=== PATIENT | female | born 1950 | race Caucasian/White ===

== ENCOUNTER 2018-10-13 17:35 | Observation (INO) | payer MEDICARE ==
[2018-10-13 18:16] LABS: Absolute Lymphocytes (CBC) 1.6 K/uL (0.7-4.9); Absolute Monocytes 0.5 K/uL (0.1-1.3); Absolute Neutrophil 5.2 K/uL (1.8-8.0); Eosinophils % 1.2 % (0-4.4); Hematocrit 38.8 % (36.0-45.0); Lymphocytes % 21.8 % (15.3-44.8); MPV 9.8 fL (7.6-11.3); Monocytes % 6.7 % (3.3-12.3); RBC Red Blood Cell Count 4.27 M/uL (3.86-4.86)
[2018-10-13 18:19] LABS: Protime INR 1.05
[2018-10-13] MEDS ORDERED: NITROGLYCERIN 0.4 MG/TAB SL ONE (18:23)
[2018-10-13] MEDS ORDERED: ASPIRIN 81 MG CHEWABLE TABLET ONE (18:23)
[2018-10-13 18:34] LABS: ALT/SGPT 33 U/L (12-78); AST/SGOT 25 U/L (15-37); Albumin 3.6 g/dL (3.4-5.0); Alkaline Phosphatase 95 U/L (45-117); BUN Blood Urea Nitrogen 21 mg/dL (7-18); Bicarbonate 24 mmol/L (21-32); Bilirubin Direct < 0.1 mg/dL (0-0.2); Bilirubin Total 0.4 mg/dL (0.2-1.0); Glucose Level 335 mg/dL (74-106); NT PRO-BNP 39 pg/mL (<125); Potassium 4.4 mmol/L (3.5-5.1); Protein, Total 7.5 g/dL (6.4-8.2); Sodium Level 137 mmol/L (136-145); Troponin (Emerg Dept Use Only) < 0.02 ng/mL (0.0-0.045)
[2018-10-13 18:36] LABS: Magnesium 1.3 mg/dL (1.8-2.4)
--- NOTE | 2018-10-13 18:39 | RAD REPORT ---
EXAM DESCRIPTION: RAD - Chest Single View - 10/13/2018 6:15 pm CLINICAL HISTORY: Chest pain COMPARISON: August 2012 TECHNIQUE: AP portable chest image was obtained 1810 hours . FINDINGS: Lung volumes are low. No peripheral mass or consolidation. Interstitial markings are not s ubstantially different from the comparison. Heart and vasculature are normal. No measurable pleural e ffusion and no pneumothorax. No acute bony abnormality seen. No acute aortic findings suspected. IMPRESSION: No acute cardiopulmonary process. No significant interval change.
[2018-10-13] MEDS ORDERED: MAGNESIUM SULFATE 1 gm IVPB 1 GM/100 ML BAG IV ONE (19:10)
--- NOTE | 2018-10-13 19:24 | ER ---
Nurse's Notes [facility] Name: Annie Zuñiga Age: 68 yrs Sex: Female : 1950 Arrival Date: 10/13/2018 Time: 17:36 Bed 20 Private MD: oHllie Chenug Diagnosis: Chest pain, unspecified-Angina;Shortness of breath;Hypomagnesemia Presentation: 10/13 17:41 Presenting complaint: Patient states: Chest tightness since , SOB starting la1 today. Transition of care: patient was not received from another setting of care. Onset of symptoms was October 13, 2018. Risk Assessment: Do you want to hurt yourself or someone else? Patient reports no desire to harm self or others. Initial Sepsis Screen: Does the patient meet any 2 criteria? No. Patient's initial sepsis screen is negative. Does the patient have a suspected source of infection? No. Patient's initial sepsis screen is negative. Care prior to arrival: None. 17:41 Method Of Arrival: Ambulatory la1 17:41 Acuity: BONI 3 la1 Historical: - Allergies: 17:41 PENICILLINS; la1 - PMHx: 17:41 Diabetes - NIDDM; Gout; Hypertension; kidney failure; ULCER; la1 - Immunization history:: Adult Immunizations up to date. - Social history:: Smoking status: Patient/guardian denies using tobacco. - Ebola Screening: : No symptoms or risks identified at this time. Screenin:51 Abuse screen: Denies threats or abuse. Nutritional screening: No deficits noted. em Tuberculosis screening: No symptoms or risk factors identified. Fall Risk None identified. Assessment: 18:05 General: Appears in no apparent distress. comfortable, Behavior is calm, cooperative, em Denies fever. Pain: Complains of pain in anterior aspect of left upper chest Pain radiates to back Pain currently is 5 out of 10 on a pain scale. Quality of pain is described as pressure, Pain began 2-3 days ago. Is continuous. Neuro: Level of Consciousness is awake, alert, obeys commands, Oriented to person, place, time, situation, Appropriate for age. Cardiovascular: Reports chest pain, fatigue, shortness of breath, Capillary refill < 3 seconds Patient's skin is warm and dry. Rhythm is sinus arrythmia. Respiratory: Reports shortness of breath on exertion Airway is patent Respiratory effort is even, unlabored, Respiratory pattern is regular, symmetrical, Breath sounds are clear bilaterally. Denies cough. GI: Abdomen is flat, Patient currently denies nausea, vomiting. Derm: Skin is intact, is healthy with good turgor, Skin is pink, warm \T\ dry. Musculoskeletal: Range of motion: intact in all extremities. 18:30 Reassessment: Patient appears in no apparent distress at this time. Patient and/or em family updated on plan of care and expected duration. Pain level reassessed. Patient is alert, oriented x 3, equal unlabored respirations, skin warm/dry/pink. reports nitro has helped chest pain rates 0/10 currently, will continue to monitor Patient states feeling better. Patient states symptoms have improved. 19:00 General: Appears in no apparent distress. comfortable, Behavior is calm, cooperative, rr5 appropriate for age. Pain: Denies pain. Neuro: Level of Consciousness is awake, alert, obeys commands, Oriented to person, place, time, situation, Appropriate for age. Cardiovascular: Reports chest pain, fatigue, shortness of breath, Capillary refill < 3 seconds Patient's skin is warm and dry. Respiratory: Airway is patent Respiratory effort is even, unlabored, Respiratory pattern is regular, symmetrical. GI: No signs and/or symptoms were reported involving the gastrointestinal system. : No signs and/or symptoms were reported regarding the genitourinary system. EENT: No signs and/or symptoms were reported regarding the EENT system. Derm: Skin is intact, Skin is pink, warm \T\ dry. Musculoskeletal: Capillary refill < 3 seconds, Range of motion: intact in all extremities. 20:00 Reassessment: Patient appears in no apparent distress at this time. Patient is alert, rr5 oriented x 3, equal unlabored respirations, skin warm/dry/pink. awaiting of room assignment, no complaints made. 21:25 Reassessment: Patient appears in no apparent distress at this time. Patient is alert, rr5 oriented x 3, equal unlabored respirations, skin warm/dry/pink. call made to medical surgical floor and accepted the case by Angelita CABELLO Patient denies pain at this time. Patient states feeling better. Patient states symptoms have improved. Vital Signs: 17:42 Pulse 74; Resp 18; Temp 97.6; Pulse Ox 99% on R/A; Weight 83.91 kg; Height 5 ft. 2 in. la1 (157.48 cm); 17:43 BP 152 / 92; Pain 5/10; la1 18:05 BP 152 / 64; Pulse 77; Resp 18; Pulse Ox 98% on R/A; Pain 5/10; em 18:15 BP 117 / 68; Pulse 85; Resp 18; Pulse Ox 97% on R/A; Pain 1/10; em 18:30 BP 124 / 76; Pulse 81; Resp 18; Pulse Ox 96% on R/A; Pain 0/10; em 19:00 BP 120 / 75; Pulse 72; Resp 16; Temp 98.3; Pulse Ox 100% ; Pain 0/10; rr5 20:00 BP 121 / 71; Pulse 79; Resp 19; Pulse Ox 99% ; rr5 21:00 BP 126 / 71; Pulse 75; Resp 17; Temp 98.3; Pulse Ox 100% ; Pain 0/10; rr5 17:42 Body Mass Index 33.84 (83.91 kg, 157.48 cm) la1 ED Course: 17:36 Patient arrived in ED. as 17:37 Hollie Cheung MD is Private Physician. as 17:42 Triage completed. la1 17:42 Arm band placed on left wrist. la1 17:46 Keron Greco NP is PHCP. pm1 17:46 Sanjeev Chicas MD is Attending Physician. pm1 17:48 Ry Dunham LVN is Primary Nurse. em 18:00 Warm blanket given. Pillow given. jp3 18:00 Placed in gown. Bed in low position. Call light in reach. Side rails up X 1. Side rails jp3 up X2. radiation monitor on. Pulse ox on. NIBP on. 18:00 EKG done, by ED staff, reviewed by Keron Greco NP. jp3 18:05 Initial lab(s) drawn, by me, sent to lab. Inserted saline lock: 20 gauge in right em antecubital area, using aseptic technique. Blood collected. 18:05 Patient maintains SpO2 saturation greater than 95% on room air. em 18:12 X-ray completed. Portable x-ray completed in exam room. Patient tolerated procedure la2 well. 18:15 XRAY Chest (1 view) In Process Unspecified. EDMS 18:38 Notified Nurse Practitioner and/or Physician Distillery Worker of a critical lab result(s), la1 1.3. 19:22 Loren Varela MD is Hospitalizing Provider. pm1 21:27 No provider procedures requiring assistance completed. Patient admitted, IV remains in rr5 place. intact, No redness/swelling at site. Administered Medications: 18:15 Drug: Aspirin 325 mg Route: PO; em 21:12 Follow up: Response: No adverse reaction rr5 18:15 Drug: Nitroglycerin 0.4 mg Route: Sublingual; em 21:12 Follow up: Response: No adverse reaction rr5 19:04 Drug: Magnesium Sulfate 1 grams Route: IVPB; Infused Over: 1 hrs; Site: right rr5 antecubital; 20:04 Follow up: Response: No adverse reaction; IV Status: Completed infusion; IV Intake: rr5 100ml Intake: 20:04 IV: 100ml; Total: 100ml. rr5 Outcome: 19:23 Decision to Hospitalize by Provider. pm1 21:27 Admitted to Med/surg accompanied by tech, via wheelchair, room 224, with chart, Report rr5 called to [place] 21:27 Condition: stable 21:27 Instructed on the need for admit. 21:44 Patient left the ED. rr5 Signatures: Dispatcher [employer] EDAZ Ry Dunham, AIR TECHNICIAN AIR TECHNICIAN Kendal Villasenor Lee, RN RN la1 Keron Greco, OPEN HEARTH HELPER OPEN HEARTH HELPER pm1 Sheila Tafoya la2 Rufus Cha 3 Jag Buck, RN RN rr5
--- NOTE | 2018-10-13 19:24 | EDPHYS ---
Physician Documentation [facility] Name: Annie Zuñiga Age: 68 yrs Sex: Female : 1950 Arrival Date: 10/13/2018 Time: 17:36 Bed 20 Private MD: Hollie Cheung ED Physician Sanjeev Chicas HPI: 10/13 19:13 This 68 yrs old Female presents to ER via Ambulatory with complaints of Chest pm1 Pain, Back Pain. 19:13 The patient or guardian reports chest pain that is located primarily in the mid-sternal pm1 area. Onset: 3 day(s) ago. The pain radiates to back. Associated signs and symptoms: Pertinent positives: shortness of breath, Pertinent negatives: abdominal pain, cough, diaphoresis, dizziness, headache, nausea, palpitations, vomiting. The chest pain is described as a pressure. Duration: The patient or guardian reports multiple episodes. Modifying factors: The symptoms are alleviated by nothing. the symptoms are aggravated by exertion, walking. Severity of pain: in the emergency department the pain is a 5 / 10. The patient has experienced a previous episode, approximately 2 years ago. The patient has not recently seen a physician, the patient's primary care provider is Hollie Robb. Patient with onset of chest pain on while she was at the [place]. Pressure sensation that worsened with exertion. Onset of shortness of breath with chest pain. Chest pain that started on lasted until Sunday. On Sunday, the patient was symptom free. Today the chest pain started at 1500 along with SOB. Patient has nitro but did not know when she should take the medications. The last time that she took nitro was two years ago at [facility] for chest pain. Historical: - Allergies: 17:41 PENICILLINS; la1 - PMHx: 17:41 Diabetes - NIDDM; Gout; Hypertension; kidney failure; ULCER; la1 - Immunization history:: Adult Immunizations up to date. - Social history:: Smoking status: Patient/guardian denies using tobacco. - Ebola Screening: : No symptoms or risks identified at this time. ROS: 19:13 Constitutional: Negative for fever, chills, and weight loss, Eyes: Negative for injury, pm1 pain, redness, and discharge, ENT: Negative for injury, pain, and discharge, Neck: Negative for injury, pain, and swelling. 19:13 Abdomen/GI: Negative for abdominal pain, nausea, vomiting, diarrhea, and constipation, Back: Negative for injury and pain, : Negative for injury, bleeding, discharge, and swelling, MS/Extremity: Negative for injury and deformity, Skin: Negative for injury, rash, and discoloration, Neuro: Negative for headache, weakness, numbness, tingling, and seizure. 19:13 Cardiovascular: Positive for chest pain, Negative for edema, orthopnea, palpitations. 19:13 Respiratory: Positive for shortness of breath, Negative for cough, sputum production, wheezing. Exam: 19:13 Constitutional: This is a well developed, well nourished patient who is awake, alert, pm1 and in no acute distress. Head/Face: Normocephalic, atraumatic. Eyes: Pupils equal round and reactive to light, extra-ocular motions intact. Lids and lashes normal. Conjunctiva and sclera are non-icteric and not injected. Cornea within normal limits. Periorbital areas with no swelling, redness, or edema. ENT: Nares patent. No nasal discharge, no septal abnormalities noted. Tympanic membranes are normal and external auditory canals are clear. Oropharynx with no redness, swelling, or masses, exudates, or evidence of obstruction, uvula midline. Mucous membranes moist. Neck: Trachea midline, no thyromegaly or masses palpated, and no cervical lymphadenopathy. Supple, full range of motion without nuchal rigidity, or vertebral point tenderness. No Meningismus. Chest/axilla: Normal chest wall appearance and motion. Nontender with no deformity. No lesions are appreciated. Cardiovascular: Regular rate and rhythm with a normal S1 and S2. No gallops, murmurs, or rubs. Normal PMI, no JVD. No pulse deficits. Respiratory: Lungs have equal breath sounds bilaterally, clear to auscultation and percussion. No rales, rhonchi or wheezes noted. No increased work of breathing, no retractions or nasal flaring. Abdomen/GI: Soft, non-tender, with normal bowel sounds. No distension or tympany. No guarding or rebound. No evidence of tenderness throughout. Back: No spinal tenderness. No costovertebral tenderness. Full range of motion. Skin: Warm, dry with normal turgor. Normal color with no rashes, no lesions, and no evidence of cellulitis. MS/ Extremity: Pulses equal, no cyanosis. Neurovascular intact. Full, normal range of motion. 19:13 Neuro: Orientation: is normal, Motor: is normal, Sensation: is normal, no obvious gross deficits. Vital Signs: 17:42 Pulse 74; Resp 18; Temp 97.6; Pulse Ox 99% on R/A; Weight 83.91 kg; Height 5 ft. 2 in. la1 (157.48 cm); 17:43 BP 152 / 92; Pain 5/10; la1 18:05 BP 152 / 64; Pulse 77; Resp 18; Pulse Ox 98% on R/A; Pain 5/10; em 18:15 BP 117 / 68; Pulse 85; Resp 18; Pulse Ox 97% on R/A; Pain 1/10; em 18:30 BP 124 / 76; Pulse 81; Resp 18; Pulse Ox 96% on R/A; Pain 0/10; em 19:00 BP 120 / 75; Pulse 72; Resp 16; Temp 98.3; Pulse Ox 100% ; Pain 0/10; rr5 20:00 BP 121 / 71; Pulse 79; Resp 19; Pulse Ox 99% ; rr5 21:00 BP 126 / 71; Pulse 75; Resp 17; Temp 98.3; Pulse Ox 100% ; Pain 0/10; rr5 17:42 Body Mass Index 33.84 (83.91 kg, 157.48 cm) la1 MDM: 17:55 Patient medically screened. pm1 19:13 Data reviewed: vital signs. pm1 19:13 Data interpreted: Pulse oximetry: on room air is 100 %. Interpretation: normal. pm1 19:13 Counseling: I had a detailed discussion with the patient and/or guardian regarding: the pm1 historical points, exam findings, and any diagnostic results supporting the discharge/admit diagnosis, lab results, radiology results, the need for further work-up and treatment in the hospital. 19:13 ED course: Patient currently chest pain free and without shortness of breath after two pm1 doses of nitro. Initial dose took patient to 1/10 pain and second dose resolved it.. 10/13 17:56 Order name: Basic Metabolic Panel; Complete Time: 18:37 pm1 10/13 17:56 Order name: CBC with Diff; Complete Time: 18:37 pm1 10/13 17:56 Order name: LFT's; Complete Time: 18:37 pm1 10/13 17:56 Order name: Magnesium; Complete Time: 18:37 pm1 10/13 17:56 Order name: NT PRO-BNP; Complete Time: 18:37 pm1 10/13 17:56 Order name: PT-INR; Complete Time: 18:33 pm1 10/13 17:56 Order name: Troponin (emerg Dept Use Only); Complete Time: 18:37 pm1 10/13 20:57 Order name: Basic Metabolic Panel EDMS 10/13 20:57 Order name: Basic Metabolic Panel EDMS 10/13 20:57 Order name: CBC with Automated Diff EDMS 10/13 20:57 Order name: CBC with Automated Diff EDMS 10/13 20:57 Order name: Lipid Profile EDMS 10/13 20:57 Order name: Lipid Profile EDMS 10/13 20:57 Order name: Troponin I EDMS 10/13 17:56 Order name: XRAY Chest (1 view); Complete Time: 18:40 pm1 10/13 17:56 Order name: EKG; Complete Time: 17:56 pm1 10/13 17:56 Order name: Cardiac monitoring; Complete Time: 18:08 pm1 10/13 17:56 Order name: EKG - Nurse/Tech; Complete Time: 18:08 pm1 10/13 20:57 Order name: CONS Physician Consult EDMS 10/13 20:57 Order name: Heart Healthy EDMS 10/13 20:57 Order name: Echo with Doppler EDMS 10/13 20:57 Order name: EKG Electrocardiogram EDMS 10/13 20:57 Order name: EKG Electrocardiogram EDMS 10/13 20:57 Order name: Troponin I EDMS 10/13 20:57 Order name: Troponin I EDWY 10/13 21:22 Order name: Urine Dipstick--Ancillary (enter results) id 10/13 21:34 Order name: Urine Dipstick-Ancillary EDWY 10/13 17:56 Order name: IV Saline Lock; Complete Time: 18:08 pm1 10/13 17:56 Order name: Labs collected and sent; Complete Time: 18:08 pm1 10/13 17:56 Order name: O2 Per Protocol; Complete Time: 18:08 pm1 10/13 17:56 Order name: O2 Sat Monitoring; Complete Time: 18:08 pm1 Administered Medications: 18:15 Drug: Aspirin 325 mg Route: PO; em 21:12 Follow up: Response: No adverse reaction rr5 18:15 Drug: Nitroglycerin 0.4 mg Route: Sublingual; em 21:12 Follow up: Response: No adverse reaction rr5 19:04 Drug: Magnesium Sulfate 1 grams Route: IVPB; Infused Over: 1 hrs; Site: right rr5 antecubital; 20:04 Follow up: Response: No adverse reaction; IV Status: Completed infusion; IV Intake: rr5 100ml Disposition: 10/14 12:05 Co-signature as Attending Physician, Sanjeev Chicas MD. Disposition: 10/13/18 19:23 Hospitalization ordered by Loren Varela for Inpatient Admission. Preliminary diagnosis are Chest pain, unspecified - Angina, Shortness of breath, Hypomagnesemia. - Bed requested for Telemetry/MedSurg (Inpatient). - Status is Inpatient Admission. rr5 - Condition is Stable. - Problem is new. - Symptoms have improved. UTI on Admission? No Signatures: Dispatcher [employer] EDMS Ry Dunham, FOOD PREP WORKER FOOD PREP WORKER Mookie Cuellar, RN RN la1 Keron Greco, TRANSPORTATION LEAD TRANSPORTATION LEAD pm1 Sanjeev Chicas MD MD Rufus Cha jp3 Jag Buck, IRINEO RN rr5 Corrections: (The following items were deleted from the chart) 10/13 19:24 19:23 Hospitalization Ordered by Loren Varela MD for Inpatient Admission. Preliminary pm1 diagnosis is Chest pain, unspecified - Angina; Shortness of breath. Bed requested for Telemetry/MedSurg (Inpatient). Status is Inpatient Admission. Condition is Stable. Problem is new. Symptoms have improved. UTI on Admission? No. pm1 21:00 19:24 10/13/2018 19:23 Hospitalization Ordered by Loren Varela MD for Inpatient jp3 Admission. Preliminary diagnosis is Chest pain, unspecified - Angina; Shortness of breath; Hypomagnesemia. Bed requested for Telemetry/MedSurg (Inpatient). Status is Inpatient Admission. Condition is Stable. Problem is new. Symptoms have improved. UTI on Admission? No. pm1 21:44 21:00 10/13/2018 19:23 Hospitalization Ordered by Loren Varela MD for Inpatient rr5 Admission. Preliminary diagnosis is Chest pain, unspecified - Angina; Shortness of breath; Hypomagnesemia. Bed requested for Telemetry/MedSurg (Inpatient). Status is Inpatient Admission. Condition is Stable. Problem is new. Symptoms have improved. UTI on Admission? No. jp3
[2018-10-13] MEDS ORDERED: ACETAMINOPHEN 500 MG TAB PO PRN (20:50)
[2018-10-13] MEDS ORDERED: ALPRAZOLAM 0.25 MG TABLET PO PRN (20:50)
[2018-10-13] MEDS ORDERED: MORPHINE 4 MG/ML SYR IV PRN (20:50)
[2018-10-13 21:33] LABS: Urine Blood NEGATIVE (NEG); Urine Glucose 1+ (NEG); Urine Protein NEGATIVE (NEG); Urine Specific Gravity 1.015 (1.005-1.030)
[2018-10-13 22:10] VITALS: BMI 32.5
[2018-10-13] MEDS: METOPROLOL TAR 50 MG TAB PO SCH (22:37)
[2018-10-14 06:10] LABS: Absolute Lymphocytes (CBC) 2.4 K/uL (0.7-4.9); Absolute Monocytes 0.7 K/uL (0.1-1.3); Absolute Neutrophil 5.8 K/uL (1.8-8.0); Eosinophils % 2.1 % (0-4.4); Hematocrit 37.9 % (36.0-45.0); Lymphocytes % 26.2 % (15.3-44.8); MPV 9.7 fL (7.6-11.3); Monocytes % 7.8 % (3.3-12.3); RBC Red Blood Cell Count 4.17 M/uL (3.86-4.86)
[2018-10-14 06:31] LABS: BUN Blood Urea Nitrogen 21 mg/dL (7-18); Bicarbonate 24 mmol/L (21-32); Glucose Level 116 mg/dL (74-106); HDL Cholesterol 29 mg/dL (40-60); LDL Cholesterol, Calculated 106 (<130); Potassium 4.7 mmol/L (3.5-5.1); Sodium Level 138 mmol/L (136-145); Troponin I < 0.02 ng/mL (0.0-0.045)
[2018-10-14] MEDS ORDERED: Magnesium Sulfate 2gm IVPB 2 G/50 ML BAG IV ONE (06:31)
[2018-10-14] MEDS ORDERED: NA CHLORIDE 0.9% 50 ML ONE (06:53)
--- NOTE | 2018-10-14 07:54 | P.HP ---
Certification for Inpatient Patient admitted to: Observation With expected LOS: <2 Midnights Patient will require the following post-hospital care: None Practitioner: I am a practitioner with admitting privileges, knowledge of patient current condition, hospital course, and medical plan of care. Services: Services provided to patient in accordance with Admission requirements found in Title 42 Section 412.3 of the Code of Federal Regulations Patient History Date of Service: 10/14/18 Reason for admission: Chest pain rule out acute coronary syndrome History of Present Illness: Patient is a 68-year-old female came to the hospital with chest pain. Patient's pain was in the sternal region and she was short of breath. She has been followed as an outpatient with Cardiology in [place]. However, she states she has not had any procedures. She came in for further workup. Her workup was unremarkable. Troponins and EKG have been negative. Will go ahead and await echocardiogram and stress test today. Allergies Penicillins Allergy (Intermediate, Verified 08/28/12 23:49) Hives/Rash Home Medications: Allopurinol 100 mg PO DAILY 10/13/18 Glimepiride 1 mg PO DAILY 10/13/18 Insulin Glargine,Hum.rec.anlog [Lantus Solostar] 25 unit SQ DAILY 10/13/18 Levothyroxine Sodium 50 mcg PO DAILY 10/13/18 Lisinopril [Prinivil*] 5 mg PO DAILY 10/13/18 Lovastatin 20 mg PO DAILY 10/13/18 Metoprolol Tartrate 25 mg PO DAILY 10/13/18 Sitagliptin Phosphate [Januvia] 50 mg PO DAILY 10/13/18 Sucralfate [Carafate*] 1 g PO DAILY 10/13/18 - Past Medical/Surgical History Has patient received pneumonia vaccine in the past: Yes Diabetic: Yes -: DM -: HTN -: gout -: kidney failure -: ulcer -: hysterectomy -: tonsillectomy - Family History Father Notes: History of heart disease Sister Medical History: Heart disease - Social History Smoking Status: Never smoker Alcohol use: No Caffeine use: No Place of Residence: Home Review of Systems 10-point ROS is otherwise unremarkable Physical Examination - Vital Signs Temperature: 97.9 F Blood Pressure: 113/64 Pulse: 69 Respirations: 16 Pulse Ox (%): 97 - Physical Exam General: Alert, In no apparent distress, Oriented x3 HEENT: Atraumatic, PERRLA, Mucous membr. moist/pink, EOMI, Sclerae nonicteric Neck: Supple, 2+ carotid pulse no bruit, No LAD, Without JVD or thyroid abnormality Respiratory: Clear to auscultation bilaterally, Normal air movement Cardiovascular: Regular rate/rhythm, Normal S1 S2, No murmurs Gastrointestinal: Normal bowel sounds, Soft and benign, Non-distended, No tenderness Musculoskeletal: No clubbing, No swelling, No tenderness Integumentary: No rashes Neurological: Normal gait, Normal speech, Normal strength at 5/5 x4 extr, Normal tone, Sensation intact, Cranial nerves 3-12 intact, Normal affect Lymphatics: No axilla or inguinal lymphadenopathy - Studies Laboratory Data (last 24 hrs) 10/13/18 18:05: PT 12.4, INR 1.05 10/13/18 18:05: WBC 7.5, Hgb 13.1, Hct 38.8, Plt Count 219 10/13/18 18:05: Sodium 137, Potassium 4.4, BUN 21 H, Creatinine 1.65 H, Glucose 335 H, Magnesium 1.3 L*, Total Bilirubin 0.4, AST 25, ALT 33, Alkaline Phosphatase 95 Assessment & Plan - Problems (Diagnosis) (1) Chest pain, rule out acute myocardial infarction Current Visit: Yes Status: Acute (2) Hypertension Current Visit: Yes Status: Acute (3) Dyslipidemia Current Visit: Yes Status: Acute (4) Family history of cardiac disorder Current Visit: Yes Status: Acute - Plan 1. Serial troponins and EKG 2. Cardiology consultation 3. Echocardiogram and stress test 4. Anti-platelet therapy, anti coagulation, beta-jayy, statin, and O2 as needed 5. IV morphine for pain 6. Nitro p.r.n. 7. GI and DVT prophylaxis Discharge Plan: Home Plan to discharge in: 24 Hours - Advance Directives Does patient have a Living Will: No Does patient have a Durable POA for Healthcare: No - Code Status/Comfort Care Code Status Assessed: Yes Code Status: Full Code Critical Care: No Time Spent Managing PTS Care (In Minutes): 50
[2018-10-14] MEDS ORDERED: GLIMEPIRIDE 2 MG TABLET PO SCH (08:00)
[2018-10-14] MEDS ORDERED: ASPIRIN EC 81 MG TAB PO SCH (09:00)
[2018-10-14] MEDS ORDERED: ALLOPURINOL 100 MG TAB PO SCH (09:00)
[2018-10-14] MEDS ORDERED: ENOXAPARIN 40 MG/0.4 ML SQ SCH (09:00)
[2018-10-14] MEDS ORDERED: INSULIN GLARGINE 100 UNITS/ML SQ SCH (09:00)
--- NOTE | 2018-10-14 09:12 | EKG ---
Test Date: 2018-10-13 Test Time: 17:52:52 Plate Former: SANDRA MEASUREMENT RESULTS: Intervals: Rate: 72 MD: 168 QRSD: 88 QT: 388 QTc: 424 [place]: P: 22 MD: 168 QRS: 41 T: 11 INTERPRETIVE STATEMENTS: Normal sinus rhythm Normal ECG Compared to ECG 08/29/2012 06:25:24 Sinus bradycardia no longer present Electronically Signed On 10-14-18 09:11:43 SHAKER REPAIRER by Darrell Hernández
[2018-10-14] MEDS ORDERED: GLUCAGON 1 MG/VIAL IM PRN (09:31)
[2018-10-14] MEDS ORDERED: D50W 25 GM/50 ML SYRINGE IV PRN (09:31)
[2018-10-14] MEDS: METOPROLOL TAR 50 MG TAB PO SCH (09:45)
[2018-10-14] MEDS ORDERED: REGADENOSON 0.4 MG/5 ML SYR IV ONE (10:36)
--- NOTE | 2018-10-14 11:21 | P.SSS ---
Patient History Date of Service: 10/14/18 Reason for admission: Chest pain rule out acute coronary syndrome History of Present Illness: Patient is a 68-year-old female came to the hospital with chest pain. Patient's pain was in the sternal region and she was short of breath. She has been followed as an outpatient with Cardiology in [place]. However, she states she has not had any procedures. She came in for further workup. Her workup was unremarkable. Troponins and EKG have been negative. Allergies Penicillins Allergy (Intermediate, Verified 08/28/12 23:49) Hives/Rash Home Medications: Allopurinol 100 mg PO DAILY 10/13/18 Glimepiride 1 mg PO DAILY 10/13/18 Insulin Glargine,Hum.rec.anlog [Lantus Solostar] 25 unit SQ DAILY 10/13/18 Levothyroxine Sodium 50 mcg PO DAILY 10/13/18 Lisinopril [Prinivil*] 5 mg PO DAILY 10/13/18 Lovastatin 20 mg PO DAILY 10/13/18 Metoprolol Tartrate 25 mg PO DAILY 10/13/18 Sitagliptin Phosphate [Januvia] 50 mg PO DAILY 10/13/18 Sucralfate [Carafate*] 1 g PO DAILY 10/13/18 - Past Medical/Surgical History Has patient received pneumonia vaccine in the past: Yes Diabetic: Yes -: DM -: HTN -: gout -: kidney failure -: ulcer -: hysterectomy -: tonsillectomy - Family History Father Notes: History of heart disease Sister -: Heart disease - Social History Smoking Status: Never smoker Alcohol use: No CD- Drugs: No Caffeine use: No Place of Residence: Home Review of Systems 10-point ROS is otherwise unremarkable Physical Examination - Vital Signs Temperature: 97.7 F Blood Pressure: 139/74 Pulse: 65 Respirations: 18 Pulse Ox (%): 96 - Physical Exam General: Alert, In no apparent distress HEENT: Atraumatic, PERRLA, Mucous membr. moist/pink, EOMI, Sclerae nonicteric Neck: Supple, 2+ carotid pulse no bruit, No LAD, Without JVD or thyroid abnormality Respiratory: Clear to auscultation bilaterally, Normal air movement Cardiovascular: Regular rate/rhythm, Normal S1 S2 Gastrointestinal: Normal bowel sounds, No tenderness Musculoskeletal: No tenderness Integumentary: No rashes Neurological: Normal gait, Normal speech, Normal strength at 5/5 x4 extr, Normal tone, Normal affect Lymphatics: No axilla or inguinal lymphadenopathy - Studies Laboratory Data (last 24 hrs) 10/13/18 18:05: PT 12.4, INR 1.05 10/13/18 18:05: WBC 7.5, Hgb 13.1, Hct 38.8, Plt Count 219 10/13/18 18:05: Sodium 137, Potassium 4.4, BUN 21 H, Creatinine 1.65 H, Glucose 335 H, Magnesium 1.3 L*, Total Bilirubin 0.4, AST 25, ALT 33, Alkaline Phosphatase 95 - Diagnosis (Problem(s)) (1) Acute kidney injury Current Visit: Yes Status: Acute (2) Chest pain, rule out acute myocardial infarction Current Visit: Yes Status: Acute (3) Dyslipidemia Current Visit: Yes Status: Acute (4) Family history of cardiac disorder Current Visit: Yes Status: Acute (5) Hypertension Current Visit: Yes Status: Acute Treatment Summary: Overall during the hospital stay patient remained stable Patient was initially admitted to the hospital for chest pain ACS rule out. Patient has been followed up by cardiology and [facility]. Patient's troponin x2 in the hospital were negative. EKG was negative as well. Patient had stress test and echocardiogram done here in the hospital which were both within normal limits. No acute coronary syndrome was identified. Patient then was discharged home under stable condition was asked to follow up with cardiology in about 1-2 weeks post discharge. Patient also had acute kidney injury while here in the hospital was kept on IV fluids which had marked improvement in her BUN and creatinine. Patient thus was asked to follow up with primary care doctors well to repeat a BMP in about 2-3 days post discharge. Patient also had elevated triglycerides while here in the hospital and was asked to continue taking her statin at home. Patient was also asked to make any changes to dietary habits that is causing her triglycerides to be high. Patient again demonstrated understanding and thus was discharged home under stable condition - Disposition Disposition: ROUTINE DISCHARGE Condition: GOOD Patient Discharge Instructions: Please followup with your primary care provider in about 1-2 weeks post discharge. The were admitted to the hospital for chest pain rule out ACS. You were Echocardiogram and stress test were both within normal limits. Your asked to follow up with a primary care provider guarding close monitoring of the other chronic condition Diet: Regular Activity: Ad maylin
[2018-10-14] MEDS: INSULIN -REGULAR HUMAN 50 UNIT/0.5 ML ML SQ SCH ×2 (13:24→16:26)
--- NOTE | 2018-10-14 13:25 | RAD REPORT ---
EXAM DESCRIPTION: NM - Rest Stress Cardiac Imaging - 10/14/2018 1:18 pm CLINICAL HISTORY: Chest pain. COMPARISON: 2007 TECHNIQUE: The patient was administered approximately 10mCi of Tc 99m Sestamibi prior to resting SPE CT imaging of the heart. The patient was then administered approximately 30 mCi of Tc 99m Sestamibi f ollowing exercise or pharmacologic stress. Multiplanar SPECT images were reviewed. FINDINGS: A small area of diminished radiotracer uptake involves the apical left ventricular myocar dium on rest and stress images. The left ventricular ejection fraction equals 70%. IMPRESSION: Small apparent fixed perfusion defect involving the apical left ventricular myocardium probably secondary to physiologic thinning. Small infarct considered less likely No evidence of stress-induced ischemia
--- NOTE | 2018-10-14 13:41 | TREADPHA ---
DX: CHEST PAIN Date of Study: 10/14/18 Ht: 5 2 Wt: 178 lb 4.8 oz Consulting Physician: DARIUS MEDICATIONS: TYLENOL, XANAX, LOVENOX, AMARYL, LANTAS, SYNTHROID, ZYLOPRIM, LOPRESSOR. HISTORY: 68 YEAR FEMALE, COMPLAINTS OF CHEST PAIN. HISTORY: DM, HYPERTENSION, GOUT, KIDNEY FAILURE, ULCER, NON-SMOKER, NON-DRINKER. PHYSICIAL EXAMINATION: RESTING B.P.: 130/82 RESTING H.R.: 65 RESTING EKG: NORMAL PROTOCOL: LEXISCAN EXERCISE TIME: 3:30 B.P. AT PEAK STRESS: 159/91 IMPRESSION: LEXISCAN INJECTED, FOLLOWED BY CARDIOLITE PER PROTOCOL, SEE NUCLEAR MEDICINE REPORT. NO SUPRAVENTRICULAR TACHYCARDIA, NO VENTRICULAR TACHYCARDIA. THREE PREVENTRICULAR ATRIAL COMPLEXS DURING PROCEDURE. NO PREMATURE VENTRICULAR COMPLEXS. PATIENT REPORTED NO CHEST PAIN , OR TIGHTNESS THROUGHOUT THE PROCEDURE, OR IN RECOVERY. NON-DIAGNOSTIC ELECTROCARDIOGRAM WITH LEXISCAN STRESS.
[2018-10-14 14:34] VITALS: O2SAT 97
--- NOTE | 2018-10-14 15:15 | CON ---
Mrs. Zuñiga is 68. She has enjoyed good health until the past couple of years when she was diagnosed with diabetes. She got chest pain and had a stress test at [facility]. It was about 3 years ago. Apparen tly, it was normal. She has been pain-free until about the last month when she notes that when she e xerts herself, she gets chest pain again, central chest, makes her run out of breath. It has already been ordered that she have a stress test and echo today. Her creatinine is slightly elevated, and a fter some hydration, it is 1.41. Her magnesium level is low also. She has elevated triglycerides, b ut her enzymes are normal. Her electrocardiogram is normal. Physical Examination: Vital signs: Five feet and 2 inches, 178 pounds. HEENT: Normal. Lungs: Clear. Carotids: No bruit. Heart: Normal. Abdomen: Soft. Extremities: Normal. Normal pulses. Medications: Outpatient medications are Carafate, glimepiride, insulin, allopurinol, metoprolol, reji astatin, levothyroxine, Januvia, and lisinopril. Impression: Mrs. Zuñiga may indeed have unstable angina. If the stress test, which is already ordere d, is abnormal, we will recommend doing a cardiac cath. She has had a discussion of what that is, it s indications, potential benefits, and if the stress test is abnormal, she would agree to proceed. DIANNA/MARIA LUISA Voice ID: [id number] Report ID: [id number]
--- NOTE | 2018-10-14 17:39 | ECHO ---
HEIGHT: 5 ft 2 in WEIGHT: 178 lb 4.8 oz DATE OF STUDY: 10/14/[address]: Loren Varela MD 2-DIMENSIONAL: YES M.MODE: YES DOPPLER: YES COLOR FLOW: YES TDS: PORTABLE: DEFINITY: BUBBLE STUDY: DIAGNOSIS: CHEST PAIN, R/O ACS CARDIAC HISTORY: CATHERIZATION: NO SURGERY: NO PROSTHETIC VALVE: NO PACEMAKER: NO MEASUREMENTS (cm) DIASTOLIC (NORMALS) SYSTOLIC (NORMALS) IVSd 1.1 (0.6-1.2) LA Diam 3.8 (1.9-4.0) LVEF 68% LVIDd 4.1 (3.5-5.7) LVIDs 2.6 (2.0-3.5) %FS 38% LVPWd 1.1 (0.6-1.2) Ao Diam 2.5 (2.0-3.7) 2 DIMENSIONAL ASSESSMENT: RIGHT ATRIUM: NORMAL LEFT ATRIUM: NORMAL RIGHT VENTRICLE: NORMAL LEFT VENTRICLE: NORMAL TRICUSPID VALVE: NORMAL MITRAL VALVE: NORMAL PULMONIC VALVE: NORMAL AORTIC VALVE: NORMAL PERICARDIAL EFFUSION: NONE AORTIC ROOT: NORMAL LEFT VENTRICULAR WALL MOTION: NORMAL DOPPLER/COLOR FLOW: TRACE TRICUSPID REGURGITATION. NORMAL RIGHT VENTRICULAR SYSTOLIC PRESSURE. COMMENTS: NORMAL TWO DIMENSIONAL ECHOCARDIOGRAM. TRACE TRICUSPID REGURGITATION. TECHNOLOGIST: BOB STEWARD
[2018-10-14 17:44] VITALS: BP 131/82; TEMP 97.1
[2018-10-15] MEDS ORDERED: LEVOTHYROXINE SOD 0.05 MG TABLET PO SCH (06:30)
== END 2018-10-14 18:51 | disposition home or self-care (01) ==
LOC: ER 17:35 → ERHOLD 21:07 → 2ND 21:26
PROVIDERS: ADMIT Hospitalist; ATTEND Hospitalist
DX: R07.9 Chest pain, unspecified (principal); E11.9 Type 2 diabetes mellitus without complications; I10 Essential (primary) hypertension; N17.9 Acute kidney failure, unspecified; M10.9 Gout, unspecified; E78.5 Hyperlipidemia, unspecified; Z82.49 Family history of ischemic heart disease and other diseases of the circulatory system; Z88.0 Allergy status to penicillin
CPT/HCPCS: 96365; 93005; 93017; 93306; 85025 ×2; 80048 ×2; 36415; 83735; 85610; 80061; 82962 ×3; 80076; 81003; 84484 ×3; 83880; 71045; 78452; 99285; J1650; J3475 ×2; J2785; A9500; G0378 ×2

== ENCOUNTER 2020-06-16 18:37 | Observation (INO) | payer MEDICARE ==
--- OUTSIDE RECORDS SUMMARY | 2020-06-16 18:40 | XMS REPORT ---
:1950 Author Organization [employer] Care Team Providers Name Role Phone Hollie Cheung Provider Role Unavailable Allergies, Adverse Reactions, Alerts Substance Reaction Event Type penicillin Info Not Available Drug Allergy Problems Problem Type Condition Code Onset Dates Condition Statu s Problem Sinus problem J34.9 Active Problem Impaired memory R41.3 Active Problem Allergic rhinitis J30.9 Active Problem Diabetes E11.9 Active Problem Edema R60.9 Active Problem Benign essential HTN I10 Active Assessment Type 2 diabetes mellitus with E11.65 Active hyperglycemia Problem Hyperlipemia E78.5 Active Problem Hypercalcemia E83.52 Active Problem HDL deficiency E78.6 Active Problem Status post fall Z91.81 Active Problem Abnormal mammogram R92.8 Active Problem Abnormality on screening test R68.89 Active Problem Coccygeal pain M53.3 Active Problem Peripheral edema R60.9 Active Problem Left arm pain M79.602 Active Problem Left leg pain M79.605 Active Problem Acute pharyngitis, unspecified J02.9 Active etiology Problem Cough R05 Active Problem Skin lesions L98.9 Active Problem Chronic kidney disease, N18.9 Acti ve unspecified CKD stage Problem Type 2 diabetes mellitus with E11.65 Active hyperglycemia Problem Swelling R60.9 Active Problem Mastalgia N64.4 Active Problem retirement current use of insulin Z79.4 Active Problem Acute pain of left shoulder M25.512 Active Problem Watery eyes H04.203 Active Assessment Gastroesophageal reflux disease, K21.9 Active esophagitis presence not specified Problem Cough R05 Active Assessment Swelling R60.9 Active Problem Shortness of breath R06.02 Active Problem Sea sickness, initial encounter T75.3XXA Active Problem Gastroesophageal reflux disease, K21.9 Active esophagitis presence not specified Problem Other osteoporosis M81.8 Active Problem Constipation, unspecified K59.00 Ac tive constipation type Problem Chronic gout without tophus, [id number].[id number] Active unspecified cause, unspecified site Problem Type 2 diabetes mellitus with E11.21 Active diabetic nephropathy Problem Hypertension, unspecified type I10 Active Problem Chest pain, unspecified type R07.9 Active Problem Hypothyroidism, unspecified type E03.9 Active Problem Essential hypertension I10 Activ e Problem Hyperlipidemia, unspecified E78.5 Active hyperlipidemia type Problem Suprapubic abdominal pain R10.2 Ac tive Problem Abnormal kidney function N28.9 Act rayna Problem Hypomagnesemia E83.42 Active Medications Medication Code Code Instructions Start End Status Dosage System Date Date Allopurinol [facility] 25067472649 100 MG Orally October Active 2 tablets Once a day 2018 Blood Glucose NDC 0 as directed October Active as di rected Monitor Test BS three 2018 (DISPENSE times daily BLOOD GLUCOSE MONITOR FORMULARY TO INSURANCE) Albuterol [facility] 89148763941 108 (90 Base) Active 2 pu ffs as Sulfate HFA MCG/ACT needed Inhalation every 6 hrs Nitroglycerin [facility] 59191744883 0.4 MG Active not de fined Sublingual Lantus SoloStar ND 34298462592 100 UNIT/ML Active 40 - 45 Subcutaneous units Once daily Lovastatin ND 11436819822 20 mg Orally Active 1 ta blet in Once a day evening Januvia ND 65184583590 100 MG Orally Active 1 tabl et Once a day Levothyroxine ND 42111097312 50 MCG Orally Active 1 tablet on Sodium Once a day an empty stomach in the morning Blood Glucose NDC 0 as directed Active as di rected Test Strip Test BS three ( FOR times daily FREESTYLE LITE BS MONITOR) [place] [facility] 90395467434 32G X 4 MM Aug 29, Active as di rected 2018 Famotidine ND 31664137156 20 MG Orally March 11, Active 1 t ablet Twice a day for 2019 reflux Glimepiride ND 15411691300 1 MG Orally Active 1 ta blet Once a day Chlorhexidine ND 81809938364 0.12 % Active SWISH AND Gluconate SPIT 15 ML IN MOUTH TWICE DAILY NEEDED Metoprolol ND 81823369854 25 mg Orally Active 1/2 tablet Tartrate Twice a day Sucralfate ND 08869690549 1 GM Orally up Active 1 tablet as to 4 times needed daily Lisinopril ND 05430028874 5 MG Orally Active 1 tab let Once a day Lancets [facility] 62359553180 - as directed October Active as dir ected Test BS three 2018 (dispense times daily lancets formulary to insurance) Results No Known Results Summary Purpose eClinicalWorks Submission
--- OUTSIDE RECORDS SUMMARY | 2020-06-16 18:40 | XMS REPORT ---
:1950 Author Organization [facility] Care Team Providers Name Role Phone Hollie Cheung Provider Role Unavailable Allergies No Known Allergies Problems Problem Type Condition Code Onset Dates Condition Statu s Problem Sinus problem J34.9 Active Problem Impaired memory R41.3 Active Problem Allergic rhinitis J30.9 Active Problem Diabetes E11.9 Active Problem Edema R60.9 Active Problem Benign essential HTN I10 Active Problem Hyperlipemia E78.5 Active Problem Hypercalcemia E83.52 [...] R60.9 Active Problem Mastalgia N64.4 Active Problem residential current use of insulin Z79.4 Active Problem Acute pain of left shoulder M25.512 Active Problem Watery eyes H04.203 Active Problem Cough R05 Active Problem Shortness of breath R06.02 Active [...] Act rayna Problem Hypomagnesemia E83.42 Active Medications No Known Medications Results No Known Results Summary Purpose eClinicalWorks Submission
--- OUTSIDE RECORDS SUMMARY | 2020-06-16 18:40 | XMS REPORT ---
:1950 [facility] Team Providers Name Role Phone [...] R60.9 Active Problem Mastalgia N64.4 Active Problem [facility] current use of insulin Z79.4 Active Problem Acute pain of left shoulder M25.512 Active Problem Watery eyes H04.203 Active Assessment Type 2 diabetes mellitus with E11.65 Active hyperglycemia Problem Cough R05 Active Problem Shortness of [...] Medications Medication Code Code Instructions Start End Date Status Dosage System Date Atul [facility] [id number] 100 UNIT/ML Active 45 units SoloStar Subcutaneous Once daily Results No Known Results Summary Purpose eClinicalWorks Submission
--- OUTSIDE RECORDS SUMMARY | 2020-06-16 18:40 | XMS REPORT | Continuity of Care Document ---
:1950 Author Organization [facility] t Address [address] [place] [address] Care Team Providers Name Role Phone Unavailable Unavailable Unavailable Problems Condition Condition Condition Status Onset Resolution Last Treating Co mments Source Name Details Category Date Date Treatment Clinician Date FCI FCI Problem Active [facility] current current [facility] - use of use of Memoria insulin insulin l [facility] Clin[facility] Type 2 Type [address] [facility] diabetes diabetes [facility] - mellitus mellitus Memori a with with l hyperglyce hyperglyce Ou tpati jatin [facility] ent Clinics Hyperlipid Hyperlipid Problem Active [facility] emia, emia, [facility] - unspecifie unspecifie Me moria d d l hyperlipid hyperlipid Ou tpati emia type emia type ent Clinics Hypothyroi Hypothyroi Problem Active [facility] dism, dism, [facility] - unspecifie unspecifie Me moria d type d type l Outpati ent Clinics Chronic Chronic Problem Active [facility] gout gout [facility] - without without Memoria tophus, tophus, l unspecifie unspecifie Ou tpati d cause, d cause, ent unspecifie unspecifie Cl inics d site d site Essential Essential Problem Active [facility] hypertensi hypertensi [place] - on on Memoria l [facility] Clinics Sea Sea Problem Active [facility] sickness, sickness, Luke s - initial initial Memoria encounter encounter l [facility] Clin[facility] Other Other Problem Active [facility] osteoporos osteoporos [place] - is is Memoria l [facility] Clinics Impaired Impaired Problem Active [facility] memory memory [facility] - Memoria l [facility] Swelling Swelling Problem Active [facility] l [facility] Type 2 Type [address] [facility] diabetes diabetes [facility] - mellitus mellitus Memori a with with l diabetic diabetic Outpat i nephropath nephropath en t y y Clinics Abnormal Abnormal Problem Active [facility] kidney kidney [facility] - function function Memori a l [facility] ent Clinics Gastroesop Gastroesop Problem Active [facility] hageal hageal [facility] - reflux reflux Memoria disease, disease, l esophagiti esophagiti Ou tpati s presence s presence en t not not Clinics specified specified Chest Chest Problem Active [facility] pain, pain, [facility] - unspecifie unspecifie Me moria d type d type l [facility] ent Clinics Abnormalit Abnormalit Problem Active [facility] y on y on [facility] - screening screening Tushar nina test test l [facility]ics Sinus Sinus Problem Active [facility] problem problem [facility] - Memoria l [facility] ent Clinics Allergic Allergic Problem Active [facility] rhinitis rhinitis [facility] - Memoria l [facility] ent Clinics Left leg Left leg Problem Active [facility] pain pain [facility] - Memoria l [facility] Clinics Diabetes Diabetes Problem Active [facility] Mem[facility] ent Clinics Hypomagnes Hypomagnes Problem Active [facility] emia emia [facility] - Memoria l [facility] ent Clinics Constipati Constipati Problem Active [facility] on, on, [facility] - unspecifie unspecifie Me moria d d l constipati constipati Ou tpati on type on type ent Clinics Abnormal Abnormal Problem Active [facility] mammogram mammogram Luke s - Memoria l [facility] ent Clinics Suprapubic Suprapubic Problem Active [facility] abdominal abdominal Luke s - pain pain Memoria l [facility] ent Clinics HDL HDL Problem Active [facility] deficiency deficiency [place] - Memoria l [facility] ent Clinics Status Status Problem Active [facility] post fall post fall Luke s - Memoria l [facility] ent Clinics Hypercalce Hypercalce Problem Active [facility] jatin jatin [facility] - Memoria l [facility] ent Clinics Chronic Chronic Problem Active [facility] kidney kidney [facility] - disease, disease, Memori a unspecifie unspecifie l d CKD d CKD [facility] stage stage ent Clinics Skin Skin Problem Active [facility] lesions lesions [facility] - Memoria l [facility] ent Clinics Coccygeal Coccygeal Problem Active [facility] pain pain [facility] - Memoria l [facility] ent Clinics Mastalgia Mastalgia Problem Active [facility] - Memoria l [facility] Left arm Left arm Problem Active [facility] pain pain [facility] - Memoria l [facility] ent Clinics Watery Watery Problem Active [facility] eyes eyes [facility] - Memoria l [facility] ent [facility] Acute pain Acute pain Problem Active [facility] of left of left [facility] - shoulder shoulder Memori a l [facility] ent Clinics Cough Cough Problem Active [facility] kes - Memoria l [facility] ent [facility] Shortness Shortness Problem Active [facility] of breath of breath ke s - Memoria l [facility] ent [facility] Acute Acute Problem Active [facility] pharyngiti pharyngiti [place] - s, s, Memoria unspecifie unspecifie l d etiology d etiology Ou [facility] ent Clinics Allergies, Adverse Reactions, Alerts Allergy Allergy Status Severity Reaction(s) Onset Inactive Treating Comm ents Source Name Type Date Date Clinician penicill Adverse Active Info Not [facility] in Reaction Available [facility] ent [facility] Medications Ordered Filled Start Stop Current Ordering Indication Dosage Frequency Signature Comments Components Source Medication Medication Date Date Medication? Clinician (SIG) Name Name Atul Pollard Yes Hollie [address] [facility] [address] SoloStar [facility] [facility] Procedures This patient has no known procedures. Encounters Start End Encounter Admission Attending Care Care Encounter Source Date/Time Date/Time Type Type Clinicians Facility Department ID 2020-04-27 2020-04-27 Outpatient [facility] [id number] [facility] [address] 15:47:00 15:47:00 [facility] Medicine Medicine [facility] 2020-04-12 2020-04-12 Outpatient [facility] [id number] [address] 11:12:00 11:12:[facility] Outpati ent Clinics 2020-04-06 2020-04-06 Outpatient [facility] [id number] [address] 08:16:00 08:16:00 [facility] Outpati ent Clinics 2020-03-11 2020-03-11 [facility] [id number] 09:40:00 09:40:00 [employer] [facility] Medicine Medicine [facility] Clinics 2020-01-16 2020-01-16 [facility] [place] [id number] 15:20:00 15:20:00 t [facility] Medicine Outpati ent Clinics 2019-11-27 2019-11-27 [facility] [id number] 10:51:00 10:51:00 t [facility] Medicine Outpati ent Clinics 2019-11-20 2019-11-20 [facility] [id number] 08:43:00 08:43:00 t [facility] Medicine Outpati ent Clinics 2019-11-18 2019-11-18 [facility] [id number] 14:00:00 14:00:00 t [facility] Medicine Outpati ent Clinics 2019-11-18 2019-11-18 [facility] [id number] 10:06:00 10:06:00 [facility] Medicine Outpati ent Clinics 2019-10-28 2019-10-28 [facility] [id number] 16:14:00 16:14:00 t [facility] Medicine Outpati ent Clinics 2019-10-26 2019-10-26 [facility] [id number] [address] 23:58:00 23:58:00 [facility] Medicine Outpati ent Clinics 2019-10-23 2019-10-23 [facility] [id number] 08:30:00 08:30:00 [facility] Medicine Outpati ent Clinics 2019-09-07 2019-09-07 [facility] [id number] 02:09:00 02:09:00 t [facility] Medicine Outpati ent Clinics 2019-09-04 2019-09-04 [facility] [id number] 08:39:00 08:39:00 [facility] Medicine Outpati ent Clinics 2019-09-03 2019-09-03 [facility] [id number] 15:00:00 15:00:00 [facility] Medicine Outpati ent Clinics 2019-08-05 2019-08-05 [facility] [id number] 08:20:00 08:20:00 [facility] Medicine Outpati ent Clinics 2019-07-23 2019-07-23 [facility] [id number] 11:48:00 11:48:00 [facility] Medicine Outpati ent Clinics 2019-07-04 2019-07-04 [facility] [id number] 11:00:00 11:00:00 [facility] Medicine Outpati ent Clinics 2019-06-16 2019-06-16 Outpatient [facility] quinnmarcelloFrances [id number] [facility] 14:52:00 14:52:[address] [facility] Outpati ent Clinics 2019-06-05 2019-06-05 [facility] [id number] 12:07:00 12:07:00 [facility] Medicine Outpati ent Clinics 2019-04-23 2019-04-23 [facility] [place] [id number] 09:47:00 09:47:00 [facility] Medicine Outpati ent Clinics 2019-04-15 2019-04-15 [facility] [id number] 13:00:00 13:00:00 [facility] Medicine Outpati ent Clinics Results This patient has no known results.
--- OUTSIDE RECORDS SUMMARY | 2020-06-16 18:41 | XMS REPORT ---
[...] R60.9 Active Problem Mastalgia N64.4 Active Problem medical terminologist current use of insulin Z79.4 Active Problem [...] Date Status Dosage System Date Atul [facility] [id number] 100 UNIT/ML Active 45 units SoloStar Subcutaneous Once daily Results No Known Results Summary Purpose eClinicalWorks Submission
[2020-06-16 19:46] LABS: Absolute Lymphocytes (CBC) 1.7 K/uL (0.7-4.9); Hematocrit 36.6 % (36.0-45.0); Lymphocytes % 20.9 % (15.3-44.8); MPV 9.8 fL (7.6-11.3); RBC Red Blood Cell Count 4.02 M/uL (3.86-4.86)
[2020-06-16 19:48] LABS: Protime INR 1.03
[2020-06-16 20:06] LABS: ALT/SGPT 40 U/L (12-78); AST/SGOT 32 U/L (15-37); Alkaline Phosphatase 85 U/L (45-117); BUN Blood Urea Nitrogen 23 mg/dL (7-18); Bicarbonate 23 mmol/L (21-32); Bilirubin Direct 0.1 mg/dL (0-0.2); Bilirubin Total 0.4 mg/dL (0.2-1.0); Glucose Level 154 mg/dL (74-106); Magnesium 1.7 mg/dL (1.8-2.4); NT PRO-BNP 209 pg/mL (<125); Potassium 4.6 mmol/L (3.5-5.1); Protein, Total 7.7 g/dL (6.4-8.2); Sodium Level 137 mmol/L (136-145); Troponin (Emerg Dept Use Only) < 0.02 ng/mL (0.0-0.045)
--- NOTE | 2020-06-16 20:18 | RAD REPORT ---
EXAM DESCRIPTION: RAD - Chest Single View - 06/16/2020 7:23 pm CLINICAL HISTORY: Chest pain;SOB Chest pain. COMPARISON: Chest Single View dated 10/13/2018; CHEST SINGLE VIEW dated 08/29/2012; CHEST PA AND LAT 2 VIEW dated 02/05/2008 FINDINGS: Portable technique limits examination quality. The lungs are grossly clear. The heart is normal in size. No displaced fractures. IMPRESSION: No acute intrathoracic process suspected.
--- NOTE | 2020-06-16 21:13 | EDPHYS ---
Physician Documentation [facility] Name: Annie Zuñiga Age: 70 yrs Sex: Female : 1950 Arrival Date: 06/16/2020 Time: 18:40 Bed 16 Private MD: ED Physician Erick Fowler HPI: 06/16 19:25 This 70 yrs old Female presents to ER via Ambulatory with complaints of Chest mh7 Pain, Breathing Difficulty. 19:25 The patient or guardian reports chest pain that is located primarily in the anterior mh7 chest wall, left. Onset: today. The pain does not radiate. Associated signs and symptoms: Pertinent positives: shortness of breath, Pertinent negatives: abdominal pain, cough, diaphoresis, dizziness, headache, lower extremity pain, lower extremity swelling, lightheadedness, nausea, near syncope, palpitations, recent travel, syncope, vomiting. The chest pain is described as sharp. Duration: The patient or guardian reports multiple episodes, that are intermittent, that wax and wane. Modifying factors: The symptoms are alleviated by nothing. the symptoms are aggravated by laying down. Severity of pain: At its worst the pain was moderate today, in the emergency department the pain has improved markedly. Historical: - Allergies: 18:45 PENICILLINS; jd3 - PMHx: 18:45 Gout; kidney failure; Hypertension; Diabetes - NIDDM; Thyroid problem; High Cholesterol;jd3 - PSHx: 18:45 Hysterectomy; Tonsillectomy; jd3 - Immunization history:: Adult Immunizations up to date. - Social history:: Smoking status: Patient denies any tobacco usage or history of. ROS: 19:25 Constitutional: Negative for fever, chills, and weight loss, Eyes: Negative for injury, mh7 pain, redness, and discharge, ENT: Negative for injury, pain, and discharge, Neck: Negative for injury, pain, and swelling, Abdomen/GI: Negative for abdominal pain, nausea, vomiting, diarrhea, and constipation, Back: Negative for injury and pain, : Negative for injury, bleeding, discharge, and swelling, MS/Extremity: Negative for injury and deformity, Skin: Negative for injury, rash, and discoloration, Neuro: Negative for headache, weakness, numbness, tingling, and seizure, Psych: Negative for depression, anxiety, suicide ideation, homicidal ideation, and hallucinations, Allergy/Immunology: Negative for hives, rash, and allergies, Endocrine: Negative for neck swelling, polydipsia, polyuria, polyphagia, and marked weight changes, Hematologic/Lymphatic: Negative for swollen nodes, abnormal bleeding, and unusual bruising. Exam: 19:25 Constitutional: This is a well developed, well nourished patient who is awake, alert, mh7 and in no acute distress. Head/Face: Normocephalic, atraumatic. Eyes: Pupils equal round and reactive to light, extra-ocular motions intact. Lids and lashes normal. Conjunctiva and sclera are non-icteric and not injected. Cornea within normal limits. Periorbital areas with no swelling, redness, or edema. Neck: Trachea midline, no thyromegaly or masses palpated, and no cervical lymphadenopathy. Supple, full range of motion without nuchal rigidity, or vertebral point tenderness. No Meningismus. Chest/axilla: Normal chest wall appearance and motion. Nontender with no deformity. No lesions are appreciated. Cardiovascular: Regular rate and rhythm with a normal S1 and S2. No gallops, murmurs, or rubs. Normal PMI, no JVD. No pulse deficits. Respiratory: Lungs have equal breath sounds bilaterally, clear to auscultation and percussion. No rales, rhonchi or wheezes noted. No increased work of breathing, no retractions or nasal flaring. Abdomen/GI: Soft, non-tender, with normal bowel sounds. No distension or tympany. No guarding or rebound. No evidence of tenderness throughout. Back: No spinal tenderness. No costovertebral tenderness. Full range of motion. Skin: Warm, dry with normal turgor. Normal color with no rashes, no lesions, and no evidence of cellulitis. MS/ Extremity: Pulses equal, no cyanosis. Neurovascular intact. Full, normal range of motion. Neuro: Awake and alert, GCS 15, oriented to person, place, time, and situation. Cranial nerves II-XII grossly intact. Motor strength 5/5 in all extremities. Sensory grossly intact. Cerebellar exam normal. Normal gait. Psych: Awake, alert, with orientation to person, place and time. Behavior, mood, and affect are within normal limits. 19:29 ECG was reviewed by the Attending Physician. [facility] Vital Signs: 18:45 BP 134 / 83; Pulse 70; Resp 17 S; Temp 97.8(TE); Pulse Ox 99% on R/A; Weight 81.65 kg jd3 (R); Height 5 ft. 2 in. (157.48 cm) (R); Pain 0/10; 19:50 BP 133 / 70; Pulse 67; Resp 16 S; Pulse Ox 99% on R/A; ca1 20:50 BP 134 / 69; Pulse 59; Resp 16 S; Pulse Ox 99% on R/A; ca1 21:45 BP 134 / 69; Pulse 55; Resp 16 S; Pulse Ox 99% on R/A; ca1 18:45 Body Mass Index 32.92 (81.65 kg, 157.48 cm) jd3 MDM: 19:10 Patient medically screened. [facility] 21:09 Differential diagnosis: acute myocardial infarction, acute pericarditis, anxiety, 7 coronary artery disease chest wall pain, congestive heart failure costochondritis, pericarditis, pneumonia, pneumothorax. HEART Score: History: Moderately Suspicious (1), ECG: Normal (0), Age: > or = 65 years (2), Risk Factors: 1 or 2 risk factors (1), [Hypertension] [DM] Troponin: < or = 1 x Normal Limit (0), Total Score = 4. 21:10 The patient was given aspirin in the Emergency Department. Data reviewed: vital signs, [facility] nurses notes, old medical records, lab test result(s), cardiac enzymes, CBC, electrolytes, urinalysis, EKG, radiologic studies, plain films. Data interpreted: Pulse oximetry: on room air is 99 %. Interpretation: normal. Counseling: I had a detailed discussion with the patient and/or guardian regarding: the historical points, exam findings, and any diagnostic results supporting the discharge/admit diagnosis, lab results, radiology results, the need for further work-up and treatment in the hospital. 06/16 19:12 Order name: Basic Metabolic Panel; Complete Time: 20:37 [facility] 06/16 19:12 Order name: CBC with Diff; Complete Time: 19:54 [facility] 06/16 19:12 Order name: LFT's; Complete Time: 20:37 [facility] 06/16 19:12 Order name: Magnesium; Complete Time: 20:37 [facility] 06/16 19:12 Order name: NT PRO-BNP; Complete Time: 20:37 7 06/16 19:12 Order name: PT-INR; Complete Time: 19:54 7 06/16 19:12 Order name: Troponin (emerg Dept Use Only); Complete Time: 20:37 7 06/16 19:12 Order name: XRAY Chest (1 view); Complete Time: 20:37 7 06/16 19:12 Order name: EKG; Complete Time: 19:13 7 06/16 19:12 Order name: Cardiac monitoring; Complete Time: 19:29 7 06/16 19:12 Order name: EKG - Nurse/Tech; Complete Time: 19:29 7 06/16 19:12 Order name: IV Saline Lock; Complete Time: 19:38 7 06/16 21:14 Order name: Urine Dipstick--Ancillary (enter results) tt3 06/16 19:12 Order name: Labs collected and sent; Complete Time: 19:39 7 06/16 19:12 Order name: O2 Per Protocol; Complete Time: 19:29 7 06/16 19:12 Order name: O2 Sat Monitoring; Complete Time: 19:29 7 06/16 19:12 Order name: Urine Dipstick-Ancillary (obtain specimen); Complete Time: 21:12 mh7 EC:29 Rate is 66 beats/min. Rhythm is regular, Normal Sinus Rhythm. QRS [place] is Normal. [place] mh7 interval is normal. QRS interval is normal. QT interval is normal. No Q waves. T waves are Normal. No ST changes noted. Clinical impression: Normal ECG. Administered Medications: 21:15 Drug: Aspirin Chewable Tablet 162 mg Route: PO; ca1 21:46 Follow up: Response: No adverse reaction ca1 Disposition: 06/16/20 21:12 Hospitalization ordered by Loren Varela for Observation. Preliminary diagnosis is Chest pain, unspecified. - Bed requested for Telemetry/MedSurg (observation). - Status is Observation. jd3 - Condition is Stable. - Problem is new. - Symptoms have improved. Signatures: Dispatcher [employer] EDMS Milly Brunner RN RN tl1 Jus Bustos RN RN jd3 Alicia Nair RN RN ca1 Erick Fowler MD MD mh7 Corrections: (The following items were deleted from the chart) 21:54 21:12 Hospitalization Ordered by Loren Varela MD for Observation. Preliminary tl1 diagnosis is Chest pain, unspecified. Bed requested for Telemetry/MedSurg (observation). Status is Observation. Condition is Stable. Problem is new. Symptoms have improved. mh7 22:36 21:54 06/16/2020 21:12 Hospitalization Ordered by Loren Varela MD for Observation. jd3 Preliminary diagnosis is Chest pain, unspecified. Bed requested for Telemetry/MedSurg (observation). Status is Observation. Condition is Stable. Problem is new. Symptoms have improved. tl1
--- NOTE | 2020-06-16 21:13 | ER ---
Nurse's Notes [facility] Name: Annie Zuñiga Age: 70 yrs Sex: Female : 1950 Arrival Date: 06/16/2020 Time: 18:40 Bed 16 Private MD: Diagnosis: Chest pain, unspecified Presentation: 06/16 18:43 Chief complaint: Patient states: "I am having some chest pain and shortness of breath. jd3 its bad today , but it has been going on for about a month.". Coronavirus screen: At this time, the client does not indicate any symptoms associated with coronavirus-19. Ebola Screen: Patient negative for fever greater than or equal to 101.5 degrees Fahrenheit, and additional compatible Ebola Virus Disease symptoms. Initial Sepsis Screen: Does the patient meet any 2 criteria? No. Patient's initial sepsis screen is negative. Does the patient have a suspected source of infection? No. Patient's initial sepsis screen is negative. Risk Assessment: Do you want to hurt yourself or someone else? Patient reports no desire to harm self or others. Onset of symptoms was June 16, 2020. 18:43 Method Of Arrival: Ambulatory jd3 18:43 Acuity: BONI 3 jd3 Historical: - Allergies: 18:45 PENICILLINS; jd3 - PMHx: 18:45 Gout; kidney failure; Hypertension; Diabetes - NIDDM; Thyroid problem; High Cholesterol;jd3 - PSHx: 18:45 Hysterectomy; Tonsillectomy; jd3 - Immunization history:: Adult Immunizations up to date. - Social history:: Smoking status: Patient denies any tobacco usage or history of. Screenin:50 Abuse screen: Denies threats or abuse. Denies injuries from another. Nutritional ca1 screening: No deficits noted. Tuberculosis screening: No symptoms or risk factors identified. Fall Risk IV access (20 points). Assessment: 18:50 General: Appears in no apparent distress. comfortable, Behavior is calm, cooperative, ca1 appropriate for age. Pain: Complains of pain in anterior aspect of left upper chest Pain radiates to anterior aspect of right upper chest and mid-sternal area Pain currently is 7 out of 10 on a pain scale. Pain began 2 hours ago. Is continuous, Also complains of shortness of breath. Neuro: Level of Consciousness is awake, alert, obeys commands, Oriented to person, place, time, situation. Cardiovascular: Heart tones S1 S2 present Capillary refill < 3 seconds Patient's skin is warm and dry. Cardiovascular: Rhythm is sinus rhythm. Respiratory: Airway is patent Respiratory effort is even, unlabored, Respiratory pattern is regular, symmetrical, Breath sounds are clear bilaterally. GI: Abdomen is round non-distended, Bowel sounds present X 4 quads. Abd is soft and non tender X 4 quads. : No signs and/or symptoms were reported regarding the genitourinary system. EENT: No signs and/or symptoms were reported regarding the EENT system. Derm: Skin is intact, is healthy with good turgor, Skin is pink, warm \\T\\ dry. Musculoskeletal: Circulation, motion, and sensation intact. Capillary refill < 3 seconds. 19:50 Reassessment: Patient appears in no apparent distress at this time. Patient and/or ca1 family updated on plan of care and expected duration. Pain level reassessed. Patient is alert, oriented x 3, equal unlabored respirations, skin warm/dry/pink. 20:50 Reassessment: Patient appears in no apparent distress at this time. Patient and/or ca1 family updated on plan of care and expected duration. Pain level reassessed. Patient is alert, oriented x 3, equal unlabored respirations, skin warm/dry/pink. 21:45 Reassessment: Patient appears in no apparent distress at this time. Patient and/or ca1 family updated on plan of care and expected duration. Pain level reassessed. Patient is alert, oriented x 3, equal unlabored respirations, skin warm/dry/pink. 21:59 Reassessment: Called for report, nurse will call back in 10 minutes. ca1 22:26 Reassessment: Patient appears in no apparent distress at this time. Patient and/or jd3 family updated on plan of care and expected duration. Pain level reassessed. Patient is alert, oriented x 3, equal unlabored respirations, skin warm/dry/pink. report given to Frida CABELLO. Vital Signs: 18:45 BP 134 / 83; Pulse 70; Resp 17 S; Temp 97.8(TE); Pulse Ox 99% on R/A; Weight 81.65 kg jd3 (R); Height 5 ft. 2 in. (157.48 cm) (R); Pain 0/10; 19:50 BP 133 / 70; Pulse 67; Resp 16 S; Pulse Ox 99% on R/A; ca1 20:50 BP 134 / 69; Pulse 59; Resp 16 S; Pulse Ox 99% on R/A; ca1 21:45 BP 134 / 69; Pulse 55; Resp 16 S; Pulse Ox 99% on R/A; ca1 18:45 Body Mass Index 32.92 (81.65 kg, 157.48 cm) jd3 ED Course: 18:40 Patient arrived in ED. ag5 18:44 Triage completed. jd3 18:46 Arm band placed on. jd3 18:54 Alicia Nair, RN is Primary Nurse. ca1 19:02 Erick Fowler MD is Attending Physician. mh7 19:15 X-ray(s) taken. jp3 19:22 Placed in gown. Bed in low position. Call light in reach. Side rails up X 1. Verbal jp3 reassurance given. hospital monitor on. Pulse ox on. NIBP on. 19:22 EKG done, by ED staff, reviewed by Erick Fowler MD. jp3 19:22 Patient maintains SpO2 saturation greater than 95% on room air. jp3 19:23 XRAY Chest (1 view) In Process Unspecified. EDMS 19:39 Initial lab(s) drawn, by me, sent to lab. Inserted saline lock: 20 gauge in left ca1 antecubital area, using aseptic technique. Blood collected. 21:12 Loren Varela MD is Hospitalizing Provider. mh7 21:57 No provider procedures requiring assistance completed. Patient admitted, IV remains in ca1 place. Administered Medications: 21:15 Drug: Aspirin Chewable Tablet 162 mg Route: PO; ca1 21:46 Follow up: Response: No adverse reaction ca1 Outcome: 21:12 Decision to Hospitalize by Provider. mh7 22:25 Admitted to Med/surg accompanied by tech, via wheelchair, room 230, with chart, Report jbijal called to Frida CABELLO 22:25 Condition: stable 22:25 Instructed on the need for admit, Demonstrated understanding of instructions. 22:36 Patient left the ED. jd3 Signatures: Dispatcher [employer] EDMS Jus Bustos RN RN jRufus Draper jp3 Alicia Nair RN RN ca1 Gil Vieyra ag5 Erick Fowler MD MD 7
[2020-06-16 21:21] LABS: Urine Blood NEGATIVE (NEG); Urine Glucose NEGATIVE (NEG); Urine Protein NEGATIVE (NEG); Urine pH 5.5 (5.0-7.0)
[2020-06-16] MEDS ORDERED: ASPIRIN 81 MG CHEWABLE TABLET ONE (21:26)
[2020-06-16] MEDS ORDERED: GLUCAGON 1 MG/VIAL IM PRN (22:47)
[2020-06-16] MEDS ORDERED: ONDANSETRON 4 MG/2 ML VIAL IV PRN (22:47)
[2020-06-16] MEDS ORDERED: MORPHINE 4 MG/ML SYR IV PRN (22:47)
[2020-06-16] MEDS ORDERED: D50W 25 GM/50 ML SYRINGE/VIAL IV PRN (22:47)
[2020-06-16] MEDS ORDERED: ACETAMINOPHEN 500 MG TAB PO PRN (22:47)
[2020-06-16 23:11] VITALS: O2SAT 97; BMI 32.3
--- NOTE | 2020-06-16 23:58 | P.HP ---
Certification for Inpatient Patient admitted to: Observation With expected LOS: <2 Midnights Patient will require the following post-hospital care: None Practitioner: I am a practitioner with admitting privileges, knowledge of patient current condition, hospital course, and medical plan of care. Services: Services provided to patient in accordance with Admission requirements found in Title 42 Section 412.3 of the Code of Federal Regulations <Michela Mullenshua - Last Filed: 06/16/20 23:49> Patient History Date of Service: 06/16/20 Reason for admission: Chest Pain History of Present Illness: This is a 62-year-old female with history of renal insufficiency, hypertension, [id number] diabetes, hypothyroidism, high cholesterol. Presented to the emergency room this evening for chest pain that was brief in nature. Has had a stress test about 6 years ago which was negative. Denies having heart catheterization in the past. Tonight she stated that the pain was around 6:30 a.m. lasted for about 5 min or so. Pressure in nature with shortness of breath and with radiation to the back. Patient currently chest pain free with a negative EKG and 1st troponin negative. Patient does have risk factors concerning for atherosclerotic disease which is what we were asked to admit patient for observation and chest pain rule out. Home medications list reviewed: Yes - Past Medical/Surgical History Has patient received pneumonia vaccine in the past: Yes Diabetic: Yes -: DM -: HTN -: gout -: kidney failure -: ulcer -: hypothyroidism -: hyperlipidemia -: hysterectomy -: tonsillectomy - Family History Father Notes: History of heart disease Sister -: Heart disease - Social History Smoking Status: Never smoker Smoking therapy provided: No Alcohol use: Yes CD- Drugs: No Caffeine use: No Place of Residence: Home <Gabino Mullen - Last Filed: 06/16/20 23:49> Date of Service: 06/16/20 <Loren Varela - Last Filed: 06/17/20 12:27> Allergies Penicillins Allergy (Intermediate, Verified 08/28/12 23:49) Hives/Rash Home Medications: Glimepiride 1 mg PO DAILY 10/13/18 Lovastatin 20 mg PO DAILY 10/13/18 Metoprolol Tartrate 25 mg PO DAILY 10/13/18 allopurinoL [Allopurinol] 100 mg PO DAILY 10/13/18 lisinopriL [Prinivil*] 5 mg PO DAILY 10/13/18 Aspirin [Aspirin EC 81 MG] 81 mg PO DAILY 06/16/20 Famotidine [Acid Controller] 20 mg PO DAILY 06/16/20 Insulin Glargine,Hum.rec.anlog [Lantus Solostar] 40 units SQ DAILY 06/16/20 Levothyroxine Sodium [Euthyrox] 50 mcg PO 0630 06/16/20 Sitagliptin Phosphate [Januvia*] 100 mg PO DAILY 06/16/20 Review of Systems General: Unremarkable Eyes: Unremarkable ENT: Unremarkable Respiratory: Shortness of Breath Cardiovascular: Chest Pain Gastrointestinal: Unremarkable Genitourinary: Unremarkable Musculoskeletal: Unremarkable Integumentary: Unremarkable Neurological: Unremarkable Lymphatics: Unremarkable <Gabino Mullen - Last Filed: 06/16/20 23:49> Physical Examination - Vital Signs Temperature: 97.3 F Blood Pressure: 179/82 Pulse: 64 Respirations: 16 Pulse Ox (%): 98 - Physical Exam General: Alert, In no apparent distress, Oriented x3 HEENT: Normocephalic, PERRLA, Mucous membr. moist/pink, EOMI Neck: 2+ carotid pulse no bruit, JVD not distended, No Thyromegaly Respiratory: Clear to auscultation bilaterally, Normal air movement Cardiovascular: No edema, Normal pulses, Regular rate/rhythm, Normal S1 S2, No gallops, No rubs, No murmurs Capillary refill: <2 Seconds Gastrointestinal: Normal bowel sounds, Soft and benign, Non-distended, No ascites, No tenderness, No masses, No rebound, No guarding Musculoskeletal: No clubbing, No swelling, No contractures, No erythema, No tenderness, No warmth Integumentary: No rashes, No breakdown, No significant lesion, No tend erness/swelling, No erythema, No warmth, No cyanosis Neurological: Normal speech, Normal strength at 5/5 x4 extr, Normal tone, Sensation intact, Cranial nerves 3-12 intact, Normal reflexes 2+, Normal affect Lymphatics: No axilla or inguinal lymphadenopathy - Studies Laboratory Data (last 24 hrs) 06/16/20 19:35: PT 12.2, INR 1.03 06/16/20 19:35: WBC 8.0, Hgb 12.8, Hct 36.6, Plt Count 213 06/16/20 19:35: Sodium 137, Potassium 4.6, BUN 23 H, Creatinine 1.74 H, Glucose 154 H, Magnesium 1.7 L, Total Bilirubin 0.4, AST 32, ALT 40, Alkaline Phosphatase 85 <Gabino Mullen - Last Filed: 06/16/20 23:49> - Studies Laboratory Data (last 24 hrs) 06/16/20 19:35: PT 12.2, INR 1.03 06/16/20 19:35: WBC 8.0, Hgb 12.8, Hct 36.6, Plt Count 213 06/16/20 19:35: Sodium 137, Potassium 4.6, BUN 23 H, Creatinine 1.74 H, Glucose 154 H, Magnesium 1.7 L, Total Bilirubin 0.4, AST 32, ALT 40, Alkaline Phosphatase 85 <Loren Varela - Last Filed: 06/17/20 12:27> Assessment and Plan - Problems (Diagnosis) (1) Chest pain Current Visit: Yes Status: Acute Plan: Patient will have serial troponins run to the next several hr. Patient will have EKGs is necessary. Cardiology will be consulted for the chest pain that patient had today since she has moderate risk factors present. Patient will remain on telemetry for heart rate monitoring. Patient was given pain medicine as needed for pain and will be started on aspirin Qualifiers: Chest pain type: unspecified Qualified Code(s): R07.9 - Chest pain, unspecified (2) Diabetes Current Visit: Yes Status: Chronic Plan: Blood sugars will be monitored throughout the hospital visit and was put on a sliding scale. Patient will be put on a ADA diet. 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 Will be given blood pressure medicine as necessary to control systolic and or diastolic pressure. Qualifiers: Hypertension type: essential hypertension Qualified Code(s): I10 - Essential (primary) hypertension Discharge Plan: Home Plan to discharge in: 24 Hours - Advance Directives Does patient have a Living Will: No Does patient have a Durable POA for Healthcare: No - Code Status/Comfort Care Code Status Assessed: Yes Code Status: Full Code Critical Care: No Time Spent Managing Pts Care (In Minutes): 60 <Gabino Mullen - Last Filed: 06/16/20 23:49> Date of Service: 06/17/20 Chart reviewed and events noted. Agree with the above findings. Patient was admitted to the hospital with chest pain. Will rule the patient out for acute coronary syndrome and get a cardiology consultation. <Loren Varela - Last Filed: 06/17/20 12:27>
[2020-06-17 04:13] LABS: Absolute Lymphocytes (CBC) 2.4 K/uL (0.7-4.9); Basophils % 1.1 % (0-1.3); Hematocrit 34.6 % (36.0-45.0); Lymphocytes % 32.7 % (15.3-44.8); MPV 9.6 fL (7.6-11.3); RBC Red Blood Cell Count 3.79 M/uL (3.86-4.86)
[2020-06-17 04:35] LABS: BUN Blood Urea Nitrogen 21 mg/dL (7-18); Bicarbonate 25 mmol/L (21-32); Glucose Level 90 mg/dL (74-106); Potassium 4.6 mmol/L (3.5-5.1); Sodium Level 140 mmol/L (136-145); Troponin I < 0.02 ng/mL (0.0-0.045)
[2020-06-17] MEDS: INSULIN -REGULAR HUMAN 50 UNIT/0.5 ML ML SQ SCH ×2 (07:30→12:18)
--- NOTE | 2020-06-17 07:33 | EKG ---
Test Date: 2020-06-16 Test Time: 19:22:46 It Project Manager: SANDRA MEASUREMENT RESULTS: Intervals: Rate: 66 [place]: 170 QRSD: 90 QT: 400 QTc: 419 Momence: P: 41 NY: 170 QRS: 42 T: 62 INTERPRETIVE STATEMENTS: Normal sinus rhythm Normal ECG Compared to ECG 10/13/2018 17:52:52 No significant changes Electronically Signed On 06-17-20 07:32:22 DESK ATTENDANT by Sami Ruiz
[2020-06-17] MEDS ORDERED: ASPIRIN EC 81 MG TAB PO SCH (09:00)
[2020-06-17 10:32] VITALS: BP 137/73; TEMP 97.4
[2020-06-17] MEDS ORDERED: MORPHINE 2 MG/ML SYR IV PRN (10:34)
--- NOTE | 2020-06-17 12:09 | CON ---
Date of Consultation: 06/17/[address] Gonsales on 06/16/2020. I saw the patient on 06/17/2020. Reason For Consultation: Chest pain. History Of Present Illness: Ms. Zuñiga is a 70-year-old white woman. Had similar symptoms in October 12 and had a normal echo and a normal stress test then. She has a history of chronic renal disease, hypertension, diabetes, dyslipidemia, and gout. Her creatinine is 1.84. She had come in and alread y ruled out for an FL. Chest x-ray is negative. EKG is negative. Labs are negative. She complaine d of sharp chest pain that has been going on for 2 months. Yesterday, it lasted longer and was assoc iated with shortness of breath, but no nausea, vomiting, diaphoresis, PND, orthopnea, pedal edema, pa lpitation, or syncope. Past Medical History: As stated above. Allergies: SHE IS ALLERGIC TO PENICILLIN. Review of Systems: Negative. Social History: Negative. Family History: Negative. Medications: At home include metoprolol and allopurinol. She is also on aspirin, Synthroid, insulin , and glimepiride. Physical Examination: Vital Signs: Stable. She was afebrile. HEENT: Negative. Neck: Supple without any bruit, lymphadenopathy, JVD, or thyromegaly. Chest: Clear to auscultation and percussion. Cardiac: Revealed a regular rhythm and rate. No murmurs, gallops, or rubs. Abdomen: Benign. Extremities: Revealed no clubbing, cyanosis, or edema. Diagnostic Data: Normal except for creatinine of 1.48. Impression And Plan: Atypical chest pain, sharp, stabbing, ongoing for 2 months with normal EKG, leon[facility] x-ray, and labs. I am comfortable with her going home and have an outpatient echocardiogram and a n MPI and I will make an arrangement for that. Her other problems including gout which is stable, ch ronic renal disease which is stable. She has hypertension that is well controlled, diabetes that is well controlled, and dyslipidemia that is well controlled. The patient can go home today. BYRON/MARIA LUISA Voice ID: [id number] Report ID: [id number]
--- NOTE | 2020-06-17 12:35 | P.DS ---
Discharge Date: 06/17/20 Disposition: ROUTINE DISCHARGE Discharge Condition: GOOD Reason for Admission: Chest Pain Consultations: Cardiology Brief History of Present Illness: Patient is a 62-year-old female who came into the hospital with chest discomfort. Patient has some pain in the sternal region. Patient came to the ER for further evaluation. In the emergency room, troponins and EKG were negative. Patient will be admitted to the hospital for further evaluation. Hospital Course: Patient has serial troponins and EKG which were negative. Patient was seen by Cardiology and decision was made to to follow up as an outpatient. At this time, plan is to discharge patient for outpatient follow-up with Cardiology. Vital Signs/Physical Exam: Temp Pulse Resp BP Pulse Ox 97.4 F 65 18 137/73 98 06/17/20 08:00 06/17/20 08:00 06/17/20 08:00 06/17/20 08:00 06/17/20 08:00 General: Alert, In no apparent distress, Oriented x3 Laboratory Data at Discharge: WBC 7.4 K/uL (4.3-10.9) 06/17/20 03:55 Hgb 12.2 g/dL (12.0-15.0) 06/17/20 03:55 Hct 34.6 % (36.0-45.0) L 06/17/20 03:55 Plt Count 184 K/uL (152-406) 06/17/20 03:55 PT 12.2 SECONDS (9.5-12.5) 06/16/20 19:35 INR 1.03 06/16/20 19:35 Sodium 140 mmol/L (136-145) 06/17/20 03:55 Potassium 4.6 mmol/L (3.5-5.1) 06/17/20 03:55 BUN 21 mg/dL (7-18) H 06/17/20 03:55 Creatinine 1.48 mg/dL (0.55-1.3) H 06/17/20 03:55 Glucose 90 mg/dL (74-106) 06/17/20 03:55 Magnesium 1.7 mg/dL (1.8-2.4) L 06/16/20 19:35 Total Bilirubin 0.4 mg/dL (0.2-1.0) 06/16/20 19:35 AST 32 U/L (15-37) 06/16/20 19:35 ALT 40 U/L (12-78) 06/16/20 19:35 Alkaline Phosphatase 85 U/L (45-117) 06/16/20 19:35 Troponin I < 0.02 ng/mL (0.0-0.045) 06/17/20 03:55 Home Medications: Glimepiride 1 mg PO DAILY 10/13/18 Lovastatin 20 mg PO DAILY 10/13/18 Metoprolol Tartrate 25 mg PO DAILY 10/13/18 allopurinoL [Allopurinol] 100 mg PO DAILY 10/13/18 lisinopriL [Prinivil*] 5 mg PO DAILY 10/13/18 Aspirin [Aspirin EC 81 MG] 81 mg PO DAILY 06/16/20 Famotidine [Acid Controller] 20 mg PO DAILY 06/16/20 Insulin Glargine,Hum.rec.anlog [Lantus Solostar] 40 units SQ DAILY 06/16/20 Levothyroxine Sodium [Euthyrox] 50 mcg PO 30 06/16/20 Sitagliptin Phosphate [Januvia*] 100 mg PO DAILY 06/16/20 Patient Discharge Instructions: OK TO DC IV AND DC HOME. FOLLOW-UP WITH PRIMARY CARE PROVIDER IN 1-2 WEEKS. FOLLOW-UP WITH CARDIOLOGY IN 1-2 WEEKS. RETURN TO THE ER IF symptoms worsen. CALL or TEXT DR. BARNES AT [phone] IF ANY QUESTIONS REGARDING HOSPITAL STAY. PLEASE CALL THE FLOOR AT [phone] IF ANY MEDICATION OR NURSING QUESTIONS. Diet: AHA Activity: Fall precautions Followup: Unknown,U [Primary Care Provider] - Time spent managing pt's care (in minutes): 35
== END 2020-06-17 13:30 | disposition home or self-care (01) ==
LOC: ER 18:37 → ERHOLD 21:39 → 2ND 22:19
PROVIDERS: ADMIT Hospitalist; ATTEND Hospitalist
DX: R07.89 Other chest pain (principal); E11.22 Type 2 diabetes mellitus with diabetic chronic kidney disease; I12.9 Hypertensive chronic kidney disease with stage 1 through stage 4 chronic kidney disease, or unspecified chronic kidney disease; Z20.828 Contact with and (suspected) exposure to other viral communicable diseases; N18.9 Chronic kidney disease, unspecified; E78.5 Hyperlipidemia, unspecified; M10.9 Gout, unspecified; Z79.4 Long term (current) use of insulin; Z79.82 Long term (current) use of aspirin; E03.9 Hypothyroidism, unspecified; E78.00 Pure hypercholesterolemia, unspecified
CPT/HCPCS: 93005 ×2; 85025 ×2; 80048 ×2; 36415 ×2; 83735; 85610; 82947 ×2; 80076; 81003; 84484 ×3; 83880; 71045; 99285; U0002; G0378 ×2

== ENCOUNTER 2020-10-24 16:24 | Emergency (ER) | payer MEDICARE ==
--- OUTSIDE RECORDS SUMMARY | 2020-10-24 16:27 | XMS REPORT | Continuity of Care Document ---
:1950 Author Organization [facility] t Address [address] [place] [address] Care Team Providers Name Role Phone Unavailable Unavailable Unavailable Problems This patient has no known problems. Allergies, Adverse Reactions, Alerts Allergy Allergy Status Severity Reaction(s) Onset Inactive Treating Comm ents Source Name Type Date Date Clinician penicill Adverse Active Info Not [facility] Medications Ordered Filled Start Stop Current Ordering Indication Dosage Frequency Signature Comments Components Source Medication Medication Date Date Medication? Clinician (SIG) Name Name Rishiortiz Pollard Yes Hollie [address] [facility] Procedures This patient has no known procedures. Encounters Start End Encounter Admission Attending Care Care Encounter Source Date/Time Date/Time Type Type Clinicians Facility Department ID 2020-10-14 2020-10-14 Outpatient [facility] [id number] [facility] 2020-07-21 2020-07-21 Outpatient [facility] [id number] [facility] 2020-06-29 2020-06-29 Outpatient [facility] [id number] [facility] 2020-06-22 2020-06-22 Outpatient [facility] [id number] [facility] 2020-04-27 2020-04-27 [facility] [id number] [facility] 15[facility]47[facility] [place] [facility] Outpat[facility] ent Clinics 2020-04-12 2020-04-[address] [facility] [id number] 11:12:00 11:12:00 [facility] l [facility] Outpati ent Clinics 2020-04-06 2020-04-[address] [facility] [id number] [facility] 08[facility]16[facility]00 08[facility]16[facility] 2020-03-11 2020-03-11 [facility] [id number] [facility] 09[facility]40:00 09:40:00 t [facility] Medicine l Medicine Outpati ent Clinics 2020-01-16 2020-01-16 [facility] [id number] [facility] 15:20:00 15:20:00 t [facility] Medicine l Medicine Outpati ent Clinics 2019-11-27 2019-11-27 [facility] [id number] [address] 10:51:00 10:51:00 t [facility] Medicine l Medicine Outpati ent Clinics 2019-11-20 2019-11-20 [facility] [id number] [address] 08:43:00 08:43:00 t [facility] Medicine l Medicine Outpati ent Clinics 2019-11-18 2019-11-18 [facility] [id number] 14:00:00 14:00:00 t [facility] Medicine l Medicine Outpati ent Clinics 2019-11-18 2019-11-18 [facility] [id number] 10:06:00 10:06:00 t [facility] Medicine l Medicine Outpati ent Clinics 2019-10-28 2019-10-28 [facility] [id number] 16:14:00 16:14:00 t [facility] Medicine Medicine Outpati ent Clinics 2019-10-26 2019-10-26 [facility] [id number] 23:58:00 23:58:00 t [facility] l Medicine Outpati ent Clinics 2019-10-23 2019-10-23 [facility] [id number] [address] 08:30:00 08:30:00 t [facility] Medicine l Medicine Outpati ent Clinics 2019-09-07 2019-09-07 [facility] [id number] [address] 02:09:00 02:09:00 t [facility] l Medicine Outpati ent Clinics 2019-09-04 2019-09-04 [facility] [id number] 08:39:00 08:39:00 t [facility] Medicine l Medicine Outpati ent Clinics 2019-09-03 2019-09-03 [facility] [id number] 15:00:00 15:00:00 t [facility] Medicine Medicine Outpati ent Clinics 2019-08-05 2019-08-05 [facility] [id number] [address] 08:20:00 08:20:00 t [facility] Medicine Medicine Outpati ent Clinics 2019-07-23 2019-07-23 [facility] [id number] 11:48:00 11:48:00 t [facility] Medicine Medicine Outpati ent Clinics 2019-07-04 2019-07-04 [facility] [id number] 11:00:00 11:00:00 [facility] Medicine Medicine Outpati ent Clinics 2019-06-16 2019-06-16 Outpatient Porfirio Monroy [id number] [facility] 14[facility]:00 14:52:00 Tamy Morelos [facility] ent Clinics 2019-06-05 2019-06-05 Outpatient Buddy Cuevas [id number] [facility] 12:07:00 12:07:00 [facility] ent Clinics 2019-04-23 2019-04-23 Outpatient Buddy Cuevas [id number] 09:47:00 09:47:00 [facility] 2019-04-15 2019-04-15 Outpatient Buddy Cuevas [id number] 13:00:00 13:00:00 [facility] ent Clinics Results This patient has no known results.
[2020-10-24] MEDS ORDERED: NA CHLORIDE 0.9% 1,000 ML ONE (19:44)
[2020-10-24] MEDS ORDERED: ONDANSETRON 4 MG/2 ML VIAL ONE (19:44)
[2020-10-24 19:53] LABS: Absolute Lymphocytes (CBC) 3.4 K/uL (0.7-4.9); Basophils % 0.3 % (0-1.3); Hematocrit 37.4 % (36.0-45.0); Lymphocytes % 12.9 % (15.3-44.8); MPV 9.3 fL (7.6-11.3); RBC Red Blood Cell Count 4.11 M/uL (3.86-4.86)
[2020-10-24 20:11] LABS: Albumin 3.8 g/dL (3.4-5.0); Bilirubin Direct 0.1 mg/dL (0-0.2); Bilirubin Total 0.4 mg/dL (0.2-1.0); Potassium 4.5 mmol/L (3.5-5.1)
[2020-10-24 20:57] LABS: Blood Morphology Comment NOT SEEN (NOT SEEN); Platelet Estimate ADEQ
--- NOTE | 2020-10-24 21:02 | RAD REPORT ---
EXAM DESCRIPTION: CT - Abdomen Pelvis Wo Contrast - 10/24/2020 8:43 pm CLINICAL HISTORY: ABD PAIN COMPARISON: No comparisonsCT-STONE PROTOCOL dated 12/19/2008 TECHNIQUE: Axial [address] imaging of the abdomen and pelvis was performed without IV contrast. No IV contrast was given because of allergy, abnormal renal function, patient refusal or physician re quest. No oral contrast administered. All CT scans are performed using dose optimization technique as appropriate and may include automated exposure control or mA/KV adjustment according to patient size. FINDINGS: No suspicious findings in the lung bases. The liver, spleen and pancreas show no focal findings on non-contrast imaging. Liver shows fatty infi ltration. No gallbladder or biliary tree abnormality. Gallstones can be occult on CT imaging. No hydronephrosis or suspicious renal mass. No obstructing or nonobstructing calculi identified. No s ignificant adrenal finding. Isodense renal masses and pyelonephritis cannot be excluded in the absenc e of IV contrast. Well filled urinary bladder shows no acute finding. Uterus is absent. Ovaries are a bsent or atrophic. No gastric dilatation or gastric wall thickening. Distended proximal small bowel loops noted. Distal small bowel loops are normal diameter. No abrupt transition. Small bowel loops are fluid-filled. Righ t-side fluid filled nondilated colon present. Appendicitis is not suspected. No free air, free fluid or inflammatory stranding. No hernia, mass or bulky lymphadenopathy. No suspicious bony findings. IMPRESSION: Proximal small bowel loops are prominent suggesting ileus or gastroenteritis. No bowel o bstruction at this time. No free air, abscess or surgically emergent finding. Fatty infiltration of the liver. Full assessment is limited is the absence of IV contrast.
--- NOTE | 2020-10-24 21:10 | EDPHYS ---
Physician Documentation [facility] Name: Annie Zuñiga Age: 70 yrs Sex: Female : 1950 Arrival Date: 10/24/2020 Time: 16:26 Bed 24 Private MD: GUS Physician Hernandez Smith HPI: 10/24 20:50 This 70 yrs old Female presents to ER via Ambulatory with complaints of kb Vomiting/Diarrhea. 20:50 The patient presents to the emergency department with nausea, vomiting, diarrhea. kb Onset: The symptoms/episode began/occurred 6 day(s) ago. Possible causes: bad food exposure. The symptoms are aggravated by nothing. The symptoms are alleviated by nothing. Associated signs and symptoms: Pertinent positives: abdominal pain, diarrhea, nausea, vomiting. Severity of symptoms: At their worst the symptoms were moderate in the emergency department the symptoms are unchanged. The patient has not experienced similar symptoms in the past. The patient has not recently seen a physician. Pt reports n/v/d and abd cramping since Sunday after eating syrian food. Denies fever. . Historical: - Allergies: 16:45 PENICILLINS; ll1 - PMHx: 16:45 Diabetes - NIDDM; High Cholesterol; kidney failure; Thyroid problem; ULCER; ll1 Hypertension; Gout; - PSHx: 16:45 Hysterectomy; Tonsillectomy; ll1 - Immunization history:: Flu vaccine is up to date. - Social history:: Smoking status: Patient denies any tobacco usage or history of. ROS: 20:50 Constitutional: Negative for fever, chills, and weight loss, Cardiovascular: Negative kb for chest pain, palpitations, and edema, Respiratory: Negative for shortness of breath, cough, wheezing, and pleuritic chest pain, MS/Extremity: Negative for injury and deformity, Skin: Negative for injury, rash, and discoloration, Neuro: Negative for headache, weakness, numbness, tingling, and seizure. 20:50 Abdomen/GI: Positive for nausea, vomiting, and diarrhea, abdominal cramps. Exam: 20:50 Constitutional: This is a well developed, well nourished patient who is awake, alert, kb and in no acute distress. Head/Face: Normocephalic, atraumatic. Chest/axilla: Normal chest wall appearance and motion. Cardiovascular: Regular rate and rhythm with a normal S1 and S2. No gallops, murmurs, or rubs. No pulse deficits. Respiratory: Lungs have equal breath sounds bilaterally, clear to auscultation. No rales, rhonchi or wheezes noted. No increased work of breathing, no retractions or nasal flaring. Abdomen/GI: Soft, non-tender, with normal bowel sounds. No distension. No guarding or rebound. No evidence of tenderness throughout. Skin: Warm, dry with normal turgor. Normal color with no rashes, no lesions, and no evidence of cellulitis. MS/ Extremity: Pulses equal, no cyanosis. Neurovascular intact. Full, normal range of motion. Neuro: Awake and alert, GCS 15, oriented to person, place, time, and situation. Cranial nerves II-XII grossly intact. Moves all extremities. Sensory grossly intact. Cerebellar exam normal. Normal gait. Vital Signs: 16:45 BP 128 / 85; Pulse 71; Resp 17; Temp 98.3; Pulse Ox 97% ; Weight 81.65 kg; Height 5 ft. ll1 2 in. (157.48 cm); Pain 0/10; 19:12 BP 124 / 87; Pulse 64; Resp 16; Pulse Ox 100% on R/A; vg1 20:32 BP 127 / 66; Pulse 68; Resp 17; Pulse Ox 100% ; ea 21:15 BP 119 / 68; Pulse 70; Resp 18; Pulse Ox 98% ; ea 16:45 Body Mass Index 32.92 (81.65 kg, 157.48 cm) ll1 MDM: 18:20 Patient medically screened. kb 20:50 Data reviewed: vital signs, nurses notes. Data interpreted: Pulse oximetry: on room air kb is 100 %. Interpretation: normal. 21:08 Counseling: I had a detailed discussion with the patient and/or guardian regarding: the kb historical points, exam findings, and any diagnostic results supporting the discharge/admit diagnosis, lab results, radiology results, the need for outpatient follow up, a family practitioner, to return to the emergency department if symptoms worsen or persist or if there are any questions or concerns that arise at home. 10/24 17:08 Order name: Glucose, Ancillary Testing; Complete Time: 17:16 EDMS 10/24 18:20 Order name: Basic Metabolic Panel kb 10/24 18:20 Order name: CBC with Diff kb 10/24 18:20 Order name: Hepatic Function kb 10/24 18:20 Order name: Lipase kb 10/24 19:56 Order name: CBC with Automated Diff; Complete Time: 21:00 EDMS 10/24 20:12 Order name: Basic Metabolic Panel; Complete Time: 20:21 EDMS 10/24 20:12 Order name: Liver (Hepatic) Function; Complete Time: 20:21 EDMS 10/24 20:12 Order name: Lipase; Complete Time: 20:21 EDMS 10/24 20:38 Order name: Manual Differential; Complete Time: 21:00 EDMS 10/24 20:39 Order name: Abdomen ; Complete Time: 21:07 EDMS 10/24 18:20 Order name: IV Saline Lock; Complete Time: 19:41 kb 10/24 18:20 Order name: Labs collected and sent; Complete Time: 19:41 kb Administered Medications: 19:40 Drug: NS 0.9% 1000 ml Route: IV; Rate: 1000 ml; Site: right antecubital; vg1 20:32 Follow up: Response: No adverse reaction; IV Status: Completed infusion; IV Intake: ea 1000ml 19:41 Drug: Zofran (Ondansetron) 4 mg Route: IVP; Site: right antecubital; vg1 20:32 Follow up: Response: No adverse reaction ea 21:20 Drug: Cipro (ciprofloxacin) 500 mg Route: PO; ea 21:21 Follow up: Response: Medication administered at discharge. ea 21:20 Drug: Flagyl 500 mg Route: PO; ea 21:20 Follow up: Response: Medication administered at discharge. ea Disposition: 10/25 06:59 Co-signature as Attending Physician, Hernandez Smith MD I agree with the assessment and katie plan of care. Disposition: 10/24/20 21:09 Discharged to Home. Impression: Gastroenteritis. - Condition is Stable. - Discharge Instructions: Viral Gastroenteritis, Adult, [id number]. - Prescriptions for Bentyl 20 mg Oral Tablet - take 2 tablet by ORAL route every 6 hours As needed; 40 tablet. Cipro 500 mg Oral Tablet - take 1 tablet by ORAL route every 12 hours for 10 days; 20 tablet. Flagyl 500 mg Oral Tablet - take 1 tablet by ORAL route every 8 hours for 10 days; 30 tablet. Zofran 4 mg Oral Tablet - take 1 tablet by ORAL route every 6 hours As needed; 20 tablet. - Medication Reconciliation Form, Thank You Letter, Antibiotic Education, Prescription Opioid Use form. - Follow up: Emergency Department; When: As needed; Reason: Worsening of condition. Follow up: Private Physician; When: 2 - 3 days; Reason: Recheck today's complaints, Continuance of care, Re-evaluation by your physician. Signatures: Dispatcher [employer] [facility] Mary Kate Medina, TAX ACCOUNTING ASSISTANT-C TAX ACCOUNTING ASSISTANT-Hernandez Ruelas MD MD cha Antunez, Elena, RN RN Leigha Mackay, RN RN vg1 Ailyn Joseph, RN RN ll1 Corrections: (The following items were deleted from the chart) 10/24 20:39 19:57 Abdomen Pelvis W Con+CT.RAD.BRZ ordered. [facility] 21:23 21:09 10/24/2020 21:09 Discharged to Home. Impression: Gastroenteritis. Condition is ea Stable. Forms are Medication Reconciliation Form, Thank You Letter, Antibiotic Education, Prescription Opioid Use. Follow up: Emergency Department; When: As needed; Reason: Worsening of condition. Follow up: Private Physician; When: 2 - 3 days; Reason: Recheck today's complaints, Continuance of care, Re-evaluation by your physician. kb
--- NOTE | 2020-10-24 21:10 | ER ---
Nurse's Notes [facility] Name: Annie Zuñiga Age: 70 yrs Sex: Female : 1950 Arrival Date: 10/24/2020 Time: 16:26 Bed 24 Private MD: Diagnosis: Gastroenteritis Presentation: 10/24 16:45 Chief complaint: Patient states: Abd cramping with nausea and diarrhea for 10 days. No ll1 fever. States she thinks she ate bad [place]ian food. Fingerstick 140 in triage. Coronavirus screen: Client denies travel out of the [place] in the last 14 days. diarrhea, fatigue, nausea, Client presents with at least one sign or symptom that may indicate coronavirus-19. Standard/surgical mask placed on the client. Ebola Screen: Patient denies travel to an Ebola-affected area in the 21 days before illness onset. Initial Sepsis Screen: Does the patient meet any 2 criteria? No. Patient's initial sepsis screen is negative. Does the patient have a suspected source of infection? Yes: Acute abdominal pain. Risk Assessment: Do you want to hurt yourself or someone else? Patient reports no desire to harm self or others. Onset of symptoms was October 14, 2020. 16:45 Method Of Arrival: Ambulatory ll1 16:45 Acuity: BONI 3 ll1 Historical: - Allergies: 16:45 PENICILLINS; ll1 - PMHx: 16:45 Diabetes - NIDDM; High Cholesterol; kidney failure; Thyroid problem; ULCER; ll1 Hypertension; Gout; - PSHx: 16:45 Hysterectomy; Tonsillectomy; ll1 - Immunization history:: Flu vaccine is up to date. - Social history:: Smoking status: Patient denies any tobacco usage or history of. Screenin:12 Abuse screen: Denies threats or abuse. Nutritional screening: No deficits noted. vg1 Tuberculosis screening: No symptoms or risk factors identified. Fall Risk No fall in past 12 months (0 pts). No secondary diagnosis (0 pts). IV access (20 points). Ambulatory Aid- None/Bed Rest/Nurse Assist (0 pts). Gait- Normal/Bed Rest/Wheelchair (0 pts) Mental Status- Oriented to own ability (0 pts). Total Duvall Fall Scale indicates No Risk (0-24 pts). Assessment: 19:10 General: Appears in no apparent distress. comfortable, Behavior is calm, cooperative. vg1 Pain: Complains of pain in abdomen Pain currently is 5 out of 10 on a pain scale. Pain began Sunday10/19/20. Neuro: Level of Consciousness is awake, alert, obeys commands, Oriented to person, place, time, situation. Cardiovascular: Patient's skin is warm and dry. Respiratory: Airway is patent Respiratory effort is even, unlabored. GI: Abdomen is flat, Bowel sounds present X 4 quads. GI: Reports diarrhea, nausea. : No signs and/or symptoms were reported regarding the genitourinary system. EENT: No signs and/or symptoms were reported regarding the EENT system. Derm: Skin is intact, Skin is pink, warm \T\ dry. Musculoskeletal: Circulation, motion, and sensation intact. 20:32 Reassessment: Patient and/or family updated on plan of care and expected duration. Pain ea level reassessed. Patient is alert, oriented x 3, equal unlabored respirations, skin warm/dry/pink. Patient states feeling better. 21:22 Reassessment: Patient and/or family updated on plan of care and expected duration. Pain ea level reassessed. Patient is alert, oriented x 3, equal unlabored respirations, skin warm/dry/pink. Discharge instruction given to patient verbalized the understanding of instruction. Pt left ED ambulatory tolerating well. Patient states feeling better. Vital Signs: 16:45 BP 128 / 85; Pulse 71; Resp 17; Temp 98.3; Pulse Ox 97% ; Weight 81.65 kg; Height 5 ft. ll1 2 in. (157.48 cm); Pain 0/10; 19:12 BP 124 / 87; Pulse 64; Resp 16; Pulse Ox 100% on R/A; vg1 20:32 BP 127 / 66; Pulse 68; Resp 17; Pulse Ox 100% ; ea 21:15 BP 119 / 68; Pulse 70; Resp 18; Pulse Ox 98% ; ea 16:45 Body Mass Index 32.92 (81.65 kg, 157.48 cm) ll1 ED Course: 16:26 Patient arrived in ED. mr 16:45 Arm band placed on. ll1 16:48 Triage completed. ll1 16:50 Mary Kate Medina FNP-C [facility]. kb 16:50 Hernandez Smith MD is Attending Physician. kb 19:10 Leigha Day, RN is Primary Nurse. vg1 19:12 Patient has correct armband on for positive identification. Bed in low position. Call vg1 light in reach. Side rails up X 1. 19:41 Initial lab(s) drawn, by me, sent to lab. Inserted saline lock: 20 gauge in right vg1 antecubital area, using aseptic technique. Blood collected. 20:42 Abdomen In Process Unspecified. EDMS 21:21 No provider procedures requiring assistance completed. IV discontinued, intact, ea bleeding controlled, No redness/swelling at site. Pressure dressing applied. Administered Medications: 19:40 Drug: NS 0.9% 1000 ml Route: IV; Rate: 1000 ml; Site: right antecubital; vg1 20:32 Follow up: Response: No adverse reaction; IV Status: Completed infusion; IV Intake: ea 1000ml 19:41 Drug: Zofran (Ondansetron) 4 mg Route: IVP; Site: right antecubital; vg1 20:32 Follow up: Response: No adverse reaction ea 21:20 Drug: Cipro (ciprofloxacin) 500 mg Route: PO; ea 21:21 Follow up: Response: Medication administered at discharge. ea 21:20 Drug: Flagyl 500 mg Route: PO; ea 21:20 Follow up: Response: Medication administered at discharge. ea Intake: 20:32 IV: 1000ml; Total: 1000ml. ea Outcome: 21:09 Discharge ordered by . kb 21:21 Discharged to home ambulatory. ea 21:21 Condition: stable 21:21 Discharge instructions given to patient, Instructed on discharge instructions, follow up and referral plans. medication usage, Demonstrated understanding of instructions, follow-up care, medications, Prescriptions given X 4. 21:23 Patient left the ED. ea Signatures: Dispatcher [employer] EDMS Mary Kate Medina, MOHINDER ESPOSITOP-Chaim Libia PettyMerissa quinn RN Leigha Cuello ea, IRINEO CABELLO 1 Ailyn Joseph RN RN ll1 Corrections: (The following items were deleted from the chart) 16:57 16:45 Chief complaint: Patient states: Abd cramping with nausea and diarrhea for 10 ll1 days. No fever. States she thinks she ate bad [place]ian food. ll1
[2020-10-24] MEDS ORDERED: CIPROFLOXACIN HCL 500 MG TAB ONE (21:31)
[2020-10-24] MEDS ORDERED: metroNIDAZOLE 500 MG TABLET ONE (21:33)
[2020-10-25 17:00] VITALS: TEMP 98.3
[2020-10-25 17:04] VITALS: BP 119/68; O2SAT 98
== END 2020-10-24 21:23 | disposition home or self-care (01) ==
LOC: ER 16:24
DX: K52.9 Noninfective gastroenteritis and colitis, unspecified (principal); I10 Essential (primary) hypertension; Z88.0 Allergy status to penicillin
CPT/HCPCS: 85025; 80048; 36415; 82947; 80076; 83690; 74176; J7030; J2405; 96361; 96374; 99284

== ENCOUNTER 2021-03-13 15:45 | Emergency (ER) | payer MEDICARE ==
--- OUTSIDE RECORDS SUMMARY | 2021-03-13 15:48 | XMS REPORT | Continuity of Care Document ---
:1950 Author Organization [facility] t Address [address] [place] [address] Care Team Providers Name Role Phone Unavailable [...] Date/Time Type Type Clinicians Facility Department ID 2021-03-01 2021-03-01 Outpatient [facility] [id number] [facility] 2020-12-13 2020-12-13 Outpatient [facility] [id number] [facility] 2020-11-21 2020-11-21 Outpatient [facility] [id number] [facility] 2020-11-08 2020-11-08 Outpatient [facility] [id number] [facility] 2020-10-14 2020-10-14 [facility] [id number] 2020-07-21 2020-07-21 [facility] [id number] [facility] 2020-06-29 2020-06-29 [facility] [id number] [facility] 2020-06-22 2020-06-22 [facility] [id number] [facility] 2020-04-27 2020-04-27 [facility] [id number] [facility] 15[facility]47[facility]00 15:47:00 [facility] 2020-04-12 2020-04-12 Outpatient [facility] [id number] [facility] 11:12:00 11:12:00 [facility] Clinics 2020-04-06 2020-04-06 Outpatient [facility] [id number] [address] 08:16:00 08:16:00 [facility] [place] 2020-03-11 2020-03-11 [facility] [id number] 09:40:00 09:40:00 [facility] l Medicine Outpati ent Clinics 2020-01-16 2020-01-16 [facility] [id number] 15:20:00 15:20:[address] [facility] Medicine l Medicine Outpati ent Clinics 2019-11-27 2019-11-27 [facility] [id number] 10:51:00 10:51:00 t [facility] Medicine Outpati ent Clinics 2019-11-20 2019-11-20 [facility] [id number] 08:43:00 08:43:00 t [facility] Medicine Outpati ent Clinics 2019-11-18 2019-11-18 [facility] [id number] 14:00:00 14:00:00 [facility] Medicine Outpati ent Clinics 2019-11-18 2019-11-18 [facility] [id number] [address] 10:06:00 10:06:00 [facility] Medicine Outpati ent Clinics 2019-10-28 2019-10-28 [facility] [id number] 16:14:00 16:14:00 [facility] Medicine Outpati ent Clinics 2019-10-26 2019-10-26 [facility] [id number] [address] 23:58:00 23:58:00 [facility] Medicine Outpati ent Clinics 2019-10-23 2019-10-23 [facility] [id number] 08[facility]30:00 08:30:00 [facility] Medicine Outpati ent Clinics 2019-09-07 2019-09-07 [facility] [id number] 02:09:00 02:09:00 [facility] Medicine Outpati ent Clinics 2019-09-04 2019-09-04 [facility] [id number] 08:39:00 08:39:00 [facility] Medicine Outpati ent Clinics 2019-09-03 2019-09-03 [facility] [id number] 15:00:00 15:00:00 [facility] Medicine Outpati ent Clinics 2019-08-05 2019-08-05 [facility] [id number] 08:20:00 08:20:00 [facility] Medicine Outpati ent Clinics 2019-07-23 2019-07-23 [facility] [id number] [address] 11:48:00 11:48:00 [facility] Medicine Outpati ent Clinics 2019-07-04 2019-07-04 [facility] [id number] [address] 11:00:00 11:00:00 [facility] Medicine Outpati ent Clinics 2019-06-16 2019-06-16 Outpatient [facility] quinn[facility]arc[facility] [id number] [facility] 14:[facility]:00 14:52:00 Tamy Morelos [facility] Outpat[facility] Clin[facility] 2019-06-05 2019-06-05 Outpatient Buddy Goodwint [id number] [facility] 12:07:00 12:07:00 [facility] Medicine Outpati ent Clinics 2019-04-23 2019-04-23 [facility] [id number] [facility] 09:47:00 09:47:00 [facility] Medicine Outpati ent Clinics 2019-04-15 2019-04-15 [facility] [id number] [facility] 13:00:00 13:00:00 [facility] Medicine Outpati ent Clinics Results This patient has no known results.
--- NOTE | 2021-03-13 17:31 | ER ---
Nurse's Notes [facility] Name: Annie Zuñiga Age: 70 yrs Sex: Female : 1950 Arrival Date: 03/13/2021 Time: 15:48 Bed Waiting Private MD: Diagnosis: Presentation: 03/13 16:05 Chief complaint: Patient states: R sided LION since 10 am. States her R hand feel numb. ll1 States she has a history of migraines and it always affects her R side. No fever. Blood sugar was good this morning. Coronavirus screen: Client denies travel out of the [place] in the last 14 days. At this time, the client does not indicate any symptoms associated with coronavirus-19. Ebola Screen: Patient denies travel to an Ebola-affected area in the 21 days before illness onset. Initial Sepsis Screen: Does the patient meet any 2 criteria? No. Patient's initial sepsis screen is negative. Does the patient have a suspected source of infection? No. Patient's initial sepsis screen is negative. Risk Assessment: Do you want to hurt yourself or someone else? Patient reports no desire to harm self or others. Onset of symptoms was March 13, 2021. 16:05 Method Of Arrival: Ambulatory ll1 16:05 Acuity: BONI 3 ll1 Historical: - Allergies: 16:07 PENICILLINS; ll1 - PMHx: 16:07 Gout; kidney failure; High Cholesterol; Diabetes - NIDDM; Hypertension; Thyroid ll1 problem; ULCER; - PSHx: 16:07 hysterectomy; ll1 - Immunization history:: Client reports receiving the 2nd dose of the Covid vaccine, Flu vaccine is up to date. - Social history:: Smoking status: Patient denies any tobacco usage or history of. Vital Signs: 16:05 BP 177 / 82; Pulse 66; Resp 17; Temp 98.7; Pulse Ox 100% on R/A; Weight 74.84 kg; ll1 Height 5 ft. 2 in. (157.48 cm); Pain 8/10; 16:05 Body Mass Index 30.18 (74.84 kg, 157.48 cm) ll1 ED Course: 15:48 Patient arrived in ED. ds1 16:05 Arm band placed on. ll1 16:07 Triage completed. ll1 Administered Medications: No medications were administered Outcome: 17:30 Patient left the ED. ll1 Signatures: Candida Estrada ds1 Ailyn Joseph RN RN ll1 Corrections: (The following items were deleted from the chart) 16:09 16:05 Chief complaint: Patient states: R sided LION since 10 am. States her R hand feel ll1 numb. States she is having trouble concentrating. ll1
[2021-03-13 17:39] VITALS: BP 177/82; TEMP 98.7; O2SAT 100
== END 2021-03-13 17:30 | disposition left against medical advice (07) ==
LOC: ER 15:45
DX: Z02.9 Encounter for administrative examinations, unspecified (principal)
CPT/HCPCS: 99281

== ENCOUNTER 2022-07-25 21:30 | Observation (INO) | payer MEDICARE, OTHER ==
--- OUTSIDE RECORDS SUMMARY | 2022-07-25 21:43 | XMS REPORT | Continuity of Care Document ---
:1950 Author Organization [facility] t Address [address] [place] [address] Dr. Link. [address] [place] [address] Care Team Providers Name Role Phone CALIXTO, JIHAN Primary Care Physician Unavailable Jihan Calixto L Attending Clinician Unavailable NICOLAS CAMPA Attending Clinician Unavailable Toño Álvarez Attending Clinician Unavailable Hollie Cheung Attending Clinician Unavailable Caitlin Wood Attending Clinician Unavailable NELY SCOTT Attending Clinician Unavailable Nely Scott NP Attending Clinician Doctor Unassigned, [place] Attending Clinician Unavailable Rosalinda Cr Attending Clinician Unavailable Nicolas Campa MD Attending Clinician Only, Adc Test Attending Clinician Unavailable Pob, Adc Lab Main Attending Clinician Unavailable Sylvia Iglesias CRNA Attending Clinician SYLVIA IGLESIAS Attending Clinician Unavailable Mirian Montalvo MD Attending Clinician MIRIAN MONTALVO Attending Clinician Unavailable RADIOLOGY Attending Clinician Unavailable Radiology Attending Clinician Unavailable NICOLAS CAMPA Admitting Clinician Unavailable Rosalinda Cr Admitting Clinician Unavailable NELY SCOTT Admitting Clinician Unavailable Physician, No Primary or Family Admitting Clinician UnavailNicolas Gan MD Admitting Clinician JIHAN CALIXTO Admitting Clinician Unavailable Payers Payer Name Policy Type Policy Number Effective Date Expiration Date Magaly wayne [employer]ant[employer] [id number] 2021spring 00:00:00 AARP MEDICARE 53 [id number] 2020 Common Sp shannan ADVANTAGE 00:00:00 - [facility] Problems Condition Condition Condition Status Onset Resolution Last Treating Co mments Source Name Details Category Date Date Treatment Clinician Date Primary Primary Disease Active Univers hypothyroi hypothyroi 6-12 it y of dism dism 00:00: [place] [address] Medical Branch Arm Arm Disease Active Univers laceration laceration 4-26 it y of 00:00: [address] Branch Obesity Obesity Disease Active Univers (BMI (BMI 4-26 ity of 30-39.9) 30-39.9) 00:00: [address] Branch Hypokalemi Hypokalemi Disease Active U nivers a a 9-21 ity of 00:00: [place] [address] Medical Branch Sleep Sleep Disease Active Univers disorder disorder 8-25 [place] of breathing [place] [facility] [place] Atypical Atypical Disease Active Unive rs chest pain chest pain 8-25 it y of 00:00: [place] [facility] Gouty Gouty Disease Active Univers arthritis arthritis 8-18 ity of 00:00: [place] [address] Medical Branch Hyperurice Hyperurice Disease Active U nivers jatin jatin 8-18 ity of 00:00: [place] [address] Medical Branch Encounter Encounter Disease Active Uni vers for for 8-18 ity of long-term long-term 00:00: [place] (current) (current) 00 Medi ramon use of use of Branch other other high-risk high-risk medication medication s s Osteoarthr Osteoarthr Disease Active U nivers itis, itis, 8-18 ity of generalize generalize [place] CKD CKD Disease Active Univers (chronic (chronic 8-18 ity of kidney kidney 00:00: [place] disease) disease) 00 Medica l stage 3, stage 3, Branch GFR 30-59 GFR 30-59 ml/min ml/min Hypernatre Hypernatre Disease Active U pattie steiner 7-21 ity of 00:00: [place] 00 Medical Branch Chronic Chronic Disease Active Univers kidney kidney 5-16 ity of disease disease 00:00: [place] (CKD) (CKD) 00 Medical stage stage Branch G3b/A3, G3b/A3, moderately moderately decreased decreased glomerular glomerular filtration filtration rate (GFR) rate (GFR) between between 30-44 30-44 mL/min/1.7 mL/min/1.7 3 square 3 square meter and meter and albuminuri albuminuri a a creatinine creatinine ratio ratio greater greater than 300 than 300 mg/g mg/g [id number] Chronic Problem Commo n gout Spirit without - [facility], [facility] Center d site [id number] Hypertensi Problem Com sun on, Spirit unspecifie - [facility] d [facility] Impaired Impaired Problem Commo n memory memory [facility] Osteoporos Other Problem Commo n is osteoporos [facility] is [facility] Sinus Sinus Problem Common problem problem [facility] [id number] Chronic Problem Commo n kidney Spirit disease, - [facility]I unspecifie [facility] [id number] Type 2 Problem Common diabetes Spirit mellitus - [facility] with [facility] nephropath Medica l y Center [id number] Skin Problem Common lesions Spirit [facility] [id number] Constipati Problem Com mon on, Spirit unspecifie - CHI d constipati [facility] on [facility] [id number] Gastroesop Problem Co mmon hageal Spirit reflux - [facility] disease, esophagiti [facility] s presence Medica l not Center specified [id number] Abnormal Problem Commo n kidney Spirit function - [facility] [id number] Chest Problem Common pain, Spirit unspecifie - [facility]I d [facility] [id number] Status Problem Common post fall [facility] [id number] HDL Problem Common deficiency Spirit - [facility] [id number] Mastalgia Problem Comm on Spirit - [facility] [id number] Coccygeal Problem Comm on pain [facility] [id number] Left leg Problem Comm on pain [facility] Abnormal Abnormal Problem Commo n mammogram mammogram Spir it - [facility] [id number] Abnormalit Problem Com mon y on Spirit screening - [facility] test [facility] [id number] Peripheral Problem Co mmon edema Spirit - [facility] [id number] Left arm Problem Comm on pain [facility] [id number] [place] [id number] eyes [facility] [id number] Shortness Problem Com mon of breath [facility] [id number] Acute pain Problem Com mon of left Spirit shoulder [facility] [id number] Acute Problem Common pharyngiti Spirit s, - [facility] unspecifie [facility] [id number] Swelling Problem Commo n Spirit [facility] Dyspepsia Dyspepsia Problem Com mon Spirit [facility] [id number] Chronic Problem Commo n kidney Spirit disease, - [facility] stage 4 ([facility] [id number] 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 - [facility] vaginitis [facility] [id number] Hypomagnes Problem Co mmon emia Spirit [facility] [id number] Suprapubic Problem Co mmon abdominal Spirit pain - [facility] [id number] Type 2 Problem Common diabetes Spirit mellitus - [facility] with [facility] kidney Center disease [id number] Seasonal Problem Comm on allergies Spirit [facility] [id number] History of Problem Co mmon colon Spirit polyps - [facility] [id number] 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 [facility] [id number] Other Problem Common chronic Spirit pain [facility] [id number] Type 2 Problem Common diabetes Spirit mellitus - [facility] with [facility] Hyperlipid Hyperlipem Problem C ommon aemia ia Spirit - [facility] [id number] Hypothyroi Problem Com mon dism, Spirit unspecifie - [facility] d type [facility] [id number] Sea Problem Common sickness, Spirit initial - [facility] encounter [facility] [id number] shelter Problem Com mon (current) Spirit use of - [facility] insulin [facility] [id number] Cough Problem Common [facility] Allergic Allergic Problem Commo n rhinitis rhinitis [facility] Diabetes Diabetes Problem Commo n mellitus DMII Spirit without without - CHI complicati complicati [facility] Essential Essential Problem Com mon hypertensi hypertensi Sp shannan on on [facility] Edema Edema Problem Common [facility] [id number] Hypercalce Problem Com mon jatin [facility] Allergies, Adverse Reactions, Alerts Allergy Allergy Status Severity Reaction(s) Onset Inactive Treating Comm ents Source Name Type Date Date Clinician [place] DA Active MO RASH 2016-08 [facility] ins 0-01 Clear 00:00: [place] 00 [facility] [place] Propensi Active Rash Univer s ins ty to 6-28 ity of adverse 00:00: [place] reaction 00 Medical s [place] PENICILL Drug Active Rash Univers INS Class 6-28 ity of 00:00: [place] 00 Medical [place] Propensi Active Rash Univer s ins ty to 6-28 ity of adverse 00:00: [place] reaction 00 Medical s [place] 0 Drug Active Unknown Common allergy [facility] Social History Social Habit Start Date Stop Date Quantity Comments Source History of Common Spirit - Tobacco Use [facility] Sex Assigned At Common Sp shannan - [facility] Exposure to 2022-03-30 2022-04-09 Not sure University SARS-CoV-2 00:00:00 12:54:00 [place] Medical (event) Branch Alcohol intake 2022-04-09 2022-04-09 Current University of 00:00:00 00:00:00 non-drinker of [facility] alcohol (finding) Branch Tobacco use and 2016-03-07 2016-03-07 Smokeless tobacco Un iversity of exposure 00:00:00 00:00:00 non-user [facility] Smoking Status Start Date Stop Date Source Never Smoker Common Spirit - [facility] Medications Ordered Filled Start Stop Current Ordering Indication Dosage Frequency Signature Comments Components Source Medication Medication Date Date Medication? Clinician (SIG) Name Name kate Yes 40mg Take 40 mg Univers n 40 mg 8-28 by mouth ity of tablet 13:05: at [place] 04 bedtime. Medical Branch prednisoLON Yes 1 drop Univ ers E acetate 1 04-09 into ity of % 13:02: affected [place] ophthalmic 31 eye Medical suspension Branch drops SITagliptin Yes 1 tablet Un andrew 100 mg 04-09 ity of tablet 13:02: [place] [address] Medical Branch sulfamethox 2021- No 1 tablet U nivers azole-trime 04-09 ity of thoprim 12:47: 00:00 [place] (BACTRIM 20 :00 Medical DS) 800-160 Branch mg per tablet aspirin Yes 1 tablet Univer s (ASPIR-81) 04-09 ity of 81 mg EC 12:46: [facility] 30 [facility] Branch carvediloL Yes 1 tablet Uni vers 6.25 mg 04-09 with food ity of tablet 12:46: [address] Branch linaGLIPtin Yes 1 tablet Un [place] (TRADJENTA) 04-09 ity of 5 mg tablet 12:46: [address] pantoprazol Yes 1 tablet Un andrew e 40 mg EC 04-09 ity of tablet 12:46: [address] neomycin-po 2021- No PRN, Unive rs lymyxin-dex 03-01 Starting ity of amethasone 14:10: 14:22 [place] (MAXITROL) 00 :00 03/01/22 at Med ical 3.5 0910, Branch mg/g-10,000 Until Sun unit/g-0.1 03/01/22 at % 0922, ophthalmic Routine, ointment Intra-op dexamethaso 2021- No PRN, Unive rs ne 03-01 Starting ity of (DECADRON 14:09: 14:22 on Sun [place] PHOSPHATE) 00 :00 03/01/22 at Med ical injection 0909, Branch Until Sun03/01/22 at 0922, Routine, Intra-op ceFAZolin 2021- No PRN, Univers (ANCEF) 03-01 Starting ity of injection 14:09: 14:22 on Sun [place] 00 :00 03/01/22 at Medical 0909, Branch Until Sun03/01/22 at 0922, JEFF, Intra-op carbachoL 2021- No PRN, Univers (MIOSTAT) 03-01 Starting ity o f 0.01 % 14:08: 14:22 on Sun [place] intraocular 00 :00 03/01/22 at Nd dical injection 907, Branch Until Sun03/01/22 at 0922, Routine, Intra-op chondroitin 2021- No PRN, Unive rs sulf-sod 03-01 Starting ity of hyaluronate 14:08: 14:22 on Sun [place] (DUOVISC 00 :00 03/01/22 at Medic al VISCO 09, Branch ELASTIC) Until Wed intraocular 03/01/22 at injection 0922, Routine, Intra-op EPINEPHrine 2021- No PRN, Unive rs 1:1,000 (1 03-01 Starting ity of mg/mL) 14:05: 14: on [place] (ADRENALIN) 00 :00 03/01/22 at Nd dical injection 904, Branch Until Sun03/01/22 at 0922, Routine, Intra-op balanced 2021- No PRN, Univers salt irrig 03-01 Starting ity of soln comb1 14:05: 14:22 [place] (BSS PLUS) 00 :00 03/01/22 at Med ical ophthalmic 904, Branch solution Until Wed 500 mL bag 03/01/22 at 0922, Routine, Intra-op sodium 2021- No PRN, Univers chloride 03-01 Starting ity of (NS) 14:05: 14:22 on Sun [place] injection 00 :00 03/01/22 at Medi ramon 0905, Branch Until Sun03/01/22 at 0922, Routine, Intra-op water for 2021- No PRN, Univers irrigation 03-01 Starting ity of irrigation 14:02: 14:22 [place] solution 00 :00 7/20/22 at Medic al 0902, Branch Until Sun03/01/22 at 0922, Routine, Intra-op Hyaluronida 2021- No PRN, Unive rs se, Human 03-01 Starting ity o f Recomb. 13:58: 14:22 on Sun (HYLENEX) 00 :00 03/01/22 at Medi ramon injection 0858, Branch Until Sun03/01/22 at 0922, Routine, Intra-op eye block 2021- No PRN, Univers syringe 11 03-01 Starting ity of mL 13:58: 14:22 on Sun 00 :00 03/01/22 at Medical 0858, Branch Until Sun03/01/22 at 921, Intra-op cyclopent 2021- No .5mL 0.5 mL, Univ ers 1%-tropic 03-01 Right Eye, ity of 1%-phenyl 13:00: 12:49 ONCE, 1 [place] 2.5%-ketor 00 :00 dose, On Medic al 0.5% Sun Branch (MYDRIATIC 03/01/22 at #5) 0800, ophthalmic Routine, solution DSU Pre-op syringe 0.5 mL lactated 2021- No 1000mL at 42 Unive rs ringers IV 03-01 07-20 mL/hr, ity of infusion 13:00: 12:52 1,000 mL, [place] 1,000 mL 00 :00 IV Medical Infusion, Branch ONCE, 1 dose, On Sun03/01/22 at 0800, Routine, DSU Pre-op cyclopent 2021- No .5mL 0.5 mL, Univ ers 1%-tropic 03-0120 Right Eye, ity of 1%-phenyl 13:00: 12:49 ONCE, 1 [place] 2.5%-ketor 00 :00 dose, On Medic al 0.5% Sun Branch (MYDRIATIC 03/01/22 at #5) 0800, ophthalmic Routine, solution DSU Pre-op syringe 0.5 mL lactated 2021- No 1000mL at 42 Unive rs ringers IV 7 07-20 mL/hr, ity of infusion 13:00: 12:52 1,000 mL, [place] 1,000 mL 00 :00 IV Medical Infusion, Branch ONCE, 1 dose, On Sun03/01/22 at 0800, Routine, DSU Pre-op ASPIRIN 81 0 Yes 81mg Take 81 mg U nivers MG ORAL TAB 7-20 by mouth ity of 09:55: daily. [address] levothyroxi Yes [id number] 50ug Take 50 Univers ne 50 mcg 7-20 mcg by ity of tablet 09:55: mouth [place] [address] every Medical morning. Branch insulin Yes 50U inject 50 Unive rs glargine,hu 7-20 Units ity of m.rec.anlog 09:55: under [place] ([place]) 29 skin Medical daily. Branch Each morning ASPIRIN 81 0 Yes 81mg Take 81 mg U nivers MG ORAL TAB 7-20 by mouth ity of 09:55: daily. [address] levothyroxi Yes [id number] 50ug Take 50 Univers ne 50 mcg 7-20 mcg by ity of tablet 09:55: mouth [place] [address] every Medical morning. Branch insulin Yes 50U inject 50 Unive rs glargine,hu 7-20 Units ity of m.rec.anlog 09:55: under [place] ([place] 29 skin Medical daily. Branch Each morning ASPIRIN 81 0 Yes 81mg Take 81 mg U nivers MG ORAL TAB 7-20 by mouth ity of 09:55: daily. [address] levothyroxi Yes [id number] 50ug Take 50 Univers ne 50 mcg 7-20 mcg by ity of tablet 09:55: mouth [place] [address] every Medical morning. Branch insulin Yes 50U inject 50 Unive rs glargine,hu 7-20 Units ity of m.rec.anlog 09:55: under [place] ([place] 29 skin Medical daily. Branch Each morning ASPIRIN 81 0 Yes 81mg Take 81 mg U nivers MG ORAL TAB 7-20 by mouth ity of 09:55: daily. [address] levothyroxi Yes [id number] 50ug Take 50 Univers ne 50 mcg 7-20 mcg by ity of tablet 09:55: mouth [place] 29 every Medical morning. Branch insulin Yes 50U inject 50 Unive rs glargine,hu 7-20 Units ity of m.rec.anlog 09:55: under [place] ([place] 29 skin Medical daily. [place] Each morning neomycin-po 2021- No PRN, Unive rs lymyxin-dex 02-15 Starting ity of amethasone 14:31: 14:34 [place] (MAXITROL[place] 00 :14 02/15/22 at [facility] ramon 3.5 0931, Branch mg/g-10,000 Until Sun unit/g-0.1 02/15/22 at % 0934, ophthalmic Routine, ointment Intra-op sodium 2021- No PRN, Univers chloride 02-15 Starting ity of (NS) 14:28: 14:34 on Sun [place] injection 00 :14 02/15/22 at Medic al 0928, Branch Until Sun02/15/22 at 0934, Routine, Intra-op dexamethaso 2021- No PRN, Unive rs ne 02-15 Starting ity of (DECADRON 14:28: 14:34 on Sun [place] PHOSPHATE) 00 :14 02/15/22 at Medi ramon injection 0928, Branch Until Sun02/15/22 at 0934, Routine, Intra-op ceFAZolin 2021- No PRN, Univers (ANCEF) 02-15 Starting ity of injection 14:28: 14:34 on Sun [place] 00 :14 02/15/22 at Medical 0928, Branch Until Sun02/15/22 at 0934, JEFF, Intra-op carbachoL 2021- No PRN, Univers (MIOSTAT) 02-15 Starting ity o f 0.01 % 14:26: 14:34 on Sun [place] intraocular 00 :14 02/15/22 at Med ical injection 0926, Branch Until Sun02/15/22 at 0934, Routine, Intra-op EPINEPHrine 2021- No PRN, Unive rs 1:1,000 (1 02-15 Starting ity of mg/mL) 14:14: 14:34 on Sun [place] (ADRENALIN) 00 :14 02/15/22 at Med ical injection 913, Branch Until Sun02/15/22 at 0934, Routine, Intra-op chondroitin 2021- No PRN, Unive rs sulf-sod 02-15 Starting ity of hyaluronate 14:14: 14:34 on Sun [place] (DUOVISC 00 :14 02/15/22 at Medica l VISCO 0914, Branch ELASTIC) Until Sun intraocular 02/15/22 at injection 0934, Routine, Intra-op balanced 2021- No PRN, Univers salt irrig 02-15 Starting ity of soln comb1 14:14: 14:34 on [place] (BSS PLUS) 00 :14 02/15/22 at [facility] ophthalmic 913, Branch solution Until Sun 500 mL bag 02/15/22 at 0934, Routine, Intra-op water for 2021- No PRN, Univers irrigation 02-15 Starting ity of irrigation 14:11: 14:34 on Sun [place] solution 00 :14 02/15/22 at Medica l 0911, Branch Until Sun02/15/22 at 0934, Routine, Intra-op Hyaluronida 2021- No PRN, Unive rs se, Human 02-15 Starting ity o f Recomb. 14:07: 14:34 on Sun (HYLENEX) 00 :14 02/15/22 at Medic al injection 906, Branch Until Sun02/15/22 at 0934, Routine, Intra-op eye block 2021- No PRN, Univers syringe 11 02-15 Starting ity of mL 14:07: 14:34 on Sun [place] 00 :14 02/15/22 at Medical 0907, Branch Until Sun02/15/22 at 0934, Intra-op cyclopent 2021- No .5mL 0.5 mL, Univ ers 1%-tropic 02-15 Left Eye, ity of 1%-phenyl 12:45: 12:48 ONCE, 1 [place] 2.5%-ketor 00 :00 dose, On Medic al 0.5% Sun02/15/22 Branch (MYDRIATIC at 0745, #5) Routine, ophthalmic DSU Pre-op solution syringe 0.5 mL lactated 2021- No 1000mL at 42 Unive rs ringers IV 02-15 07-06 mL/hr, ity of infusion 12:45: 12:59 1,000 mL, [place] 1,000 mL 00 :00 IV Medical Infusion, Branch ONCE, 1 dose, On Sun02/15/22 at 0745, Routine, DSU Pre-op cyclopent 2021- No .5mL 0.5 mL, Univ ers 1%-tropic 02-15 Left Eye, ity of 1%-phenyl 12:45: 12:48 ONCE, 1 [place] 2.5%-ketor 00 :00 dose, On Medic al 0.5% Sun02/15/22 Branch (MYDRIATIC at 0745, #5) Routine, ophthalmic DSU Pre-op solution syringe 0.5 mL lactated 2021- No 1000mL at 42 Unive rs ringers IV 02-15 07-06 mL/hr, ity of infusion 12:45: 12:59 1,000 mL, [place] 1,000 mL 00 :00 IV Medical Infusion, Branch ONCE, 1 dose, On Sun02/15/22 at 0745, Routine, DSU Pre-op ASPIRIN 81 Yes 81mg Take 81 mg U nivers MG ORAL TAB 7-06 by mouth ity of 10:11: daily. [address] levothyroxi Yes [id number] 50ug Take 50 Univers ne 7-06 mcg by ity of (SYNTHROID) 10:11: mouth [place] 50 mcg 36 every Medical tablet morning. Branch insulin Yes 50U inject 50 Unive rs glargine,hu 7-06 Units ity of m.rec.anlog 10:11: under [place] ([place] 36 skin Medical daily. Branch Each morning ASPIRIN 81 Yes 81mg Take 81 mg U nivers MG ORAL TAB 7-06 by mouth ity of 10:11: daily. [address] levothyroxi Yes [id number] 50ug Take 50 Univers ne 7-06 mcg by ity of (SYNTHROID) 10:11: mouth [place] 50 mcg 36 every Medical tablet morning. Branch insulin 0 Yes 50U inject 50 Unive rs glargine,hu 7-06 Units ity of m.rec.anlog 10:11: under [place] ([place] 36 skin Medical daily. Branch Each morning ASPIRIN 81 2021-0 Yes 81mg Take 81 mg U nivers MG ORAL TAB 7-06 by mouth ity of 10:11: daily. [place] [address] Medical Branch levothyroxi 0 Yes [id number] 50ug Take 50 Univers ne 7-06 mcg by ity of (SYNTHROID) 10:11: mouth [place] 50 mcg 36 every Medical tablet morning. Branch insulin 0 Yes 50U inject 50 Unive rs glargine,hu 7-06 Units ity of m.rec.anlog 10:11: under [place] ([place] 36 skin Medical daily. Branch Each morning omeprazole 2021-0 Yes 20mg Take 20 mg U nivers 20 mg 6-30 by mouth ity of capsule 00:00: in the [place] morning Medical and 20 mg Branch in the evening. omeprazole 2021-0 Yes 20mg Take 20 mg U nivers 20 mg 6-30 by mouth ity of capsule 00:00: in the [place] morning Medical and 20 mg Branch in the evening. omeprazole 2021-0 Yes 20mg Take 20 mg U nivers 20 mg 6-30 by mouth ity of capsule 00:00: in the [place] morning Medical and 20 mg Branch in the evening. omeprazole 2021-0 Yes 20mg Take 20 mg U nivers 20 mg 6-30 by mouth ity of capsule 00:00: in the [place] morning Medical and 20 mg Branch in the evening. Sodium Sodium 2021-0 No Sodium Polystyrene Polystyrene 6-30 Polystyren Sulfonate Sulfonate 00:00: e 15 GM/60ML 15 GM/60ML 00 Sulfonate 15 GM/60ML Kayexalate Kayexalate 2021-0 No QD Kayexalate 15 gram 15 gram 6-30 15 gram 00:00: 00 Omeprazole Omeprazole 2021-0 No 1{capsu BID Omeprazole 20 MG 20 MG 6-30 le} 20 MG 00:00: 00 Sodium Sodium 2022-0 No Sodium Polystyrene Polystyrene 6-30 Polystyren Sulfonate Sulfonate 00:00: e 15 GM/60ML 15 GM/60ML 00 Sulfonate 15 GM/60ML Kayexalate Kayexalate 2022-0 No QD Kayexalate 15 gram 15 gram 6-30 15 gram 00:00: 00 Omeprazole Omeprazole 2022-0 No 1{capsu BID Omeprazole 20 MG 20 MG 6-30 le} 20 MG 00:00: 00 Sodium Sodium 2022-0 No Sodium Polystyrene Polystyrene 6-30 Polystyren Sulfonate Sulfonate 00:00: e 15 GM/60ML 15 GM/60ML 00 Sulfonate 15 GM/60ML Kayexalate Kayexalate 2022-0 No QD Kayexalate 15 gram 15 gram 6-30 15 gram 00:00: 00 Omeprazole Omeprazole 2-0 No 1{capsu BID Omeprazole 20 MG 20 MG 6-30 le} 20 MG 00:00: 00 Sodium Sodium 2022-0 No Sodium Polystyrene Polystyrene 6-30 Polystyren Sulfonate Sulfonate 00:00: e 15 GM/60ML 15 GM/60ML 00 Sulfonate 15 GM/60ML Kayexalate Kayexalate 2022-0 No QD Kayexalate 15 gram 15 gram 6-30 15 gram 00:00: 00 Omeprazole Omeprazole 2022-0 No 1{capsu BID Omeprazole 20 MG 20 MG 6-30 le} 20 MG 00:00: 00 Kayexalate Kayexalate 2022-0 No QD Kayexalate 15 gram 15 gram 6-30 15 gram 00:00: 00 Sodium Sodium 2022-0 No Sodium Polystyrene Polystyrene 6-30 Polystyren Sulfonate Sulfonate 00:00: e 15 GM/60ML 15 GM/60ML 00 Sulfonate 15 GM/60ML Omeprazole Omeprazole 2022-0 No 1{capsu BID Omeprazole 20 MG 20 MG 6-30 le} 20 MG 00:00: 00 Kayexalate Kayexalate 2022-0 No QD Kayexalate 15 gram 15 gram 6-30 15 gram 00:00: 00 Omeprazole Omeprazole 2022-0 No 1{capsu BID Omeprazole 20 MG 20 MG 6-30 le} 20 MG 00:00: 00 Sodium Sodium 2022-0 No Sodium Polystyrene Polystyrene 6-30 Polystyren Sulfonate Sulfonate 00:00: e 15 GM/60ML 15 GM/60ML 00 Sulfonate 15 GM/60ML Kayexalate Kayexalate 2022-0 No QD Kayexalate 15 gram 15 gram 6-30 15 gram 00:00: 00 Omeprazole Omeprazole 2022-0 No 1{capsu BID Omeprazole 20 MG 20 MG 6-30 le} 20 MG 00:00: 00 Sodium Sodium 2022-0 No Sodium Polystyrene Polystyrene 6-30 Polystyren Sulfonate Sulfonate 00:00: e 15 GM/60ML 15 GM/60ML 00 Sulfonate 15 GM/60ML Sodium Sodium 2022-0 No Sodium Polystyrene Polystyrene 6-30 Polystyren Sulfonate Sulfonate 00:00: e 15 GM/60ML 15 GM/60ML 00 Sulfonate 15 GM/60ML Kayexalate Kayexalate 2022-0 No QD Kayexalate 15 gram 15 gram 6-30 15 gram 00:00: 00 Omeprazole Omeprazole 2-0 No 1{capsu BID Omeprazole 20 MG 20 MG 6-30 le} 20 MG 00:00: 00 Sodium Sodium 2022-0 No Sodium Polystyrene Polystyrene 6-30 Polystyren Sulfonate Sulfonate 00:00: e 15 GM/60ML 15 GM/60ML 00 Sulfonate 15 GM/60ML Kayexalate Kayexalate 2022-0 No QD Kayexalate 15 gram 15 gram 6-30 15 gram 00:00: 00 Omeprazole Omeprazole 2-0 No 1{capsu BID Omeprazole 20 MG 20 MG 6-30 le} 20 MG 00:00: 00 Clarithromy Clarithromy 2021-0 2- No 1{table BID Clarithrom marciano 500 MG marciano 500 MG 02-09 t} ycin 500 00:00: 00:00 MG 00 :00 metroNIDAZO metroNIDAZO 2021-0 2- No 1{table TID metroNIDAZ LE 500 MG LE 500 MG 02-09 t} OLE 500 MG 00:00: 00:00 00 :00 Clarithromy Clarithromy 2021-0 2022- No 1{table BID Clarithrom marciano 500 MG marciano 500 MG 02-09 t} ycin 500 00:00: 00:00 MG 00 :00 metroNIDAZO metroNIDAZO 2021- No 1{table TID metroNIDAZ LE 500 MG LE 500 MG 02-09 t} OLE 500 MG 00:00: 00:00 00 :00 insulin Yes 50U inject 50 Unive rs glargine,hu 6-29 Units ity of m.rec.anlog 11:13: under the [place] 06 skin Medical daily. Branch Each morning insulin Yes 50U inject 50 Unive rs glargine,hu 6-29 Units ity of m.rec.anlog 11:13: under the [place] 06 skin Medical daily. Branch Each morning insulin Yes 50U inject 50 Unive rs glargine,hu 6-29 Units ity of m.rec.anlog 11:13: under the [place] 06 skin Medical daily. Branch Each morning insulin Yes 50U inject 50 Unive rs glargine,hu 6-29 Units ity of m.rec.anlog 11:13: under the [place] 06 skin Medical daily. Branch Each morning insulin Yes 50U inject 50 Unive rs glargine,hu 6-29 Units ity of m.rec.anlog 11:13: under the [place] 06 skin Medical daily. Branch Each morning ASPIRIN 81 Yes 81mg Take 81 mg U nivers MG ORAL TAB 6-29 by mouth ity of 11:06: daily. [address] levothyroxi Yes [id number] 50ug Take 50 Univers ne 6-29 mcg by ity of (SYNTHROID) 11:06: mouth [place] 50 mcg 37 every Medical tablet morning. Branch ASPIRIN 81 0 Yes 81mg Take 81 mg U nivers MG ORAL TAB 6-29 by mouth ity of 11:06: daily. [address] levothyroxi Yes [id number] 50ug Take 50 [facility] ne 6-29 mcg by ity of (SYNTHROID) 11:06: mouth [place] 50 mcg 37 every Medical tablet morning. [place] ASPIRIN 81 0 Yes 81mg Take 81 mg U nivers MG ORAL TAB 6-29 by mouth ity of 11:06: daily. [address] levothyroxi 0 Yes [id number] 50ug Take 50 [facility] ne 6-29 mcg by ity of (SYNTHROID) 11:06: mouth [place] 50 mcg 37 every Medical tablet morning. [place] ASPIRIN 81 0 Yes 81mg Take 81 mg U nivers MG ORAL TAB 6-29 by mouth ity of 11:06: daily. [address] levothyroxi 0 Yes [id number] 50ug Take 50 [facility] ne 6-29 mcg by ity of (SYNTHROID) 11:06: mouth [place] 50 mcg 37 every Medical tablet morning. [place] ASPIRIN 81 Yes 81mg Take 81 mg U nivers MG ORAL TAB 6-29 by mouth ity of 11:06: daily. [address] levothyroxi Yes [id number] 50ug Take 50 [facility] ne 6-29 mcg by ity of (SYNTHROID) 11:06: mouth [place] 50 mcg 37 every Medical tablet morning. [place] Fish Oil Fish Oil 2021-0 No 1{capsu BID Fish Oil 500 MG 500 MG 6-29 le} 500 MG 00:00: 00 Magnesium Magnesium 2021-0 No Magnesium Oxide 500 Oxide 500 6-29 Oxide 500 MG MG 00:00: MG 00 Fish Oil Fish Oil 2021-0 No 1{capsu BID Fish Oil 500 MG 500 MG 6-29 le} 500 MG 00:00: 00 Magnesium 2021-0 Yes as [facility] Oxide 500 6-29 directed ity of mg Cap 00:00: [address] Magnesium Magnesium 2021-0 No Magnesium Oxide 500 Oxide 500 6-29 Oxide 500 MG MG 00:00: MG 00 Fish Oil Fish Oil 2021-0 No 1{capsu BID Fish Oil 500 MG 500 MG 6-29 le} 500 MG 00:00: 00 Magnesium Magnesium 2021-0 No Magnesium Oxide 500 Oxide 500 6-29 Oxide 500 MG MG 00:00: MG 00 Fish Oil Fish Oil 2021-0 No 1{capsu BID Fish Oil 500 MG 500 MG 6-29 le} 500 MG 00:00: 00 Magnesium Magnesium 2021-0 No Magnesium Oxide 500 Oxide 500 6-29 Oxide 500 MG MG 00:00: MG 00 Fish Oil Fish Oil 2021-0 No 1{capsu BID Fish Oil 500 MG 500 MG 6-29 le} 500 MG 00:00: 00 Magnesium Magnesium 2021-0 No Magnesium Oxide 500 Oxide 500 6-29 Oxide 500 MG MG 00:00: MG 00 Fish Oil Fish Oil 2021-0 No 1{capsu BID Fish Oil 500 MG 500 MG 6-29 le} 500 MG 00:00: 00 Magnesium Magnesium 2021-0 No Magnesium Oxide 500 Oxide 500 6-29 Oxide 500 MG MG 00:00: MG 00 Fish Oil Fish Oil 2021-0 No 1{capsu BID Fish Oil 500 MG 500 MG 6-29 le} 500 MG 00:00: 00 Magnesium Magnesium 2021-0 No Magnesium Oxide 500 Oxide 500 6-29 Oxide 500 MG MG 00:00: MG 00 Fish Oil Fish Oil 2021-0 No 1{capsu BID Fish Oil 500 MG 500 MG 6-29 le} 500 MG 00:00: 00 Magnesium Magnesium 2021-0 No Magnesium Oxide 500 Oxide 500 6-29 Oxide 500 MG MG 00:00: MG 00 Fish Oil Fish Oil 2021-0 No 1{capsu BID Fish Oil 500 MG 500 MG 6-29 le} 500 MG 00:00: 00 Magnesium Magnesium 2021-0 No Magnesium Oxide 500 Oxide 500 6-29 Oxide 500 MG MG 00:00: MG 00 Fish Oil Fish Oil 2021-0 No 1{capsu BID Fish Oil 500 MG 500 MG 6-29 le} 500 MG 00:00: 00 Magnesium Magnesium 2021-0 No Magnesium Oxide 500 Oxide 500 6-29 Oxide 500 MG MG 00:00: MG 00 famotidine 0 Yes 20mg Take 20 mg U nivers 20 mg 6-13 by mouth ity of tablet 00:00: daily. [address] triamcinolo Yes 1{appli Apply 1 [facility] ne 6-13 cator} Applicator ity of acetonide 00:00: to area(s) [place] 0.1 % cream 00 2 (two) Medic al times Branch daily as needed. famotidine 0 Yes 20mg Take 20 mg U nivers 20 mg 6-13 by mouth ity of tablet 00:00: daily. [address] triamcinolo 2022-0 Yes 1{appli Apply 1 [facility] ne 6-13 cator} Applicator ity of acetonide 00:00: to area(s) [place] 0.1 % cream 00 2 (two) Medic al times Branch daily as needed. famotidine 2021-0 Yes 20mg Take 20 mg U nivers 20 mg 6-13 by mouth ity of tablet 00:00: daily. [address] Yes 1{appli Apply 1 [facility] ne 6-13 cator} Applicator ity of acetonide 00:00: to area(s) [place] 0.1 % cream 00 2 (two) Medic al times Branch daily as needed. famotidine 2021-0 Yes 20mg Take 20 mg U nivers 20 mg 6-13 by mouth ity of tablet 00:00: daily. [address] Yes 1{appli Apply 1 [facility] ne 6-13 cator} Applicator ity of acetonide 00:00: to area(s) [place] 0.1 % cream 00 2 (two) Medic al times Branch daily as needed. famotidine 2021-0 Yes 20mg Take 20 mg U nivers 20 mg 6-13 by mouth ity of tablet 00:00: daily. [address] Yes 1{appli Apply 1 [facility] ne 6-13 cator} Applicator ity of acetonide 00:00: to area(s) [place] 0.1 % cream 00 2 (two) Medic al times Branch daily as needed. famotidine 2021-0 Yes 20mg Take 20 mg U nivers 20 mg 6-13 by mouth ity of tablet 00:00: daily. [address] Yes 1{appli Apply 1 [facility] ne 6-13 cator} Applicator ity of acetonide 00:00: to area(s) [place] 0.1 % cream 00 2 (two) Medic al times Branch daily as needed. famotidine 2021-0 Yes 20mg Take 20 mg U nivers 20 mg 6-13 by [facility]:00[facility] [address] [facility]li Apply 1 [facility] ne 6-13 cator} Applicator ity of acetonide 00:00: to area(s) [place] 0.1 % cream 00 2 (two) Medic al times Branch daily as needed. famotidine 2-0 Yes 20mg Take 20 mg U nivers 20 mg 6-13 by mouth ity of tablet 00:00: daily. [address] Yes 1{appli Apply 1 [facility] ne 6-13 cator} Applicator ity of acetonide 00:00: to area(s) [place] 0.1 % cream 00 2 (two) Medic al times Branch daily as needed. famotidine 2021-0 Yes 20mg Take 20 mg U nivers 20 mg 6-13 by mouth ity of tablet 00:00: daily. [address] Yes 1{appli Apply 1 [facility] ne 6-13 cator} Applicator ity of acetonide 00:00: to area(s) [place] 0.1 % cream 00 2 (two) Medic al times Branch daily as needed. famotidine 2021-0 Yes 20mg Take 20 mg U nivers 20 mg 6-13 by mouth ity of tablet 00:00: daily. [address] Yes 1{appli Apply 1 [facility] ne 6-13 cator} Applicator ity of acetonide 00:00: to area(s) [place] 0.1 % cream 00 2 (two) Medic al times Branch daily as needed. famotidine 2-0 Yes 20mg Take 20 mg U nivers 20 mg 6-13 by mouth ity of tablet 00:00: daily. [address] Yes 1{appli Apply 1 [facility] ne 6-13 cator} Applicator ity of acetonide 00:00: to area(s) [place] 0.1 % cream 00 2 (two) Medic al times Branch daily as needed. famotidine 2-0 Yes 20mg Take 20 mg U nivers 20 mg 6-13 by mouth ity of tablet 00:00: daily. [address] Yes 1{appli Apply 1 [facility] ne 6-13 cator} Applicator ity of acetonide 00:00: to area(s) [place] 0.1 % cream 00 2 (two) Medic al times Branch daily as needed. Cetirizine Cetirizine 2021-0 No 1{table Cetirizine HCl 10 MG HCl 10 MG 5-23 t} HCl 10 MG 00:00: 00 Cetirizine Cetirizine 2021-0 No 1{table Cetirizine HCl 10 MG HCl 10 MG 5-23 t} HCl 10 MG 00:00: 00 Cetirizine Cetirizine 2021-0 No 1{table Cetirizine HCl 10 MG HCl 10 MG 5-23 t} HCl 10 MG 00:00: 00 Cetirizine Cetirizine 2021-0 No 1{table Cetirizine HCl 10 MG HCl 10 MG 5-23 t} HCl 10 MG 00:00: 00 Cetirizine Cetirizine 2021-0 No 1{table Cetirizine HCl 10 MG HCl 10 MG 5-23 t} HCl 10 MG 00:00: 00 Cetirizine Cetirizine 2021-0 No 1{table Cetirizine HCl 10 MG HCl 10 MG 5-23 t} HCl 10 MG 00:00: 00 Cetirizine Cetirizine 2021-0 No 1{table Cetirizine HCl 10 MG HCl 10 MG 5-23 t} HCl 10 MG 00:00: 00 cetirizine 2021-0 Yes 10mg Take 10 mg U nivers 10 mg 5-23 by mouth ity of tablet 00:00: daily. [place] [facility] Diclofenac 2021-0 Yes 1{appli Apply 1 U nivers Sodium 1 % 5-23 cator} Applicator i ty of gel 00:00: to area(s) [place] [address] as needed. Medical Branch cetirizine 2021-0 Yes 10mg Take 10 mg U nivers 10 mg 5-23 by mouth ity of tablet 00:00: daily. [place] [facility] Diclofenac 2021-0 Yes 1{appli Apply 1 U nivers Sodium 1 % 5-23 cator} Applicator i ty of gel 00:00: to area(s) [place] [address] as needed. Medical Branch cetirizine 2021-0 Yes 10mg Take 10 mg U nivers 10 mg 5-23 by mouth ity of tablet 00:00: daily. [place] [facility] Diclofenac 0 Yes 1{appli Apply 1 U nivers Sodium 1 % 5-23 cator} Applicator i ty of gel 00:00: to [facility]() [place] [address] as needed. Medical Branch cetirizine 2021-0 Yes 10mg Take 10 mg U nivers 10 mg 5-23 by mouth ity of tablet 00:00: daily. [place] [facility] Diclofenac 2021-0 Yes 1{appli Apply 1 U nivers Sodium 1 % 5-23 cator} Applicator i ty of gel 00:00: to [facility](s) [place] [address] as needed. Medical Branch cetirizine 0 Yes 10mg Take 10 mg U nivers 10 mg 5-23 by mouth ity of tablet 00:00: daily. [place] [facility] Diclofenac 2021-0 Yes 1{appli Apply 1 U nivers Sodium 1 % 5-23 cator} Applicator i ty of gel 00:00: to [facility] [place] [address] as needed. Medical Branch cetirizine 2021-0 Yes 10mg Take 10 mg U nivers 10 mg 5-23 by mouth ity of tablet 00:00: daily. [place] [facility] Diclofenac 2021-0 Yes 1{appli Apply 1 U nivers Sodium 1 % 5-23 cator} Applicator i ty of gel 00:00: to [facility] [place] [address] as needed. Medical Branch cetirizine 0 Yes 10mg Take 10 mg U nivers 10 mg 5-23 by mouth ity of tablet 00:00: daily. [place] [facility] Diclofenac 2021-0 Yes 1{appli Apply 1 U nivers Sodium 1 % 5-23 cator} Applicator i ty of gel 00:00: to [facility] [place] [address] as needed. Medical Branch cetirizine 2021-0 Yes 10mg Take 10 mg U nivers 10 mg 5-23 by mouth ity of tablet 00:00: daily. [place] [facility] Diclofenac 2021-0 Yes 1{appli Apply 1 U nivers Sodium 1 % 5-23 cator} Applicator i ty of gel 00:00: to [facility] [place] [address] as needed. Medical Branch cetirizine 2021-0 Yes 10mg Take 10 mg U nivers 10 mg 5-23 by mouth ity of tablet 00:00: daily. Medical Branch Diclofenac 0 Yes 1{appli Apply 1 U nivers Sodium 1 % 5-23 cator} Applicator i ty of gel 00:00: to area(s) [place] [address] as needed. Medical Branch cetirizine 0 Yes 10mg Take 10 mg U nivers 10 mg 5-23 by mouth ity of tablet 00:00: daily. Medical Branch Diclofenac 0 Yes 1{appli Apply 1 U nivers Sodium 1 % 5-23 cator} Applicator i ty of gel 00:00: to area(s) [place] [address] as needed. Medical Branch cetirizine 0 Yes 10mg Take 10 mg U nivers 10 mg 5-23 by mouth ity of tablet 00:00: daily. [place] [facility] Diclofenac 0 Yes 1{appli Apply 1 U nivers Sodium 1 % 5-23 cator} Applicator i ty of gel 00:00: to [facility](s) [place] [address] as needed. Medical Branch cetirizine 0 Yes 10mg Take 10 mg U nivers 10 mg 5-23 by mouth ity of tablet 00:00: daily. [place] [facility] Diclofenac 0 Yes 1{appli Apply 1 U nivers Sodium 1 % 5-23 cator} Applicator i ty of gel 00:00: to area(s) [place] [address] as needed. Medical Branch fluticasone Yes 2{spray Use 2 Un [facility]rew propionate 4-25 } Sprays in ity of 50 00:00: each [place] mcg/actuati 00 nostril Medic al on nasal daily. Branch spray fluticasone 0 Yes 2{spray Use 2 [facility] propionate 4-25 } Sprays in ity of 50 00:00: each [place] mcg/actuati 00 nostril Medic al on nasal daily. Branch spray fluticasone 0 Yes 2{spray Use 2 [facility] propionate 4-25 } Sprays in ity of 50 00:00: each [place] mcg/actuati 00 nostril Medic al on nasal daily. Branch spray fluticasone 0 Yes 2{spray Use 2 [facility] propionate 4-25 } Sprays in ity of 50 00:00: each [place] mcg/actuati 00 nostril Medic al on nasal daily. Branch spray fluticasone 0 Yes 2{spray Use 2 [facility] propionate 4-25 } Sprays in ity of 50 00:00: each [place] mcg/actuati 00 nostril Medic al on nasal daily. Branch spray fluticasone 0 Yes 2{spray Use 2 [facility] propionate 4-25 } Sprays in ity of 50 00:00: each [place] mcg/actuati 00 nostril Medic al on nasal daily. Branch spray fluticasone 0 Yes 2{spray Use 2 [facility] propionate 4-25 } Sprays in ity of 50 00:00: each [place] mcg/actuati 00 nostril Medic al on nasal daily. Branch spray fluticasone 0 Yes 2{spray Use 2 [facility] propionate 4-25 } Sprays in ity of 50 00:00: each [place] mcg/actuati 00 nostril Medic al on nasal daily. Branch spray fluticasone 0 Yes 2{spray Use 2 [facility] propionate 4-25 } Sprays in ity of 50 00:00: each [place] mcg/actuati 00 nostril Medic al on nasal daily. Branch spray fluticasone 0 Yes 2{spray Use 2 [facility] propionate 4-25 } Sprays in ity of 50 00:00: each [place] mcg/actuati 00 nostril Medic al on nasal daily. Branch spray fluticasone 0 Yes 2{spray Use 2 [facility] propionate 4-25 } Sprays in ity of 50 00:00: each [place] mcg/actuati 00 nostril Medic al on nasal daily. Branch spray fluticasone 0 Yes 2{spray Use 2 [facility] propionate 4-25 } Sprays in ity of 50 00:00: each [place] mcg/actuati 00 nostril Medic al on nasal daily. Branch spray Acyclovir 5 Acyclovir 5 0 No 6xD Acyclovir % % 3-02 5 % 00:00: 00 Acyclovir 5 Acyclovir 5 2021-0 No 6xD Acyclovir % % 3-02 5 % 00:00: 00 Acyclovir 5 Acyclovir 5 2021-0 No 6xD Acyclovir % % 3-02 5 % 00:00: 00 Acyclovir 5 Acyclovir 5 2-0 No 6xD Acyclovir % % 3-02 5 % 00:00: 00 Acyclovir 5 Acyclovir 5 2-0 No 6xD Acyclovir % % 3-02 5 % 00:00: 00 Acyclovir 5 Acyclovir 5 2022-0 No 6xD Acyclovir % % 3-02 5 % 00:00: 00 Acyclovir 5 Acyclovir 5 2-0 No 6xD Acyclovir % % 3-02 5 % 00:00: 00 Acyclovir 5 Acyclovir 5 2-0 No 6xD Acyclovir % % 3-02 5 % 00:00: 00 Acyclovir 5 Acyclovir 5 2-0 No 6xD Acyclovir % % 3-02 5 % 00:00: 00 Acyclovir 5 Acyclovir 5 2-0 No 6xD Acyclovir % % 3-02 5 % 00:00: 00 Acyclovir 5 Acyclovir 5 2-0 No 6xD Acyclovir % % 3-02 5 % 00:00: 00 Acyclovir 5 Acyclovir 5 2-0 No 6xD Acyclovir % % 3-02 5 % 00:00: 00 Acyclovir 5 Acyclovir 5 2-0 No 6xD Acyclovir % % 3-02 5 % 00:00: 00 Acyclovir 5 Acyclovir 5 2-0 No 6xD Acyclovir % % 3-02 5 % 00:00: 00 Acyclovir 5 Acyclovir 5 2-0 No 6xD Acyclovir % % 3-02 5 % 00:00: 00 Acyclovir 5 Acyclovir 5 2-0 No 6xD Acyclovir % % 3-02 5 % 00:00: 00 Acyclovir 5 Acyclovir 5 2-0 No 6xD Acyclovir % % 3-02 5 % 00:00: 00 Acyclovir 5 Acyclovir 5 2-0 No 6xD Acyclovir % % 3-02 5 % 00:00: 00 Acyclovir 5 Acyclovir 5 2-0 No 6xD Acyclovir % % 3-02 5 % 00:00: 00 Acyclovir 5 Acyclovir 5 2021-0 No 6xD Acyclovir % % 3-02 5 % 00:00: 00 Acyclovir 5 Acyclovir 5 2021- No 6xD Acyclovir % % 3-02 5 % 00:00: 00 Cipro 500 Cipro 500 2020-08- No 1{table BID Cipro 500 MG MG 08-31 11-24 t} MG 00:00: 00:00 00 :00 valACYclovi valACYclovi 2020-08- No 1{table QD valACYclov r HCl 500 r HCl 500 0-25 11-13 t} ir HCl 500 MG MG 00:00: 00:00 MG 00 :00 valACYclovi valACYclovi 2020-08- No 1{table QD valACYclov r HCl 500 r HCl 500 0-25 11-13 t} ir HCl 500 MG MG 00:00: 00:00 MG 00 :00 valACYclovi valACYclovi 2020-08- No 1{table QD valACYclov r HCl 500 r HCl 500 0-25 11-13 t} ir HCl 500 MG MG 00:00: 00:00 MG 00 :00 valACYclovi valACYclovi 2020-08- No 1{table QD r HCl 500 r HCl 500 0-25 11-13 t} MG MG 00:00: 00:00 00 :00 Bactrim DS Bactrim DS 2020-08- No 1{table BID Bactrim DS 800-160 MG 800-160 MG 0-25 10-30 t} 800-160 MG 00:00: 00:00 00 :00 Estrace 0.1 Estrace 0.1 No Estrace MG/GM MG/GM 04-13 0.1 MG/GM 00:00: 00 Estrace 0.1 Estrace 0.1 No Estrace MG/GM MG/GM 04-13 0.1 MG/GM 00:00: 00 Estrace 0.1 Estrace 0.1 No Estrace MG/GM MG/GM 04-13 0.1 MG/GM 00:00: 00 Estrace 0.1 Estrace 0.1 No Estrace MG/GM MG/GM 04-13 0.1 MG/GM 00:00: 00 Estrace 0.1 Estrace 0.1 2020-0 No Estrace MG/GM MG/GM 04-13 0.1 MG/GM 00:00: 00 Estrace 0.1 Estrace 0.1 2020-0 No Estrace MG/GM MG/GM 04-13 0.1 MG/GM 00:00: 00 Estrace 0.1 Estrace 0.1 2020-0 No Estrace MG/GM MG/GM 04-13 0.1 MG/GM 00:00: 00 Estrace 0.1 Estrace 0.1 2020-0 No Estrace MG/GM MG/GM 04-13 0.1 MG/GM 00:00: 00 Estrace 0.1 Estrace 0.1 0 No Estrace MG/GM MG/GM 04-13 0.1 MG/GM 00:00: 00 Estrace 0.1 Estrace 0.1 2020-0 No MG/GM MG/GM 04-13 00:00: 00 Estrace 0.1 Estrace 0.1 2020-0 No Estrace MG/GM MG/GM 04-13 0.1 MG/GM 00:00: 00 Estrace 0.1 Estrace 0.1 0 No Estrace MG/GM MG/GM 04-13 0.1 MG/GM 00:00: 00 Estrace 0.1 Estrace 0.1 2020-0 No Estrace MG/GM MG/GM 04-13 0.1 MG/GM 00:00: 00 Estrace 0.1 Estrace 0.1 2020-0 No Estrace MG/GM MG/GM 04-13 0.1 MG/GM 00:00: 00 Estrace 0.1 Estrace 0.1 2020-0 No Estrace MG/GM MG/GM 04-13 0.1 MG/GM 00:00: 00 Estrace 0.1 Estrace 0.1 2020-0 No Estrace MG/GM MG/GM 04-13 0.1 MG/GM 00:00: 00 Estrace 0.1 Estrace 0.1 2020-0 No Estrace MG/GM MG/GM 04-13 0.1 MG/GM 00:00: 00 Estrace 0.1 Estrace 0.1 2020-0 No Estrace MG/GM MG/GM 04-13 0.1 MG/GM 00:00: 00 Estrace 0.1 Estrace 0.1 No Estrace MG/GM MG/GM 04-13 0.1 MG/GM 00:00: 00 Estrace 0.1 Estrace 0.1 No Estrace MG/GM MG/GM 04-13 0.1 MG/GM 00:00: 00 Estrace 0.1 Estrace 0.1 No Estrace MG/GM MG/GM 04-13 0.1 MG/GM 00:00: 00 Estrace 0.1 Estrace 0.1 No Estrace MG/GM MG/GM 04-13 0.1 MG/GM 00:00: 00 Estrace 0.1 Estrace 0.1 No Estrace MG/GM MG/GM 04-13 0.1 MG/GM 00:00: 00 Estrace 0.1 Estrace 0.1 No Estrace MG/GM MG/GM 04-13 0.1 MG/GM 00:00: 00 Estrace 0.1 Estrace 0.1 No Estrace MG/GM MG/GM 04-13 0.1 MG/GM 00:00: 00 Estrace 0.1 Estrace 0.1 No Estrace MG/GM MG/GM 04-13 0.1 MG/GM 00:00: 00 Estrace 0.1 Estrace 0.1 No Estrace MG/GM MG/GM 04-13 0.1 MG/GM 00:00: 00 Estrace 0.1 Estrace 0.1 No Estrace MG/GM MG/GM 04-13 0.1 MG/GM 00:00: 00 Estrace 0.1 Estrace 0.1 No Estrace MG/GM MG/GM 04-13 0.1 MG/GM 00:00: 00 estradioL Yes 2 gram per Un [facility]rew (ESTRACE) 04-13 vaginal ity of 0.01 % (0.1 00:00: [place] mg/gram) 00 Medical vaginal Branch cream Bactrim DS Bactrim DS 2020-0 2020- No 1{table BID Bactrim DS 800-160 MG 800-160 MG 9-01 09-11 t} 800-160 MG 00:00: 00:00 00 :00 Lancets - Lancets 2018-0 No Lancets - 3-28 00:00: 00 Blood Blood 2018-0 No Blood Glucose Glucose 3-28 Glucose Monitor Monitor 00:00: Monitor 00 Lancets - Lancets - 2019-0 No Lancets - 3-28 00:00: 00 Blood Blood 2018-0 No Blood Glucose Glucose 3-28 Glucose Monitor Monitor 00:00: Monitor 00 Lancets - Lancets 0 No Lancets - 3-28 00:00: 00 Blood Blood 2018-0 No Blood Glucose Glucose 3-28 Glucose Monitor Monitor 00:00: Monitor 00 Lancets - Lancets 0 No Lancets - 3-28 00:00: 00 Blood Blood 2018-0 No Blood Glucose Glucose 3-28 Glucose Monitor Monitor 00:00: Monitor Lancets - Lancets - 2019-0 No Lancets - 3-28 00:00: 00 Blood Blood 2018-0 No Blood Glucose Glucose 3-28 Glucose Monitor Monitor 00:00: Monitor 00 Blood Blood 2018-0 No Blood Glucose Glucose 3-28 Glucose Monitor Monitor 00:00: Monitor 00 Lancets - Lancets - 2018-0 No Lancets - 3-28 00:00: 00 Lancets - Lancets - 2019-0 No Lancets - 3-28 00:00: 00 Blood Blood 2018-0 No Blood Glucose Glucose 3-28 Glucose Monitor Monitor 00:00: Monitor Blood Blood 2018-0 No Blood Glucose Glucose 3-28 Glucose Monitor Monitor 00:00: Monitor Lancets - Lancets - 2018-0 No Lancets - 3-28 00:00: 00 Blood Blood 2018-0 No Blood Glucose Glucose 3-28 Glucose Monitor Monitor 00:00: Monitor Lancets - Lancets - 2018-0 No Lancets - 3-28 00:00: 00 Blood Blood 2018-0 No Glucose Glucose 3-28 Monitor Monitor 00:00: 00 Lancets - Lancets - 2019-0 No 3-28 00:00: 00 Blood Blood 2018-0 No Blood Glucose Glucose 3-28 Glucose Monitor Monitor 00:00: Monitor 00 Lancets - Lancets - 2019-0 No Lancets - 3-28 00:00: 00 Blood Blood 2018-0 No Blood Glucose Glucose 3-28 Glucose Monitor Monitor 00:00: Monitor 00 Lancets - Lancets - 2019-0 No Lancets - 3-28 00:00: 00 Blood Blood 2018-0 No Blood Glucose Glucose 3-28 Glucose Monitor Monitor 00:00: Monitor Lancets - Lancets - 2019-0 No Lancets - 3-28 00:00: 00 Blood Blood 2018-0 No Blood Glucose Glucose 3-28 Glucose Monitor Monitor 00:00: Monitor 00 Lancets - Lancets - 2019-0 No Lancets - 3-28 00:00: 00 Blood Blood 2018-0 No Blood Glucose Glucose 3-28 Glucose Monitor Monitor 00:00: Monitor 00 Lancets - Lancets - 2019-0 No Lancets - 3-28 00:00: 00 Blood Blood 2018-0 No Blood Glucose Glucose 3-28 Glucose Monitor Monitor 00:00: Monitor Lancets - Lancets - 2019-0 No Lancets - 3-28 00:00: 00 Lancets - Lancets - 2019-0 No Lancets - 3-28 00:00: 00 Blood Blood 2018-0 No Blood Glucose Glucose 3-28 Glucose Monitor Monitor 00:00: Monitor Lancets - Lancets - 2018-0 No Lancets - 3-28 00:00: 00 Blood Blood 2018-0 No Blood Glucose Glucose 3-28 Glucose Monitor Monitor 00:00: Monitor Lancets - Lancets - 2019-0 No Lancets - 3-28 00:00: 00 Blood Blood 2018-0 No Blood Glucose Glucose 3-28 Glucose Monitor Monitor 00:00: Monitor Lancets - Lancets - 2019-0 No Lancets - 3-28 00:00: 00 Blood Blood 2018-0 No Blood Glucose Glucose 3-28 Glucose Monitor Monitor 00:00: Monitor Blood Blood 2018-0 No Blood Glucose Glucose 3-28 Glucose Monitor Monitor 00:00: Monitor 00 Lancets - Lancets - 2019-0 No Lancets - 3-28 00:00: 00 Blood Blood 2019-0 No Blood Glucose Glucose 3-28 Glucose Monitor Monitor 00:00: Monitor 00 Lancets - Lancets - 2019-0 No Lancets - 3-28 00:00: 00 Blood Blood 2019-0 No Blood Glucose Glucose 3-28 Glucose Monitor Monitor 00:00: Monitor 00 Lancets - Lancets - 2019-0 No Lancets - 3-28 00:00: 00 Blood Blood 2019-0 No Blood Glucose Glucose 3-28 Glucose Monitor Monitor 00:00: Monitor 00 Lancets - Lancets - 2019-0 No Lancets - 3-28 00:00: 00 Blood Blood 2019-0 No Blood Glucose Glucose 3-28 Glucose Monitor Monitor 00:00: Monitor 00 Lancets - Lancets - 2019-0 No Lancets - 3-28 00:00: 00 Lancets - Lancets - 2019-0 No Lancets - 3-28 00:00: 00 Blood Blood 2019-0 No Blood Glucose Glucose 3-28 Glucose Monitor Monitor 00:00: Monitor 00 Lancets - Lancets - 2019-0 No Lancets - 3-28 00:00: 00 Blood Blood 2018-0 No Blood Glucose Glucose 3-28 Glucose Monitor Monitor 00:00: Monitor 00 Blood Blood 2018-0 No Blood Glucose Glucose 3-28 Glucose Monitor Monitor 00:00: Monitor 00 Lancets - Lancets - 2019-0 No Lancets - 3-28 00:00: 00 Blood Blood 2019-0 No Blood Glucose Glucose 3-28 Glucose Monitor Monitor 00:00: Monitor Lancets - Lancets - 20190 No Lancets - 3-28 00:00: 00 Pen Bryan Pen Bryan No Pen 32G X 4 MM 32G X 4 MM 1-17 Bryan 00:00: 32G X 4 MM 00 Pen Bryan Pen Bryan No Pen 32G X 4 MM 32G X 4 MM 1-17 Bryan 00:00: 32G X 4 MM 00 Pen Bryan Pen Bryan No Pen 32G X 4 MM 32G X 4 MM 1-17 Bryan 00:00: 32G X 4 MM 00 Pen Bryan Pen Bryan No Pen 32G X 4 MM 32G X 4 MM 1-17 Bryan 00:00: 32G X 4 MM 00 Pen Bryan Pen Bryan No Pen 32G X 4 MM 32G X 4 MM 1-17 Bryan 00:00: 32G X 4 MM 00 Pen Bryan Pen Bryan No Pen 32G X 4 MM 32G X 4 MM 1-17 Bryan 00:00: 32G X 4 MM 00 Pen Bryan Pen Bryan No Pen 32G X 4 MM 32G X 4 MM 1-17 Bryan 00:00: 32G X 4 MM 00 Pen Bryan Pen Bryan No Pen 32G X 4 MM 32G X 4 MM 1-17 Bryan 00:00: 32G X 4 MM 00 Pen Bryan Pen Bryan 0 No 32G X 4 MM 32G X 4 MM 1-17 00:00: 00 Pen Bryan Pen Bryan 0 No Pen 32G X 4 MM 32G X 4 MM 1-17 Bryan 00:00: 32G X 4 MM 00 Pen Bryan Pen Bryan 0 No Pen 32G X 4 MM 32G X 4 MM 1-17 Bryan 00:00: 32G X 4 MM 00 Pen Bryan Pen Bryan 0 No Pen 32G X 4 MM 32G X 4 MM 1-17 Bryan 00:00: 32G X 4 MM 00 Pen Bryan Pen Bryan 0 No Pen 32G X 4 MM 32G X 4 MM 1-17 Bryan 00:00: 32G X 4 MM 00 Pen Bryan Pen Bryan No Pen 32G X 4 MM 32G X 4 MM 17 Bryan 00:00: 32G X 4 MM 00 Pen Bryan Pen Bryan No Pen 32G X 4 MM 32G X 4 MM -17 Bryan 00:00: 32G X 4 MM 00 Pen Bryan Pen Bryan 0 No Pen 32G X 4 MM 32G X 4 MM -17 Bryan 00:00: 32G X 4 MM 00 Pen Bryan Pen Bryan 0 No Pen 32G X 4 MM 32G X 4 MM -17 Bryan 00:00: 32G X 4 MM 00 Pen [place] Pen [place] 0 No Pen 32G X 4 MM 32G X 4 MM -17 [place] 00:00: 32G X 4 MM 00 Pen [place] Pen [place] 0 No Pen 32G X 4 MM 32G X 4 MM -17 [place] 00:00: 32G X 4 MM 00 Pen [place] Pen [place] 0 No Pen 32G X 4 MM 32G X 4 MM -17 [place] 00:00: 32G X 4 MM 00 Pen [place] Pen [place] 2018-0 No Pen 32G X 4 MM 32G X 4 MM 1-17 [place] 00:00: 32G X 4 MM 00 Pen [place] Pen [place] 0 No Pen 32G X 4 MM 32G X 4 MM 1-17 [place] 00:00: 32G X 4 MM 00 Pen [place] Pen [place] 0 No Pen 32G X 4 MM 32G X 4 MM 1-17 [place] 00:00: 32G X 4 MM 00 Pen [place] Pen [place] 2019-0 No Pen 32G X 4 MM 32G X 4 MM 1-17 [place] 00:00: 32G X 4 MM 00 Pen [place] Pen [place] 2018-0 No Pen 32G X 4 MM 32G X 4 MM -17 [place] 00:00: 32G X 4 MM 00 Pen [place] Pen [place] 2018-0 No Pen 32G X 4 MM 32G X 4 MM -17 [place] 00:00: 32G X 4 MM 00 Pen [place] Pen [place] 2018-0 No Pen 32G X 4 MM 32G X 4 MM 17 [place] 00:00: 32G X 4 MM 00 Pen [place] Pen [place] 2018-0 No Pen 32G X 4 MM 32G X 4 MM 17 [place] 00:00: 32G X 4 MM 00 Pen [place] Pen [place] 2018-0 No Pen 32G X 4 MM 32G X 4 MM 17 [place] 00:00: 32G X 4 MM 00 metoprolol 2017-0 Yes [id number] 12.5mg Take 0.5 [facility] tartrate 25 3-06 tablets by it y of mg tablet 00:00: mouth (two) Medical times Branch daily. metoprolol 2017-0 Yes [id number] 12.5mg Take 0.5 [facility] tartrate 25 3-06 tablets by it y of mg tablet 00:00: mouth ([facility]) Medical times Branch daily. metoprolol 2018-0 Yes [id number] 12.5mg Take 0.5 [facility] tartrate 25 3-06 tablets by it y of mg tablet 00:00: mouth (two) Medical times Branch daily. metoprolol 2018-0 Yes [id number] 12.5mg Take 0.5 [facility] tartrate 25 3-06 tablets by it y of mg tablet 00:00: mouth (two) Medical times Branch daily. metoprolol 2018-0 Yes [id number] 12.5mg Take 0.5 [facility] tartrate 25 3-06 tablets by it y of mg tablet 00:00: mouth (two) Medical times Branch daily. metoprolol 2018-0 Yes [id number] 12.5mg Take 0.5 [facility] tartrate 25 3-06 tablets by it y of mg tablet 00:00: mouth (two) Medical times Branch daily. metoprolol 2018-0 Yes [id number] 12.5mg Take 0.5 [facility] tartrate 25 3-06 tablets by it y of mg tablet 00:00: mouth 2 (two) Medical times Branch daily. metoprolol 2018-0 Yes [id number] 12.5mg Take 0.5 [facility] tartrate 25 3-06 tablets by it y of mg tablet 00:00: mouth 2 [place] (two) Medical times Branch daily. metoprolol 2018-0 Yes [id number] 12.5mg Take 0.5 [facility] tartrate 25 3-06 tablets by it y of mg tablet 00:00: mouth 2 (two) Medical times Branch daily. metoprolol 2018-0 Yes [id number] 12.5mg Take 0.5 [facility] tartrate 25 3-06 tablets by it y of mg tablet 00:00: mouth (two) Medical times Branch daily. metoprolol 2018-0 Yes [id number] 12.5mg Take 0.5 [facility] tartrate 25 3-06 tablets by it y of mg tablet 00:00: mouth 2 (two) Medical times Branch daily. metoprolol 2017-0 Yes [id number] 12.5mg Take 0.5 [facility] tartrate 25 3-06 tablets by it y of mg tablet 00:00: mouth (two) Medical times Branch daily. colchicine 2018-0 Yes .6mg Take 1 [facility] rs (COLCRYS) 1-01 tablet by ity o f 0.6 mg 00:00: mouth [place] tablet 00 daily. Medical Branch colchicine 2018-0 Yes .6mg Take 1 [facility] (COLCRYS) 1-01 tablet by ity o f 0.6 mg 00:00: mouth [place] tablet 00 daily. Medical Branch colchicine 2018-0 Yes .6mg Take 1 [facility] (COLCRYS) 1-01 tablet by ity o f 0.6 mg 00:00: mouth [place] tablet 00 daily. Medical Branch colchicine 2018-0 Yes .6mg Take 1 [facility] (COLCRYS) 1-01 tablet by ity o f 0.6 mg 00:00: mouth [place] tablet 00 daily. Medical Branch colchicine 2018-0 Yes .6mg Take 1 [facility] (COLCRYS) 1-01 tablet by ity o f 0.6 mg 00:00: mouth [place] tablet 00 daily. Medical Branch colchicine 2018-0 Yes .6mg Take 1 [facility] (COLCRYS) 1-01 tablet by ity o f 0.6 mg 00:00: mouth [place] tablet 00 daily. Medical Branch colchicine 2018-0 Yes .6mg Take 1 [facility] (COLCRYS) 1-01 tablet by ity o f 0.6 mg 00:00: mouth [place] tablet 00 daily. Medical Branch colchicine 2018-0 Yes .6mg Take 1 [facility] (COLCRYS) 1-01 tablet by ity o f 0.6 mg 00:00: mouth [place] tablet 00 daily. Medical Branch colchicine 2018-0 Yes .6mg Take 1 [facility] (COLCRYS) 1-01 tablet by ity o f 0.6 mg 00:00: mouth [place] tablet 00 daily. Medical Branch colchicine 2017-0 Yes .6mg Take 1 [facility] rs (COLCRYS) 1-01 tablet by ity o f 0.6 mg 00:00: mouth [place] tablet 00 daily. Medical Branch colchicine 2017-0 Yes .6mg Take 1 [facility] rs (COLCRYS) 1-01 tablet by ity o f 0.6 mg 00:00: mouth [place] tablet 00 daily. Medical Branch colchicine 0 Yes .6mg Take 1 [facility] (COLCRYS) 1-01 tablet by ity o f 0.6 mg 00:00: mouth [place] tablet 00 daily. Medical Branch SUCRALFATE 2017-0 Yes [id number] TAKE ONE [facility] 1 gram 8-21 TABLET BY ity of tablet 00:00: MOUTH [place] 00 BEFORE Medical MEALS AND Branch AT BEDTIME SUCRALFATE 2017-0 Yes [id number] TAKE ONE [facility] 1 gram 8-21 TABLET BY ity of tablet 00:00: MOUTH [place] 00 BEFORE Medical MEALS AND Branch AT BEDTIME SUCRALFATE 2017-0 Yes [id number] TAKE ONE [facility] 1 gram 8-21 TABLET BY ity of tablet 00:00: MOUTH [place] 00 BEFORE Medical MEALS AND Branch AT BEDTIME SUCRALFATE 2017-0 Yes [id number] TAKE ONE [facility] 1 gram 8-21 TABLET BY ity of tablet 00:00: MOUTH [place] 00 BEFORE Medical MEALS AND Branch AT BEDTIME SUCRALFATE 2017-0 Yes [id number] TAKE ONE [facility] 1 gram 8-21 TABLET BY ity of tablet 00:00: MOUTH [place] 00 BEFORE Medical MEALS AND Branch AT BEDTIME SUCRALFATE 2017-0 Yes [id number] TAKE ONE [facility] 1 gram 8-21 TABLET BY ity of tablet 00:00: MOUTH [place] 00 BEFORE Medical MEALS AND Branch AT BEDTIME SUCRALFATE 20170 Yes [id number] TAKE ONE [facility] 1 gram 8-21 TABLET BY ity of tablet 00:00: MOUTH [place] 00 BEFORE Medical MEALS AND Branch AT BEDTIME SUCRALFATE 2017-0 Yes [id number] TAKE ONE [facility] 1 gram 8-21 TABLET BY ity of tablet 00:00: MOUTH [place] 00 BEFORE Medical MEALS AND Branch AT BEDTIME SUCRALFATE Yes [id number] TAKE ONE [facility] 1 gram 8-21 TABLET BY ity of tablet 00:00: MOUTH [place] 00 BEFORE Medical MEALS AND Branch AT BEDTIME SUCRALFATE Yes [id number] TAKE ONE [facility] 1 gram 8-21 TABLET BY ity of tablet 00:00: MOUTH [place] 00 BEFORE Medical MEALS AND Branch AT BEDTIME SUCRALFATE 0 Yes [id number] TAKE ONE [facility] 1 gram 8-21 TABLET BY ity of tablet 00:00: MOUTH [place] 00 BEFORE Medical MEALS AND Branch AT BEDTIME SUCRALFATE Yes [id number] TAKE ONE [facility] 1 gram 8-21 TABLET BY ity of tablet 00:00: MOUTH [place] 00 BEFORE Medical MEALS AND Branch AT BEDTIME Blood-Gluco Yes Use as Univ ers se Meter 6-19 directed, ity of (FREESTYLE 00:00: DX:E11.9 Reese as LITE METER) 00 Medical Kit Branch blood sugar Yes Use as Univ ers diagnostic 6-19 directed, ity of (FREESTYLE 00:00: BID, [place] LITE 00 Dx;E11.9 Medical STRIPS) Branch strip Blood-Gluco Yes Use as Univ ers se Meter 6-19 directed, ity of (FREESTYLE 00:00: DX:E11.9 Reese as LITE METER) 00 Medical Kit Branch blood sugar Yes Use as Univ ers diagnostic 6-19 directed, ity of (FREESTYLE 00:00: BID, [place] LITE 00 Dx;E11.9 Medical STRIPS) Branch strip Blood-Gluco Yes Use as Univ ers se Meter 6-19 directed, ity of (FREESTYLE 00:00: DX:E11.9 Reese as LITE METER) 00 Medical Kit Branch blood sugar Yes Use as Univ ers diagnostic 6-19 directed, ity of (FREESTYLE 00:00: BID, [place] LITE 00 Dx;E11.9 Medical STRIPS) Branch strip Blood-Gluco Yes Use as Univ ers se Meter 6-19 directed, ity of (FREESTYLE 00:00: DX:E11.9 Reese as LITE METER) 00 Medical Kit Branch blood sugar Yes Use as Univ ers diagnostic 6-19 directed, ity of (FREESTYLE 00:00: BID, [place] LITE 00 Dx;E11.9 Medical STRIPS) Branch strip Blood-Gluco Yes Use as Univ ers se Meter 6-19 directed, ity of (FREESTYLE 00:00: DX:E11.9 Reese as LITE METER) 00 Medical Kit Branch blood sugar Yes Use as Univ ers diagnostic 6-19 directed, ity of (FREESTYLE 00:00: BID, [place] LITE 00 Dx;E11.9 Medical STRIPS) Branch strip Blood-Gluco Yes Use as Univ ers se Meter 6-19 directed, ity of (FREESTYLE 00:00: DX:E11.9 Reese as LITE METER) 00 Medical Kit Branch blood sugar Yes Use as Univ ers diagnostic 6-19 directed, ity of (FREESTYLE 00:00: BID, [place] LITE 00 Dx;E11.9 Medical STRIPS) Branch strip Blood-Gluco Yes Use as Univ ers se Meter 6-19 directed, ity of (FREESTYLE 00:00: DX:E11.9 Reese as LITE METER) 00 Medical Kit Branch blood sugar Yes Use as Univ ers diagnostic 6-19 directed, ity of (FREESTYLE 00:00: BID, [place] LITE 00 Dx;E11.9 Medical STRIPS) Branch strip Blood-Gluco Yes Use as Univ ers se Meter 6-19 directed, ity of (FREESTYLE 00:00: DX:E11.9 Reese as LITE METER) 00 Medical Kit Branch blood sugar Yes Use as Univ ers diagnostic 6-19 directed, ity of (FREESTYLE 00:00: BID, [place] LITE 00 Dx;E11.9 Medical STRIPS) Branch strip Blood-Gluco Yes Use as Univ ers se Meter 6-19 directed, ity of (FREESTYLE 00:00: DX:E11.9 Reese as LITE METER) 00 Medical Kit Branch blood sugar Yes Use as Univ ers diagnostic 6-19 directed, ity of (FREESTYLE 00:00: BID, [place] LITE 00 Dx;E11.9 Medical STRIPS) Branch strip Blood-Gluco Yes Use as Univ ers se Meter 6-19 directed, ity of (FREESTYLE 00:00: DX:E11.9 Reese as LITE METER) 00 Medical Kit Branch blood sugar Yes Use as Univ ers diagnostic 6-19 directed, ity of (FREESTYLE 00:00: BID, [place] LITE 00 Dx;E11.9 Medical STRIPS) Branch strip Blood-Gluco Yes Use as Univ ers se Meter 6-19 directed, ity of (FREESTYLE 00:00: DX:E11.9 Reese as LITE METER) 00 Medical Kit Branch blood sugar Yes Use as Univ ers diagnostic 6-19 directed, ity of (FREESTYLE 00:00: BID, [place] LITE 00 Dx;E11.9 Medical STRIPS) Branch strip Blood-Gluco Yes Use as Univ ers se Meter 6-19 directed, ity of (FREESTYLE 00:00: DX:E11.9 Reese as LITE METER) 00 Medical Kit Branch blood sugar Yes Use as Univ ers diagnostic 6-19 directed, ity of (FREESTYLE 00:00: BID, [place] LITE 00 Dx;E11.9 Medical STRIPS) Branch strip glimepiride Yes [id number] 1mg Take 1 [facility] 1 mg tablet 6-12 tablet by ity of 00:00: mouth [place] 00 daily with Medical breakfast. Branch glimepiride Yes [id number] 1mg Take 1 [facility] 1 mg tablet 6-12 tablet by ity of 00:00: mouth [place] 00 daily with Medical breakfast. Branch glimepiride Yes [id number] 1mg Take 1 [facility] 1 mg tablet 6-12 tablet by ity of 00:00: mouth [place] 00 daily with Medical breakfast. Branch glimepiride Yes [id number] 1mg Take 1 [facility] 1 mg tablet 6-12 tablet by ity of 00:00: mouth [place] 00 daily with Medical breakfast. Branch glimepiride 2017-0 Yes [id number] 1mg Take 1 [facility] 1 mg tablet 6-12 tablet by ity of 00:00: mouth [place] 00 daily with Medical breakfast. Branch glimepiride 2016-0 Yes [id number] 1mg Take 1 [facility] 1 mg tablet 6-12 tablet by ity of 00:00: mouth [place] 00 daily with Medical breakfast. Branch glimepiride 2016-0 Yes [id number] 1mg Take 1 [facility] 1 mg tablet 6-12 tablet by ity of 00:00: mouth [place] 00 daily with Medical breakfast. Branch glimepiride 2016-0 Yes [id number] 1mg Take 1 [facility] 1 mg tablet 6-12 tablet by ity of 00:00: mouth [place] 00 daily with Medical breakfast. Branch glimepiride 2016-0 Yes [id number] 1mg Take 1 [facility] 1 mg tablet 6-12 tablet by ity of 00:00: mouth [place] 00 daily with Medical breakfast. Branch glimepiride 2016-0 Yes [id number] 1mg Take 1 [facility] 1 mg tablet 6-12 tablet by ity of 00:00: mouth [place] 00 daily with Medical breakfast. Branch glimepiride 2016-0 Yes [id number] 1mg Take 1 [facility] 1 mg tablet 6-12 tablet by ity of 00:00: mouth [place] 00 daily with Medical breakfast. Branch glimepiride 2016-0 Yes [id number] 1mg Take 1 [facility] 1 mg tablet 6-12 tablet by ity of 00:00: mouth [place] 00 daily with Medical breakfast. Branch traMADOL Yes 50mg Take 1 [facility] (ULTRAM) 50 2-19 tablet by ity of mg tablet 00:00: mouth [place] 00 every 6 Medical (six) Branch hours as needed for Pain (scale 4-6). Davin Bowling PA-C / Eliel Bejarano MD JOLANTA# [id number] DPS# [id number] x Lic.# [id number] NPI# [id number] traMADOL 2017-0 Yes 50mg Take 1 [facility] (ULTRAM) 50 2-19 tablet by ity of mg tablet 00:00: mouth [place] 00 every 6 Medical (six) Branch hours as needed for Pain (scale 4-6). Davin Bowling PA-C / Eliel Bejarano MD [place]# [id number] DPS# [id number] x Lic.# [id number] NPI# [id number] traMADOL 2017-0 Yes 50mg Take 1 [facility] (ULTRAM) 50 2-19 tablet by ity of mg tablet 00:00: mouth [place] 00 every 6 Medical (six) Branch hours as needed for Pain (scale 4-6). Davin Bowling PA-C / Eliel Bejarano MD [place]# [id number] DPS# [id number] x Lic.# [id number] NPI# [id number] traMADOL 2017-0 Yes 50mg Take 1 [facility] (ULTRAM) 50 2-19 tablet by ity of mg tablet 00:00: mouth [place] 00 every 6 Medical (six) Branch hours as needed for Pain (scale 4-6). Davin Bowling PA-C / Eliel Bejarano MD [place]# [id number] DPS# [id number] x Lic.# [id number] NPI# [id number] traMADOL 2017-0 Yes 50mg Take 1 [facility] (ULTRAM) 50 2-19 tablet by ity of mg tablet 00:00: mouth [place] 00 every 6 Medical (six) Branch hours as needed for Pain (scale 4-6). Davin Bowling PA-C / Eliel Bejarano MD [place]# [id number] DPS# [id number] x Lic.# [id number] NPI# [id number] traMADOL 2017-0 Yes 50mg Take 1 [facility] (ULTRAM) 50 2-19 tablet by ity of mg tablet 00:00: mouth [place] 00 every 6 Medical (six) Branch hours as needed for Pain (scale 4-6). Davin Bowling PA-C / Eliel Bejarano MD [place]# [id number] DPS# [id number] x Lic.# [id number] NPI# [id number] traMADOL 2017-0 Yes 50mg Take 1 [facility] (ULTRAM) 50 2-19 tablet by ity of mg tablet 00:00: mouth [place] 00 every 6 Medical (six) Branch hours as needed for Pain (scale 4-6). Davin Bowling PA-C / Eliel Bejarano MD [place]# [id number] DPS# [id number] x Lic.# [id number] NPI# [id number] traMADOL 2017-0 Yes 50mg Take 1 [facility] (ULTRAM) 50 2-19 tablet by ity of mg tablet 00:00: mouth [place] 00 every 6 Medical (six) Branch hours as needed for Pain (scale 4-6). Davin Bowling PA-C / Eliel Bejarano MD [place]# [id number] DPS# [id number] x Lic.# [id number] NPI# [id number] traMADOL 2017-0 Yes 50mg Take 1 [facility] (ULTRAM) 50 2-19 tablet by ity of mg tablet 00:00: mouth [place] 00 every 6 Medical (six) Branch hours as needed for Pain (scale 4-6). Davin Bowling PA-C / Eliel Bejarano MD [place]# [id number] DPS# [id number] x Lic.# [id number] NPI# [id number] traMADOL 2017-0 Yes 50mg Take 1 [facility] (ULTRAM) 50 2-19 tablet by ity of mg tablet 00:00: mouth [place] 00 every 6 Medical (six) Branch hours as needed for Pain (scale 4-6). Davin Bowling PA-C / Eliel Bejarano MD [place]# [id number] DPS# [id number] x Lic.# [id number] NPI# [id number] traMADOL 2017-0 Yes 50mg Take 1 [facility] (ULTRAM) 50 2-19 tablet by ity of mg tablet 00:00: mouth [place] 00 every 6 Medical (six) Branch hours as needed for Pain (scale 4-6). Davin Bowling PA-C / Eliel Bejarano MD [place]# [id number] DPS# [id number] x Lic.# [id number] NPI# [id number] traMADOL 2017-0 Yes 50mg Take 1 [facility] (ULTRAM) 50 2-19 tablet by ity of mg tablet 00:00: mouth [place] 00 every 6 Medical (six) Branch hours as needed for Pain (scale 4-6). Davin Bowling PA-C / Eliel Bejarano MD [place]# [id number] DPS# [id number] x Lic.# [id number] NPI# [id number] lisinopril 2016- Yes [id number] 5mg Take 1 U nivers (PRINIVIL,Z 0-05 tablet by ity of ESTRIL) 5 00:00: mouth [place] mg tablet 00 daily. Medical Branch allopurinol 2015-08 Yes [id number] 200mg Take 2 [facility] (ZYLOPRIM) 0-05 tablets by ity of 100 mg 00:00: mouth [place] tablet 00 daily. Medical Branch lovastatin 2015-08 Yes [id number] 40mg Take 2 [facility] n[facility] (MEVACOR) 0-05 tablets by ity of 20 mg 00:00: mouth at [place] tablet 00 bedtime. Medical Branch lisinopril 2015-08 Yes [id number] 5mg Take 1 U nivers (PRINIVIL,Z 0-05 tablet by ity of ESTRIL) 5 00:00: mouth [place] mg tablet 00 daily. Medical Branch allopurinol 2015-08 Yes [id number] 200mg Take 2 [facility] (ZYLOPRIM) 0-05 tablets by ity of 100 mg 00:00: mouth [place] tablet 00 daily. Medical Branch lovastatin 2015-08 Yes [id number] 40mg Take 2 [facility] nivers (MEVACOR) 0-05 tablets by ity of 20 mg 00:00: mouth at [place] tablet 00 bedtime. Medical Branch lisinopril 2015-08 Yes [id number] 5mg Take 1 U nivers (PRINIVIL,Z 0-05 tablet by ity of ESTRIL) 5 00:00: mouth [place] mg tablet 00 daily. Medical Branch allopurinol 2015-08 Yes [id number] 200mg Take 2 [facility] (ZYLOPRIM) 0-05 tablets by ity of 100 mg 00:00: mouth [place] tablet 00 daily. Medical Branch lovastatin 2015-08 Yes [id number] 40mg Take 2 [facility] nivers (MEVACOR) 0-05 tablets by ity of 20 mg 00:00: mouth at [place] tablet 00 bedtime. Medical Branch lisinopril 2015-08 Yes [id number] 5mg Take 1 [facility] nivers (PRINIVIL,Z 0-05 tablet by ity of ESTRIL) 5 00:00: mouth [place] mg tablet 00 daily. Medical Branch allopurinol 2015-08 Yes [id number] 200mg Take 2 [facility] (ZYLOPRIM) 0-05 tablets by ity of 100 mg 00:00: mouth [place] tablet 00 daily. Medical Branch lovastatin 2015-08 Yes [id number] 40mg Take 2 U nivers (MEVACOR) 0-05 tablets by ity of 20 mg 00:00: mouth at [place] tablet 00 bedtime. Medical Branch lisinopril 2015-08 Yes [id number] 5mg Take 1 [facility] n[facility] (PRINIVIL,Z 0-05 tablet by ity of ESTRIL) 5 00:00: mouth [place] mg tablet 00 daily. Medical Branch allopurinol 2015-08 Yes [id number] 200mg Take 2 [facility] (ZYLOPRIM) 0-05 tablets by ity of 100 mg 00:00: mouth [place] tablet 00 daily. Medical Branch lovastatin 2015-08 Yes [id number] 40mg Take 2 U nivers (MEVACOR) 0-05 tablets by ity of 20 mg 00:00: mouth at [place] tablet 00 bedtime. Medical Branch lisinopril 2015-08 Yes [id number] 5mg Take 1 [facility] nivers (PRINIVIL,Z 0-05 tablet by ity of ESTRIL) 5 00:00: mouth [place] mg tablet 00 daily. Medical Branch allopurinol 2015-08 Yes [id number] 200mg Take 2 [facility] (ZYLOPRIM) 0-05 tablets by ity of 100 mg 00:00: mouth [place] tablet 00 daily. Medical Branch lovastatin 2015-08 Yes [id number] 40mg Take 2 U nivers (MEVACOR) 0-05 tablets by ity of 20 mg 00:00: mouth at [place] tablet 00 bedtime. Medical Branch lisinopril 2015-08 Yes [id number] 5mg Take 1 U nivers (PRINIVIL,Z 0-05 tablet by ity of ESTRIL) 5 00:00: mouth [place] mg tablet 00 daily. Medical Branch allopurinol 2015-08 Yes [id number] 200mg Take 2 [facility] (ZYLOPRIM) 0-05 tablets by ity of 100 mg 00:00: mouth [place] tablet 00 daily. Medical Branch lovastatin 2015-08 Yes [id number] 40mg Take 2 [facility] nivers (MEVACOR) 0-05 tablets by ity of 20 mg 00:00: mouth at [place] tablet 00 bedtime. Medical Branch lisinopril 2015-08 Yes [id number] 5mg Take 1 U nivers (PRINIVIL,Z 0-05 tablet by ity of ESTRIL) 5 00:00: mouth [place] mg tablet 00 daily. Medical Branch allopurinol 2015-08 Yes [id number] 200mg Take 2 [facility] (ZYLOPRIM) 0-05 tablets by ity of 100 mg 00:00: mouth [place] tablet 00 daily. Medical Branch lovastatin 2015-08 Yes [id number] 40mg Take 2 [facility] nivers (MEVACOR) 0-05 tablets by ity of 20 mg 00:00: mouth at [place] tablet 00 bedtime. Medical Branch lisinopril 2015-08 Yes [id number] 5mg Take 1 U nivers (PRINIVIL,Z 0-05 tablet by ity of ESTRIL) 5 00:00: mouth [place] mg tablet 00 daily. Medical Branch allopurinol 2015-08 Yes [id number] 200mg Take 2 [facility] (ZYLOPRIM) 0-05 tablets by ity of 100 mg 00:00: mouth [place] tablet 00 daily. Medical Branch lovastatin 2015-08 Yes [id number] 40mg Take 2 U nivers (MEVACOR) 0-05 tablets by ity of 20 mg 00:00: mouth at [place] tablet 00 bedtime. Medical Branch lisinopril 2015-08 Yes [id number] 5mg Take 1 U nivers (PRINIVIL,Z 0-05 tablet by ity of ESTRIL) 5 00:00: mouth [place] mg tablet 00 daily. Medical Branch allopurinol 2015-08 Yes [id number] 200mg Take 2 [facility] (ZYLOPRIM) 0-05 tablets by ity of 100 mg 00:00: mouth [place] tablet 00 daily. Medical Branch lovastatin 2015-08 Yes [id number] 40mg Take 2 [facility] nivers (MEVACOR) 0-05 tablets by ity of 20 mg 00:00: mouth at [place] tablet 00 bedtime. Medical Branch lisinopril 2015-08 Yes [id number] 5mg Take 1 [facility] nivers (PRINIVIL,Z 0-05 tablet by ity of ESTRIL) 5 00:00: mouth [place] mg tablet 00 daily. Medical Branch allopurinol 2015-08 Yes [id number] 200mg Take 2 [facility] (ZYLOPRIM) 0-05 tablets by ity of 100 mg 00:00: mouth [place] tablet 00 daily. Medical Branch lovastatin 2015-08 Yes [id number] 40mg Take 2 U nivers (MEVACOR) 0-05 tablets by ity of 20 mg 00:00: mouth at [place] tablet 00 bedtime. Medical Branch lisinopril 2015-08 Yes [id number] 5mg Take 1 U nivers (PRINIVIL,Z 0-05 tablet by ity of ESTRIL) 5 00:00: mouth [place] mg tablet 00 daily. Medical Branch allopurinol 2016- Yes [id number] 200mg Take 2 [facility] (ZYLOPRIM) 0-05 tablets by ity of 100 mg 00:00: mouth [place] tablet 00 daily. Medical Branch lovastatin 2016- Yes [id number] 40mg Take 2 [facility] n[facility] (MEVACOR) 0-05 tablets by ity of 20 mg 00:00: mouth at [place] tablet 00 bedtime. Medical Branch nitroglycer 2016-[address] 1 [facility] vers in 7-27 tablet ity of (NITROSTAT) 00:00: under the [place] 0.4 mg 00 tongue Medical sublingual every 5 Branch tablet (five) minutes as needed for Chest pain. nitroglycer 2016-[address] 1 [facility] vers in 7-27 tablet ity of (NITROSTAT) 00:00: under the [place] 0.4 mg 00 tongue Medical sublingual every 5 Branch tablet (five) minutes as needed for Chest pain. nitroglycer 2016-[address] 1 [facility] vers in 7-27 tablet ity of (NITROSTAT) 00:00: under the [place] 0.4 mg 00 tongue Medical sublingual every 5 Branch tablet (five) minutes as needed for Chest pain. nitroglycer 2016-[address] 1 [facility] vers in 7-27 tablet ity of (NITROSTAT) 00:00: under the [place] 0.4 mg 00 tongue Medical sublingual every 5 Branch tablet (five) minutes as needed for Chest pain. nitroglycer 2016-[address] 1 [facility] vers in 7-27 tablet ity of (NITROSTAT) 00:00: under the [place] 0.4 mg 00 tongue Medical sublingual every 5 Branch tablet (five) minutes as needed for Chest pain. nitroglycer 2016-[address] 1 [facility] vers in 7-27 tablet ity of (NITROSTAT) 00:00: under the [place] 0.4 mg 00 tongue Medical sublingual every 5 Branch tablet (five) minutes as needed for Chest pain. nitroglycer 2016-[address] 1 [facility] vers in 7-27 tablet ity of (NITROSTAT) 00:00: under the [place] 0.4 mg 00 tongue Medical sublingual every 5 Branch tablet (five) minutes as needed for Chest pain. nitroglycer 2016-[address] 1 [facility] vers in 727 tablet ity of (NITROSTAT) 00:00: under the [place] 0.4 mg 00 tongue Medical sublingual every 5 Branch tablet (five) minutes as needed for Chest pain. nitroglycer 2016-[address] 1 [facility] vers in 727 tablet ity of (NITROSTAT) 00:00: under the [place] 0.4 mg 00 tongue Medical sublingual every 5 Branch tablet (five) minutes as needed for Chest pain. nitroglycer 2016-[address] 1 [facility] vers in 727 tablet ity of (NITROSTAT) 00:00: under the [place] 0.4 mg 00 tongue Medical sublingual every 5 Branch tablet (five) minutes as needed for Chest pain. nitroglycer 2016-[address] 1 [facility] vers in 727 tablet ity of (NITROSTAT) 00:00: under the [place] 0.4 mg 00 tongue Medical sublingual every 5 Branch tablet (five) minutes as needed for Chest pain. nitroglycer 2016-[address] 1 [facility] vers in 7 tablet ity of (NITROSTAT) 00:00: under the [place] 0.4 mg 00 tongue Medical sublingual every 5 Branch tablet (five) minutes as needed for Chest pain. acetaminoph 2015-0 Yes 1{tbl} Take 1 [facility] en-codeine 5-31 tablet by ity of (TYLENOL 00:00: mouth at [place] #3) 300-30 00 bedtime. Medic al mg tablet Branch acetaminoph 2015-0 Yes 1{tbl} Take 1 [facility] en-codeine 5-31 tablet by ity of (TYLENOL 00:00: mouth at [place] #3) 300-30 00 bedtime. Medic al mg tablet Branch acetaminoph 2016-0 Yes 1{tbl} Take 1 [facility] en-codeine 5-31 tablet by ity of (TYLENOL 00:00: mouth at [place] #3) 300-30 00 bedtime. Medic al mg tablet Branch acetaminoph 2015-0 Yes 1{tbl} Take 1 [facility] en-codeine 5-31 tablet by ity of (TYLENOL 00:00: mouth at [place] #3) 300-30 00 bedtime. Medic al mg tablet Branch acetaminoph Yes 1{tbl} Take 1 [facility] en-codeine 5-31 tablet by ity of (TYLENOL 00:00: mouth at [place] #3) 300-30 00 bedtime. Medic al mg tablet Branch acetaminoph Yes 1{tbl} Take 1 [facility] en-codeine 5-31 tablet by ity of (TYLENOL 00:00: mouth at [facility]) 300-30 00 bedtime. Medic al mg tablet Branch acetaminoph Yes 1{tbl} Take 1 Un [facility] en-codeine 5-31 tablet by ity of (TYLENOL 00:00: mouth at [facility]) 300-30 00 bedtime. Medic al mg tablet Branch acetaminoph Yes 1{tbl} Take 1 Un [facility] en-codeine 5-31 tablet by ity of (TYLENOL 00:00: mouth at [facility]) 300-30 00 bedtime. Medic al mg tablet Branch acetaminoph Yes 1{tbl} Take 1 Un [facility] en-codeine 5-31 tablet by ity of (TYLENOL 00:00: mouth at [facility]) 300-30 00 bedtime. Medic al mg tablet Branch acetaminoph Yes 1{tbl} Take 1 Un andrew en-codeine 5-31 tablet by ity of (TYLENOL 00:00: mouth at [facility]) 300-30 00 bedtime. Medic al mg tablet Branch acetaminoph Yes 1{tbl} Take 1 [facility] en-codeine 5-31 tablet by ity of (TYLENOL 00:00: mouth at [place] #3) 300-30 00 bedtime. Medic al mg tablet Branch acetaminoph Yes 1{tbl} Take 1 Un [facility] en-codeine 5-31 tablet by ity of (TYLENOL 00:00: mouth at [facility]) 300-30 00 bedtime. Medic al mg tablet Branch chlorhexidi Yes [id number] 15mL [facility] ne 5-16 spit out ity of (PERIDEX) 00:00: 15 mL 2 [place] 0.12 % 00 (two) Medical mouthwash times Branch daily. chlorhexidi 2016-0 Yes [id number] 15mL [facility] ne 5-16 spit out ity of (PERIDEX) 00:00: 15 mL 2 [place] 0.12 % 00 (two) Medical mouthwash times Branch daily. chlorhexidi 2016-0 Yes [id number] 15mL [facility] ne 5-16 spit out ity of (PERIDEX) 00:00: 15 mL 2 [place] 0.12 % 00 (two) Medical mouthwash times Branch daily. chlorhexidi 2016-0 Yes [id number] 15mL [facility] ne 5-16 spit out ity of (PERIDEX) 00:00: 15 mL 2 [place] 0.12 % 00 (two) Medical mouthwash times Branch daily. chlorhexidi 2016-0 Yes [id number] 15mL [facility] ne 5-16 spit out ity of (PERIDEX) 00:00: 15 mL 2 [place] 0.12 % 00 (two) Medical mouthwash times Branch daily. chlorhexidi 2016-0 Yes [id number] 15mL [facility] ne 5-16 spit out ity of (PERIDEX) 00:00: 15 mL 2 [place] 0.12 % 00 (two) Medical mouthwash times Branch daily. chlorhexidi 2016-0 Yes [id number] 15mL [facility] ne 5-16 spit out ity of (PERIDEX) 00:00: 15 mL 2 [place] 0.12 % 00 (two) Medical mouthwash times Branch daily. chlorhexidi 2016-0 Yes [id number] 15mL [facility] ne 5-16 spit out ity of (PERIDEX) 00:00: 15 mL 2 [place] 0.12 % 00 (two) Medical mouthwash times Branch daily. chlorhexidi 2016-0 Yes [id number] 15mL [facility] ne 5-16 spit out ity of (PERIDEX) 00:00: 15 mL 2 [place] 0.12 % 00 (two) Medical mouthwash times Branch daily. chlorhexidi 2016-0 Yes [id number] 15mL [facility] ne 5-16 spit out ity of (PERIDEX) 00:00: 15 mL 2 [place] 0.12 % 00 (two) Medical mouthwash times Branch daily. chlorhexidi 2016-0 Yes [id number] 15mL [facility] 5-16 spit out ity of (PERIDEX) 00:00: 15 mL 2 [place] 0.12 % 00 (two) Medical mouthwash times Branch daily. chlorhexidi 2015- Yes [id number] 15mL [facility] ne 5-16 spit out ity of (PERIDEX) 00:00: 15 mL 2 [place] 0.12 % 00 (two) Medical mouthwash times Branch daily. albuterol 2014-08 Yes 2{puff} Inhale 2 U nivers (VENTOLIN 2-07 Puffs ity of HFA) 90 00:00: every 6 [place] mcg/actuati 00 (six) Medical on inhaler hours as Branc h needed for Wheezing or Shortness of Breath. albuterol 2014-08 Yes 2{puff} Inhale 2 U nivers (VENTOLIN 2-07 Puffs ity of HFA) 90 00:00: every 6 [place] mcg/actuati 00 (six) Medical on inhaler hours as Branc h needed for Wheezing or Shortness of Breath. albuterol 2014-08 Yes 2{puff} Inhale 2 U nivers (VENTOLIN 2-07 Puffs ity of HFA) 90 00:00: every 6 [place] mcg/actuati 00 (six) Medical on inhaler hours as Branc h needed for Wheezing or Shortness of Breath. albuterol 2014-08 Yes 2{puff} Inhale 2 U nivers (VENTOLIN 2-07 Puffs ity of HFA) 90 00:00: every 6 [place] mcg/actuati 00 (six) Medical on inhaler hours as Branc h needed for Wheezing or Shortness of Breath. albuterol 2014-08 Yes 2{puff} Inhale 2 U nivers (VENTOLIN 2-07 Puffs ity of HFA) 90 00:00: every 6 [place] mcg/actuati 00 (six) Medical on inhaler hours as Branc h needed for Wheezing or Shortness of Breath. albuterol 2014-08 Yes 2{puff} Inhale 2 U nivers (VENTOLIN 2-07 Puffs ity of HFA) 90 00:00: every 6 [place] mcg/actuati 00 (six) Medical on inhaler hours as Branc h needed for Wheezing or Shortness of Breath. albuterol 2014-08 Yes 2{puff} Inhale 2 U nivers (VENTOLIN 2-07 Puffs ity of HFA) 90 00:00: every 6 [place] mcg/actuati 00 (six) Medical on inhaler hours as Branc h needed for Wheezing or Shortness of Breath. albuterol 2014-08 Yes 2{puff} Inhale 2 U nivers (VENTOLIN 2-07 Puffs ity of HFA) 90 00:00: every 6 [place] mcg/actuati 00 (six) Medical on inhaler hours as Branc h needed for Wheezing or Shortness of Breath. albuterol 2014-08 Yes 2{puff} Inhale 2 U nivers (VENTOLIN 2-07 Puffs ity of HFA) 90 00:00: every 6 [place] mcg/actuati 00 (six) Medical on inhaler hours as Branc h needed for Wheezing or Shortness of Breath. albuterol 2014-08 Yes 2{puff} Inhale 2 U nivers (VENTOLIN 2-07 Puffs ity of HFA) 90 00:00: every 6 [place] mcg/actuati 00 (six) Medical on inhaler hours as Branc h needed for Wheezing or Shortness of Breath. albuterol 2014-08 Yes 2{puff} Inhale 2 U nivers (VENTOLIN 2-07 Puffs ity of HFA) 90 00:00: every 6 [place] mcg/actuati 00 (six) Medical on inhaler hours as Branc h needed for Wheezing or Shortness of Breath. albuterol 2014-08 Yes 2{puff} Inhale 2 U nivers (VENTOLIN 2-07 Puffs ity of HFA) 90 00:00: every 6 [place] mcg/actuati 00 (six) Medical on inhaler hours as Branc h needed for Wheezing or Shortness of Breath. Lantus Lantus Yes Hollie 45 units Common SoloStar SoloStar [facility] - [facility] Aspir-81 81 Aspir-81 81 No 1{table QD Aspir-81 MG MG t} 81 MG Cetirizine Cetirizine No 1{table Cetirizine HCl 10 MG HCl 10 MG t} HCl 10 MG Carvedilol Carvedilol No 1{table BID Carvedilol 6.25 MG 6.25 MG t_with_ 6.25 MG food} prednisoLON prednisoLON No 1{drop_ BID prednisoLO E Acetate 1 E Acetate 1 into_af NE Acetate % % fected_ 1 % eye} Sucralfate Sucralfate No Sucralfate 1 GM 1 GM 1 GM Bactrim DS Bactrim DS No 1{table BID Bactrim DS 800-160 MG 800-160 MG t} 800-160 MG Lantus Lantus No QD Lantus SoloStar SoloStar SoloStar 100 UNIT/ML 100 UNIT/ML 100 UNIT/ML Chlorhexidi Chlorhexidi No Chlorhexid ne ne ine Gluconate Gluconate Gluconate 0.12 % 0.12 % 0.12 % Levothyroxi Levothyroxi No QD Levothyrox ne Sodium ne Sodium ine Sodium 50 MCG 50 MCG 50 MCG Nitroglycer Nitroglycer No Nitroglyce in 0.4 MG in 0.4 MG rin 0.4 MG Blood Blood No Blood Glucose Glucose Glucose Test Strip Test Strip Test Strip Fluticasone Fluticasone No Fluticason Propionate Propionate e 50 MCG/ACT 50 MCG/ACT Propionate 50 MCG/ACT Januvia 100 Januvia 100 No 1{table QD Januvia MG MG t} 100 MG Atorvastati Atorvastati No 1{table QD Atorvastat n Calcium n Calcium t} in Calcium 40 MG 40 MG 40 MG Glimepiride Glimepiride No 1{table QD Glimepirid 1 MG 1 MG t} e 1 MG Diclofenac Diclofenac No TID Diclofenac Sodium 1 % Sodium 1 % Sodium 1 % Tradjenta 5 Tradjenta 5 No 1{table QD Tradjenta MG MG t} 5 MG Flonase 50 Flonase 50 No 2{spray QD Flonase 50 MCG/ACT MCG/ACT _in_eac MCG/ACT h_nostr il} Famotidine Famotidine No 1{table Famotidine 20 MG 20 MG t} 20 MG EQ Allergy EQ Allergy No EQ Allergy Relief Relief Relief (Cetirizine (Cetirizine (Cetirizin ) 10 MG ) 10 MG e) 10 MG Carvedilol Carvedilol No 1{table BID Carvedilol 6.25 MG 6.25 MG t_with_ 6.25 MG food} Albuterol Albuterol No 2{puffs QID Albuterol Sulfate HFA Sulfate HFA _as_nee Sulfate 108 (90 108 (90 ded} HFA 108 Base) Base) (90 Base) MCG/ACT MCG/ACT MCG/ACT Pantoprazol Pantoprazol No 1{table QD Pantoprazo e Sodium 40 e Sodium 40 t} le Sodium MG MG 40 MG Allopurinol Allopurinol No Allopurino 100 MG 100 MG l 100 MG Aspir-81 81 Aspir-81 81 No 1{table QD Aspir-81 MG MG t} 81 MG Cetirizine Cetirizine No 1{table Cetirizine HCl 10 MG HCl 10 MG t} HCl 10 MG Lantus Lantus No QD Lantus SoloStar SoloStar SoloStar 100 UNIT/ML 100 UNIT/ML 100 UNIT/ML prednisoLON prednisoLON No 1{drop_ BID prednisoLO E Acetate 1 E Acetate 1 into_af NE Acetate % % fected_ 1 % eye} Sucralfate Sucralfate No Sucralfate 1 GM 1 GM 1 GM Bactrim DS Bactrim DS No 1{table BID Bactrim DS 800-160 MG 800-160 MG t} 800-160 MG Levothyroxi Levothyroxi No QD Levothyrox ne Sodium ne Sodium ine Sodium 50 MCG 50 MCG 50 MCG Lisinopril Lisinopril No 1{table QD Lisinopril 5 MG 5 MG t} 5 MG Nitroglycer Nitroglycer No Nitroglyce in 0.4 MG in 0.4 MG rin 0.4 MG Blood Blood No Blood Glucose Glucose Glucose Test Strip Test Strip Test Strip Fluticasone Fluticasone No Fluticason Propionate Propionate e 50 MCG/ACT 50 MCG/ACT Propionate 50 MCG/ACT Januvia 100 Januvia 100 No 1{table QD Januvia MG MG t} 100 MG Cetirizine Cetirizine No 1{table Cetirizine HCl 10 MG HCl 10 MG t} HCl 10 MG Chlorhexidi Chlorhexidi No Chlorhexid ne ne ine Gluconate Gluconate Gluconate 0.12 % 0.12 % 0.12 % Atorvastati Atorvastati No 1{table QD Atorvastat n Calcium n Calcium t} in Calcium 40 MG 40 MG 40 MG Glimepiride Glimepiride No 1{table QD Glimepirid 1 MG 1 MG t} e 1 MG Diclofenac Diclofenac No TID Diclofenac Sodium 1 % Sodium 1 % Sodium 1 % Sucralfate Sucralfate No Sucralfate 1 GM 1 GM 1 GM EQ Allergy EQ Allergy No EQ Allergy Relief Relief Relief (Cetirizine (Cetirizine (Cetirizin ) 10 MG ) 10 MG e) 10 MG Famotidine Famotidine No 1{table Famotidine 20 MG 20 MG t} 20 MG Fluticasone Fluticasone No Fluticason Propionate Propionate e 50 MCG/ACT 50 MCG/ACT Propionate 50 MCG/ACT Carvedilol Carvedilol No 1{table BID Carvedilol 6.25 MG 6.25 MG t_with_ 6.25 MG food} Aspir-81 81 Aspir-81 81 No 1{table QD Aspir-81 MG MG t} 81 MG Cetirizine Cetirizine No 1{table Cetirizine HCl 10 MG HCl 10 MG t} HCl 10 MG Allopurinol Allopurinol No Allopurino 100 MG 100 MG l 100 MG Tradjenta 5 Tradjenta 5 No 1{table QD Tradjenta MG MG t} 5 MG Flonase 50 Flonase 50 No 2{spray QD Flonase 50 MCG/ACT MCG/ACT _in_eac MCG/ACT h_nostr il} prednisoLON prednisoLON No 1{drop_ BID prednisoLO E Acetate 1 E Acetate 1 into_af NE Acetate % % fected_ 1 % eye} Lantus Lantus No QD Lantus SoloStar SoloStar SoloStar 100 UNIT/ML 100 UNIT/ML 100 UNIT/ML Albuterol Albuterol No 2{puffs QID Albuterol Sulfate HFA Sulfate HFA _as_nee Sulfate 108 (90 108 (90 ded} HFA 108 Base) Base) (90 Base) MCG/ACT MCG/ACT MCG/ACT Pantoprazol Pantoprazol No 1{table QD Pantoprazo e Sodium 40 e Sodium 40 t} le Sodium MG MG 40 MG Levothyroxi Levothyroxi No QD Levothyrox ne Sodium ne Sodium ine Sodium 50 MCG 50 MCG 50 MCG Lisinopril Lisinopril No 1{table QD Lisinopril 5 MG 5 MG t} 5 MG Nitroglycer Nitroglycer No Nitroglyce in 0.4 MG in 0.4 MG rin 0.4 MG Blood Blood No Blood Glucose Glucose Glucose Test Strip Test Strip Test Strip Bactrim DS Bactrim DS No 1{table BID Bactrim DS 800-160 MG 800-160 MG t} 800-160 MG Januvia 100 Januvia 100 No 1{table QD Januvia MG MG t} 100 MG Cetirizine Cetirizine No 1{table Cetirizine HCl 10 MG HCl 10 MG t} HCl 10 MG Chlorhexidi Chlorhexidi No Chlorhexid ne ne ine Gluconate Gluconate Gluconate 0.12 % 0.12 % 0.12 % Atorvastati Atorvastati No 1{table QD Atorvastat n Calcium n Calcium t} in Calcium 40 MG 40 MG 40 MG Glimepiride Glimepiride No 1{table QD Glimepirid 1 MG 1 MG t} e 1 MG Diclofenac Diclofenac No TID Diclofenac Sodium 1 % Sodium 1 % Sodium 1 % Sucralfate Sucralfate No Sucralfate 1 GM 1 GM 1 GM EQ Allergy EQ Allergy No EQ Allergy Relief Relief Relief (Cetirizine (Cetirizine (Cetirizin ) 10 MG ) 10 MG e) 10 MG Famotidine Famotidine No 1{table Famotidine 20 MG 20 MG t} 20 MG Fluticasone Fluticasone No Fluticason Propionate Propionate e 50 MCG/ACT 50 MCG/ACT Propionate 50 MCG/ACT Carvedilol Carvedilol No 1{table BID Carvedilol 6.25 MG 6.25 MG t_with_ 6.25 MG food} Aspir-81 81 Aspir-81 81 No 1{table QD Aspir-81 MG MG t} 81 MG Cetirizine Cetirizine No 1{table Cetirizine HCl 10 MG HCl 10 MG t} HCl 10 MG Allopurinol Allopurinol No Allopurino 100 MG 100 MG l 100 MG Tradjenta 5 Tradjenta 5 No 1{table QD Tradjenta MG MG t} 5 MG Flonase 50 Flonase 50 No 2{spray QD Flonase 50 MCG/ACT MCG/ACT _in_eac MCG/ACT h_nostr il} prednisoLON prednisoLON No 1{drop_ BID prednisoLO E Acetate 1 E Acetate 1 into_af NE Acetate % % fected_ 1 % eye} Lantus Lantus No QD Lantus SoloStar SoloStar SoloStar 100 UNIT/ML 100 UNIT/ML 100 UNIT/ML Albuterol Albuterol No 2{puffs QID Albuterol Sulfate HFA Sulfate HFA _as_nee Sulfate 108 (90 108 (90 ded} HFA 108 Base) Base) (90 Base) MCG/ACT MCG/ACT MCG/ACT Pantoprazol Pantoprazol No 1{table QD Pantoprazo e Sodium 40 e Sodium 40 t} le Sodium MG MG 40 MG Levothyroxi Levothyroxi No QD Levothyrox ne Sodium ne Sodium ine Sodium 50 MCG 50 MCG 50 MCG Lisinopril Lisinopril No 1{table QD Lisinopril 5 MG 5 MG t} 5 MG Nitroglycer Nitroglycer No Nitroglyce in 0.4 MG in 0.4 MG rin 0.4 MG Blood Blood No Blood Glucose Glucose Glucose Test Strip Test Strip Test Strip Bactrim DS Bactrim DS No 1{table BID Bactrim DS 800-160 MG 800-160 MG t} 800-160 MG Januvia 100 Januvia 100 No 1{table QD Januvia MG MG t} 100 MG Cetirizine Cetirizine No 1{table Cetirizine HCl 10 MG HCl 10 MG t} HCl 10 MG Chlorhexidi Chlorhexidi No Chlorhexid ne ne ine Gluconate Gluconate Gluconate 0.12 % 0.12 % 0.12 % Atorvastati Atorvastati No 1{table QD Atorvastat n Calcium n Calcium t} in Calcium 40 MG 40 MG 40 MG Glimepiride Glimepiride No 1{table QD Glimepirid 1 MG 1 MG t} e 1 MG Allopurinol Allopurinol No Allopurino 100 MG 100 MG l 100 MG Tradjenta 5 Tradjenta 5 No 1{table QD Tradjenta MG MG t} 5 MG EQ Allergy EQ Allergy No EQ Allergy Relief Relief Relief (Cetirizine (Cetirizine (Cetirizin ) 10 MG ) 10 MG e) 10 MG Diclofenac Diclofenac No TID Diclofenac Sodium 1 % Sodium 1 % Sodium 1 % Sucralfate Sucralfate No Sucralfate 1 GM 1 GM 1 GM Fluticasone Fluticasone No Fluticason Propionate Propionate e 50 MCG/ACT 50 MCG/ACT Propionate 50 MCG/ACT Lantus Lantus No QD Lantus SoloStar SoloStar SoloStar 100 UNIT/ML 100 UNIT/ML 100 UNIT/ML Aspir-81 81 Aspir-81 81 No 1{table QD Aspir-81 MG MG t} 81 MG Cetirizine Cetirizine No 1{table Cetirizine HCl 10 MG HCl 10 MG t} HCl 10 MG Carvedilol Carvedilol No 1{table BID Carvedilol 6.25 MG 6.25 MG t_with_ 6.25 MG food} Glimepiride Glimepiride No Glimepirid 1 MG 1 MG e 1 MG Flonase 50 Flonase 50 No 2{spray QD Flonase 50 MCG/ACT MCG/ACT _in_eac MCG/ACT h_nostr il} prednisoLON prednisoLON No 1{drop_ BID prednisoLO E Acetate 1 E Acetate 1 into_af NE Acetate % % fected_ 1 % eye} Blood Blood No Blood Glucose Glucose Glucose Test Strip Test Strip Test Strip Albuterol Albuterol No 2{puffs QID Albuterol Sulfate HFA Sulfate HFA _as_nee Sulfate 108 (90 108 (90 ded} HFA 108 Base) Base) (90 Base) MCG/ACT MCG/ACT MCG/ACT Pantoprazol Pantoprazol No 1{table QD Pantoprazo e Sodium 40 e Sodium 40 t} le Sodium MG MG 40 MG Januvia 100 Januvia 100 No 1{table QD Januvia MG MG t} 100 MG Cetirizine Cetirizine No 1{table Cetirizine HCl 10 MG HCl 10 MG t} HCl 10 MG Chlorhexidi Chlorhexidi No Chlorhexid ne ne ine Gluconate Gluconate Gluconate 0.12 % 0.12 % 0.12 % Lisinopril Lisinopril No 1{table QD Lisinopril 5 MG 5 MG t} 5 MG Bactrim DS Bactrim DS No 1{table BID Bactrim DS 800-160 MG 800-160 MG t} 800-160 MG Nitroglycer Nitroglycer No Nitroglyce in 0.4 MG in 0.4 MG rin 0.4 MG Famotidine Famotidine No 1{table Famotidine 20 MG 20 MG t} 20 MG Levothyroxi Levothyroxi No QD Levothyrox ne Sodium ne Sodium ine Sodium 50 MCG 50 MCG 50 MCG Atorvastati Atorvastati No 1{table QD Atorvastat n Calcium n Calcium t} in Calcium 40 MG 40 MG 40 MG Cetirizine Cetirizine No 1{table Cetirizine HCl 10 MG HCl 10 MG t} HCl 10 MG Levothyroxi Levothyroxi No QD Levothyrox ne Sodium ne Sodium ine Sodium 50 MCG 50 MCG 50 MCG Blood Blood No Blood Glucose Glucose Glucose Test Strip Test Strip Test Strip Albuterol Albuterol No 2{puffs QID Albuterol Sulfate HFA Sulfate HFA _as_nee Sulfate 108 (90 108 (90 ded} HFA 108 Base) Base) (90 Base) MCG/ACT MCG/ACT MCG/ACT Glimepiride Glimepiride No 1{table Glimepirid 1 MG 1 MG t} e 1 MG Metoprolol Metoprolol No BID Metoprolol Tartrate 25 Tartrate 25 Tartrate mg mg 25 mg Sucralfate Sucralfate No 1{table Sucralfate 1 GM 1 GM t_as_ne 1 GM eded} Nitroglycer Nitroglycer No Nitroglyce in 0.4 MG in 0.4 MG rin 0.4 MG Lantus Lantus No QD Lantus SoloStar SoloStar SoloStar 100 UNIT/ML 100 UNIT/ML 100 UNIT/ML Chlorhexidi Chlorhexidi No Chlorhexid ne ne ine Gluconate Gluconate Gluconate 0.12 % 0.12 % 0.12 % Lisinopril Lisinopril No 1{table QD Lisinopril 5 MG 5 MG t} 5 MG Famotidine Famotidine No 1{table Famotidine 20 MG 20 MG t} 20 MG Flonase 50 Flonase 50 No 2{spray QD Flonase 50 MCG/ACT MCG/ACT _in_eac MCG/ACT h_nostr il} Lovastatin Lovastatin No QD Lovastatin 20 mg 20 mg 20 mg Tradjenta 5 Tradjenta 5 No 1{table QD Tradjenta MG MG t} 5 MG Tradjenta 5 Tradjenta 5 No 1{table QD Tradjenta MG MG t} 5 MG Blood Blood No Blood Glucose Glucose Glucose Test Strip Test Strip Test Strip EQ Allergy EQ Allergy No EQ Allergy Relief Relief Relief (Cetirizine (Cetirizine (Cetirizin ) 10 MG ) 10 MG e) 10 MG Chlorhexidi Chlorhexidi No Chlorhexid ne ne ine Gluconate Gluconate Gluconate 0.12 % 0.12 % 0.12 % Lisinopril Lisinopril No 1{table QD Lisinopril 5 MG 5 MG t} 5 MG Levothyroxi Levothyroxi No QD Levothyrox ne Sodium ne Sodium ine Sodium 50 MCG 50 MCG 50 MCG Famotidine Famotidine No 1{table Famotidine 20 MG 20 MG t} 20 MG Nitroglycer Nitroglycer No Nitroglyce in 0.4 MG in 0.4 MG rin 0.4 MG Lovastatin Lovastatin No QD Lovastatin 20 mg 20 mg 20 mg Albuterol Albuterol No 2{puffs QID Albuterol Sulfate HFA Sulfate HFA _as_nee Sulfate 108 (90 108 (90 ded} HFA 108 Base) Base) (90 Base) MCG/ACT MCG/ACT MCG/ACT Fluticasone Fluticasone No Fluticason Propionate Propionate e 50 MCG/ACT 50 MCG/ACT Propionate 50 MCG/ACT Glimepiride Glimepiride No 1{table Glimepirid 1 MG 1 MG t} e 1 MG Lantus Lantus No QD Lantus SoloStar SoloStar SoloStar 100 UNIT/ML 100 UNIT/ML 100 UNIT/ML Metoprolol Metoprolol No BID Metoprolol Tartrate 25 Tartrate 25 Tartrate mg mg 25 mg Sucralfate Sucralfate No 1{table Sucralfate 1 GM 1 GM t_as_ne 1 GM eded} Tradjenta 5 Tradjenta 5 No 1{table QD Tradjenta MG MG t} 5 MG Levothyroxi Levothyroxi No QD Levothyrox ne Sodium ne Sodium ine Sodium 50 MCG 50 MCG 50 MCG Chlorhexidi Chlorhexidi No Chlorhexid ne ne ine Gluconate Gluconate Gluconate 0.12 % 0.12 % 0.12 % EQ Allergy EQ Allergy No EQ Allergy Relief Relief Relief (Cetirizine (Cetirizine (Cetirizin ) 10 MG ) 10 MG e) 10 MG Lisinopril Lisinopril No 1{table QD Lisinopril 5 MG 5 MG t} 5 MG Famotidine Famotidine No 1{table Famotidine 20 MG 20 MG t} 20 MG Nitroglycer Nitroglycer No Nitroglyce in 0.4 MG in 0.4 MG rin 0.4 MG Lovastatin Lovastatin No QD Lovastatin 20 mg 20 mg 20 mg Albuterol Albuterol No 2{puffs QID Albuterol Sulfate HFA Sulfate HFA _as_nee Sulfate 108 (90 108 (90 ded} HFA 108 Base) Base) (90 Base) MCG/ACT MCG/ACT MCG/ACT Sucralfate Sucralfate No 1{table Sucralfate 1 GM 1 GM t_as_ne 1 GM eded} Lantus Lantus No QD Lantus SoloStar SoloStar SoloStar 100 UNIT/ML 100 UNIT/ML 100 UNIT/ML Fluticasone Fluticasone No Fluticason Propionate Propionate e 50 MCG/ACT 50 MCG/ACT Propionate 50 MCG/ACT Glimepiride Glimepiride No 1{table Glimepirid 1 MG 1 MG t} e 1 MG Metoprolol Metoprolol No BID Metoprolol Tartrate 25 Tartrate 25 Tartrate mg mg 25 mg Blood Blood No Blood Glucose Glucose Glucose Test Strip Test Strip Test Strip Tradjenta 5 Tradjenta 5 No 1{table QD Tradjenta MG MG t} 5 MG Levothyroxi Levothyroxi No QD Levothyrox ne Sodium ne Sodium ine Sodium 50 MCG 50 MCG 50 MCG Chlorhexidi Chlorhexidi No Chlorhexid ne ne ine Gluconate Gluconate Gluconate 0.12 % 0.12 % 0.12 % EQ Allergy EQ Allergy No EQ Allergy Relief Relief Relief (Cetirizine (Cetirizine (Cetirizin ) 10 MG ) 10 MG e) 10 MG Lisinopril Lisinopril No 1{table QD Lisinopril 5 MG 5 MG t} 5 MG Famotidine Famotidine No 1{table Famotidine 20 MG 20 MG t} 20 MG Nitroglycer Nitroglycer No Nitroglyce in 0.4 MG in 0.4 MG rin 0.4 MG Lovastatin Lovastatin No QD Lovastatin 20 mg 20 mg 20 mg Albuterol Albuterol No 2{puffs QID Albuterol Sulfate HFA Sulfate HFA _as_nee Sulfate 108 (90 108 (90 ded} HFA 108 Base) Base) (90 Base) MCG/ACT MCG/ACT MCG/ACT Sucralfate Sucralfate No 1{table Sucralfate 1 GM 1 GM t_as_ne 1 GM eded} Lantus Lantus No QD Lantus SoloStar SoloStar SoloStar 100 UNIT/ML 100 UNIT/ML 100 UNIT/ML Fluticasone Fluticasone No Fluticason Propionate Propionate e 50 MCG/ACT 50 MCG/ACT Propionate 50 MCG/ACT Glimepiride Glimepiride No 1{table Glimepirid 1 MG 1 MG t} e 1 MG Metoprolol Metoprolol No BID Metoprolol Tartrate 25 Tartrate 25 Tartrate mg mg 25 mg Blood Blood No Blood Glucose Glucose Glucose Test Strip Test Strip Test Strip Tradjenta 5 Tradjenta 5 No 1{table QD MG MG t} Levothyroxi Levothyroxi No QD ne Sodium ne Sodium 50 MCG 50 MCG Chlorhexidi Chlorhexidi No ne ne Gluconate Gluconate 0.12 % 0.12 % EQ Allergy EQ Allergy No Relief Relief (Cetirizine (Cetirizine ) 10 MG ) 10 MG Lisinopril Lisinopril No 1{table QD 5 MG 5 MG t} Famotidine Famotidine No 1{table 20 MG 20 MG t} Nitroglycer Nitroglycer No in 0.4 MG in 0.4 MG Lovastatin Lovastatin No QD 20 mg 20 mg Albuterol Albuterol No 2{puffs QID Sulfate HFA Sulfate HFA _as_nee 108 (90 108 (90 ded} Base) Base) MCG/ACT MCG/ACT Sucralfate Sucralfate No 1{table 1 GM 1 GM t_as_ne eded} Lantus Lantus No QD SoloStar SoloStar 100 UNIT/ML 100 UNIT/ML Fluticasone Fluticasone No Propionate Propionate 50 MCG/ACT 50 MCG/ACT Glimepiride Glimepiride No 1{table 1 MG 1 MG t} Metoprolol Metoprolol No BID Tartrate 25 Tartrate 25 mg mg Blood Blood No Glucose Glucose Test Strip Test Strip Tradjenta 5 Tradjenta 5 No 1{table QD Tradjenta MG MG t} 5 MG Levothyroxi Levothyroxi No QD Levothyrox ne Sodium ne Sodium ine Sodium 50 MCG 50 MCG 50 MCG Lantus Lantus No QD Lantus SoloStar SoloStar SoloStar 100 UNIT/ML 100 UNIT/ML 100 UNIT/ML EQ Allergy EQ Allergy No EQ Allergy Relief Relief Relief (Cetirizine (Cetirizine (Cetirizin ) 10 MG ) 10 MG e) 10 MG Lisinopril Lisinopril No 1{table QD Lisinopril 5 MG 5 MG t} 5 MG Famotidine Famotidine No 1{table Famotidine 20 MG 20 MG t} 20 MG Nitroglycer Nitroglycer No Nitroglyce in 0.4 MG in 0.4 MG rin 0.4 MG Lovastatin Lovastatin No QD Lovastatin 20 mg 20 mg 20 mg Chlorhexidi Chlorhexidi No Chlorhexid ne ne ine Gluconate Gluconate Gluconate 0.12 % 0.12 % 0.12 % Albuterol Albuterol No 2{puffs QID Albuterol Sulfate HFA Sulfate HFA _as_nee Sulfate 108 (90 108 (90 ded} HFA 108 Base) Base) (90 Base) MCG/ACT MCG/ACT MCG/ACT Sucralfate Sucralfate No 1{table Sucralfate 1 GM 1 GM t_as_ne 1 GM eded} Fluticasone Fluticasone No Fluticason Propionate Propionate e 50 MCG/ACT 50 MCG/ACT Propionate 50 MCG/ACT Glimepiride Glimepiride No 1{table Glimepirid 1 MG 1 MG t} e 1 MG Metoprolol Metoprolol No BID Metoprolol Tartrate 25 Tartrate 25 Tartrate mg mg 25 mg Blood Blood No Blood Glucose Glucose Glucose Test Strip Test Strip Test Strip Sucralfate Sucralfate No 1{table Sucralfate 1 GM 1 GM t_as_ne 1 GM eded} Blood Blood No Blood Glucose Glucose Glucose Test Strip Test Strip Test Strip Lisinopril Lisinopril No 1{table QD Lisinopril 5 MG 5 MG t} 5 MG Flonase 50 Flonase 50 No 2{spray QD Flonase 50 MCG/ACT MCG/ACT _in_eac MCG/ACT h_nostr il} Albuterol Albuterol No 2{puffs QID Albuterol Sulfate HFA Sulfate HFA _as_nee Sulfate 108 (90 108 (90 ded} HFA 108 Base) Base) (90 Base) MCG/ACT MCG/ACT MCG/ACT Tradjenta 5 Tradjenta 5 No 1{table QD Tradjenta MG MG t} 5 MG Glimepiride Glimepiride No 1{table QD Glimepirid 1 MG 1 MG t} e 1 MG Nitroglycer Nitroglycer No Nitroglyce in 0.4 MG in 0.4 MG rin 0.4 MG Famotidine Famotidine No 1{table Famotidine 20 MG 20 MG t} 20 MG Chlorhexidi Chlorhexidi No Chlorhexid ne ne ine Gluconate Gluconate Gluconate 0.12 % 0.12 % 0.12 % Levothyroxi Levothyroxi No QD Levothyrox ne Sodium ne Sodium ine Sodium 50 MCG 50 MCG 50 MCG Metoprolol Metoprolol No BID Metoprolol Tartrate 25 Tartrate 25 Tartrate mg mg 25 mg Lantus Lantus No QD Lantus SoloStar SoloStar SoloStar 100 UNIT/ML 100 UNIT/ML 100 UNIT/ML Cetirizine Cetirizine No 1{table Cetirizine HCl 10 MG HCl 10 MG t} HCl 10 MG EQ Allergy EQ Allergy No EQ Allergy Relief Relief Relief (Cetirizine (Cetirizine (Cetirizin ) 10 MG ) 10 MG e) 10 MG Januvia 100 Januvia 100 No 1{table QD Januvia MG MG t} 100 MG Lovastatin Lovastatin No QD Lovastatin 20 mg 20 mg 20 mg Fluticasone Fluticasone No Fluticason Propionate Propionate e 50 MCG/ACT 50 MCG/ACT Propionate 50 MCG/ACT Fluticasone Fluticasone No Fluticason Propionate Propionate e 50 MCG/ACT 50 MCG/ACT Propionate 50 MCG/ACT Cetirizine Cetirizine No 1{table Cetirizine HCl 10 MG HCl 10 MG t} HCl 10 MG Chlorhexidi Chlorhexidi No Chlorhexid ne ne ine Gluconate Gluconate Gluconate 0.12 % 0.12 % 0.12 % Famotidine Famotidine No 1{table Famotidine 20 MG 20 MG t} 20 MG EQ Allergy EQ Allergy No EQ Allergy Relief Relief Relief (Cetirizine (Cetirizine (Cetirizin ) 10 MG ) 10 MG e) 10 MG Levothyroxi Levothyroxi No QD Levothyrox ne Sodium ne Sodium ine Sodium 50 MCG 50 MCG 50 MCG Lovastatin Lovastatin No QD Lovastatin 20 mg 20 mg 20 mg Lisinopril Lisinopril No 1{table QD Lisinopril 5 MG 5 MG t} 5 MG Lantus Lantus No QD Lantus SoloStar SoloStar SoloStar 100 UNIT/ML 100 UNIT/ML 100 UNIT/ML Blood Blood No Blood Glucose Glucose Glucose Test Strip Test Strip Test Strip Albuterol Albuterol No 2{puffs QID Albuterol Sulfate HFA Sulfate HFA _as_nee Sulfate 108 (90 108 (90 ded} HFA 108 Base) Base) (90 Base) MCG/ACT MCG/ACT MCG/ACT Januvia 100 Januvia 100 No 1{table QD Januvia MG MG t} 100 MG Tradjenta 5 Tradjenta 5 No 1{table QD Tradjenta MG MG t} 5 MG Flonase 50 Flonase 50 No 2{spray QD Flonase 50 MCG/ACT MCG/ACT _in_eac MCG/ACT h_nostr il} Sucralfate Sucralfate No 1{table Sucralfate 1 GM 1 GM t_as_ne 1 GM eded} Metoprolol Metoprolol No BID Metoprolol Tartrate 25 Tartrate 25 Tartrate mg mg 25 mg Nitroglycer Nitroglycer No Nitroglyce in 0.4 MG in 0.4 MG rin 0.4 MG Glimepiride Glimepiride No 1{table QD Glimepirid 1 MG 1 MG t} e 1 MG Glimepiride Glimepiride No 1{table QD Glimepirid 1 MG 1 MG t} e 1 MG Fluticasone Fluticasone No Fluticason Propionate Propionate e 50 MCG/ACT 50 MCG/ACT Propionate 50 MCG/ACT Blood Blood No Blood Glucose Glucose Glucose Test Strip Test Strip Test Strip Albuterol Albuterol No 2{puffs QID Albuterol Sulfate HFA Sulfate HFA _as_nee Sulfate 108 (90 108 (90 ded} HFA 108 Base) Base) (90 Base) MCG/ACT MCG/ACT MCG/ACT Levothyroxi Levothyroxi No QD Levothyrox ne Sodium ne Sodium ine Sodium 50 MCG 50 MCG 50 MCG Tradjenta 5 Tradjenta 5 No 1{table QD Tradjenta MG MG t} 5 MG Lisinopril Lisinopril No 1{table QD Lisinopril 5 MG 5 MG t} 5 MG Metoprolol Metoprolol No BID Metoprolol Tartrate 25 Tartrate 25 Tartrate mg mg 25 mg Lantus Lantus No QD Lantus SoloStar SoloStar SoloStar 100 UNIT/ML 100 UNIT/ML 100 UNIT/ML Flonase 50 Flonase 50 No 2{spray QD Flonase 50 MCG/ACT MCG/ACT _in_eac MCG/ACT h_nostr il} Januvia 100 Januvia 100 No 1{table QD Januvia MG MG t} 100 MG EQ Allergy EQ Allergy No EQ Allergy Relief Relief Relief (Cetirizine (Cetirizine (Cetirizin ) 10 MG ) 10 MG e) 10 MG Cetirizine Cetirizine No 1{table Cetirizine HCl 10 MG HCl 10 MG t} HCl 10 MG Famotidine Famotidine No 1{table Famotidine 20 MG 20 MG t} 20 MG Chlorhexidi Chlorhexidi No Chlorhexid ne ne ine Gluconate Gluconate Gluconate 0.12 % 0.12 % 0.12 % Lovastatin Lovastatin No QD Lovastatin 20 mg 20 mg 20 mg Sucralfate Sucralfate No 1{table Sucralfate 1 GM 1 GM t_as_ne 1 GM eded} Nitroglycer Nitroglycer No Nitroglyce in 0.4 MG in 0.4 MG rin 0.4 MG Glimepiride Glimepiride No 1{table QD Glimepirid 1 MG 1 MG t} e 1 MG Fluticasone Fluticasone No Fluticason Propionate Propionate e 50 MCG/ACT 50 MCG/ACT Propionate 50 MCG/ACT Blood Blood No Blood Glucose Glucose Glucose Test Strip Test Strip Test Strip Albuterol Albuterol No 2{puffs QID Albuterol Sulfate HFA Sulfate HFA _as_nee Sulfate 108 (90 108 (90 ded} HFA 108 Base) Base) (90 Base) MCG/ACT MCG/ACT MCG/ACT Levothyroxi Levothyroxi No QD Levothyrox ne Sodium ne Sodium ine Sodium 50 MCG 50 MCG 50 MCG Tradjenta 5 Tradjenta 5 No 1{table QD Tradjenta MG MG t} 5 MG Lisinopril Lisinopril No 1{table QD Lisinopril 5 MG 5 MG t} 5 MG Metoprolol Metoprolol No BID Metoprolol Tartrate 25 Tartrate 25 Tartrate mg mg 25 mg Lantus Lantus No QD Lantus SoloStar SoloStar SoloStar 100 UNIT/ML 100 UNIT/ML 100 UNIT/ML Flonase 50 Flonase 50 No 2{spray QD Flonase 50 MCG/ACT MCG/ACT _in_eac MCG/ACT h_nostr il} Januvia 100 Januvia 100 No 1{table QD Januvia MG MG t} 100 MG EQ Allergy EQ Allergy No EQ Allergy Relief Relief Relief (Cetirizine (Cetirizine (Cetirizin ) 10 MG ) 10 MG e) 10 MG Cetirizine Cetirizine No 1{table Cetirizine HCl 10 MG HCl 10 MG t} HCl 10 MG Famotidine Famotidine No 1{table Famotidine 20 MG 20 MG t} 20 MG Chlorhexidi Chlorhexidi No Chlorhexid ne ne ine Gluconate Gluconate Gluconate 0.12 % 0.12 % 0.12 % Lovastatin Lovastatin No QD Lovastatin 20 mg 20 mg 20 mg Sucralfate Sucralfate No 1{table Sucralfate 1 GM 1 GM t_as_ne 1 GM eded} Nitroglycer Nitroglycer No Nitroglyce in 0.4 MG in 0.4 MG rin 0.4 MG Glimepiride Glimepiride No 1{table QD Glimepirid 1 MG 1 MG t} e 1 MG Fluticasone Fluticasone No Fluticason Propionate Propionate e 50 MCG/ACT 50 MCG/ACT Propionate 50 MCG/ACT Blood Blood No Blood Glucose Glucose Glucose Test Strip Test Strip Test Strip Albuterol Albuterol No 2{puffs QID Albuterol Sulfate HFA Sulfate HFA _as_nee Sulfate 108 (90 108 (90 ded} HFA 108 Base) Base) (90 Base) MCG/ACT MCG/ACT MCG/ACT Levothyroxi Levothyroxi No QD Levothyrox ne Sodium ne Sodium ine Sodium 50 MCG 50 MCG 50 MCG Tradjenta 5 Tradjenta 5 No 1{table QD Tradjenta MG MG t} 5 MG Lisinopril Lisinopril No 1{table QD Lisinopril 5 MG 5 MG t} 5 MG Metoprolol Metoprolol No BID Metoprolol Tartrate 25 Tartrate 25 Tartrate mg mg 25 mg Lantus Lantus No QD Lantus SoloStar SoloStar SoloStar 100 UNIT/ML 100 UNIT/ML 100 UNIT/ML Flonase 50 Flonase 50 No 2{spray QD Flonase 50 MCG/ACT MCG/ACT _in_eac MCG/ACT h_nostr il} Januvia 100 Januvia 100 No 1{table QD Januvia MG MG t} 100 MG EQ Allergy EQ Allergy No EQ Allergy Relief Relief Relief (Cetirizine (Cetirizine (Cetirizin ) 10 MG ) 10 MG e) 10 MG Cetirizine Cetirizine No 1{table Cetirizine HCl 10 MG HCl 10 MG t} HCl 10 MG Famotidine Famotidine No 1{table Famotidine 20 MG 20 MG t} 20 MG Chlorhexidi Chlorhexidi No Chlorhexid ne ne ine Gluconate Gluconate Gluconate 0.12 % 0.12 % 0.12 % Lovastatin Lovastatin No QD Lovastatin 20 mg 20 mg 20 mg Sucralfate Sucralfate No 1{table Sucralfate 1 GM 1 GM t_as_ne 1 GM eded} Nitroglycer Nitroglycer No Nitroglyce in 0.4 MG in 0.4 MG rin 0.4 MG Chlorhexidi Chlorhexidi No Chlorhexid ne ne ine Gluconate Gluconate Gluconate 0.12 % 0.12 % 0.12 % Albuterol Albuterol No 2{puffs QID Albuterol Sulfate HFA Sulfate HFA _as_nee Sulfate 108 (90 108 (90 ded} HFA 108 Base) Base) (90 Base) MCG/ACT MCG/ACT MCG/ACT Pantoprazol Pantoprazol No 1{table QD Pantoprazo e Sodium 40 e Sodium 40 t} le Sodium MG MG 40 MG Nitroglycer Nitroglycer No Nitroglyce in 0.4 MG in 0.4 MG rin 0.4 MG Flonase 50 Flonase 50 No 2{spray QD Flonase 50 MCG/ACT MCG/ACT _in_eac MCG/ACT h_nostr il} Blood Blood No Blood Glucose Glucose Glucose Test Strip Test Strip Test Strip Sucralfate Sucralfate No 1{table Sucralfate 1 GM 1 GM t_as_ne 1 GM eded} Lovastatin Lovastatin No QD Lovastatin 20 mg 20 mg 20 mg Metoprolol Metoprolol No BID Metoprolol Tartrate 25 Tartrate 25 Tartrate mg mg 25 mg Januvia 100 Januvia 100 No 1{table QD Januvia MG MG t} 100 MG Levothyroxi Levothyroxi No QD Levothyrox ne Sodium ne Sodium ine Sodium 50 MCG 50 MCG 50 MCG Tradjenta 5 Tradjenta 5 No 1{table QD Tradjenta MG MG t} 5 MG Cetirizine Cetirizine No 1{table Cetirizine HCl 10 MG HCl 10 MG t} HCl 10 MG Bactrim DS Bactrim DS No 1{table BID Bactrim DS 800-160 MG 800-160 MG t} 800-160 MG Glimepiride Glimepiride No 1{table QD Glimepirid 1 MG 1 MG t} e 1 MG Fluticasone Fluticasone No Fluticason Propionate Propionate e 50 MCG/ACT 50 MCG/ACT Propionate 50 MCG/ACT Famotidine Famotidine No 1{table Famotidine 20 MG 20 MG t} 20 MG EQ Allergy EQ Allergy No EQ Allergy Relief Relief Relief (Cetirizine (Cetirizine (Cetirizin ) 10 MG ) 10 MG e) 10 MG Lantus Lantus No QD Lantus SoloStar SoloStar SoloStar 100 UNIT/ML 100 UNIT/ML 100 UNIT/ML Lisinopril Lisinopril No 1{table QD Lisinopril 5 MG 5 MG t} 5 MG Chlorhexidi Chlorhexidi No Chlorhexid ne ne ine Gluconate Gluconate Gluconate 0.12 % 0.12 % 0.12 % Albuterol Albuterol No 2{puffs QID Albuterol Sulfate HFA Sulfate HFA _as_nee Sulfate 108 (90 108 (90 ded} HFA 108 Base) Base) (90 Base) MCG/ACT MCG/ACT MCG/ACT Pantoprazol Pantoprazol No 1{table QD Pantoprazo e Sodium 40 e Sodium 40 t} le Sodium MG MG 40 MG Nitroglycer Nitroglycer No Nitroglyce in 0.4 MG in 0.4 MG rin 0.4 MG Flonase 50 Flonase 50 No 2{spray QD Flonase 50 MCG/ACT MCG/ACT _in_eac MCG/ACT h_nostr il} Blood Blood No Blood Glucose Glucose Glucose Test Strip Test Strip Test Strip Sucralfate Sucralfate No 1{table Sucralfate 1 GM 1 GM t_as_ne 1 GM eded} Lovastatin Lovastatin No QD Lovastatin 20 mg 20 mg 20 mg Metoprolol Metoprolol No BID Metoprolol Tartrate 25 Tartrate 25 Tartrate mg mg 25 mg Januvia 100 Januvia 100 No 1{table QD Januvia MG MG t} 100 MG Levothyroxi Levothyroxi No QD Levothyrox ne Sodium ne Sodium ine Sodium 50 MCG 50 MCG 50 MCG Tradjenta 5 Tradjenta 5 No 1{table QD Tradjenta MG MG t} 5 MG Cetirizine Cetirizine No 1{table Cetirizine HCl 10 MG HCl 10 MG t} HCl 10 MG Bactrim DS Bactrim DS No 1{table BID Bactrim DS 800-160 MG 800-160 MG t} 800-160 MG Glimepiride Glimepiride No 1{table QD Glimepirid 1 MG 1 MG t} e 1 MG Fluticasone Fluticasone No Fluticason Propionate Propionate e 50 MCG/ACT 50 MCG/ACT Propionate 50 MCG/ACT Famotidine Famotidine No 1{table Famotidine 20 MG 20 MG t} 20 MG EQ Allergy EQ Allergy No EQ Allergy Relief Relief Relief (Cetirizine (Cetirizine (Cetirizin ) 10 MG ) 10 MG e) 10 MG Lantus Lantus No QD Lantus SoloStar SoloStar SoloStar 100 UNIT/ML 100 UNIT/ML 100 UNIT/ML Lisinopril Lisinopril No 1{table QD Lisinopril 5 MG 5 MG t} 5 MG Chlorhexidi Chlorhexidi No Chlorhexid ne ne ine Gluconate Gluconate Gluconate 0.12 % 0.12 % 0.12 % Albuterol Albuterol No 2{puffs QID Albuterol Sulfate HFA Sulfate HFA _as_nee Sulfate 108 (90 108 (90 ded} HFA 108 Base) Base) (90 Base) MCG/ACT MCG/ACT MCG/ACT Pantoprazol Pantoprazol No 1{table QD Pantoprazo e Sodium 40 e Sodium 40 t} le Sodium MG MG 40 MG Nitroglycer Nitroglycer No Nitroglyce in 0.4 MG in 0.4 MG rin 0.4 MG Flonase 50 Flonase 50 No 2{spray QD Flonase 50 MCG/ACT MCG/ACT _in_eac MCG/ACT h_nostr il} Blood Blood No Blood Glucose Glucose Glucose Test Strip Test Strip Test Strip Sucralfate Sucralfate No 1{table Sucralfate 1 GM 1 GM t_as_ne 1 GM eded} Lovastatin Lovastatin No QD Lovastatin 20 mg 20 mg 20 mg Metoprolol Metoprolol No BID Metoprolol Tartrate 25 Tartrate 25 Tartrate mg mg 25 mg Januvia 100 Januvia 100 No 1{table QD Januvia MG MG t} 100 MG Levothyroxi Levothyroxi No QD Levothyrox ne Sodium ne Sodium ine Sodium 50 MCG 50 MCG 50 MCG Tradjenta 5 Tradjenta 5 No 1{table QD Tradjenta MG MG t} 5 MG Cetirizine Cetirizine No 1{table Cetirizine HCl 10 MG HCl 10 MG t} HCl 10 MG Bactrim DS Bactrim DS No 1{table BID Bactrim DS 800-160 MG 800-160 MG t} 800-160 MG Glimepiride Glimepiride No 1{table QD Glimepirid 1 MG 1 MG t} e 1 MG Fluticasone Fluticasone No Fluticason Propionate Propionate e 50 MCG/ACT 50 MCG/ACT Propionate 50 MCG/ACT Famotidine Famotidine No 1{table Famotidine 20 MG 20 MG t} 20 MG EQ Allergy EQ Allergy No EQ Allergy Relief Relief Relief (Cetirizine (Cetirizine (Cetirizin ) 10 MG ) 10 MG e) 10 MG Lantus Lantus No QD Lantus SoloStar SoloStar SoloStar 100 UNIT/ML 100 UNIT/ML 100 UNIT/ML Lisinopril Lisinopril No 1{table QD Lisinopril 5 MG 5 MG t} 5 MG Chlorhexidi Chlorhexidi No Chlorhexid ne ne ine Gluconate Gluconate Gluconate 0.12 % 0.12 % 0.12 % Albuterol Albuterol No 2{puffs QID Albuterol Sulfate HFA Sulfate HFA _as_nee Sulfate 108 (90 108 (90 ded} HFA 108 Base) Base) (90 Base) MCG/ACT MCG/ACT MCG/ACT Pantoprazol Pantoprazol No 1{table QD Pantoprazo e Sodium 40 e Sodium 40 t} le Sodium MG MG 40 MG Nitroglycer Nitroglycer No Nitroglyce in 0.4 MG in 0.4 MG rin 0.4 MG Flonase 50 Flonase 50 No 2{spray QD Flonase 50 MCG/ACT MCG/ACT _in_eac MCG/ACT h_nostr il} Blood Blood No Blood Glucose Glucose Glucose Test Strip Test Strip Test Strip Sucralfate Sucralfate No 1{table Sucralfate 1 GM 1 GM t_as_ne 1 GM eded} Lovastatin Lovastatin No QD Lovastatin 20 mg 20 mg 20 mg Metoprolol Metoprolol No BID Metoprolol Tartrate 25 Tartrate 25 Tartrate mg mg 25 mg Januvia 100 Januvia 100 No 1{table QD Januvia MG MG t} 100 MG Levothyroxi Levothyroxi No QD Levothyrox ne Sodium ne Sodium ine Sodium 50 MCG 50 MCG 50 MCG Tradjenta 5 Tradjenta 5 No 1{table QD Tradjenta MG MG t} 5 MG Cetirizine Cetirizine No 1{table Cetirizine HCl 10 MG HCl 10 MG t} HCl 10 MG Bactrim DS Bactrim DS No 1{table BID Bactrim DS 800-160 MG 800-160 MG t} 800-160 MG Glimepiride Glimepiride No 1{table QD Glimepirid 1 MG 1 MG t} e 1 MG Fluticasone Fluticasone No Fluticason Propionate Propionate e 50 MCG/ACT 50 MCG/ACT Propionate 50 MCG/ACT Famotidine Famotidine No 1{table Famotidine 20 MG 20 MG t} 20 MG EQ Allergy EQ Allergy No EQ Allergy Relief Relief Relief (Cetirizine (Cetirizine (Cetirizin ) 10 MG ) 10 MG e) 10 MG Lantus Lantus No QD Lantus SoloStar SoloStar SoloStar 100 UNIT/ML 100 UNIT/ML 100 UNIT/ML Lisinopril Lisinopril No 1{table QD Lisinopril 5 MG 5 MG t} 5 MG Metoprolol Metoprolol No BID Metoprolol Tartrate 25 Tartrate 25 Tartrate mg mg 25 mg Lovastatin Lovastatin No QD Lovastatin 20 mg 20 mg 20 mg Lisinopril Lisinopril No 1{table QD Lisinopril 5 MG 5 MG t} 5 MG Bactrim DS Bactrim DS No 1{table BID Bactrim DS 800-160 MG 800-160 MG t} 800-160 MG Pantoprazol Pantoprazol No 1{table QD Pantoprazo e Sodium 40 e Sodium 40 t} le Sodium MG MG 40 MG Famotidine Famotidine No 1{table Famotidine 20 MG 20 MG t} 20 MG Fluticasone Fluticasone No Fluticason Propionate Propionate e 50 MCG/ACT 50 MCG/ACT Propionate 50 MCG/ACT Diclofenac Diclofenac No TID Diclofenac Sodium 1 % Sodium 1 % Sodium 1 % Lantus Lantus No QD Lantus SoloStar SoloStar SoloStar 100 UNIT/ML 100 UNIT/ML 100 UNIT/ML Cetirizine Cetirizine No 1{table Cetirizine HCl 10 MG HCl 10 MG t} HCl 10 MG Flonase 50 Flonase 50 No 2{spray QD Flonase 50 MCG/ACT MCG/ACT _in_eac MCG/ACT h_nostr il} Blood Blood No Blood Glucose Glucose Glucose Test Strip Test Strip Test Strip Glimepiride Glimepiride No 1{table QD Glimepirid 1 MG 1 MG t} e 1 MG Albuterol Albuterol No 2{puffs QID Albuterol Sulfate HFA Sulfate HFA _as_nee Sulfate 108 (90 108 (90 ded} HFA 108 Base) Base) (90 Base) MCG/ACT MCG/ACT MCG/ACT Januvia 100 Januvia 100 No 1{table QD Januvia MG MG t} 100 MG Nitroglycer Nitroglycer No Nitroglyce in 0.4 MG in 0.4 MG rin 0.4 MG Chlorhexidi Chlorhexidi No Chlorhexid ne ne ine Gluconate Gluconate Gluconate 0.12 % 0.12 % 0.12 % Levothyroxi Levothyroxi No QD Levothyrox ne Sodium ne Sodium ine Sodium 50 MCG 50 MCG 50 MCG Sucralfate Sucralfate No 1{table Sucralfate 1 GM 1 GM t_as_ne 1 GM eded} Tradjenta 5 Tradjenta 5 No 1{table QD Tradjenta MG MG t} 5 MG EQ Allergy EQ Allergy No EQ Allergy Relief Relief Relief (Cetirizine (Cetirizine (Cetirizin ) 10 MG ) 10 MG e) 10 MG Metoprolol Metoprolol No BID Metoprolol Tartrate 25 Tartrate 25 Tartrate mg mg 25 mg Lovastatin Lovastatin No QD Lovastatin 20 mg 20 mg 20 mg Lisinopril Lisinopril No 1{table QD Lisinopril 5 MG 5 MG t} 5 MG Bactrim DS Bactrim DS No 1{table BID Bactrim DS 800-160 MG 800-160 MG t} 800-160 MG Pantoprazol Pantoprazol No 1{table QD Pantoprazo e Sodium 40 e Sodium 40 t} le Sodium MG MG 40 MG Famotidine Famotidine No 1{table Famotidine 20 MG 20 MG t} 20 MG Fluticasone Fluticasone No Fluticason Propionate Propionate e 50 MCG/ACT 50 MCG/ACT Propionate 50 MCG/ACT Diclofenac Diclofenac No TID Diclofenac Sodium 1 % Sodium 1 % Sodium 1 % Lantus Lantus No QD Lantus SoloStar SoloStar SoloStar 100 UNIT/ML 100 UNIT/ML 100 UNIT/ML Cetirizine Cetirizine No 1{table Cetirizine HCl 10 MG HCl 10 MG t} HCl 10 MG Flonase 50 Flonase 50 No 2{spray QD Flonase 50 MCG/ACT MCG/ACT _in_eac MCG/ACT h_nostr il} Blood Blood No Blood Glucose Glucose Glucose Test Strip Test Strip Test Strip Glimepiride Glimepiride No 1{table QD Glimepirid 1 MG 1 MG t} e 1 MG Albuterol Albuterol No 2{puffs QID Albuterol Sulfate HFA Sulfate HFA _as_nee Sulfate 108 (90 108 (90 ded} HFA 108 Base) Base) (90 Base) MCG/ACT MCG/ACT MCG/ACT Januvia 100 Januvia 100 No 1{table QD Januvia MG MG t} 100 MG Nitroglycer Nitroglycer No Nitroglyce in 0.4 MG in 0.4 MG rin 0.4 MG Chlorhexidi Chlorhexidi No Chlorhexid ne ne ine Gluconate Gluconate Gluconate 0.12 % 0.12 % 0.12 % Levothyroxi Levothyroxi No QD Levothyrox ne Sodium ne Sodium ine Sodium 50 MCG 50 MCG 50 MCG Sucralfate Sucralfate No 1{table Sucralfate 1 GM 1 GM t_as_ne 1 GM eded} Tradjenta 5 Tradjenta 5 No 1{table QD Tradjenta MG MG t} 5 MG EQ Allergy EQ Allergy No EQ Allergy Relief Relief Relief (Cetirizine (Cetirizine (Cetirizin ) 10 MG ) 10 MG e) 10 MG Metoprolol Metoprolol No BID Metoprolol Tartrate 25 Tartrate 25 Tartrate mg mg 25 mg Lovastatin Lovastatin No QD Lovastatin 20 mg 20 mg 20 mg Lisinopril Lisinopril No 1{table QD Lisinopril 5 MG 5 MG t} 5 MG Bactrim DS Bactrim DS No 1{table BID Bactrim DS 800-160 MG 800-160 MG t} 800-160 MG Pantoprazol Pantoprazol No 1{table QD Pantoprazo e Sodium 40 e Sodium 40 t} le Sodium MG MG 40 MG Famotidine Famotidine No 1{table Famotidine 20 MG 20 MG t} 20 MG Fluticasone Fluticasone No Fluticason Propionate Propionate e 50 MCG/ACT 50 MCG/ACT Propionate 50 MCG/ACT Diclofenac Diclofenac No TID Diclofenac Sodium 1 % Sodium 1 % Sodium 1 % Lantus Lantus No QD Lantus SoloStar SoloStar SoloStar 100 UNIT/ML 100 UNIT/ML 100 UNIT/ML Cetirizine Cetirizine No 1{table Cetirizine HCl 10 MG HCl 10 MG t} HCl 10 MG Flonase 50 Flonase 50 No 2{spray QD Flonase 50 MCG/ACT MCG/ACT _in_eac MCG/ACT h_nostr il} Blood Blood No Blood Glucose Glucose Glucose Test Strip Test Strip Test Strip Glimepiride Glimepiride No 1{table QD Glimepirid 1 MG 1 MG t} e 1 MG Albuterol Albuterol No 2{puffs QID Albuterol Sulfate HFA Sulfate HFA _as_nee Sulfate 108 (90 108 (90 ded} HFA 108 Base) Base) (90 Base) MCG/ACT MCG/ACT MCG/ACT Januvia 100 Januvia 100 No 1{table QD Januvia MG MG t} 100 MG Nitroglycer Nitroglycer No Nitroglyce in 0.4 MG in 0.4 MG rin 0.4 MG Chlorhexidi Chlorhexidi No Chlorhexid ne ne ine Gluconate Gluconate Gluconate 0.12 % 0.12 % 0.12 % Levothyroxi Levothyroxi No QD Levothyrox ne Sodium ne Sodium ine Sodium 50 MCG 50 MCG 50 MCG Sucralfate Sucralfate No 1{table Sucralfate 1 GM 1 GM t_as_ne 1 GM eded} Tradjenta 5 Tradjenta 5 No 1{table QD Tradjenta MG MG t} 5 MG EQ Allergy EQ Allergy No EQ Allergy Relief Relief Relief (Cetirizine (Cetirizine (Cetirizin ) 10 MG ) 10 MG e) 10 MG Pantoprazol Pantoprazol No 1{table QD Pantoprazo e Sodium 40 e Sodium 40 t} le Sodium MG MG 40 MG Levothyroxi Levothyroxi No QD Levothyrox ne Sodium ne Sodium ine Sodium 50 MCG 50 MCG 50 MCG Diclofenac Diclofenac No TID Diclofenac Sodium 1 % Sodium 1 % Sodium 1 % Bactrim DS Bactrim DS No 1{table BID Bactrim DS 800-160 MG 800-160 MG t} 800-160 MG Lisinopril Lisinopril No 1{table QD Lisinopril 5 MG 5 MG t} 5 MG Famotidine Famotidine No 1{table Famotidine 20 MG 20 MG t} 20 MG Fluticasone Fluticasone No Fluticason Propionate Propionate e 50 MCG/ACT 50 MCG/ACT Propionate 50 MCG/ACT Metoprolol Metoprolol No Metoprolol Tartrate 25 Tartrate 25 Tartrate MG MG 25 MG Lantus Lantus No QD Lantus SoloStar SoloStar SoloStar 100 UNIT/ML 100 UNIT/ML 100 UNIT/ML Flonase 50 Flonase 50 No 2{spray QD Flonase 50 MCG/ACT MCG/ACT _in_eac MCG/ACT h_nostr il} Blood Blood No Blood Glucose Glucose Glucose Test Strip Test Strip Test Strip Januvia 100 Januvia 100 No 1{table QD Januvia MG MG t} 100 MG Lovastatin Lovastatin No Lovastatin 20 MG 20 MG 20 MG Cetirizine Cetirizine No 1{table Cetirizine HCl 10 MG HCl 10 MG t} HCl 10 MG Nitroglycer Nitroglycer No Nitroglyce in 0.4 MG in 0.4 MG rin 0.4 MG Chlorhexidi Chlorhexidi No Chlorhexid ne ne ine Gluconate Gluconate Gluconate 0.12 % 0.12 % 0.12 % Glimepiride Glimepiride No 1{table QD Glimepirid 1 MG 1 MG t} e 1 MG Albuterol Albuterol No 2{puffs QID Albuterol Sulfate HFA Sulfate HFA _as_nee Sulfate 108 (90 108 (90 ded} HFA 108 Base) Base) (90 Base) MCG/ACT MCG/ACT MCG/ACT Tradjenta 5 Tradjenta 5 No 1{table QD Tradjenta MG MG t} 5 MG EQ Allergy EQ Allergy No EQ Allergy Relief Relief Relief (Cetirizine (Cetirizine (Cetirizin ) 10 MG ) 10 MG e) 10 MG Sucralfate Sucralfate No Sucralfate 1 GM 1 GM 1 GM Pantoprazol Pantoprazol No 1{table QD Pantoprazo e Sodium 40 e Sodium 40 t} le Sodium MG MG 40 MG Chlorhexidi Chlorhexidi No Chlorhexid ne ne ine Gluconate Gluconate Gluconate 0.12 % 0.12 % 0.12 % Levothyroxi Levothyroxi No QD Levothyrox ne Sodium ne Sodium ine Sodium 50 MCG 50 MCG 50 MCG Diclofenac Diclofenac No TID Diclofenac Sodium 1 % Sodium 1 % Sodium 1 % Lisinopril Lisinopril No 1{table QD Lisinopril 5 MG 5 MG t} 5 MG Bactrim DS Bactrim DS No 1{table BID Bactrim DS 800-160 MG 800-160 MG t} 800-160 MG Metoprolol Metoprolol No Metoprolol Tartrate 25 Tartrate 25 Tartrate MG MG 25 MG Famotidine Famotidine No 1{table Famotidine 20 MG 20 MG t} 20 MG Lantus Lantus No QD Lantus SoloStar SoloStar SoloStar 100 UNIT/ML 100 UNIT/ML 100 UNIT/ML Flonase 50 Flonase 50 No 2{spray QD Flonase 50 MCG/ACT MCG/ACT _in_eac MCG/ACT h_nostr il} Blood Blood No Blood Glucose Glucose Glucose Test Strip Test Strip Test Strip Januvia 100 Januvia 100 No 1{table QD Januvia MG MG t} 100 MG Lovastatin Lovastatin No Lovastatin 20 MG 20 MG 20 MG Cetirizine Cetirizine No 1{table Cetirizine HCl 10 MG HCl 10 MG t} HCl 10 MG Nitroglycer Nitroglycer No Nitroglyce in 0.4 MG in 0.4 MG rin 0.4 MG Fluticasone Fluticasone No Fluticason Propionate Propionate e 50 MCG/ACT 50 MCG/ACT Propionate 50 MCG/ACT Glimepiride Glimepiride No 1{table QD Glimepirid 1 MG 1 MG t} e 1 MG Albuterol Albuterol No 2{puffs QID Albuterol Sulfate HFA Sulfate HFA _as_nee Sulfate 108 (90 108 (90 ded} HFA 108 Base) Base) (90 Base) MCG/ACT MCG/ACT MCG/ACT Tradjenta 5 Tradjenta 5 No 1{table QD Tradjenta MG MG t} 5 MG EQ Allergy EQ Allergy No EQ Allergy Relief Relief Relief (Cetirizine (Cetirizine (Cetirizin ) 10 MG ) 10 MG e) 10 MG Sucralfate Sucralfate No Sucralfate 1 GM 1 GM 1 GM Famotidine Famotidine No 1{table Famotidine 20 MG 20 MG t} 20 MG Lisinopril Lisinopril No 1{table QD Lisinopril 5 MG 5 MG t} 5 MG Tradjenta 5 Tradjenta 5 No 1{table QD Tradjenta MG MG t} 5 MG Levothyroxi Levothyroxi No QD Levothyrox ne Sodium ne Sodium ine Sodium 50 MCG 50 MCG 50 MCG Lovastatin Lovastatin No Lovastatin 20 MG 20 MG 20 MG EQ Allergy EQ Allergy No EQ Allergy Relief Relief Relief (Cetirizine (Cetirizine (Cetirizin ) 10 MG ) 10 MG e) 10 MG Sucralfate Sucralfate No Sucralfate 1 GM 1 GM 1 GM Fluticasone Fluticasone No Fluticason Propionate Propionate e 50 MCG/ACT 50 MCG/ACT Propionate 50 MCG/ACT Cetirizine Cetirizine No 1{table Cetirizine HCl 10 MG HCl 10 MG t} HCl 10 MG Glimepiride Glimepiride No 1{table QD Glimepirid 1 MG 1 MG t} e 1 MG Blood Blood No Blood Glucose Glucose Glucose Test Strip Test Strip Test Strip Bactrim DS Bactrim DS No 1{table BID Bactrim DS 800-160 MG 800-160 MG t} 800-160 MG Pantoprazol Pantoprazol No 1{table QD Pantoprazo e Sodium 40 e Sodium 40 t} le Sodium MG MG 40 MG Lantus Lantus No QD Lantus SoloStar SoloStar SoloStar 100 UNIT/ML 100 UNIT/ML 100 UNIT/ML Diclofenac Diclofenac No TID Diclofenac Sodium 1 % Sodium 1 % Sodium 1 % Chlorhexidi Chlorhexidi No Chlorhexid ne ne ine Gluconate Gluconate Gluconate 0.12 % 0.12 % 0.12 % Metoprolol Metoprolol No Metoprolol Tartrate 25 Tartrate 25 Tartrate MG MG 25 MG Januvia 100 Januvia 100 No 1{table QD Januvia MG MG t} 100 MG Nitroglycer Nitroglycer No Nitroglyce in 0.4 MG in 0.4 MG rin 0.4 MG Albuterol Albuterol No 2{puffs QID Albuterol Sulfate HFA Sulfate HFA _as_nee Sulfate 108 (90 108 (90 ded} HFA 108 Base) Base) (90 Base) MCG/ACT MCG/ACT MCG/ACT Flonase 50 Flonase 50 No 2{spray QD Flonase 50 MCG/ACT MCG/ACT _in_eac MCG/ACT h_nostr il} Famotidine Famotidine No 1{table Famotidine 20 MG 20 MG t} 20 MG Lisinopril Lisinopril No 1{table QD Lisinopril 5 MG 5 MG t} 5 MG Tradjenta 5 Tradjenta 5 No 1{table QD Tradjenta MG MG t} 5 MG Levothyroxi Levothyroxi No QD Levothyrox ne Sodium ne Sodium ine Sodium 50 MCG 50 MCG 50 MCG Lovastatin Lovastatin No Lovastatin 20 MG 20 MG 20 MG EQ Allergy EQ Allergy No EQ Allergy Relief Relief Relief (Cetirizine (Cetirizine (Cetirizin ) 10 MG ) 10 MG e) 10 MG Sucralfate Sucralfate No Sucralfate 1 GM 1 GM 1 GM Fluticasone Fluticasone No Fluticason Propionate Propionate e 50 MCG/ACT 50 MCG/ACT Propionate 50 MCG/ACT Cetirizine Cetirizine No 1{table Cetirizine HCl 10 MG HCl 10 MG t} HCl 10 MG Glimepiride Glimepiride No 1{table QD Glimepirid 1 MG 1 MG t} e 1 MG Blood Blood No Blood Glucose Glucose Glucose Test Strip Test Strip Test Strip Bactrim DS Bactrim DS No 1{table BID Bactrim DS 800-160 MG 800-160 MG t} 800-160 MG Pantoprazol Pantoprazol No 1{table QD Pantoprazo e Sodium 40 e Sodium 40 t} le Sodium MG MG 40 MG Lantus Lantus No QD Lantus SoloStar SoloStar SoloStar 100 UNIT/ML 100 UNIT/ML 100 UNIT/ML Diclofenac Diclofenac No TID Diclofenac Sodium 1 % Sodium 1 % Sodium 1 % Chlorhexidi Chlorhexidi No Chlorhexid ne ne ine Gluconate Gluconate Gluconate 0.12 % 0.12 % 0.12 % Metoprolol Metoprolol No Metoprolol Tartrate 25 Tartrate 25 Tartrate MG MG 25 MG Januvia 100 Januvia 100 No 1{table QD Januvia MG MG t} 100 MG Nitroglycer Nitroglycer No Nitroglyce in 0.4 MG in 0.4 MG rin 0.4 MG Albuterol Albuterol No 2{puffs QID Albuterol Sulfate HFA Sulfate HFA _as_nee Sulfate 108 (90 108 (90 ded} HFA 108 Base) Base) (90 Base) MCG/ACT MCG/ACT MCG/ACT Flonase 50 Flonase 50 No 2{spray QD Flonase 50 MCG/ACT MCG/ACT _in_eac MCG/ACT h_nostr il} Lantus Lantus No QD Lantus SoloStar SoloStar SoloStar 100 UNIT/ML 100 UNIT/ML 100 UNIT/ML Bactrim DS Bactrim DS No 1{table BID Bactrim DS 800-160 MG 800-160 MG t} 800-160 MG Nitroglycer Nitroglycer No Nitroglyce in 0.4 MG in 0.4 MG rin 0.4 MG Sucralfate Sucralfate No Sucralfate 1 GM 1 GM 1 GM Flonase 50 Flonase 50 No 2{spray QD Flonase 50 MCG/ACT MCG/ACT _in_eac MCG/ACT h_nostr il} Januvia 100 Januvia 100 No 1{table QD Januvia MG MG t} 100 MG Levothyroxi Levothyroxi No QD Levothyrox ne Sodium ne Sodium ine Sodium 50 MCG 50 MCG 50 MCG Fluticasone Fluticasone No Fluticason Propionate Propionate e 50 MCG/ACT 50 MCG/ACT Propionate 50 MCG/ACT Albuterol Albuterol No 2{puffs QID Albuterol Sulfate HFA Sulfate HFA _as_nee Sulfate 108 (90 108 (90 ded} HFA 108 Base) Base) (90 Base) MCG/ACT MCG/ACT MCG/ACT Chlorhexidi Chlorhexidi No Chlorhexid ne ne ine Gluconate Gluconate Gluconate 0.12 % 0.12 % 0.12 % Cetirizine Cetirizine No 1{table Cetirizine HCl 10 MG HCl 10 MG t} HCl 10 MG Famotidine Famotidine No 1{table Famotidine 20 MG 20 MG t} 20 MG Lisinopril Lisinopril No 1{table QD Lisinopril 5 MG 5 MG t} 5 MG Glimepiride Glimepiride No 1{table QD Glimepirid 1 MG 1 MG t} e 1 MG Metoprolol Metoprolol No Metoprolol Tartrate 25 Tartrate 25 Tartrate MG MG 25 MG Lovastatin Lovastatin No Lovastatin 20 MG 20 MG 20 MG Cetirizine Cetirizine No 1{table Cetirizine HCl 10 MG HCl 10 MG t} HCl 10 MG Blood Blood No Blood Glucose Glucose Glucose Test Strip Test Strip Test Strip Diclofenac Diclofenac No TID Diclofenac Sodium 1 % Sodium 1 % Sodium 1 % Tradjenta 5 Tradjenta 5 No 1{table QD Tradjenta MG MG t} 5 MG Pantoprazol Pantoprazol No 1{table QD Pantoprazo e Sodium 40 e Sodium 40 t} le Sodium MG MG 40 MG EQ Allergy EQ Allergy No EQ Allergy Relief Relief Relief (Cetirizine (Cetirizine (Cetirizin ) 10 MG ) 10 MG e) 10 MG Lantus Lantus No QD Lantus SoloStar SoloStar SoloStar 100 UNIT/ML 100 UNIT/ML 100 UNIT/ML Bactrim DS Bactrim DS No 1{table BID Bactrim DS 800-160 MG 800-160 MG t} 800-160 MG Nitroglycer Nitroglycer No Nitroglyce in 0.4 MG in 0.4 MG rin 0.4 MG Sucralfate Sucralfate No Sucralfate 1 GM 1 GM 1 GM Flonase 50 Flonase 50 No 2{spray QD Flonase 50 MCG/ACT MCG/ACT _in_eac MCG/ACT h_nostr il} Januvia 100 Januvia 100 No 1{table QD Januvia MG MG t} 100 MG Levothyroxi Levothyroxi No QD Levothyrox ne Sodium ne Sodium ine Sodium 50 MCG 50 MCG 50 MCG Fluticasone Fluticasone No Fluticason Propionate Propionate e 50 MCG/ACT 50 MCG/ACT Propionate 50 MCG/ACT Albuterol Albuterol No 2{puffs QID Albuterol Sulfate HFA Sulfate HFA _as_nee Sulfate 108 (90 108 (90 ded} HFA 108 Base) Base) (90 Base) MCG/ACT MCG/ACT MCG/ACT Chlorhexidi Chlorhexidi No Chlorhexid ne ne ine Gluconate Gluconate Gluconate 0.12 % 0.12 % 0.12 % Cetirizine Cetirizine No 1{table Cetirizine HCl 10 MG HCl 10 MG t} HCl 10 MG Famotidine Famotidine No 1{table Famotidine 20 MG 20 MG t} 20 MG Lisinopril Lisinopril No 1{table QD Lisinopril 5 MG 5 MG t} 5 MG Glimepiride Glimepiride No 1{table QD Glimepirid 1 MG 1 MG t} e 1 MG Metoprolol Metoprolol No Metoprolol Tartrate 25 Tartrate 25 Tartrate MG MG 25 MG Lovastatin Lovastatin No Lovastatin 20 MG 20 MG 20 MG Cetirizine Cetirizine No 1{table Cetirizine HCl 10 MG HCl 10 MG t} HCl 10 MG Blood Blood No Blood Glucose Glucose Glucose Test Strip Test Strip Test Strip Diclofenac Diclofenac No TID Diclofenac Sodium 1 % Sodium 1 % Sodium 1 % Tradjenta 5 Tradjenta 5 No 1{table QD Tradjenta MG MG t} 5 MG Pantoprazol Pantoprazol No 1{table QD Pantoprazo e Sodium 40 e Sodium 40 t} le Sodium MG MG 40 MG EQ Allergy EQ Allergy No EQ Allergy Relief Relief Relief (Cetirizine (Cetirizine (Cetirizin ) 10 MG ) 10 MG e) 10 MG Cetirizine Cetirizine No 1{table Cetirizine HCl 10 MG HCl 10 MG t} HCl 10 MG Tradjenta 5 Tradjenta 5 No 1{table QD Tradjenta MG MG t} 5 MG Flonase 50 Flonase 50 No 2{spray QD Flonase 50 MCG/ACT MCG/ACT _in_eac MCG/ACT h_nostr il} Lisinopril Lisinopril No 1{table QD Lisinopril 5 MG 5 MG t} 5 MG EQ Allergy EQ Allergy No EQ Allergy Relief Relief Relief (Cetirizine (Cetirizine (Cetirizin ) 10 MG ) 10 MG e) 10 MG Diclofenac Diclofenac No TID Diclofenac Sodium 1 % Sodium 1 % Sodium 1 % Albuterol Albuterol No 2{puffs QID Albuterol Sulfate HFA Sulfate HFA _as_nee Sulfate 108 (90 108 (90 ded} HFA 108 Base) Base) (90 Base) MCG/ACT MCG/ACT MCG/ACT Pantoprazol Pantoprazol No 1{table QD Pantoprazo e Sodium 40 e Sodium 40 t} le Sodium MG MG 40 MG Famotidine Famotidine No 1{table Famotidine 20 MG 20 MG t} 20 MG Allopurinol Allopurinol 2021- No 1{table QD Allopurino 100 MG 100 MG 09-25 t} l 100 MG 00:00 :00 Allopurinol Allopurinol 2021- No 1{table QD Allopurino 100 MG 100 MG 09-25 t} l 100 MG 00:00 :00 Allopurinol Allopurinol 2021- No 1{table QD Allopurino 100 MG 100 MG 09-25 t} l 100 MG 00:00 :00 Allopurinol Allopurinol 2022- No 1{table QD Allopurino 100 MG 100 MG 09-25 t} l 100 MG 00:00 :00 Allopurinol Allopurinol 2022- No 1{table QD Allopurino 100 MG 100 MG 09-25 t} l 100 MG 00:00 :00 Allopurinol Allopurinol 2022- No 1{table QD Allopurino 100 MG 100 MG 09-25 t} l 100 MG 00:00 :00 Allopurinol Allopurinol 2022- No 1{table QD Allopurino 100 MG 100 MG 09-25 t} l 100 MG 00:00 :00 Allopurinol Allopurinol 2022- No 1{table QD Allopurino 100 MG 100 MG 09-25 t} l 100 MG 00:00 :00 Allopurinol Allopurinol 2022- No 1{table QD Allopurino 100 MG 100 MG 09-25 t} l 100 MG 00:00 :00 Allopurinol Allopurinol 2022- No 1{table QD Allopurino 100 MG 100 MG 09-25 t} l 100 MG 00:00 :00 Allopurinol Allopurinol 2022- No 1{table QD Allopurino 100 MG 100 MG 09-25 t} l 100 MG 00:00 :00 Allopurinol Allopurinol 2022- No 1{table QD Allopurino 100 MG 100 MG 09-25 t} l 100 MG 00:00 :00 Allopurinol Allopurinol 2022- No 1{table QD Allopurino 100 MG 100 MG 09-25 t} l 100 MG 00:00 :00 Allopurinol Allopurinol 2- No 1{table QD Allopurino 100 MG 100 MG 09-25 t} l 100 MG 00:00 :00 Immunizations Ordered Filled Immunization Date Status Comments Sourc e Immunization Name Name FLUZONE HIGH DOSE FLUZONE HIGH DOSE 2021-06-02 Completed [facility] - OVER 65 OVER 65 15:49:00 [facility] FLUZONE HIGH DOSE FLUZONE HIGH DOSE 2021-06-02 Completed [facility] - OVER 65 OVER 65 15:49:00 [facility] FLUZONE HIGH DOSE FLUZONE HIGH DOSE 2021-06-02 Completed [facility] - OVER 65 OVER 65 15:49:00 [facility] FLUZONE HIGH DOSE FLUZONE HIGH DOSE 2021-06-02 Completed [facility] - OVER 65 OVER 65 15:49:00 [facility] FLUZONE HIGH DOSE FLUZONE HIGH DOSE 2021-06-02 Completed [facility] - OVER 65 OVER 65 15:49:00 [facility] FLUZONE HIGH DOSE FLUZONE HIGH DOSE 2021-06-02 Completed [facility] - OVER 65 OVER 65 15:49:00 [facility] FLUZONE HIGH DOSE FLUZONE HIGH DOSE 2021-06-02 Completed [facility] - OVER 65 OVER 65 15:49:00 [facility] FLUZONE HIGH DOSE FLUZONE HIGH DOSE 2021-06-02 Completed [facility] - OVER 65 OVER 65 15:49:00 [facility] FLUZONE HIGH DOSE FLUZONE HIGH DOSE 2021-06-02 Completed [facility] - OVER 65 OVER 65 15:49:00 [facility] FLUZONE HIGH DOSE FLUZONE HIGH DOSE 2021-06-02 Completed [facility] - OVER 65 OVER 65 15:49:00 [facility] FLUZONE HIGH DOSE FLUZONE HIGH DOSE 2021-06-02 Completed [facility] - OVER 65 OVER 65 15:49:00 [facility] FLUZONE HIGH DOSE FLUZONE HIGH DOSE 2021-06-02 Completed [facility] - OVER 65 OVER 65 15:49:00 [facility] FLUZONE HIGH DOSE FLUZONE HIGH DOSE 2021-06-02 Completed [facility] - OVER 65 OVER 65 15:49:00 [facility] FLUZONE HIGH DOSE FLUZONE HIGH DOSE 2021-06-02 Completed [facility] - OVER 65 OVER 65 15:49:00 [facility] FLUZONE HIGH DOSE FLUZONE HIGH DOSE 2021-06-02 Completed [facility] - OVER 65 OVER 65 15:49:00 [facility] FLUZONE HIGH DOSE FLUZONE HIGH DOSE 2021-06-02 Completed [facility] - OVER 65 OVER 65 15:49:00 [facility] FLUZONE HIGH DOSE FLUZONE HIGH DOSE 2021-06-02 Completed [facility] - OVER 65 OVER 65 15:49:00 [facility] FLUZONE HIGH DOSE FLUZONE HIGH DOSE 2021-06-02 Completed [facility] - OVER 65 OVER 65 15:49:00 [facility] FLUZONE HIGH DOSE FLUZONE HIGH DOSE 2021-06-02 Completed [facility] - OVER 65 OVER 65 15:49:00 [facility] FLUZONE HIGH DOSE FLUZONE HIGH DOSE 2021-06-02 Completed [facility] - OVER 65 OVER 65 15:49:00 [facility] FLUZONE HIGH DOSE FLUZONE HIGH DOSE 2021-06-02 Completed [facility] - OVER 65 OVER 65 15:49:00 [facility] FLUZONE HIGH DOSE FLUZONE HIGH DOSE 2021-06-02 Completed [facility] - OVER 65 OVER 65 15:49:00 [facility] FLUZONE HIGH DOSE FLUZONE HIGH DOSE 2021-06-02 Completed [facility] - OVER 65 OVER 65 15:49:00 [facility] FLUZONE HIGH DOSE FLUZONE HIGH DOSE 2021-06-02 Completed [facility] - OVER 65 OVER 65 15:49:00 [facility] FLUZONE HIGH DOSE FLUZONE HIGH DOSE 2021-06-02 Completed [facility] - OVER 65 OVER 65 15:49:00 [facility] FLUZONE HIGH DOSE FLUZONE HIGH DOSE 2021-06-02 Completed [facility] - OVER 65 OVER 65 15:49:00 [facility] FLUZONE HIGH DOSE FLUZONE HIGH DOSE 2021-06-02 Completed [facility] - OVER 65 OVER 65 15:49:00 [facility] FLUZONE HIGH DOSE FLUZONE HIGH DOSE 2021-06-02 Completed [facility] - OVER 65 OVER 65 15:49:00 [facility] Moderna COVID-19 Moderna COVID-19 2021-01-18 [facility] Vacc[facility] Vaccine 15:42:00 [facility] Moderna COVID-19 Moderna COVID-19 2021-01-18 Completed [facility] Vaccine Vaccine 15:42:00 [facility] Moderna COVID-19 Moderna COVID-19 2021-01-18 Completed [facility] Vaccine Vaccine 15:42:00 [facility] Moderna COVID-19 Moderna COVID-19 2021-01-18 Completed [facility] Vaccine Vaccine 15:42:00 [facility] Moderna COVID-19 Moderna COVID-19 2021-01-18 Completed [facility] Vaccine Vaccine 15:42:00 [facility] Moderna COVID-19 Moderna COVID-19 2021-01-18 Completed [facility] Vaccine Vaccine 15:42:00 [facility] Moderna COVID-19 Moderna COVID-19 2021-01-18 Completed [facility] Vaccine Vaccine 15:42:00 [facility] Moderna COVID-19 Moderna COVID-19 2021-01-18 Completed [facility] Vaccine Vaccine 15:42:00 [facility] Moderna COVID-19 Moderna COVID-19 2021-01-18 Completed [facility] Vaccine Vaccine 15:42:00 [facility] Moderna COVID-19 Moderna COVID-19 2021-01-18 Completed [facility] Vaccine Vaccine 15:42:00 [facility] Moderna COVID-19 Moderna COVID-19 2021-01-18 Completed [facility] Vaccine Vaccine 15:42:00 [facility] Moderna COVID-19 Moderna COVID-19 2021-01-18 Completed [facility] Vaccine Vaccine 15:42:00 [facility] Moderna COVID-19 Moderna COVID-19 2021-01-18 Completed [facility] - Vaccine Vaccine 15:42:00 [facility] Moderna COVID-19 Moderna COVID-19 2021-01-18 Completed [facility] - Vaccine Vaccine 15:42:00 [facility] Moderna COVID-19 Moderna COVID-19 2021-01-18 Completed [facility] - Vaccine Vaccine 15:42:00 [facility] Moderna COVID-19 Moderna COVID-19 2021-01-18 Completed [facility] - Vaccine Vaccine 15:42:00 [facility] Moderna COVID-19 Moderna COVID-19 2021-01-18 Completed [facility] - Vaccine Vaccine 15:42:00 [facility] Moderna COVID-19 Moderna COVID-19 2021-01-18 Completed [facility] - Vaccine Vaccine 15:42:00 [facility] Moderna COVID-19 Moderna COVID-19 2021-01-18 Completed [facility] - Vaccine Vaccine 15:42:00 [facility] Moderna COVID-19 Moderna COVID-19 2021-01-18 Completed [facility] - Vaccine Vaccine 15:42:00 [facility] Moderna COVID-19 Moderna COVID-19 2021-01-18 Completed [facility] - Vaccine Vaccine 15:42:00 [facility] Moderna COVID-19 Moderna COVID-19 2021-01-18 Completed [facility] - Vaccine Vaccine 15:42:00 [facility] Moderna COVID-19 Moderna COVID-19 2020-12-30 Completed [facility] - Vaccine Vaccine 08:59:00 [facility] Moderna COVID-19 Moderna COVID-19 2020-12-30 Completed [facility] - Vaccine Vaccine 08:59:00 [facility] Moderna COVID-19 Moderna COVID-19 2020-12-30 Completed [facility] - Vaccine Vaccine 08:59:00 [facility] Moderna COVID-19 Moderna COVID-19 2020-12-30 Completed [facility] - Vaccine Vaccine 08:59:00 [facility] Moderna COVID-19 Moderna COVID-19 2020-12-30 Completed [facility] - Vaccine Vaccine 08:59:00 [facility] Moderna COVID-19 Moderna COVID-19 2020-12-30 Completed [facility] - Vaccine Vaccine 08:59:00 [facility] Moderna COVID-19 Moderna COVID-19 2020-12-30 Completed [facility] - Vaccine Vaccine 08:59:00 [facility] Moderna COVID-19 Moderna COVID-19 2020-12-30 Completed [facility] - Vaccine Vaccine 08:59:00 [facility] Moderna COVID-19 Moderna COVID-19 2020-12-30 Completed [facility] - Vaccine Vaccine 08:59:00 [facility] Moderna COVID-19 Moderna COVID-19 2020-12-30 Completed [facility] - Vaccine Vaccine 08:59:00 [facility] Moderna COVID-19 Moderna COVID-19 2020-12-30 Completed [facility] - Vaccine Vaccine 08:59:00 [facility] Moderna COVID-19 Moderna COVID-19 2020-12-30 Completed [facility] - Vaccine Vaccine 08:59:00 [facility] Moderna COVID-19 Moderna COVID-19 2020-12-30 Completed [facility] - Vaccine Vaccine 08:59:00 [facility] Moderna COVID-19 Moderna COVID-19 2020-12-30 Completed [facility] - Vaccine Vaccine 08:59:00 [facility] Moderna COVID-19 Moderna COVID-19 2020-12-30 Completed [facility] - Vaccine Vaccine 08:59:00 [facility] Moderna COVID-19 Moderna COVID-19 2020-12-30 Completed [facility] - Vaccine Vaccine 08:59:00 [facility] Moderna COVID-19 Moderna COVID-19 2020-12-30 Completed [facility] - Vaccine Vaccine 08:59:00 [facility] Moderna COVID-19 Moderna COVID-19 2020-12-30 Completed [facility] - Vaccine Vaccine 08:59:00 [facility] Moderna COVID-19 Moderna COVID-19 2020-12-30 Completed [facility] - Vaccine Vaccine 08:59:00 [facility] Moderna COVID-19 Moderna COVID-19 2020-12-30 Completed [facility] - Vaccine Vaccine 08:59:00 [facility] Moderna COVID-19 Moderna COVID-19 2020-12-30 Completed [facility] - Vaccine Vaccine 08:59:00 [facility] Moderna COVID-19 Moderna COVID-19 2020-12-30 Completed [facility] - Vaccine Vaccine 08:59:00 [facility] Moderna COVID-19 Moderna COVID-19 2020-12-30 Completed [facility] - Vaccine Vaccine 08:59:00 [facility] Moderna COVID-19 Moderna COVID-19 2020-12-30 Completed [facility] - Vaccine Vaccine 08:59:00 [facility] Moderna COVID-19 Moderna COVID-19 2020-12-30 Completed [facility] - Vaccine Vaccine 08:59:00 [facility] Moderna COVID-19 Moderna COVID-19 2020-12-30 Completed [facility] - Vaccine Vaccine 08:59:00 [facility] Moderna COVID-19 Moderna COVID-19 2020-12-30 Completed [facility] - Vaccine Vaccine 08:59:00 [facility] Moderna COVID-19 Moderna COVID-19 2020-12-30 Completed [facility] - Vaccine Vaccine 08:59:00 [facility] Moderna COVID-19 Moderna COVID-19 2020-12-30 Completed [facility] - Vaccine Vaccine 08:59:00 [facility] Moderna COVID-19 Moderna COVID-19 2020-12-28 Completed [facility] - Vaccine Vaccine 15:42:00 [facility] Moderna COVID-19 Moderna COVID-19 2020-12-28 Completed [facility] - Vaccine Vaccine 15:42:00 [facility] Moderna COVID-19 Moderna COVID-19 2020-12-28 Completed [facility] - Vaccine Vaccine 15:42:00 [facility] Moderna COVID-19 Moderna COVID-19 2020-12-28 Completed [facility] - Vaccine Vaccine 15:42:00 [facility] Moderna COVID-19 Moderna COVID-19 2020-12-28 Completed [facility] - Vaccine Vaccine 15:42:00 [facility] Moderna COVID-19 Moderna COVID-19 2020-12-28 Completed [facility] - Vaccine Vaccine 15:42:00 [facility] Influenza Virus 2016-05-17 Completed [facility] IM [facility]+ 00:00:00 [facility] Influenza Virus 2016-05-17 Completed [facility] IM 3+ 00:00:00 [facility] Influenza Virus 2016-05-17 Completed [facility] Vaccine [facility] IM 3+ 00:00:00 [facility] Influenza Virus 2016-05-17 Completed [facility] Vacc[facility] IM 3+ 00:00:00 [facility] Influenza Virus 2016-05-17 Completed [facility] Vaccine [facility] IM 3+ 00:00:00 [facility] Influenza Virus 2016-05-17 Completed [facility] Vaccine [facility] IM 3+ 00:00:00 [facility] Influenza Virus 2016-05-17 Completed [facility] Vaccine [facility] IM 3+ 00:00:00 [facility] Influenza Virus 2016-05-17 Completed [facility] Vaccine [facility] IM 3+ 00:00:00 [facility] Influenza Virus 2016-05-17 Completed [facility] Vaccine [facility] IM 3+ 00:00:00 [facility] Influenza Virus 2016-05-17 Completed [facility] Vaccine [facility] IM 3+ 00:00:00 [facility] Influenza Virus 2016-05-17 Completed [facility] Vaccine [facility] IM 3+ 00:00:00 [facility] Influenza Virus 2016-05-17 Completed [facility] Vaccine [facility] IM 3+ 00:00:00 [facility] Influenza Virus 2015-05-11 Completed [facility] Vaccine [facility] IM 3+ 00:00:00 [facility] Pneumococcal 2015-05-11 Completed [facility] Polysaccharide, 00:00:00 [place] [facility] [place] [facility] PPSV23 (PNEUMOVAX) [facility] Influenza Virus 2015-05-11 Completed [facility] Vaccine [facility] IM 3+ 00:00:00 [facility] Pneumococcal 2015-05-11 Completed [facility] Polysaccharide, 00:00:00 [place] [facility] [place] [facility] PPSV23 (PNEUMOVAX) [facility] Influenza Virus 2015-05-11 Completed [facility] Vaccine Quad IM 3+ 00:00:00 [facility] Pneumococcal 2015-05-11 Completed [facility] Polysaccharide, 00:00:00 [place] [facility] [place] [facility] PPSV23 (PNEUMOVAX) [place] Influenza Virus 2015-05-11 Completed [facility] Vaccine Quad IM 3+ 00:00:00 [facility] Pneumococcal 2015-05-11 Completed [facility] Polysaccharide, 00:00:00 [place] [facility] [place] [facility] PPSV23 (PNEUMOVAX) [facility] Influenza Virus 2015-05-11 Completed [facility] Vaccine [facility] IM 3+ 00:00:00 [facility] Pneumococcal 2015-05-11 Completed [facility] Polysaccharide, 00:00:00 [place] [facility] PPSV23 (PNEUMOVAX) [facility] Influenza Virus 2015-05-11 Completed [facility] Vaccine Quad IM 3+ 00:00:00 [facility] Pneumococcal 2015-05-11 Completed [facility] Polysaccharide, 00:00:00 [place] [facility] PPSV23 (PNEUMOVAX) [facility] Influenza Virus 2015-05-11 Completed [facility] Vaccine [facility] IM 3+ 00:00:00 [facility] Pneumococcal 2015-05-11 Completed [facility] f Polysaccharide, 00:00:00 [place] [facility] PPSV23 (PNEUMOVAX) [facility] Influenza Virus 2015-05-11 Completed [facility] Vaccine Quad IM 3+ 00:00:00 [facility] Pneumococcal 2015-05-11 Completed [facility] Polysaccharide, 00:00:00 [place] [facility] [place] [facility] PPSV23 (PNEUMOVAX) [facility] Influenza Virus 2015-05-11 Completed [facility] Vaccine Quad IM 3+ 00:00:00 [facility] Pneumococcal 2015-05-11 Completed [facility] f Polysaccharide, 00:00:00 [place] [facility] PPSV23 (PNEUMOVAX) [facility] Influenza Virus 2015-05-11 Completed [facility] Vaccine Quad IM 3+ 00:00:00 [facility] Pneumococcal 2015-05-11 Completed [facility] f Polysaccharide, 00:00:00 [place] [facility] PPSV23 (PNEUMOVAX) [facility] Influenza Virus 2015-05-11 Completed [facility] Vaccine Quad IM 3+ 00:00:00 [facility] Pneumococcal 2015-05-11 Completed [facility] f Polysaccharide, 00:00:00 [place] [facility] PPSV23 (PNEUMOVAX) [facility] Influenza Virus 2015-05-11 Completed [facility] Vaccine Quad IM 3+ 00:00:00 [facility] Pneumococcal 2015-05-11 Completed [facility] Polysaccharide, 00:00:00 [place] [facility] PPSV23 (PNEUMOVAX) Branch Zoster(Zostavax)( 2015-02-11 Completed [facility] 00:[facility]:00 [place] [facility] Zoster(Zostavax)( 2015-02-11 Completed Unive rsity of ingles) 00:00:00 [facility] Zoster(Zostavax)( 2015-02-11 Completed Unive rsity of ingles) 00:00:00 [facility] Zoster(Zostavax)( 2015-02-11 Completed Unive rsity of ingles) 00:00:00 [facility] Zoster(Zostavax)( 2015-02-11 Completed Unive rsity of ingles) 00:00:00 [facility] Zoster(Zostavax)( 2015-02-11 Completed Unive rsity of ingles) 00:00:00 [facility] Zoster(Zostavax)( 2015-02-11 Completed Unive rsity of ingles) 00:00:00 [facility] Zoster(Zostavax)( 2015-02-11 Completed Unive rsity of ingles) 00:00:00 [facility] Zoster(Zostavax)( 2015-02-11 Completed Unive rsity of ingles) 00:00:00 [facility] Zoster(Zostavax)( 2015-02-11 Completed Unive rsity of ingles) 00:00:00 [facility] Zoster(Zostavax)( 2015-02-11 Completed Unive rsity of ingles) 00:00:00 [facility] Zoster(Zostavax)( 2015-02-11 Completed Unive rsity of ingles) 00:00:00 [facility] Vital Signs Vital Name Observation Time Observation Value Comments Source Systolic blood 2022-04-09 18:00:00 140 mm[Hg] Univer sity of pressure [facility] Diastolic blood 2022-04-09 18:00:00 82 mm[Hg] Unive rsity of pressure [facility] Heart rate 2022-04-09 18:00:00 63 /min Universi ty of [facility] Respiratory rate 2022-04-09 18:00:00 18 /min Univ ersity of [facility] Oxygen saturation in 2022-04-09 18:00:00 98 /min [facility] Arterial blood by [facility] Pulse oximetry Branch Body temperature 2022-04-09 17:41:00 36.56 Seda Univ [facility] Body weight 2022-04-09 17:41:00 78.472 [facility] BMI 2022-04-09 17:41:00 31.63 kg/m2 [facility] height 2022-03-27 09:40:00 63.50 [in_i] Common [facility] weight 2022-03-27 09:40:00 175.0 [lb_av] [facility] temperature 2022-03-27 09:40:00 97.3 [degF] Common [facility] bmi 2022-03-27 09:40:00 30.51 kg/m2 [facility] oximetry 2022-03-27 09:40:00 98 % [facility] respiratory rate 2022-03-27 09:40:00 16 /min Comm on [facility] blood pressure 2022-03-27 09:40:00 132 mm[Hg] Common [facility] - systolic [facility] blood pressure 2022-03-27 09:40:00 68 mm[Hg] Common [facility] - diastolic [facility] height 2022-03-14 10:00:00 64.00 [in_i] [facility] weight 2022-03-14 10:00:00 174.4 [lb_av] [facility] temperature 2022-03-14 10:00:00 97.2 [degF] Common [facility] bmi 2022-03-14 10:00:00 29.93 kg/m2 [facility] oximetry 2022-03-14 10:00:00 96 % [facility] respiratory rate 2022-03-14 10:00:00 16 /min Comm on [facility] blood pressure 2022-03-14 10:00:00 136 mm[Hg] Common [facility] - systolic [facility] blood pressure 2022-03-14 10:00:00 79 mm[Hg] Common [facility] - diastolic [facility] Respiratory rate 2022-03-01 14:42:00 18 /min Univ ersity of [facility] Heart rate 2022-03-01 14:41:00 70 /min [facility] [place] [facility] Oxygen saturation in 2022-03-01 14:41:00 99 /min University of Arterial blood by [facility] ramon Pulse oximetry Branch Systolic blood 2022-03-01 14:40:00 152 mm[Hg] Univer sity of pressure [facility] Diastolic blood 2022-03-01 14:40:00 80 mm[Hg] Unive rsity of pressure [facility] Body temperature 2022-03-01 14:25:00 36.83 Seda Univ ersity of [facility] Body height 2022-02-22 18:55:00 157.5 cm [facility] Body weight 2022-02-22 18:55:00 78.9 kg [facility] BMI 2022-02-22 18:55:00 31.81 kg/m2 [facility] Systolic blood 2022-03-01 12:51:00 161 mm[Hg] Univer sity of pressure [facility] Diastolic blood 2022-03-01 12:51:00 93 mm[Hg] Unive rsity of pressure [facility] Heart rate 2022-03-01 12:51:00 75 /min [facility] [place] [facility] Body temperature 2022-03-01 12:51:00 36.33 Seda Univ ersity of [facility] Respiratory rate 2022-03-01 12:51:00 14 /min Univ [facility] [place] [facility] Oxygen saturation in 2022-03-01 12:51:00 98 /min University of Arterial blood by [facility] Pulse oximetry Branch Body height 2022-02-22 18:55:00 157.5 cm [facility] Body weight 2022-02-22 18:55:00 78.9 kg [facility] [place] [facility] BMI 2022-02-22 18:55:00 31.81 kg/m2 Universi ty of [facility] Systolic blood 2022-02-15 14:49:00 164 mm[Hg] Univer sity of pressure [facility] Diastolic blood 2022-02-15 14:49:00 89 mm[Hg] Unive rsity of pressure [facility] Heart rate 2022-02-15 14:49:00 70 /min Universi ty of [facility] Respiratory rate 2022-02-15 14:49:00 10 /min Univ ersity of [facility] Branch Oxygen saturation in 2022-02-15 14:49:00 99 /min University of Arterial blood by [place] [facility] ramon Pulse oximetry Branch Body temperature 2022-02-15 12:46:00 36.56 Seda Univ ersity of [facility] Body height 2022-02-03 15:18:00 157.5 cm Universi ty of [place] [facility] [place] Body weight 2022-02-03 15:18:00 78.9 kg Universi ty of [place] [facility] [place] BMI 2022-02-03 15:18:00 31.81 kg/m2 Universi ty of [facility] Systolic blood 2022-02-15 12:53:00 160 mm[Hg] Univer sity of pressure [facility] Diastolic blood 2022-02-15 12:53:00 89 mm[Hg] Unive rsity of pressure [place] [facility] [place] Heart rate 2022-02-15 12:46:00 80 /min Universi ty of [facility] Body temperature 2022-02-15 12:46:00 36.56 Seda Univ ersity of [place] [facility] [place] Respiratory rate 2022-02-15 12:46:00 15 /min Univ ersity of [facility] Oxygen saturation in 2022-02-15 12:46:00 99 /min University of Arterial blood by [place] [facility] ramon Pulse oximetry Branch Body height 2022-02-03 15:18:00 157.5 cm Universi ty of [facility] Body weight 2022-02-03 15:18:00 78.9 kg Universi ty of [place] [facility] [place] [facility] BMI 2022-02-03 15:18:00 31.81 kg/m2 Universi ty of [place] [facility] [place] height 2022-01-02 09:00:00 64.00 [in_i] Common S pirit - [facility] weight 2022-01-02 09:00:00 172.2 [lb_av] Common [facility] - [facility] temperature 2022-01-02 09:00:00 97.2 [degF] Common [facility] bmi 2022-01-02 09:00:00 29.55 kg/m2 Common [facility] oximetry 2022-01-02 09:00:00 98 % [facility] respiratory rate 2022-01-02 09:00:00 16 /min Comm on [facility] blood pressure 2022-01-02 09:00:00 117 mm[Hg] Common [facility] - systolic [facility] blood pressure 2022-01-02 09:00:00 72 mm[Hg] Common [facility] - diastolic [facility] height 2021-11-08 13:00:00 64.00 [in_i] Common [facility] weight 2021-11-08 13:00:00 170.6 [lb_av] [facility] temperature 2021-11-08 13:00:00 97.7 [degF] Common [facility] bmi 2021-11-08 13:00:00 29.28 kg/m2 [facility] oximetry 2021-11-08 13:00:00 98 % [facility] respiratory rate 2021-11-08 13:00:00 18 /min Comm on [facility] blood pressure 2021-11-08 13:00:00 139 mm[Hg] Common [facility] - systolic [facility] blood pressure 2021-11-08 13:00:00 80 mm[Hg] Common [facility] - diastolic [facility] height 2021-10-07 14:20:00 64.00 [in_i] Common [facility] weight 2021-10-07 14:20:00 170.2 [lb_av] [facility] temperature 2021-10-07 14:20:00 97.3 [degF] [facility] bmi 2021-10-07 14:20:00 29.21 kg/m2 Common [facility] oximetry 2021-10-07 14:20:00 100 % Common [facility] respiratory rate 2021-10-07 14:20:00 16 /min Comm on [facility] blood pressure 2021-10-07 14:20:00 121 mm[Hg] Common [facility] - systolic [facility] blood pressure 2021-10-07 14:20:00 86 mm[Hg] Common [facility] - diastolic [facility] height 2021-10-07 14:00:00 64.00 [in_i] Common [facility] weight 2021-10-07 14:00:00 170.2 [lb_av] [facility] temperature 2021-10-07 14:00:00 97.3 [degF] [facility] bmi 2021-10-07 14:00:00 29.21 kg/m2 [facility] oximetry 2021-10-07 14:00:00 100 % [facility] respiratory rate 2021-10-07 14:00:00 16 /min Comm on [facility] blood pressure 2021-10-07 14:00:00 121 mm[Hg] [facility] systolic [facility] blood pressure 2021-10-07 14:00:00 86 mm[Hg] Common [facility] diastolic [facility] height 2021-07-14 13:00:00 64.00 [in_i] Common [facility] weight 2021-07-14 13:00:00 170.4 [lb_av] [facility] temperature 2021-07-14 13:00:00 98.0 [degF] Common [facility] bmi 2021-07-14 13:00:00 29.25 kg/m2 [facility] oximetry 2021-07-14 13:00:00 97 % [facility] respiratory rate 2021-07-14 13:00:00 17 /min Comm on [facility] blood pressure 2021-07-14 13:00:00 139 mm[Hg] [facility] - systolic [facility] blood pressure 2021-07-14 13:00:00 79 mm[Hg] [facility] - diastolic [facility] height 2021-06-06 16:20:00 64.00 [in_i] [facility] weight 2021-06-06 16:20:00 173.0 [lb_av] Common [facility] temperature 2021-06-06 16:20:00 97.2 [degF] Common S pirit [facility] bmi 2021-06-06 16:20:00 29.69 kg/m2 Common S [facility] oximetry 2021-06-06 16:20:00 97 % Common [facility] respiratory rate 2021-06-06 16:20:00 18 /min Comm on [facility] blood pressure 2021-06-06 16:20:00 120 mm[Hg] [facility] - systolic [facility] blood pressure 2021-06-06 16:20:00 85 mm[Hg] Common [facility] - diastolic [facility] height 2021-06-02 15:40:00 64.00 [in_i] Common S [facility] weight 2021-06-02 15:40:00 170.8 [lb_av] [facility] temperature 2021-06-02 15:40:00 97.1 [degF] Common S pirit [facility] bmi 2021-06-02 15:40:00 29.31 kg/m2 [facility]-02 15:40:00 96 % [facility] 2021-06-02 15:40:00 18 /min Comm on [facility] blood pressure 2021-06-02 15:40:00 124 mm[Hg] [facility] - systolic [facility] blood pressure 2021-06-02 15:40:00 80 mm[Hg] [facility] - diastolic [facility] height 2021-04-13 11:00:00 64.00 [in_i] Common S pirit - [facility] weight 2021-04-13 11:00:00 174 [lb_av] [facility] bmi 2021-04-13 11:00:00 29.86 kg/m2 [facility] S [facility] Procedures Procedure Date / Time Performing Source Performed Clinician CT TRAUMA HEAD WO CONTRAST 2022-04-09 Nely Scott [facility] 18:18:[address] TRAUMA CERVICAL SPINE WO 2022-04-09 Nely Scott [facility] CONTRAST 18:18:44 Medical Branch CONSENT/REFUSAL FOR DIAGNOSIS 2022-04-09 Doctor Christinassigned, [facility] AND TREATMENT 17:37:03 [place] [facility] PHACOEMULSIFICATION OF 2022-03-01 Nicolas Campa [facility] CATARACT WITH INTRAOCULAR 13:48:00 Medica l Branch LENS IMPLANT POCT GLUCOSE (AUTOMATED) 2022-03-01 Nicolas Campa [facility] 12:47:00 Medical Branch POCT GLUCOSE (AUTOMATED) 2022-03-01 Nicolas Campa [facility] 12:47:00 Medical Branch PATIENT QUESTIONNAIRE 2022-03-01 Doctor Unassfady, [facility] 05:01:00 [place] [facility] DAY SURGERY - ADC 2022-03-01 Doctor Unassigned, [facility] 05:01:00 [place] [facility] CONSENT/REFUSAL FOR DIAGNOSIS 2022-02-27 Doctor Unassigned, [facility] AND TREATMENT 20:46:38 [place] [facility] CONSENT/REFUSAL FOR DIAGNOSIS 2022-02-27 Doctor Unassigned, [facility] AND TREATMENT 20:46:38 [place] [facility] ASSIGNMENT OF BENEFITS 2022-02-27 Doctor Unassigned, [facility] 20:46:13 [place] [facility] ASSIGNMENT OF BENEFITS 2022-02-27 Doctor Unassfady, [facility] 20:46:13 [place] [facility] PHACOEMULSIFICATION OF 2022-02-15 Nicolas Campa [facility] CATARACT WITH INTRAOCULAR 13:55:00 Medica l Branch LENS IMPLANT POCT GLUCOSE (AUTOMATED) 2022-02-15 Nicolas Campa [facility] 12:58:00 Medical Branch POCT GLUCOSE (AUTOMATED) 2022-02-15 Nicolas Campa [facility] 12:58:00 Medical Branch ASSIGNMENT OF BENEFITS 2022-02-11 Doctor Unassigned, [facility] 13:57:55 [place] [facility] CBC WITH DIFF 2022-02-08 Nicolas Campa [facility] 18:45:00 Medical Branch Encounters Start End Encounter Admission Attending Care Care Encounter Source Date/Time Date/Time Type Type Clinicians Facility Department ID 2022-06-21 Outpatient [place], Na STLMLC STLMLC [id number] 2 Common 10:56:01 [facility] 2022-06-12 Outpatient Calixto, Na STLMLC STLMLC [id number] 2 Common 10:53:02 [facility] 2022-03-23 Outpatient [place], Na STLMLC STLMLC [id number] 2 Common 09:00:00 [facility] 2022-01-25 Outpatient R KATHY CAMPA OPH [id number] Univers 09:23:50 [facility] 2021-12-29 Outpatient [place], Na STLMLC STLMLC [id number] 2 Common 07:59:00 [facility] 2021-12-08 Outpatient [place], Na STLMLC STLMLC [id number] 2 Common 11:16:00 [facility] 2021-11-07 Outpatient [place], Na STLMLC STLMLC [id number] 2 Common 11:56:01 [facility] 2021-10-25 Outpatient [place], Na STLMLC STLMLC [id number] 2 Common 15:44:01 [facility] 2021-10-06 Outpatient [place], Na STLMLC STLMLC [id number] 2 Common 10:20:01 [facility] 2021-09-07 Outpatient [place], Na STLMLC STLMLC [id number] 2 Common 12:58:36 [facility] 2021-09-07 Outpatient [place], Na STLMLC STLMLC [id number] 2 Common 12:50:14 10228 [facility] 2021-09-07 Outpatient [place], Na STLMLC STLMLC [id number] 2 Common 12:45:37 [id number] [facility] 2021-09-07 Outpatient [place], Na STLMLC STLMLC [id number] 2 Common 12:36:24 [id number] [facility] 2021-09-07 Outpatient [place], Na STLMLC STLMLC [id number] 2 Common 12:30:55 [id number] [facility] 2021-09-07 Outpatient [place], Na STLMLC STLMLC [id number] 2 Common 12:16:19 [id number] [facility] 2021-09-07 Outpatient Henri Kin STLMLC STLMLC [id number] 02 Common 12:11:08 49824 [facility] 2021-09-07 Outpatient Henri, Kin STLMLC STLMLC [id number] 02 Common 12:09:44 [id number] [facility] 2021-09-07 Outpatient Henri Kin STLMLC STLMLC [id number] 02 Common 12:04:25 [id number] [facility] 2021-09-07 Outpatient Henri Kin STLMLC STLMLC [id number] 02 Common 12:03:00 [id number] [facility] 2021-09-07 Outpatient STLMLC STLMLC [id number] Common 11:59:43 [id number] [facility] 2021-09-07 Outpatient Millender, STLMLC STLMLC [id number] Common 11:25:13 Hollie 39854 [facility] 2021-09-07 Outpatient Millender, STLMLC STLMLC [id number] Common 11:02:15 Hollie 49716 [facility] 2021-09-07 Outpatient Millender, STLMLC STLMLC [id number] Common 11:01:49 Hollie 01372 [facility] 2022-07-19 2022-07-19 Outpatient [facility] [id number] Dam[place] 14:04:03 14:04:03 88799 F Alcides 2022-07-12 2022-07-13 [id number] [facility] 06:31:00 10:41:00 Ahmad 02 [facility] 2022-07-04 2022-07-04 (TEL) STLMLC STLMLC [id number] Co mmon 00:00:00 00:00:00 [facility] 2022-05-30 2022-05-30 (TEL) STLMLC STLMLC [id number] Co mmon 00:00:00 00:00:00 [facility] 2022-05-26 2022-05-26 (TEL) STLMLC STLMLC [id number] Co mmon 00:00:00 00:00:00 [facility] 2022-04-10 2022-04-10 (TEL) STLMLC STLMLC [id number] Co mmon 00:00:00 00:00:00 [facility] 2022-04-09 2022-04-09 Emergency X [facility] ERT [id number] Univers 12:43:00 14:01:00 NELY [facility] 2022-04-09 2022-04-09 Emergency [facility] [id number] Univers 12:43:00 14:01:00 Nely SCHREIBER [id number] ity of [place] [id number] [facility] [id number] [facility] 084 Branch 2022-04-09 2022-04-09 Orders Doctor LAURO [id number] Univers 00:00:00 00:00:00 Only Unassigned, LILA [id number] ity of [facility] [id number] [facility] [id number] [facility] 009 Branch 2022-03-27 2022-03-27 OFFICE STLMLC STLMLC [id number] Co mmon 00:00:00 00:00:00 VISIT [facility] 4 [facility] 2022-03-20 2022-03-20 (TEL) STLMLC STLMLC [id number] Co mmon 00:00:00 00:00:00 [facility] - [facility] 2022-03-14 2022 Inpatient EM Tayo, HCAPM INTE.02 [id number] [facility] 23:14:00 14:48:00 Nkoli [id number] [facility] 2022-03-14 2022 Inpatient EM Tayo, HCAPM INTE.02 [id number] [facility] 23:14:00 14:48:00 Nkoli 07 [facility] 2022-03-15 2022-03-15 Outpatient JJ CrCL LABO [id number] [facility] 06:33:00 06:33:00 Nkoli 61 [facility] 2022-03-14 2022-03-14 OFFICE STLMLC STLMLC [id number] Co mmon 00:00:00 00:00:00 VISIT Spirit ESTAB PT - CHI LEVEL 4 [facility] 2022-03-01 2022-03-01 Outpatient R [facility] OPH [id number] Univers 07:39:00 09:47:00 NICOLAS [facility] 2022-03-01 2022-03-01 [facility] [id number] Univers 07:39:00 09:47:00 Encounter Nicolas SCHREIBER [id number] [id number] [id number] [facility] 071 Branch 2022-03-01 2022-03-01 [facility] [id number] Univers 08:25:00 08:59:00 Nicolas SCHREIBER [id number] ity of [facility] [id number] [id number] [facility] 020 Branch 2022-02-27 2022-02-27 Laboratory Only, Adc Test [facility] 1.2.840. 114 [id number] Univers 15:00:00 15:15:00 Only Nicolas Campa 350.1.13.1 0 [id number] [id number] [facility] [address] [place] 2022-02-27 2022-02-27 Outpatient Melvin [facility] [id number] Univers 15:00:00 15:00:00 NICOLAS [facility] 2022-02-15 2022-02-15 [facility] [id number] Univers 07:36:00 09:56:00 NICOLAS nghiastella [facility] 2022-02-15 2022-02-15 [facility] [id number] Univers 07:36:00 09:56:00 Encounter Nicolas SCHREIBER [id number] [id number] [id number] [facility] 071 Branch 2022-02-15 2022-02-15 Surgery [facility] [id number] Univers 08:25:00 08:59:00 Nicolas SCHREIBER [id number] [id number] [id number] [facility] 020 Branch 2022-02-14 2022-02-14 [facility] [id number] Univers 14:15:00 14:15:00 NICOLAS [facility] 2022-02-14 2022-02-14 Outpatient [facility] [id number] Univers 14:15:00 14:15:00 NICOLAS [facility] 2022-02-14 2022-02-14 Operator Piper, Vicki Lab Main [facility] 1.2.8 40.114 [id number] Univers 11:30:00 11:45:00 Visit Nicolas Campa 350.1.13.1 0 [id number] [id number] [place] [address] 2022-02-14 2022-02-14 Outpatient Mel[facility] [id number] Univers 11:30:00 11:30:00 NICOLAS [facility] 2022-02-11 2022-02-11 Operator Piper, Adc Lab Main [facility] 1.2.8 40.114 [id number] Univers 09:00:00 09:15:00 Visit Sylvia Iglesias [id number] ity of [facility] [id number] [id number] [address] 2022-02-11 2022-02-11 Outpatient R [facility] [id number] Univers 09:00:00 09:00:00 SYLVIA [facility] 2022-02-11 2022-02-11 Laboratory Only, Adc Test [facility] 1.2.840. 114 [id number] Univers 08:45:00 09:00:00 Only Mirian Montalvo [id number] ity of [facility] [id number] [id number] [facility] [address] [place] 2022-02-11 2022-02-11 Orders Doctor LAURO 1.2.840.114 [id number] Univers 00:00:00 00:00:00 Only Unassigned, LILA [id number] ity of [place] [facility] [id number] Reese as [id number] [address] 2022-02-09 2022-02-09 (TEL[facility] [id number] Co mmon 00:00:00 00:00:00 [facility] 2022-02-08 2022-02-08 Operator Piper, Adc Lab Main [facility] 1.2.8 40.114 [id number] Univers 07:45:00 08:00:00 Visit Nicolas Campa 350.1.13.1 0 ity of [facility] [id number] [id number] [address] 2022-02-08 2022-02-08 Outpatient R [facility] [id number] Univers 07:45:00 07:45:00 NICOLAS [facility] 2022-02-082022-02-08 (TEL) STLC STLC [id number] Co mmon 00:00:00 00:00:00 [facility] 2022-02-08 2022-02-08 (TEL) STLMLC STLMLC [id number] Co mmon 00:00:00 00:00:00 [facility] 2022-01-30 2022-01-30 Outpatient R [facility] [id number] Univers 15:15:00 15:15:00 NICOLAS ity [facility] 2022-01-30 2022-01-30 Orders Doctor LAURO 1.2.840.114 [id number] 40 Univers 00:00:00 00:00:00 Only Unassigned, LILA [id number] [facility] [id number] Reese as [phone] [address] 2022-01-27 2022-01-27 (TEL) [facility] [id number] Co mmon 00:00:00 00:00:00 [facility] 2022-01-23 2022-01-23 Operator Piper, Adc Lab Main [facility] 1.2.8 40.114 [id number] Univers 13:00:00 13:15:00 Visit Mirian Montalvo [id number] ity [facility] [id number] [place] [facility] [phone] Nd dical [address] 2022-01-23 2022-01-23 Outpatient R [facility] [id number] Univers 13:00:00 13:00:00 MIRIAN zurita [facility] 2022-01-17 2022-01-17 Outpatient R [facility] [id number] Univers 12:05:18 23:59:00 ity [facility] 2022-01-17 2022-01-17 Hospital Radiology [facility] 1.2.840.114 [id number] Univers 12:05:18 23:59:00 Steven SCHREIBER [id number] ity [facility] [id number] [place] [phone] [facility] [address] 2022-01-17 2022-01-17 Operator Piper, Adc Lab Main [facility] 1.2.8 40.114 [id number] Univers 12:00:00 12:15:00 Visit Mirian Montalvo MOISESMIESHA [id number] ity [facility] [id number] [facility] [phone] Me dical NAL [address] [facility] 2022-01-06 2022-01-06 (TEL) STLMLC STLMLC [id number] Co mmon 00:00:00 00:00:00 [facility] 2022-01-03 2022-01-03 Outpatient R [facility] [id number] Univers 11:52:59 23:59:00 ity of [facility] 2022-01-03 2022-01-03 Hospital Radiology [facility] 1.2.840.114 [id number] Univers 11:52:59 23:59:00 Encounter SPECIALTY [id number] ity of [id number] [phone] Nd dical VICTORY 800 [facility] 2022-01-02 2022-01-02 (TEL) STLMLC STLMLC [id number] Co mmon 00:00:00 00:00:00 [facility] 2022-01-02 2022-01-02 OFFICE STLMLC STLMLC [id number] Co mmon 00:00:00 00:00:00 VISIT [facility] LEVEL 4 [facility] 2021-12-27 2021-12-27 (TEL) STLMLC STLMLC [id number] Co mmon 00:00:00 00:00:00 [facility] 2021-12-23 2021-12-23 Hospital Radiology [facility] 1.2.840.114 [id number] Univers 14:17:19 23:59:00 Encounter SPECIALTY [id number] it[id number] [place] [phone] Nd dical VICTORY [address] [facility] 2021-12-23 2021-12-23 Outpatient R RADIOLOGY [facility] [id number] Univers 14:16:57 14:16:57 ity of [facility] 2021-12-23 2021-12-23 Hospital Radiology [facility] 1.2.840.114 [id number] Univers 14:16:57 14:16:57 Encounter SPECIALTY [id number] ity of [facility] [id number] [facility] AT [phone] Nd robert STEPHEN [address] [place] [address] 2021-12-06 2021-12-06 (TEL) STLMLC STLMLC [id number] Co mmon 00:00:00 00:00:00 [facility] 2021-11-17 2021-11-17 Hospital Radiology [facility] 1.2.840.114 [id number] Univers 13:17:58 23:59:00 Encounter [place] [id number] ity of [facility] [id number] [facility] [phone] [address] 2021-11-17 2021-11-17 [facility] Radiology [facility] 1.2.840.114 [id number] Univers 13:17:06 23:59:00 Encounter [place] [id number] ity of [place] 4.2.7.2.686 [facility] [phone] [address] 2021-11-17 2021-11-17 Outpatient R RADIOLOGY [facility] RAD [id number] Univers 13:17:06 23:59:00 ity of [facility] 2021-11-11 2021-11-11 (TEL) STLMLC STLMLC [id number] Co mmon 00:00:00 00:00:00 [facility] 2021-11-08 2021-11-08 OFFICE STLMLC STLMLC [id number] Co mmon 00:00:00 00:00:00 VISIT EST Spir it PT LEVEL 3 [facility] 2021-11-03 2021-11-03 Operator Piper, Adc Lab Main [facility] 1.2.8 40.114 [id number] Univers 14:15:00 14:30:00 Visit Mirian Montalvo [id number] ity of [place] 4.2.7.2.686 Sondra VINCENTIO [phone] [place] [address] [facility] 2021-11-03 2021-11-03 Outpatient Melvin MONTALVO, [facility] [id number] Univers 14:15:00 14:15:00 MIRIAN ity of [facility] 2021-11-03 2021-11-03 Orders Doctor LAURO 1.2.840.114 [id number] 00:00:00 00:00:00 Only Unassigned, LILA 350.1.13.10 ity of [facility] [id number] Reese as [phone] [place] [address] [address] 2021-10-24 2021-10-24 (TEL) STLMLC STLMLC [id number] Co mmon 00:00:00 00:00:00 [facility] - [facility] 2021-10-10 2021-10-10 (TEL) STLMLC STLMLC [id number] Co mmon 00:00:00 00:00:00 [facility] 2021-10-07 2021-10-07 SUB ANNUAL STLMLC STLMLC [id number] Common 00:00:00 00:00:00 MCR Spirit WELLNESS - CHI VISIT [facility] 2021-10-07 2021-10-07 OFFICE STLMLC STLMLC [id number] Co mmon 00:00:00 00:00:00 VISIT EST Spir it PT LEVEL 3 - [facility] 2021-07-14 2021-07-14 OFFICE STLMLC STLMLC [id number] Co mmon 00:00:00 00:00:00 VISIT Spirit ESTAB PT - CHI LEVEL 4 [facility] 2021-06-20 2021-06-20 (TEL) STLMLC STLMLC [id number] Co mmon 00:00:00 00:00:00 [facility] - [facility] 2021-06-10 2021-06-10 (TEL) STLMLC STLMLC [id number] Co mmon 00:00:00 00:00:00 [facility] - [facility] 2021-06-06 2021-06-06 (TEL) STLMLC STLMLC [id number] Co mmon 00:00:00 00:00:00 [facility] 2021-06-06 2021-06-06 OFFICE STLMLC STLMLC [id number] Co mmon 00:00:00 00:00:00 VISIT EST Spir it PT LEVEL 3 - [facility] 2021-06-02 2021-06-02 OFFICE STLMLC STLMLC [id number] Co mmon 00:00:00 00:00:00 VISIT EST Spir it PT LEVEL 3 [facility] 2021-04-13 2021-04-13 OFFICE STLMLC STLMLC [id number] Co mmon 00:00:00 00:00:00 VISIT [facility] PT [facility] LEVEL 4 [facility] 2021-04-05 2021-04-05 Outpatient STLMLC STLMLC [id number] Common 00:00:00 00:00:00 [facility] 2021-03-01 2021-03-01 Outpatient STLMLC STLMLC [id number] Common 00:00:00 00:00:00 [facility] 2020-12-13 2020-12-13 Outpatient STLMLC STLMLC [id number] Common 00:00:00 00:00:00 [facility] 2020-11-21 2020-11-21 Outpatient STLMLC STLMLC [id number] Common 00:00:00 00:00:00 [facility] 2020-11-08 2020-11-08 Outpatient STLMLC STLMLC [id number] Common 00:00:00 00:00:00 [facility] 2020-10-14 2020-10-14 Outpatient STLMLC STLMLC [id number] Common 00:00:00 00:00:00 [facility] 2020-07-21 2020-07-21 Outpatient STLMLC STLMLC [id number] Common 00:00:00 00:00:00 [facility] 2020-06-29 2020-06-29 Outpatient STLMLC STLMLC [id number] Common 00:00:00 00:00:00 [facility] 2020-06-22 2020-06-22 Outpatient STLMLC STLMLC [id number] Common 00:00:00 00:00:00 [facility] 2020-04-27 2020-04-27 Out[facility] [id number] Common 15:47:00 15:47:[address] [facility] 2020-04-12 2020-04-[address] [facility] [id number] [id number] Common 11:12:00 11:12:00 [facility] 2020-04-06 2020-04-[address] [facility] [id number] [id number] Common 08:16:00 08:16:00 [facility] 2020-03-11 2020-03-11 Out[facility] [id number] Common 09:40:00 09:40:[address] [facility] 2020-01-16 2020-01-16 Out[facility] [id number] Common 15:20:00 15:20:[address] [facility] 2019-11-27 2019-11-27 Outpatient [facility] [id number] Common 10:51:00 10:51:[address] [facility] 2019-11-20 2019-11-20 Out[facility] [id number] Common 08:43:00 08:43:[address] [facility] 2019-11-18 2019-11-18 Outpatient [facility] [id number] Common 14:00:00 14:00:[address] [facility] 2019-11-18 2019-11-18 Out[facility] [id number] Common 10:06:00 10:06:[address] [facility] 2019-10-28 2019-10-28 Outpatient [facility] [id number] Common 16:14:00 16:14:[address] [facility] 2019-10-26 2019-10-26 Outpatient [facility] [id number] Common 23:58:00 23:58:[address] [facility] 2019-10-23 2019-10-23 Outpatient [facility] [id number] Common 08:30:00 08:30:[address] [facility] 2019-09-07 2019-09-07 Outpatient [facility] [id number] Common 02:09:00 02:09:[address] [facility] 2019-09-04 2019-09-04 Out[facility] [id number] Common 08:39:00 08:39:[address] [facility] 2019-09-03 2019-09-03 Outpatient [facility] [id number] Common 15:00:00 15:00:[address] [facility] 2019-08-05 2019-08-05 Out[facility] [id number] Common 08:20:00 08:20:[address] [facility] 2019-07-23 2019-07-23 Outpatient [facility] [id number] Common 11:48:00 11:48:[address] [facility] 2019-07-04 2019-07-04 Out[facility] [id number] Common 11:00:00 11:00:[address] [facility] 2019-06-16 2019-06-16 Outpatient Porfirio Monroy [id number] Common 14:52:00 14:52:00 Tamy Banuelos shannan DO [facility] 2019-06-05 2019-06-05 [facility] [id number] Common 12:07:00 12:07:[address] [facility] 2019-04-23 2019-04-23 Outpatient Buddy Cuevas [id number] Common 09:47:00 09:47:00 t [facility] Spir [address] Road [facility] 2019-04-15 2019-04-15 Outpatient Buddy Cuevas [id number] Common 13:00:00 13:00:00 t [facility] Spir [address] Road [facility] Results Test Description Test Time Test Comments Results Result Comments Source COAGULATION TIME ACTIVATED 2022-07-13 17:42:00 Test Item Value Reference Range Interpretation Comme nts COAGULATION TIME ACTIVATED (test code = ACT) 292 SECistat 74-125 H BASIC METABOLIC [id number] 09:30:00 Test Item Value Reference Range Interpretation Comments SODIUM (test code = 137 mmol/L 134-147 N NA) POTASSIUM (test 4.8 mmol/L 3.4-5.0 N code = K) CHLORIDE (test code 109 mmol/L 100-108 H = CL) CARBON DIOXIDE 21 mmol/L 21-32 N (test code = CO2) ANION GAP (test 7.0 GAP calc 4.0-15.0 N code = GAP) GLUCOSE (test code 244 MG/DL 70-110 H = GLU) BLOOD UREA NITROGEN 26 MG/DL 7-18 H (test code = BUN) GLOMERULAR 40 estGFR >60 L The Glomerular FILTRATION RATE Filtration R ate is a (test code = GFR) calculated parameterbased on serum Creatinin e, patient age and sex. GFR valuesless than 60 mL/min/1.73 squ are meters are mariola cative ofChronic Kidne y Disease. Values less than 15 mL/min/1.73squa re meters indicate Kidney failure. The calculation for GFR is based on the CK D-EPI (2020) calculat ion. This formulais race indifferent and is the recommended for booker for GFRby the N ational Kidney Foundati on for Adults.The GFR will not calculate i f the sex is unknown or if thepatient's ag e is <18 years. CREATININE (test 1.4 MG/DL 0.6-1.0 H code = CREAT) CALCIUM (test code 8.9 MG/DL 8.5-10.1 N = CA) GLUCOSE BEDSIDE [id number] 08:19:00 Test Item Value Reference Range Interpretation Comments GLUCOSE BEDSIDE TESTING (test code 159 mg/dL 70-110 H = GLUBED) GLUCOSE BEDSIDE [id number] 17:09:00 Test Item Value Reference Range Interpretation Comments GLUCOSE BEDSIDE TESTING (test code 166 mg/dL 70-110 H = GLUBED) COAGULATION TIME [id number] 10:57:00 Test Item Value Reference Range Interpretation Comments COAGULATION TIME ACTIVATED (test 305 SECistat 74-125 H code = ACT) - XR CHEST 1 [id number] 07:51:00 [facility] 1950 Sex: F Name: ANNIE CLAROS [facility] : 1950 Age/S: 72 / F [id number] [address] Unit #: [id number] Loc: [place] [address] Phys: Caitlin Wood MD Acct: [id number] Dis Date: Status: [facility] PHONE #: [phone] Exam Date: 07/12/2022 0799 FAX #: Reason: PRE OP EXAMS: CPT: [id number] XR CHEST 1 V [id number] Fluoro Time: DAP (Gy m2): Air Kerma (mGy): EXAM: - XR CHEST 1 V Location code:C3 HISTORY: PRE OP COMPARISON: 03/14/2022 FINDINGS: Single AP view of the chest is provided. Heart size and vascularity are within normal limits. The lungs are clear of focal consolidation. No effusion, pneumothorax, or acute osseous abnormality. IMPRESSION: 1. No radiographic evidence of acute cardiopulmonary process. at 0751 Reported and signed by: Abiodun Gómez MD CC: Caitlin Serrano MD PAGE 1 Signed Report Name: ANNIE CLAROS : 1950 Age/S: 72 / F [id number] [address] Unit #: [id number] Loc: [place] [address] Phys:Caitlin Wood MD Acct: [id number] Dis Date: Status: REG SDC PHONE #: [phone] Exam Date: 07/12/2022 0738 FAX #: Reason: PRE OP EXAMS: CPT: [id number] XR CHEST 1 V [id number] Fluoro Time: DAP (Gy m2): Air Kerma (mGy): (Continued) Technologist: Tata Serna, RT,(R),(CT) Trnscb Date/Time: 07/12/2022(075) [email or web address] Orig Print D/T: S: 07/12/2022 (0750) PAGE 2 Signed ReportPROTHROMBIN [id number] 14:37:00 Test Item Value Reference Range Interpretation Comments PT PATIENT (test 10.4 SECONDS 9.3-12.9 N code = PTP) INTERNATIONAL NORMAL 0.91 INR Unit 0.8-1.2 N TARGE T INR BY RATIO (test code = INDICATIO N Indication INR) INR1. Prophylax is of venous thrombos is 2.0 - 3.0 (orthope dic surgery), Proph ylaxis of venous throm bosis (other than hig h-risk surgery), Treat ment of Deep Vein Thrombosis/Pulm onary Embolism, Preve ntion of systemic emb olism - Tissue heart va lves, Acute Myocardia l Infarction (to prevent systemic emboli sm), Valvular heart disease, Acute Myocardial Infa rction (to prevent sys temic embolism), Valv ular heart disease, Atrial Fibrillation, Bileaflet mecha nical valve in aortic position.2. Mec hanical prosthetic valv es (high risk), 2. 5 - 3.5 Presence of Lup us Anticoagulant o r Antiphospholipi d Antibodies, Pre vention of systemic emb olism - Acute Myocardia l Infarction (to prevent recurrent infar ct). THROMBOPLASTIN TIME [id number] 14:37:00 Test Item Value Reference Range Interpretation Comments THROMBOPLASTIN TIME PARTIAL 31.4 SECONDS 26-35 N (test code = PTT) BASIC METABOLIC [id number] 13:58:00 Test Item Value Reference Range Interpretation Comments SODIUM (test code = 134 mmol/L 134-147 N NA) POTASSIUM (test 5.0 mmol/L 3.4-5.0 N code = K) CHLORIDE (test code 103 mmol/L 100-108 N = CL) CARBON DIOXIDE 25 mmol/L 21-32 N (test code = CO2) ANION GAP (test 6.0 GAP calc 4.0-15.0 N code = GAP) GLUCOSE (test code 252 MG/DL 70-110 H = GLU) BLOOD UREA NITROGEN 34 MG/DL 7-18 H (test code = BUN) GLOMERULAR 32 estGFR >60 L The Glomerular FILTRATION RATE Filtration R ate is a (test code = GFR) calculated parameterbased on serum Creatinin e, patient age and sex. GFR valuesless than 60 mL/min/1.73 squ are meters are mariola cative ofChronic Kidne y Disease. Values less than 15 mL/min/1.73squa re meters indicate Kidney failure. The calculation for GFR is based on the CK D-EPI (2020) calculat ion. This formulais race indifferent and is the recommended for booker for GFRby the N atformerly [facility] Kidney Foundati on for Adults.The GFR will not calculate i f the sex is unknown or if thepatient's ag e is <18 years. CREATININE (test 1.7 MG/DL 0.6-1.0 H code = CREAT) CALCIUM (test code 9.7 MG/DL 8.5-10.1 N = CA) CBC W/AUTO [id number] 13:57:00 Test Item Value Reference Range Interpretation Comments WHITE BLOOD CELL (test code = 7.2 K/mm3 3.5-11.0 N WBC) RED BLOOD CELL (test code = 4.13 M/mm3 4.70-6.10 L RBC) HEMOGLOBIN (test code = HGB) 12.8 G/DL 10.4-14.9 N HEMATOCRIT (test code = HCT) 36.9 % 31.5-44.1 N MEAN CELL VOLUME (test code = 89.3 Fl 84.5-98.6 N MCV) MEAN CELL HGB (test code = MCH) 31.0 pg 27.0-34.2 N MEAN CELL HGB CONCETRATION 34.7 G/DL 31.5-34.0 H (test code = MCHC) RED CELL DISTRIBUTION WIDTH 12.5 SD 11.5-14.5 N (test code = RDW) PLATELET COUNT (test code = 245 K/mm3 150-450 N PLT) MEAN PLATELET VOLUME (test code 11.00 fL 7.0-10.5 H = MPV) NEUTROPHIL % (test code = NT%) 65.7 % 40-76 N IMMATURE GRANULOCYTE % (test 0.4 % 0.0-5.0 N code = IG%) LYMPHOCYTE % (test code = LY%) 23.9 % 20.5-51.1 N MONOCYTE % (test code = MO%) 6.8 % 1.7-9.3 N EOSINOPHIL % (test code = EO%) 2.2 % 0.0-6.0 N BASOPHIL % (test code = BA%) 1.0 % 0.0-2.0 N NUCLEATED RBC % (test code = 0.0 /100WBC% 0.0-1.0 N NRBC%) NEUTROPHIL # (test code = NT#) 4.8 K/mm3 1.8-7.6 N IMMATURE GRANULOCYTE # (test 0.03 x10 3/uL 0.00-0.03 N code = IG#) LYMPHOCYTE # (test code = LY#) 1.7 K/mm3 0.6-3.2 N MONOCYTE # (test code = MO#) 0.5 K/mm3 0.3-1.1 N EOSINOPHIL # (test code = EO#) 0.2 K/mm3 0.0-0.4 N BASOPHIL # (test code = BA#) 0.1 K/mm3 0.0-0.1 N NUCLEATED RBC # (test code = 0.0 K/mm3 0.0-0.1 N NRBC#) MANUAL DIFF REQUIRED (test code NO DIFF/SCN CRITERIA = MDIFF) GLUCOSE BEDSIDE [id number] 11:36:00 Test Item Value Reference Range Interpretation Comments GLUCOSE BEDSIDE TESTING (test code 258 mg/dL 70-110 H = GLUBED) BASIC METABOLIC [id number] 09:00:00 Test Item Value Reference Range Interpretation Comments SODIUM (test code = NA) 134 mmol/L 134-147 N POTASSIUM (test code = K) 4.6 mmol/L 3.4-5.0 N CHLORIDE (test code = CL) 104 mmol/L 100-108 N CARBON DIOXIDE (test code = CO2) 22 mmol/L 21-32 N ANION GAP (test code = GAP) 8.0 GAP calc 4.0-15.0 N GLUCOSE (test code = GLU) 258 MG/DL 70-110 H BLOOD UREA NITROGEN (test code = 20 MG/DL 7-18 H BUN) GLOMERULAR FILTRATION RATE (test 36 estGFR >60 L code = GFR) CREATININE (test code = CREAT) 1.5 MG/DL 0.6-1.0 H CALCIUM (test code = CA) 9.8 MG/DL 8.5-10.1 N [id number] 09:00:00 Test Item Value Reference Range Interpretation Comments MAGNESIUM (test code = MAG) 1.8 MG/DL 1.8-2.4 N GLUCOSE BEDSIDE [id number] 08:04:00 Test Item Value Reference Range Interpretation Comments GLUCOSE BEDSIDE TESTING (test code 240 mg/dL 70-110 H = GLUBED) GLUCOSE BEDSIDE [id number] 20:51:00 Test Item Value Reference Range Interpretation Comments GLUCOSE BEDSIDE TESTING (test code 232 mg/dL 70-110 H = GLUBED) GLUCOSE BEDSIDE [id number] 08:24:00 Test Item Value Reference Range Interpretation Comments GLUCOSE BEDSIDE TESTING (test code 207 mg/dL 70-110 H = GLUBED) GLYCOSYLATED HEMOGLOBIN [id number] 06:51:00 Test Item Value Reference Range Interpretation Comments GLYCOSYLATED HEMOGLOBIN (HA1C) 9.2 % A1C 0.0-5.7 H (test code = GLYHGB) ESTIMATED AVERAGE GLUCOSE (test 217 MG/DLest code = EAG) BASIC METABOLIC [id number] 06:42:00 Test Item Value Reference Range Interpretation Comments SODIUM (test code = NA) 133 mmol/L 134-147 L POTASSIUM (test code = K) 4.5 mmol/L 3.4-5.0 N CHLORIDE (test code = CL) 101 mmol/L 100-108 N CARBON DIOXIDE (test code = CO2) 23 mmol/L 21-32 N ANION GAP (test code = GAP) 9.0 GAP calc 4.0-15.0 N GLUCOSE (test code = GLU) 230 MG/DL 70-110 H BLOOD UREA NITROGEN (test code = 20 MG/DL 7-18 H BUN) GLOMERULAR FILTRATION RATE (test 37 estGFR >60 L code = GFR) CREATININE (test code = CREAT) 1.5 MG/DL 0.6-1.0 H CALCIUM (test code = CA) 9.3 MG/DL 8.5-10.1 N LIPID PROFILE (CORONARY RISK)2022-03-16 06:42:00 Test Item Value Reference Range Interpretation Comments TRIGLYCERIDES (test 372 MG/DL 0-150 H code = TRIG) CHOLESTEROL (test 178 MG/DL 133-200 N code = CHOL) CHOLESTEROL/HDL 7.12 RATIO See_Comment RISK ASSOCIA ELICEO WITH RATIO (test code = CHOL/HDL RATIOS: RISK CHOLHDL) MALE FEMALE1/2 AVERAGE 3.43 3.27AVERAG E 4.97 4.442X AVERAGE 9.55 7.053X AVERAGE 23.39 11.04 NOTE THAT THE REFERENCE VALUE IS RELATED TO RISK LEVELS ASRECOMMENDED B Y THE [facility] . [Automated mess age] The system which [employer] nerated this result tra nsmitted reference range : 0-. The reference range was not used to interpr et this result as normal/abnormal . HDL CHOLESTEROL 25 MG/DL 40-59 L (test code = HDL) NON-HDL CHOLESTEROL 153 mg/dL <130 H (test code = NHDL) LIPOPROTEIN LDL 102 MG/DL 0-129 N <100 OPTIMAL 100 - 129 (test code = LDL) NEAR OPTIM AL/ABOVE [id number] - 15 9 [id number] - 189 HIGH>OR= 190 VE RY HIGHNOTE THAT G UIDELINES ARE PROVIDED BY NATIONAL CHOLESTEROLEDUC ATION PROGRAM ADULT T REATMENT PANEL III LDL/HDL (test code 4.08 Ratio See_Comment H [Automat ed message] The = LDL/HDL) system which [employer] nerated this result tra nsmitted reference range : 1.48-3.22 Avg. The reference range was not used to interpr et this result as normal/abnormal . [id number] 06:42:00 Test Item Value Reference Range Interpretation Comments MAGNESIUM (test code = MAG) 1.4 MG/DL 1.8-2.4 L NT PRO-BRAIN NATRIURETIC [id number] 06:38:00 Test Item Value Reference Range Interpretation Comments NT PRO-BRAIN NATRIURETIC PEPTI (test 75 PG/ML 0-100 N code = PROBNP) CBC W/AUTO [id number] 06:23:00 Test Item Value Reference Range Interpretation Comments WHITE BLOOD CELL (test code = 6.6 K/mm3 3.5-11.0 N WBC) RED BLOOD CELL (test code = 3.63 M/mm3 4.70-6.10 L RBC) HEMOGLOBIN (test code = HGB) 11.2 G/DL 10.4-14.9 N HEMATOCRIT (test code = HCT) 32.9 % 31.5-44.1 N MEAN CELL VOLUME (test code = 90.6 Fl 84.5-98.6 N MCV) MEAN CELL HGB (test code = MCH) 30.9 pg 27.0-34.2 N MEAN CELL HGB CONCETRATION 34.0 G/DL 31.5-34.0 N (test code = MCHC) RED CELL DISTRIBUTION WIDTH 12.9 SD 11.5-14.5 N (test code = RDW) PLATELET COUNT (test code = 203 K/mm3 150-450 N PLT) MEAN PLATELET VOLUME (test code 11.80 fL 7.0-10.5 H = MPV) NEUTROPHIL % (test code = NT%) 54.3 % 40-76 N IMMATURE GRANULOCYTE % (test 0.6 % 0.0-5.0 N code = IG%) LYMPHOCYTE % (test code = LY%) 29.7 % 20.5-51.1 N MONOCYTE % (test code = MO%) 9.2 % 1.7-9.3 N EOSINOPHIL % (test code = EO%) 5.4 % 0.0-6.0 N BASOPHIL % (test code = BA%) 0.8 % 0.0-2.0 N NUCLEATED RBC % (test code = 0.0 /100WBC% 0.0-1.0 N NRBC%) NEUTROPHIL # (test code = NT#) 3.6 K/mm3 1.8-7.6 N IMMATURE GRANULOCYTE # (test 0.04 x10 3/uL 0.00-0.03 H code = IG#) LYMPHOCYTE # (test code = LY#) 2.0 K/mm3 0.6-3.2 N MONOCYTE # (test code = MO#) 0.6 K/mm3 0.3-1.1 N EOSINOPHIL # (test code = EO#) 0.4 K/mm3 0.0-0.4 N BASOPHIL # (test code = BA#) 0.1 K/mm3 0.0-0.1 N NUCLEATED RBC # (test code = 0.0 K/mm3 0.0-0.1 N NRBC#) MANUAL DIFF REQUIRED (test code NO DIFF/SCN CRITERIA = MDIFF) GLUCOSE BEDSIDE [id number] 20:50:00 Test Item Value Reference Range Interpretation Comments GLUCOSE BEDSIDE TESTING (test code 223 mg/dL 70-110 H = GLUBED) GLUCOSE BEDSIDE [id number] 16:40:00 Test Item Value Reference Range Interpretation Comments GLUCOSE BEDSIDE TESTING (test code 272 mg/dL 70-110 H = GLUBED) - MRI BRAIN W/O [id number] 11:44:00 [facility] 1950 Sex: F FAX: Rosalinda Cr MD Camps: PM St: ADM --------- Name: ANNIE CLAROS [facility] : 1950 Age/S: [id number]/F [id number] [place] Unit #: [id number] Loc: [place] [address] Phys: Rosalinda Cr MD Acct: [id number] Dis Date: Status: ADM IN PHONE #: [phone] Exam Date: 03/15/2022 1137 FAX #: Reason: acute stroke EXAMS: CPT: [id number] MRI BRAIN W/O CONTRAST [id number] EXAM: - MRI BRAIN W/O CONTRAST INDICATION: acute stroke T18 TECHNIQUE: Multiplanar multisequence MR images of the brain were obtained without intravenous contrast. FINDINGS: Intra-axial structures, and extra-axial fluid spaces: No acute or subacute infarct, or intracranial hemorrhage seen. No mass effect, midline shift or hydrocephalus noted. Foci of high T2 signal identified scattered within the periventricular white matter, suggesting sequela of chronic small vessel ischemic disease. Cervicomedullary junction appears unremarkable. Visualized flow voids: appear unremarkable. Paranasal sinuses and mastoid air cells: Appear clear. Osseous structures: appear unremarkable. Orbits: Appear unremarkable. IMPRESSION: No acute intracranial process seen. ElectronicallySigned by Rishi Lance on 03/15/2022 at 1144 Reported and signed by: Delbert Lance M.D. CC: Rosalinda Cr MD Technologist: RT Toño(R)(MR) Transcribed Date/Time/By: 03/15/2022 (1148) :[email or web address] Orig Print D/T: S: 03/15/2022 (0381) PAGE 1 Signed Report GLUCOSE BEDSIDE [id number] 10:51:00 Test Item Value Reference Range Interpretation Comments GLUCOSE BEDSIDE TESTING (test code 135 mg/dL 70-110 H = GLUBED) UA RFLX MICR CULT IF [id number] 06:07:00 Test Item Value Reference Range Interpretation Comments UA COLOR (test code = COLU) YELLOW discript YEL/STRAW UA APPEARANCE (test code = CLEAR discript CLEAR APPU) UA GLUCOSE DIPSTICK (test NEGATIVE mg/dL NEG code = DGLUU) UA BILIRUBIN DIPSTICK (test NEGATIVE mg/dL NEG code = BILU) UA KETONE DIPSTICK (test NEGATIVE mg/dL NEG code = KETU) UA SPECIFIC GRAVITY (test <=1.005 SG 1.005-1.030 code = SGU) UA BLOOD DIPSTICK (test NEGATIVE mg/DL NEG code = FINN) UA PH DIPSTICK (test code = 6.0 pH UNITS 5.0-7.0 ANDRÉS) UA PROTEIN DIPSTICK (test NEGATIVE mg/dL NEG code = PROU) UA UROBILINIOGEN DIPSTICK 0.2 mg/dL <2.0 (test code = URO) UA NITRITE DIPSTICK (test NEGATIVE SCREEN NEG code = DAWN) UA LEUKOCYTE ESTERASE NEGATIVE Leuk/mcL NEGATIVE DIPSTICK (test code = LEUU) UA CULTURE NEEDED? (test Criteria Culture CHK code = UACULT) Indication for culture: Temperature > 100.4 FSOURCE OF URINE: CLEAN CATCH COVID 19 Asymptomatic IH [id number] 23:03:00 Test Item Value Reference Range Interpretation Comments COVID 19 Asymptomatic NEGATIVE Negative Per ma nufacturer, IH AG (test code = negative results should COVNONPUIAG) be treated aspresumptive a nd, if inconsistent wi th clinical signs andsymptoms or necessary for p atient management, juanjo uld betested with a n alternative mol ecular assay. Negative resultsdo not p reclude SARS-CoV-2 infe ction and should not be usedas the sole basis for patient man agement decisions. Nega tive results should be considered in t he context of apat ient's recent exposure s, history, presen ce of clinicalsigns a nd symptoms consis tent with COVID-19. - XR CHEST 1 [id number] 22:28:00 [facility] 1950 Sex: F [facility] 1950 Age/S: 71 / F [address] [address] [place] Unit #: [id number] Loc: [place] [address] Phys: Elina Starks DO Acct: [id number] Dis Date: Status: REG ER PHONE #: [phone] Exam Date: 03/14/20222208 FAX #: Reason: Code Stroke EXAMS: CPT: [id number] XR CHEST 1 V 07025 Fluoro Time: DAP (Gy m2): Air Kerma (mGy): EXAM: Chest x-ray, 1 view Dictation location: H10 COMPARISON: None INDICATION: Code Stroke DISCUSSION: No consolidation, pneumothorax, or pleural effusion isseen. The cardiomediastinal silhouette is within normal limits. No acute bony abnormalities are identified. IMPRESSION: No evidence of acute abnormality. at 2228 Reported and signed by: Lm Watts M.D. CC: Elina Starks DO PAGE 1 Signed Report Name: ANNIE CLAROS [place] : 1950 Age/S: 71 / F [address] [address] #: [id number] Loc: [place] [address] Phys: Denis Starksen Tanya DO Acct: [id number] Dis Date: Status: REG ER PHONE #: [phone] Exam Date: 03/14/20222208 FAX #: Reason: Code Stroke EXAMS: CPT: [id number] XR CHEST 1 V 59883 Fluoro Time: DAP (Gy m2): Air Kerma (mGy): (Continued) Technologist: Socrates Boone, RT(R) Trnscb Date/Time: 03/14/2022 (2227) [email or web address] Orig Print D/T: S: 03/14/2022(2231) PAGE 2 Signed Report- CT ANGIO [id number] 22:23:00 [facility] : 1950 Sex: F Name: ANNIE CLAROS [facility] [place] : 1950 Age/S: 71 / F [address] [address] [place] Unit #: [id number] Loc: [place] [address] Phys: Elina Starks DO Acct: [id number] Dis Date: Status: REG ER PHONE #: [phone] Exam Date: 03/14/20222199 FAX #: Reason: expressive aphasia EXAMS: CPT: [id number] CT ANGIO NECK [address] EXAM: CTA head with contrast and CTA neck with contrast Dictation location: H10 INDICATION: Expressive aphasia COMPARISON: CT head performed earlier the same day TECHNIQUE: Axial 2.5 mm images of the head and neck were obtained during the arterial phase after the injection of 100 mL Isovue-370 IV contrast. Coronal and sagittal MIP reformats were performed. DISCUSSION: CTA HEAD: Anterior circulation: The upper cervical, petrous, cavernous, and supraclinoid internal carotid arteries are widely patent. M1 arteries and branches are patent. The A1, anterior communicating, and A2 arteries are patent. No vascular malformation or aneurysm is seen. Posterior circulation: The left vertebral artery appears to be the sole supply to the basilar artery. The right vertebral artery appears diminutive and terminates at the plica. The vertebral arteries and branches, the basilar artery and branches, and P1 and P2 arteries are patent. No vascular malformation or aneurysm is seen. Other findings: Dural venous sinuses and deep veins appear patent. CTA NECK: Right side: The right common carotid artery takes origin from a common brachiocephalic trunk. The common carotid artery and carotid bulb are widely patent. There is calcified plaque at the proximal ICA resulting in approximately 10% stenosis. The internal carotid artery is otherwise unremarkable. The right vertebral artery arises from the subclavian artery and is nondominant/diminutive and appears to terminate in the right PICA artery. Left side: The left common carotid artery arises from a common brachiocephalic trunk. The common carotid artery is widely patent. Mild calcified plaque at the carotid bulb results in approximately 10% stenosis. The internal carotid artery is widely patent. The left vertebral artery arises from the left subclavian artery and is dominant, widely patent, and vessel supply to the basilar artery. PAGE 1 Signed Report (CONTINUED) Name: ANNIE CLAROS : 1950 Age/S: 71 / F [address] [address] [place] Unit#: [id number] Loc: [place] [address] Phys: Elina Starks DO Acct: [id number] Dis Date: Status: REG ER PHONE #: [phone] Exam Date: 03/14/20222199 FAX #: Reason: expressive aphasia EXAMS: CPT: [id number] CT ANGIO NECK [address] (Continued) Other findings: There is no cervical adenopathy or mass. The airway is patent and midline. The thyroid gland is unremarkable. The parotid and submandibular glands are unremarkable. Cervical spine degenerative changes are noted. IMPRESSION: 1. Normal CTA head. 2. Mild calcified plaque at the proximal right ICA and at the left carotid bulb, resulting in upto 10% stenosis on each side. Otherwise, unremarkable CTA neck. One or more of the following dose reduction techniques were used: Automated exposure control, adjustment of the mA and/or kV according to patient size, and/or utilization of iterative reconstruction technique. DLP: 3040 mGy-cm CTDI: 132 mGy at 2223 Reported and signedby: Lm Watts M.D. CC: Elina Starks DO Technologist:Socrates Boone, RT(R) CTDI: DLP: Trnscb Date/Time: 03/14/2022 (222) [email or web address] Orig Print D/T: S: 03/14/2022 (6) PAGE 2 Signed Report- CT ANGIO [id number] 22:23:00 [facility] : 1950 Sex: F Name: ANNIE CLAROS [facility] : 1950 Age/S: 71 / F [address] [address] [place] Unit #: [id number] Loc: [place] [address] Phys: Elina Starks DO Acct: [id number] Dis Date: Status: REG ER PHONE #: [phone] Exam Date: 03/14/2022 2200 FAX #: Reason: expressive aphasia EXAMS: CPT: [id number] CT ANGIO HEAD [address] EXAM: CTA head with contrast and CTA neck with contrast Dictation location: H10 INDICATION:Expressive aphasia COMPARISON: CT head performed earlier the same day TECHNIQUE: Axial 2.5 mm imagesof the head and neck were obtained during the arterial phase after the injection of 100 mL Isovue-370 IV contrast. Coronal and sagittal MIP reformats were performed. DISCUSSION: CTA HEAD: Anterior circu lation: The upper cervical, petrous, cavernous, and supraclinoid internal carotid arteries are widely patent. M1 arteries and branches are patent. The A1, anterior communicating, and A2 arteries are patent. No vascular malformation or aneurysm is seen. Posterior circulation: The left vertebral arteryappears to be the sole supply to the basilar artery. The right vertebral artery appears diminutive and terminates at the plica. The vertebral arteries and branches, the basilar artery and branches, andP1 and P2 arteries are patent. No vascular malformation or aneurysm is seen. Other findings: Dural venous sinuses and deep veins appear patent. CTA NECK: Right side: The right common carotid artery takes origin from a common brachiocephalic trunk. The common carotid artery and carotid bulb are widely patent. There is calcified plaque at the proximal ICA resulting in approximately 10% stenosis. The internal carotid artery is otherwise unremarkable. The right vertebral artery arises from the subclavian artery and is nondominant/diminutive and appears to terminate in the right PICA artery. Left side: The left common carotid artery arises from a common brachiocephalic trunk. The common carotid artery is widely patent. Mild calcified plaque at the carotid bulb results in approximately 10% stenosis. The internal carotid artery is widely patent. The left vertebral artery arises from the left subclavianartery and is dominant, widely patent, and vessel supply to the basilar artery. PAGE 1 Signed Report(CONTINUED) Name: ANNIE CLAROS : 1950 Age/S: 71 / F [address] [address] [place] Unit #:[id number] Loc: [place] [address] Phys: Elina Starks DO Acct: [id number] Dis Date: Status: REG ER PHONE #: [phone] Exam Date: 03/14/20222199 FAX #: Reason: expressive aphasia EXAMS: CPT: [id number] CT ANGIO HEAD [address]646 (Continued) Other findings: There is no cervical adenopathy or mass. The airway is patent and midline. The thyroid gland is unremarkable. The parotid and submandibular gl ands are unremarkable. Cervical spine degenerative changes are noted. IMPRESSION: 1. Normal CTA head. 2. Mild calcified plaque at the proximal right ICA and at the left carotid bulb, resulting in up to10% stenosis on each side. Otherwise, unremarkable CTA neck. One or more of the following dose reduction techniques were used: Automated exposure control, adjustment of the mA and/or kV according to patient size, and/or utilization of iterative reconstruction technique. DLP: 3040 mGy-cm CTDI: 132 mGy at 2223 Reported and signed by: Lm Watts M.D. CC: Elina Starks DO Technologist:Socrates Boone, RT(R) CTDI: DLP: Trnscb Date/Time: 03/14/2022 (2222) [email or web address] Orig Print D/T: S: 03/14/2022 (2226) PAGE 2 Signed ReportBASIC METABOLIC [id number] 22:15:00 Test Item Value Reference Range Interpretation Comments SODIUM (test code = NA) 130 mmol/L 134-147 L POTASSIUM (test code = K) 4.5 mmol/L 3.4-5.0 N CHLORIDE (test code = CL) 100 mmol/L 100-108 N CARBON DIOXIDE (test code = CO2) 22 mmol/L 21-32 N ANION GAP (test code = GAP) 8.0 GAP calc 4.0-15.0 N GLUCOSE (test code = GLU) 231 MG/DL 70-110 H BLOOD UREA NITROGEN (test code = 21 MG/DL 7-18 H BUN) GLOMERULAR FILTRATION RATE (test 32 estGFR >60 L code = GFR) CREATININE (test code = CREAT) 1.7 MG/DL 0.6-1.0 H CALCIUM (test code = CA) 9.1 MG/DL 8.5-10.1 N Completed by Nursing: NOTROP-I HIGH [id number] 22:15:00 Test Item Value Reference Range Interpretation Comments TROP-I HIGH 3.4 ng/L 0-34 N CAUTION: Units of the SENSITIVITY (test current te st methodology code = TROPIHS) (ng/L) diffe rfrom the prior test meth odology (ng/mL) by a fa ctor of 1000. 99t h Percentile Uppe r Reference Limit (URL):Fem ales: 34 ng/LMales: 54 n g/L In order to distin guish acute elevations of h igh sensitivitytrop onin from other clinical conditions, the FourthUnive rsal Definition of M yocardial Infarction stressesclinica l assessment and the demonstration o f a rise and/orfall in s erial troponin result s above the URL. Results fr om different metho dologies should not be c omparedto one another as quantitative re sults and URLs may varyby method. Completed by Nursing: NOPROTHROMBIN [id number] 22:11:00 Test Item Value Reference Range Interpretation Comments PT PATIENT (test 10.0 SECONDS 9.3-12.9 N code = PTP) INTERNATIONAL NORMAL 0.88 INR Unit 0.8-1.2 N TARGE T INR BY RATIO (test code = INDICATIO N Indication INR) INR1. Prophylax is of venous thrombos is 2.0 - 3.0 (orthoped ic surgery), Proph ylaxis of venous throm bosis (other than hig h-risk surgery), Treat ment of Deep Vein Thrombosis/Pulm onary Embolism, Preve ntion of systemic emb olism - Tissue heart va lves, Acute Myocardia l Infarction (to prevent systemic emboli sm), Valvular heart disease, Acute Myocardial Infa rction (to prevent sys temic embolism), Valv ular heart disease, Atrial Fibrillation, Bileaflet mecha nical valve in aortic position.2. Mec hanical prosthetic valv es (high risk), 2. 5 - 3.5 Presence of Lup us Anticoagulant o r Antiphospholipi d Antibodies, Pre vention of systemic emb olism - Acute Myocardia l Infarction (to prevent recurrent infar ct). THROMBOPLASTIN TIME [id number] 22:11:00 Test Item Value Reference Range Interpretation Comments THROMBOPLASTIN TIME PARTIAL 31.1 SECONDS 26-35 N (test code = PTT) CBC W/O [id number] 22:02:00 Test Item Value Reference Range Interpretation Comments WHITE BLOOD CELL (test code = WBC) 9.7 K/mm3 3.5-11.0 N RED BLOOD CELL (test code = RBC) 4.07 M/mm3 4.70-6.10 L HEMOGLOBIN (test code = HGB) 12.5 G/DL 10.4-14.9 N HEMATOCRIT (test code = HCT) 36.4 % 31.5-44.1 N MEAN CELL VOLUME (test code = MCV) 89.4 Fl 84.5-98.6 N MEAN CELL HGB (test code = MCH) 30.7 pg 27.0-34.2 N MEAN CELL HGB CONCETRATION (test 34.3 G/DL 31.5-34.0 H code = MCHC) RED CELL DISTRIBUTION WIDTH (test 12.8 SD 11.5-14.5 N code = RDW) PLATELET COUNT (test code = PLT) 233 K/mm3 150-450 N MEAN PLATELET VOLUME (test code = 11.00 fL 7.0-10.5 H MPV) - CT HEAD/BRAIN W/O [id number] 22:00:00 [facility] 1950 Sex: F Name: ANNIE CLAROS [facility] : 1950 Age/S: 71 / F [address] [address] [place] Unit #: [id number] Loc: [place] [address] Phys: StarksElina Tanya DO Acct: [id number] Dis Date: Status: PRE ER PHONE #: [phone] Exam Date: 03/14/20222149 FAX #: Reason: expressive aphasia EXAMS: CPT: [id number] CT HEAD/BRAIN W/O CONT 54718 Location: CT head, 03/14/22 COMPARISON EXAMS:None of the brain TECHNIQUE: CT examination of the brain was performed without contrast on a helical scanner. Scanning conducted fromskull base to vertex in the axial plane acquiring contiguous 5mm slice thickness . The examination was performed on a updated helical CT scanner utilizing low-dose radiation technique. Automatic exposure control timing was utilized to minimize radiation dose. CLINICAL HISTORY expressive aphasia. FINDINGS: No positive mass-effect, midline shift, extra-axial fluid collections or intracranial hemorrhages seen. In particular, no subarachnoid hemorrhage is identified. No intra or extra-axial masses. Bone windows unremarkable. No significant sinus disease is noted. No acute territorial infarction is seen. There is a small wedge-shaped area of hypodensity in the left parietal region of concern for a small age-indeterminate vascular insult having a somewhat well-defined margins and more likely at least subacute in age. MRI imaging of the helpful for further assessment finding somewhat in a watershed distribution between the left [employer] and MCA territory. No other findings of concern for a vascular insult.IMPRESSION: No territorial infarction or space-occupying process. No intracranial hemorrhage Difficult to age characterize small vascular insult in the left parietal lobe posteriorly medially somewhatin a watershed distribution possibly subacute in age. I have discussed the findings of this code stroke case with Dr. Starks on 03/14/22 at 9:57 PM PAGE 1 Signed Report (CONTINUED) Name: ANNIE CLAROS : 1950 Age/S: 71 / F [address] [address] [place] Unit #: [id number] Loc: [place] [address] Phys: Elina Starks DO Acct: [id number] Dis Date: Status: PRE ER PHONE #: [phone] Exam Date: 03/14/20222149 FAX #: Reason: expressive aphasia EXAMS: CPT: [id number] CT HEAD/BRAIN W/O CONT 90806 (Continued) FOR INTERNAL CODING PURPOSES ONLY RESULT CODE : CVRMD at 2200 Reported and signed by: Adri Hicks M.D. CC: Elina Starks DO Technologist:Socrates Boone RT(R); [place] CTDI: DLP: Trnscb Date/Time: 03/14/2022 (2199) [email or web address] Orig Print D/T: S: 03/14/2022 (2202) PAGE 2 Signed ReportPOCT GLUCOSE (AUTOMATED)2022-03-01 13:03:23 Test Item Value Reference Range Interpretation Comments POCT GLU (test code = 9076901979) 321 mg/dL 70-110 H Lab Interpretation (test code = Abnormal 54183-4) [facility] GLUCOSE (AUTOMATED)2022-03-01 13:03:23 Test Item Value Reference Range Interpretation Comments POCT GLU (test code = 6523635476) 321 mg/dL 70-110 H Lab Interpretation (test code = Abnormal 64571-4) [facility] [id number] 12:47:00 Test Item Value Reference Range Interpretation Comments POCT Glu (age>30days) (test code = 321 mg/dL 70-110 A 3342) Lab Interpretation (test code = Abnormal 12821-8) [facility] [id number] 12:47:00 Test Item Value Reference Range Interpretation Comments POCT Glu (age>30days) (test code = 321 mg/dL 70-110 A 3342) Lab Interpretation (test code = Abnormal 62352-4) [facility] GLUCOSE (AUTOMATED)2022-02-15 13:02:47 Test Item Value Reference Range Interpretation Comments POCT GLU (test code = 1084472553) 152 mg/dL 70-110 H Lab Interpretation (test code = Abnormal 21420-6) [facility] GLUCOSE (AUTOMATED)2022-02-15 13:02:47 Test Item Value Reference Range Interpretation Comments POCT GLU (test code = 6046738164) 152 mg/dL 70-110 H Lab Interpretation (test code = Abnormal 15343-9) [facility] [id number] 12:58:00 Test Item Value Reference Range Interpretation Comments POCT Glu (age>30days) (test code = 152 mg/dL 70-110 A 3342) Lab Interpretation (test code = Abnormal 94499-9) [facility] [id number] 12:58:00 Test Item Value Reference Range Interpretation Comments POCT Glu (age>30days) (test code = 152 mg/dL 70-110 A 3342) Lab Interpretation (test code = Abnormal 45075-0) [facility],[id number] 00:00:00 Test Item Value Reference Range Interpretation Comments Urine Culture,Comprehensive Final report (test code = 630-4)
--- NOTE | 2022-07-25 22:14 | RAD REPORT ---
EXAM DESCRIPTION: CT - Ct Stroke Brain Wo Cont - 07/25/2022 10:06 pm CLINICAL HISTORY: blurred vision, left arm tingling Headache, drowsiness, CVA symptomology COMPARISON: No comparisons TECHNIQUE: All CT scans are performed using dose optimization technique as appropriate and may inclu de automated exposure control or mA/KV adjustment according to patient size. FINDINGS: No intracranial hemorrhage, hydrocephalus or extra-axial fluid collection.Small area of gl iosis is seen left occipital lobe.No areas of brain edema or evidence of midline shift. The paranasal sinuses and mastoids are clear. The calvarium is intact. IMPRESSION: No acute intracranial abnormality. If there is continued clinical concern for CVA, MR imaging of the brain would be recommended. The findings were discussed with JUSTINA Banks in the ER on 07/25/2022 at 9:57 p.m. by telephone.
--- NOTE | 2022-07-25 22:36 | RAD REPORT ---
EXAM DESCRIPTION: RAD - Chest Single View - 07/25/2022 10:31 pm CLINICAL HISTORY: left arm tingling Chest pain. COMPARISON: Chest Pa And Lat (2 Views) dated 07/26/2021; Chest Single View dated 06/16/2020; Chest Si ngle View dated 10/13/2018; CHEST SINGLE VIEW dated 08/29/2012 FINDINGS: Portable technique limits examination quality. The lungs are grossly clear. The heart is normal in size. No displaced fractures. IMPRESSION: No acute intrathoracic process suspected.
[2022-07-25] MEDS ORDERED: NA CHLORIDE 0.9% 50 ML IV ONE (22:41)
[2022-07-25] MEDS ORDERED: CLOPIDOGREL 75 MG TABLET ONE (22:41)
[2022-07-25] MEDS ORDERED: ASPIRIN 81 MG CHEWABLE TABLET ONE (22:41)
[2022-07-25] MEDS ORDERED: FOLIC ACID 5 MG/ML VIAL ONE (22:43)
[2022-07-25 22:59] LABS: Absolute Lymphocytes (CBC) 2.2 K/uL (0.7-4.9); Hematocrit 35.8 % (36.0-45.0); Lymphocytes % 26.6 % (15.3-44.8); MCV 91.2 fL (80-100); MPV 8.8 fL (7.6-11.3); RBC Red Blood Cell Count 3.93 M/uL (3.86-4.86)
[2022-07-25 23:04] LABS: Protime INR 1.06
[2022-07-25 23:13] LABS: Potassium 4.5 mmol/L (3.5-5.1); Troponin High Sensitivity 7.1 pg/mL (<58.9)
--- NOTE | 2022-07-25 23:58 | ER ---
Nurse's Notes [facility] Name: Annie Zuñiga Age: 72 yrs Sex: Female : 1950 Arrival Date: 07/25/2022 Time: 21:32 Bed 17 Private MD: Diagnosis: Transient cerebral ischemic attack, unspecified;Paresthesia of skin Presentation: 07/25 22:00 Chief complaint: Patient states: "Around 8:30 I started having blurred vision, a really vc1 bad headache, and my left arm went numb. I had 2 strokes about a month ago where they had to give me the medicine to bust up the clot. I also had a loop recorder installed Sunday. I took my blood pressure it was 185/101. I am just afraid I am having another stroke.". Coronavirus screen: Vaccine status: Patient reports receiving the 2nd dose of the covid vaccine. unknoown field spec At this time, the client does not indicate any symptoms associated with coronavirus-19. Ebola Screen: No symptoms or risks identified at this time. Initial Sepsis Screen: Does the patient meet any 2 criteria? No. Patient's initial sepsis screen is negative. Does the patient have a suspected source of infection? No. Patient's initial sepsis screen is negative. Risk Assessment: Do you want to hurt yourself or someone else? Patient reports no desire to harm self or others. Onset of symptoms was July 25, 2022 at 20:30. 22:00 Method Of Arrival: Ambulatory vc1 22:00 Acuity: BONI 2 vc1 Triage Assessment: 07/26 00:00 Headache History: The patient has had previous headaches and this one is similar to aa9 previous episodes. General: Appears in no apparent distress. Behavior is calm, cooperative, appropriate for age. Pain: Denies pain. Neuro: Level of Consciousness is awake, alert, obeys commands, Oriented to person, place, time, situation. 00:00 Neuro: Front Desk Associate are equal bilaterally Moves all extremities. Gait is steady, Speech is aa9 normal, Facial symmetry appears normal, Pupils are PERRLA, Intact. Respiratory: Airway is patent Respiratory effort is even, unlabored. GI: No signs and/or symptoms were reported involving the gastrointestinal system. : No signs and/or symptoms were reported regarding the genitourinary system. Derm: Skin is intact, with poor turgor. 03:12 Pain: Also complains of no other associated symptoms. aa9 03:12 Pain: Pain. aa9 03:13 Pain: Pain began. aa9 Historical: - Allergies: 07/25 22:05 PENICILLINS; vc1 - PMHx: 22:05 Diabetes - NIDDM; ULCER; Thyroid problem; kidney failure; Hypertension; High vc1 Cholesterol; Gout; - PSHx: 22:05 hysterectomy; loop recorder; vc1 - Immunization history:: Client reports receiving the 2nd dose of the Covid vaccine. - Social history:: Smoking status: Patient denies any tobacco usage or history of. - Family history:: not pertinent. - Hospitalizations: : Patient was recently seen at. Screenin:05 Abuse screen: Denies threats or abuse. Nutritional screening: No deficits noted. vc1 Tuberculosis screening: No symptoms or risk factors identified. Fall Risk 22:47 The patient has not been NPO before screening. The patient is alert, able to follow bb commands. The patient does not exhibit slurred or garbled speech The patient is not exhibiting difficulty speaking. The patient does not exhibit difficulty understanding words. The patient is able to swallow own secretions with no drooling or need for suction. Patient tolerated one teaspoon of water. No drooling, immediate coughing, gurgling, or clearing of the throat was noted. The patient tolerated 90mL of water. No drooling, immediate coughing, gurgling, or clearing of the throat was noted. The patient passed the bedside swallow screening. Oral medications may be given as ordered. Contact Physician for further diet orders. Provider notified of bedside swallow screening results: Rodrigeuz Castellon MD. 07/26 03:13 [facility] ED Fall Risk Assessment (Adult) History of falling in the last 3 months, aa9 including since admission No falls in past 3 months (0 pts). Humpty Dumpty Scale Fall Assessment Tool (age< 18yrs) Age 13 years and above (1 pt) Gender Female (1 pt) Diagnosis. Assessment: 07/25 23:50 Pain: Denies pain. Neuro: Level of Consciousness is awake, alert, obeys commands, aa9 Oriented to person, place, time, situation. 23:50 Neuro: Front Desk Associate are equal bilaterally Moves all extremities. Gait is steady, Speech is aa9 normal, Facial symmetry appears normal, Pupils are PERRLA, Intact. Cardiovascular: Patient's skin is warm and dry. Respiratory: Airway is patent Respiratory effort is even, unlabored. GI: No signs and/or symptoms were reported involving the gastrointestinal system. : No signs and/or symptoms were reported regarding the genitourinary system. EENT: No signs and/or symptoms were reported regarding the EENT system. Derm: Skin is intact, is thin. Musculoskeletal: No signs and/or symptoms reported regarding the musculoskeletal system. 07/26 00:23 General: FSBS 71, notified MD Ravinder, approved pt to have a meal. em6 Vital Signs: 07/25 22:00 BP 178 / 97; Pulse 71; Resp 18; Pulse Ox 100% ; Weight 81.65 kg; Height 5 ft. 3 in. vc1 (160.02 cm); Pain 7/10; 22:00 BP 190 / 79; Pulse 72; Resp 14 S; Pulse Ox 100% on R/A; aa9 22:15 BP 170 / 107; Pulse 67; Resp 15 S; Pulse Ox 100% on R/A; aa9 22:30 BP 180 / 82; Pulse 66; Resp 16 S; Pulse Ox 100% on R/A; aa9 22:00 Body Mass Index 31.89 (81.65 kg, 160.02 cm) vc1 ED Course: 21:32 Patient arrived in ED. bp1 21:45 Rodriguez Castellon MD is Attending Physician. rn 22:05 Triage completed. vc1 22:05 Arm band placed on right wrist. vc1 22:06 CT Stroke Brain w/o Contrast In Process Unspecified. EDMS 22:30 Initial lab(s) drawn, by mn, sent to lab. Inserted saline lock: 20 gauge in right bb antecubital area, using aseptic technique. Blood collected. 22:33 Stroke CXR 1 View In Process Unspecified. EDMS 23:28 Orquidea Blanton, RN is Primary Nurse. aa9 23:51 CT Head Angio In Process Unspecified. EDMS 23:[address] In Process Unspecified. EDMS 23:57 Loren Varela MD is Hospitalizing Provider. rn 07/26 00:22 Client placed on continuous cardiac and pulse oximetry monitoring. NIBP monitoring aa9 applied. Door closed. Lights dimmed. Warm blanket given. Diet: Patient given a regular meal tray. Patient given water. Tolerated well. 03:12 Patient has correct armband on for positive identification. Placed in gown. Bed in low aa9 position. Call light in reach. Side rails up X2. Adult w/ patient. 03:12 No provider procedures requiring assistance completed. Patient admitted, IV remains in aa9 place. 05:47 Notified ED physician of a critical lab result(s). mag of 1.3 Dr Castellon notified. bb 07:05 Primary Nurse role handed off by Orquidea Blanton, IRINEO bp 07:05 Lm Rdz, RN is Primary Nurse. bp Administered Medications: 07/25 22:48 Drug: Aspirin 81 mg Route: PO; bb 07/26 03:13 Follow up: Response: No adverse reaction aa9 07/25 22:48 Drug: PlaVIX (clopidogrel) 75 mg Route: PO; bb 07/26 03:13 Follow up: Response: No adverse reaction aa9 07/25 22:48 Drug: foLIC Acid 1 mg Route: IVPB; Site: right antecubital; bb 07/26 03:13 Follow up: Response: No adverse reaction aa9 03:14 Follow up: Response: No adverse reaction aa9 Medication: 03:12 VIS not applicable for this client. aa9 Outcome: 07/25 23:58 Decision to Hospitalize by Provider. rn 07/26 03:12 Admitted to ER Hold. Please see [facility] for further documentation. aa9 Condition: stable Instructed on the need for admit. 18:52 Patient left the ED. bp Signatures: Dispatcher [employer] EDMS Natalee Germain RN RN bb Rodriguez Castellon MD MD rn Peltier, Brian, RN RN bp Alexandra Marcos Vanessa RN RN vc1 Orqudiea Blanton, IRINEO RN aa9 Afsaneh Diaz RN RN em6 Corrections: (The following items were deleted from the chart) 14:23 00:23 General: FSBS 71, notified MD Ravinder, approved pt to have a meal. aa9 em6
--- NOTE | 2022-07-25 23:59 | EDPHYS ---
Physician Documentation [facility] Name: Annie Zuñiga Age: 72 yrs Sex: Female : 1950 Arrival Date: 07/25/2022 Time: 21:32 Bed 17 Private MD: ED Physician Rodriguez Castellon HPI: 07/25 22:25 This 72 yrs old Female presents to ER via Ambulatory with complaints of Blurred Vision, rn Numbness Of Arm, Headache. 22:26 The patient presents to the emergency department with paresthesias of the left upper rn extremity. Onset: The symptoms/episode began/occurred 1 hour(s) ago. Context: occurred at home, occurred while the patient was at rest. Associated signs and symptoms: Pertinent positives: headache, paresthesias, blurred vision, Pertinent negatives: altered mental status, chills, fever, neck stiffness, paresthesias, seizure, syncope. Severity of symptoms: At their worst the symptoms were mild in the emergency department the symptoms have improved. Current symptoms: headache. The patient has experienced similar episodes in the past. Pt reports had 2 confirmed strokes last month, just had loop recorder placed, on aspirin and plavix, got thrombolytic last month for 1 of her strokes. Presents with 1 hour of blurred vision and left arm tingling, both have now resolved, only has residual headache. NO chest pain. No trauma. No neck pain.. Historical: - Allergies: 22:05 PENICILLINS; vc1 - PMHx: 22:05 Diabetes - NIDDM; ULCER; Thyroid problem; kidney failure; Hypertension; High vc1 Cholesterol; Gout; - PSHx: 22:05 hysterectomy; loop recorder; vc1 - Immunization history:: Client reports receiving the 2nd dose of the Covid vaccine. - Social history:: Smoking status: Patient denies any tobacco usage or history of. - Family history:: not pertinent. - Hospitalizations: : Patient was recently seen at. ROS: 22:26 Constitutional: Negative for fever, chills, and weight loss, Eyes: Negative for injury, rn pain, redness, and discharge, Neck: Negative for injury, pain, and swelling, Cardiovascular: Negative for chest pain, palpitations, and edema, Respiratory: Negative for shortness of breath, cough, wheezing, and pleuritic chest pain, Abdomen/GI: Negative for abdominal pain, nausea, vomiting, diarrhea, and constipation, Back: Negative for injury and pain, MS/Extremity: Negative for injury and deformity, Skin: Negative for injury, rash, and discoloration, Neuro: + blurred vision and tingling to left arm, + headache Exam: 22:26 Constitutional: This is a well developed, well nourished patient who is awake, alert, rn and in no acute distress. Ambulatory from wheelchair to bed without assistance. Head/Face: Normocephalic, atraumatic. Eyes: Pupils equal round and reactive to light, extra-ocular motions intact. Periorbital areas with no swelling, redness, or edema. Neck: Trachea midline, no thyromegaly or masses palpated, and no cervical lymphadenopathy. Supple, full range of motion without nuchal rigidity, or vertebral point tenderness. No Meningismus. Cardiovascular: Regular rate and rhythm. No pulse deficits. Respiratory: No increased work of breathing, no retractions or nasal flaring. Abdomen/GI: Soft, non-tender Skin: Warm, dry with normal turgor. Normal color with no rashes, no lesions, and no evidence of cellulitis. MS/ Extremity: Pulses equal, no cyanosis. Neurovascular intact. Full, normal range of motion. Equal circumference. Neuro: Awake and alert, GCS 15, oriented to person, place, time, and situation. Cranial nerves II-XII grossly intact. Motor strength 5/5 in all extremities. Sensory grossly intact. Cerebellar exam normal. Normal gait. 23:05 ECG was reviewed by the Attending Physician. rn Vital Signs: 22:00 BP 178 / 97; Pulse 71; Resp 18; Pulse Ox 100% ; Weight 81.65 kg; Height 5 ft. 3 in. vc1 (160.02 cm); Pain 7/10; 22:00 BP 190 / 79; Pulse 72; Resp 14 S; Pulse Ox 100% on R/A; aa9 22:15 BP 170 / 107; Pulse 67; Resp 15 S; Pulse Ox 100% on R/A; aa9 22:30 BP 180 / 82; Pulse 66; Resp 16 S; Pulse Ox 100% on R/A; aa9 22:00 Body Mass Index 31.89 (81.65 kg, 160.02 cm) vc1 MDM: 21:45 Patient medically screened. rn 22:07 ED course: Pt not a candidate for thrombolysis given 2 confirmed CVA last month as well rn as given TPA last month. Symptoms have also resolved. . 23:56 Data reviewed: vital signs, nurses notes, lab test result(s), EKG, radiologic studies, rn CT scan, and as a result, I will admit patient. Counseling: I had a detailed discussion with the patient and/or guardian regarding: the historical points, exam findings, and any diagnostic results supporting the discharge/admit diagnosis, lab results, radiology results, the need for further work-up and treatment in the hospital. Response to treatment: the patient's symptoms have markedly improved after treatment, and as a result, I will admit patient. Admission orders: after a detailed discussion of the patient's condition and case, the admit orders are written by me. 07/25 22:03 Order name: Basic Metabolic Panel; Complete Time: 23:27 07/25 22:03 Order name: CBC with Diff; Complete Time: 23:05 07/25 22:03 Order name: High Sensitivity Troponin; Complete Time: 23:27 07/25 22:03 Order name: Protime (+inr); Complete Time: 23:05 07/25 22:03 Order name: Ptt, Activated; Complete Time: 23:05 07/26 00:24 Order name: Glucose, Ancillary Testing; Complete Time: 00:27 EDRI 07/26 00:27 Order name: SARS-COV-2 Antigen Rapid; Complete Time: 02:19 sb4 07/26 01:24 Order name: CREATININE WHOLE BLOOD; Complete Time: 02:19 EDRI 07/26 05:04 Order name: CBC with Automated Diff; Complete Time: 18:11 EDRI 07/26 05:24 Order name: Hemoglobin A1c; Complete Time: 18:11 EDRI 07/26 05:47 Order name: Basic Metabolic Panel; Complete Time: 18:11 EDRI 07/26 05:47 Order name: Lipid Profile; Complete Time: 18:11 EDRI 07/26 05:47 Order name: Magnesium; Complete Time: 18:11 EDRI 07/26 05:47 Order name: Thyroid Stimulating Hormone; Complete Time: 18:11 [facility] 07/25 22:03 Order name: CT Stroke Brain w/o Contrast; Complete Time: 22:54 07/25 22:03 Order name: Stroke CXR 1 View; Complete Time: 22:54 rn 07/25 22:03 Order name: EKG; Complete Time: 22:04 rn 07/25 22:03 Order name: Accucheck; Complete Time: 00:13 rn 07/25 22:03 Order name: Cardiac monitoring; Complete Time: 22:37 rn 07/25 22:03 Order name: EKG - Nurse/Tech; Complete Time: 23:00 rn 07/25 22:03 Order name: CT Head Angio; Complete Time: 18:11 rn 07/25 22:03 Order name: Neck Angio CT; Complete Time: 18:11 rn 07/26 06:03 Order name: T4 Free; Complete Time: 18:11 EDMS 07/26 08:07 Order name: Glucose, Ancillary Testing; Complete Time: 18:11 EDMS 07/26 08:31 Order name: Magnesium; Complete Time: 18:11 EDMS 07/26 12:32 Order name: Glucose, Ancillary Testing; Complete Time: 18:11 EDMS 07/26 16:51 Order name: Glucose, Ancillary Testing; Complete Time: 18:11 EDMS 07/25 22:03 Order name: IV Saline Lock; Complete Time: 22:37 rn 07/25 22:03 Order name: Labs collected and sent; Complete Time: 22:37 rn 13 22:03 Order name: NPO; Complete Time: 22:37 rn 07/25 22:03 Order name: O2 Per Protocol; Complete Time: 22:37 rn 07/25 22:03 Order name: O2 Sat Monitoring; Complete Time: 22:37 rn 07/25 22:03 Order name: Stroke Swallow Screen; Complete Time: 22:37 rn EC:05 Rate is 70 beats/min. Rhythm is regular. QRS Stanton is Normal. CO interval is normal. QRS rn interval is normal. QT interval is normal. No Q waves. T waves are Normal. No ST changes noted. Clinical impression: Normal ECG. Interpreted by me. Reviewed by me. Administered Medications: 22:48 Drug: Aspirin 81 mg Route: PO; 07/26 03:13 Follow up: Response: No adverse reaction aa07/25 22:48 Drug: PlaVIX (clopidogrel) 75 mg Route: PO; 07/26 03:13 Follow up: Response: No adverse reaction aa9 12/13 22:48 Drug: foLIC Acid 1 mg Route: IVPB; Site: right antecubital; bb 07/26 03:13 Follow up: Response: No adverse reaction aa9 03:14 Follow up: Response: No adverse reaction aa9 Disposition Summary: 07/25/22 23:58 Hospitalization Ordered Hospitalization Status: Observation rn Provider: Loren Varela rn Condition: Stable rn Problem: new rn Symptoms: have improved rn Bed/Room Type: Standard rn Location: [facility] ER HOLD(07/26/22 00:56) cg Room Assignment: ERHOLD-(07/26/22 00:56) cg Diagnosis - Transient cerebral ischemic attack, unspecified rn - Paresthesia of skin rn Forms: - Medication Reconciliation Form rn - SBAR form rn Signatures: Dispatcher [employer] Natalee Patterson RN RN bb Rodriguez Castellon MD MD rn Garcia, Cindy, RN RN cg Calcote, Vanessa, RN RN Sameera George, LIA [email or web address] Orquidea Blanton RN aa9 Corrections: (The following items were deleted from the chart) 00:56 07/25 23:58 Telemetry/MedSurg (observation) rn cg 07/26 00:56 07/25 23:58 rn cg
[2022-07-26 00:50] VITALS: TEMP 98
--- NOTE | 2022-07-26 00:50 | P.HP ---
Certification for Inpatient Patient admitted to: Observation With expected LOS: <2 Midnights Patient will require the following post-hospital care: None Practitioner: I am a practitioner with admitting privileges, knowledge of patient current condition, hospital course, and medical plan of care. 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 Symptoms have now resolved, she is only complaining of a headache. NIHS 0. Patient reports that 2 months ago, she had 2 CVAs that were identified on CT at [facility] and she received TPA. She reports right sided symptoms at the time but has no residual deficits and has been taking aspirin and plavix since. She also had 2 cardiac stents placed about 2 weeks ago and a loop recorder placed [address] and head/neck CT angio are negative for acute findings. She was given plavix, aspirin, and folic acid here. Patient will be admitted for observation with MRI in the morning. Allergies Penicillins Allergy (Intermediate, Verified 08/28/12 23:49) Hives/Rash Home medications list reviewed: Yes Home Medications: Glimepiride 1 mg PO DAILY 10/13/18 Lovastatin 20 mg PO DAILY 10/13/18 Metoprolol Tartrate 25 mg PO DAILY 10/13/18 allopurinoL [Allopurinol] 100 mg PO DAILY 10/13/18 lisinopriL [Prinivil*] 5 mg PO DAILY 10/13/18 Aspirin [Aspirin EC 81 MG] 81 mg PO DAILY 06/16/20 Famotidine [Acid Controller] 20 mg PO DAILY 06/16/20 Insulin Glargine,Hum.rec.anlog [Lantus Solostar] 40 units SQ DAILY 06/16/20 Levothyroxine Sodium [Euthyrox] 50 mcg PO 0630 06/16/20 Sitagliptin Phosphate [Januvia*] 100 mg PO DAILY 06/16/20 - Past Medical/Surgical History Diabetic: Yes -: Insulin Dependent Type 2 DM -: HTN -: CKD -: Gout -: hyperlipidemia -: hypothyroidism -: CVAs -: hysterectomy -: tonsillectomy -: Cardiac cath with 2 sents Psychosocial/ Personal History: Patient lives at home with her daughter. - Family History Father -: Heart disease, Stroke Sister -: Heart disease Mother -: Heart disease, Stroke - Social History Smoking Status: Never smoker Alcohol use: No CD- Drugs: No Caffeine use: No Place of Residence: Home Review of Systems General: Other (Headache) Physical Examination - Vital Signs Temperature: 98 F Blood Pressure: 180/82 Pulse: 66 Respirations: 16 Pulse Ox (%): 100 (room air) - Physical Exam General: Alert, In no apparent distress HEENT: Atraumatic, PERRLA, EOMI, Sclerae nonicteric Neck: Supple, 2+ carotid pulse no bruit Respiratory: Clear to auscultation bilaterally, Normal air movement Cardiovascular: No edema, Regular rate/rhythm Gastrointestinal: Normal bowel sounds, No tenderness Musculoskeletal: No tenderness Integumentary: No rashes Neurological: Normal speech, Normal strength at 5/5 x4 extr, Sensation intact, Normal affect - Studies Laboratory Data (last 24 hrs) 07/25/22 22:30: PT 11.7, INR 1.06, APTT 30.3 07/25/22 22:30: WBC 8.10, Hgb 12.2, Hct 35.8 L, Plt Count 234 07/25/22 22:30: Sodium 131 L, Potassium 4.5, BUN 24 H, Creatinine 1.44 H, Glucose 95 Assessment and Plan - Problems (Diagnosis) (1) TIA (transient ischemic attack) Current Visit: Yes Status: Acute (2) Dyslipidemia Current Visit: Yes Status: Chronic (3) Diabetes Current Visit: Yes Status: Chronic Qualifiers: Diabetes mellitus type: type 2 Diabetes mellitus medical terminologist insulin use: with medical terminologist use Diabetes mellitus complication status: with kidney complications Diabetes mellitus complication detail: with chronic kidney disease Chronic kidney disease stage: stage 3 (moderate) Chronic kidney disease stage 3 subtype: stage 3b (GFR 30-44) Qualified Code(s): E11.22 - Type 2 diabetes mellitus with diabetic chronic kidney disease; N18.32 - Chronic kidney disease, stage 3b; 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 transplanted heart: [place] heart Associated angina: without angina Qualified Code(s): I25.10 - Atherosclerotic heart disease of [place] coronary artery without angina pectoris - Plan Patient is admitted for observation, CVA rule out. MRI stroke protocol and echo ordered for the morning. Neurology consult in place. Continue aspirin, plavix, folic acid, and atorvastatin daily. Check lipid panel, TSH, and A1c. [facility] accu checks with mild sliding scale and diabetic diet. Physical therapy and speech therapy consult. Monitor and replete electrolytes per protocol. Reconcile and continue home medications. Lovenox for VTE prophylaxis. Full code. Discharge Plan: Home Plan to discharge in: 24 Hours - Advance Directives Does patient have a Living Will: No Does patient have a Durable POA for Healthcare: No - Code Status/Comfort Care Code Status Assessed: Yes Code Status: Full Code Physician Review: Patient Assessed, Agree with Above Assessment and Plan Critical Care: No Time Spent Managing Pts Care (In Minutes): 50
[2022-07-26 01:31] LABS: SARS-CoV-2 Antigen Rapid Res Negative (Negative)
[2022-07-26] MEDS ORDERED: D50W 25 GM/50 ML SYRINGE IV PRN (02:07)
[2022-07-26] MEDS ORDERED: GLUCAGON 1 MG/VIAL IM PRN (02:07)
[2022-07-26] MEDS ORDERED: HYDRALAZINE HCL 20 MG/ML VIAL IV PRN (02:07)
[2022-07-26] MEDS ORDERED: ACETAMINOPHEN 325 MG TABLET PO PRN (02:07)
[2022-07-26] MEDS ORDERED: ONDANSETRON 4 MG/2 ML VIAL IV PRN (02:07)
[2022-07-26 03:51] VITALS: BMI 31.8
[2022-07-26 05:02] LABS: Hematocrit 34.8 % (36.0-45.0); Lymphocytes % 16.7 % (15.3-44.8); MCV 90.8 fL (80-100); MPV 8.7 fL (7.6-11.3); RBC Red Blood Cell Count 3.83 M/uL (3.86-4.86)
[2022-07-26 05:45] LABS: Potassium 4.9 mmol/L (3.5-5.1)
[2022-07-26 05:46] LABS: Thyroid Stimulating Hormone 4.24 uIU/mL (0.358-3.740)
[2022-07-26 05:47] LABS: Magnesium 1.3 mg/dL (1.6-2.4)
[2022-07-26] MEDS ORDERED: MAGNESIUM SULFATE 1 gm IVPB 1 GM/100 ML BAG IV ONE ×2 (06:11→06:15)
[2022-07-26] MEDS: INSULIN -REGULAR HUMAN 50 UNIT/0.5 ML ML SQ SCH ×3 (07:30→16:30)
[2022-07-26] MEDS ORDERED: CLOPIDOGREL 75 MG TABLET PO SCH (09:00)
[2022-07-26] MEDS ORDERED: ASPIRIN EC 81 MG TAB PO SCH (09:00)
[2022-07-26] MEDS ORDERED: ASPIRIN 81 MG CHEWABLE TABLET ONE (09:59)
[2022-07-26] MEDS ORDERED: CLOPIDOGREL 75 MG TABLET ONE (10:00)
--- NOTE | 2022-07-26 11:17 | RAD REPORT ---
EXAM DESCRIPTION: CT Angiography Neck With Intravenous Contrast CLINICAL HISTORY: The patient is 72 years old and is Female; left arm tingling, blurred vision TECHNIQUE: Axial computed tomographic angiography images of the neck with intravenous contrast. Sa gittal and coronal reformatted images were created and reviewed. This CT exam was performed using o ne or more of the following dose reduction techniques: automated exposure control, adjustment of th e mA and/or kV according to patient size, and/or use of iterative reconstruction technique. MIP rec onstructed images were created and reviewed. COMPARISON: No relevant prior studies available. FINDINGS: VASCULATURE: Right common carotid artery: Unremarkable. No significant stenosis. No dissection or occlusi on. Right internal carotid artery: Unremarkable. Extracranial segment is patent with no significan t stenosis. No dissection or occlusion. Right external carotid artery: Unremarkable. No occlusion. Right vertebral artery: Diminutive right vertebral artery. No significant stenosis. No dissection or occlusion. Left common carotid artery: Unremarkable. No significant stenosis. No dissection or occlusio n. Left internal carotid artery: Unremarkable. Extracranial segment is patent with no significant stenosis. No dissection or occlusion. Left external carotid artery: Unremarkable. No occlusion. Left vertebral artery: Unremarkable. No significant stenosis. No dissection or occlusion. NECK: Bones/joints: No acute fracture. No dislocation. Soft tissues: Unremarkable as visualized. No mass. Submandibular/parotid glands: Enlarged fatty appearing submandibular glands. CAROTID STENOSIS REFERENCE USING NASCET CRITERIA: % ICA stenosis = (1 - narrowest ICA diameter/diameter of distal cervical ICA) x 100. Mild - <50% stenosis. Moderate - 50-69% stenosis. Severe - 70-94% stenosis. Near occlusion - 95-99% stenosis. Occluded - 100% stenosis. * A single impression for all exams can be found at the end of this report EXAM DESCRIPTION: CT Angiography Head With Intravenous Contrast CLINICAL HISTORY: The patient is 72 years old and is Female; left arm tingling, blurred vision TECHNIQUE: Axial computed tomographic angiography images of the head with intravenous contrast. Sa gittal and coronal reformatted images were created and reviewed. This CT exam was performed using o ne or more of the following dose reduction techniques: automated exposure control, adjustment of th e mA and/or kV according to patient size, and/or use of iterative reconstruction technique. MIP rec onstructed images were created and reviewed. COMPARISON: No relevant prior studies available. FINDINGS: Right internal carotid artery: No acute findings. Intracranial segment is patent with no significant stenosis. No aneurysm. Right anterior cerebral artery: Unremarkable. No occlusion or significant stenosis. No aneur ysm. Right middle cerebral artery: Unremarkable. No occlusion or significant stenosis. No aneurys m. Right posterior cerebral artery: Unremarkable. No occlusion or significant stenosis. No aneu rysm. Right vertebral artery: Diminutive right vertebral artery. Left internal carotid artery: No acute findings. Intracranial segment is patent with no signif icant stenosis. No aneurysm. Left anterior cerebral artery: Unremarkable. No occlusion or significant stenosis. No aneury sm. Left middle cerebral artery: Unremarkable. No occlusion or significant stenosis. No aneurysm . Left posterior cerebral artery: Unremarkable. No occlusion or significant stenosis. No aneur ysm. Left vertebral artery: Unremarkable as visualized. Basilar artery: Unremarkable. No occlusion or significant stenosis. No aneurysm. * A single impression for all exams can be found at the end of this report IMPRESSION: CT Angiography Neck With Intravenous Contrast: No significant stenosis. No dissection or occlusion. CT Angiography Head With Intravenous Contrast: No occlusion or significant stenosis. No aneurysm. Electronically signed by: Shaheen Faulkner MD 07/26/2022 12:21 AM [employer] Due to temporary technical issues with the PACS/Fluency reporting system, reports are being signed by the in house radiologists without review as a courtesy to insure prompt reporting. The interpreting radiologist is fully responsible for the content of the report.
[2022-07-26 16:45] VITALS: BP 163/94
--- NOTE | 2022-07-26 17:55 | P.DS ---
Admission Date: 07/26/22 Discharge Date: 07/26/22 Primary Care Provider: [facility]ara Disposition: ROUTINE DISCHARGE Discharge Condition: FAIR Reason for Admission: TIA - Problems (1) TIA (transient ischemic attack) Status: Acute (2) History of CVA (cerebrovascular accident) Status: Acute (3) CAD (coronary artery disease) Status: Chronic Qualifiers: Coronary Disease-Associated Artery/Lesion type: [place] artery [place] vs. transplanted heart: [place] heart Associated angina: without angina Qualified Code(s): I25.10 - Atherosclerotic heart disease of [place] coronary artery without angina pectoris (4) Diabetes Status: Chronic Qualifiers: Diabetes mellitus type: type 2 Diabetes mellitus fdc insulin use: with fdc use Diabetes mellitus complication status: with kidney complications Diabetes mellitus complication detail: with chronic kidney disease Chronic kidney disease stage: stage 3 (moderate) Chronic kidney disease stage 3 subtype: stage 3b (GFR 30-44) Qualified Code(s): E11.22 - Type 2 diabetes mellitus with diabetic chronic kidney disease; N18.32 - Chronic kidney disease, stage 3b; Z79.4 - correction (current) use of insulin (5) Hypertension Status: Chronic Qualifiers: Hypertension type: primary hypertension Qualified Code(s): I10 - Essential (primary) hypertension Brief History of Present Illness: Patient is a 72 year old female with past medical history of hypertension, hyperlipidemia, insulin dependent type 2 diabetes, previous CVAs, hypothyroidism, and CAD who presented to the ED with complaints of left sided arm numbness, severe headache, and blurry vision that began 1 hour [place]. Symptoms resolved in the ED. NIHS 0. Patient reports that 2 months ago, she had 2 CVAs that were identified on CT at [facility] and she received TPA. She reports right sided symptoms at the time but has no residual deficits and has been taking aspirin and plavix since. She also had 2 cardiac stents placed about 2 weeks ago and a loop recorder placed [address] and head/neck CT angio are negative for acute findings. She was given plavix, aspirin, and folic acid here. Patient was placed under observation for further management. Hospital Course: MRI could not be done because of recent cardiac stent. Noted mild left facial droop otherwise patient was asymptomatic. She was seen and evaluated by PT and she ambulated independently. She had no trouble swallowing and no speech problem. Echocardiogram was done and the results is pending. CTA head and neck showed no significant vessel occlusion. Patient has a loop recorder for monitoring to detect arrhythmias given recurrent stroke Case discussed with neurology Dr. Figueroa who recommended anticoagulation with Eliquis. Given patient is on aspirin and Plavix for her cardiac stent, patient is prescribed low-dose Eliquis 2.5 mg twice daily to reduce her risk of bleeding. 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 Patient will also follow-up with Dr. Figueroa as outpatient. Vital Signs/Physical Exam: Temp Pulse Resp BP Pulse Ox 98 F 70 16 163/94 H 97 07/26/22 01:09 07/26/22 16:00 07/26/22 16:00 07/26/22 16:00 07/26/22 16:00 General: Alert, In no apparent distress, Oriented x3 HEENT: Mucous membr. moist/pink Neck: JVD not distended Respiratory: Clear to auscultation bilaterally, Normal air movement Cardiovascular: No edema, Regular rate/rhythm, Normal S1 S2 Gastrointestinal: Soft and benign, Non-distended, No tenderness Musculoskeletal: No swelling Integumentary: No cyanosis Neurological: Other (Mild left facial droop.) Laboratory Data at Discharge: WBC 11.70 K/uL (4.3-10.9) H 07/26/22 04:40 Hgb 11.9 g/dL (12.0-15.0) L 07/26/22 04:40 Hct 34.8 % (36.0-45.0) L 07/26/22 04:40 Plt Count 230 K/uL (152-406) 07/26/22 04:40 PT 11.7 SECONDS (9.5-12.5) 07/25/22 22:30 INR 1.06 07/25/22 22:30 APTT 30.3 SECONDS (24.3-36.9) 07/25/22 22:30 Sodium 130 mmol/L (136-145) L 07/26/22 04:40 Potassium 4.9 mmol/L (3.5-5.1) 07/26/22 04:40 BUN 24 mg/dL (7-18) H 07/26/22 04:40 Creatinine 1.36 mg/dL (0.55-1.02) H 07/26/22 04:40 Glucose 121 mg/dL (74-106) H 07/26/22 04:40 Magnesium 1.3 mg/dL (1.6-2.4) L* 07/26/22 04:40 Magnesium 1.3 mg/dL (1.6-2.4) L* 07/26/22 04:40 Triglycerides 263 mg/dL (<150) H 07/26/22 04:40 Cholesterol 135 mg/dL (<200) 07/26/22 04:40 HDL Cholesterol 28 mg/dL (40-60) L 07/26/22 04:40 Cholesterol/HDL Ratio 4.82 07/26/22 04:40 Home Medications: Glimepiride 1 mg PO DAILY 10/13/18 Lovastatin 20 mg PO DAILY 10/13/18 Metoprolol Tartrate 25 mg PO DAILY 10/13/18 allopurinoL [Allopurinol] 100 mg PO DAILY 10/13/18 lisinopriL [Prinivil*] 5 mg PO DAILY 10/13/18 Aspirin [Aspirin EC 81 MG] 81 mg PO DAILY 06/16/20 Famotidine [Acid Controller] 20 mg PO DAILY 06/16/20 Insulin Glargine,Hum.rec.anlog [Lantus Solostar] 40 units SQ DAILY 06/16/20 Levothyroxine Sodium [Euthyrox] 50 mcg PO 0630 06/16/20 Sitagliptin Phosphate [Januvia*] 100 mg PO DAILY 06/16/20 Apixaban [Eliquis *] 2.5 mg PO BID #60 tab 07/26/22 Clopidogrel Bisulfate [Plavix*] 75 mg PO DAILY #30 tab 07/26/22 New Medications: Apixaban [Eliquis *] 2.5 mg PO BID #60 tab Clopidogrel Bisulfate [Plavix*] 75 mg PO DAILY #30 tab Diet: ADA Activity: Ad maylin Followup: NONE,NONE [Primary Care Provider] - 1-2 Weeks Hector Figueroa MD [ASSOCIATE-ACTIVE - CAN ADMIT] - 1-2 Weeks
[2022-07-26 18:58] VITALS: O2SAT 100
[2022-07-26] MEDS ORDERED: ATORVASTATIN 20 MG TAB PO SCH (21:00)
[2022-07-26] MEDS ORDERED: APIXABAN 2.5 MG TABLET PO SCH (21:00)
--- NOTE | 2022-07-27 08:07 | EKG ---
Test Date: 2022-07-25 Test Time: 22:55:10 Field Aide: ANGELICA MEASUREMENT RESULTS: Intervals: Rate: 70 NM: 174 QRSD: 88 QT: 396 QTc: 427 [place]: P: 64 NM: 174 QRS: 25 T: 35 INTERPRETIVE STATEMENTS: Normal sinus rhythm Normal ECG Compared to ECG 06/17/2020 08:40:49 No significant changes Electronically Signed On 07-27-22 08:02:11 EDI SPECIALIST by Sami Ruiz
--- NOTE | 2022-07-27 08:18 | ECHO ---
HEIGHT: 5 ft 3 in WEIGHT: 180 lb 0.119 oz DATE OF STUDY: 07/26/[address]: Zia Gonsales MD 2-DIMENSIONAL: YES M.MODE: YES DOPPLER: YES COLOR FLOW: YES TDS: PORTABLE: YES DEFINITY: BUBBLE STUDY: DIAGNOSIS: STROKE CARDIAC HISTORY: CATHERIZATION: YES SURGERY: NO PROSTHETIC VALVE: NO PACEMAKER: NO MEASUREMENTS (cm) DIASTOLIC (NORMALS) SYSTOLIC (NORMALS) IVSd 0.8 (0.6-1.2) LA Diam 2.4 (1.9-4.0) LVEF 57% LVIDd 2.9 (3.5-5.7) LVIDs 2.1 (2.0-3.5) %FS 29% LVPWd 1.0 (0.6-1.2) Ao Diam 2.6 (2.0-3.7) 2 DIMENSIONAL ASSESSMENT: RIGHT ATRIUM: NORMAL LEFT ATRIUM: NORMAL RIGHT VENTRICLE: NORMAL LEFT VENTRICLE: NORMAL TRICUSPID VALVE: NORMAL MITRAL VALVE: MITRAL ANNULAR CALCIFICATION PULMONIC VALVE: NORMAL AORTIC VALVE: NORMAL PERICARDIAL EFFUSION: NONE AORTIC ROOT: NORMAL LEFT VENTRICULAR WALL MOTION: NORMAL DOPPLER/COLOR FLOW: NORMAL COMMENTS: 1. LEFT VENTRICULAR SIZE AND FUNCTION 2. NO WALL MOTION ABNORMALITY 3. MITRAL ANNULAR CALCIFICATION 4. NO VEGETATION OR THROMBUS TECHNOLOGIST: NADER SINGH
== END 2022-07-26 18:34 | disposition home or self-care (01) ==
LOC: ER 21:30 → ERHOLD 07-26 00:48
PROVIDERS: ADMIT Internal Medicine; ATTEND Internal Medicine
DX: G45.9 Transient cerebral ischemic attack, unspecified (principal); I25.10 Atherosclerotic heart disease of native coronary artery without angina pectoris; I10 Essential (primary) hypertension; E78.5 Hyperlipidemia, unspecified; E11.22 Type 2 diabetes mellitus with diabetic chronic kidney disease; N18.32 Chronic kidney disease, stage 3b; R29.700 NIHSS score 0; Z79.4 Long term (current) use of insulin; Z86.73 Personal history of transient ischemic attack (TIA), and cerebral infarction without residual deficits; Z20.822 Contact with and (suspected) exposure to COVID-19; Z88.0 Allergy status to penicillin; Z95.5 Presence of coronary angioplasty implant and graft; Z82.49 Family history of ischemic heart disease and other diseases of the circulatory system
CPT/HCPCS: 93005; 93306; 85025 ×2; 80048 ×2; 36415; 83735 ×2; 85610; 80061; 82565; 82947 ×4; 85730; 84443; 83036; 84484; 84439; 70496; 70498; 70450; 71045; 92523; 97161; 87811; Q9967; J3475; G0378

== ENCOUNTER 2024-08-02 17:26 | Emergency (ER) | payer OTHER ==
--- OUTSIDE RECORDS SUMMARY | 2024-08-02 17:33 | XMS REPORT | Continuity of Care Document ---
Author Name Unknown Address [address] [facility] [address] [place] [address] [facility] thconnect Address [address] [facility] [address] [place] [address] Care Team Providers Care Importer Or Exporter Name Role Phone SHASHANK CALIXTO Primary Care Physician Unavailab Shashank Anguiano Attending Clinician Unavailable NICOLAS CAMPA Attending Clinician Unavailab Toño Ch Attending Clinician Unavailable Hollie Cheung Attending Clinician Unavailable Zia Recio Attending Clinician Unavailable Caitlin Wood Attending Clinician Unavailab LOYD Hernandez Attending Clinician Unavailable Loyd Scott NP Attending Clinician [phone] Doctor Unassigned, [place] Attending Clinician U Rosalinda Richard Attending Clinician Unavailable Nicolas Campa MD Attending Clinician [phone] Only, Adc Test Attending Clinician Unavailable Pob, [facility] Main Attending Clinician UnavailSylvia Mcfadden CRNA Attending Clinician SYLVIA ESCOBEDO Attending Clinician UnavailMirian El MD Attending Clinician MIRIAN MONTALVO Attending Clinician Unavailpriscilla schaeffer RADIOLOGY Attending Clinician Unavailable Radiology Attending Clinician Unavailable NICOLAS CAMPA Admitting Clinician Unavailab Shashank Anguiano Admitting Clinician Unavailable Rosalinda Cr Admitting Clinician Unavailable LOYD SCOTT Admitting Clinician Unavailable Physician, No Primary or Family Admitting Clinic giovanny Unavailable Nicolas Campa MD Admitting Clinician SHASHANK CALIXTO Admitting Clinician Unavailable Payers Payer Name Policy Type Policy Number Effective Date Expirati on Date Source [facility] [place] [id number] 2021 00:00:00 [facility] MEDICARE ADVANTAGE [employer] 53 [id number] 2020 00:00:00 [facility] Problems Condition Name Condition Details Condition Category Status Onset Date Resolution Date Last Treatment Date Treating Clinician Comments Source Primary hypothyroi dism Primary hypothyroi dism Disease Active 01-22 00:00: 00 [facility] Arm laceration Arm laceration Disease Active 12-06 00:00: 00 [facility] Obesity (BMI 30-39.9) Obesity (BMI 30-39.9) Disease Active 12-06 00:00: 00 [facility] Hypokalemi a Hypokalemi a Disease Active 05-03 00:00: 00 [facility] Sleep disorder breathing Sleep disorder breathing Disease Active 04-06 00:00: 00 [facility] Atypical chest pain Atypical chest pain Disease Active 04-06 00:00: 00 [facility] Gouty arthritis Gouty arthritis Disease Active 03-30 00:00: 00 [facility] Hyperurice jatin Hyperurice jatin Disease Active 03-30 00:00: 00 [facility] Encounter for long-term (current) use of other high-risk medication s Encounter for long-term (current) use of other high-risk medication s Disease Active 03-30 00:00: 00 [facility] Osteoarthr itis, generalize d Osteoarthr itis, generalize d Disease Active 03-30 00:00: 00 [facility] CKD (chronic kidney disease) stage 3, GFR 30-59 ml/min CKD (chronic kidney disease) stage 3, GFR 30-59 ml/min Disease Active 03-30 00:00: 00 [facility] Hypernatre jatin Hypernatre jatin Disease Active 03-02 00:00: 00 [facility] Chronic kidney disease (CKD) stage G3b/A3, moderately decreased glomerular filtration rate (GFR) between 30-44 mL/min/1.7 3 square meter and albuminuri a creatinine ratio greater than 300 mg/g Chronic kidney disease (CKD) stage G3b/A3, moderately decreased glomerular filtration rate (GFR) between 30-44 mL/min/1.7 3 square meter and albuminuri a creatinine ratio greater than 300 mg/g Disease Active 12-26 00:00: 00 [facility] [id number] Chronic gout without tophus, unspecifie d cause, unspecifie d site Problem [facility] [id number] Hypertensi on, unspecifie d type Problem [facility] Impaired memory Impaired memory Problem [facility] Osteoporos is Other osteoporos is Problem [facility] Sinus problem Sinus problem Problem [facility] [id number] Chronic kidney disease, unspecifie d CKD stage Problem [facility] [id number] 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 Problem [facility] [id number] Skin lesions Problem [facility] [id number] Constipati on, unspecifie d constipati on type Problem [facility] [id number] Gastroesop hageal reflux disease, esophagiti s presence not specified Problem [facility] [id number] Abnormal kidney function Problem [facility] [id number] Chest pain, unspecifie d type Problem [facility] [id number] Status post fall Problem [facility] [id number] HDL deficiency Problem [facility] [id number] Mastalgia Problem [facility] [id number] Coccygeal pain Problem [facility] [id number] Left leg pain Problem [facility] Abnormal mammogram Abnormal mammogram Problem [facility] [id number] Abnormalit y on screening test Problem [facility] [id number] Peripheral edema Problem [facility] [id number] Left arm pain Problem [facility] [id number] Watery eyes Problem [facility] [id number] Shortness of breath Problem [facility] [id number] Acute pain of left shoulder Problem [facility] [id number] Acute pharyngiti s, unspecifie d etiology Problem [facility] [id number] Swelling Problem [facility] Dyspepsia Dyspepsia Problem [facility] [id number] Chronic kidney disease, stage 4 (severe) Problem [facility] [id number] Postmenopa usal atrophic vaginitis Problem [facility] [id number] Hypomagnes emia Problem [facility] [id number] Suprapubic abdominal pain Problem [facility] [id number] Type 2 diabetes mellitus with diabetic chronic kidney disease Problem [facility] [id number] Seasonal allergies Problem [facility] [id number] History of colon polyps Problem [facility] [id number] Bello's esophagus without dysplasia Problem [facility] [id number] Other chronic pain Problem [facility] [id number] Type 2 diabetes mellitus with hyperglyce jatin Problem [facility] Hyperlipid aemia Hyperlipem ia Problem [facility] [id number] Hypothyroi dism, unspecifie d type Problem [facility] [id number] Sea sickness, initial encounter Problem [facility] [id number] 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 Problem [facility] [id number] Cough Problem [facility] Allergic rhinitis Allergic rhinitis Problem [facility] Diabetes mellitus without complicati on Diabetes DMII without complicati ons Problem [facility] Essential hypertensi on Essential hypertensi on Problem [facility] Edema Edema Problem [facility] [id number] Hypercalce jatin Problem [facility] Allergies, Adverse Reactions, Alerts Allergy Name Allergy Type Status Severity Reaction(s) Onset Date Inactive Date Treating Clinician Comments Source Penicill ins DA Active MO RASH 2016-08 00:00: 00 [facility] Penicill ins Propensi ty to adverse reaction s Active Rash 02-07 00:00: 00 [facility] PENICILL INS Drug Class Active Rash 02-07 00:00: 00 [facility] Penicill ins Propensi ty to adverse reaction s Active Rash 02-07 00:00: 00 [facility] 0 Drug allergy Active Unknown [facility] Social History Social Habit Start Date Stop Date Quantity Comments Source History of Tobacco Use [facility] Sex Assigned At [facility] Exposure to SARS-CoV-2 (event) 2022-03-30 00:00:00 2022-04-09 12:54:00 Not sure [facility] Alcohol intake 2022-04-09 00:00:00 2022-04-09 00:00:00 Current non-drinker of alcohol (finding) [facility] Tobacco use and exposure 2016-03-07 00:00:00 2016-03-07 00:00:00 Smokeless tobacco non-user [facility] Smoking Status Start Date Stop Date Source Never Smoker [facility] Medications Ordered Medication Name Filled Medication Name Start Date Stop Date Current Medication? Ordering Clinician Indication Dosage Frequency Signature (SIG) Comments Components Source atorvastati n 40 mg tablet 04-09 13:05: 04 Yes 40mg Take 40 mg by mouth at bedtime. [facility] SITagliptin 100 mg tablet 04-09 13:02: 31 Yes 1 tablet [facility] sulfamethox azole-trime thoprim (BACTRIM DS) 800-160 mg per tablet 04-09 12:47: 20 04-09 00:00 :00 No 1 tablet [facility] aspirin (ASPIR-81) 81 mg EC tablet 04-09 12:46: 30 Yes 1 tablet [facility] neomycin-po lymyxin-dex amethasone (MAXITROL) 3.5 mg/g-10,000 unit/g-0.1 % ophthalmic ointment 03-01 14:10: 00 03-01 14:22 :00 No PRN, Starting on Sun03/01/22 at 0910, Until Sun03/01/22 at 09, Routine, Intra-op [facility] dexamethaso ne (DECADRON PHOSPHATE) injection 03-01 14:09: 00 03-01 14:22 :00 No PRN, Starting on Sun03/01/22 at 0909, Until Sun03/01/22 at 0922, Routine, Intra-op [facility] ceFAZolin (ANCEF) injection 03-01 14:09: 00 03-01 14:22 :00 No PRN, Starting on Sun03/01/22 at 0909, Until Sun03/01/22 at 09, JEFF, Intra-op [facility] carbachoL (MIOSTAT) 0.01 % intraocular injection 03-01 14:08: 00 03-01 14:22 :00 No PRN, Starting on Sun03/01/22 at 0908, Until Sun03/01/22 at 09, Routine, Intra-op [facility] chondroitin sulf-sod hyaluronate (DUOVISC VISCO ELASTIC) intraocular injection 03-01 14:08: 00 03-01 14:22 :00 No PRN, Starting on Sun03/01/22 at 0908, Until Sun03/01/22 at 09, Routine, Intra-op [facility] EPINEPHrine 1:1,000 (1 mg/mL) (ADRENALIN) injection 03-01 14:05: 00 03-01 14:22 :00 No PRN, Starting on Sun03/01/22 at 0905, Until Sun03/01/22 at 09, Routine, Intra-op [facility] balanced salt irrig soln comb1 (BSS PLUS) ophthalmic solution 500 mL bag 03-01 14:05: 00 03-01 14:22 :00 No PRN, Starting on Sun03/01/22 at 0905, Until Sun03/01/22 at 09, Routine, Intra-op [facility] sodium chloride (NS) injection 03-01 14:05: 00 03-01 14:22 :00 No PRN, Starting on Sun03/01/22 at 0905, Until Sun03/01/22 at 09, Routine, Intra-op [facility] water for irrigation irrigation solution 03-01 14:02: 00 03-01 14:22 :00 No PRN, Starting on Sun03/01/22 at 0902, Until Sun03/01/22 at 09, Routine, Intra-op [facility] Hyaluronida se, Human Recomb. (HYLENEX) injection 03-01 13:58: 00 03-01 14:22 :00 No PRN, Starting on Sun03/01/22 at 0858, Until Sun03/01/22 at 0922, Routine, Intra-op [facility] eye block syringe 11 mL 03-01 13:58: 00 03-01 14:22 :00 No PRN, Starting on Sun03/01/22 at 0858, Until Sun03/01/22 at 0922, Intra-op [facility] cyclopent 1%-tropic 1%-phenyl 2.5%-ketor 0.5% (MYDRIATIC #5) ophthalmic solution syringe 0.5 mL 03-01 13:00: 00 03-01 12:49 :00 No .5mL 0.5 mL, Right Eye, ONCE, 1 dose, On Sun03/01/22 at 0800, Routine, DSU Pre-op [facility] lactated ringers IV infusion 1,000 mL 03-01 13:00: 00 03-01 12:52 :00 No 1000mL at 42 mL/hr, 1,000 mL, IV Infusion, ONCE, 1 dose, On Sun03/01/22 at 0800, Routine, DSU Pre-op [facility] ASPIRIN 81 MG ORAL TAB 03-01 09:55: 29 Yes 81mg Take 81 mg by mouth daily. [facility] insulin glarginejovananlog (LANTUS SC) 03-01 09:55: 29 Yes 50U inject 50 Units under the skin daily. Each morning [facility] neomycin-po lymyxin-dex amethasone (MAXITROL) 3.5 mg/g-10,000 unit/g-0.1 % ophthalmic ointment 02-15 14:31: 00 02-15 14:34 :14 No PRN, Starting on Sun02/15/22 at 0931, Until Sun02/15/22 at 0934, Routine, Intra-op [facility] sodium chloride (NS) injection 02-15 14:28: 00 02-15 14:34 :14 No PRN, Starting on Sun02/15/22 at 0928, Until Sun02/15/22 at 0934, Routine, Intra-op [facility] dexamethaso ne (DECADRON PHOSPHATE) injection 02-15 14:28: 00 02-15 14:34 :14 No PRN, Starting on Sun02/15/22 at 0928, Until Sun02/15/22 at 0934, Routine, Intra-op [facility] ceFAZolin (ANCEF) injection 02-15 14:28: 00 02-15 14:34 :14 No PRN, Starting on Sun02/15/22 at 0928, Until Sun02/15/22 at 0934, JEFF, Intra-op [facility] carbachoL (MIOSTAT) 0.01 % intraocular injection 02-15 14:26: 00 02-15 14:34 :14 No PRN, Starting on Sun02/15/22 at 0926, Until Sun02/15/22 at 0934, Routine, Intra-op [facility] EPINEPHrine 1:1,000 (1 mg/mL) (ADRENALIN) injection 02-15 14:14: 00 02-15 14:34 :14 No PRN, Starting on Sun02/15/22 at 0914, Until Sun02/15/22 at 09, Routine, Intra-op [facility] chondroitin sulf-sod hyaluronate (DUOVISC VISCO ELASTIC) intraocular injection 02-15 14:14: 00 02-15 14:34 :14 No PRN, Starting on Sun02/15/22 at 0914, Until Sun02/15/22 at 0934, Routine, Intra-op [facility] balanced salt irrig soln comb1 (BSS PLUS) ophthalmic solution 500 mL bag 02-15 14:14: 00 02-15 14:34 :14 No PRN, Starting on Sun02/15/22 at 0914, Until Sun02/15/22 at 0934, Routine, Intra-op [facility] water for irrigation irrigation solution 02-15 14:11: 00 02-15 14:34 :14 No PRN, Starting on Sun02/15/22 at 0911, Until Sun02/15/22 at 0934, Routine, Intra-op [facility] Hyaluronida se, Human Recomb. (HYLENEX) injection 02-15 14:07: 00 02-15 14:34 :14 No PRN, Starting on Sun02/15/22 at 0907, Until Sun02/15/22 at 0934, Routine, Intra-op [facility] eye block syringe 11 mL 02-15 14:07: 00 02-15 14:34 :14 No PRN, Starting on Sun02/15/22 at 0907, Until Sun02/15/22 at 0934, Intra-op [facility] cyclopent 1%-tropic 1%-phenyl 2.5%-ketor 0.5% (MYDRIATIC #5) ophthalmic solution syringe 0.5 mL 02-15 12:45: 00 02-15 12:48 :00 No .5mL 0.5 mL, Left Eye, ONCE, 1 dose, On Sun02/15/22 at 0745, Routine, DSU Pre-op [facility] lactated ringers IV infusion 1,000 mL 02-15 12:45: 00 02-15 12:59 :00 No 1000mL at 42 mL/hr, 1,000 mL, IV Infusion, ONCE, 1 dose, On Sun02/15/22 at 0745, Routine, DSU Pre-op [facility] ASPIRIN 81 MG ORAL TAB 02-15 10:11: 36 Yes 81mg Take 81 mg by mouth daily. [facility] insulin glargine,jovan pandeyrecGretaanlog (LANTUS SC) 02-15 10:11: 36 Yes 50U inject 50 Units under the skin daily. Each morning [facility] omeprazole 20 mg capsule 02-09 00:00: 00 Yes 20mg Take 20 mg by mouth in the morning and 20 mg in the evening. [facility] Omeprazole 20 MG Omeprazole 20 MG 02-09 00:00: 00 No 1{capsu le} BID Omeprazole 20 MG Omeprazole 20 MG Omeprazole 20 MG 02-09 00:00: 00 No 1{capsu le} BID Omeprazole 20 MG Omeprazole 20 MG Omeprazole 20 MG 02-09 00:00: 00 No 1{capsu le} BID Omeprazole 20 MG Omeprazole 20 MG Omeprazole 20 MG 02-09 00:00: 00 No 1{capsu le} BID Omeprazole 20 MG Omeprazole 20 MG Omeprazole 20 MG 02-09 00:00: 00 No 1{capsu le} BID Omeprazole 20 MG Omeprazole 20 MG Omeprazole 20 MG 02-09 00:00: 00 No 1{capsu le} BID Omeprazole 20 MG Sodium Polystyrene Sulfonate 15 GM/60ML Sodium Polystyrene Sulfonate 15 GM/60ML 02-09 00:00: 00 No QD Sodium Polystyren e Sulfonate 15 GM/60ML Omeprazole 20 MG Omeprazole 20 MG 02-09 00:00: 00 No 1{capsu le} BID Omeprazole 20 MG Omeprazole 20 MG Omeprazole 20 MG 02-09 00:00: 00 No 1{capsu le} BID Omeprazole 20 MG Kayexalate 15 gram Kayexalate 15 gram 02-09 00:00: 00 No QD Kayexalate 15 gram Omeprazole 20 MG Omeprazole 20 MG 02-09 00:00: 00 No 1{capsu le} BID Omeprazole 20 MG Clarithromy marciano 500 MG Clarithromy marciano 500 MG 02-09 00:00: 00 02-19 00:00 :00 No 1{table t} BID Clarithrom ycin 500 MG metroNIDAZO LE 500 MG metroNIDAZO LE 500 MG 02-09 00:00: 00 02-19 00:00 :00 No 1{table t} TID metroNIDAZ OLE 500 MG Clarithromy marciano 500 MG Clarithromy marciano 500 MG 02-09 00:00: 00 02-19 00:00 :00 No 1{table t} BID Clarithrom ycin 500 MG metroNIDAZO LE 500 MG metroNIDAZO LE 500 MG 02-09 00:00: 00 02-19 00:00 :00 No 1{table t} TID metroNIDAZ OLE 500 MG insulin glargine,jovan pandeyrecGretaanlog (LANTUS SC) 02-08 11:13: 06 Yes 50U inject 50 Units under the skin daily. Each morning [facility] ASPIRIN 81 MG ORAL TAB 02-08 11:06: 37 Yes 81mg Take 81 mg by mouth daily. [facility] Magnesium Oxide 500 mg Cap 2022-0 02-08 00:00: 00 Yes as directed [facility] Magnesium Oxide 500 MG Magnesium Oxide 500 MG 2-0 02-08 00:00: 00 No Magnesium Oxide 500 MG Fish Oil 500 MG Fish Oil 500 MG 2022-0 02-08 00:00: 00 No 1{capsu le} BID Fish Oil 500 MG Magnesium Oxide 500 MG Magnesium Oxide 500 MG 2022-0 02-08 00:00: 00 No Magnesium Oxide 500 MG Fish Oil 500 MG Fish Oil 500 MG 2022-0 02-08 00:00: 00 No 1{capsu le} BID Fish Oil 500 MG Magnesium Oxide 500 MG Magnesium Oxide 500 MG 2-0 02-08 00:00: 00 No Magnesium Oxide 500 MG Fish Oil 500 MG Fish Oil 500 MG 2-0 02-08 00:00: 00 No 1{capsu le} BID Fish Oil 500 MG Magnesium Oxide 500 MG Magnesium Oxide 500 MG 2-0 02-08 00:00: 00 No Magnesium Oxide 500 MG Fish Oil 500 MG Fish Oil 500 MG 2-0 02-08 00:00: 00 No 1{capsu le} BID Fish Oil 500 MG Magnesium Oxide 500 MG Magnesium Oxide 500 MG 2-0 02-08 00:00: 00 No Magnesium Oxide 500 MG Fish Oil 500 MG Fish Oil 500 MG 2-0 02-08 00:00: 00 No 1{capsu le} BID Fish Oil 500 MG Magnesium Oxide 500 MG Magnesium Oxide 500 MG 2-0 02-08 00:00: 00 No Magnesium Oxide 500 MG Fish Oil 500 MG Fish Oil 500 MG 2-0 02-08 00:00: 00 No 1{capsu le} BID Fish Oil 500 MG Magnesium Oxide 500 MG Magnesium Oxide 500 MG 2-0 02-08 00:00: 00 No Magnesium Oxide 500 MG Fish Oil 500 MG Fish Oil 500 MG 2-0 02-08 00:00: 00 No 1{capsu le} BID Fish Oil 500 MG Magnesium Oxide 500 MG Magnesium Oxide 500 MG 2-0 02-08 00:00: 00 No Magnesium Oxide 500 MG Fish Oil 500 MG Fish Oil 500 MG 2-0 29 00:00: 00 No 1{capsu le} BID Fish Oil 500 MG Magnesium Oxide 500 MG Magnesium Oxide 500 MG 2021-0 - 00:00: 00 No Magnesium Oxide 500 MG Fish Oil 500 MG Fish Oil 500 MG 2021-0 02-08 00:00: 00 No 1{capsu le} BID Fish Oil 500 MG triamcinolo ne acetonide 0.1 % cream 2021-0 6-13 00:00: 00 Yes 1{appli cator} Apply 1 Applicator to area(s) 2 (two) times daily as needed. [facility] Acyclovir 5 % Acyclovir 5 % 2021-0 3-02 00:00: 00 No 6xD Acyclovir 5 % Acyclovir 5 % Acyclovir 5 % 2-0 3-02 00:00: 00 No 6xD Acyclovir 5 % Acyclovir 5 % Acyclovir 5 % 2021-0 3-02 00:00: 00 No 6xD Acyclovir 5 % Acyclovir 5 % Acyclovir 5 % 2-0 3-02 00:00: 00 No 6xD Acyclovir 5 % Acyclovir 5 % Acyclovir 5 % 2-0 3-02 00:00: 00 No 6xD Acyclovir 5 % Acyclovir 5 % Acyclovir 5 % 2-0 3-02 00:00: 00 No 6xD Acyclovir 5 % Acyclovir 5 % Acyclovir 5 % 2-0 3-02 00:00: 00 No 6xD Acyclovir 5 % Acyclovir 5 % Acyclovir 5 % 2-0 3-02 00:00: 00 No 6xD Acyclovir 5 % Acyclovir 5 % Acyclovir 5 % 2-0 3-02 00:00: 00 No 6xD Acyclovir 5 % Acyclovir 5 % Acyclovir 5 % 2-0 3-02 00:00: 00 No 6xD Acyclovir 5 % Acyclovir 5 % Acyclovir 5 % 2-0 3-02 00:00: 00 No 6xD Acyclovir 5 % Acyclovir 5 % Acyclovir 5 % 2-0 3-02 00:00: 00 No 6xD Acyclovir 5 % Cipro 500 MG Cipro 500 MG 2020-08-19 00:00: 00 07-06 00:00 :00 No 1{table t} BID Cipro 500 MG valACYclovi r HCl 500 MG valACYclovi r HCl 500 MG 2020-08 0- 00:00: 00 06-25 00:00 :00 No 1{table t} QD valACYclov ir HCl 500 MG valACYclovi r HCl 500 MG valACYclovi r HCl 500 MG 2020-08 0- 00:00: 00 06-25 00:00 :00 No 1{table t} QD Bactrim DS 800-160 MG Bactrim DS 800-160 MG 2020-08 0 00:00: 00 06-11 00:00 :00 No 1{table t} BID Bactrim DS 800-160 MG estradioL (ESTRACE) 0.01 % (0.1 mg/gram) vaginal cream 04-13 00:00: 00 Yes 2 gram per vaginal [facility] Estrace 0.1 MG/GM Estrace 0.1 MG/GM 2020-0 04-13 00:00: 00 No Estrace 0.1 MG/GM Estrace 0.1 MG/GM Estrace 0.1 MG/GM 2020-0 04-13 00:00: 00 No Estrace 0.1 MG/GM Estrace 0.1 MG/GM Estrace 0.1 MG/GM 2020-0 04-13 00:00: 00 No Estrace 0.1 MG/GM Estrace 0.1 MG/GM Estrace 0.1 MG/GM 2020-0 04-13 00:00: 00 No Estrace 0.1 MG/GM Estrace 0.1 MG/GM Estrace 0.1 MG/GM 1-0 04-13 00:00: 00 No Estrace 0.1 MG/GM Estrace 0.1 MG/GM Estrace 0.1 MG/GM 2020-0 04-13 00:00: 00 No Estrace 0.1 MG/GM Estrace 0.1 MG/GM Estrace 0.1 MG/GM 2020-0 04-13 00:00: 00 No Estrace 0.1 MG/GM Estrace 0.1 MG/GM Estrace 0.1 MG/GM 1-0 04-13 00:00: 00 No Estrace 0.1 MG/GM Estrace 0.1 MG/GM Estrace 0.1 MG/GM 2021-0 04-13 00:00: 00 No Estrace 0.1 MG/GM Estrace 0.1 MG/GM Estrace 0.1 MG/GM 2021-0 04-13 00:00: 00 No Estrace 0.1 MG/GM Estrace 0.1 MG/GM 2021-0 04-13 00:00: 00 No Estrace 0.1 MG/GM Estrace 0.1 MG/GM Estrace 0.1 MG/GM 2021-0 04-13 00:00: 00 No Estrace 0.1 MG/GM Estrace 0.1 MG/GM Estrace 0.1 MG/GM 2021-0 04-13 00:00: 00 No Estrace 0.1 MG/GM Estrace 0.1 MG/GM Estrace 0.1 MG/GM 2021-0 04-13 00:00: 00 No Estrace 0.1 MG/GM Estrace 0.1 MG/GM Estrace 0.1 MG/GM 2021-0 04-13 00:00: 00 No Estrace 0.1 MG/GM Bactrim DS 800-160 MG Bactrim DS 800-160 MG 202-0 04-13 00:00: 00 04-23 00:00 :00 No 1{table t} BID Bactrim DS 800-160 MG Lancets - Lancets - 11-07 00:00: 00 No Lancets - Lancets - Lancets - 0 11-07 00:00: 00 No Lancets - Lancets - Lancets - 0 11-07 00:00: 00 No Lancets - Lancets - Lancets - 0 11-07 00:00: 00 No Lancets - Lancets - Lancets - 0 11-07 00:00: 00 No Lancets - Lancets - Lancets - 0 11-07 00:00: 00 No Lancets - Blood Glucose Test Strip Blood Glucose Test Strip 11-07 00:00: 00 No 1{table t} QD Blood Glucose Test Strip Lancets - Lancets - 11-07 00:00: 00 No Lancets - Blood Glucose Monitor Blood Glucose Monitor 2018-0 11-07 00:00: 00 No Blood Glucose Monitor Lancets - Lancets - 2019-0 11-07 00:00: 00 No Lancets - Lancets - Lancets - 2019-0 11-07 00:00: 00 No Lancets - Blood Glucose Monitor Blood Glucose Monitor 0 11-07 00:00: 00 No Lancets - Lancets - 2019-0 11-07 00:00: 00 No Lancets - Lancets - 2019-0 11-07 00:00: 00 No Lancets - Blood Glucose Monitor Blood Glucose Monitor 0 11-07 00:00: 00 No Blood Glucose Monitor Lancets - Lancets - 2019-0 11-07 00:00: 00 No Lancets - Lancets - Lancets - 2019-0 11-07 00:00: 00 No Lancets - Lancets - Lancets - 2019-0 11-07 00:00: 00 No Lancets - Lancets - Lancets - 2019-0 11-07 00:00: 00 No Lancets - Blood Glucose Monitor Blood Glucose Monitor 0 11-07 00:00: 00 No Blood Glucose Monitor Lancets - Lancets - 2019-0 11-07 00:00: 00 No Lancets - Lancets - Lancets - 2019-0 11-07 00:00: 00 No Lancets - Lancets - Lancets - 2019-0 11-07 00:00: 00 No Lancets - Lancets - Lancets - 2019-0 11-07 00:00: 00 No Lancets - Pen Tamms 32G X 4 MM Pen Tamms 32G X 4 MM 0 08-29 00:00: 00 No Pen Tamms 32G X 4 MM Pen Tamms 32G X 4 MM Pen Tamms 32G X 4 MM 0 08-29 00:00: 00 No Pen Tamms 32G X 4 MM Pen Tamms 32G X 4 MM Pen Tamms 32G X 4 MM 0 08-29 00:00: 00 No Pen Tamms 32G X 4 MM Pen Tamms 32G X 4 MM Pen Tamms 32G X 4 MM 0 08-29 00:00: 00 No Pen Tamms 32G X 4 MM Pen Tamms 32G X 4 MM Pen Tamms 32G X 4 MM 0 08-29 00:00: 00 No Pen Tamms 32G X 4 MM Pen Tamms 32G X 4 MM Pen Tamms 32G X 4 MM 0 08-29 00:00: 00 No Pen Tamms 32G X 4 MM Pen Tamms 32G X 4 MM Pen Tamms 32G X 4 MM 0 08-29 00:00: 00 No Pen Tamms 32G X 4 MM Pen Tamms 32G X 4 MM Pen Tamms 32G X 4 MM 0 08-29 00:00: 00 No Pen Tamms 32G X 4 MM Pen Tamms 32G X 4 MM Pen Tamms 32G X 4 MM 0 08-29 00:00: 00 No Pen Tamms 32G X 4 MM Pen Tamms 32G X 4 MM Pen Tamms 32G X 4 MM 0 08-29 00:00: 00 No Pen Tamms 32G X 4 MM Pen Tamms 32G X 4 MM 0 08-29 00:00: 00 No Pen Tamms 32G X 4 MM Pen Tamms 32G X 4 MM Pen Tamms 32G X 4 MM 0 08-29 00:00: 00 No Pen Tamms 32G X 4 MM Pen Tamms 32G X 4 MM Pen Tamms 32G X 4 MM 0 08-29 00:00: 00 No Pen Tamms 32G X 4 MM Pen Tamms 32G X 4 MM Pen Tamms 32G X 4 MM 0 08-29 00:00: 00 No Pen Tamms 32G X 4 MM Pen Tamms 32G X 4 MM Pen Tamms 32G X 4 MM 0 08-29 00:00: 00 No Pen Tamms 32G X 4 MM Pen Tamms 32G X 4 MM Pen Tamms 32G X 4 MM 0 08-29 00:00: 00 No Pen Tamms 32G X 4 MM Pen Tamms 32G X 4 MM Pen Tamms 32G X 4 MM 0 08-29 00:00: 00 No Pen Tamms 32G X 4 MM colchicine (COLCRYS) 0.6 mg tablet 08-13 00:00: 00 Yes .6mg Take 1 tablet by mouth daily. [facility]uc[facility] (FREESTYLE LITE METER) Kit 01-29 00:00: 00 Yes Use as directed, DX:E11.9 [facility] sugar diagnostic (FREESTYLE LITE STRIPS) strip 01-29 00:00: 00 Yes Use as directed, BID, Dx;E11.9 [facility] traMADOL (ULTRAM) 50 mg tablet 10-01 00:00: 00 Yes 50mg Take 1 tablet by mouth every 6 (six) hours as needed for Pain (scale 4-6). Davin Bowling PA-C / Eliel Bejarano MD JOLANTA# [id number] DPS# [id number] x Lic.# [id number] NPI# [id number] [facility] lisinopril (PRINIVIL,Z ESTRIL) 5 mg tablet 2015-08 00:00: 00 Yes [id number] 5mg Take 1 tablet by mouth daily. [facility] acetaminoph en-codeine (TYLENOL #3) 300-30 mg tablet 01-10 00:00: 00 Yes 1{tbl} Take 1 tablet by mouth at bedtime. [facility] Sucralfate 1 GM Sucralfate 1 GM No 1{table t_as_ne eded} Sucralfate 1 GM Tradjenta 5 MG Tradjenta 5 MG No 1{table t} QD Levothyroxi ne Sodium 50 MCG Levothyroxi ne Sodium 50 MCG No QD Chlorhexidi ne Gluconate 0.12 % Chlorhexidi ne Gluconate 0.12 % No EQ Allergy Relief (Cetirizine ) 10 MG EQ Allergy Relief (Cetirizine ) 10 MG No Lisinopril 5 MG Lisinopril 5 MG No 1{table t} QD Famotidine 20 MG Famotidine 20 MG No 1{table t} Nitroglycer in 0.4 MG Nitroglycer in 0.4 MG No Lovastatin 20 mg Lovastatin 20 mg No QD Albuterol Sulfate HFA 108 (90 Base) MCG/ACT Albuterol Sulfate HFA 108 (90 Base) MCG/ACT No 2{puffs _as_nee ded} QID Sucralfate 1 GM Sucralfate 1 GM No 1{table t_as_ne eded} Lantus SoloStar 100 UNIT/ML Lantus SoloStar 100 UNIT/ML No QD Fluticasone Propionate 50 MCG/ACT Fluticasone Propionate 50 MCG/ACT No Glimepiride 1 MG Glimepiride 1 MG No 1{table t} Metoprolol Tartrate 25 mg Metoprolol Tartrate 25 mg No BID Flonase 50 MCG/ACT Flonase 50 MCG/ACT No 2{spray _in_eac h_nostr il} QD Flonase 50 MCG/ACT Januvia 100 MG Januvia 100 MG No 1{table t} QD Januvia 100 MG Albuterol Sulfate HFA 108 (90 Base) MCG/ACT Albuterol Sulfate HFA 108 (90 Base) MCG/ACT No 2{puffs _as_nee ded} QID Albuterol Sulfate HFA 108 (90 Base) MCG/ACT Glimepiride 1 MG Glimepiride 1 MG No 1{table t} QD Glimepirid e 1 MG Fluticasone Propionate 50 MCG/ACT Fluticasone Propionate 50 MCG/ACT No Fluticason e Propionate 50 MCG/ACT Albuterol Sulfate HFA 108 (90 Base) MCG/ACT Albuterol Sulfate HFA 108 (90 Base) MCG/ACT No 2{puffs _as_nee ded} QID Albuterol Sulfate HFA 108 (90 Base) MCG/ACT Levothyroxi ne Sodium 50 MCG Levothyroxi ne Sodium 50 MCG No QD Levothyrox ine Sodium 50 MCG Tradjenta 5 MG Tradjenta 5 MG No 1{table t} QD Tradjenta 5 MG Lisinopril 5 MG Lisinopril 5 MG No 1{table t} QD Lisinopril 5 MG Metoprolol Tartrate 25 mg Metoprolol Tartrate 25 mg No BID Metoprolol Tartrate 25 mg Lantus SoloStar 100 UNIT/ML Lantus SoloStar 100 UNIT/ML No QD Lantus SoloStar 100 UNIT/ML Flonase 50 MCG/ACT Flonase 50 MCG/ACT No 2{spray _in_eac h_nostr il} QD Flonase 50 MCG/ACT Januvia 100 MG Januvia 100 MG No 1{table t} QD Januvia 100 MG EQ Allergy Relief (Cetirizine ) 10 MG EQ Allergy Relief (Cetirizine ) 10 MG No EQ Allergy Relief (Cetirizin e) 10 MG Famotidine 20 MG Famotidine 20 MG No 1{table t} Famotidine 20 MG Chlorhexidi ne Gluconate 0.12 % Chlorhexidi ne Gluconate 0.12 % No Chlorhexid ine Gluconate 0.12 % Lovastatin 20 mg Lovastatin 20 mg No QD Lovastatin 20 mg Sucralfate 1 GM Sucralfate 1 GM No 1{table t_as_ne eded} Sucralfate 1 GM Nitroglycer in 0.4 MG Nitroglycer in 0.4 MG No Nitroglyce rin 0.4 MG Chlorhexidi ne Gluconate 0.12 % Chlorhexidi ne Gluconate 0.12 % No Chlorhexid ine Gluconate 0.12 % Albuterol Sulfate HFA 108 (90 Base) MCG/ACT Albuterol Sulfate HFA 108 (90 Base) MCG/ACT No 2{puffs _as_nee ded} QID Albuterol Sulfate HFA 108 (90 Base) MCG/ACT Pantoprazol e Sodium 40 MG Pantoprazol e Sodium 40 MG No 1{table t} QD Pantoprazo le Sodium 40 MG Nitroglycer in 0.4 MG Nitroglycer in 0.4 MG No Nitroglyce rin 0.4 MG Flonase 50 MCG/ACT Flonase 50 MCG/ACT No 2{spray _in_eac h_nostr il} QD Flonase 50 MCG/ACT Blood Glucose Test Strip Blood Glucose Test Strip No Blood Glucose Test Strip Sucralfate 1 GM Sucralfate 1 GM No 1{table t_as_ne eded} Sucralfate 1 GM Lovastatin 20 mg Lovastatin 20 mg No QD Lovastatin 20 mg Metoprolol Tartrate 25 mg Metoprolol Tartrate 25 mg No BID Metoprolol Tartrate 25 mg Januvia 100 MG Januvia 100 MG No 1{table t} QD Januvia 100 MG Levothyroxi ne Sodium 50 MCG Levothyroxi ne Sodium 50 MCG No QD Levothyrox ine Sodium 50 MCG Tradjenta 5 MG Tradjenta 5 MG No 1{table t} QD Tradjenta 5 MG Cetirizine HCl 10 MG Cetirizine HCl 10 MG No 1{table t} Cetirizine HCl 10 MG Bactrim DS 800-160 MG Bactrim DS 800-160 MG No 1{table t} BID Bactrim DS 800-160 MG Glimepiride 1 MG Glimepiride 1 MG No 1{table t} QD Glimepirid e 1 MG Fluticasone Propionate 50 MCG/ACT Fluticasone Propionate 50 MCG/ACT No Fluticason e Propionate 50 MCG/ACT Famotidine 20 MG Famotidine 20 MG No 1{table t} Famotidine 20 MG Lantus SoloStar 100 UNIT/ML Lantus SoloStar 100 UNIT/ML No QD Lantus SoloStar 100 UNIT/ML Lisinopril 5 MG Lisinopril 5 MG No 1{table t} QD Lisinopril 5 MG Cetirizine HCl 10 MG Cetirizine HCl 10 MG No 1{table t} Cetirizine HCl 10 MG Chlorhexidi ne Gluconate 0.12 % Chlorhexidi ne Gluconate 0.12 % No Chlorhexid ine Gluconate 0.12 % Albuterol Sulfate HFA 108 (90 Base) MCG/ACT Albuterol Sulfate HFA 108 (90 Base) MCG/ACT No 2{puffs _as_nee ded} QID Albuterol Sulfate HFA 108 (90 Base) MCG/ACT Pantoprazol e Sodium 40 MG Pantoprazol e Sodium 40 MG No 1{table t} QD Pantoprazo le Sodium 40 MG Nitroglycer in 0.4 MG Nitroglycer in 0.4 MG No Nitroglyce rin 0.4 MG Flonase 50 MCG/ACT Flonase 50 MCG/ACT No 2{spray _in_eac h_nostr il} QD Flonase 50 MCG/ACT Blood Glucose Test Strip Blood Glucose Test Strip No Blood Glucose Test Strip Sucralfate 1 GM Sucralfate 1 GM No 1{table t_as_ne eded} Sucralfate 1 GM Lovastatin 20 mg Lovastatin 20 mg No QD Lovastatin 20 mg Metoprolol Tartrate 25 mg Metoprolol Tartrate 25 mg No BID Metoprolol Tartrate 25 mg Januvia 100 MG Januvia 100 MG No 1{table t} QD Januvia 100 MG Levothyroxi ne Sodium 50 MCG Levothyroxi ne Sodium 50 MCG No QD Levothyrox ine Sodium 50 MCG Tradjenta 5 MG Tradjenta 5 MG No 1{table t} QD Tradjenta 5 MG Cetirizine HCl 10 MG Cetirizine HCl 10 MG No 1{table t} Cetirizine HCl 10 MG Bactrim DS 800-160 MG Bactrim DS 800-160 MG No 1{table t} BID Bactrim DS 800-160 MG Glimepiride 1 MG Glimepiride 1 MG No 1{table t} QD Glimepirid e 1 MG Fluticasone Propionate 50 MCG/ACT Fluticasone Propionate 50 MCG/ACT No Fluticason e Propionate 50 MCG/ACT Famotidine 20 MG Famotidine 20 MG No 1{table t} Famotidine 20 MG EQ Allergy Relief (Cetirizine ) 10 MG EQ Allergy Relief (Cetirizine ) 10 MG No EQ Allergy Relief (Cetirizin e) 10 MG Lantus SoloStar 100 UNIT/ML Lantus SoloStar 100 UNIT/ML No QD Lantus SoloStar 100 UNIT/ML Lisinopril 5 MG Lisinopril 5 MG No 1{table t} QD Lisinopril 5 MG Diclofenac Sodium 1 % Diclofenac Sodium 1 % No TID Diclofenac Sodium 1 % Albuterol Sulfate HFA 108 (90 Base) MCG/ACT Albuterol Sulfate HFA 108 (90 Base) MCG/ACT No 2{puffs _as_nee ded} QID Albuterol Sulfate HFA 108 (90 Base) MCG/ACT Januvia 100 MG Januvia 100 MG No 1{table t} QD Januvia 100 MG Nitroglycer in 0.4 MG Nitroglycer in 0.4 MG No Nitroglyce rin 0.4 MG Chlorhexidi ne Gluconate 0.12 % Chlorhexidi ne Gluconate 0.12 % No Chlorhexid ine Gluconate 0.12 % Levothyroxi ne Sodium 50 MCG Levothyroxi ne Sodium 50 MCG No QD Levothyrox ine Sodium 50 MCG Sucralfate 1 GM Sucralfate 1 GM No 1{table t_as_ne eded} Sucralfate 1 GM Tradjenta 5 MG Tradjenta 5 MG No 1{table t} QD Tradjenta 5 MG EQ Allergy Relief (Cetirizine ) 10 MG EQ Allergy Relief (Cetirizine ) 10 MG No EQ Allergy Relief (Cetirizin e) 10 MG Pantoprazol e Sodium 40 MG Pantoprazol e Sodium 40 MG No 1{table t} QD Pantoprazo le Sodium 40 MG Diclofenac Sodium 1 % Diclofenac Sodium 1 % No TID Diclofenac Sodium 1 % Bactrim DS 800-160 MG Bactrim DS 800-160 MG No 1{table t} BID Bactrim DS 800-160 MG Lisinopril 5 MG Lisinopril 5 MG No 1{table t} QD Lisinopril 5 MG Famotidine 20 MG Famotidine 20 MG No 1{table t} Famotidine 20 MG Fluticasone Propionate 50 MCG/ACT Fluticasone Propionate 50 MCG/ACT No Fluticason e Propionate 50 MCG/ACT Metoprolol Tartrate 25 MG Metoprolol Tartrate 25 MG No Metoprolol Tartrate 25 MG Lantus SoloStar 100 UNIT/ML Lantus SoloStar 100 UNIT/ML No QD Lantus SoloStar 100 UNIT/ML Flonase 50 MCG/ACT Flonase 50 MCG/ACT No 2{spray _in_eac h_nostr il} QD Flonase 50 MCG/ACT Lovastatin 20 MG Lovastatin 20 MG No Lovastatin 20 MG Glimepiride 1 MG Glimepiride 1 MG No 1{table t} QD Glimepirid e 1 MG Famotidine 20 MG Famotidine 20 MG No 1{table t} Famotidine 20 MG Lisinopril 5 MG Lisinopril 5 MG No 1{table t} QD Lisinopril 5 MG Tradjenta 5 MG Tradjenta 5 MG No 1{table t} QD Tradjenta 5 MG Levothyroxi ne Sodium 50 MCG Levothyroxi ne Sodium 50 MCG No QD Levothyrox ine Sodium 50 MCG Lovastatin 20 MG Lovastatin 20 MG No Lovastatin 20 MG EQ Allergy Relief (Cetirizine ) 10 MG EQ Allergy Relief (Cetirizine ) 10 MG No EQ Allergy Relief (Cetirizin e) 10 MG Sucralfate 1 GM Sucralfate 1 GM No Sucralfate 1 GM Fluticasone Propionate 50 MCG/ACT Fluticasone Propionate 50 MCG/ACT No Fluticason e Propionate 50 MCG/ACT Glimepiride 1 MG Glimepiride 1 MG No 1{table t} QD Glimepirid e 1 MG Bactrim DS 800-160 MG Bactrim DS 800-160 MG No 1{table t} BID Bactrim DS 800-160 MG Pantoprazol e Sodium 40 MG Pantoprazol e Sodium 40 MG No 1{table t} QD Pantoprazo le Sodium 40 MG Lantus SoloStar 100 UNIT/ML Lantus SoloStar 100 UNIT/ML No QD Lantus SoloStar 100 UNIT/ML Diclofenac Sodium 1 % Diclofenac Sodium 1 % No TID Diclofenac Sodium 1 % Chlorhexidi ne Gluconate 0.12 % Chlorhexidi ne Gluconate 0.12 % No Chlorhexid ine Gluconate 0.12 % Metoprolol Tartrate 25 MG Metoprolol Tartrate 25 MG No Metoprolol Tartrate 25 MG Januvia 100 MG Januvia 100 MG No 1{table t} QD Januvia 100 MG Nitroglycer in 0.4 MG Nitroglycer in 0.4 MG No Nitroglyce rin 0.4 MG Albuterol Sulfate HFA 108 (90 Base) MCG/ACT Albuterol Sulfate HFA 108 (90 Base) MCG/ACT No 2{puffs _as_nee ded} QID Albuterol Sulfate HFA 108 (90 Base) MCG/ACT Flonase 50 MCG/ACT Flonase 50 MCG/ACT No 2{spray _in_eac h_nostr il} QD Flonase 50 MCG/ACT Albuterol Sulfate HFA 108 (90 Base) MCG/ACT Albuterol Sulfate HFA 108 (90 Base) MCG/ACT No 2{puffs _as_nee ded} QID Albuterol Sulfate HFA 108 (90 Base) MCG/ACT Cetirizine HCl 10 MG Cetirizine HCl 10 MG No 1{table t} Cetirizine HCl 10 MG Lantus SoloStar Lantus SoloStar Yes Hollie Millender 45 units [facility] Aspir-81 81 MG Aspir-81 81 MG No 1{table t} QD Aspir-81 81 MG Cetirizine HCl 10 MG Cetirizine HCl 10 MG No 1{table t} Cetirizine HCl 10 MG Carvedilol 6.25 MG Carvedilol 6.25 MG No 1{table t_with_ food} BID Carvedilol 6.25 MG prednisoLON E Acetate 1 % prednisoLON E Acetate 1 % No 1{drop_ into_af fected_ eye} BID prednisoLO NE Acetate 1 % Sucralfate 1 GM Sucralfate 1 GM No Sucralfate 1 GM Bactrim DS 800-160 MG Bactrim DS 800-160 MG No 1{table t} BID Bactrim DS 800-160 MG Lantus SoloStar 100 UNIT/ML Lantus SoloStar 100 UNIT/ML No QD Lantus SoloStar 100 UNIT/ML Chlorhexidi ne Gluconate 0.12 % Chlorhexidi ne Gluconate 0.12 % No Chlorhexid ine Gluconate 0.12 % Levothyroxi ne Sodium 50 MCG Levothyroxi ne Sodium 50 MCG No QD Levothyrox ine Sodium 50 MCG Nitroglycer in 0.4 MG Nitroglycer in 0.4 MG No Nitroglyce rin 0.4 MG Fluticasone Propionate 50 MCG/ACT Fluticasone Propionate 50 MCG/ACT No Fluticason e Propionate 50 MCG/ACT Januvia 100 MG Januvia 100 MG No 1{table t} QD Januvia 100 MG Atorvastati n Calcium 40 MG Atorvastati n Calcium 40 MG No 1{table t} QD Atorvastat in Calcium 40 MG Glimepiride 1 MG Glimepiride 1 MG No 1{table t} QD Glimepirid e 1 MG Diclofenac Sodium 1 % Diclofenac Sodium 1 % No TID Diclofenac Sodium 1 % Tradjenta 5 MG Tradjenta 5 MG No 1{table t} QD Tradjenta 5 MG Flonase 50 MCG/ACT Flonase 50 MCG/ACT No 2{spray _in_eac h_nostr il} QD Flonase 50 MCG/ACT Famotidine 20 MG Famotidine 20 MG No 1{table t} Famotidine 20 MG EQ Allergy Relief (Cetirizine ) 10 MG EQ Allergy Relief (Cetirizine ) 10 MG No EQ Allergy Relief (Cetirizin e) 10 MG Albuterol Sulfate HFA 108 (90 Base) MCG/ACT Albuterol Sulfate HFA 108 (90 Base) MCG/ACT No 2{puffs _as_nee ded} QID Albuterol Sulfate HFA 108 (90 Base) MCG/ACT Pantoprazol e Sodium 40 MG Pantoprazol e Sodium 40 MG No 1{table t} QD Pantoprazo le Sodium 40 MG Lisinopril 5 MG Lisinopril 5 MG No 1{table t} QD Lisinopril 5 MG Diclofenac Sodium 1 % Diclofenac Sodium 1 % No TID Diclofenac Sodium 1 % Sucralfate 1 GM Sucralfate 1 GM No Sucralfate 1 GM EQ Allergy Relief (Cetirizine ) 10 MG EQ Allergy Relief (Cetirizine ) 10 MG No EQ Allergy Relief (Cetirizin e) 10 MG Famotidine 20 MG Famotidine 20 MG No 1{table t} Famotidine 20 MG Fluticasone Propionate 50 MCG/ACT Fluticasone Propionate 50 MCG/ACT No Fluticason e Propionate 50 MCG/ACT Carvedilol 6.25 MG Carvedilol 6.25 MG No 1{table t_with_ food} BID Carvedilol 6.25 MG Aspir-81 81 MG Aspir-81 81 MG No 1{table t} QD Aspir-81 81 MG Allopurinol 100 MG Allopurinol 100 MG No Allopurino l 100 MG Tradjenta 5 MG Tradjenta 5 MG No 1{table t} QD Tradjenta 5 MG Flonase 50 MCG/ACT Flonase 50 MCG/ACT No 2{spray _in_eac h_nostr il} QD Flonase 50 MCG/ACT prednisoLON E Acetate 1 % prednisoLON E Acetate 1 % No 1{drop_ into_af fected_ eye} BID prednisoLO NE Acetate 1 % Lantus SoloStar 100 UNIT/ML Lantus SoloStar 100 UNIT/ML No QD Lantus SoloStar 100 UNIT/ML Albuterol Sulfate HFA 108 (90 Base) MCG/ACT Albuterol Sulfate HFA 108 (90 Base) MCG/ACT No 2{puffs _as_nee ded} QID Albuterol Sulfate HFA 108 (90 Base) MCG/ACT Pantoprazol e Sodium 40 MG Pantoprazol e Sodium 40 MG No 1{table t} QD Pantoprazo le Sodium 40 MG Levothyroxi ne Sodium 50 MCG Levothyroxi ne Sodium 50 MCG No QD Levothyrox ine Sodium 50 MCG Lisinopril 5 MG Lisinopril 5 MG No 1{table t} QD Lisinopril 5 MG Nitroglycer in 0.4 MG Nitroglycer in 0.4 MG No Nitroglyce rin 0.4 MG Bactrim DS 800-160 MG Bactrim DS 800-160 MG No 1{table t} BID Bactrim DS 800-160 MG Januvia 100 MG Januvia 100 MG No 1{table t} QD Januvia 100 MG Chlorhexidi ne Gluconate 0.12 % Chlorhexidi ne Gluconate 0.12 % No Chlorhexid ine Gluconate 0.12 % Atorvastati n Calcium 40 MG Atorvastati n Calcium 40 MG No 1{table t} QD Atorvastat in Calcium 40 MG Glimepiride 1 MG Glimepiride 1 MG No 1{table t} QD Glimepirid e 1 MG Diclofenac Sodium 1 % Diclofenac Sodium 1 % No TID Diclofenac Sodium 1 % Sucralfate 1 GM Sucralfate 1 GM No Sucralfate 1 GM EQ Allergy Relief (Cetirizine ) 10 MG EQ Allergy Relief (Cetirizine ) 10 MG No EQ Allergy Relief (Cetirizin e) 10 MG Famotidine 20 MG Famotidine 20 MG No 1{table t} Famotidine 20 MG Fluticasone Propionate 50 MCG/ACT Fluticasone Propionate 50 MCG/ACT No Fluticason e Propionate 50 MCG/ACT Carvedilol 6.25 MG Carvedilol 6.25 MG No 1{table t_with_ food} BID Carvedilol 6.25 MG Aspir-81 81 MG Aspir-81 81 MG No 1{table t} QD Aspir-81 81 MG Allopurinol 100 MG Allopurinol 100 MG No Allopurino l 100 MG Tradjenta 5 MG Tradjenta 5 MG No 1{table t} QD Tradjenta 5 MG Flonase 50 MCG/ACT Flonase 50 MCG/ACT No 2{spray _in_eac h_nostr il} QD Flonase 50 MCG/ACT prednisoLON E Acetate 1 % prednisoLON E Acetate 1 % No 1{drop_ into_af fected_ eye} BID prednisoLO NE Acetate 1 % Lantus SoloStar 100 UNIT/ML Lantus SoloStar 100 UNIT/ML No QD Lantus SoloStar 100 UNIT/ML Albuterol Sulfate HFA 108 (90 Base) MCG/ACT Albuterol Sulfate HFA 108 (90 Base) MCG/ACT No 2{puffs _as_nee ded} QID Albuterol Sulfate HFA 108 (90 Base) MCG/ACT Pantoprazol e Sodium 40 MG Pantoprazol e Sodium 40 MG No 1{table t} QD Pantoprazo le Sodium 40 MG Levothyroxi ne Sodium 50 MCG Levothyroxi ne Sodium 50 MCG No QD Levothyrox ine Sodium 50 MCG Lisinopril 5 MG Lisinopril 5 MG No 1{table t} QD Lisinopril 5 MG Nitroglycer in 0.4 MG Nitroglycer in 0.4 MG No Nitroglyce rin 0.4 MG Bactrim DS 800-160 MG Bactrim DS 800-160 MG No 1{table t} BID Bactrim DS 800-160 MG Januvia 100 MG Januvia 100 MG No 1{table t} QD Januvia 100 MG Chlorhexidi ne Gluconate 0.12 % Chlorhexidi ne Gluconate 0.12 % No Chlorhexid ine Gluconate 0.12 % Atorvastati n Calcium 40 MG Atorvastati n Calcium 40 MG No 1{table t} QD Atorvastat in Calcium 40 MG Glimepiride 1 MG Glimepiride 1 MG No 1{table t} QD Glimepirid e 1 MG Allopurinol 100 MG Allopurinol 100 MG No Allopurino l 100 MG Tradjenta 5 MG Tradjenta 5 MG No 1{table t} QD Tradjenta 5 MG EQ Allergy Relief (Cetirizine ) 10 MG EQ Allergy Relief (Cetirizine ) 10 MG No EQ Allergy Relief (Cetirizin e) 10 MG Diclofenac Sodium 1 % Diclofenac Sodium 1 % No TID Diclofenac Sodium 1 % Sucralfate 1 GM Sucralfate 1 GM No Sucralfate 1 GM Fluticasone Propionate 50 MCG/ACT Fluticasone Propionate 50 MCG/ACT No Fluticason e Propionate 50 MCG/ACT Lantus SoloStar 100 UNIT/ML Lantus SoloStar 100 UNIT/ML No QD Lantus SoloStar 100 UNIT/ML Aspir-81 81 MG Aspir-81 81 MG No 1{table t} QD Aspir-81 81 MG Carvedilol 6.25 MG Carvedilol 6.25 MG No 1{table t_with_ food} BID Carvedilol 6.25 MG Glimepiride 1 MG Glimepiride 1 MG No Glimepirid e 1 MG Flonase 50 MCG/ACT Flonase 50 MCG/ACT No 2{spray _in_eac h_nostr il} QD Flonase 50 MCG/ACT prednisoLON E Acetate 1 % prednisoLON E Acetate 1 % No 1{drop_ into_af fected_ eye} BID prednisoLO NE Acetate 1 % Albuterol Sulfate HFA 108 (90 Base) MCG/ACT Albuterol Sulfate HFA 108 (90 Base) MCG/ACT No 2{puffs _as_nee ded} QID Albuterol Sulfate HFA 108 (90 Base) MCG/ACT Pantoprazol e Sodium 40 MG Pantoprazol e Sodium 40 MG No 1{table t} QD Pantoprazo le Sodium 40 MG Januvia 100 MG Januvia 100 MG No 1{table t} QD Januvia 100 MG Chlorhexidi ne Gluconate 0.12 % Chlorhexidi ne Gluconate 0.12 % No Chlorhexid ine Gluconate 0.12 % Lisinopril 5 MG Lisinopril 5 MG No 1{table t} QD Lisinopril 5 MG Bactrim DS 800-160 MG Bactrim DS 800-160 MG No 1{table t} BID Bactrim DS 800-160 MG Nitroglycer in 0.4 MG Nitroglycer in 0.4 MG No Nitroglyce rin 0.4 MG Famotidine 20 MG Famotidine 20 MG No 1{table t} Famotidine 20 MG Levothyroxi ne Sodium 50 MCG Levothyroxi ne Sodium 50 MCG No QD Levothyrox ine Sodium 50 MCG Atorvastati n Calcium 40 MG Atorvastati n Calcium 40 MG No 1{table t} QD Atorvastat in Calcium 40 MG Lantus SoloStar 100 UNIT/ML Lantus SoloStar 100 UNIT/ML No QD Lantus SoloStar 100 UNIT/ML Aspir-81 81 MG Aspir-81 81 MG No 1{table t} QD Aspir-81 81 MG Flonase 50 MCG/ACT Flonase 50 MCG/ACT No 2{spray _in_eac h_nostr il} QD Flonase 50 MCG/ACT Carvedilol 6.25 MG Carvedilol 6.25 MG No 1{table t_with_ food} BID Carvedilol 6.25 MG Glimepiride 1 MG Glimepiride 1 MG No Glimepirid e 1 MG EQ Allergy Relief (Cetirizine ) 10 MG EQ Allergy Relief (Cetirizine ) 10 MG No EQ Allergy Relief (Cetirizin e) 10 MG prednisoLON E Acetate 1 % prednisoLON E Acetate 1 % No 1{drop_ into_af fected_ eye} BID prednisoLO NE Acetate 1 % Pantoprazol e Sodium 40 MG Pantoprazol e Sodium 40 MG No 1{table t} QD Pantoprazo le Sodium 40 MG Albuterol Sulfate HFA 108 (90 Base) MCG/ACT Albuterol Sulfate HFA 108 (90 Base) MCG/ACT No 2{puffs _as_nee ded} QID Albuterol Sulfate HFA 108 (90 Base) MCG/ACT Bactrim DS 800-160 MG Bactrim DS 800-160 MG No 1{table t} BID Bactrim DS 800-160 MG Allopurinol 100 MG Allopurinol 100 MG No Allopurino l 100 MG Famotidine 20 MG Famotidine 20 MG No Famotidine 20 MG Januvia 100 MG Januvia 100 MG No 1{table t} QD Januvia 100 MG Sucralfate 1 GM Sucralfate 1 GM No Sucralfate 1 GM Chlorhexidi ne Gluconate 0.12 % Chlorhexidi ne Gluconate 0.12 % No Chlorhexid ine Gluconate 0.12 % Lisinopril 5 MG Lisinopril 5 MG No 1{table t} QD Lisinopril 5 MG Tradjenta 5 MG Tradjenta 5 MG No 1{table t} QD Tradjenta 5 MG Fluticasone Propionate 50 MCG/ACT Fluticasone Propionate 50 MCG/ACT No Fluticason e Propionate 50 MCG/ACT Nitroglycer in 0.4 MG Nitroglycer in 0.4 MG No Nitroglyce rin 0.4 MG Diclofenac Sodium 1 % Diclofenac Sodium 1 % No TID Diclofenac Sodium 1 % Levothyroxi ne Sodium 50 MCG Levothyroxi ne Sodium 50 MCG No QD Levothyrox ine Sodium 50 MCG Atorvastati n Calcium 40 MG Atorvastati n Calcium 40 MG No 1{table t} QD Atorvastat in Calcium 40 MG Lantus SoloStar 100 UNIT/ML Lantus SoloStar 100 UNIT/ML No QD Lantus SoloStar 100 UNIT/ML Aspir-81 81 MG Aspir-81 81 MG No 1{table t} QD Aspir-81 81 MG Flonase 50 MCG/ACT Flonase 50 MCG/ACT No 2{spray _in_eac h_nostr il} QD Flonase 50 MCG/ACT Carvedilol 6.25 MG Carvedilol 6.25 MG No 1{table t_with_ food} BID Carvedilol 6.25 MG Glimepiride 1 MG Glimepiride 1 MG No Glimepirid e 1 MG EQ Allergy Relief (Cetirizine ) 10 MG EQ Allergy Relief (Cetirizine ) 10 MG No EQ Allergy Relief (Cetirizin e) 10 MG prednisoLON E Acetate 1 % prednisoLON E Acetate 1 % No 1{drop_ into_af fected_ eye} BID prednisoLO NE Acetate 1 % Pantoprazol e Sodium 40 MG Pantoprazol e Sodium 40 MG No 1{table t} QD Pantoprazo le Sodium 40 MG Albuterol Sulfate HFA 108 (90 Base) MCG/ACT Albuterol Sulfate HFA 108 (90 Base) MCG/ACT No 2{puffs _as_nee ded} QID Albuterol Sulfate HFA 108 (90 Base) MCG/ACT Bactrim DS 800-160 MG Bactrim DS 800-160 MG No 1{table t} BID Bactrim DS 800-160 MG Allopurinol 100 MG Allopurinol 100 MG No Allopurino l 100 MG Famotidine 20 MG Famotidine 20 MG No Famotidine 20 MG Januvia 100 MG Januvia 100 MG No 1{table t} QD Januvia 100 MG Sucralfate 1 GM Sucralfate 1 GM No Sucralfate 1 GM Chlorhexidi ne Gluconate 0.12 % Chlorhexidi ne Gluconate 0.12 % No Chlorhexid ine Gluconate 0.12 % Lisinopril 5 MG Lisinopril 5 MG No 1{table t} QD Lisinopril 5 MG Tradjenta 5 MG Tradjenta 5 MG No 1{table t} QD Tradjenta 5 MG Fluticasone Propionate 50 MCG/ACT Fluticasone Propionate 50 MCG/ACT No Fluticason e Propionate 50 MCG/ACT Nitroglycer in 0.4 MG Nitroglycer in 0.4 MG No Nitroglyce rin 0.4 MG Diclofenac Sodium 1 % Diclofenac Sodium 1 % No TID Diclofenac Sodium 1 % Levothyroxi ne Sodium 50 MCG Levothyroxi ne Sodium 50 MCG No QD Levothyrox ine Sodium 50 MCG Atorvastati n Calcium 40 MG Atorvastati n Calcium 40 MG No 1{table t} QD Atorvastat in Calcium 40 MG Lantus SoloStar 100 UNIT/ML Lantus SoloStar 100 UNIT/ML No QD Lantus SoloStar 100 UNIT/ML Flonase 50 MCG/ACT Flonase 50 MCG/ACT No 2{spray _in_eac h_nostr il} QD Flonase 50 MCG/ACT Carvedilol 6.25 MG Carvedilol 6.25 MG No 1{table t_with_ food} BID Carvedilol 6.25 MG Glimepiride 1 MG Glimepiride 1 MG No Glimepirid e 1 MG Cetirizine HCl 10 MG Cetirizine HCl 10 MG No 1{table t} Cetirizine HCl 10 MG prednisoLON E Acetate 1 % prednisoLON E Acetate 1 % No 1{drop_ into_af fected_ eye} BID prednisoLO NE Acetate 1 % Pantoprazol e Sodium 40 MG Pantoprazol e Sodium 40 MG No 1{table t} QD Pantoprazo le Sodium 40 MG Albuterol Sulfate HFA 108 (90 Base) MCG/ACT Albuterol Sulfate HFA 108 (90 Base) MCG/ACT No 2{puffs _as_nee ded} QID Albuterol Sulfate HFA 108 (90 Base) MCG/ACT Bactrim DS 800-160 MG Bactrim DS 800-160 MG No 1{table t} BID Bactrim DS 800-160 MG Allopurinol 100 MG Allopurinol 100 MG No Allopurino l 100 MG Famotidine 20 MG Famotidine 20 MG No Famotidine 20 MG Januvia 100 MG Januvia 100 MG No 1{table t} QD Januvia 100 MG Sucralfate 1 GM Sucralfate 1 GM No Sucralfate 1 GM Chlorhexidi ne Gluconate 0.12 % Chlorhexidi ne Gluconate 0.12 % No Chlorhexid ine Gluconate 0.12 % Lisinopril 5 MG Lisinopril 5 MG No 1{table t} QD Lisinopril 5 MG Tradjenta 5 MG Tradjenta 5 MG No 1{table t} QD Tradjenta 5 MG Fluticasone Propionate 50 MCG/ACT Fluticasone Propionate 50 MCG/ACT No Fluticason e Propionate 50 MCG/ACT Nitroglycer in 0.4 MG Nitroglycer in 0.4 MG No Nitroglyce rin 0.4 MG Diclofenac Sodium 1 % Diclofenac Sodium 1 % No TID Diclofenac Sodium 1 % Levothyroxi ne Sodium 50 MCG Levothyroxi ne Sodium 50 MCG No QD Levothyrox ine Sodium 50 MCG Atorvastati n Calcium 40 MG Atorvastati n Calcium 40 MG No 1{table t} QD Atorvastat in Calcium 40 MG Cetirizine HCl 10 MG Cetirizine HCl 10 MG No 1{table t} Cetirizine HCl 10 MG Levothyroxi ne Sodium 50 MCG Levothyroxi ne Sodium 50 MCG No QD Levothyrox ine Sodium 50 MCG Albuterol Sulfate HFA 108 (90 Base) MCG/ACT Albuterol Sulfate HFA 108 (90 Base) MCG/ACT No 2{puffs _as_nee ded} QID Albuterol Sulfate HFA 108 (90 Base) MCG/ACT Glimepiride 1 MG Glimepiride 1 MG No 1{table t} Glimepirid e 1 MG Metoprolol Tartrate 25 mg Metoprolol Tartrate 25 mg No BID Metoprolol Tartrate 25 mg Sucralfate 1 GM Sucralfate 1 GM No 1{table t_as_ne eded} Sucralfate 1 GM Nitroglycer in 0.4 MG Nitroglycer in 0.4 MG No Nitroglyce rin 0.4 MG Lantus SoloStar 100 UNIT/ML Lantus SoloStar 100 UNIT/ML No QD Lantus SoloStar 100 UNIT/ML Chlorhexidi ne Gluconate 0.12 % Chlorhexidi ne Gluconate 0.12 % No Chlorhexid ine Gluconate 0.12 % Lisinopril 5 MG Lisinopril 5 MG No 1{table t} QD Lisinopril 5 MG Famotidine 20 MG Famotidine 20 MG No 1{table t} Famotidine 20 MG Flonase 50 MCG/ACT Flonase 50 MCG/ACT No 2{spray _in_eac h_nostr il} QD Flonase 50 MCG/ACT Lovastatin 20 mg Lovastatin 20 mg No QD Lovastatin 20 mg Tradjenta 5 MG Tradjenta 5 MG No 1{table t} QD Tradjenta 5 MG Tradjenta 5 MG Tradjenta 5 MG No 1{table t} QD Tradjenta 5 MG Blood Glucose Test Strip Blood Glucose Test Strip No Blood Glucose Test Strip EQ Allergy Relief (Cetirizine ) 10 MG EQ Allergy Relief (Cetirizine ) 10 MG No EQ Allergy Relief (Cetirizin e) 10 MG Chlorhexidi ne Gluconate 0.12 % Chlorhexidi ne Gluconate 0.12 % No Chlorhexid ine Gluconate 0.12 % Lisinopril 5 MG Lisinopril 5 MG No 1{table t} QD Lisinopril 5 MG Levothyroxi ne Sodium 50 MCG Levothyroxi ne Sodium 50 MCG No QD Levothyrox ine Sodium 50 MCG Famotidine 20 MG Famotidine 20 MG No 1{table t} Famotidine 20 MG Nitroglycer in 0.4 MG Nitroglycer in 0.4 MG No Nitroglyce rin 0.4 MG Lovastatin 20 mg Lovastatin 20 mg No QD Lovastatin 20 mg Albuterol Sulfate HFA 108 (90 Base) MCG/ACT Albuterol Sulfate HFA 108 (90 Base) MCG/ACT No 2{puffs _as_nee ded} QID Albuterol Sulfate HFA 108 (90 Base) MCG/ACT Fluticasone Propionate 50 MCG/ACT Fluticasone Propionate 50 MCG/ACT No Fluticason e Propionate 50 MCG/ACT Glimepiride 1 MG Glimepiride 1 MG No 1{table t} Glimepirid e 1 MG Lantus SoloStar 100 UNIT/ML Lantus SoloStar 100 UNIT/ML No QD Lantus SoloStar 100 UNIT/ML Metoprolol Tartrate 25 mg Metoprolol Tartrate 25 mg No BID Metoprolol Tartrate 25 mg Allopurinol 100 MG Allopurinol 100 MG 05-07 00:00 :00 No 1{table t} QD Allopurino l 100 MG Allopurinol 100 MG Allopurinol 100 MG 05-07 00:00 :00 No 1{table t} QD Allopurino l 100 MG Allopurinol 100 MG Allopurinol 100 MG 05-07 00:00 :00 No 1{table t} QD Allopurino l 100 MG Allopurinol 100 MG Allopurinol 100 MG 05-07 00:00 :00 No 1{table t} QD Allopurino l 100 MG Allopurinol 100 MG Allopurinol 100 MG 05-07 00:00 :00 No 1{table t} QD Allopurino l 100 MG Immunizations Ordered Immunization Name Filled Immunization Name Date Status Comments Source FLUZONE HIGH DOSE OVER 65 FLUZONE HIGH DOSE OVER 65 2021-06-02 15:49:00 Completed [facility] FLUZONE HIGH DOSE OVER 65 FLUZONE HIGH DOSE OVER 65 2021-06-02 15:49:00 Completed [facility] FLUZONE HIGH DOSE OVER 65 FLUZONE HIGH DOSE OVER 65 2021-06-02 15:49:00 Completed [facility] FLUZONE HIGH DOSE OVER 65 FLUZONE HIGH DOSE OVER 65 2021-06-02 15:49:00 Completed [facility] FLUZONE HIGH DOSE OVER 65 FLUZONE HIGH DOSE OVER 65 2021-06-02 15:49:00 Completed [facility] FLUZONE HIGH DOSE OVER 65 FLUZONE HIGH DOSE OVER 65 2021-06-02 15:49:00 Completed [facility] FLUZONE HIGH DOSE OVER 65 FLUZONE HIGH DOSE OVER 65 2021-06-02 15:49:00 Completed [facility] FLUZONE HIGH DOSE OVER 65 FLUZONE HIGH DOSE OVER 65 2021-06-02 15:49:00 Completed [facility] FLUZONE HIGH DOSE OVER 65 FLUZONE HIGH DOSE OVER 65 2021-06-02 15:49:00 Completed [facility] FLUZONE HIGH DOSE OVER 65 FLUZONE HIGH DOSE OVER 65 2021-06-02 15:49:00 Completed [facility] FLUZONE HIGH DOSE OVER 65 FLUZONE HIGH DOSE OVER 65 2021-06-02 15:49:00 Completed [facility] FLUZONE HIGH DOSE OVER 65 FLUZONE HIGH DOSE OVER 65 2021-06-02 15:49:00 Completed [facility] FLUZONE HIGH DOSE OVER 65 FLUZONE HIGH DOSE OVER 65 2021-06-02 15:49:00 Completed [facility] Moderna COVID-19 Vaccine Moderna COVID-19 Vaccine 2021-01-18 15:42:00 Completed [facility] Moderna COVID-19 Vaccine Moderna COVID-19 Vaccine 2021-01-18 15:42:00 Completed [facility] Moderna COVID-19 Vaccine Moderna COVID-19 Vaccine 2021-01-18 15:42:00 Completed [facility] Moderna COVID-19 Vaccine Moderna COVID-19 Vaccine 2021-01-18 15:42:00 Completed [facility] Moderna COVID-19 Vaccine Moderna COVID-19 Vaccine 2021-01-18 15:42:00 Completed [facility] Moderna COVID-19 Vaccine Moderna COVID-19 Vaccine 2021-01-18 15:42:00 Completed [facility] Moderna COVID-19 Vaccine Moderna COVID-19 Vaccine 2021-01-18 15:42:00 Completed [facility] Moderna COVID-19 Vaccine Moderna COVID-19 Vaccine 2021-01-18 15:42:00 Completed [facility] Moderna COVID-19 Vaccine Moderna COVID-19 Vaccine 2021-01-18 15:42:00 Completed [facility] Moderna COVID-19 Vaccine Moderna COVID-19 Vaccine 2021-01-18 15:42:00 Completed [facility] Moderna COVID-19 Vaccine Moderna COVID-19 Vaccine 2021-01-18 15:42:00 Completed [facility] Moderna COVID-19 Vaccine Moderna COVID-19 Vaccine 2021-01-18 15:42:00 Completed [facility] Moderna COVID-19 Vaccine Moderna COVID-19 Vaccine 2020-12-30 08:59:00 Completed [facility] Moderna COVID-19 Vaccine Moderna COVID-19 Vaccine 2020-12-30 08:59:00 Completed [facility] Moderna COVID-19 Vaccine Moderna COVID-19 Vaccine 2020-12-30 08:59:00 Completed [facility] Moderna COVID-19 Vaccine Moderna COVID-19 Vaccine 2020-12-30 08:59:00 Completed [facility] Moderna COVID-19 Vaccine Moderna COVID-19 Vaccine 2020-12-30 08:59:00 Completed [facility] Moderna COVID-19 Vaccine Moderna COVID-19 Vaccine 2020-12-30 08:59:00 Completed [facility] Moderna COVID-19 Vaccine Moderna COVID-19 Vaccine 2020-12-30 08:59:00 Completed [facility] Moderna COVID-19 Vaccine Moderna COVID-19 Vaccine 2020-12-30 08:59:00 Completed [facility] Moderna COVID-19 Vaccine Moderna COVID-19 Vaccine 2020-12-30 08:59:00 Completed [facility] Moderna COVID-19 Vaccine Moderna COVID-19 Vaccine 2020-12-30 08:59:00 Completed [facility] Moderna COVID-19 Vaccine Moderna COVID-19 Vaccine 2020-12-30 08:59:00 Completed [facility] Moderna COVID-19 Vaccine Moderna COVID-19 Vaccine 2020-12-30 08:59:00 Completed [facility] Moderna COVID-19 Vaccine Moderna COVID-19 Vaccine 2020-12-30 08:59:00 Completed [facility] Moderna COVID-19 Vaccine Moderna COVID-19 Vaccine 2020-12-30 08:59:00 Completed [facility] Moderna COVID-19 Vaccine Moderna COVID-19 Vaccine 2020-12-28 15:42:00 Completed [facility] Moderna COVID-19 Vaccine Moderna COVID-19 Vaccine 2020-12-28 15:42:00 Completed [facility] Influenza Virus Vaccine Quad IM 3+ YRS 2016-05-17 00:00:00 Completed [facility] Influenza Virus Vaccine Quad IM 3+ YRS 2016-05-17 00:00:00 Completed [facility] Influenza Virus Vaccine Quad IM 3+ YRS 2016-05-17 00:00:00 Completed [facility] Influenza Virus Vaccine Quad IM 3+ YRS 2016-05-17 00:00:00 Completed [facility] Influenza Virus Vaccine Quad IM 3+ YRS 2016-05-17 00:00:00 Completed [facility] Influenza Virus Vaccine Quad IM 3+ YRS 2016-05-17 00:00:00 Completed [facility] Influenza Virus Vaccine Quad IM 3+ YRS 2016-05-17 00:00:00 Completed [facility] Influenza Virus Vaccine Quad IM 3+ YRS 2016-05-17 00:00:00 Completed [facility] Influenza Virus Vaccine Quad IM 3+ YRS 2016-05-17 00:00:00 Completed [facility] Influenza Virus Vaccine Quad IM 3+ YRS 2016-05-17 00:00:00 Completed [facility] Influenza Virus Vaccine Quad IM 3+ YRS 2016-05-17 00:00:00 Completed [facility] Influenza Virus Vaccine Quad IM 3+ YRS 2016-05-17 00:00:00 Completed [facility] Influenza Virus Vaccine Quad IM 3+ YRS 2015-05-11 00:00:00 Completed [facility] Pneumococcal Polysaccharide, PPSV23 (PNEUMOVAX) 2015-05-11 00:00:00 Completed [facility] Influenza Virus Vaccine Quad IM 3+ YRS 2015-05-11 00:00:00 Completed [facility] Pneumococcal Polysaccharide, PPSV23 (PNEUMOVAX) 2015-05-11 00:00:00 Completed [facility] Influenza Virus Vaccine Quad IM 3+ YRS 2015-05-11 00:00:00 Completed [facility] Pneumococcal Polysaccharide, PPSV23 (PNEUMOVAX) 2015-05-11 00:00:00 Completed [facility] Influenza Virus Vaccine Quad IM 3+ YRS 2015-05-11 00:00:00 Completed [facility] Pneumococcal Polysaccharide, PPSV23 (PNEUMOVAX) 2015-05-11 00:00:00 Completed [facility] Influenza Virus Vaccine Quad IM 3+ YRS 2015-05-11 00:00:00 Completed [facility] Pneumococcal Polysaccharide, PPSV23 (PNEUMOVAX) 2015-05-11 00:00:00 Completed [facility] Influenza Virus Vaccine Quad IM 3+ YRS 2015-05-11 00:00:00 Completed [facility] Pneumococcal Polysaccharide, PPSV23 (PNEUMOVAX) 2015-05-11 00:00:00 Completed [facility] Influenza Virus Vaccine Quad IM 3+ YRS 2015-05-11 00:00:00 Completed [facility] Pneumococcal Polysaccharide, PPSV23 (PNEUMOVAX) 2015-05-11 00:00:00 Completed [facility] Influenza Virus Vaccine Quad IM 3+ YRS 2015-05-11 00:00:00 Completed [facility] Pneumococcal Polysaccharide, PPSV23 (PNEUMOVAX) 2015-05-11 00:00:00 Completed [facility] Influenza Virus Vaccine Quad IM 3+ YRS 2015-05-11 00:00:00 Completed [facility] Pneumococcal Polysaccharide, PPSV23 (PNEUMOVAX) 2015-05-11 00:00:00 Completed [facility] Influenza Virus Vaccine Quad IM 3+ YRS 2015-05-11 00:00:00 Completed [facility] Pneumococcal Polysaccharide, PPSV23 (PNEUMOVAX) 2015-05-11 00:00:00 Completed [facility] Influenza Virus Vaccine Quad IM 3+ YRS 2015-05-11 00:00:00 Completed [facility] Pneumococcal Polysaccharide, PPSV23 (PNEUMOVAX) 2015-05-11 00:00:00 Completed [facility] Influenza Virus Vaccine Quad IM 3+ YRS 2015-05-11 00:00:00 Completed [facility] Pneumococcal Polysaccharide, PPSV23 (PNEUMOVAX) 2015-05-11 00:00:00 Completed [facility] Zoster(Zostavax)( ingles) 2015-02-11 00:00:00 Completed [facility] Zoster(Zostavax)( ingles) 2015-02-11 00:00:00 Completed [facility] Zoster(Zostavax)( ingles) 2015-02-11 00:00:00 Completed [facility] Zoster(Zostavax)( ingles) 2015-02-11 00:00:00 Completed [facility] Zoster(Zostavax)([facility]) 2015-02-11 00:00:00 Completed [facility] Zoster(Zostavax)([facility]) 2015-02-11 00:00:00 Completed [facility] Zoster(Zostavax)([facility]) 2015-02-11 00:00:00 Completed [facility] Zoster(Zostavax)([facility]) 2015-02-11 00:00:00 Completed [facility] Zoster(Zostavax)([facility]) 2015-02-11 00:00:00 Completed [facility] Zoster(Zostavax)([facility]) 2015-02-11 00:00:00 Completed [facility] Zoster(Zostavax)([facility]) 2015-02-11 00:00:00 Completed [facility] Zoster(Zostavax)([facility]) 2015-02-11 00:00:00 Completed [facility] Moderna COVID-19 Vaccine Moderna COVID-19 Vaccine Unknown Completed [facility] FLUZONE HIGH DOSE OVER 65 FLUZONE HIGH DOSE OVER 65 Unknown Completed [facility] Vital Signs Vital Name Observation Time Observation Value Comments S ource Systolic blood pressure 2022-04-09 18:00:00 140 mm[Hg] [facility] Diastolic blood pressure 2022-04-09 18:00:00 82 mm[Hg] [facility] Heart rate 2022-04-09 18:00:00 63 /min [facility] Respiratory rate 2022-04-09 18:00:00 18 /min [facility] Oxygen saturation in Arterial blood by Pulse oximetry 2022-04-09 18:00:00 98 /min [facility] Body temperature 2022-04-09 17:41:00 36.56 Seda [facility] Body weight 2022-04-09 17:41:00 78.472 kg [facility] BMI 2022-04-09 17:41:00 31.63 kg/m2 [facility] height 2022-03-27 09:40:00 63.50 [in_i] [facility] weight 2022-03-27 09:40:00 175.0 [lb_av] Co [facility] temperature 2022-03-27 09:40:00 97.3 [degF] Com [facility] bmi 2022-03-27 09:40:00 30.51 kg/m2 [facility] oximetry 2022-03-27 09:40:00 98 % [facility] respiratory rate 2022-03-27 09:40:00 16 /min [facility] blood pressure systolic 2022-03-27 09:40:00 132 mm[Hg] [facility] blood pressure diastolic 2022-03-27 09:40:00 68 mm[Hg] [facility] height 2022-03-14 10:00:00 64.00 [in_i] Com [facility] weight 2022-03-14 10:00:00 174.4 [lb_av] Co [facility] temperature 2022-03-14 10:00:00 97.2 [degF] Com [facility] bmi 2022-03-14 10:00:00 29.93 kg/m2 [facility] oximetry 2022-03-14 10:00:00 96 % [facility] respiratory rate 2022-03-14 10:00:00 16 /min [facility] blood pressure systolic 2022-03-14 10:00:00 136 mm[Hg] [facility] blood pressure diastolic 2022-03-14 10:00:00 79 mm[Hg] [facility] Respiratory rate 2022-03-01 14:42:00 18 /min [facility] Heart rate 2022-03-01 14:41:00 70 /min [facility] Oxygen saturation in Arterial blood by Pulse oximetry 2022-03-01 14:41:00 99 /min [facility] Systolic blood pressure 2022-03-01 14:40:00 152 mm[Hg] [facility] Diastolic blood pressure 2022-03-01 14:40:00 80 mm[Hg] [facility] Body temperature 2022-03-01 14:25:00 36.83 Seda [facility] Body height 2022-02-22 18:55:00 157.5 cm [facility] Body weight 2022-02-22 18:55:00 78.9 kg [facility] BMI 2022-02-22 18:55:00 31.81 kg/m2 [facility] Systolic blood pressure 2022-03-01 12:51:00 161 mm[Hg] [facility] Diastolic blood pressure 2022-03-01 12:51:00 93 mm[Hg] [facility] Heart rate 2022-03-01 12:51:00 75 /min [facility] Body temperature 2022-03-01 12:51:00 36.33 Seda [facility] Respiratory rate 2022-03-01 12:51:00 14 /min [facility] Oxygen saturation in Arterial blood by Pulse oximetry 2022-03-01 12:51:00 98 /min [facility] Body height 2022-02-22 18:55:00 157.5 cm [facility] Body weight 2022-02-22 18:55:00 78.9 kg [facility] BMI 2022-02-22 18:55:00 31.81 kg/m2 [facility] Systolic blood pressure 2022-02-15 14:49:00 164 mm[Hg] [facility] Diastolic blood pressure 2022-02-15 14:49:00 89 mm[Hg] [facility] Heart rate 2022-02-15 14:49:00 70 /min [facility] Respiratory rate 2022-02-15 14:49:00 10 /min [facility] Oxygen saturation in Arterial blood by Pulse oximetry 2022-02-15 14:49:00 99 /min [facility] Body temperature 2022-02-15 12:46:00 36.56 Seda [facility] Body height 2022-02-03 15:18:00 157.5 cm [facility] Body weight 2022-02-03 15:18:00 78.9 kg [facility] BMI 2022-02-03 15:18:00 31.81 kg/m2 [facility] Systolic blood pressure 2022-02-15 12:53:00 160 mm[Hg] [facility] Diastolic blood pressure 2022-02-15 12:53:00 89 mm[Hg] [facility] Heart rate 2022-02-15 12:46:00 80 /min [facility] Body temperature 2022-02-15 12:46:00 36.56 Seda [facility] Respiratory rate 2022-02-15 12:46:00 15 /min [facility] Oxygen saturation in Arterial blood by Pulse oximetry 2022-02-15 12:46:00 99 /min [facility] Body height 2022-02-03 15:18:00 157.5 cm [facility] Body weight 2022-02-03 15:18:00 78.9 kg [facility] BMI 2022-02-03 15:18:00 31.81 kg/m2 [facility] height 2022-01-02 09:00:00 64.00 [in_i] [facility] weight 2022-01-02 09:00:00 172.2 [lb_av] [facility] temperature 2022-01-02 09:00:00 97.2 [degF] [facility] bmi 2022-01-02 09:00:00 29.55 kg/m2 [facility] oximetry 2022-01-02 09:00:00 98 % [facility] respiratory rate 2022-01-02 09:00:00 16 /min [facility] blood pressure systolic 2022-01-02 09:00:00 117 mm[Hg] [facility] blood pressure diastolic 2022-01-02 09:00:00 72 mm[Hg] [facility] height 2021-11-08 13:00:00 64.00 [in_i] Com [facility] weight 2021-11-08 13:00:00 170.6 [lb_av] [facility] temperature 2021-11-08 13:00:00 97.7 [degF] Com [facility] bmi 2021-11-08 13:00:00 29.28 kg/m2 [facility] oximetry 2021-11-08 13:00:00 98 % [facility] respiratory rate 2021-11-08 13:00:00 18 /min [facility] blood pressure systolic 2021-11-08 13:00:00 139 mm[Hg] [facility] blood pressure diastolic 2021-11-08 13:00:00 80 mm[Hg] [facility] height 2021-10-07 14:20:00 64.00 [in_i] Com [facility] weight 2021-10-07 14:20:00 170.2 [lb_av] [facility] temperature 2021-10-07 14:20:00 97.3 [degF] Com [facility] bmi 2021-10-07 14:20:00 29.21 kg/m2 [facility] oximetry 2021-10-07 14:20:00 100 % [facility] respiratory rate 2021-10-07 14:20:00 16 /min [facility] blood pressure systolic 2021-10-07 14:20:00 121 mm[Hg] [facility] blood pressure diastolic 2021-10-07 14:20:00 86 mm[Hg] [facility] height 2021-10-07 14:00:00 64.00 [in_i] Com [facility] weight 2021-10-07 14:00:00 170.2 [lb_av] Co [facility] temperature 2021-10-07 14:00:00 97.3 [degF] Com [facility] bmi 2021-10-07 14:00:00 29.21 kg/m2 [facility] oximetry 2021-10-07 14:00:00 100 % [facility] respiratory rate 2021-10-07 14:00:00 16 /min [facility] blood pressure systolic 2021-10-07 14:00:00 121 mm[Hg] [facility] blood pressure diastolic 2021-10-07 14:00:00 86 mm[Hg] [facility] height 2021-07-14 13:00:00 64.00 [in_i] Com [facility] weight 2021-07-14 13:00:00 170.4 [lb_av] Co [facility] temperature 2021-07-14 13:00:00 98.0 [degF] Com [facility] bmi 2021-07-14 13:00:00 29.25 kg/m2 [facility] oximetry 2021-07-14 13:00:00 97 % [facility] respiratory rate 2021-07-14 13:00:00 17 /min [facility] blood pressure systolic 2021-07-14 13:00:00 139 mm[Hg] [facility] blood pressure diastolic 2021-07-14 13:00:00 79 mm[Hg] [facility] height 2021-06-06 16:20:00 64.00 [in_i] Com [facility] weight 2021-06-06 16:20:00 173.0 [lb_av] [facility] temperature 2021-06-06 16:20:00 97.2 [degF] Com [facility] bmi 2021-06-06 16:20:00 29.69 kg/m2 [facility] oximetry 2021-06-06 16:20:00 97 % [facility] respiratory rate 2021-06-06 16:20:00 18 /min [facility] blood pressure systolic 2021-06-06 16:20:00 120 mm[Hg] [facility] blood pressure diastolic 2021-06-06 16:20:00 85 mm[Hg] [facility] height 2021-06-02 15:40:00 64.00 [in_i] Com [facility] weight 2021-06-02 15:40:00 170.8 [lb_av] Co [facility] temperature 2021-06-02 15:40:00 97.1 [degF] Com [facility] bmi 2021-06-02 15:40:00 29.31 kg/m2 [facility] oximetry 2021-06-02 15:40:00 96 % [facility] respiratory rate 2021-06-02 15:40:00 18 /min [facility] blood pressure systolic 2021-06-02 15:40:00 124 mm[Hg] [facility] blood pressure diastolic 2021-06-02 15:40:00 80 mm[Hg] [facility] height 2021-04-13 11:00:00 64.00 [in_i] Com [facility] weight 2021-04-13 11:00:00 174 [lb_av] [facility] bmi 2021-04-13 11:00:00 29.86 kg/m2 [facility] Procedures Procedure Date / Time Performed Performing Clinician Source CT TRAUMA HEAD WO CONTRAST 2022-04-09 18:18:44 Loyd Scott [facility] CT TRAUMA CERVICAL SPINE WO CONTRAST 2022-04-09 18:18:44 Loyd Scott [facility] CONSENT/REFUSAL FOR DIAGNOSI S AND TREATMENT 2022-04-09 17:37:03 Doctor Unassigned, [place] [facility] PHACOEMULSIFICATION OF CATARACT WITH INTRAOCULAR LENS IMPLANT 2022-03-01 13:48:00 Nicolas Campa [facility] POCT GLUCOSE (AUTOMATED) 2022-03-01 12:47:00 Nicolas Campa [facility] POCT GLUCOSE (AUTOMATED) 2022-03-01 12:47:00 Nicolas Campa [facility] PATIENT QUESTIONNAIRE 2022-03-01 05:01:00 Doctor Unassigned, [place] [facility] DAY SURGERY - ADC 2022-03-01 05:01:00 Doctor Unassigned, [place] [facility] CONSENT/REFUSAL FOR DIAGNOSI S AND TREATMENT 2022-02-27 20:46:38 Doctor Unassigned, [facility] CONSENT/REFUSAL FOR DIAGNOSI S AND TREATMENT 2022-02-27 20:46:38 Doctor Unassigned, [facility] ASSIGNMENT OF BENEFITS 2022-02-27 20:46:13 Doctor Unassigned, [facility] ASSIGNMENT OF BENEFITS 2022-02-27 20:46:13 Doctor Unassigned, [facility] PHACOEMULSIFICATION OF CATARACT WITH INTRAOCULAR LENS IMPLANT 2022-02-15 13:55:00 Nicolas Campa [facility] POCT GLUCOSE (AUTOMATED) 2022-02-15 12:58:00 Nicolas Campa [facility] POCT GLUCOSE (AUTOMATED) 2022-02-15 12:58:00 Nicolas Campa [facility] ASSIGNMENT OF BENEFITS 2022-02-11 13:57:55 Doctor Unassigned, [facility] CBC WITH DIFF 2022-02-08 18:45:00 Nicolas Campa [facility] Encounters Start Date/Time End Date/Time Encounter Type Admission Type Attending [facility] Care Department Encounter ID Source 2023-11-13 15:47:00 Outpatient Shashank CALIXTO STLMLC STLMLC [id number] [facility] 2022-07-28 08:19:00 Outpatient Shashank Calixto STLMLC STLMLC [id number] [facility] 2022-06-21 10:56:01 Outpatient Shashank Calixto STLMLC STLMLC [id number] [facility] 2022-06-12 10:53:02 Outpatient CalixtoShashank cade STLMLC STLMLC [id number] [facility] 2022-03-23 09:00:00 Outpatient Shashank Calixto STLMLC STLMLC [id number] [facility] 2022-01-25 09:23:50 Outpatient NICOLAS FARIAS [facility] [id number] [facility] 2021-12-29 07:59:00 Outpatient Shashank Calixto STLMLC STLMLC [id number] [facility] 2021-12-08 11:16:00 Outpatient Shashank Calixto STLMLC STLMLC [id number] [facility] 2021-11-07 11:56:01 Outpatient Shashank Calixto STLMLC STLMLC [id number] [facility] 2021-10-25 15:44:01 Outpatient Shashank Calixto STLMLC STLMLC [id number] [facility] 2021-10-06 10:20:01 Outpatient CalixtoShashank cade STLMLC STLMLC [id number] [facility] 2021-09-07 12:58:36 Outpatient Calixto, Na STLMLC STLMLC [id number] [facility] 2021-09-07 12:50:14 Outpatient Calixto, Na STLMLC STLMLC [id number] [facility] 2021-09-07 12:45:37 Outpatient Shashank Calixto STLMLC STLMLC [id number] [facility] 2021-09-07 12:36:24 Outpatient Shashank Calixto STLMLC STLMLC [id number] [facility] 2021-09-07 12:30:55 Outpatient Shashank Calixto STLMLC STLMLC [id number] [facility] 2021-09-07 12:16:19 Outpatient Shashank Calixto STLMLC STLMLC [id number] [facility] 2021-09-07 12:11:08 Outpatient Toño Álvarez STLMLC STLMLC [id number] [facility] 2021-09-07 12:09:44 Outpatient Toño Álvarez STLMLC STLMLC [id number] [facility] 2021-09-07 12:04:25 Outpatient Toño Álvarez STLMLC STLMLC [id number] [facility] 2021-09-07 12:03:00 Outpatient Toño Álvarez STLMLC STLMLC [id number] [facility] 2021-09-07 11:59:43 Outpatient STLMLC STLMLC [id number] [facility] 2021-09-07 11:25:13 Outpatient Hollie Cheung STLMLC STLMLC [id number] [facility] 2021-09-07 11:02:15 Outpatient Hollie Cheung STLMLC STLMLC [id number] [facility] 2021-09-07 11:01:49 Outpatient Hollie Cheung STLMLC STLMLC [id number] [facility] 2023-11-13 00:00:00 2023-11-13 00:00:00 (TEL) STLMLC STLMLC [id number] [facility] 2023-03-06 14:09:00 2023-03-06 18:00:00 Emergency Zia Garrison [facility] CAROLYN [id number] [facility] 2022-07-24 00:00:00 2022-07-24 00:00:00 (TEL) STLMLC STLMLC [id number] [facility] 2022-07-19 14:04:03 2022-07-19 14:04:03 Outpatient [facility] [id number] Damion Mcgrath 2022-07-12 06:31:00 2022-07-13 10:41:00 Inpatient Caitlin Esquivel [facility] MEDI.01 [id number] [facility] 2022-07-04 00:00:00 2022-07-04 00:00:00 (TEL) STLMLC STLMLC [id number] [facility] 2022-05-30 00:00:00 2022-05-30 00:00:00 (TEL) STLMLC STLMLC [id number] [facility] 2022-05-26 00:00:00 2022-05-26 00:00:00 (TEL) STLMLC STLMLC [id number] [facility] 2022-04-10 00:00:00 2022-04-10 00:00:00 (TEL) STLMLC STLMLC [id number] [facility] 2022-04-09 12:43:00 2022-04-09 14:01:00 Emergency X LOYD SCOTT [facility] ERT [id number] [facility] 2022-04-09 12:43:00 2022-04-09 14:01:00 Emergency Loyd Scott [facility] .2.840.114 350.1.13.10 4.2.7.2.686 [id number] [facility] 2022-04-09 00:00:00 2022-04-09 00:00:00 Orders Only Doctor Unassigned, [place] [facility] 1.2.840.114 350.1.13.10 4.2.7.2.686 [id number] [facility] 2022-03-27 00:00:00 2022-03-27 00:00:00 OFFICE VISIT ESTAB PT LEVEL 4 STLMLC STLMLC [id number] [facility] 2022-03-20 00:00:00 2022-03-20 00:00:00 (TEL) STLMLC STLMLC [id number] [facility] 2022-03-14 23:14:00 2022 14:48:00 Inpatient EM Iloaclaraa, Nkoli HCAPM INTE.02 [id number] [facility] 2022-03-14 23:14:00 2022 14:48:00 Inpatient EM Iloacornelius, Nkoli HCAPM INTE.02 [id number] [facility] 2022-03-15 06:33:00 2022-03-15 06:33:00 Outpatient Ilcammy Yeisonoli HCACL LABO [id number] [facility] 2022-03-14 00:00:00 2022-03-14 00:00:00 OFFICE VISIT ESTAB PT LEVEL 4 STLMLC STLMLC [id number] [facility] 2022-03-01 07:39:00 2022-03-01 09:47:00 Outpatient R NICOLAS CAMPA [facility] OPH [id number] [facility] 2022-03-01 07:39:00 2022-03-01 09:47:00 Hospital Encounter Nicolas Campa [facility] [place] 1.2.840.114 350.1.13.10 4.2.7.2.686 [id number] [facility] 2022-03-01 08:25:00 2022-03-01 08:59:00 Surgery Nicolas Campa [facility] 1.2.840.114 350.1.13.10 4.2.7.2.686 [id number] [facility] 2022-02-27 15:00:00 2022-02-27 15:15:00 Laboratory Only Only, Adc Test Nicolas Campa [facility] 1.2840.114 350.1.13.10 4.2.7.2.686 [id number] [facility] 2022-02-27 15:00:00 2022-02-27 15:00:00 Outpatient R NICOLAS CAMPA [facility] [id number] [facility] 2022-02-15 07:36:00 2022-02-15 09:56:00 Outpatient R NICOLAS CAMPA [facility] OPH [id number] [facility] 2022-02-15 07:36:00 2022-02-15 09:56:00 Hospital Encounter LokeshNicolas [facility] [place] 1.2840.114 350.1.13.10 4.2.7.2.686 [id number] [facility] 2022-02-15 08:25:00 2022-02-15 08:59:00 Surgery Nicolas Campa [facility] [place] 1.284.114 350.1.13.10 4.2.7.2.686 [id number] [facility] 2022-02-14 14:15:00 2022-02-14 14:15:00 Outpatient R NICOLAS CAMPA [facility] [id number] [facility] 2022-02-14 14:15:00 2022-02-14 14:15:00 Outpatient R NICOLAS CAMPA [facility] [id number] [facility] 2022-02-14 11:30:00 2022-02-14 11:45:00 Junior Analyst Visit Pob, Adc Lab Main Nicolas Campa [facility] PROFESS[facility] 1.2840.114 350.1.13.10 4.2.7.2.686 [id number] [facility] 2022-02-14 11:30:00 2022-02-14 11:30:00 Outpatient NICOLAS FARIAS [facility] [id number] [facility] 2022-02-11 09:00:00 2022-02-11 09:15:00 Junior Analyst Visit Pob, Adc Lab Sylvia Lockhart [facility] PROFESSIO [facility] 1..840.114 350.1.13.10 4.2.7.2.686 [id number] [facility] 2022-02-11 09:00:00 2022-02-11 09:00:00 Outpatient SYLVIA MALDONADO [facility] [id number] [facility] 2022-02-11 08:45:00 2022-02-11 09:00:00 Laboratory Only Only, Adc Test Mirian Montalvo [facility] 1..840.114 350.1.13.10 4.2.7.2.686 [id number] [facility] 2022-02-11 00:00:00 2022-02-11 00:00:00 Orders Only Doctor Unassigned, [place] [facility] 1.840.114 350.1.13.10 4.2.7.2.686 [id number] [facility] 2022-02-09 00:00:00 2022-02-09 00:00:00 (TEL) STLMLC STLMLC [id number] [facility] 2022-02-08 07:45:00 2022-02-08 08:00:00 Junior Analyst Visit Pob, Adc Lab Nicolas Bustamante [facility] BU[facility] 1..840.114 350.1.13.10 4.2.7.2.686 [id number] [facility] 2022-02-08 07:45:00 2022-02-08 07:45:00 Outpatient NICOLAS FARIAS [facility] [id number] [facility] 2022-02-08 00:00:00 2022-02-08 00:00:00 (TEL) STLMLC STLMLC [id number] [facility] 2022-02-08 00:00:00 2022-02-08 00:00:00 (TEL) STLMLC STLMLC [id number] [facility] 2022-01-30 15:15:00 2022-01-30 15:15:00 Outpatient R NICOLAS CAMPA [facility] [id number] [facility] 2022-01-30 00:00:00 2022-01-30 00:00:00 Orders Only Doctor Unassigned, [place] [facility] 1..840.114 350.1.13.10 4.2.7.2.686 [id number] [facility] 2022-01-27 00:00:00 2022-01-27 00:00:00 (TEL) STLMLC STLMLC [id number] [facility] 2022-01-23 13:00:00 2022-01-23 13:15:00 Junior Analyst Visit Pob, Adc Lab Main Gabbi Mirian [facility] 1..840.114 350.1.13.10 4.2.7.2.686 [id number] [facility] 2022-01-23 13:00:00 2022-01-23 13:00:00 Outpatient R MIRIAN MONTALVO [facility] [id number] [facility] 2022-01-17 12:05:18 2022-01-17 23:59:00 Outpatient R RADIOLOGY [facility] [id number] [facility] 2022-01-17 12:05:18 2022-01-17 23:59:00 Hospital Encounter Radiology [facility] 1..840.114 350.1.13.10 4.2.7.2.686 [id number] [facility] 2022-01-17 12:00:00 2022-01-17 12:15:00 Junior Analyst Visit Piper, Adc Lab Main Mirian Montalvo [facility] CANDIE ELLER [facility] 1..840.114 350.1.13.10 4.2.7.2.686 [id number] [facility] 2022-01-06 00:00:00 2022-01-06 00:00:00 (TEL) STLMLC STLMLC [id number] [facility] 2022-01-03 11:52:59 2022-01-03 23:59:00 Outpatient R RADIOLOGY [facility] [id number] [facility] 2022-01-03 11:52:59 2022-01-03 23:59:00 Hospital Encounter Radiology [facility] 1..840.114 350.1.13.10 4.2.7.2.686 [id number] [facility] 2022-01-02 00:00:00 2022-01-02 00:00:00 (TEL) STLMLC STLMLC [id number] [facility] 2022-01-02 00:00:00 2022-01-02 00:00:00 OFFICE VISIT ESTAB PT LEVEL 4 STLMLC STLMLC [id number] [facility] 2021-12-27 00:00:00 2021-12-27 00:00:00 (TEL) STLMLC STLMLC [id number] [facility] 2021-12-23 14:17:19 2021-12-23 23:59:00 Hospital Encounter Radiology [facility] 1..840.114 350.1.13.10 4.2.7.2.686 [id number] [facility] 2021-12-23 14:16:57 2021-12-23 14:16:57 Outpatient R RADIOLOGY [facility] [id number] [facility] 2021-12-23 14:16:57 2021-12-23 14:16:57 Hospital Encounter Radiology [facility] [place] 1.2.840.114 350.1.13.10 4.2.7.2.686 [id number] [facility] 2021-12-06 00:00:00 2021-12-06 00:00:00 (TEL) STLMLC STLMLC [id number] [facility] 2021-11-17 13:17:58 2021-11-17 23:59:00 Hospital Encounter Radiology [facility] 1.2.840.114 350.1.13.10 4.2.7.2.686 [id number] [facility] 2021-11-17 13:17:06 2021-11-17 23:59:00 Hospital Encounter Radiology [facility] 1.2.840.114 350.1.13.10 4.2.7.2.686 [id number] [facility] 2021-11-17 13:17:06 2021-11-17 23:59:00 Outpatient R RADIOLOGY [facility] RAD [id number] [facility] 2021-11-11 00:00:00 2021-11-11 00:00:00 (TEL) STLMLC STLMLC [id number] [facility] 2021-11-08 00:00:00 2021-11-08 00:00:00 OFFICE VISIT EST PT LEVEL 3 STLMLC STLMLC [id number] [facility] 2021-11-03 14:15:00 2021-11-03 14:30:00 Junior Analyst Visit Pob, Adc Lab Main Mirian [facility] 1.2840.114 350.1.13.10 4.2.7.2.686 [id number] [facility] 2021-11-03 14:15:00 2021-11-03 14:15:00 Outpatient MIRIAN FELIZ [facility] [id number] [facility] 2021-11-03 00:00:00 2021-11-03 00:00:00 Orders Only Doctor Unassigned, [place] [facility] 1.2.840.114 350.1.13.10 4.2.7.2.686 [id number] [facility] 2021-10-24 00:00:00 2021-10-24 00:00:00 (TEL) STLMLC STLMLC [id number] [facility] 2021-10-10 00:00:00 2021-10-10 00:00:00 (TEL) STLMLC STLMLC [id number] [facility] 2021-10-07 00:00:00 2021-10-07 00:00:00 SUB ANNUAL [facility] VISIT STLMLC STLMLC [id number] [facility] 2021-10-07 00:00:00 2021-10-07 00:00:00 OFFICE VISIT EST PT LEVEL 3 STLMLC STLMLC [id number] [facility] 2021-07-25 00:00:00 2021-07-25 00:00:00 (TEL) STLMLC STLMLC [id number] [facility] 2021-07-14 00:00:00 2021-07-14 00:00:00 OFFICE VISIT ESTAB PT LEVEL 4 STLMLC STLMLC [id number] [facility] 2021-06-20 00:00:00 2021-06-20 00:00:00 (TEL) STLMLC STLMLC [id number] [facility] 2021-06-10 00:00:00 2021-06-10 00:00:00 (TEL) STLMLC STLMLC [id number] [facility] 2021-06-06 00:00:00 2021-06-06 00:00:00 (TEL) STLMLC STLMLC [id number] [facility] 2021-06-06 00:00:00 2021-06-06 00:00:00 OFFICE VISIT EST PT LEVEL 3 STLMLC STLMLC [id number] [facility] 2021-06-02 00:00:00 2021-06-02 00:00:00 OFFICE VISIT EST PT LEVEL 3 STLMLC STLMLC [id number] [facility] 2021-04-13 00:00:00 2021-04-13 00:00:00 OFFICE VISIT ESTAB PT LEVEL 4 STLMLC STLMLC [id number] [facility] 2021-04-05 00:00:00 2021-04-05 00:00:00 Outpatient STLMLC STLMLC [id number] [facility] 2021-03-01 00:00:00 2021-03-01 00:00:00 Outpatient STLMLC STLMLC [id number] [facility] 2020-12-13 00:00:00 2020-12-13 00:00:00 Outpatient STLMLC STLMLC [id number] [facility] 2020-11-21 00:00:00 2020-11-21 00:00:00 Outpatient STLMLC STLMLC [id number] [facility] 2020-11-08 00:00:00 2020-11-08 00:00:00 Outpatient STLMLC STLMLC [id number] [facility] 2020-10-14 00:00:00 2020-10-14 00:00:00 Outpatient STLMLC STLMLC [id number] [facility] 2020-07-21 00:00:00 2020-07-21 00:00:00 Outpatient STLMLC STLMLC [id number] [facility] 2020-06-29 00:00:00 2020-06-29 00:00:00 Outpatient STLMLC STLMLC [id number] [facility] 2020-06-22 00:00:00 2020-06-22 00:00:00 Outpatient STLMLC STLMLC [id number] [facility] 2020-04-27 15:47:00 2020-04-27 15:47:00 [facility] [id number] [facility] 2020-04-12 11:12:00 2020-04-12 11:12:00 Outpatient [facility] [id number] [facility] 2020-04-06 08:16:00 2020-04-06 08:16:[address] [facility], [place] [id number] [facility] 2020-03-11 09:40:00 2020-03-11 09:40:00 [facility] [id number] [facility] 2020-01-16 15:20:00 2020-01-16 15:20:00 [place] [address] [facility] [id number] [facility] 2019-11-27 10:51:00 2019-11-27 10:51:00 [place] [facility] [facility] [place] [facility] [id number] [facility] 2019-11-20 08:43:00 2019-11-20 08:43:00 [place] [facility] [facility] [address] [facility] [facility] [id number] [facility] 2019-11-18 14:00:00 2019-11-18 14:00:00 [place] [facility] [address] [facility] [facility] [id number] [facility] 2019-11-18 10:06:00 2019-11-18 10:06:00 [place] [facility] [id number] [facility] 2019-10-28 16:14:00 2019-10-28 16:14:00 [place] [address] [facility] [id number] [facility] 2019-10-26 23:58:00 2019-10-26 23:58:[address] [facility] [address] [facility] [address] [facility] [id number] [facility] 2019-10-23 08:30:00 2019-10-23 08:30:[address] [facility] [address] [facility] [address] [facility] [id number] [facility] 2019-09-07 02:09:00 2019-09-07 02:09:00 [place] [facility] [address] [facility] [id number] [facility] 2019-09-04 08:39:00 2019-09-04 08:39:[address] [facility] [address] [facility] [facility] [id number] [facility] 2019-09-03 15:00:00 2019-09-03 15:00:00 [place] [place] [address] [facility] [facility] [id number] [facility] 2019-08-05 08:20:00 2019-08-05 08:20:[address] [facility] [address] [facility] [place] [facility] [id number] [facility] 2019-07-23 11:48:00 2019-07-23 11:48:00 [place] [facility] [address] [facility] [place] [facility] [id number] [facility] 2019-07-04 11:00:00 2019-07-04 11:00:[address] [facility] [address] [facility] [facility] [id number] [facility] 2019-06-16 14:52:00 2019-06-16 14:52:00 Outpatient cheyennezzAmy Schochler DO Porfirio Morelos DO [id number] [facility] 2019-06-05 12:07:00 2019-06-05 12:07:[address] [facility] [address] [facility] [facility] [id number] [facility] 2019-04-23 09:47:00 2019-04-23 09:47:[address] [facility] [address] [facility] [facility] [id number] [facility] 2019-04-15 13:00:00 2019-04-15 13:00:00 Outpatient [facility] [id number] [facility] Results Test Description Test Time Test Comments Results Result Co mments Source PROTHROMBIN [id number] 15:52:00* Test Item Value Reference Range Interpretation Comme nts PT PATIENT (test code = PTP) 16.6 SECONDS 9.3-12.9 H INTERNATIONAL NORMAL RATIO (test code = INR) 1.48 INR Unit 0.8-1.2 H TARGET INR BY INDICATION Indication INR1. Prophylaxis of venous thrombosis 2.0 - 3.0 (orthopedic surgery), Prophylaxis of venous thrombosis (other than high-risk surgery), Treatment of Deep Vein Thrombosis/Pulmonary Embolism, Prevention of systemic embolism - Tissue heart valves, Acute Myocardial Infarction (to prevent systemic embolism), Valvular heart disease, Acute Myocardial Infarction (to prevent systemic embolism), Valvular heart disease, Atrial Fibrillation, Bileaflet mechanical valve in aortic position.2. Mechanical prosthetic valves (high risk), 2.5 - 3.5 Presence of Lupus Anticoagulant or Antiphospholipid Antibodies, Prevention of systemic embolism - Acute Myocardial Infarction (to prevent recurrent infarct). THROMBOPLASTIN TIME [id number] 15:52:00* Test Item Value Reference Range Interpretation Comme nts THROMBOPLASTIN TIME PARTIAL (test code = PTT) 36.9 SECONDS 26-35 H CBC W/AUTO [id number] 15:47:00* Test Item Value Reference Range Interpretation Comme nts WHITE BLOOD CELL (test code = WBC) 7.6 K/mm3 3.5-11.0 N RED BLOOD CELL (test code = RBC) 4.02 M/mm3 4.70-6.10 L HEMOGLOBIN (test code = HGB) 12.6 G/DL 10.4-14.9 N HEMATOCRIT (test code = HCT) 35.3 % 31.5-44.1 N MEAN CELL VOLUME (test code = MCV) 87.8 Fl 84.5-98.6 N MEAN CELL HGB (test code = MCH) 31.3 pg 27.0-34.2 N MEAN CELL HGB CONCETRATION (test code = MCHC) 35.7 G/DL 31.5-34.0 H RED CELL DISTRIBUTION WIDTH (test code = RDW) 12.5 SD 11.5-14.5 N PLATELET COUNT (test code = PLT) 254 K/mm3 150-450 N MEAN PLATELET VOLUME (test c ode = MPV) 10.30 fL 7.0-10.5 N NEUTROPHIL % (test code = NT%) 71.9 % 40-76 N IMMATURE GRANULOCYTE % (test code = IG%) 0.4 % 0.0-5.0 N LYMPHOCYTE % (test code = LY%) 18.4 % 20.5-51.1 L MONOCYTE % (test code = MO%) 7.1 % 1.7-9.3 N EOSINOPHIL % (test code = EO%) 1.2 % 0.0-6.0 N BASOPHIL % (test code = BA%) 1.0 % 0.0-2.0 N NUCLEATED RBC % (test code = NRBC%) 0.0 /100WBC% 0.0-1.0 N NEUTROPHIL # (test code = NT#) 5.5 K/mm3 1.8-7.6 N IMMATURE GRANULOCYTE # (test code = IG#) 0.03 x10 3/uL 0.00-0.03 N LYMPHOCYTE # (test code = LY#) 1.4 K/mm3 0.6-3.2 N MONOCYTE # (test code = MO#) 0.5 K/mm3 0.3-1.1 N EOSINOPHIL # (test code = EO#) 0.1 K/mm3 0.0-0.4 N BASOPHIL # (test code = BA#) 0.1 K/mm3 0.0-0.1 N NUCLEATED RBC # (test code = NRBC#) 0.0 K/mm3 0.0-0.1 N MANUAL DIFF REQUIRED (test c ode = MDIFF) NO DIFF/SCN CRITERIA COAGULATION TIME [id number] 17:42:00* Test Item Value Reference Range Interpretation Comme nts COAGULATION TIME ACTIVATED ( test code = ACT) 292 SECistat 74-125 H BASIC METABOLIC [id number] 09:30:00* Test Item Value Reference Range Interpretation Comme nts SODIUM (test code = NA) 137 mmol/L 134-147 N POTASSIUM (test code = K) 4.8 mmol/L 3.4-5.0 N CHLORIDE (test code = CL) 109 mmol/L 100-108 H CARBON DIOXIDE (test code = CO2) 21 mmol/L 21-32 N ANION GAP (test code = GAP) 7.0 GAP calc 4.0-15.0 N GLUCOSE (test code = GLU) 244 MG/DL 70-110 H BLOOD UREA NITROGEN (test code = BUN) 26 MG/DL 7-18 H GLOMERULAR FILTRATION RATE (test code = GFR) 40 estGFR >60 L The Glomerular Filtration Rate is a calculated parameterbased on serum Creatinine, patient age and sex. GFR valuesless than 60 mL/min/1.73 square meters are indicative ofChronic Kidney Disease. Values less than 15 mL/min/1.73square meters indicate Kidney failure. The calculation forGFR is based on the CKD-EPI (2020) calculation. This formulais race indifferent and is the recommended formula for GFRby the National Kidney Foundation for Adults.The GFR will not calculate if the sex is unknown or if thepatient's age is <18 years. CREATININE (test code = CREAT) 1.4 MG/DL 0.6-1.0 H CALCIUM (test code = CA) 8.9 MG/DL 8.5-10.1 N GLUCOSE BEDSIDE [id number] 08:19:00* Test Item Value Reference Range Interpretation Comme nts GLUCOSE BEDSIDE TESTING (latrice t code = GLUBED) 159 mg/dL 70-110 H GLUCOSE BEDSIDE [id number] 17:09:00* Test Item Value Reference Range Interpretation Comme nts GLUCOSE BEDSIDE TESTING (latrice t code = GLUBED) 166 mg/dL 70-110 H COAGULATION TIME [id number] 10:57:00* Test Item Value Reference Range Interpretation Comme nts COAGULATION TIME ACTIVATED ( test code = ACT) 305 SECistat 74-125 H - XR CHEST 1 [id number] 07:51:00 [facility] 1950 Sex: F Name: ALTAGRACIA CLAROS [place] : 1950 Age/S: 72 / F [address] Unit #: [id number] Loc: [place] [address] Phys: Caitlin Wood MD Acct: [id number] Dis Date: Status: [place] [facility] [place] #: [phone] Exam Date: 07/12/2022 0740 FAX #: Reason: PRE OP EXAMS: CPT: [id number] XR CHEST 1 V 48912 Fluoro Time: DAP (Gy m2): Air Kerma (mGy): EXAM: - XR CHEST 1 V Location code:C3 HISTORY: PRE OP C OMPARISON: 03/14/2022 FINDINGS: Single AP view of the chest is provided. Heart size and vascularity are within normal limits. The lungs are clear of focal consolidation. No effusion, pneumothorax, or acute osseous abnormality. IMPRESSION: 1. No radiographic evidence of acute cardiopulmonary process. at 0751 Reported and signed by: Abiodun Gómez MD CC: Caitlin Wood MD PAGE 1 Signed Report Name: ALTAGRACIA CLAROS [place] : 1950 Age/S: 72 / F [address] Unit #: [id number] Loc: [place] [address] Phys: Caitlin Leblanc MD Acct: [id number] Dis Date: Status: [place] [facility] [place] #: [phone] Exam Date: 07/12/2022 0740 FAX #: Reason: PRE OP EXAMS: CPT: [id number] XR CHEST 1 V 91841 Fluoro Time: DAP (Gy m2): Air Kerma (mGy): (Continued) Technologist: Tata Serna, RT,(R),(CT) Trnscb Date/Time: 07/12/2022 (0751) AlphonsoCB5 Orig Print D/T: S: 07/12/2022 (8748) PAGE 2 Signed Report PROTHROMBIN [id number] 14:37:00* Test Item Value Reference Range Interpretation Comme [facility] PT PATIENT (test code = PTP) 10.4 SECONDS 9.3-12.9 N INTERNATIONAL NORMAL RATIO (test code = INR) 0.91 INR Unit 0.8-1.2 N TARGET INR BY INDICATION Indication INR1. Prophylaxis of venous thrombosis 2.0 - 3.0 (orthopedic surgery), Prophylaxis of venous thrombosis (other than high-risk surgery), Treatment of Deep Vein Thrombosis/Pulmonary Embolism, Prevention of systemic embolism - Tissue heart valves, Acute Myocardial Infarction (to prevent systemic embolism), Valvular heart disease, Acute Myocardial Infarction (to prevent systemic embolism), Valvular heart disease, Atrial Fibrillation, Bileaflet mechanical valve in aortic position.2. Mechanical prosthetic valves (high risk), 2.5 - 3.5 Presence of Lupus Anticoagulant or Antiphospholipid Antibodies, Prevention of systemic embolism - Acute Myocardial Infarction (to prevent recurrent infarct). THROMBOPLASTIN TIME [id number] 14:37:00* Test Item Value Reference Range Interpretation Comme [facility] THROMBOPLASTIN TIME PARTIAL (test code = PTT) 31.4 SECONDS 26-35 N BASIC METABOLIC [id number] 13:58:00* Test Item Value Reference Range Interpretation Comme [facility] SODIUM (test code = NA) 134 mmol/L 134-147 N POTASSIUM (test code = K) 5.0 mmol/L 3.4-5.0 N CHLORIDE (test code = CL) 103 mmol/L 100-108 N CARBON DIOXIDE (test code = CO2) 25 mmol/L 21-32 N ANION GAP (test code = GAP) 6.0 GAP calc 4.0-15.0 N GLUCOSE (test code = GLU) 252 MG/DL 70-110 H BLOOD UREA NITROGEN (test code = BUN) 34 MG/DL 7-18 H GLOMERULAR FILTRATION RATE (test code = GFR) 32 estGFR >60 L The Glomerular Filtration Rate is a calculated parameterbased on serum Creatinine, patient age and sex. GFR valuesless than 60 mL/min/1.73 square meters are indicative ofChronic Kidney Disease. Values less than 15 mL/min/1.73square meters indicate Kidney failure. The calculation forGFR is based on the CKD-EPI (2020) calculation. This formulais race indifferent and is the recommended formula for GFRby the National Kidney Foundation for Adults.The GFR will not calculate if the sex is unknown or if thepatient's age is <18 years. CREATININE (test code = CREAT) 1.7 MG/DL 0.6-1.0 H CALCIUM (test code = CA) 9.7 MG/DL 8.5-10.1 N CBC W/AUTO [id number] 13:57:00* Test Item Value Reference Range Interpretation Comme nts WHITE BLOOD CELL (test code = WBC) 7.2 K/mm3 3.5-11.0 N RED BLOOD CELL (test code = RBC) 4.13 M/mm3 4.70-6.10 L HEMOGLOBIN (test code = HGB) 12.8 G/DL 10.4-14.9 N HEMATOCRIT (test code = HCT) 36.9 % 31.5-44.1 N MEAN CELL VOLUME (test code = MCV) 89.3 Fl 84.5-98.6 N MEAN CELL HGB (test code = MCH) 31.0 pg 27.0-34.2 N MEAN CELL HGB CONCETRATION (test code = MCHC) 34.7 G/DL 31.5-34.0 H RED CELL DISTRIBUTION WIDTH (test code = RDW) 12.5 SD 11.5-14.5 N PLATELET COUNT (test code = PLT) 245 K/mm3 150-450 N MEAN PLATELET VOLUME (test c ode = MPV) 11.00 fL 7.0-10.5 H NEUTROPHIL % (test code = NT%) 65.7 % 40-76 N IMMATURE GRANULOCYTE % (test code = IG%) 0.4 % 0.0-5.0 N LYMPHOCYTE % (test code = LY%) 23.9 % 20.5-51.1 N MONOCYTE % (test code = MO%) 6.8 % 1.7-9.3 N EOSINOPHIL % (test code = EO%) 2.2 % 0.0-6.0 N BASOPHIL % (test code = BA%) 1.0 % 0.0-2.0 N NUCLEATED RBC % (test code = NRBC%) 0.0 /100WBC% 0.0-1.0 N NEUTROPHIL # (test code = NT#) 4.8 K/mm3 1.8-7.6 N IMMATURE GRANULOCYTE # (test code = IG#) 0.03 x10 3/uL 0.00-0.03 N LYMPHOCYTE # (test code = LY#) 1.7 K/mm3 0.6-3.2 N MONOCYTE # (test code = MO#) 0.5 K/mm3 0.3-1.1 N EOSINOPHIL # (test code = EO#) 0.2 K/mm3 0.0-0.4 N BASOPHIL # (test code = BA#) 0.1 K/mm3 0.0-0.1 N NUCLEATED RBC # (test code = NRBC#) 0.0 K/mm3 0.0-0.1 N MANUAL DIFF REQUIRED (test c ode = MDIFF) NO DIFF/SCN CRITERIA GLUCOSE BEDSIDE [id number] 11:36:00* Test Item Value Reference Range Interpretation Comme nts GLUCOSE BEDSIDE TESTING (latrice t code = GLUBED) 258 mg/dL 70-110 H BASIC METABOLIC [id number] 09:00:00* Test Item Value Reference Range Interpretation Comme nts SODIUM (test code = NA) 134 mmol/L 134-147 N POTASSIUM (test code = K) 4.6 mmol/L 3.4-5.0 N CHLORIDE (test code = CL) 104 mmol/L 100-108 N CARBON DIOXIDE (test code = CO2) 22 mmol/L 21-32 N ANION GAP (test code = GAP) 8.0 GAP calc 4.0-15.0 N GLUCOSE (test code = GLU) 258 MG/DL 70-110 H BLOOD UREA NITROGEN (test co de = BUN) 20 MG/DL 7-18 H GLOMERULAR FILTRATION RATE ( test code = GFR) 36 estGFR >60 L CREATININE (test code = CREAT) 1.5 MG/DL 0.6-1.0 H CALCIUM (test code = CA) 9.8 MG/DL 8.5-10.1 N [id number] 09:00:00* Test Item Value Reference Range Interpretation Comme nts MAGNESIUM (test code = MAG) 1.8 MG/DL 1.8-2.4 N GLUCOSE BEDSIDE [id number] 08:04:00* Test Item Value Reference Range Interpretation Comme nts GLUCOSE BEDSIDE TESTING (latrice t code = GLUBED) 240 mg/dL 70-110 H GLUCOSE BEDSIDE [id number] 20:51:00* Test Item Value Reference Range Interpretation Comme nts GLUCOSE BEDSIDE TESTING (latrice t code = GLUBED) 232 mg/dL 70-110 H GLUCOSE BEDSIDE [id number] 08:24:00* Test Item Value Reference Range Interpretation Comme nts GLUCOSE BEDSIDE TESTING (latrice t code = GLUBED) 207 mg/dL 70-110 H GLYCOSYLATED HEMOGLOBIN [id number] 06:51:00* Test Item Value Reference Range Interpretation Comme nts GLYCOSYLATED HEMOGLOBIN (HA1 C) (test code = GLYHGB) 9.2 % A1C 0.0-5.7 H ESTIMATED AVERAGE GLUCOSE (t est code = EAG) 217 MG/DLest BASIC METABOLIC [id number] 06:42:00* Test Item Value Reference Range Interpretation Comme nts SODIUM (test code = NA) 133 mmol/L 134-147 L POTASSIUM (test code = K) 4.5 mmol/L 3.4-5.0 N CHLORIDE (test code = CL) 101 mmol/L 100-108 N CARBON DIOXIDE (test code = CO2) 23 mmol/L 21-32 N ANION GAP (test code = GAP) 9.0 GAP calc 4.0-15.0 N GLUCOSE (test code = GLU) 230 MG/DL 70-110 H BLOOD UREA NITROGEN (test co de = BUN) 20 MG/DL 7-18 H GLOMERULAR FILTRATION RATE ( test code = GFR) 37 estGFR >60 L CREATININE (test code = CREAT) 1.5 MG/DL 0.6-1.0 H CALCIUM (test code = CA) 9.3 MG/DL 8.5-10.1 N LIPID PROFILE (CORONARY RISK)2022-03-16 06:42:00* Test Item Value Reference Range Interpretation Comme nts TRIGLYCERIDES (test code = TRIG) 372 MG/DL 0-150 H CHOLESTEROL (test code = CHOL) 178 MG/DL 133-200 N CHOLESTEROL/HDL RATIO (test code = CHOLHDL) 7.12 RATIO See_Comment RISK ASSOCIATED WITH CHOL/HDL RATIOS: RISK MALE FEMALE1/2 AVERAGE 3.43 3.27AVERAGE 4.97 4.442X AVERAGE 9.55 7.053X AVERAGE 23.39 11.04 NOTE THAT THE REFERENCE VALUE IS RELATED TO RISK LEVELS ASRECOMMENDED BY THE [facility]. [Automated message] The system which generated this result transmitted reference range: 0-. The reference range was not used to interpret this result as normal/abnormal. HDL CHOLESTEROL (test code = HDL) 25 MG/DL 40-59 L NON-HDL CHOLESTEROL (test code = NHDL) 153 mg/dL <130 H LIPOPROTEIN LDL (test code = LDL) 102 MG/DL 0-129 N <100 [id number] 0 - 129 NEAR OPTIMAL/ABOVE [id number] - 159 [id number] - 189 HIGH>OR= 190 VERY HIGHNOTE THAT GUIDELINES ARE PROVIDED BY NATIONAL CHOLESTEROLEDUCATION PROGRAM ADULT TREATMENT PANEL III LDL/HDL (test code = LDL/HDL) 4.08 Ratio See_Comment H [Automated messa ge] The system which generated this result transmitted reference range: 1.48-3.22 Avg. The reference range was not used to interpret this result as normal/abnormal. [id number] 06:42:00* Test Item Value Reference Range Interpretation Comme nts MAGNESIUM (test code = MAG) 1.4 MG/DL 1.8-2.4 L NT PRO-BRAIN NATRIURETIC [id number] 06:38:00* Test Item Value Reference Range Interpretation Comme nts NT PRO-BRAIN NATRIURETIC PEP TI (test code = PROBNP) 75 PG/ML 0-100 N CBC W/AUTO [id number] 06:23:00* Test Item Value Reference Range Interpretation Comme nts WHITE BLOOD CELL (test code = WBC) 6.6 K/mm3 3.5-11.0 N RED BLOOD CELL (test code = RBC) 3.63 M/mm3 4.70-6.10 L HEMOGLOBIN (test code = HGB) 11.2 G/DL 10.4-14.9 N HEMATOCRIT (test code = HCT) 32.9 % 31.5-44.1 N MEAN CELL VOLUME (test code = MCV) 90.6 Fl 84.5-98.6 N MEAN CELL HGB (test code = MCH) 30.9 pg 27.0-34.2 N MEAN CELL HGB CONCETRATION (test code = MCHC) 34.0 G/DL 31.5-34.0 N RED CELL DISTRIBUTION WIDTH (test code = RDW) 12.9 SD 11.5-14.5 N PLATELET COUNT (test code = PLT) 203 K/mm3 150-450 N MEAN PLATELET VOLUME (test c ode = MPV) 11.80 fL 7.0-10.5 H NEUTROPHIL % (test code = NT%) 54.3 % 40-76 N IMMATURE GRANULOCYTE % (test code = IG%) 0.6 % 0.0-5.0 N LYMPHOCYTE % (test code = LY%) 29.7 % 20.5-51.1 N MONOCYTE % (test code = MO%) 9.2 % 1.7-9.3 N EOSINOPHIL % (test code = EO%) 5.4 % 0.0-6.0 N BASOPHIL % (test code = BA%) 0.8 % 0.0-2.0 N NUCLEATED RBC % (test code = NRBC%) 0.0 /100WBC% 0.0-1.0 N NEUTROPHIL # (test code = NT#) 3.6 K/mm3 1.8-7.6 N IMMATURE GRANULOCYTE # (test code = IG#) 0.04 x10 3/uL 0.00-0.03 H LYMPHOCYTE # (test code = LY#) 2.0 K/mm3 0.6-3.2 N MONOCYTE # (test code = MO#) 0.6 K/mm3 0.3-1.1 N EOSINOPHIL # (test code = EO#) 0.4 K/mm3 0.0-0.4 N BASOPHIL # (test code = BA#) 0.1 K/mm3 0.0-0.1 N NUCLEATED RBC # (test code = NRBC#) 0.0 K/mm3 0.0-0.1 N MANUAL DIFF REQUIRED (test c ode = MDIFF) NO DIFF/SCN CRITERIA GLUCOSE BEDSIDE [id number] 20:50:00* Test Item Value Reference Range Interpretation Comme nts GLUCOSE BEDSIDE TESTING (latrice t code = GLUBED) 223 mg/dL 70-110 H GLUCOSE BEDSIDE [id number] 16:40:00* Test Item Value Reference Range Interpretation Comme nts GLUCOSE BEDSIDE TESTING (latrice t code = GLUBED) 272 mg/dL 70-110 H - MRI BRAIN W/O [id number] 11:44:00 [facility] : 1950 Sex: F FAX: Rosalinda Cr MD Camps: PM St: ADM Name: ALTAGRACIA CLAROS [facility] : 1950 Age/S: 71/F [address] [facility] [place] Unit #:[id number] Loc: [place] [address] Phys: Rosalinda Cr MD Acct: [id number] Dis Date: Status: ADM IN PHONE #: [phone] Exam Date: 03/15/2022 1137 FAX #: Reason: acute stroke EXAMS: CPT: [id number] MRI BRAIN W/O CONTRAST 91698 EXAM: - MRI BRAIN W/O CONTRAST INDICATION: acute stroke T18 TECHNIQUE: Multiplanar multisequence MR images of the brain were obtained without intravenous contrast. FINDINGS: Intra-axial structures, and extra-axial fluid spaces: No acute or subacute infarct, or intracranial hemorrhage seen. No mass effect, midline shift or hydrocephalus noted. Foci of high G0nmklmm identified scattered within the periventricular white matter, suggesting sequela of chronic small vessel ischemic disease. Cervicomedullary junction appears unremarkable. Visualized flow voids: appear unremarkable. Paranasal sinuses and mastoid air cells: Appear clear. Osseous structures: appear unremarkable. Orbits: Appear unremarkable. IMPRESSION: No acute intracranial process seen. at 1144 Reported and signed by: Delbert Lance M.D. CC: Rosalinda Cr MD Technologist: RT Toño(R)(MR) Transcribed Date/Time/By: 03/15/2022 (3390) :AlphonsoAH26 Orig Print D/T: S: 03/15/2022 (5571) PAGE 1 Signed ReportGLUCOSE BEDSIDE [id number] 10:51:00* Test Item Value Reference Range Interpretation Comme nts GLUCOSE BEDSIDE TESTING (latrice t code = GLUBED) 135 mg/dL 70-110 H UA RFLX MICR CULT IF [id number] 06:07:00* Test Item Value Reference Range Interpretation Comme nts UA COLOR (test code = COLU) YELLOW discript YEL/STRAW UA APPEARANCE (test code = APPU) CLEAR discript CLEAR UA GLUCOSE DIPSTICK (test code = DGLUU) NEGATIVE mg/dL NEG UA BILIRUBIN DIPSTICK (test code = BILU) NEGATIVE mg/dL NEG UA KETONE DIPSTICK (test code = KETU) NEGATIVE mg/dL NEG UA SPECIFIC GRAVITY (test code = SGU) <=1.005 SG 1.005-1.030 UA BLOOD DIPSTICK (test code = FINN) NEGATIVE mg/DL NEG UA PH DIPSTICK (test code = ANDRÉS) 6.0 pH UNITS 5.0-7.0 UA PROTEIN DIPSTICK (test code = PROU) NEGATIVE mg/dL NEG UA UROBILINIOGEN DIPSTICK (test code = URO) 0.2 mg/dL <2.0 UA NITRITE DIPSTICK (test code = DAWN) NEGATIVE SCREEN NEG UA LEUKOCYTE ESTERASE DIPSTICK (test code = LEUU) NEGATIVE Leuk/mcL NEGATIVE UA CULTURE NEEDED? (test code = UACULT) Criteria Culture CHK Indication for culture: Temperature > 100.4 FSOURCE OF URINE: CLEAN CATCHCOVID 19 Asymptomatic IH [id number] 23:03:00* Test Item Value Reference Range Interpretation Comme nts COVID 19 Asymptomatic IH AG (test code = COVNONPUIAG) NEGATIVE Negative Per pilates coordinator , negative results should be treated aspresumptive and, if inconsistent with clinical signs andsymptoms or necessary for patient management, should betested with an alternative molecular assay. Negative resultsdo not preclude SARS-CoV-2 infection and should not be usedas the sole basis for patient management decisions. Negative results should be considered in the context of apatient's recent exposures, history, presence of clinicalsigns and symptoms consistent with COVID-19. - XR CHEST 1 [id number] 22:28:00 [facility] : 1950 Sex: F Name: ALTAGRACIA CLAROS [facility] : 1950 Age/S: 71 / F [id number] [place] Unit #: [id number] Loc: [place] [address] Phys: Elina Starks DO Acct: [id number] Dis Date: Status: REG ER PHONE #: [phone] Exam Date: 03/14/20222208 FAX #: Reason: Code Stroke EXAMS: CPT: [id number] XR CHEST 1V 35059 Fluoro Time: DAP (Gy m2): Air Kerma (mGy): EXAM: Chest x-ray, 1 view Dictation location: H10 COMPARISON: None INDICATION: Code Stroke DISCUSSION: No consolidation, pneumothorax, or pleural effusion is seen. The cardiomediastinal silhouette is within normal limits. No acute bony abnormalities are identified. IMPRESSION: No evidence of acute abnormality. at 2228 Reported and signed by: Lm Watts M.D. CC: Elina Starks DO PAGE 1 Signed Report Name: ALTAGRACIA CLAROS [facility] : 1950 Age/S: 71 / F [address] [place] Unit #: [id number] Loc: [place] [address] Phys: Elina Starks DO Acct: [id number] Dis Date: Status: REG ER PHONE #: [phone] Exam Date: 03/14/20222208 FAX #: Reason: Code Stroke EXAMS: CPT: [id number] XR CHEST 1 V 72730 Fluoro Time: DAP (Gy m2): Air Kerma (mGy): (Continued) Technologist: Socrates Boone, RT(R) Trnscb Date/Time: 03/14/2022 (2227) [email or web address] Orig PrintD/T: S: 03/14/2022 (2231) PAGE 2 Signed Report- CT [place] [id number] 22:23:00 [facility] : 1950 Sex: F Name:ALTAGRACIA CLAROS [facility] : 1950 Age/S: 71 / F [address] [address] Unit #: [id number] Loc: [place] [address] Phys: Elina tSarks DO Acct: [id number] Dis Date: Status: REG ER PHONE #: [phone] Exam Date: 03/14/20222199 FAX #: Reason: expressive aphasia EXAMS: CPT: [id number] [place] [address] EXAM: CTA head with contrast and CTA neck with contrast Dictation location: H10 INDIC ATION: Expressive aphasia COMPARISON: CT head performed earlier [...] vertebral arteries and branches, the basilar artery andbranches, and P1 and P2 arteries are patent. No vascular malformation or aneurysm is seen. Other findings: Dural venous sinuses and deep veins appear patent. CTA NECK: Right side: The right common carotid artery takes origin from a common brachiocephalic trunk. The common carotid artery and carotidbulb are widely patent. There is calcified plaque at the proximal ICA resulting in approximately 10% stenosis. The internal carotid artery is otherwise unremarkable. The right vertebral artery arises from the subclavian artery and is nondominant/diminutive and appears to terminate in the right PICA artery. Left side: The left common carotid artery arises from a common brachiocephalic trunk. Thecommon carotid artery is widely patent. Mild calcified plaque at the carotid bulb results in approximately 10% stenosis. The internal carotid artery is widely patent. The left vertebral artery arisesfrom the left subclavian artery and is dominant, widely patent, and vessel supply to the basilar artery. PAGE 1 Signed Report (CONTINUED) Name: ALTAGRACIA CLAROS : 1950 Age/S: 71 / [id number] [place] Unit #: [id number] Loc: [place] [address] Phys: Elina Starks DO Acct: [id number] Dis Date: Status: REG ER PHONE #: [phone] Exam Date: 03/14/2022 2200 FAX #: Reason: expressive aphasia EXAMS: CPT: [id number] CT [place] [address] (Continued) Other findings: There is no cervical adenopathy or mass. The airway is patent and midline. The thyroid gland is unremarkable. The parotid and submandibular glands are unremarkable. Cervical spine degenerative changes are noted. IMPRESSION: 1. Normal CTA head. 2. Mild calcified plaque at the proximal right ICA and at the leftcarotid bulb, resulting in up to 10% stenosis on each side. Otherwise, unremarkable [...] RT(R) CTDI: DLP: Trnscb Date/Time: 03/14/2022 (2222) t.SDR.[email or web address] Orig Print D/T: S: 03/14/2022 (2225) PAGE 2 Signed Report- CT [place] [id number] 22:23:00 [facility] : 1950 Sex: F Name: ALTAGRACIA CLAROS [facility] : 1950 Age/S: 71 / F [address] [facility] Unit #: [id number] Loc: [place] [address] Phys: Elina Starks DO Acct: [id number] Dis Date: Status: REG ER PHONE #: [phone] Exam Date: 03/14/20222199 FAX #: Reason: expressive aphasia EXAMS: CPT: [id number] CT [place] [address] EXAM: CTA head with contrast and CTA neck with contrast Dictation location: H10 NIEVES CATION: Expressive aphasia COMPARISON: CT head performed earlier the same day TECHNIQUE: Axial 2.5 mm images of the head and neck were obtained during the arterial phase after the injection of 100 mLIsovue-370 IV contrast. Coronal and sagittal MIP reformats [...] artery. PAGE 1 Signed Report (CONTINUED) Name: ALTAGRACIA CLAROS : 1950 Age/S: 71 / [id number] [place] Unit #: [id number] Loc: [place] [address] Phys: Elina Starks DO Acct: [id number] Dis Date: Status: REG ER PHONE #: [phone] Exam Date: 03/14/20222199 FAX #: Reason: expressive aphasia EXAMS: CPT: [id number] CT [place] [address] (Continued) Other findings: There is no cervical adenopathy or mass. The airway is patent and midline. The thyroid gland is unremarkable. Theparotid and submandibular glands are unremarkable. Cervical spine degenerative changes are noted. IMPRESSION: 1. Normal CTA head. 2. Mild calcified plaque at the proximal right ICA and at the left carotid bulb, resulting in up to 10% stenosis on each side. Otherwise, unremarkable CTA neck. One or more of the following dose reduction techniques were used: Automated exposure control, adjustment of the mA and/or kV according to patient size, and/or utilization of iterative reconstruction technique. DLP: 3040 mGy-cm CTDI: 132 mGy t 2222 Reported and signed by: Lm Watts M.D. CC: Elina Starks DO Technologist:Socrates Boone, RT(R) CTDI: DLP: Trnscb Date/Time: 03/14/2022 (2222) t.[email or web address].[email or web address] Orig Print D/T: S: 03/14/2022 (2225) PAGE 2 Signed ReportBASIC METABOLIC [id number] 22:15:00* Test Item Value Reference Range Interpretation Comme nts SODIUM (test code = NA) 130 mmol/L 134-147 L POTASSIUM (test code = K) 4.5 mmol/L 3.4-5.0 N CHLORIDE (test code = CL) 100 mmol/L 100-108 N CARBON DIOXIDE (test code = CO2) 22 mmol/L 21-32 N ANION GAP (test code = GAP) 8.0 GAP calc 4.0-15.0 N GLUCOSE (test code = GLU) 231 MG/DL 70-110 H BLOOD UREA NITROGEN (test co de = BUN) 21 MG/DL 7-18 H GLOMERULAR FILTRATION RATE ( test code = GFR) 32 estGFR >60 L CREATININE (test code = CREAT) 1.7 MG/DL 0.6-1.0 H CALCIUM (test code = CA) 9.1 MG/DL 8.5-10.1 N Completed by Nursing: NOTROP-I HIGH [id number] 22:15:00* Test Item Value Reference Range Interpretation Comme nts TROP-I HIGH SENSITIVITY (test code = TROPIHS) 3.4 ng/L 0-34 N CAUTION: Units o f the current test methodology (ng/L) differfrom the prior test methodology (ng/mL) by a factor of 1000. 99th Percentile Upper Reference Limit (URL):Females: 34 ng/LMales: 54 ng/L In order to distinguish acute elevations of high sensitivitytroponin from other clinical conditions, the FourthUniversal Definition of Myocardial Infarction stressesclinical assessment and the demonstration of a rise and/orfall in serial troponin results above the URL. Results from different methodologies should not be comparedto one another as quantitative results and URLs may varyby method. Completed by Nursing: NOPROTHROMBIN [id number] 22:11:00* Test Item Value Reference Range Interpretation Comme nts PT PATIENT (test code = PTP) 10.0 SECONDS 9.3-12.9 N INTERNATIONAL NORMAL RATIO (test code = INR) 0.88 INR Unit 0.8-1.2 N TARGET INR BY INDICATION Indication INR1. Prophylaxis of venous thrombosis 2.0 - 3.0 (orthopedic surgery), Prophylaxis of venous thrombosis (other than high-risk surgery), Treatment of Deep Vein Thrombosis/Pulmonary Embolism, Prevention of systemic embolism - Tissue heart valves, Acute Myocardial Infarction (to prevent systemic embolism), Valvular heart disease, Acute Myocardial Infarction (to prevent systemic embolism), Valvular heart disease, Atrial Fibrillation, Bileaflet mechanical valve in aortic position.2. Mechanical prosthetic valves (high risk), 2.5 - 3.5 Presence of Lupus Anticoagulant or Antiphospholipid Antibodies, Prevention of systemic embolism - Acute Myocardial Infarction (to prevent recurrent infarct). THROMBOPLASTIN TIME [id number] 22:11:00* Test Item Value Reference Range Interpretation Comme nts THROMBOPLASTIN TIME PARTIAL (test code = PTT) 31.1 SECONDS 26-35 N CBC W/O [id number] 22:02:00* Test Item Value Reference Range Interpretation Comme nts WHITE BLOOD CELL (test code = WBC) [...] pg 27.0-34.2 N MEAN CELL HGB CONCETRATION ( test code = MCHC) 34.3 G/DL 31.5-34.0 H RED CELL DISTRIBUTION WIDTH (test code = RDW) 12.8 SD 11.5-14.5 N PLATELET COUNT (test code = PLT) 233 K/mm3 150-450 N MEAN PLATELET VOLUME (test c ode = MPV) 11.00 fL 7.0-10.5 H - CT HEAD/BRAIN W/O [id number] 22:00:00 [facility] 1950 Sex: F Name: ALTAGRACIA CLAROS [facility] : 1950 Age/S: 71 / F [id number] Unit #: [id number] Loc: [place] [address] Phys: Elina Starks DO Acct: [id number] Dis Date: Status: PRE ER PHONE #: [phone] Exam Date: 03/14/2022 2150 FAX #: Reason: expressive aphasia EXAMS: CPT: [id number] CT H EAD/BRAIN W/O CONT [id number] Location: CT head, 03/14/22 COMPARISON EXAMS:None of the brain TECHNIQUE: CT examination of the brain was performed without contrast on a helical scanner. Scanning conducted from skull base to vertex in the axial plane [...] in a watershed distribution between the left RUNNING SPECIALIST and MCA territory. No other findings of concern for a vascular insult. IMPRESSION: No territorial infarction or space-occupying process. No intracranialhemorrhage Difficult to age characterize small vascular insult in the left parietal lobe posteriorly medially somewhat in a watershed distribution possibly subacute in age. I have discussed the findings of this code stroke case with Dr. Starks on 03/14/22 at 9:57 PM PAGE 1 Signed Report (CONTINUED) Name: ALTAGRACIA CLAROSland : 1950 Age/S: 71 / F [address] Unit #: [id number] Loc: [place] [address] Phys: Elina Starks DO Acct: [id number] Dis Date: Status: PRE ER P LORRAINE #: [phone] Exam Date: 03/14/20222149 FAX #: Reason: expressive aphasia EXAMS: CPT: [id number] CT HEAD/BRAIN W/O CONT 49859 (Continued) FOR INTERNAL CODING PURPOSES ONLY RESULT CODE: CVRMD Electronically Signed by Rishi Hicks on 0 03/14/2022 at 2200 Reported and signed by: Adri Hicks M.D. CC: Elina Starks DO Technologist:Socrates Boone, RT(R); Kri CTDI: DLP: Trnscb Date/Time: 03/14/2022 (2199) [email or web address] Orig Print D/T: S: 03/14/2022 (2047) PAGE 2 Signed [facility] GLUCOSE (AUTOMATED)2022-03-01 13:03:23* Test Item Value Reference Range Interpretation Comme nts POCT GLU (test code = 2586037940) 321 mg/dL 70-110 H Lab Interpretation (test cod e = 92578-5) Abnormal [facility] GLUCOSE (AUTOMATED)2022-03-01 13:03:23* Test Item Value Reference Range Interpretation Comme nts POCT GLU (test code = 9681717160) 321 mg/dL 70-110 H Lab Interpretation (test cod e = 51845-7) Abnormal [facility] [id number] 12:47:00* Test Item Value Reference Range Interpretation Comme nts POCT Glu (age>30days) (test code = 3342) 321 mg/dL 70-110 A Lab Interpretation (test cod e = 50372-6) Abnormal [facility] [id number] 12:47:00* Test Item Value Reference Range Interpretation Comme nts POCT Glu (age>30days) (test code = 3342) 321 mg/dL 70-110 A Lab Interpretation (test cod e = 46180-6) Abnormal [facility] GLUCOSE (AUTOMATED)2022-02-15 13:02:47* Test Item Value Reference Range Interpretation Comme nts POCT GLU (test code = 3367969287) 152 mg/dL 70-110 H Lab Interpretation (test cod e = 06549-0) Abnormal [facility] GLUCOSE (AUTOMATED)2022-02-15 13:02:47* Test Item Value Reference Range Interpretation Comme nts POCT GLU (test code = 5150814602) 152 mg/dL 70-110 H Lab Interpretation (test cod e = 83677-2) Abnormal [facility] [id number] 12:58:00* Test Item Value Reference Range Interpretation Comme nts POCT Glu (age>30days) (test code = 3342) 152 mg/dL 70-110 A Lab Interpretation (test cod e = 49354-3) Abnormal [facility] [id number] 12:58:00* Test Item Value Reference Range Interpretation Comme nts POCT Glu (age>30days) (test code = 3342) 152 mg/dL 70-110 A Lab Interpretation (test cod e = 38679-4) [facility][id number] 00:00:00 * Test Item Value Reference Range Interpretation Comme nts Urine Culture,Comprehensive (test code = 630-4) Final report
[2024-08-02 19:07] LABS: Absolute Basophils 0.1 K/uL (0-0.5); Absolute Eosinophils 0.1 K/uL (0-0.5); Absolute Lymphocytes (CBC) 2.1 K/uL (0.7-4.9); Absolute Monocytes 0.6 K/uL (0.1-1.3); Absolute Neutrophil 5.2 K/uL (1.8-8.0); Basophils % 0.9 % (0-1.3); Eosinophils % 1.5 % (0-4.4); Hematocrit 37.3 % (36.0-45.0); Hemoglobin 12.8 g/dL (12.0-15.0); Lymphocytes % 26.3 % (15.3-44.8); MCH 33.9 pg (27.0-35.0); MCHC 34.4 g/dL (32.0-36.0); MCV 98.4 fL (80-100); MPV 9.3 fL (7.6-11.3); Monocytes % 7.6 % (3.3-12.3); Neutrophils % 63.7 % (41.7-73.7); Platelets 228 thou/uL (152-406); RBC Red Blood Cell Count 3.79 M/uL (3.86-4.86); Red Cell Distribution Width 14.8 % (12.1-15.2)
--- NOTE | 2024-08-02 19:10 | RAD REPORT ---
EXAM: Chest Single View HISTORY: COUGH COMPARISON: 07/25/2022 FINDINGS: LUNGS/PLEURA: The lungs are clear. No pleural effusions or pneumothorax. No pulmonary edema. MEDIASTINUM: The mediastinal silhouette is within normal limits. CARDIAC: Within normal limits. UPPER ABDOMEN: No significant abnormality. BONES: No acute fracture. LINES/TUBES/OTHER: N/A IMPRESSION: No evidence of acute cardiopulmonary disease.
[2024-08-02 19:12] LABS: PT Prothrombin Time 13.1 SECONDS (9.4-12.5); Protime INR 1.18
--- NOTE | 2024-08-02 19:22 | RAD REPORT ---
EXAMINATION: CT HEAD WITHOUT CONTRAST CT CERVICAL SPINE WITHOUT CONTRAST CLINICAL INDICATION: Female, 74 years old. Headache;Pain TECHNIQUE: Axial CT images from the skull base to the vertex without intravenous contrast. Axial CT i mages through the cervical spine were obtained without intravenous contrast. Sagittal and coronal reformatted images were created from the data set. Coronal and sagittal reformatted images were creat ed from the data set. One or more of the following dose reduction techniques were used: Automated exposure control, adjustment of the mA and/or kV according to patient size, and/or iterative reconstr uction. Unless otherwise specified, incidental findings do not require dedicated imaging follow-up. [id number]. COMPARISON: Head CT 07/25/2022 FINDINGS: Head: INTRACRANIAL: No acute intracranial hemorrhage. No hydrocephalus. No mass effect or midline shift. No significant white matter disease. VASCULATURE: No visualized abnormalities in the arteries or dural venous sinuses. SCALP/SKULL: No significant soft tissue or osseous abnormalities. SINUSES: The visualized paranasal sinuses and mastoid air cells are predominantly clear. Cervical spine: ALIGNMENT: The cervical spine has normal alignment without scoliosis or spondylolisthesis. BONE: Vertebral body heights are maintained. No aggressive osseous lesions. DEGENERATIVE CHANGES: Mild cervical spondylosis including uncovertebral joint hypertrophy that contri butes to mild neural foraminal narrowing on the left at C4-5. No significant central spinal stenosis identified. SOFT TISSUE: No significant abnormalities in the soft tissue of the neck. The visualized lung apices are clear. IMPRESSION: No acute intracranial abnormality. No acute fracture or traumatic malalignment of the cervical spine.
[2024-08-02 19:28] LABS: Albumin 3.7 g/dL (3.4-5.0); Albumin/Globulin Ratio 0.9 (1.1-1.8); Anion Gap 10.1 mEq/L (5.0-15.0); Bilirubin Direct 0.2 mg/dL (0-0.2); Bilirubin Indirect, Calculated 0.6 mg/dL (0.2-0.8); Bilirubin Total 0.8 mg/dL (0.2-1.0); Globulin 3.9 g/dL (2.3-3.5); Magnesium 1.4 mg/dL (1.6-2.4); Potassium 4.1 mEq/L (3.5-5.1); Protein, Total 7.6 g/dL (6.4-8.2)
--- NOTE | 2024-08-02 19:49 | RAD REPORT ---
EXAMINATION: US CAROTID DUPLEX CLINICAL INDICATION: , 74 years old. DIZZINESS. TECHNIQUE: Real-time grayscale, color flow and spectral Doppler sonographic images were obtained of t extracranial carotid system using a linear transducer. [id number]. COMPARISON: No prior exam. FINDINGS: RIGHT: Common carotid artery: 54 cm/s Internal carotid artery: 69 cm/s External carotid artery: 78 cm/s Right ICA/CCA ratio: 1.3 Plaque None Vertebral artery Antegrade LEFT: Common carotid artery: 62 cm/s Internal carotid artery: 83 cm/s External carotid artery: 49 cm/s lEFT ICA/CCA ratio: 1.3 Plaque None Vertebral artery Antegrade IMPRESSION: No hemodynamically significant stenosis (greater than 50%) within the extracranial internal carotid [facility].
[2024-08-02] MEDS ORDERED: dexAMETHasone 10 MG/ML VIAL ONE (20:45)
[2024-08-02] MEDS ORDERED: ONDANSETRON 4 MG/2 ML VIAL ONE (20:45)
[2024-08-02] MEDS ORDERED: NA CHLORIDE 0.9% 500 ML ONE (20:46)
[2024-08-02] MEDS ORDERED: MAGNESIUM SULFATE 1 gm IVPB 1 GM/100 ML BAG IV ONE (20:46)
[2024-08-02] MEDS ORDERED: FENTANYL CITR 100 MCG/2 ML ONE (20:48)
--- NOTE | 2024-08-02 22:41 | ER ---
Nurse's Notes [facility] Name: Annie Zuñiga Age: 74 yrs Sex: Female : 1950 Arrival Date: 08/02/2024 Time: 17:26 Bed 14 Private MD: Diagnosis: Headache;Unspecified kidney failure Presentation: 08/02 17:36 Chief complaint: Patient states: last night i had a bad headache on right side, and my iw hands are going numb off and on X 1 month , the headache has resolved but her hands princess still numb. Coronavirus screen: At this time, the client does not indicate any symptoms associated with coronavirus-19. Ebola Screen: No symptoms or risks identified at this time. Initial Sepsis Screen: Does the patient meet any 2 criteria? No. Patient's initial sepsis screen is negative. Does the patient have a suspected source of infection? No. Patient's initial sepsis screen is negative. Risk Assessment: Do you want to hurt yourself or someone else? Patient reports no desire to harm self or others. Onset of symptoms was August 01, 2024. 17:36 Method Of Arrival: Ambulatory iw 17:36 Acuity: BONI 3 iw Triage Assessment: 19:15 Headache History: Denies prior headaches. General: Appears in no apparent distress. kj2 Behavior is calm, cooperative. Pain: Complains of pain in right sabianism and top of head Pain began 1 day ago. Neuro: Level of Consciousness is awake, alert, Oriented to person, place, time, situation. Cardiovascular: Patient's skin is warm and dry. Respiratory: Airway is patent Respiratory effort is unlabored. GI: No signs and/or symptoms were reported involving the gastrointestinal system. : No signs and/or symptoms were reported regarding the genitourinary system. 19:15 Pain: Also complains of no other associated symptoms. kj2 Historical: - Allergies: 17:37 PENICILLINS; iw - PMHx: 17:37 Thyroid problem; kidney failure; ULCER; Hypertension; High Cholesterol; Gout; Diabetes iw - NIDDM; CVA; - Immunization history:: Adult Immunizations up to date. - Infectious Disease History:: Denies. - Family history:: not pertinent. - Social history:: Smoking status: Patient denies any tobacco usage or history of. Screenin:47 [facility] ED Fall Risk Assessment (Adult) History of falling in the last 3 months, rs5 including since admission No falls in past 3 months (0 pts) Confusion or Disorientation No (0 pts) Intoxicated or Sedated No (0 pts) Impaired Gait No (0 pts) Mobility Assist Device Used No (0 pt) Altered Elimination No (0 pt) Score/Fall Risk Level 0 - 2 = Low Risk Oriented to surroundings, Maintained a safe environment. Abuse screen: Denies threats or abuse. Nutritional screening: No deficits noted. Tuberculosis screening: No symptoms or risk factors identified. Assessment: 17:40 General: Appears in no apparent distress. comfortable, Behavior is calm, cooperative. rs5 Pain: Complains of pain in HEAD Pain currently is 4 out of 10 on a pain scale. Quality of pain is described as aching, Is continuous. Neuro: Level of Consciousness is awake, alert, obeys commands, Oriented to person, place, time, situation. 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 Gait is steady, Speech is normal, Facial symmetry appears normal, Pt reports numbness to extremities bilat. Cardiovascular: Patient's skin is warm and dry. Respiratory: Airway is patent Respiratory effort is even, unlabored, Respiratory pattern is regular, symmetrical. GI: Abdomen is round non-distended, Abd is soft and non tender X 4 quads. : No signs and/or symptoms were reported regarding the genitourinary system. EENT: No signs and/or symptoms were reported regarding the EENT system. Derm: Skin is intact, Skin is pink, warm \T\ dry. 19:00 Reassessment: Patient appears in no apparent distress at this time. Patient and/or kj2 family updated on plan of care and expected duration. Pain level reassessed. Patient is alert, oriented x 3, equal unlabored respirations, skin warm/dry/pink. 20:00 Reassessment: Patient appears in no apparent distress at this time. Patient and/or kj2 family updated on plan of care and expected duration. Pain level reassessed. Patient is alert, oriented x 3, equal unlabored respirations, skin warm/dry/pink. 21:05 Reassessment: Patient appears in no apparent distress at this time. Patient and/or kj2 family updated on plan of care and expected duration. Pain level reassessed. Patient is alert, oriented x 3, equal unlabored respirations, skin warm/dry/pink. 22:05 Reassessment: Patient appears in no apparent distress at this time. Patient and/or kj2 family updated on plan of care and expected duration. Pain level reassessed. Patient is alert, oriented x 3, equal unlabored respirations, skin warm/dry/pink. 23:01 Reassessment: Patient appears in no apparent distress at this time. Patient and/or kj2 family updated on plan of care and expected duration. Pain level reassessed. Patient is alert, oriented x 3, equal unlabored respirations, skin warm/dry/pink. Vital Signs: 17:38 BP 151 / 90; Pulse 81; Resp 16; Temp 98; Pulse Ox 97% on R/A; Weight 72.57 kg; Height 5 iw ft. 2 in. ; Pain 0/10; 19:00 BP 136 / 104; Pulse 80; Pulse Ox 100% on R/A; kj2 20:21 BP 135 / 106; Pulse 79; Resp 20; Pulse Ox 100% on R/A; kj2 21:06 BP 152 / 114; Pulse 68; Resp 18; Pulse Ox 96% ; kj2 22:00 BP 148 / 88; Pulse 68; Resp 18; Pulse Ox 100% on R/A; kj2 23:01 BP 137 / 74; Pulse 70; Resp 18; Pulse Ox 100% on R/A; kj2 17:38 Body Mass Index 29.26 (72.57 kg, 157.48 cm) iw 17:38 Pain Scale: Adult iw Joceline Coma Score: 18:53 Eye Response: spontaneous(4). Motor Response: obeys commands(6). Verbal Response: katie oriented(5). Total: 15. NIH Stroke Scale Scores: 18:51 NIHSS Score: 0 katie ED Course: 17:28 Patient arrived in ED. jj6 17:37 Triage completed. iw 17:38 Arm band placed on. iw 17:45 Patient has correct armband on for positive identification. Placed in gown. Bed in low rs5 position. Call light in reach. Side rails up X2. 17:50 No provider procedures requiring assistance completed. rs5 18:22 Hernandez Smith MD is Attending Physician. katie 18:52 XRAY Chest (1 view) In Process Unspecified. EDMS 19:00 Provided Education on: call light, fall precautions. kj2 19:14 CT Head C Spine In Process Unspecified. EDMS 19:43 US Carotid Artery Bilateral In Process Unspecified. EDMS 19:47 Inserted saline lock: 20 gauge in right antecubital area, using aseptic technique. vk Blood collected. Flushed with 10 mL NS. 19:54 Initial lab(s) drawn, by ED staff, sent to lab. vk 20:19 Veena Cordova, RN is Primary Nurse. kj2 21:05 Assisted to bathroom. kj2 22:40 Hector Figueroa MD is Referral Physician. cp 23:05 IV discontinued, intact, bleeding controlled, No redness/swelling at site. Pressure kj2 dressing applied. Administered Medications: 20:00 Drug: Ondansetron IVP 4 mg IVP once; over 2 minutes Route: IVP; Site: right antecubital;kj2 23:06 Follow up: Response: No adverse reaction kj2 20:55 Drug: Decadron - Dexamethasone IVP 10 mg IVP once Route: IVP; Site: right antecubital; kj2 23:06 Follow up: Response: No adverse reaction kj2 21:02 Drug: Magnesium Sulfate IVPB 1 grams IVPB once over 1 hrs Route: IVPB; Infused Over: 1 kj2 hrs; Site: right antecubital; 23:06 Follow up: IV Status: Completed infusion; IV Intake: 100ml kj2 21:04 Drug: fentaNYL (PF) IVP 25 mcg IVP once Route: IVP; Site: right antecubital; kj2 23:06 Follow up: Response: No adverse reaction kj2 21:05 Drug: NS 0.9% IV 500 ml IV at bolus once Route: IV; Rate: bolus; Site: right kj2 antecubital; Medication: 19:10 VIS not applicable for this client. rs5 Intake: 23:06 IV: 100ml; Total: 100ml. kj2 Outcome: 22:40 Discharge ordered by . cp 23:04 Discharged to home ambulatory, kj2 23:04 Condition: stable 23:04 Discharge instructions given to patient, Instructed on discharge instructions, follow up and referral plans. Demonstrated understanding of instructions, follow-up care, 23:18 Patient left the ED. kj2 NIH Stroke Scale - NIH Stroke Score Date: 08/02/2024 Time: 18:51 Total Score = 0 10. Dysarthria (speech clarity - read or repeat words) - 0(Normal) 11. Extinction and Inattention (visual/tactile/auditory/spatial/personal) - 0(No abnormality) 1a. Level of Consciousness (LOC) - 0(Alert) 1b. Level of Consciousness (LOC) (Month \T\ Age) - 0(Both) 1c. LOC Commands (Open \T\ Closes Eyes/Costume Maker) - 0(Both) 2. Best Gaze (Lateral Gaze Paresis) - 0(Normal) 3. Visual Field Loss - 0(No visual loss) 4. Facial Palsy - 0(Normal) 5a. Left Arm: Motor (10-second hold) - 0(No drift) 5b. Right Arm: Motor (10-second hold) - 0(No drift) 6a. Left Leg: Motor (5-second hold - always test supine) - 0(No drift) 6b. Right Leg: Motor (5-second hold - always test supine) - 0(No drift) 7. Limb Ataxia (finger/nose \T\ heel/partida - test with eyes open) - 0(Absent) 8. Sensory Loss (pinprick arms/legs/face) - 0(Normal) 9. Best Language: Aphasia (description/naming/reading) - 0(No aphasia) Initials: [facility] Signatures: Dispatcher [employer] Hernandez Rodríguez MD MD cha Williams, Irene, RN RN Hernandez Segal PA PA cp Jeffries, Jennifer jj6 Darrel Blackmon RN RN rs5 Tila Morrow Krystal RN RN kj2
--- NOTE | 2024-08-02 22:41 | EDPHYS ---
Physician Documentation [facility] Name: Annie Zuñiga Age: 74 yrs Sex: Female : 1950 Arrival Date: 08/02/2024 Time: 17:26 Bed 14 Private MD: GUS Physician Hernandez Smith HPI: 08/02 18:51 This 74 yrs old Female presents to ER via Ambulatory with complaints of katie Headache, Upper Ext Tingling/Numbness-Bilateral. 18:51 The patient complains of pain to the top of head and right sikhism. The patient katie describes the headache as aching. Onset: The symptoms/episode began/occurred yesterday. Associated signs and symptoms: The patient has no apparent associated signs or symptoms. Severity of symptoms: At its worst the pain was moderate, in the emergency department the pain is unchanged. Headache History: The patient has had previous headaches and this one is similar to previous episodes. The symptoms are alleviated by nothing. the symptoms are aggravated by nothing. The patient has experienced similar episodes in the past, several times. Historical: - Allergies: 17:37 PENICILLINS; iw - PMHx: 17:37 Thyroid problem; kidney failure; ULCER; Hypertension; High Cholesterol; Gout; Diabetes iw - NIDDM; CVA; - Immunization history:: Adult Immunizations up to date. - Infectious Disease History:: Denies. - Family history:: not pertinent. - Social history:: Smoking status: Patient denies any tobacco usage or history of. ROS: 18:51 Constitutional: Negative for fever, chills, and weight loss, Eyes: Negative for injury, katie pain, redness, and discharge, ENT: Negative for injury, pain, and discharge, Neck: Negative for injury, pain, and swelling, Cardiovascular: Negative for chest pain, palpitations, and edema, Respiratory: Negative for shortness of breath, cough, wheezing, and pleuritic chest pain, Abdomen/GI: Negative for abdominal pain, nausea, vomiting, diarrhea, and constipation, Back: Negative for injury and pain, : Negative for injury, bleeding, discharge, and swelling, MS/Extremity: Negative for injury and deformity, Skin: Negative for injury, rash, and discoloration, Psych: Negative for depression, anxiety, suicide ideation, homicidal ideation, and hallucinations, Allergy/Immunology: Negative for hives, rash, and allergies, Endocrine: Negative for neck swelling, polydipsia, polyuria, polyphagia, and marked weight changes, Hematologic/Lymphatic: Negative for swollen nodes, abnormal bleeding, and unusual bruising, 18:51 Neuro: Positive for headache, Exam: 18:51 Constitutional: This is a well developed, well nourished patient who is awake, alert, katie and in no acute distress. Head/Face: Normocephalic, atraumatic. Eyes: Pupils equal round and reactive to light, extra-ocular motions intact. Lids and lashes normal. Conjunctiva and sclera are non-icteric and not injected. Cornea within normal limits. Periorbital areas with no swelling, redness, or edema. ENT: Nares patent. No nasal discharge, no septal abnormalities noted. Tympanic membranes are normal and external auditory canals are clear. Oropharynx with no redness, swelling, or masses, exudates, or evidence of obstruction, uvula midline. Mucous membranes moist. Neck: Trachea midline, no thyromegaly or masses palpated, and no cervical lymphadenopathy. Supple, full range of motion without nuchal rigidity, or vertebral point tenderness. No Meningismus. Chest/axilla: Normal chest wall appearance and motion. Nontender with no deformity. No lesions are appreciated. Cardiovascular: Regular rate and rhythm with a normal S1 and S2. No gallops, murmurs, or rubs. Normal PMI, no JVD. No pulse deficits. Respiratory: Lungs have equal breath sounds bilaterally, clear to auscultation and percussion. No rales, rhonchi or wheezes noted. No increased work of breathing, no retractions or nasal flaring. Abdomen/GI: Soft, non-tender, with normal bowel sounds. No distension or tympany. No guarding or rebound. No evidence of tenderness throughout. Back: No spinal tenderness. No costovertebral tenderness. Full range of motion. Skin: Warm, dry with normal turgor. Normal color with no rashes, no lesions, and no evidence of cellulitis. MS/ Extremity: Pulses equal, no cyanosis. Neurovascular intact. Full, normal range of motion., bilateral aka Neuro: Awake and alert, GCS 15, oriented to person, place, time, and situation. Cranial nerves II-XII grossly intact. Motor strength 5/5 in all extremities. Sensory grossly intact. Cerebellar exam normal. Normal gait. Psych: Awake, alert, with orientation to person, place and time. Behavior, mood, and affect are within normal limits. 18:51 Neck: External neck: is normal, no acute changes, C-spine: appears grossly normal, no acute changes, Thyroid: appears normal, no acute changes, Trachea: is midline with no obvious abnormalities, no acute changes, ROM/movement: is normal, no acute changes, Lymph nodes: no appreciated lymphadenopathy, 18:51 ECG was reviewed by the Attending Physician. Vital Signs: 17:38 BP 151 / 90; Pulse 81; Resp 16; Temp 98; Pulse Ox 97% on R/A; Weight 72.57 kg; Height 5 iw ft. 2 in. ; Pain 0/10; 19:00 BP 136 / 104; Pulse 80; Pulse Ox 100% on R/A; kj2 20:21 BP 135 / 106; Pulse 79; Resp 20; Pulse Ox 100% on R/A; kj2 21:06 BP 152 / 114; Pulse 68; Resp 18; Pulse Ox 96% ; kj2 22:00 BP 148 / 88; Pulse 68; Resp 18; Pulse Ox 100% on R/A; kj2 23:01 BP 137 / 74; Pulse 70; Resp 18; Pulse Ox 100% on R/A; kj2 17:38 Body Mass Index 29.26 (72.57 kg, 157.48 cm) iw 17:38 Pain Scale: Adult NIH Stroke Scale Scores: 18:51 NIHSS Score: 0 katie [place] Coma Score: 18:53 Eye Response: spontaneous(4). Motor Response: obeys commands(6). Verbal Response: katie oriented(5). Total: 15. MDM: 18:22 Medical Screening Exam initiated katie 18:53 Differential diagnosis: cluster headache, cerebral vascular accident, hypoglycemia, katie hyponatremia, migraine, sinusitis, temporal arteritis, tension headache, trigeminal neuralgia, vasomotor headache. Data reviewed: vital signs, nurses notes, lab test result(s), EKG, radiologic studies, CT scan, doppler, plain films. Consideration of Admission/Observation Escalation of care including admission/observation considered. I considered the following discharge prescriptions or medication management in the emergency department Medications were administered in the Emergency Department. See MAR. Independent interpretation of the following test(s) in the Emergency Department EKG: See my EKG interpretation above. Test considered but Not performed: MRI: no mri brain. Historians other than the Patient: pt well informed. Care significantly affected by the following chronic conditions: Diabetes, Hypertension, Chronic Kidney Disease, thyroid problem, gout, ulcer. Counseling: I had a detailed discussion with the patient and/or guardian regarding the historical points, exam findings, and any diagnostic results supporting the discharge/admit diagnosis, the presence of at least one elevated blood pressure reading (>120/80) during this emergency department visit, lab results, radiology results, the need for outpatient follow up, for definitive care, a family practitioner, a neurologist. 08/02 18:31 Order name: Basic Metabolic Panel; Complete Time: 20:32 [facility] 08/02 20:32 Interpretation: Normal except: NA 135; CL 108; BUN 22; CRE 1.69; GFR 32. cp 08/02 18:31 Order name: CBC with Diff; Complete Time: 19:15 [facility] 08/02 20:33 Interpretation: Normal except: RBC 3.79. cp 08/02 18:31 Order name: LFT's; Complete Time: 20:32 [facility] 12 20:33 Interpretation: Normal except: GLOB 3.9; A/G 0.9. cp 08/02 18:31 Order name: Magnesium; Complete Time: 20:32 katie 12 20:33 Interpretation: Abnormal: MG 1.4. cp 08/02 18:31 Order name: NT PRO-BNP; Complete Time: 20:32 [facility] 08/02 18:31 Order name: PT-INR; Complete Time: 19:15 [facility] 08/02 18:31 Order name: Troponin HS; Complete Time: 20:32 [facility] 08/02 18:31 Order name: XRAY Chest (1 view); Complete Time: 19:15 [facility] 08/02 18:31 Order name: CT Head C Spine; Complete Time: 19:28 [facility] 08/02 18:31 Order name: US Carotid Artery Bilateral; Complete Time: 20:32 [facility] 08/02 18:31 Order name: Cardiac monitoring; Complete Time: 19:47 [facility] 08/02 18:31 Order name: EKG - Nurse/Tech; Complete Time: 20:29 katie 08/02 18:31 Order name: IV Saline Lock; Complete Time: 19:47 [facility] 08/02 18:31 Order name: Labs collected and sent; Complete Time: 19:47 [facility] 08/02 18:31 Order name: O2 Per Protocol; Complete Time: :47 [facility] 08/02 18:31 Order name: O2 Sat Monitoring; Complete Time: :47 [facility] EC:34 Rate is 77 beats/min. Rhythm is regular. [place] interval is normal. QRS interval is normal. cp QT interval is normal. T waves are Inverted in lead aVR. Interpreted by me. Reviewed by me. Administered Medications: 20:00 Drug: Ondansetron IVP 4 mg IVP once; over 2 minutes Route: IVP; Site: right antecubital;kj2 23:06 Follow up: Response: No adverse reaction kj2 20:55 Drug: Decadron - Dexamethasone IVP 10 mg IVP once Route: IVP; Site: right antecubital; kj2 23:06 Follow up: Response: No adverse reaction kj2 21:02 Drug: Magnesium Sulfate IVPB 1 grams IVPB once over 1 hrs Route: IVPB; Infused Over: 1 kj2 hrs; Site: right antecubital; 23:06 Follow up: IV Status: Completed infusion; IV Intake: 100ml kj2 21:04 Drug: fentaNYL (PF) IVP 25 mcg IVP once Route: IVP; Site: right antecubital; kj2 23:06 Follow up: Response: No adverse reaction kj2 21:05 Drug: NS 0.9% IV 500 ml IV at bolus once Route: IV; Rate: bolus; Site: right kj antecubital; Disposition Summary: 08/02/24 22:40 Discharge Ordered Notes: Location: Home cp Problem: new cp Symptoms: have improved cp Condition: Stable cp Diagnosis - Headache cp - Unspecified kidney failure cp Followup: katie - With: Private Physician - When: 2 - 3 days - Reason: Recheck today's complaints, Continuance of care, Re-evaluation by your physician Followup: katie - With: Hector Figueroa MD - When: 2 - 3 days - Reason: Recheck today's complaints, Re-evaluation by your physician Discharge Instructions: - Discharge Summary Sheet katie - General Headache Without Cause katie - Chronic Kidney Disease, Adult, Fdra-oe-Lili katie - General Headache Without Cause, Bhva-iu-Nneb katie Forms: - Medication Reconciliation Form cp - Antibiotic Education cp - Prescription Opioid Use cp - Patient Portal Instructions cp - Leadership Thank You Letter cp Prescriptions: - acetaminophen-codeine 300-30 mg Oral tablet - take 1 tablet ORAL route 4 times per day prn pain; 15 tablet; Refills: 0, [facility] Product Selection Permitted - dexamethasone 4 mg Oral tablet - take 1 tablet ORAL route daily; 3 tablet; Refills: 0, Product Selection [facility] Permitted - ondansetron 4 mg Oral Tablet,disintegrating - take 1 tablet ORAL route every 8 hours prn nausea; 16 tablet; Refills: 0, [facility] Product Selection Permitted NIH Stroke Scale - NIH Stroke Score Date: 08/02/2024 Time: 18:51 Total Score = 0 10. Dysarthria (speech clarity - read or repeat words) - 0(Normal) 11. Extinction and Inattention (visual/tactile/auditory/spatial/personal) - 0(No abnormality) 1a. Level of Consciousness (LOC) - 0(Alert) 1b. Level of Consciousness (LOC) (Month \T\ Age) - 0(Both) 1c. LOC Commands (Open \T\ Closes Eyes/Lockmaker) - 0(Both) 2. Best Gaze (Lateral Gaze Paresis) - 0(Normal) 3. Visual Field Loss - 0(No visual loss) 4. Facial Palsy - 0(Normal) 5a. Left Arm: Motor (10-second hold) - 0(No drift) 5b. Right Arm: Motor (10-second hold) - 0(No drift) 6a. Left Leg: Motor (5-second hold - always test supine) - 0(No drift) 6b. Right Leg: Motor (5-second hold - always test supine) - 0(No drift) 7. Limb Ataxia (finger/nose \T\ heel/partida - test with eyes open) - 0(Absent) 8. Sensory Loss (pinprick arms/legs/face) - 0(Normal) 9. Best Language: Aphasia (description/naming/reading) - 0(No aphasia) Initials: [facility] Addendum: 08/07/2024 12:46 Co-signature as Attending Physician, Hernandez Smith MD I agree with the [facility] assessment and plan of care. Signatures: Dispatcher [employer] Hernandez Rodríguez MD MD cha Williams, Irene, RN RN iw Hernandez Downey PA PA cp Sotelo, Ricky, RN RN rs5 Veena Cordova RN RN kj2 Corrections: (The following items were deleted from the chart) 08/02 18:31 18:31 BASIC METABOLIC PANEL+C.LAB.BRZ ordered. EDMS EDMS 18:31 18:31 CBC+H.LAB.BRZ ordered. EDMS EDMS 18:31 18:31 HEPATIC FUNCTION+C.LAB.BRZ ordered. EDMS EDMS 18:31 18:31 MAGNESIUM+C.LAB.BRZ ordered. EDMS EDMS 18:31 18:31 PROBNP+C.LAB.BRZ ordered. EDMS EDMS 18:31 18:31 PROTIME (+INR)+COAG.LAB.BRZ ordered. EDMS EDMS 18:31 18:31 Troponin High Sensitivity+C.LAB.BRZ ordered. EDMS EDMS 18:31 18:31 Chest Single View+RAD.RAD.BRZ ordered. EDMS EDMS 18:31 18:31 Head C Spine MPR Wo Con+CT.RAD.BRZ ordered. EDMS EDMS 18:31 18:31 Carotid Artery Bilateral+US.RAD.BRZ ordered. EDMS EDMS
[2024-08-02 23:22] VITALS: TEMP 98
[2024-08-02 23:29] VITALS: O2SAT 100
[2024-08-02 23:30] VITALS: BP 137/74
--- NOTE | 2024-08-04 11:10 | EKG ---
Test Date: 2024-08-02 Test Time: 20:25:53 [facility] Case Manager: WILFREDO MEASUREMENT RESULTS: Intervals: Rate: 77 CO: 186 QRSD: 88 QT: 370 QTc: 418 [place]: P: 51 CO: 186 QRS: 16 T: 57 INTERPRETIVE STATEMENTS: Normal sinus rhythm Normal ECG Compared to ECG 07/25/2022 22:55:10 No significant changes Electronically Signed On 08-04-24 11:07:27 [employer]ONT [employer] DRIVER by Nando Molina
== END 2024-08-02 23:18 | disposition home or self-care (01) ==
LOC: ER 17:26
DX: R51.9 Headache, unspecified (principal); N19 Unspecified kidney failure; I10 Essential (primary) hypertension; E11.9 Type 2 diabetes mellitus without complications
CPT/HCPCS: 96365; 93005; 85025; 80048; 36415; 83735; 85610; 80076; 84484; 83880; 70450; 72125; 71045; 93880; 96375; 99284; 96366; J3475; J3010; J1100; J2405; J7040

== ENCOUNTER 2024-09-24 16:06 | Observation (INO) | payer OTHER ==
--- OUTSIDE RECORDS SUMMARY | 2024-09-24 16:11 | XMS REPORT | Continuity of Care Document ---
Author Name Unknown Address [address] [facility] 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 Name Role Phone JIHAN CALIXTO Primary Care Physician Unavailab Jihan Anguiano Attending Clinician Unavailable NICOLAS CAMPA Attending Clinician Unavailab Toño Ch Attending Clinician Unavailable Hollie Cheung Attending Clinician Unavailable Zia Recio Attending Clinician Unavailable Caitlin Wood Attending Clinician Unavailab NELY Hernandez Attending Clinician Unavailable Nely Scott NP Attending Clinician [phone] Doctor Unassigned, [place] Attending Clinician U Rosalinda Richard Attending Clinician Unavailable Nicolas Campa MD Attending Clinician [phone] Only, Adc Test Attending Clinician Unavailable Pob, [facility] Main Attending Clinician UnavailSylvia Mcfadden CRNA Attending Clinician SYLVIA IGLESIAS Attending Clinician UnavailMirian El MD Attending Clinician MIRIAN MONTALVO Attending Clinician Unavailpriscilla schaeffer RADIOLOGY Attending Clinician Unavailable Radiology Attending Clinician Unavailable NICOLAS CAMPA Admitting Clinician Unavailab Jihan Anguiano Admitting Clinician Unavailable Rosalinda Cr Admitting Clinician Unavailable NELY SCOTT Admitting Clinician Unavailable Physician, No Primary or Family Admitting Clinic giovanny Unavailable Nicolas Campa MD Admitting Clinician [phone] JIHAN CALIXTO Admitting Clinician Unavailable Payers Payer Name Policy Type Policy Number Effective Date Expirati on Date Source [facility] mDialog VIENNA [id number] 2021 00:00:00 [facility] MEDIC[facility] ADVANTAGE WELL[employer] 53 [id number] 2020 00:00:00 [facility] Problems Condition Name Condition Details Condition Category Status Onset Date Resolution Date Last Treatment Date Treating Clinician Comments Source Primary hypothyroi dism Primary hypothyroi dism Disease Active 01-22 00:00: 00 [facility] Arm laceration Arm laceration Disease Active 12-06 00:00: 00 [facility] Obesity (BMI 30-39.9) Obesity (BMI 30-39.9) Disease Active 12-06 00:00: 00 [facility] Hypokalemi a Hypokalemi a Disease Active 05-03 00:00: 00 [facility] Sleep disorder breathing Sleep disorder breathing Disease Active 04-06 00:00: 00 [facility] Atypical chest pain Atypical chest pain Disease Active 04-06 00:00: 00 [facility] Gouty arthritis Gouty arthritis Disease Active 03-30 00:00: 00 [facility] Hyperurice jatin Hyperurice jatin Disease Active 03-30 00:00: 00 [facility] Encounter for long-term (current) use of other high-risk medication s Encounter for long-term (current) use of other high-risk medication s Disease Active 03-30 00:00: 00 [facility] Osteoarthr itis, generalize d Osteoarthr itis, generalize d Disease Active 03-30 00:00: 00 [facility] CKD (chronic kidney disease) stage 3, GFR 30-59 ml/min CKD (chronic kidney disease) stage 3, GFR 30-59 ml/min Disease Active 03-30 00:00: 00 [facility] Hypernatre jatin Hypernatre jatin Disease Active 03-02 00:00: 00 [facility] Chronic kidney disease (CKD) stage G3b/A3, moderately decreased glomerular filtration rate (GFR) between 30-44 mL/min/1.7 3 square meter and albuminuri a creatinine ratio greater than 300 mg/g Chronic kidney disease (CKD) stage G3b/A3, moderately decreased glomerular filtration rate (GFR) between 30-44 mL/min/1.7 3 square meter and albuminuri a creatinine ratio greater than 300 mg/g Disease Active 12-26 00:00: 00 [facility] [id number] Chronic gout without tophus, unspecifie d cause, unspecifie d site Problem [facility] [id number] Hypertensi on, unspecifie d type Problem [facility] Impaired memory Impaired memory Problem [facility] Osteoporos is Other osteoporos is Problem [facility] Sinus problem Sinus problem Problem [facility] [id number] Chronic kidney disease, unspecifie d CKD stage Problem [facility] [id number] 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 [id number] Coccygeal pain Problem [facility] [id number] Left leg pain Problem [facility] Abnormal mammogram Abnormal mammogram Problem [facility] [id number] Abnormalit y on screening test Problem [facility] [id number] Peripheral edema Problem [facility] [id number] Left arm pain Problem [facility] [id number] Watery eyes Problem [facility] [id number] Shortness of breath Problem [facility] [id number] Acute pain of left shoulder Problem [facility] [id number] Acute pharyngiti s, unspecifie d etiology Problem [facility] [id number] Swelling Problem [facility] Dyspepsia Dyspepsia Problem [facility] [id number] Chronic kidney disease, stage 4 (severe) Problem [facility] [id number] Postmenopa usal atrophic vaginitis Problem [facility] [id number] Hypomagnes emia Problem [facility] [id number] Suprapubic abdominal pain Problem [facility] [id number] Type 2 diabetes mellitus with diabetic chronic kidney disease Problem [facility] [id number] Seasonal allergies Problem [facility] [id number] History of colon polyps Problem [facility] [id number] Bello's esophagus without dysplasia Problem [facility] 13948969 Other chronic pain Problem [facility] [id number] Type 2 diabetes mellitus with hyperglyce jatin Problem [facility] Hyperlipid aemia Hyperlipem ia Problem [facility] [id number] Hypothyroi dism, unspecifie d type Problem [facility] [id number] Sea sickness, initial encounter Problem [facility] [id number] director long term care (current) use of insulin Problem [facility] [id number] Cough Problem [facility] Allergic rhinitis Allergic rhinitis Problem [facility] Diabetes mellitus without complicati on Diabetes DMII without complicati ons Problem [facility] Essential hypertensi on Essential hypertensi on Problem [facility] Edema Edema Problem [facility] [id number] Hypercalce jatin Problem [facility] Allergies, Adverse Reactions, Alerts Allergy Name Allergy Type Status Severity Reaction(s) Onset Date Inactive Date Treating Clinician Comments Source Penicill ins DA Active MO RASH 2016-08 00:00: 00 [facility] Penicill ins Propensi ty to adverse reaction s Active Rash 02-07 00:00: 00 [facility] PENICILL INS Drug Class Active Rash 02-07 00:00: 00 [facility] Penicill ins Propensi ty to adverse reaction s Active Rash 02-07 00:00: 00 [facility] 0 Drug allergy Active Unknown [facility] Social History Social Habit Start Date Stop Date Quantity Comments Source History of Tobacco Use [facility] Sex Assigned At [facility] Exposure to SARS-CoV-2 (event) 2022-03-30 00:00:00 2022-04-09 12:54:00 Not sure [facility] Alcohol intake 2022-04-09 00:00:00 2022-04-09 00:00:00 Current non-drinker of alcohol (finding) [facility] Tobacco use and exposure 2016-03-07 00:00:00 2016-03-07 00:00:00 Smokeless tobacco non-user [facility] Smoking Status Start Date Stop Date Source Never Smoker [facility] Medications Ordered Medication Name Filled Medication Name Start Date Stop Date Current Medication? Ordering Clinician Indication Dosage Frequency Signature (SIG) Comments Components Source atorvastati n 40 mg tablet 04-09 13:05: 04 Yes 40mg Take 40 mg by mouth at bedtime. [facility] SITagliptin 100 mg tablet 04-09 13:02: 31 Yes 1 tablet [facility] sulfamethox azole-trime thoprim (BACTRIM DS) 800-160 mg per tablet 04-09 12:47: 20 04-09 00:00 :00 No 1 tablet [facility] aspirin (ASPIR-81) 81 mg EC tablet 04-09 12:46: 30 Yes 1 tablet [facility] neomycin-po lymyxin-dex amethasone (MAXITROL) 3.5 mg/g-10,000 unit/g-0.1 % ophthalmic ointment 03-01 14:10: 00 03-01 14:22 :00 No PRN, Starting on Sun03/01/22 at 0910, Until Sun03/01/22 at 09, Routine, Intra-op [facility] dexamethaso ne (DECADRON PHOSPHATE) injection 03-01 14:09: 00 03-01 14:22 :00 No PRN, Starting on Sun03/01/22 at 0909, Until Sun03/01/22 at 0922, Routine, Intra-op [facility] ceFAZolin (ANCEF) injection 03-01 14:09: 00 03-01 14:22 :00 No PRN, Starting on Sun03/01/22 at 0909, Until Sun03/01/22 at 09, JEFF, Intra-op [facility] carbachoL (MIOSTAT) 0.01 % intraocular injection 03-01 14:08: 00 03-01 14:22 :00 No PRN, Starting on Sun03/01/22 at 0908, Until Sun03/01/22 at 09, Routine, Intra-op [facility] chondroitin sulf-sod hyaluronate (DUOVISC VISCO ELASTIC) intraocular injection 03-01 14:08: 00 03-01 14:22 :00 No PRN, Starting on Sun03/01/22 at 0908, Until Sun03/01/22 at 09, Routine, Intra-op [facility] EPINEPHrine 1:1,000 (1 mg/mL) (ADRENALIN) injection 03-01 14:05: 00 03-01 14:22 :00 No PRN, Starting on Sun03/01/22 at 0905, Until Sun03/01/22 at 09, Routine, Intra-op [facility] balanced salt irrig soln comb1 (BSS PLUS) ophthalmic solution 500 mL bag 03-01 14:05: 00 03-01 14:22 :00 No PRN, Starting on Sun03/01/22 at 0905, Until Sun03/01/22 at 09, Routine, Intra-op [facility] sodium chloride (NS) injection 03-01 14:05: 00 03-01 14:22 :00 No PRN, Starting on Sun03/01/22 at 0905, Until Sun03/01/22 at 09, Routine, Intra-op [facility] water for irrigation irrigation solution 03-01 14:02: 00 03-01 14:22 :00 No PRN, Starting on Sun03/01/22 at 0902, Until Sun03/01/22 at 09, Routine, Intra-op [facility] Hyaluronida se, Human Recomb. (HYLENEX) injection 03-01 13:58: 00 03-01 14:22 :00 No PRN, Starting on Sun03/01/22 at 0858, Until Sun03/01/22 at 0922, Routine, Intra-op [facility] eye block syringe 11 mL 03-01 13:58: 00 03-01 14:22 :00 No PRN, Starting on Sun03/01/22 at 0858, Until Sun03/01/22 at 0922, Intra-op [facility] cyclopent 1%-tropic 1%-phenyl 2.5%-ketor 0.5% (MYDRIATIC #5) ophthalmic solution syringe 0.5 mL 03-01 13:00: 00 03-01 12:49 :00 No .5mL 0.5 mL, Right Eye, ONCE, 1 dose, On Sun03/01/22 at 0800, Routine, DSU Pre-op [facility] lactated ringers IV infusion 1,000 mL 03-01 13:00: 00 03-01 12:52 :00 No 1000mL at 42 mL/hr, 1,000 mL, IV Infusion, ONCE, 1 dose, On Sun03/01/22 at 0800, Routine, DSU Pre-op [facility] ASPIRIN 81 MG ORAL TAB 03-01 09:55: 29 Yes 81mg Take 81 mg by mouth daily. [facility] insulin glarginejovananlog (LANTUS SC) 03-01 09:55: 29 Yes 50U inject 50 Units under the skin daily. Each morning [facility] neomycin-po lymyxin-dex amethasone (MAXITROL) 3.5 mg/g-10,000 unit/g-0.1 % ophthalmic ointment 02-15 14:31: 00 02-15 14:34 :14 No PRN, Starting on Sun02/15/22 at 0931, Until Sun02/15/22 at 0934, Routine, Intra-op [facility] sodium chloride (NS) injection 02-15 14:28: 00 02-15 14:34 :14 No PRN, Starting on Sun02/15/22 at 0928, Until Sun02/15/22 at 0934, Routine, Intra-op [facility] dexamethaso ne (DECADRON PHOSPHATE) injection 02-15 14:28: 00 02-15 14:34 :14 No PRN, Starting on Sun02/15/22 at 0928, Until Sun02/15/22 at 0934, Routine, Intra-op [facility] ceFAZolin (ANCEF) injection 02-15 14:28: 00 02-15 14:34 :14 No PRN, Starting on Sun02/15/22 at 0928, Until Sun02/15/22 at 0934, JEFF, Intra-op [facility] carbachoL (MIOSTAT) 0.01 % intraocular injection 02-15 14:26: 00 02-15 14:34 :14 No PRN, Starting on Sun02/15/22 at 0926, Until Sun02/15/22 at 0934, Routine, Intra-op [facility] EPINEPHrine 1:1,000 (1 mg/mL) (ADRENALIN) injection 02-15 14:14: 00 02-15 14:34 :14 No PRN, Starting on Sun02/15/22 at 0914, Until Sun02/15/22 at 09, Routine, Intra-op [facility] chondroitin sulf-sod hyaluronate (DUOVISC VISCO ELASTIC) intraocular injection 02-15 14:14: 00 02-15 14:34 :14 No PRN, Starting on Sun02/15/22 at 0914, Until Sun02/15/22 at 0934, Routine, Intra-op [facility] balanced salt irrig soln comb1 (BSS PLUS) ophthalmic solution 500 mL bag 02-15 14:14: 00 02-15 14:34 :14 No PRN, Starting on Sun02/15/22 at 0914, Until Sun02/15/22 at 0934, Routine, Intra-op [facility] water for irrigation irrigation solution 02-15 14:11: 00 02-15 14:34 :14 No PRN, Starting on Sun02/15/22 at 0911, Until Sun02/15/22 at 0934, Routine, Intra-op [facility] Hyaluronida se, Human Recomb. (HYLENEX) injection 02-15 14:07: 00 02-15 14:34 :14 No PRN, Starting on Sun02/15/22 at 0907, Until Sun02/15/22 at 0934, Routine, Intra-op [facility] eye block syringe 11 mL 02-15 14:07: 00 02-15 14:34 :14 No PRN, Starting on Sun02/15/22 at 0907, Until Sun02/15/22 at 0934, Intra-op [facility] cyclopent 1%-tropic 1%-phenyl 2.5%-ketor 0.5% (MYDRIATIC #5) ophthalmic solution syringe 0.5 mL 02-15 12:45: 00 02-15 12:48 :00 No .5mL 0.5 mL, Left Eye, ONCE, 1 dose, On Sun02/15/22 at 0745, Routine, DSU Pre-op [facility] lactated ringers IV infusion 1,000 mL 02-15 12:45: 00 02-15 12:59 :00 No 1000mL at 42 mL/hr, 1,000 mL, IV Infusion, ONCE, 1 dose, On Sun02/15/22 at 0745, Routine, DSU Pre-op [facility] ASPIRIN 81 MG ORAL TAB 02-15 10:11: 36 Yes 81mg Take 81 mg by mouth daily. [facility] insulin glargine,jovan pandeyrecGretaanlog (LANTUS SC) 02-15 10:11: 36 Yes 50U inject 50 Units under the skin daily. Each morning [facility] omeprazole 20 mg capsule 02-09 00:00: 00 Yes 20mg Take 20 mg by mouth in the morning and 20 mg in the evening. [facility] Omeprazole 20 MG Omeprazole 20 MG 02-09 [...] t} TID metroNIDAZ OLE 500 MG Clarithromy amrciano 500 MG Clarithromy marciano 500 MG 02-09 00:00: 00 02-19 00:00 :00 No 1{table t} BID Clarithrom ycin 500 MG metroNIDAZO LE 500 MG metroNIDAZO LE 500 MG 02-09 00:00: 00 02-19 00:00 :00 No 1{table t} TID metroNIDAZ OLE 500 MG insulin glargine,jovan pandeyrecGretaanlog (LANTUS SC) 02-08 11:13: 06 Yes 50U inject 50 Units under the skin daily. Each morning [facility] ASPIRIN 81 MG ORAL TAB 02-08 11:06: 37 Yes 81mg Take 81 mg by mouth daily. [facility] Magnesium Oxide 500 mg Cap 2022-0 02-08 00:00: 00 Yes as directed [facility] Magnesium Oxide 500 MG Magnesium Oxide 500 [...] area(s) 2 (two) times daily as needed. [facility] Acyclovir 5 % Acyclovir 5 % 2021-0 [...] 00 Yes 2 gram per vaginal [facility] Estrace 0.1 MG/GM Estrace 0.1 MG/GM 2020-0 [...] 11-07 00:00: 00 No Lancets - Pen [place] 32G X 4 MM Pen [place] 32G X 4 MM 0 08-29 00:00: 00 No [place] 32G X 4 MM [place] 32G X 4 MM [place] 32G X 4 MM 0 08-29 00:00: 00 No [place] 32G X 4 MM [place] 32G X 4 MM [place] 32G X 4 MM 0 08-29 00:00: 00 No [place] 32G X 4 MM [place] 32G X 4 MM [place] 32G X 4 MM 0 08-29 00:00: 00 No [place] 32G X 4 MM [place] 32G X 4 MM [place] 32G X 4 MM 0 08-29 00:00: 00 No [place] 32G X 4 MM [place] 32G X 4 MM [place] 32G X 4 MM 0 08-29 00:00: 00 No [place] 32G X 4 MM [place] 32G X 4 MM [place] 32G X 4 MM 0 08-29 00:00: 00 No [place] 32G X 4 MM [place] 32G X 4 MM [place] 32G X 4 MM 0 08-29 00:00: 00 No [place] 32G X 4 MM [place] 32G X 4 MM [place] 32G X 4 MM 0 08-29 00:00: 00 No [place] 32G X 4 MM [place] 32G X 4 MM [place] 32G X 4 MM 0 08-29 00:00: 00 No [place] 32G X 4 MM [place] 32G X 4 MM 0 08-29 00:00: 00 No [place] 32G X 4 MM [place] 32G X 4 MM [place] 32G X 4 MM 0 08-29 00:00: 00 No [place] 32G X 4 MM [place] 32G X 4 MM [place] 32G X 4 MM 0 08-29 00:00: 00 No [place] 32G X 4 MM [place] 32G X 4 MM [place] 32G X 4 MM 0 08-29 00:00: 00 No [place] 32G X 4 MM [place] 32G X 4 MM [place] 32G X 4 MM 0 08-29 00:00: 00 No [place] 32G X 4 MM [place] 32G X 4 MM [place] 32G X 4 MM 0 08-29 00:00: 00 No [place] 32G X 4 MM [place] 32G X 4 MM [place] 32G X 4 MM 0 08-29 00:00: 00 No [place] 32G X 4 MM colchicine (COLCRYS) 0.6 mg tablet 08-13 00:00: 00 Yes .6mg Take 1 tablet by mouth daily. [facility] Blood-Gluco [facility] Meter (FREESTYLE LITE METER) Kit 01-29 00:00: 00 Yes Use as directed, DX:E11.9 [facility] blood sugar diagnostic (FREESTYLE LITE STRIPS) strip 01-29 00:00: 00 Yes Use as directed, BID, Dx;E11.9 [facility] traMADOL (ULTRAM) 50 mg tablet 10-01 00:00: 00 Yes 50mg Take 1 tablet by mouth every 6 (six) hours as needed for Pain (scale 4-6). Davin Bowling PA-C / Eliel Bejarano MD JOLANTA# [id number] DPS# [id number] Lic.# [id number] NPI# [id number] [facility] lisinopril (PRINIVIL,Z ESTRIL) 5 mg tablet 2015-08 00:00: 00 Yes [id number] 5mg Take 1 tablet by mouth daily. [facility] acetaminoph en-codeine (TYLENOL #3) 300-30 mg tablet 01-10 00:00: 00 Yes 1{tbl} Take 1 tablet by mouth at bedtime. [facility] Metoprolol Tartrate 25 mg Metoprolol Tartrate 25 [...] Millender 45 units [facility] Aspir-81 81 MG Aspir-81 81 [...] UNIT/ML No QD Lantus SoloStar 100 UNIT/ML Allopurinol 100 MG Allopurinol 100 MG 05-07 [...] HIGH DOSE OVER 65 2021-06-02 15:49:00 Completed [facility] FLUZONE HIGH DOSE OVER 65 FLUZONE HIGH DOSE OVER 65 2021-06-02 15:49:00 Completed [facility] FLUZONE HIGH DOSE OVER 65 FLUZONE HIGH DOSE OVER 65 2021-06-02 15:49:00 Completed [facility] FLUZONE HIGH DOSE OVER 65 FLUZONE HIGH DOSE OVER 65 2021-06-02 15:49:00 Completed [facility] FLUZONE HIGH DOSE OVER 65 FLUZONE HIGH DOSE OVER 65 2021-06-02 15:49:00 Completed [facility] FLUZONE HIGH DOSE OVER 65 FLUZONE HIGH DOSE OVER 65 2021-06-02 15:49:00 Completed [facility] FLUZONE HIGH DOSE OVER 65 FLUZONE HIGH DOSE OVER 65 2021-06-02 15:49:00 Completed [facility] FLUZONE HIGH DOSE OVER 65 FLUZONE HIGH DOSE OVER 65 2021-06-02 15:49:00 Completed [facility] FLUZONE HIGH DOSE OVER 65 FLUZONE HIGH DOSE OVER 65 2021-06-02 15:49:00 Completed [facility] FLUZONE HIGH DOSE OVER 65 FLUZONE HIGH DOSE OVER 65 2021-06-02 15:49:00 Completed [facility] FLUZONE HIGH DOSE OVER 65 FLUZONE HIGH DOSE OVER 65 2021-06-02 15:49:00 Completed [facility] FLUZONE HIGH DOSE OVER 65 FLUZONE HIGH DOSE OVER 65 2021-06-02 15:49:00 Completed [facility] FLUZONE HIGH DOSE OVER 65 FLUZONE HIGH DOSE OVER 65 2021-06-02 15:49:00 Completed [facility] Moderna COVID-19 Vaccine Moderna COVID-19 Vaccine 2021-01-18 15:42:00 Completed [facility] Moderna COVID-19 Vaccine Moderna COVID-19 Vaccine 2021-01-18 15:42:00 Completed [facility] Moderna COVID-19 Vaccine Moderna COVID-19 Vaccine 2021-01-18 15:42:00 Completed [facility] Moderna COVID-19 Vaccine Moderna COVID-19 Vaccine 2021-01-18 15:42:00 Completed [facility] Moderna COVID-19 Vaccine Moderna COVID-19 Vaccine 2021-01-18 15:42:00 Completed [facility] Moderna COVID-19 Vaccine Moderna COVID-19 Vaccine 2021-01-18 15:42:00 Completed [facility] Moderna COVID-19 Vaccine Moderna COVID-19 Vaccine 2021-01-18 15:42:00 Completed [facility] Moderna COVID-19 Vaccine Moderna COVID-19 Vaccine 2021-01-18 15:42:00 Completed [facility] Moderna COVID-19 Vaccine Moderna COVID-19 Vaccine 2021-01-18 15:42:00 Completed [facility] Moderna COVID-19 Vaccine Moderna COVID-19 Vaccine 2021-01-18 15:42:00 Completed [facility] Moderna COVID-19 Vaccine Moderna COVID-19 Vaccine 2021-01-18 15:42:00 Completed [facility] Moderna COVID-19 Vaccine Moderna COVID-19 Vaccine 2021-01-18 15:42:00 Completed [facility] Moderna COVID-19 Vaccine Moderna COVID-19 Vaccine 2020-12-30 08:59:00 Completed [facility] Moderna COVID-19 Vaccine Moderna COVID-19 Vaccine 2020-12-30 08:59:00 Completed [facility] Moderna COVID-19 Vaccine Moderna COVID-19 Vaccine 2020-12-30 08:59:00 Completed [facility] Moderna COVID-19 Vaccine Moderna COVID-19 Vaccine 2020-12-30 08:59:00 Completed [facility] Moderna COVID-19 Vaccine Moderna COVID-19 Vaccine 2020-12-30 08:59:00 Completed [facility] Moderna COVID-19 Vaccine Moderna COVID-19 Vaccine 2020-12-30 08:59:00 Completed [facility] Moderna COVID-19 Vaccine Moderna COVID-19 Vaccine 2020-12-30 08:59:00 Completed [facility] Moderna COVID-19 Vaccine Moderna COVID-19 Vaccine 2020-12-30 08:59:00 Completed [facility] Moderna COVID-19 Vaccine Moderna COVID-19 Vaccine 2020-12-30 08:59:00 Completed [facility] Moderna COVID-19 Vaccine Moderna COVID-19 Vaccine 2020-12-30 08:59:00 Completed [facility] Moderna COVID-19 Vaccine Moderna COVID-19 Vaccine 2020-12-30 08:59:00 Completed [facility] Moderna COVID-19 Vaccine Moderna COVID-19 Vaccine 2020-12-30 08:59:00 Completed [facility] Moderna COVID-19 Vaccine Moderna COVID-19 Vaccine 2020-12-30 08:59:00 Completed [facility] Moderna COVID-19 Vaccine Moderna COVID-19 Vaccine 2020-12-30 08:59:00 Completed [facility] Moderna COVID-19 Vaccine Moderna COVID-19 Vaccine 2020-12-28 15:42:00 Completed [facility] Moderna COVID-19 Vaccine Moderna COVID-19 Vaccine 2020-12-28 15:42:00 Completed [facility] Influenza Virus Vaccine Quad IM 3+ YRS 2016-05-17 00:00:00 Completed [facility] Influenza Virus Vaccine Quad IM 3+ YRS 2016-05-17 00:00:00 Completed [facility] Influenza Virus Vaccine Quad IM 3+ YRS 2016-05-17 00:00:00 Completed [facility] Influenza Virus Vaccine Quad IM 3+ YRS 2016-05-17 00:00:00 Completed [facility] Influenza Virus Vaccine Quad IM 3+ YRS 2016-05-17 00:00:00 Completed [facility] Influenza Virus Vaccine Quad IM 3+ YRS 2016-05-17 00:00:00 Completed [facility] Influenza Virus Vaccine Quad IM 3+ YRS 2016-05-17 00:00:00 Completed [facility] Influenza Virus Vaccine Quad IM 3+ YRS 2016-05-17 00:00:00 Completed [facility] [facility] Influenza Virus Vaccine Quad IM 3+ YRS 2016-05-17 00:00:00 Completed [facility] Influenza Virus Vaccine Quad IM 3+ YRS 2016-05-17 00:00:00 Completed [facility] Influenza Virus Vaccine Quad IM 3+ YRS 2016-05-17 00:00:00 Completed [facility] Influenza Virus Vaccine Quad IM 3+ YRS 2016-05-17 00:00:00 Completed [facility] Influenza Virus Vaccine Quad IM 3+ YRS 2015-05-11 00:00:00 Completed [facility] Pneumococcal Polysaccharide, PPSV23 (PNEUMOVAX) 2015-05-11 00:00:00 Completed [facility] Influenza Virus Vaccine Quad IM 3+ YRS 2015-05-11 00:00:00 Completed [facility] Pneumococcal Polysaccharide, PPSV23 (PNEUMOVAX) 2015-05-11 00:00:00 Completed [facility] Influenza Virus Vaccine Quad IM 3+ YRS 2015-05-11 00:00:00 Completed [facility] Pneumococcal Polysaccharide, PPSV23 (PNEUMOVAX) 2015-05-11 00:00:00 Completed [facility] Influenza Virus Vaccine Quad IM 3+ YRS 2015-05-11 00:00:00 Completed [facility] Pneumococcal Polysaccharide, PPSV23 (PNEUMOVAX) 2015-05-11 00:00:00 Completed [facility] Influenza Virus Vaccine Quad IM 3+ YRS 2015-05-11 00:00:00 Completed [facility] Pneumococcal Polysaccharide, PPSV23 (PNEUMOVAX) 2015-05-11 00:00:00 Completed [facility] Influenza Virus Vaccine Quad IM 3+ YRS 2015-05-11 00:00:00 Completed [facility] Pneumococcal Polysaccharide, PPSV23 (PNEUMOVAX) 2015-05-11 00:00:00 Completed [facility] Influenza Virus Vaccine Quad IM 3+ YRS 2015-05-11 00:00:00 Completed [facility] Pneumococcal Polysaccharide, PPSV23 (PNEUMOVAX) 2015-05-11 00:00:00 Completed [facility] Influenza Virus Vaccine Quad IM 3+ YRS 2015-05-11 00:00:00 Completed [facility] Pneumococcal Polysaccharide, PPSV23 (PNEUMOVAX) 2015-05-11 00:00:00 Completed [facility] Influenza Virus Vaccine Quad IM 3+ YRS 2015-05-11 00:00:00 Completed [facility] Pneumococcal Polysaccharide, PPSV23 (PNEUMOVAX) 2015-05-11 00:00:00 Completed [facility] Influenza Virus Vaccine Quad IM 3+ YRS 2015-05-11 00:00:00 Completed [facility] Pneumococcal Polysaccharide, PPSV23 (PNEUMOVAX) 2015-05-11 00:00:00 Completed [facility] Influenza Virus Vaccine Quad IM 3+ YRS 2015-05-11 00:00:00 Completed [facility] Pneumococcal Polysaccharide, PPSV23 (PNEUMOVAX) 2015-05-11 00:00:00 Completed [facility] Influenza Virus Vaccine Quad IM 3+ YRS 2015-05-11 00:00:00 Completed [facility] Pneumococcal Polysaccharide, PPSV23 (PNEUMOVAX) 2015-05-11 00:00:00 Completed [facility] Zoster(Zostavax)( ingles) 2015-02-11 00:00:00 Completed [facility] Zoster(Zostavax)( ingles) 2015-02-11 00:00:00 Completed [facility] Zoster(Zostavax)( ingles) 2015-02-11 00:00:00 Completed [facility] Zoster(Zostavax)( ingles) 2015-02-11 00:00:00 Completed [facility] Zoster(Zostavax)([facility]) 2015-02-11 00:00:00 Completed [facility] Zoster(Zostavax)([facility]) 2015-02-11 00:00:00 Completed [facility] Zoster(Zostavax)([facility]) 2015-02-11 00:00:00 Completed [facility] Zoster(Zostavax)([facility]) 2015-02-11 00:00:00 Completed [facility] Zoster(Zostavax)([facility]) 2015-02-11 00:00:00 Completed [facility] Zoster(Zostavax)([facility]) 2015-02-11 00:00:00 Completed [facility] Zoster(Zostavax)([facility]) 2015-02-11 00:00:00 Completed [facility] Zoster(Zostavax)([facility]) 2015-02-11 00:00:00 Completed [facility] Moderna COVID-19 Vaccine Moderna COVID-19 Vaccine Unknown Completed [facility] FLUZONE HIGH DOSE OVER 65 FLUZONE HIGH DOSE OVER 65 Unknown Completed [facility] Vital Signs Vital Name Observation Time Observation Value Comments S ource Systolic blood pressure 2022-04-09 18:00:00 140 mm[Hg] [facility] Diastolic blood pressure 2022-04-09 18:00:00 82 mm[Hg] [facility] Heart rate 2022-04-09 18:00:00 63 /min [facility] Respiratory rate 2022-04-09 18:00:00 18 /min [facility] Oxygen saturation in Arterial blood by Pulse oximetry 2022-04-09 18:00:00 98 /min [facility] Body temperature 2022-04-09 17:41:00 36.56 Seda [facility] Body weight 2022-04-09 17:41:00 78.472 kg [facility] BMI 2022-04-09 17:41:00 31.63 kg/m2 [facility] height 2022-03-27 09:40:00 63.50 [in_i] Com [facility] weight 2022-03-27 09:40:00 175.0 [lb_av] Co [facility] temperature 2022-03-27 09:40:00 97.3 [degF] Com [facility] bmi 2022-03-27 09:40:00 30.51 kg/m2 Comm on [facility] oximetry 2022-03-27 09:40:00 98 % Commo n [facility] respiratory rate 2022-03-27 09:40:00 16 /min [facility] blood pressure systolic 2022-03-27 09:40:00 132 mm[Hg] [facility] blood pressure diastolic 2022-03-27 09:40:00 68 mm[Hg] [facility] height 2022-03-14 10:00:00 64.00 [in_i] Com [facility] weight 2022-03-14 10:00:00 174.4 [lb_av] Co [facility] temperature 2022-03-14 10:00:00 97.2 [degF] Com [facility] bmi 2022-03-14 10:00:00 29.93 kg/m2 Comm on [facility] oximetry 2022-03-14 10:00:00 96 % Commo n [facility] respiratory rate 2022-03-14 10:00:00 16 /min [facility] blood pressure systolic 2022-03-14 10:00:00 136 mm[Hg] [facility] blood pressure diastolic 2022-03-14 10:00:00 79 mm[Hg] [facility] Respiratory rate 2022-03-01 14:42:00 18 /min [facility] Heart rate 2022-03-01 14:41:00 70 /min [facility] Oxygen saturation in Arterial blood by Pulse oximetry 2022-03-01 14:41:00 99 /min [facility] Systolic blood pressure 2022-03-01 14:40:00 152 mm[Hg] [facility] Diastolic blood pressure 2022-03-01 14:40:00 80 mm[Hg] [facility] Body temperature 2022-03-01 14:25:00 36.83 Seda [facility] Body height 2022-02-22 18:55:00 157.5 cm [facility] Body weight 2022-02-22 18:55:00 78.9 kg [facility] BMI 2022-02-22 18:55:00 31.81 kg/m2 [facility] Systolic blood pressure 2022-03-01 12:51:00 161 mm[Hg] [facility] Diastolic blood pressure 2022-03-01 12:51:00 93 mm[Hg] [facility] Heart rate 2022-03-01 12:51:00 75 /min [facility] Body temperature 2022-03-01 12:51:00 36.33 Seda [facility] Respiratory rate 2022-03-01 12:51:00 14 /min [facility] Oxygen saturation in Arterial blood by Pulse oximetry 2022-03-01 12:51:00 98 /min [facility] Body height 2022-02-22 18:55:00 157.5 cm [facility] Body weight 2022-02-22 18:55:00 78.9 kg [facility] BMI 2022-02-22 18:55:00 31.81 kg/m2 [facility] Systolic blood pressure 2022-02-15 14:49:00 164 mm[Hg] [facility] Diastolic blood pressure 2022-02-15 14:49:00 89 mm[Hg] [facility] Heart rate 2022-02-15 14:49:00 70 /min [facility] Respiratory rate 2022-02-15 14:49:00 10 /min [facility] Oxygen saturation in Arterial blood by Pulse oximetry 2022-02-15 14:49:00 99 /min [facility] Body temperature 2022-02-15 12:46:00 36.56 Seda [facility] Body height 2022-02-03 15:18:00 157.5 cm [facility] Body weight 2022-02-03 15:18:00 78.9 kg [facility] BMI 2022-02-03 15:18:00 31.81 kg/m2 [facility] Systolic blood pressure 2022-02-15 12:53:00 160 mm[Hg] [facility] Diastolic blood pressure 2022-02-15 12:53:00 89 mm[Hg] [facility] Heart rate 2022-02-15 12:46:00 80 /min [facility] Body temperature 2022-02-15 12:46:00 36.56 Seda [facility] Respiratory rate 2022-02-15 12:46:00 15 /min [facility] Oxygen saturation in Arterial blood by Pulse oximetry 2022-02-15 12:46:00 99 /min [facility] Body height 2022-02-03 15:18:00 157.5 cm [facility] Body weight 2022-02-03 15:18:00 78.9 kg [facility] BMI 2022-02-03 15:18:00 31.81 kg/m2 [facility] height 2022-01-02 09:00:00 64.00 [in_i] Com mon [facility] weight 2022-01-02 09:00:00 172.2 [lb_av] Co mmon [facility] temperature 2022-01-02 09:00:00 97.2 [degF] Com mon [facility] bmi 2022-01-02 09:00:00 29.55 kg/m2 Comm on [facility] oximetry 2022-01-02 09:00:00 98 % Commo n [facility] respiratory rate 2022-01-02 09:00:00 16 /min [facility] blood pressure systolic 2022-01-02 09:00:00 117 mm[Hg] [facility] blood pressure diastolic 2022-01-02 09:00:00 72 mm[facility]Hg] [facility] height 2021-11-08 13:00:00 64.00 [in_i] Com [facility] weight 2021-11-08 13:00:00 170.6 [lb_av] Co mmon [facility] temperature 2021-11-08 13:00:00 97.7 [degF] Com [facility] bmi 2021-11-08 13:00:00 29.28 kg/m2 Comm on [facility] oximetry 2021-11-08 13:00:00 98 % Commo n [facility] respiratory rate 2021-11-08 13:00:00 18 /min [facility] blood pressure systolic 2021-11-08 13:00:00 139 mm[Hg] [facility] blood pressure diastolic 2021-11-08 13:00:00 80 mm[Hg] [facility] height 2021-10-07 14:20:00 64.00 [in_i] Com [facility] weight 2021-10-07 14:20:00 170.2 [lb_av] Co mmon [facility] temperature 2021-10-07 14:20:00 97.3 [degF] Com [facility] bmi 2021-10-07 14:20:00 29.21 kg/m2 Comm on [facility] oximetry 2021-10-07 14:20:00 100 % Commo n [facility] respiratory rate 2021-10-07 14:20:00 16 /min [facility] blood pressure systolic 2021-10-07 14:20:00 121 mm[Hg] [facility] blood pressure diastolic 2021-10-07 14:20:00 86 mm[Hg] [facility] height 2021-10-07 14:00:00 64.00 [in_i] Com [facility] weight 2021-10-07 14:00:00 170.2 [lb_av] Co [facility] temperature 2021-10-07 14:00:00 97.3 [degF] Com [facility] bmi 2021-10-07 14:00:00 29.21 kg/m2 Comm on [facility] oximetry 2021-10-07 14:00:00 100 % Commo n [facility] respiratory rate 2021-10-07 14:00:00 16 /min [facility] blood pressure systolic 2021-10-07 14:00:00 121 mm[Hg] [facility] blood pressure diastolic 2021-10-07 14:00:00 86 mm[Hg] [facility] height 2021-07-14 13:00:00 64.00 [in_i] Com [facility] weight 2021-07-14 13:00:00 170.4 [lb_av] Co [facility] temperature 2021-07-14 13:00:00 98.0 [degF] Com [facility] bmi 2021-07-14 13:00:00 29.25 kg/m2 Comm on [facility] oximetry 2021-07-14 13:00:00 97 % Commo n [facility] respiratory rate 2021-07-14 13:00:00 17 /min Common [facility] blood pressure systolic 2021-07-14 13:00:00 139 mm[Hg] [facility] blood pressure diastolic 2021-07-14 13:00:00 79 mm[Hg] [facility] height 2021-06-06 16:20:00 64.00 [in_i] Com [facility] weight 2021-06-06 16:20:00 173.0 [lb_av] Co on [facility] temperature 2021-06-06 16:20:00 97.2 [degF] Com [facility] bmi 2021-06-06 16:20:00 29.69 kg/m2 Comm on [facility] oximetry 2021-06-06 16:20:00 97 % Commo n [facility] respiratory rate 2021-06-06 16:20:00 18 /min [facility] blood pressure systolic 2021-06-06 16:20:00 120 mm[Hg] [facility] blood pressure diastolic 2021-06-06 16:20:00 85 mm[Hg] [facility] height 2021-06-02 15:40:00 64.00 [in_i] Com [facility] weight 2021-06-02 15:40:00 170.8 [lb_av] Co [facility] temperature 2021-06-02 15:40:00 97.1 [degF] Com [facility] bmi 2021-06-02 15:40:00 29.31 kg/m2 Comm on [facility] oximetry 2021-06-02 15:40:00 96 % Commo n [facility] respiratory rate 2021-06-02 15:40:00 18 /min Common [facility] blood pressure systolic 2021-06-02 15:40:00 124 mm[Hg] [facility] blood pressure diastolic 2021-06-02 15:40:00 80 mm[Hg] [facility] height 2021-04-13 11:00:00 64.00 [in_i] Com [facility] weight 2021-04-13 11:00:00 174 [lb_av] Comm on [facility] bmi 2021-04-13 11:00:00 29.86 kg/m2 Comm on [facility] Procedures Procedure Date / Time Performed Performing Clinician Source CT TRAUMA HEAD WO CONTRAST 2022-04-09 18:18:44 Nely Scott [facility] CT TRAUMA CERVICAL SPINE WO CONTRAST 2022-04-09 18:18:44 Nely Scott [facility] CONSENT/REFUSAL FOR DIAGNOSI S AND TREATMENT 2022-04-09 17:37:03 Doctor Unassigned, [place] [facility] PHACOEMULSIFICATION OF CATARACT WITH INTRAOCULAR LENS IMPLANT 2022-03-01 13:48:00 Nicolas Campa [facility] POCT GLUCOSE (AUTOMATED) 2022-03-01 12:47:00 Nicolas Campa [facility] POCT GLUCOSE (AUTOMATED) 2022-03-01 12:47:00 Nicolas Campa [facility] PATIENT QUESTIONNAIRE 2022-03-01 05:01:00 Doctor Unassigned, [place] [facility] DAY SURGERY - ADC 2022-03-01 05:01:00 Doctor Unassigned, [place] [facility] CONSENT/REFUSAL FOR DIAGNOSI S AND TREATMENT 2022-02-27 20:46:38 Doctor Unassigned, [place] [facility] CONSENT/REFUSAL FOR DIAGNOSI S AND TREATMENT 2022-02-27 20:46:38 Doctor Unassigned, [place] [facility] ASSIGNMENT OF BENEFITS 2022-02-27 20:46:13 Doctor Unassigned, [place] [facility] ASSIGNMENT OF BENEFITS 2022-02-27 20:46:13 Doctor Unassigned, [place] [facility] PHACOEMULSIFICATION OF CATARACT WITH INTRAOCULAR LENS IMPLANT 2022-02-15 13:55:00 Nicolas Campa [facility] POCT GLUCOSE (AUTOMATED) 2022-02-15 12:58:00 Nicolas Campa [facility] POCT GLUCOSE (AUTOMATED) 2022-02-15 12:58:00 Nicolas Campa [facility] ASSIGNMENT OF BENEFITS 2022-02-11 13:57:55 Doctor Unassigned, [place] [facility] CBC WITH DIFF 2022-02-08 18:45:00 Nicolas Campa [facility] Encounters Start Date/Time End Date/Time Encounter Type Admission Type Attending [facility] Facility Care Department Encounter ID Source 2024-09-19 15:51:00 Outpatient Claudio Rowe [facility] [id number] [facility] 2023-11-13 15:47:00 Outpatient CALIXTO, Na STLMLC STLMLC [id number] [facility] 2022-07-28 08:19:00 Outpatient Calixto, Na STLMLC STLMLC [id number] [facility] 2022-06-21 10:56:01 Outpatient Calixto, Na STLMLC STLMLC [id number] [facility] 2022-06-12 10:53:02 Outpatient Calixto, Na STLMLC STLMLC [id number] [facility] 2022-03-23 09:00:00 Outpatient Calixto, Na STLMLC STLMLC [id number] [facility] 2022-01-25 09:23:50 Outpatient NICOLAS FRAIAS [facility] OPH [id number] [facility] 2021-12-29 07:59:00 Outpatient Calixto, Na STLMLC STLMLC [id number] [facility] 2021-12-08 11:16:00 Outpatient Calixto, Na STLMLC STLMLC [id number] [facility] 2021-11-07 11:56:01 Outpatient Calixto, Na STLMLC STLMLC [id number] [facility] 2021-10-25 15:44:01 Outpatient Calixto, Na STLMLC STLMLC [id number] [facility] 2021-10-06 10:20:01 Outpatient Calixto, Na STLMLC STLMLC [id number] [facility] 2021-09-07 12:58:36 Outpatient Calixto, Na STLMLC STLMLC [id number] [facility] 2021-09-07 12:50:14 Outpatient Sahara Na STLMLC STLMLC [id number] [facility] 2021-09-07 12:45:37 Outpatient Sahara Na STLMLC STLMLC [id number] [facility] 2021-09-07 12:36:24 Outpatient Sahara Na STLMLC STLMLC [id number] [facility] 2021-09-07 12:30:55 Outpatient Sahara Na STLMLC STLMLC [id number] [facility] 2021-09-07 12:16:19 Outpatient Jihan Calixto STLMLC STLMLC [id number] [facility] 2021-09-07 12:11:08 Outpatient Toño Álvarez STLMLC STLMLC [id number] [facility] 2021-09-07 12:09:44 Outpatient Toño Álvarez STLMLC STLMLC [id number] [facility] 2021-09-07 12:04:25 Outpatient Toño Álvarez STLMLC STLMLC [id number] [facility] 2021-09-07 12:03:00 Outpatient Toño Álvarez STLMLC STLMLC [id number] [facility] 2021-09-07 11:59:43 Outpatient STLMLC STLMLC [id number] [facility] 2021-09-07 11:25:13 Outpatient Hollie Cheung STLMLC STLMLC [id number] [facility] 2021-09-07 11:02:15 Outpatient Hollie Cheung STLMLC STLMLC [id number] [facility] 2021-09-07 11:01:49 Outpatient Hollie Cheung STLMLC STLMLC [id number] [facility] 2023-11-13 00:00:2023-11-13 00:00:00 (TEL) STLMLC STLMLC [id number] [facility] 2023-03-06 14:09:00 2023-03-06 18:00:00 Emergency Zia Garrison [facility] CAROLYN [id number] [facility] 2022-07-24 00:00:00 2022-07-24 00:00:00 (TEL) STLMLC STLMLC [id number] [facility] 2022-07-19 14:04:03 2022-07-19 14:04:03 Outpatient SFA SFA [id number] Damion Pompa Alcides 2022-07-12 06:31:00 2022-07-13 10:41:00 Inpatient Caitlin Esquivel [facility] MEDI.01 [id number] [facility] 2022-07-04 00:00:00 2022-07-04 00:00:00 (TEL) STLMLC STLMLC [id number] [facility] 2022-05-30 00:00:00 2022-05-30 00:00:00 (TEL) STLMLC STLMLC [id number] [facility] 2022-05-26 00:00:00 2022-05-26 00:00:00 (TEL) STLMLC STLMLC [id number] [facility] 2022-04-10 00:00:00 2022-04-10 00:00:00 (TEL) STLMLC STLMLC [id number] [facility] 2022-04-09 12:43:00 2022-04-09 14:01:00 Emergency X NELY SCOTT [facility] ERT [id number] [facility] 2022-04-09 12:43:00 2022-04-09 14:01:00 Emergency Nely Scott [facility] [id number] 350.1.13.10 4.2.7.2.686 [id number] [facility] 2022-04-09 00:00:00 2022-04-09 00:00:00 Orders Only Doctor Unassigned, [place] [facility] 1..840.114 350.1.13.10 4.2.7.2.686 [id number] [facility] 2022-03-27 00:00:00 2022-03-27 00:00:00 OFFICE VISIT ESTAB PT LEVEL 4 STLMLC STLMLC [id number] [facility] 2022-03-20 00:00:00 2022-03-20 00:00:00 (TEL) STLMLC STLMLC [id number] [facility] 2022-03-14 23:14:00 2022 14:48:00 Inpatient EM TayoRosalinda HCAPM INTE.02 [id number] [facility] 2022-03-14 23:14:00 2022 14:48:00 Inpatient EM LinaRosalinda shields HCAPM INTE.02 [id number] [facility] 2022-03-15 06:33:00 2022-03-15 06:33:00 Outpatient Rosalinda Cr HCACL LABO [id number] [facility] 2022-03-14 00:00:00 2022-03-14 00:00:00 OFFICE VISIT ESTAB PT LEVEL 4 STLMLC STLMLC [id number] [facility] 2022-03-01 07:39:00 2022-03-01 09:47:00 Outpatient R NICOLAS CAMPA [facility] OPH [id number] [facility] 2022-03-01 07:39:00 2022-03-01 09:47:00 Hospital Encounter Nicolas Campa [facility] 1.2.840.114 350.1.13.10 4.2.7.2.686 [id number] [facility] 2022-03-01 08:25:00 2022-03-01 08:59:00 Surgery Nicolas Campa [facility] 1.2840.114 350.1.13.10 4.2.7.2.686 [id number] [facility] 2022-02-27 15:00:00 2022-02-27 15:15:00 Laboratory Only Only, Adc Test Nicolas Campa [facility] 1.840.114 350.1.13.10 4.2.7.2.686 [id number] [facility] 2022-02-27 15:00:00 2022-02-27 15:00:00 Outpatient R NICOLAS CAMPA [facility] [id number] [facility] 2022-02-15 07:36:00 2022-02-15 09:56:00 Outpatient R NICOLAS CAMPA [facility] OPH [id number] [facility] 2022-02-15 07:36:00 2022-02-15 09:56:00 Hospital Encounter Nicolas Campa [facility] 1.2840.114 350.1.13.10 4.2.7.2.686 [id number] [facility] 2022-02-15 08:25:00 2022-02-15 08:59:00 Surgery Nicolas Campa [facility] 1.2.840.114 350.1.13.10 4.2.7.2.686 [id number] [facility] 2022-02-14 14:15:00 2022-02-14 14:15:00 Outpatient R NICOLAS CAMPA [facility] [id number] [facility] 2022-02-14 14:15:00 2022-02-14 14:15:00 Outpatient R NICOLAS CAMPA [facility] [id number] [facility] 2022-02-14 11:30:00 2022-02-14 11:45:00 Specialty Manufacturing Supervisor Visit Pob, Adc Lab Main Nicolas Campa [facility] 1.84.114 350.1.13.10 4.2.7.2.686 [id number] [facility] 2022-02-14 11:30:00 2022-02-14 11:30:00 Outpatient NICOLAS FARIAS [facility] [id number] [facility] 2022-02-11 09:00:00 2022-02-11 09:15:00 Specialty Manufacturing Supervisor Visit Pob, Adc Lab Main Sylvia Iglesias [facility] 1.84.114 350.1.13.10 4.2.7.2.686 [id number] [facility] 2022-02-11 09:00:00 2022-02-11 09:00:00 Outpatient SYLVIA MALDONADO [facility] [id number] [facility] 2022-02-11 08:45:00 2022-02-11 09:00:00 Laboratory Only Only, Adc Test Mirian Montalvo [facility] 1.114 350.1.13.10 4.2.7.2.686 [id number] [facility] 2022-02-11 00:00:00 2022-02-11 00:00:00 Orders Only Doctor Unassigned, [place] [facility] 1.114 350.1.13.10 4.2.7.2.686 [id number] [facility] 2022-02-09 00:00:00 2022-02-09 00:00:00 (TEL) STLMLC STLMLC [id number] [facility] 2022-02-08 07:45:00 2022-02-08 08:00:00 Specialty Manufacturing Supervisor Visit Pob, Adc Lab Main Nicolas Campa [facility] 1.84.114 350.1.13.10 4.2.7.2.686 [id number] [facility] 2022-02-08 07:45:00 2022-02-08 07:45:00 Outpatient R STONENICOLAS [facility] [id number] [facility] 2022-02-08 00:00:00 2022-02-08 00:00:00 (TEL) STLMLC STLMLC [id number] [facility] 2022-02-08 00:00:00 2022-02-08 00:00:00 (TEL) STLMLC STLMLC [id number] [facility] 2022-01-30 15:15:00 2022-01-30 15:15:00 Outpatient R STONENICOLAS [facility] [id number] [facility] 2022-01-30 00:00:00 2022-01-30 00:00:00 Orders Only Doctor Unassigned, [place] [facility] 1.2.840.114 350.1.13.10 4.2.7.2.686 [id number] [facility] 2022-01-27 00:00:00 2022-01-27 00:00:00 (TEL) STLC STLC [id number] [facility] 2022-01-23 13:00:00 2022-01-23 13:15:00 Specialty Manufacturing Supervisor Visit Pob, Adc Lab Main Mirian Montalvo [facility] 1..840.114 350.1.13.10 4.2.7.2.686 [id number] [facility] 2022-01-23 13:00:00 2022-01-23 13:00:00 Outpatient R MIRIAN MONTALVO [facility] [id number] [facility] 2022-01-17 12:05:18 2022-01-17 23:59:00 Outpatient R RADIOLOGY [facility] [id number] [facility] 2022-01-17 12:05:18 2022-01-17 23:59:00 Hospital Encounter Radiology [facility] 1.2.840.114 350.1.13.10 4.2.7.2.686 [id number] [facility] 2022-01-17 12:00:00 2022-01-17 12:15:00 Specialty Manufacturing Supervisor Visit Pob, Adc Lab Main Mirian Montalvo [facility] 1.2.840.114 350.1.13.10 4.2.7.2.686 [id number] [facility] 2022-01-06 00:00:00 2022-01-06 00:00:00 (TEL) STLMLC STLMLC [id number] [facility] 2022-01-03 11:52:59 2022-01-03 23:59:00 Outpatient R RADIOLOGY [facility] [id number] [facility] 2022-01-03 11:52:59 2022-01-03 23:59:00 Hospital Encounter Radiology [facility] 1.2840.114 350.1.13.10 4.2.7.2.686 [id number] [facility] 2022-01-02 00:00:00 2022-01-02 00:00:00 (TEL) STLMLC STLMLC [id number] [facility] 2022-01-02 00:00:00 2022-01-02 00:00:00 OFFICE VISIT ESTAB PT LEVEL 4 STLMLC STLMLC [id number] [facility] 2021-12-27 00:00:00 2021-12-27 00:00:00 (TEL) STLMLC STLMLC [id number] [facility] 2021-12-23 14:17:19 2021-12-23 23:59:00 Hospital Encounter Radiology [facility] 1.2.840.114 350.1.13.10 4.2.7.2.686 [id number] 800 [id number] [facility] 2021-12-23 14:16:57 2021-12-23 14:16:57 Outpatient R RADIOLOGY [facility] [id number] [facility] 2021-12-23 14:16:57 2021-12-23 14:16:57 Hospital Encounter Radiology [facility] 1.2.840.114 350.1.13.10 4.2.7.2.686 [id number] [facility] 2021-12-06 00:00:00 2021-12-06 00:00:00 (TEL) STLMLC STLMLC [id number] [facility] 2021-11-17 13:17:58 2021-11-17 23:59:00 Hospital Encounter Radiology [facility] 1.2.840.114 350.1.13.10 4.2.7.2.686 [id number] 800 [id number] [facility] 2021-11-17 13:17:06 2021-11-17 23:59:00 Hospital Encounter Radiology [facility] 1.2.840.114 350.1.13.10 4.2.7.2.686 [id number] [facility] 2021-11-17 13:17:06 2021-11-17 23:59:00 Outpatient R RADIOLOGY [facility] RAD [id number] [facility] 2021-11-11 00:00:00 2021-11-11 00:00:00 (TEL) STLMLC STLMLC [id number] [facility] 2021-11-08 00:00:00 2021-11-08 00:00:00 OFFICE VISIT EST PT LEVEL 3 STLMLC STLMLC [id number] [facility] 2021-11-03 14:15:00 2021-11-03 14:30:00 Specialty Manufacturing Supervisor Visit Pob, Adc Lab Main [facility] 1.2.840.114 350.1.13.10 4.2.7.2.686 [id number] [facility] 2021-11-03 14:15:00 2021-11-03 14:15:00 Outpatient MIRIAN FELIZ [facility] [id number] [facility] 2021-11-03 00:00:00 2021-11-03 00:00:00 Orders Only Doctor Unassigned, [place] [facility] 1.2.840.114 350.1.13.10 4.2.7.2.686 [id number] [facility] 2021-10-24 00:00:00 2021-10-24 00:00:00 (TEL) STLMLC STLMLC [id number] [facility] 2021-10-10 00:00:00 2021-10-10 00:00:00 (TEL) STLMLC STLMLC [id number] [facility] 2021-10-07 00:00:00 2021-10-07 00:00:00 SUB ANNUAL [facility] WELLNESS VISIT STLMLC STLMLC [id number] [facility] 2021-10-07 00:00:00 2021-10-07 00:00:00 OFFICE VISIT EST PT LEVEL 3 STLMLC STLMLC [id number] [facility] 2021-07-25 00:00:00 2021-07-25 00:00:00 (TEL) STLMLC STLMLC [id number] [facility] 2021-07-14 00:00:00 2021-07-14 00:00:00 OFFICE VISIT ESTAB PT LEVEL 4 STLMLC STLMLC [id number] [facility] 2021-06-20 00:00:00 2021-06-20 00:00:00 (TEL) STLMLC STLMLC [id number] [facility] 2021-06-10 00:00:00 2021-06-10 00:00:00 (TEL) STLMLC STLMLC [id number] [facility] 2021-06-06 00:00:00 2021-06-06 00:00:00 (TEL) STLMLC STLMLC [id number] [facility] 2021-06-06 00:00:00 2021-06-06 00:00:00 OFFICE VISIT EST PT LEVEL 3 STLMLC STLMLC [id number] [facility] 2021-06-02 00:00:00 2021-06-02 00:00:00 OFFICE VISIT EST PT LEVEL 3 STLMLC STLMLC [id number] [facility] 2021-04-13 00:00:00 2021-04-13 00:00:00 OFFICE VISIT ESTAB PT LEVEL 4 STLMLC STLMLC [id number] [facility] 2021-04-05 00:00:00 2021-04-05 00:00:00 Outpatient STLMLC STLMLC [id number] [facility] 2021-03-01 00:00:00 2021-03-01 00:00:00 Outpatient STLMLC STLMLC [id number] [facility] 2020-12-13 00:00:00 2020-12-13 00:00:00 Outpatient STLMLC STLMLC [id number] [facility] 2020-11-21 00:00:00 2020-11-21 00:00:00 Outpatient STLMLC STLMLC [id number] [facility] 2020-11-08 00:00:00 2020-11-08 00:00:00 Outpatient STLMLC STLMLC [id number] [facility] 2020-10-14 00:00:00 2020-10-14 00:00:00 Outpatient STLMLC STLMLC [id number] [facility] 2020-07-21 00:00:00 2020-07-21 00:00:00 Outpatient STLMLC STLMLC [id number] [facility] 2020-06-29 00:00:00 2020-06-29 00:00:00 Outpatient STLMLC STLMLC [id number] [facility] 2020-06-22 00:00:00 2020-06-22 00:00:00 [facility] [id number] 2020-04-27 15:47:00 2020-04-27 15:47:00 [facility] [place] [facility] [id number] [facility] 2020-04-12 11:12:00 2020-04-12 11:12:00 Outpatient [facility] [place][note 2] [id number] [facility] 2020-04-06 08:16:00 2020-04-06 08:16:00 Outpatient [facility] [id number] [facility] 2020-03-11 09:40:00 2020-03-11 09:40:00 [address] [facility] [address] [facility] [id number] [facility] 2020-01-16 15:20:00 2020-01-16 15:20:00 [address] [facility] [address] [facility] [id number] [facility] 2019-11-27 10:51:00 2019-11-27 10:51:00 [place] [facility] [address] [facility] [id number] [facility] 2019-11-20 08:43:00 2019-11-20 08:43:00 [place] [facility] [address] [facility] [id number] [facility] 2019-11-18 14:00:00 2019-11-18 14:00:00 [place] [address] [facility] [id number] [facility] 2019-11-18 10:06:00 2019-11-18 10:06:00 [place] [address] [facility] [id number] [facility] 2019-10-28 16:14:00 2019-10-28 16:14:00 [place] [facility] [id number] [facility] 2019-10-26 23:58:00 2019-10-26 23:58:00 [address] [facility] [id number] [facility] 2019-10-23 08:30:00 2019-10-23 08:30:00 [place] [id number] [facility] 2019-09-07 02:09:00 2019-09-07 02:09:00 [place] [id number] [facility] 2019-09-04 08:39:00 2019-09-04 08:39:00 [address] [facility] [id number] [facility] 2019-09-03 15:00:00 2019-09-03 15:00:00 [place] [id number] [facility] 2019-08-05 08:20:00 2019-08-05 08:20:00 [place] [address] [facility] [id number] [facility] 2019-07-23 11:48:00 2019-07-23 11:48:00 [place] [facility] [address] [facility] [id number] [facility] 2019-07-04 11:00:00 2019-07-04 11:00:00 [place] [address] [facility] [id number] [facility] 2019-06-16 14:52:00 2019-06-16 14:52:00 Outpatient Porfirio Morelos DO Porfirio Morelos DO [id number] [facility] 2019-06-05 12:07:00 2019-06-05 12:07:00 [facility] [facility] [address] [facility] [id number] [facility] 2019-04-23 09:47:00 2019-04-23 09:47:00 Outpatient [facility] [id number] [facility] 2019-04-15 13:00:00 2019-04-15 13:00:00 Outpatient [facility] [id number] [facility] Results Test Description Test Time Test Comments Results Result Co mments Source PROTHROMBIN [id number] 15:52:00* Test Item Value Reference Range Interpretation [...] Infarction (to prevent recurrent infarct). THROMBOPLASTIN TIME [id number] 15:52:00* Test Item Value Reference Range Interpretation Comme nts THROMBOPLASTIN TIME PARTIAL (test code = PTT) 36.9 SECONDS 26-35 H CBC W/AUTO [id number] 15:47:00* Test Item Value Reference Range Interpretation [...] = MDIFF) NO DIFF/SCN CRITERIA COAGULATION TIME [id number] 17:42:00* Test Item Value Reference Range Interpretation Comme nts COAGULATION TIME ACTIVATED ( test code = ACT) 292 SECistat 74-125 H BASIC METABOLIC [id number] 09:30:00* Test Item Value Reference Range Interpretation [...] CA) 8.9 MG/DL 8.5-10.1 N GLUCOSE BEDSIDE [id number] 08:19:00* Test Item Value Reference Range Interpretation Comme nts GLUCOSE BEDSIDE TESTING (latrice t code = GLUBED) 159 mg/dL 70-110 H GLUCOSE BEDSIDE [id number] 17:09:00* Test Item Value Reference Range Interpretation Comme nts GLUCOSE BEDSIDE TESTING (latrice t code = GLUBED) 166 mg/dL 70-110 H COAGULATION TIME [id number] 10:57:00* Test Item Value Reference Range Interpretation Comme nts COAGULATION TIME ACTIVATED ( test code = ACT) 305 SECistat 74-125 H - XR CHEST 1 [id number] 07:51:00 [facility] 1950 Sex: F Name: ANNIE CLAROS [facility] : 1950 Age/S: 72 / F [address] Unit #: [id number] Loc: [place] [address] Phys: Caitlin Wood MD Acct: [id number] Dis Date: Status: REG [facility] PHONE #:[phone] Exam Date: 07/12/2022 0740 FAX #: Reason: PRE OP EXAMS: CPT: [id number] XR CHEST 1 V 75502 Fluoro Time: DAP (Gy m2): Air Kerma (mGy): EXAM: - XR CHEST 1 V Location code:C3 HISTORY: PRE OP COMPARISON: 03/14/2022 FINDINGS: Single AP view of the chest is provided. Heart size and vascularityare within normal limits. The lungs are clear of focal consolidation. No effusion, pneumothorax, oracute osseous abnormality. IMPRESSION: 1. No radiographic evidence of acute cardiopulmonary process. at 0751 Reported and signed by: Abiodun Gómez MD CC: Caitlin Serrano MD PAGE 1 Signed Report Name: ANNIE CLAROS [facility] : 1950 Age/S: 72 / F [address] [place] [address] Unit #: [id number] Loc: [place] [address] Phys: Caitlin Wood MD Acct: [id number] Dis Date: Status: REG [facility] PHONE #: [phone] Date: 07/12/2022 0740 FAX #: Reason: PRE OP EXAMS: CPT: [id number] XR CHEST 1 V 87979 Fluoro Time: DAP (Gy m2): Air Kerma (mGy): (Continued) Technologist: Asley Lebouf, RT,(R),(CT) Trnscb Date/Time: 07/12/2022 (0751) [email or web address] Orig Print D/T: S: 07/12/2022 (7795) PAGE 2 Signed Report PROTHROMBIN [id number] 14:37:00* Test Item Value Reference Range Interpretation Comme nts PT PATIENT (test code = PTP) 10.4 [...] Infarction (to prevent recurrent infarct). THROMBOPLASTIN TIME [id number] 14:37:00* Test Item Value Reference Range Interpretation Comme nts THROMBOPLASTIN TIME PARTIAL (test code = PTT) 31.4 SECONDS 26-35 N BASIC METABOLIC [id number] 13:58:00* Test Item Value Reference Range Interpretation [...] calculation forGFR is based on the CKD-EPI (202) calculation. This formulais race indifferent and is the recommended formula for GFRby the National Kidney Foundation for Adults.The GFR will not calculate if the sex is unknown or if thepatient's age is <18 years. CREATININE (test code = CREAT) 1.7 MG/DL 0.6-1.0 H CALCIUM (test code = CA) 9.7 MG/DL 8.5-10.1 N CBC W/AUTO [id number] 13:57:00* Test Item Value Reference Range Interpretation [...] = MDIFF) NO DIFF/SCN CRITERIA GLUCOSE BEDSIDE [id number] 11:36:00* Test Item Value Reference Range Interpretation Comme nts GLUCOSE BEDSIDE TESTING (latrice t code = GLUBED) 258 mg/dL 70-110 H BASIC METABOLIC [id number] 09:00:00* Test Item Value Reference Range Interpretation [...] code = CA) 9.8 MG/DL 8.5-10.1 N [id number] 09:00:00* Test Item Value Reference Range Interpretation Comme nts MAGNESIUM (test code = MAG) 1.8 MG/DL 1.8-2.4 N GLUCOSE BEDSIDE [id number] 08:04:00* Test Item Value Reference Range Interpretation Comme nts GLUCOSE BEDSIDE TESTING (latrice t code = GLUBED) 240 mg/dL 70-110 H GLUCOSE BEDSIDE [id number] 20:51:00* Test Item Value Reference Range Interpretation Comme nts GLUCOSE BEDSIDE TESTING (latrice t code = GLUBED) 232 mg/dL 70-110 H GLUCOSE BEDSIDE [id number] 08:24:00* Test Item Value Reference Range Interpretation Comme nts GLUCOSE BEDSIDE TESTING (latrice t code = GLUBED) 207 mg/dL 70-110 H GLYCOSYLATED HEMOGLOBIN [id number] 06:51:00* Test Item Value Reference Range Interpretation Comme nts GLYCOSYLATED HEMOGLOBIN (HA1 C) (test code = GLYHGB) 9.2 % A1C 0.0-5.7 H ESTIMATED AVERAGE GLUCOSE (t est code = EAG) 217 MG/DLest BASIC METABOLIC [id number] 06:42:00* Test Item Value Reference Range Interpretation [...] = LDL) 102 MG/DL 0-129 N <100 KNUTIXH13 0 - 129 NEAR OPTIMAL/ABOVE [id number] - 159 [id number] - 189 HIGH>OR= 190 VERY HIGHNOTE THAT GUIDELINES ARE PROVIDED BY NATIONAL CHOLESTEROLEDUCATION PROGRAM ADULT TREATMENT PANEL III LDL/HDL (test code = LDL/HDL) 4.08 Ratio See_Comment H [Automated messa ge] The system which generated this result transmitted reference range: 1.48-3.22 Avg. The reference range was not used to interpret this result as normal/abnormal. [id number] 06:42:00* Test Item Value Reference Range Interpretation Comme nts MAGNESIUM (test code = MAG) 1.4 MG/DL 1.8-2.4 L NT PRO-BRAIN NATRIURETIC [id number] 06:38:00* Test Item Value Reference Range Interpretation Comme nts NT PRO-BRAIN NATRIURETIC PEP TI (test code = PROBNP) 75 PG/ML 0-100 N CBC W/AUTO [id number] 06:23:00* Test Item Value Reference Range Interpretation [...] = MDIFF) NO DIFF/SCN CRITERIA GLUCOSE BEDSIDE [id number] 20:50:00* Test Item Value Reference Range Interpretation Comme nts GLUCOSE BEDSIDE TESTING (latrice t code = GLUBED) 223 mg/dL 70-110 H GLUCOSE BEDSIDE [id number] 16:40:00* Test Item Value Reference Range Interpretation Comme nts GLUCOSE BEDSIDE TESTING (latrice t code = GLUBED) 272 mg/dL 70-110 H - MRI BRAIN W/O [id number] 11:44:00 [facility] 1950 Sex: F FAX: Rosalinda Cr MD Camps: PM St: ADM Name: ANNIE CLAROS [facility] : 1950 Age/S: 71/F [address] Unit #:[id number] Loc: [place] [address] Phys: Rosalinda Cr MD Acct: [id number] Dis Date: Status: ADM IN PHONE #: [phone] Exam Date: 03/15/2022 2953 FAX #: Reason: acute stroke EXAMS: CPT: [id number] MRI BRAIN W/O CONTRAST 58304 EXAM: - MRI BRAIN W/O CONTRAST INDICATION: acute stroke [id number]: Multiplanar multisequence MR images of the brain were obtained without intravenous contrast. FINDINGS: Intra-axial structures, and extra-axial fluid spaces: No acute or subacute infarct, or intracranial hemorrhage seen. No mass effect, midline shift or hydrocephalus noted. Foci of high T2 signal identified scattered within the periventricular white matter, suggesting sequela of chronicsmall vessel ischemic disease. Cervicomedullary junction appears unremarkable. Visualized flow voids: appear unremarkable. Paranasal sinuses and mastoid air cells: Appear clear. Osseous structures: appear unremarkable. Orbits: Appear unremarkable. IMPRESSION: No acute intracranial process seen. at 1144 Reported and signed by: Delbert Lance M.D. CC: Rosalinda Cr MD Technologist: Maxine Mcgraw, RT(R)(MR) Transcribed Date/Time/By: 03/15/2022 (6967) :[email or web address] Orig Print D/T: S: 03/15/2022 (5641) PAGE 1 Signed ReportGLUCOSE BEDSIDE [id number] 10:51:00* Test Item Value Reference Range Interpretation Comme nts GLUCOSE BEDSIDE TESTING (latrice t code = GLUBED) 135 mg/dL 70-110 H UA RFLX MICR CULT IF [id number] 06:07:00* Test Item Value Reference Range Interpretation [...] OF URINE: CLEAN CATCHCOVID 19 Asymptomatic IH [id number] 23:03:00* Test Item Value Reference Range Interpretation Comme nts COVID 19 Asymptomatic IH AG (test code = COVNONPUIAG) NEGATIVE Negative Per building architectural designer , negative results should be treated aspresumptive [...] consistent with COVID-19. - XR CHEST 1 [id number] 22:28:00 [facility] : 1950 Sex: F Name: ANNIE CLAROS [facility] : 1950 Age/S: 71 / F [address] Unit #: [id number] Loc: [place] [address] Phys: Elina Starks DO Acct: [id number] Dis Date: Status: REG ER PHONE #: [phone] Exam Date: 03/14/20222208 FAX #: Reason: Code Stroke EXAMS: CPT: [id number] XR CHEST 1V 15364 Fluoro Time: DAP (Gy m2): Air Kerma (mGy): EXAM: Chest x-ray, 1 view Dictation location: H10 COMPARISON: None INDICATION: Code Stroke DISCUSSION: No consolidation, pneumothorax, or pleural effusion is seen. The cardiomediastinal silhouette is within normal limits. No acute bony abnormalities are identified. IMPRESSION: No evidence of acute abnormality. at 2228 Reported and signed by: Lm Watts M.D. CC: Elina Sloan DO PAGE 1 Signed Report Name: ANNIE CLAROS [facility] : 1950 Age/S: 71 / F [address] Unit #: [id number] Loc: [place] [address] Phys: Elina Starks DO Acct: [id number] Dis Date: Status: REG ER PHONE #: [phone] Exam Date: 03/14/20222208 FAX #: Reason: CodeStroke EXAMS: CPT: [id number] XR CHEST 1 V 16457 Fluoro Time: DAP (Gy m2): Air Kerma (mGy): (Continued) Technologist: Socrates Boone, RT(R) Trnscb Date/Time: 03/14/2022 (2227) [email or web address] Orig Print D/T: S: 03/14/2022 (2231) PAGE 2 Signed Report- CT ANGIO [id number] 22:23:00 [facility] : 1950 Sex: F Name:ANNIE CLAROS [facility] : 1950 Age/S: 71 / F [address] Unit #: [id number] Loc: [place] [address] Phys: Elina Starks DO Acct: [id number] Dis Date: Status: REG ER PHONE #: [phone] Exam Date: 03/14/20222199 FAX #: Reason: expressive aphasia EXAMS: CPT: [id number] CT ANGIO NECK 37247 EXAM: CTA head with contrast and CTA [...] is otherwise unremarkable. The right vertebral artery arisesfrom the subclavian artery and is nondominant/diminutive and [...] 1 Signed Report (CONTINUED) Name: ANNIE CLAROS [facility] : 1950 Age/S: 71 / [id number] [facility] [address] Unit #: [id number] Loc: [place] [address] Phys: Elina Starks DO Acct: [id number] Dis Date: Status: REG ER PHONE #: [phone] Exam Date: 03/14/2022 220 FAX #: Reason: expressive aphasia EXAMS: CPT: [id number] CT ANGIO NECK 58711 (Continued) Other findings: There is nocervical adenopathy or mass. The airway is patent and midline. The thyroid gland is unremarkable. The parotid and submandibular glands are unremarkable. Cervical spine degenerative changes are noted.IMPRESSION: 1. Normal CTA head. 2. Mild calcified plaque at the proximal right ICA and at the left carotid bulb, resulting in up to 10% stenosis on each side. Otherwise, unremarkable CTA neck. One ormore of the following dose reduction techniques were [...] (2225) PAGE 2 Signed Report- CT ANGIO [id number] 22:23:00 [facility] : 1950 Sex: F Name: ANNIE CLAROS [facility] : 1950 Age/S: 71 / F [address] Unit #: [id number] Loc: [place] [address] Phys: Elina Starks DO Acct: [id number] Dis Date: Status: REG ER PHONE #: [phone] Exam Date: 03/14/20222199 FAX #: Reason: expressive aphasia EXAMS: CPT: [id number] CT ANGIO HEAD 80983 EXAM: CTA head with contrast and CTA [...] ANNIE CLAROS : 1950 Age/S: 71 / [id number] Unit #: [id number] Loc: [place] [address] Phys: Elina Starks DO Acct: [id number] Dis Date: Status: REG ER PHONE #: [phone] Exam Date: 03/14/2022 2200 FAX #: Reason: expressive aphasia EXAMS: CPT: [id number] CT ANGIO HEAD [address]009 (Continued) Other findings: There is no cervical [...] (2222) t.[email or web address] Orig Print D/T: S: 03/14/2022 (6625) PAGE 2 Signed ReportBASIC METABOLIC [id number] 22:15:00* Test Item Value Reference Range Interpretation [...] 8.5-10.1 N Completed by Nursing: NOTROP-I HIGH [id number] 22:15:00* Test Item Value Reference Range Interpretation [...] may varyby method. Completed by Nursing: NOPROTHROMBIN [id number] 22:11:00* Test Item Value Reference Range Interpretation [...] Infarction (to prevent recurrent infarct). THROMBOPLASTIN TIME [id number] 22:11:00* Test Item Value Reference Range Interpretation Comme nts THROMBOPLASTIN TIME PARTIAL (test code = PTT) 31.1 SECONDS 26-35 N CBC W/O [id number] 22:02:00* Test Item Value Reference Range Interpretation [...] fL 7.0-10.5 H - CT HEAD/BRAIN W/O [id number] 22:00:00 [facility] : 1950 Sex: F Name: ANNIE CLAROS [facility] : 1950 Age[facility]S: 71 [facility] [address] [facility] #: [id number] Loc: [place] [address] Phys: Elina Starks DO Acct: [id number] Dis Date: Status: PRE ER PHONE #: [phone] Exam Date: 03/14/20222149 FAX #: Reason: expressive aphasia EXAMS: CPT: [id number] CT HEAD/BRAIN W/O CONT 73703 Location: CT head, 03/14/22 COMPARISON EXAMS:None of [...] aphasia. FINDINGS: No positive mass-effect, midline shift, extra- axial fluid collections or intracranial hemorrhages seen. In [...] in a watershed distribution between the left LOG PREPARER and MCA territory. No other findings of concern for a vascular insult. IMPRESSION: No territorial infarction or space-occupying process. No intracranial hemorrhage Difficult to age characterize small vascular insult in the left parietal lobe posteriorly m edially somewhat in a watershed distribution possibly subacute in age. I have discussed the findings of this code stroke case with Dr. Starks on 03/14/22 at 9:57 PM PAGE 1 Signed Report (CONTINUED)Name: ANNIE CLAROS : 1950 Age/S: 71 / F [id number] Unit #: [id number]: Julio Carter [id number] Phys: Elina Starks DO Acct: [id number] Dis Date: Status: PRE ER PHONE #: [phone] Exam Date: 03/14/2022 2150 FAX #: Reason: expressive aphasia EXAMS: CPT: [id number] CT HEAD/BRAIN W/O CONT 21272 (Continued) FOR INTERNAL CODING PURPOSES ONLY RESULT CODE: CVRMD at 2200 Reported and signed by: Adri Hicks M.D. CC: Elina Starks DO Technologist:Socrates Boone, RT(R); Esperanza CTDI: DLP: Trnscb Date/Time: 03/14/2022 (2199) [email or web address] Orig Print D/T: S: 03/14/2022 (2202) PAGE 2 [facility] GLUCOSE (AUTOMATED)2022-03-01 13:03:23* Test Item Value Reference Range Interpretation Comme nts POCT GLU (test code = 7966829973) 321 mg/dL 70-110 H Lab Interpretation (test cod e = 78547-6) Abnormal [facility] GLUCOSE (AUTOMATED)2022-03-01 13:03:23* Test Item Value Reference Range Interpretation Comme nts POCT GLU (test code = 7479012022) 321 mg/dL 70-110 H Lab Interpretation (test cod e = 05302-5) Abnormal [facility] [id number] 12:47:00* Test Item Value Reference Range Interpretation Comme nts POCT Glu (age>30days) (test code = 3342) 321 mg/dL 70-110 A Lab Interpretation (test cod e = 58180-9) Abnormal [facility] Uoenitl9941-98-05 12:47:00* Test Item Value Reference Range Interpretation Comme nts POCT Glu (age>30days) (test code = 3342) 321 mg/dL 70-110 A Lab Interpretation (test cod e = 10630-8) Abnormal [facility] GLUCOSE (AUTOMATED)2022-02-15 13:02:47* Test Item Value Reference Range Interpretation Comme nts POCT GLU (test code = 6230669243) 152 mg/dL 70-110 H Lab Interpretation (test cod e = 88001-1) Abnormal [facility] GLUCOSE (AUTOMATED)2022-02-15 13:02:47* Test Item Value Reference Range Interpretation Comme nts POCT GLU (test code = 6731587627) 152 mg/dL 70-110 H Lab Interpretation (test cod e = 82199-1) Abnormal [facility] [id number] 12:58:00* Test Item Value Reference Range Interpretation Comme nts POCT Glu (age>30days) (test code = 3342) 152 mg/dL 70-110 A Lab Interpretation (test cod e = 78306-8) Abnormal [facility] Acpqcpn8818-52-55 12:58:00* Test Item Value Reference Range Interpretation Comme nts POCT Glu (age>30days) (test code = 3342) 152 mg/dL 70-110 A Lab Interpretation (test cod e = 44055-0) [facility]Dafsqdhdllkrq3911-66-13 00:00:00 * Test Item Value Reference Range Interpretation Comme nts Urine Culture,Comprehensive (test code = 630-4) Final report Notes Date/Time Note Provider Source 2023-03-06 15:09:00 [facility]) EMERGENCY PROVIDER REPORT REPORT#:[id number] REPORT STATUS: Signed DATE:03/06/23 TIME:1509 PATIENT: ANNIE CLAROS UNIT #: [id number] ROOM/BED: : 52 AGE: 73 SEX: F PCP PHYS: Jihan Calixto DO SERVICE AUTHOR: Zia Recio MD * ALL edits or amendments must be made on the electronic/computer document * HPI-General Illness Free Text HPI Notes Free Text HPI Notes Pt is a 73 yo F here for bleeding from gums. Pt reports she had an episode of bleeding from her gums that resolved followed by spitting up some dark colored blood. Denies any trauma or injury. Denies any active bleeding. Was seen by PCP and sent to the ER for further eval. General Initial Greet Date/Time 03/06/23 1506 Presentation Chief Complaint Gum Bleeding Review of Systems ROS Statements All systems rev neg except as marked. Complete sys rev neg except as marked. Past Medical History - Adult Stated Complaint ALTAWEEL SENT TO ER,SPITTING UP BLOOD, GUM Allergies Coded Allergies: Penicillins (Intermediate, RASH 05/13/17) Home Medications Active Scripts ATORVASTATIN (LIPITOR) 40 MG PO DAILY 1700 ATORVASTATIN (LIPITOR) 40 MG PO DAILY 1700 #30 TAB Prov: 03/17/22 CARVEDILOL (COREG) 6.25 MG PO BID CARVEDILOL (COREG) 6.25 MG PO BID #60 TAB Prov: 03/17/22 CLOPIDOGREL (PLAVIX) 75 MG PO DAILY CLOPIDOGREL (PLAVIX) 75 MG PO DAILY #30 TAB Prov: 07/13/22 Reported Medications SUCRALFATE (CARAFATE) 1 GM PO AC HS LEVOTHYROXINE (SYNTHROID) 50 MCG PO DAILY GLIMEPIRIDE (AMARYL) 1 MG PO DAILY ALLOPURINOL (ZYLOPRIM) 200 MG PO DAILY ASPIRIN 81 MG PO DAILY LISINOPRIL (ZESTRIL) 10 MG PO DAILY FLUTICASONE PROPIONATE (FLOVENT HFA 44 MCG/ACT) 2 PUFF INH RTBID CETIRIZINE 10 MG PO DAILY ISOSORBIDE MONONITRATE SR (IMDUR) 30 MG PO DAILY FAMOTIDINE (PEPCID) 20 MG PO BID INSULIN GLARGINE (LANTUS SOLOSTAR (15mL)) 60 UNITS SUBQ DAILY Physical Exam Vital Signs Vital Signs First Documented: Result Date Time Pulse Ox 98 03/06 1453 B/P 150/75 03/06 1453 B/P Mean 100 03/06 1453 O2 Delivery Room air 03/06 1453 Temp 36.6 03/06 1453 Pulse 76 03/06 1453 Resp 16 03/06 1453 Last Documented: Result Date Time Pulse Ox 99 03/06 1800 B/P 126/78 03/06 1800 B/P Mean 94 03/06 1800 O2 Delivery Room air 03/06 1800 Temp 36.9 03/06 1800 Pulse 71 03/06 1800 Resp 18 03/06 1800 Review of Vital Signs Reviewed Basic Physical Exam Basic PE GEN: Well appearing/NAD, HEAD: Atraumatic/NC, EYES: PERRL, conj clear, ENT: Membranes moist, NECK: Supple, RESP: No resp distress, CV: Reg rate rhythm, ABD: Soft/non-tender, EXT: No gross abnormality, SKIN: No rashes, warm/ dry, NEURO: alert oriented, NEURO: gross movement NL, PSYCH: NL thought content Interpretation Diagnostics Lab Results Interpretation Results Laboratory Tests 03/06/23 1531: [Embedded Image Not Available] Laboratory Tests: 03/06 03/06 1531 1531 Chemistry Sodium (134 - 147 mmol/L) 133 L Potassium (3.4 - 5.0 mmol/L) 4.8 Chloride (100 - 108 mmol/L) 98 L Carbon Dioxide (21 - 32 mmol/L) 26 Anion Gap (4.0 - 15.0 GAP calc) 9.0 BUN (7 - 18 MG/DL) 24 H Creatinine (0.6 - 1.0 MG/DL) 1.6 H Glomerular Filtr Rate (>60 estGFR) 34 L Glucose (70 - 110 MG/DL) 230 H Calcium (8.5 - 10.1 MG/DL) 9.6 Total Bilirubin (0.2 - 1.2 MG/DL) 0.50 AST (15 - 37 Unit/L) 25 ALT (12 - 78 Unit/L) 37 Total Alk Phosphatase (45 - 117 Unit/L) 109 Total Protein (6.4 - 8.2 G/DL) 7.8 Albumin (3.4 - 5.0 G/DL) 3.9 Globulin (GM/dL) 3.9 Albumin/Globulin Ratio (1.2 - 2.2 RATIO) 1.0 L Coagulation INR (0.8 - 1.2 INR Unit) 1.48 H PTT (Nolberto) (26 - 35 SECONDS) 36.9 H PT Patient/Control Mix (9.3 - 12.9 SECONDS) 16.6 H Hematology WBC (3.5 - 11.0 K/mm3) 7.6 RBC (4.70 - 6.10 M/mm3) 4.02 L Hgb (10.4 - 14.9 G/DL) 12.6 Hct (31.5 - 44.1 %) 35.3 MCV (84.5 - 98.6 Fl) 87.8 MCH (27.0 - 34.2 pg) 31.3 MCHC (31.5 - 34.0 G/DL) 35.7 H RDW (11.5 - 14.5 SD) 12.5 Plt Count (150 - 450 K/mm3) 254 MPV (7.0 - 10.5 fL) 10.30 Neut % (Auto) (40 - 76 %) 71.9 Lymph % (Auto) (20.5 - 51.1 %) 18.4 L Bartholomew % (Auto) (1.7 - 9.3 %) 7.1 Eos % (Auto) (0.0 - 6.0 %) 1.2 Baso % (Auto) (0.0 - 2.0 %) 1.0 Neut # (Auto) (1.8 - 7.6 K/mm3) 5.5 Lymph # (Auto) (0.6 - 3.2 K/mm3) 1.4 Bartholomew # (Auto) (0.3 - 1.1 K/mm3) 0.5 Eos # (Auto) (0.0 - 0.4 K/mm3) 0.1 Baso # (Auto) (0.0 - 0.1 K/mm3) 0.1 Abs Immat Gran (auto) (0.00 - 0.03 x10 3/uL) 0.03 Add Manual Diff (CRITERIA DIFF/SCN) NO Immature Gran % (0.0 - 5.0 %) 0.4 Nucleated RBC % (0.0 - 1.0 /100WBC%) 0.0 Re-Evaluation MDM Free Text MDM Notes Free Text MDM Notes Pt is a 73 yo F here for episode of bleeding from gums. Discussed with pt, No active bleeding at this time. No need for labs or imaging at this time. Pt is amenable to this plan. Will dc home; return precautions given. Patient Discharge Departure Vital Signs/Condition Vital Signs First Documented: Result Date Time Pulse Ox 98 03/06 1453 B/P 150/75 03/06 1453 B/P Mean 100 03/06 1453 O2 Delivery Room air 03/06 1453 Temp 36.6 03/06 1453 Pulse 76 03/06 1453 Resp 16 03/06 1453 Last Documented: Result Date Time Pulse Ox 99 03/06 1800 B/P 126/78 03/06 1800 B/P Mean 94 03/06 1800 O2 Delivery Room air 03/06 1800 Temp 36.9 03/06 1800 Pulse 71 03/06 1800 Resp 18 03/06 1800 All vital signs available at the time of this entry have been reviewed. Clinical Impression Clinical Impression Primary Impression: Bleeding gums Secondary Impressions: Coagulation problem Disposition Decision Discharge )( Discharged to Home Yes )( Time 1755 )( Date 03/06/23 Discharge/Care Plan Counseled Regarding Diagnosis, Lab results, Medication changes, Need for follow- up, When to return to ED Patient Instructions Apixaban Oral Tablet at 1042 RPT #: [id number] END OF REPORT [facility] 2022-07-13 10:12:00 [facility] ([facility]) Hospitalist Discharge Summary REPORT#:[id number] REPORT STATUS: Signed DATE:07/13/22 TIME:1012 PATIENT: ANNIE CLAROS UNIT #: [id number] ROOM/BED: [facility] : 52 AGE: 72 SEX: F ATTEND: Caitlin Wood MD ADM AUTHOR: Rosalinda Cr MD * ALL edits or amendments must be made on the electronic/computer document * General Information Date of admission: Observation Start Date: 07/12/22 Date of admission: 07/12/22 Discharge date: 07/13/22 Admission diagnosis: Angina CAD status post PCI CKD 3 Hypertension Diabetes mellitus Discharge diagnosis: Angina CAD status post PCI CKD 3 Hypertension Diabetes mellitus Hospital course: Ms. Claros is 72-year-old female presented to the hospital for planned cardiac catheterization due to persistent angina. Patient underwent cardiac catheterization with PCI. She will continue optimal medical therapy. Patient was monitored and hydrated intravenously overnight due to history of CKD. She remained stable for discharge. Pt. condition on discharge: stable Med Rec Med Rec Discharge meds: Continue taking these medications: SUCRALFATE (CARAFATE) 1 GM TAB 1 GRAM ORAL BEFORE MEALS AND AT BEDTIME. LEVOTHYROXINE (SYNTHROID) 50 MCG TAB 50 MICROGRAM ORAL DAILY. GLIMEPIRIDE (AMARYL) 1 MG TAB 1 MILLIGRAM ORAL DAILY. ALLOPURINOL (ZYLOPRIM) 100 MG TAB 200 MILLIGRAM ORAL DAILY. ASPIRIN (ASPIRIN) 81 MG TAB.CHEW 81 MILLIGRAM ORAL DAILY. ATORVASTATIN (LIPITOR) 40 MG TAB 40 MILLIGRAM ORAL DAILY AT 1700. Qty = 30 CARVEDILOL (COREG) 3.125 MG TAB 6.25 MILLIGRAM ORAL TWICE DAILY. Qty = 60 LISINOPRIL (ZESTRIL) 10 MG TAB 10 MILLIGRAM ORAL DAILY. FLUTICASONE PROPIONATE (FLOVENT HFA 44 MCG/ACT) 44 MCG INHALER 2 PUFF INHALATION RT - TWICE DAILY. CETIRIZINE (CETIRIZINE) 10 MG TAB 10 MILLIGRAM ORAL DAILY. ISOSORBIDE MONONITRATE SR (IMDUR) 30 MG TAB.SR.24H 30 MILLIGRAM ORAL DAILY. FAMOTIDINE (PEPCID) 20 MG TAB 20 MILLIGRAM ORAL TWICE DAILY. INSULIN GLARGINE (LANTUS SOLOSTAR (15mL)) 100 UNIT/ML (3 ML) PEN.INJCTR 60 UNITS SUBCUTANEOUS DAILY. Start taking the following new medications: CLOPIDOGREL (PLAVIX) 75 MG TAB 75 MILLIGRAM ORAL DAILY. Qty = 30 No Refills Objective VS/I O Last Documented: Result Date Time Pulse Ox 96 07/13 736 B/P 134/85 07/13 736 B/P Mean 101.2 07/13 736 O2 Delivery Room air 07/13 736 Temp 97.9 07/13 736 Pulse 59 07/13 736 Resp 16 07/13 736 General appearance: alert, awake Head/Eyes: atraumatic, clear cornea, EOMI, normal conjunctiva/sclera, normal eyelids/periorb., normocephalic, PERRL ENT: normal dentition, normal ear left, normal ear right, normal nose, normal pharynx, normal sinus Neck: full range of motion, non-tender, normal thyroid, supple/no meningismus, no bruit/NL carotids, no JVD, no masses or swelling Cardiovascular: normal capillary refill, normal heart sounds Respiratory: clear to auscultation, no distress Abdomen: non-tender, normal bowel sounds, soft, no distention, no guarding, no hernia, no mass/organomegaly, no rebound Extremities: moves all, normal capillary refill, normal range of motion, no edema Musculoskeletal: normal inspection, painless range of motion Neuro/RN PRIMARY CARE: alert, oriented X 3 Skin: dry, intact Psychiatry: normal affect, normal judgment/insight, normal mood, not homicidal, not suicidal Results Findings/Data: Laboratory Tests: 07/13 07/13 07/12 07/12 0900 0811 1655 1049 Chemistry Sodium (134 - 147 mmol/L) 137 Potassium (3.4 - 5.0 mmol/L) 4.8 Chloride (100 - 108 mmol/L) 109 H Carbon Dioxide (21 - 32 mmol/L) 21 Anion Gap (4.0 - 15.0 GAP calc) 7.0 BUN (7 - 18 MG/DL) 26 H Creatinine (0.6 - 1.0 MG/DL) 1.4 H Glomerular Filtr Rate (>60 estGFR) 40 L Glucose (70 - 110 MG/DL) 244 H POC Glucose (70 - 110 mg/dL) 159 H 166 H Calcium (8.5 - 10.1 MG/DL) 8.9 Coagulation Activated Coag Time (74 - 125 SECistat) 305 H Discharge Instructions PCP PCP follow-up: PCP: Jihan Calixto DO Discharge to: Home/Self Care Additional Discharge Routines: PCP Follow-Up, Videotape Recording Engineer Follow-Up Diet: Cardiac Activity: As Tolerated Follow-up Appointments PCP follow-up: PCP: Jihan Calixto DO PCP follow up timeframe: In 1-2 weeks Consulting provider 1: Provider 1: Caitlin Wood MD Specialty: CardiologyInterventional Consult follow up timeframe: In 1-2 weeks Quality: Discharge Current Medications Current medication review: I attest that the foregoing medication list in the medical record is true, accurate, and complete to the best of my knowledge. at 2058 RPT #: [id number] END OF REPORT [facility] 2022-07-13 09:24:00 [facility] Cardiology Progress Note REPORT#:[id number] REPORT STATUS: Signed DATE:07/13/22 TIME:923 PATIENT: ANNIE CLAROS UNIT #: [id number] ROOM/BED: [place] [id number] : [birth year] AGE: 72 SEX: F ATTEND: Caitlin Wood MD ADM AUTHOR: Daria Muhammad AGACNP * ALL edits or amendments must be made on the electronic/computer document * Subjective Patient reports: No: complaints. Objective General VS/I O: Vital Signs Date Temp Pulse Resp B/P B/P Mean Pulse Ox FiO2 07/12-07/13 36.1-37.2 59-85 14-20 114-181/70-98 85.6-101.2 96-100 PATIENT WEIGHT: Weight (lb): 181 Weight (oz): 6.09 Weight (kg): 82.273 Medications: Active Meds + DC'd Last 24 Hrs Allopurinol (ZYLOPRIM) 200 MG DAILY PO Aspirin (ECOTRIN) 81 MG DAILY PO Clopidogrel Bisulfate (Plavix) 75 MG DAILY PO Insulin Glargine (Lantus/Semglee) 60 UNIT DAILY SUBQ Glimepiride (AmaryL) 2 MG C BK PO Levothyroxine Sodium (SYNTHROID) 50 MCG DAILY@0700 PO Atorvastatin Calcium (LIPITOR) 40 MG BEDTIME PO Insulin Human Lispro (HUMALOG) S/SCALE LOW AC HS SUBQ Dextrose/Water (Dextrose 50% W SYRINGE) 50 ML ASDIR PRN IV (CKD) Carvedilol (COREG) 6.25 MG BID PO Sodium Chloride (0.9% Sodium Chloride) 1,000 ML .[id number] IV Status post: pci to RCA Physical Exam General appearance: alert, awake, oriented, no acute distress, pleasant, conversational, mental status normal Neck: full range of motion, non-tender, normal thyroid, supple/no meningismus, no bruit/NL carotids, no JVD, no lymphadenopathy, no masses or swelling Cardiovascular: CV assessment: regular rate and rhythm, BP pulses = bilaterally Respiratory: clear to auscultation, no distress Abdomen: soft, non-tender, normal bowel sounds, no distention Genitourinary: no flank pain, no urinary catheter Upper extremity: Right radial site: intact, no bleeding, no drainage, no ecchymosis, no hematoma Lower extremity: LE assessment: no edema Musculoskeletal: normal inspection Neuro/RN PRIMARY CARE: alert, oriented X 3 Skin: dry, intact, normal color, normal temperature Psychiatry: normal affect, normal mood Results Findings/Data: Laboratory Tests 07/13 07/12 0811 1655 Chemistry POC Glucose (70 - 110 mg/dL) 159 H 166 H Laboratory Tests 07/12 1049 Coagulation Activated Coag Time (74 - 125 SECistat) 305 H Results: labs reviewed, vital signs reviewed, rhythm personally rev'd Telemetry Interpretation: sinus rhythm Diagnosis, Assessment Plan Plan discussed with: patient, daughter, nurse Free Text DxA P Notes Free Text DxA P Notes: Assessment: -Severe single-vessel coronary disease of the mid LCx status post successful IVUS guided PCI with 2 PATRICK -Uncontrolled hypertension and elevated LVEDP suggestive of diastolic dysfunction Plan: -Routine post-cath care and observation -TR band removal in 2 hr per protocol -Antiplatelets: Aspirin Plavix for at least 12 months then aspirin daily for life -Beta blockers -High intensity statin -IV hydration overnight given her CKD -EKG stat post PCI -Monitor overnight in the telemetry bed -Cardiac rehab discussed with the patient and ordered -Aggressive risk factor modification -Follow-up in clinic with Dr. Wood in 1-2 weeks at 1511 at 7528 RPT #: [id number] END OF REPORT [facility] 2022-07-12 12:06:00 [facility] ([facility]) Hospitalist History Physical REPORT#:[id number] REPORT STATUS: Signed DATE:07/12/22 TIME:1206 PATIENT: ANNIE CLAROS UNIT #: [id number] ROOM/BED: [place] [address] : [birth year] AGE: 72 SEX: F ATTEND: Caitlin Wood MD ADM AUTHOR: Rosalinda Cr MD * ALL edits or amendments must be made on the electronic/computer document * History of Present Illness HPI Chief complaint: Angina PCP: PCP: Jihan Calixto DO HPI: Ms. Claros is 72 year old female with history of hypertension, CKD III who presented to the hospital for cardiac cath due to angina and positive stress test. She is s/p PCI and denied any complaints at this time. Informant/historian: patient, family/other at bedside History Past Medical Surgical Hx Additional medical history: CAD Hypertension CKD 3 Glaucoma Diabetes mellitus Additional surgical history: Hysterectomy Breast lumpectomy Social History Alcohol use: Denies EtOH use Drug use: Denies recreational drugs Smoking status for patients 13 years old or older: Never Smoker Medication/Allergy-Vaccine Hx Medications: Home Medications: SUCRALFATE (CARAFATE) 1 GM PO AC HS LEVOTHYROXINE (SYNTHROID) 50 MCG PO DAILY GLIMEPIRIDE (AMARYL) 1 MG PO DAILY ALLOPURINOL (ZYLOPRIM) 200 MG PO DAILY ASPIRIN 81 MG PO DAILY LISINOPRIL (ZESTRIL) 10 MG PO DAILY FLUTICASONE PROPIONATE (FLOVENT HFA 44 MCG/ACT) 2 PUFF INH RTBID CETIRIZINE 10 MG PO DAILY ISOSORBIDE MONONITRATE SR (IMDUR) 30 MG PO DAILY FAMOTIDINE (PEPCID) 20 MG PO BID INSULIN GLARGINE (LANTUS SOLOSTAR (15mL)) 60 UNITS SUBQ DAILY ATORVASTATIN (LIPITOR) 40 MG PO DAILY 1700 CARVEDILOL (COREG) 6.25 MG PO BID Allergies: Coded Allergies: Penicillins (Intermediate, RASH 05/13/17) Review of Systems All systems rev neg: except as noted Physical Exam VS/I O: Vital Signs Date Temp Pulse Resp B/P B/P Mean Pulse Ox FiO2 07/12 97.4-97.5 73-77 20 194/70-87 99-100 Last Documented: Result Date Time Pulse Ox 100 07/12 07 B/P 194/70 07/12 0726 Temp 97.5 07/12 0726 Pulse 73 07/12 0726 Resp 20 07/12 07 O2 Delivery Room air 07/12 0717 Patient Weight and BMI Weight (kg): 82.273 BMI: 32.1 General appearance: alert, awake Head/Eyes: atraumatic, clear cornea, EOMI, normal conjunctiva/sclera, normal eyelids/periorb., normocephalic, PERRL ENT: normal dentition, normal ear left, normal ear right, normal nose, normal pharynx, normal sinus Neck: full range of motion, non-tender, normal thyroid, supple/no meningismus, no bruit/NL carotids, no JVD, no masses or swelling Cardiovascular: normal capillary refill, normal heart sounds Respiratory: clear to auscultation, no distress Abdomen: non-tender, normal bowel sounds, soft, no distention, no guarding, no hernia, no mass/organomegaly, no rebound Abdomen quadrants: LLQ normal bowel sounds, LUQ normal bowel sounds, RLQ normal bowel sounds, RUQ normal bowel sounds Extremities: moves all, normal capillary refill, normal range of motion, no edema Musculoskeletal: normal inspection, painless range of motion Neuro/RN PRIMARY CARE: alert, oriented X 3 Skin: dry, intact Psychiatry: normal affect, normal judgment/insight, normal mood, not homicidal, not suicidal Results Findings/Data: Laboratory Tests: 07/12 1049 Coagulation Activated Coag Time (74 - 125 SECistat) 305 H Radiology data: Recent Impressions: RADIOLOGY - XR CHEST 1 V 07/12 0738 Report Impression - Status: SIGNED Entered: 07/12/2022 0754 IMPRESSION: 1. No radiographic evidence of acute cardiopulmonary process. Impression By: [email or web address] - Abiodun Gómez MD Diagnosis, Assessment Plan Free Text A P: Ms. Claros is 72 year old female pw angina s/p PCI. #Angina #CAD-s/p PCI. -PATRICK initiated, educated on need for compliance. -College Specialist following. -continue OMT #CKDIII- post contrast exposure -IV hydration overnight. -Repeat cr in a.m #Hypertension- resume antihypertensive #DM- resume insulin and glimperide. -BG AC HS and cover with ISS -Recent Hgba1c at 9.2 DVT prophylaxis-SCD GI prophylaxis-Pepcid Patient is full code. Discussed with patient and daughter at bedside. Plan discussed with: patient, daughter Quality: Gen Med Crit Care Current Medications Current medication review: I attest that the foregoing medication list in the medical record is true, accurate, and complete to the best of my knowledge. at 1501 RPT #: [id number] END OF REPORT [facility] 2022-07-12 12:01:00 [facility] ([facility] DT Operative Note REPORT#:[id number] REPORT STATUS: Signed DATE:07/12/22 TIME:1201 PATIENT: ANNIE CLAROS UNIT #: [id number] ROOM/BED: : 54 AGE: 72 SEX: F ATTEND: Caitlin Wood MD ADM AUTHOR: Caitlin Wood MD * ALL edits or amendments must be made on the electronic/computer document * Operative Report Operative Note Note: Cardiac catheterization procedure note Location: [facility] catheterization Lab Date of service: July 12, 2022 Attending physician: Caitlin Wood MD Pre-operative diagnosis: Angina despite medical therapy with abnormal stress test Post-operative diagnosis: Same as above in addition to: 1. Severe single-vessel coronary disease of the mid LCx status post IVUS guided PCI with 2 PATRICK 2. Uncontrolled hypertension elevated LVEDP Procedure: - Moderate sedation -Right radial artery access, 5/6 Latvian slender sheath -Selective coronary angiography -Left heart catheterization -IVUS of the LCx -Successful PCI to the LCx with 3.0 x 28 mm and 2.25 x 24 mm Synergy XD PATRICK -67338 Moderate sedation, initial 15 minutes -96534 CAG+LHC -67417 PATRICK LCx -20985(+) IVUS LCx Findings: Coronary Anatomy: -Left main: Angiographically normal -LAD: Patent with minimal luminal irregularities -Left circumflex: Large dominant vessel, OM1 is patent. At the ostium of the OM there is a focal 80-90% stenosis. OM 2 is patent. RPDA is patent. -Right coronary artery: Small nondominant. Patent Hemodynamics: Ao pressure: 148/85 mmHg LVEDP: 25 mmHg No gradient upon pullback from the LV to AO Procedure details: After patient identification informed consent and preprocedural timeout. Conscious moderate sedation was ordered and monitored by or. The right radial artery site was draped and prepped in the usual sterile fashion. Local anesthesia with 1% lidocaine was used to anesthetize the right radial artery access site. Using Seldinger technique a 5/6 Latvian slender sheath was introduced over the wire into the right radial artery without difficulty. A cocktail of verapamil and nitroglycerin was given IA as above. A 5 Latvian [place] 4.0 catheter was introduced through the RRA sheath to the ascending aorta over the wire without difficulty. IV heparin was given. The catheter was introduced into the LV across the aortic valve over a J-wire and an LVEDP was directly measured. Pullback was done. The catheter was then repositioned to engage the left main coronary artery selectively and cine images obtained. The catheter was then repositioned to selectively engage the RCA and cine images obtained. All catheters and wires were removed. After review of the coronary angiogram and clinical data, I decided to proceed with PCI of the LCx. The lesion was focal 80 -90%. Utilizing the 6 Latvian XB 3.0 guiding catheter, I selectively engaged the left. IV heparin was used for anticoagulation and ACT was measured periodically throughout theprocedure to maintain an ACT of 200-300 seconds. After adequate anticoagulation a run-through coronary wire was used to cross the lesion into the distal segment. I then introduced a [place] IVUS Latimer eye over the wire and examined the entirety of the LCx that showed a moderate to moderately calcified severe lesion in the mid LCx that extends to the proximal segment. There is significant plaque burden with about 80-90% stenosis. I decided to proceed with PCI of the LCx without atherectomy. A 3.0 x 12 mm NC balloon was used to predilate the lesion. Then a 3.0 x 28 mm Synergy XD drug-eluting stent was deployed. After deployment the stent and the stent there is distal edge dissection with compromised flow in the distal LCx so I decided to treat catheter introduced a 2.25 x 24 mm Synergy XD PATRICK and deployed at successfully in overlapping fashion distally. I then postdilated the overlapping segment. I then examined the stents again with IVUS that showed some areas of underexpansion so I postdilated the stents with a 2.5 and a 3.0 mm NC balloons. Post PCI IVUS confirmed no evidence of edge dissection with well opposed stent struts with good expansion. IC nitroglycerin was given. At the conclusion of PCI, Cine images were obtained and showed adequate stent expansion and apposition with a LAKHWINDER-3 flow and 0% residual stenosis. All catheters and wires were removed. The radial sheath was removed and a TR band was applied with excellent hemostasis to be removed later in the recovery. The patient tolerated the procedure very well without complications and was transferred to post-cath unit for observation. Please refer to the radiation tech and nurses notes for further details. Total contrast used: 60 mL Isovue Complications: No immediate complication Blood loss: 20 cc Disposition: PACU Assessment: -Severe single-vessel coronary disease of the mid LCx status post successful IVUS guided PCI with 2 PATRICK -Uncontrolled hypertension and elevated LVEDP suggestive of diastolic dysfunction Plan: -Routine post-cath care and observation -TR band removal in 2 hr per protocol -Antiplatelets: Aspirin Plavix for at least 12 months then aspirin daily for life -Beta blockers -High intensity statin -IV hydration overnight given her CKD -EKG stat post PCI -Monitor overnight in the telemetry bed -Cardiac rehab discussed with the patient and ordered -Aggressive risk factor modification -Follow-up in clinic with me in 1-2 weeks -Family was updated with the details and the results of the procedure. All questions and concerns were addressed. Caitlin Wood MD Attending College Specialist [facility] Cardiology at [address] [facility] #: [id number] END OF REPORT [facility] 2022 13:39:00 [facility] ([facility]) Hospitalist Discharge Summary REPORT#:[id number] REPORT STATUS: Signed DATE:03/17/22 TIME:1339 PATIENT: ANNIE CLAROS UNIT #: [id number] ROOM/BED: [place] [address] : 52 AGE: 72 SEX: F ATTEND: Rosalinda Cr MD ADM AUTHOR: Rosalinda Cr MD * ALL edits or amendments must be made on the electronic/computer document * General Information Date of admission: Observation Start Date: Date of admission: 03/14/22 Discharge date: 03/17/22 Admission diagnosis: Hypertensive encephalopathy Chronic microvascular infarct Patent foramen ovale Diabetes mellitus Hypertension Fever CKD Discharge diagnosis: Hypertensive encephalopathy Chronic microvascular infarct Patent foramen ovale Diabetes mellitus Hypertension Fever CKD Hospital course: Ms. Claros is 72-year-old female who presented to the hospital with complaints of sudden onset of dysarthria and expressive aphasia. CT head showed small vascular insult in the left parietal lobe and posteriorly medially, possible subacute in nature. MRI of the brain however was unremarkable. Patient was evaluated by neurologist and diagnosed with hypertensive encephalopathy. Her blood pressure was markedly elevated upon presentation which supported the diagnosis as well. Her symptoms did resolve completely. Patient had echocardiogram with bubble study which showed evidence of PFO. COURT was completed and patient was referred outpatient for PFO management. She was followed closely by hypo splasher. Patient has a history of diabetes mellitus with hemoglobin A1c of 9.2 and hypertension. She also had a CKD 3 and the creatinine remained at baseline. She remained hemodynamically stable for discharge and will follow up with her PCP, neurologist and hypo splasher outpatient. Pt. condition on discharge: stable Free Text DxA P Notes Free text DxA P notes: Ms. Claros is 71-year-old female who presented to the hospital with expressive aphasia and dysarthria. #Suspected stroke-CT headWith small vascular insult in the left parietal lobe posteriorly medially, possibly subacute in nature. -MRI of the brain with no infarct -Neurologist consulted. tPA not given due to questionable acute/subacute stroke. -CTA head and neck completed. -Speech therapy, PT/OT. -Echocardiogram with PFO. COURT planned for today -Aspirin, statin. Permissive hypertension. #Diabetes mellitus- hemoglobin A1c 9.2. -Check lipid panel. #Hypertension-blood pressure will be controlled appropriately. For now, allow permissive hypertension. #Fever-unknown etiology. No overt infection. Will monitor closely. #CKD 3-creatinine close to baseline. Avoid nephrotoxin. DVT prophylaxis-SCD GI prophylaxis-Pepcid Patient is full code. Discussed with patient and daughter at bedside. Med Rec Med Rec Discharge meds: Stop taking the following medications: METOPROLOL TARTRATE (LOPRESSOR) 25 MG TAB 12.5 MILLIGRAM ORAL TWICE DAILY. Continue taking these medications: SUCRALFATE (CARAFATE) 1 GM TAB 1 GRAM ORAL BEFORE MEALS AND AT BEDTIME. LEVOTHYROXINE (SYNTHROID) 50 MCG TAB 50 MICROGRAM ORAL DAILY. GLIMEPIRIDE (AMARYL) 1 MG TAB 1 MILLIGRAM ORAL DAILY. LISINOPRIL (ZESTRIL) 5 MG TAB 5 MILLIGRAM ORAL DAILY. ALLOPURINOL (ZYLOPRIM) 100 MG TAB 200 MILLIGRAM ORAL DAILY. LOVASTATIN (MEVACOR) 20 MG TAB 20 MILLIGRAM ORAL TWICE DAILY. ASPIRIN (ASPIRIN) 81 MG TAB.CHEW 81 MILLIGRAM ORAL DAILY. OFLOXACIN (OCUFLOX 0.3% OPHTH SOLN) 0.3 % OPHTH.SOLN Comments: INSTILL 1 DROP INTO THE LEFT EYE THE NIGHT BEFORE SURGERY AND THE MORN; # 5 - SIG Obtained From Lizeth prednisoLONE ACETATE (prednisoLONE ACETATE 1% OPHTH 5 ML) 1 % OPHTH.SUSP 1 DROPS EACH EYE TWICE DAILY. Start taking the following new medications: ATORVASTATIN (LIPITOR) 40 MG TAB 40 MILLIGRAM ORAL DAILY AT 1700. Qty = 30 No Refills CARVEDILOL (COREG) 3.125 MG TAB 6.25 MILLIGRAM ORAL TWICE DAILY. Qty = 60 No Refills Objective VS/I O Last Documented: Result Date Time Pulse Ox 94 03/17 1109 B/P 153/82 03/17 1109 B/P Mean 105.7 03/17 1109 O2 Delivery Room air 03/17 1109 Temp 97.9 03/17 1109 Pulse 72 03/17 1109 Resp 16 03/17 1109 FiO2 21 03/17 08 Head/Eyes: atraumatic, clear cornea, EOMI, normal conjunctiva/sclera, normal eyelids/periorb., normocephalic, PERRL ENT: normal dentition, normal ear left, normal ear right, normal nose, normal pharynx, normal sinus Neck: full range of motion, non-tender, normal thyroid, supple/no meningismus, no bruit/NL carotids, no JVD, no masses or swelling Cardiovascular: normal capillary refill, normal heart sounds Respiratory: clear to auscultation, no distress Abdomen: non-tender, normal bowel sounds, soft, no distention, no guarding, no hernia, no mass/organomegaly, no rebound Extremities: moves all, normal capillary refill, normal range of motion, no edema Musculoskeletal: normal inspection, painless range of motion Neuro/RN PRIMARY CARE: abnormal speech, alert, oriented X 3 Skin: dry, intact Psychiatry: normal affect, normal judgment/insight, normal mood, not homicidal, not suicidal Results Findings/Data: Laboratory Tests: 03/17 03/17 03/17 03/16 1108 0826 0787 2024 Chemistry Sodium (134 - 147 mmol/L) 134 Potassium (3.4 - 5.0 mmol/L) 4.6 Chloride (100 - 108 mmol/L) 104 Carbon Dioxide (21 - 32 mmol/L) 22 Anion Gap (4.0 - 15.0 GAP calc) 8.0 BUN (7 - 18 MG/DL) 20 H Creatinine (0.6 - 1.0 MG/DL) 1.5 H Glomerular Filtr Rate (>60 estGFR) 36 L Glucose (70 - 110 MG/DL) 258 H POC Glucose (70 - 110 mg/dL) 258 H 240 H 232 H Calcium (8.5 - 10.1 MG/DL) 9.8 Magnesium (1.8 - 2.4 MG/DL) 1.8 Discharge Instructions PCP PCP follow-up: PCP: Jihan Calixto DO Discharge to: Home/Self Care Additional Discharge Routines: PCP Follow-Up, Videotape Recording Engineer Follow-Up Diet: Cardiac Activity: Resume Normal Activity, As Tolerated Follow-up Appointments PCP follow-up: PCP: Jihan Calixto DO PCP follow up timeframe: In 1-2 weeks Consulting provider 1: Provider 1: Erick Barrios MD Specialty: Neurology Consult follow up timeframe: In 1-2 weeks at 1632 RPT #: [id number] END OF REPORT [facility] 2022 07:57:00 [facility] Cardiology Progress Note REPORT#:[id number] REPORT STATUS: Signed DATE:03/17/22 TIME:756 PATIENT: ANNIE CLAROS UNIT #: [id number] ROOM/BED: [place] [address] : 52 AGE: 72 SEX: F ATTEND: Rosalinda Cr MD ADM AUTHOR: Daria MuhammadCNP * ALL edits or amendments must be made on the electronic/computer document * Subjective Patient reports: No: complaints. Objective General VS/I O: Vital Signs: Date Time Temp Pulse Resp B/P B/P Pulse O2 O2 Flow FiO2 Mean Ox Delivery Rate 03/17 0728 36.6 76 16 152/77 102.2 97 Room air 03/17 0520 36.6 80 16 132/79 96.9 98 Room air 03/16 2353 36.8 81 17 120/71 87.1 98 Room air 03/16 1918 36.7 79 16 178/81 113.3 99 / 1904 97 Room air 21 03/16 1550 36.6 78 16 166/94 117.9 96 Room air 03/16 1212 64 134/82 99.5 97 / 1138 64 18 128/81 96.4 97 03/16 0810 97 Room air 21 PATIENT WEIGHT: Weight (lb): 180 Weight (oz): 6.04 Weight (kg): 81.818 Medications: Active Meds + DC'd Last 24 Hrs Hydralazine HCl (APRESOLINE) 10 MG Q6H PRN PRN IV Carvedilol (COREG) 3.125 MG BID PO Atorvastatin Calcium (LIPITOR) 40 MG DAILY 1700 PO Insulin Human Lispro (HUMALOG) S/SCALE LOW AC HS SUBQ Aspirin (ASPIRIN CHEWABLE) 81 MG DAILY PO Albumin Human (OPTISON) 3 ML ONCE PRN IV Dextrose/Water (Dextrose 50% W SYRINGE) 50 ML ASDIR PRN IV (CKD) Acetaminophen (TYLENOL EXTRA STRENGTH) 500 MG Q8H PRN PO Physical Exam General appearance: alert, awake, oriented, no acute distress Neck: full range of motion, non-tender, no JVD Cardiovascular: CV assessment: regular rate and rhythm Respiratory: clear to auscultation, no distress Abdomen: soft, non-tender, normal bowel sounds, no distention Genitourinary: no burden Lower extremity: LE assessment: no edema Musculoskeletal: normal inspection Neuro/RN PRIMARY CARE: alert, oriented X 3 Skin: dry, intact Psychiatry: normal affect, normal judgment/insight, normal mood Results Findings/Data: Laboratory Tests 03/16 2025 Chemistry POC Glucose (70 - 110 mg/dL) 232 H Results: no new labs, vital signs reviewed Telemetry Interpretation: sinus rhythm with PACs Diagnosis, Assessment Plan Plan discussed with: patient, daughter Free Text DxA P Notes Free Text DxA P Notes: This is a 71-year-old female with past medical history of hypertension, diabetes mellitus, hyperlipidemia, obesity presenting to ED with acute onset of speech difficulty. tPA was not given per neurology recommendation because of inconclusive CT scan finding and low NIH stroke score. MRI brain done and did not show finding of acute stroke. An echocardiogram with bubble contrast was done as part of a stroke work-up and it showed that there is a possible patent ly ovale. Cardiology is consulted for further cardiac evaluation. The patient reports normal stress test 5 years ago. She reported having some chest discomfort and shortness of breath with physical exertion like during exercise. She denies history of atrial fibrillation but does report that sometimes she wakes up at night with off-and-on palpitation. She had history of wearing Holter monitor in the past but mostly benign findings. 1. Speech difficulty per neuro note "no acute stroke, chronic ischemia, symptoms 2/2 hypertensive encephalopathy" Bubble study showed possible PFO Telemetry monitoring - look for A. fib, atrial flutter COURT confirmed PFO, no intracardiac thrombus -follow outpatient defer antiplatelet recommendation to neurology from our end we recommend event monitor like Zio patch to r/o atrial fibrillation. If there is confirmed afib then will initiate anticoagulation. 2. Exertional dyspnea - ? Anginal equivalent Echo with preserved EF, normal wall motion A1c 9.2, LDL 102, HDL 25, trigylcerides 372 BNP normal stress test outpatient 3. Hypertension need tight control of blood pressure up carvedilol to 6.25 mg BID once creatinine normalized, recommend ACEi or ARB given diabetes 4. Hypomagnesemia replace as needed repeat Mag today - 1.9 5. MEGHAN creatinine 1.7->1.5->1.5 check bmp today 6. Diabetes mellitus A1c 9.2 manage per attending No further cardiac workup Clear to discharge from cardiology standpoint Outpatient f/u with Dr. Wood in 1-2 weeks at 1121 at 1706 RPT #: [id number] END OF REPORT [facility] 2022-03-16 14:49:00 [facility] Neurology Progress Note REPORT#:[id number] REPORT STATUS: Signed DATE:03/16/22 TIME:1449 PATIENT: ANNIE CLAROS UNIT #: [id number] ROOM/BED: [place] [address] : 52 AGE: 72 SEX: F ATTEND: Rosalinda Cr MD ADM AUTHOR: Erick Barrios MD * ALL edits or amendments must be made on the electronic/computer document * Objective General VS: Last Documented: Result Date Time Pulse Ox 97 03/16 1212 B/P 134/82 03/16 1212 B/P Mean 99.5 03/16 1212 Pulse 64 03/16 1212 Resp 18 03/16 1138 FiO2 21 03/16 0810 O2 Delivery Room air 03/16 0810 Temp 36.7 03/16 0727 PATIENT WEIGHT: Weight (lb): 180 Weight (oz): 6.04 Weight (kg): 81.818 Medications Current Home Medications OFLOXACIN (OCUFLOX 0.3% OPHTH SOLN) INSTILL 1 DROP INTO THE LEFT EYE THE NIGHT BEFORE SURGERY AND THE MORN; #5 - SIG Obtained From Lizeth SUCRALFATE (CARAFATE) 1 GM PO AC HS LEVOTHYROXINE (SYNTHROID) 50 MCG PO DAILY GLIMEPIRIDE (AMARYL) 1 MG PO DAILY LISINOPRIL (ZESTRIL) 5 MG PO DAILY ALLOPURINOL (ZYLOPRIM) 200 MG PO DAILY METOPROLOL TARTRATE (LOPRESSOR) 12.5 MG PO BID LOVASTATIN (MEVACOR) 20 MG PO BID ASPIRIN 81 MG PO DAILY Active Meds + DC'd Last 24 Hrs Carvedilol (COREG) 3.125 MG BID PO Benzocaine/Butamben/Tetracaine HCl (CETACAINE SPRAY) 1 APPLIC ONCALL MM (CKD) Lidocaine HCl (XYLOCAINE 2% JELLY) 5 ML ONCALL ENDOTRACH Sodium Chloride (0.9% Sodium Chloride) 500 ML ONCALL IV Magnesium Sulfate (MAGNESIUM 4 GM/SWFI 100 ML) 100 ML ONCE ONE IV (DC) Atorvastatin Calcium (LIPITOR) 40 MG DAILY 1700 PO Fentanyl Citrate (SUBLIMAZE) 100 MCG ASDIR PRN IV Flumazenil (ROMAZICON) 0.2 MG ASDIR PRN IV Midazolam HCl (VERSED) 2 MG ASDIR PRN IV Naloxone HCl (NARCAN) 0.4 MG ASDIR PRN IV Phenol (Chloraseptic [place]) 1 SPRAY ASDIR PRN MM Insulin Human Lispro (HUMALOG) S/SCALE LOW AC HS SUBQ Aspirin (ASPIRIN CHEWABLE) 81 MG DAILY PO Albumin Human (OPTISON) 3 ML ONCE PRN IV Dextrose/Water (Dextrose 50% W SYRINGE) 50 ML ASDIR PRN IV (CKD) Acetaminophen (TYLENOL EXTRA STRENGTH) 500 MG Q8H PRN PO Mental Status Orientation: Yes: to time, to place, to person, to situation. Reflexes Plantar reflexes: Up: Right. Down: Left. Results Findings/Data: Laboratory Tests 03/16 03/16 03/16 03/16 03/15 0723 0450 0450 0450 2040 Chemistry Sodium (134 - 147 mmol/L) 133 L Potassium (3.4 - 5.0 mmol/L) 4.5 Chloride (100 - 108 mmol/L) 101 Carbon Dioxide (21 - 32 mmol/L) 23 Anion Gap (4.0 - 15.0 GAP calc) 9.0 BUN (7 - 18 MG/DL) 20 H Creatinine (0.6 - 1.0 MG/DL) 1.5 H Glomerular Filtr Rate (>60 estGFR) 37 L Glucose (70 - 110 MG/DL) 230 H POC Glucose (70 - 110 mg/dL) 207 H 223 H Hemoglobin A1c (0.0 - 5.7 % A1C) 9.2 H Estim Average Glucose (MG/DLest) 217 Calcium (8.5 - 10.1 MG/DL) 9.3 Magnesium (1.8 - 2.4 MG/DL) 1.4 L NT-Pro-B Natriuret Pep (0 - 100 PG/ML) 75 Triglycerides (0 - 150 MG/DL) 372 H Cholesterol (133 - 200 MG/DL) 178 LDL Cholesterol Measurd (0 - 129 102 MG/DL) Non-HDL Cholesterol (<130 mg/dL) 153 H HDL Cholesterol (40 - 59 MG/DL) 25 L LDL/HDL Ratio (1.48 - 3.22 Avg Ratio) 4.08 H Cholesterol/HDL Ratio (0 RATIO) 7.12 03/15 1632 Chemistry POC Glucose (70 - 110 mg/dL) 272 H Laboratory Tests 03/16 0450 Hematology WBC (3.5 - 11.0 K/mm3) 6.6 RBC (4.70 - 6.10 M/mm3) 3.63 L Hgb (10.4 - 14.9 G/DL) 11.2 Hct (31.5 - 44.1 %) 32.9 MCV (84.5 - 98.6 Fl) 90.6 MCH (27.0 - 34.2 pg) 30.9 MCHC (31.5 - 34.0 G/DL) 34.0 RDW (11.5 - 14.5 SD) 12.9 Plt Count (150 - 450 K/mm3) 203 MPV (7.0 - 10.5 fL) 11.80 H Neut % (Auto) (40 - 76 %) 54.3 Lymph % (Auto) (20.5 - 51.1 %) 29.7 Bartholomew % (Auto) (1.7 - 9.3 %) 9.2 Eos % (Auto) (0.0 - 6.0 %) 5.4 Baso % (Auto) (0.0 - 2.0 %) 0.8 Neut # (Auto) (1.8 - 7.6 K/mm3) 3.6 Lymph # (Auto) (0.6 - 3.2 K/mm3) 2.0 Bartholomew # (Auto) (0.3 - 1.1 K/mm3) 0.6 Eos # (Auto) (0.0 - 0.4 K/mm3) 0.4 Baso # (Auto) (0.0 - 0.1 K/mm3) 0.1 Abs Immat Gran (auto) (0.00 - 0.03 x10 3/uL) 0.04 H Add Manual Diff (CRITERIA DIFF/SCN) NO Immature Gran % (0.0 - 5.0 %) 0.6 Nucleated RBC % (0.0 - 1.0 /100WBC%) 0.0 Results: labs reviewed, vital signs reviewed, current med profile rev'd Diagnosis, Assessment Plan Free Text A P: 71-year-old female admitted with complaints of speech difficulties, headaches and vision changes. CT of the brain -negative for acute infarct - No territorial infarction or space-occupying process. No intracranial hemorrhage Difficult to age characterize small vascular insult in the left parietal lobe posteriorly medially somewhat in a watershed distribution possibly subacute in age. MRI of the brain -negative for acute infarct. CT head and neck - Normal CTA head. Mild calcified plaque at the proximal right ICA and at the left carotid bulb, resulting in up to 10% stenosis on each side. otherwise, unremarkable CTA neck. Diagnosis: 1. Hypertensive encephalopathy 2. Chronic ischemic infarct 3. Diabetes mellitus 4. CKD 4. Hyponatremia Plan: Telemetry Reviewed imaging results Optimize blood pressure control Discussed with patient and patient's daughter Supportive care. Neurology to follow Thank you very much for the consult at 1309 RPT #: [id number] END OF REPORT [facility] 2022-03-16 13:02:00 [id number] [facility] [id number] [place] [id number] PATIENT NAME: ANNIE CLAROS ADMIT DATE: 03/14/22 ACCOUNT NO: [id number] ROOM NO: [facility] AGE: 71 REPORT TYPE: eTRANSESOPHAGEL REPORT SEX: F ADMITTING PHYSICIAN: Rosalinda Cr MD ATTENDING PHYSICIAN: Rosalinda Cr MD *[facility]* [address] [place], [place] [address] Transesophageal Echocardiogram Patient: Annie Claros Study Date: 03/16/2022 BP: Location: [facility] URN: [id number] : 1950 Age: 71 Height: 65 in / 165 cm Gender: F Weight: 169 lb / 76.8 kg BMI/BSA: 28.2 kg/m 2 / 1.9 m 2 *Ordering Physician: * Daria Muhammad *Interpreting Physician: * Caitlin Wood MD *Hydrodynamics Professor: * Allison Cedeño Indications: CVA, PFO. Study data: Procedure: Transesophageal echocardiography was performed. An adult multiplane transesophageal probe was inserted by the attending hypo splasher without difficulty. Image quality was adequate. The transesophageal probe was removed. Transthoracic echocardiography was performed. Image quality was excellent. Complete 2D, complete spectral Doppler, and color Doppler. No complications. Findings Left ventricle: The cavity size is normal. Right ventricle: The cavity size is normal. Left atrium: There is no evidence of a thrombus in the atrial cavity or appendage. Right atrium: The atrium is normal in size. Atrial septum: There is a small patent foramen ovale. Doppler in the PATIENT NAME: ANNIE CLAROS baseline state, shows a [id number]-[id number] atrial level shunt. Aorta: The aortic root is not dilated. Aortic valve: The valve is structurally normal. The valve is trileaflet. Cusp separation is normal. Transvalvular velocity is within the normal range. There is no evidence of stenosis. There is no regurgitation. Mitral valve: There is mild regurgitation. Tricuspid valve: There is no significant regurgitation. Pulmonic valve: Not well visualized. There is no significant regurgitation. Pericardium: There is no pericardial effusion. Conclusions Summary: 1. Left ventricle: The cavity size is normal. 2. Left atrium: There is no evidence of a thrombus in the atrial cavity or appendage. 3. Atrial septum: There is a small patent foramen ovale. Doppler in the baseline state, shows a [id number]-[id number] atrial level shunt. Prepared and electronically signed by Caitlin Wood MD 03/16/2022 13:02 at 1302 PATIENT NAME: ANNIE CLAROS [facility] 2022-03-16 09:08:00 [facility] ([facility]) Hospitalist Progress Note REPORT#:[id number] REPORT STATUS: Signed DATE:03/16/22 TIME:907 PATIENT: ANNIE CLAROS UNIT #: [id number] ROOM/BED: S203-1 : 52 AGE: 71 SEX: F ATTEND: Rosalinda Cr MD ADM AUTHOR: Rosalinda Cr MD * ALL edits or amendments must be made on the electronic/computer document * Subjective Chief complaint: Speech is improving. for COURT Objective General VS/I O: Vital Signs: Date Time Temp Pulse Resp B/P B/P Pulse O2 O2 Flow FiO2 Mean Ox Delivery Rate 03/16 0727 98.1 64 15 117/72 86.8 97 Room air 03/16 0434 97.7 70 20 125/77 93.1 94 03/16 0003 98.1 79 20 127/80 95.7 95 03/15 1957 97 Room air 21 03/15 1948 98.2 75 19 122/76 91.6 97 03/15 1600 96 Room air 21 03/15 1513 98.0 80 18 131/74 93 97 03/15 0916 97.8 86 18 112/74 86 97 24 hour I O ending at 0700: 03/16 0700 03/15 1900 Intake Total 100 Output Total Balance 100 Intake, Oral 100 Patient 81.818 kg Weight Weight Stated/Reported Measurement Method PATIENT WEIGHT: Weight (lb): 180 Weight (oz): 6.04 Weight (kg): 81.818 Medications: Active Meds + DC'd Last 24 Hrs Magnesium Sulfate (MAGNESIUM 4 GM/SWFI 100 ML) 100 ML ONCE ONE IV Atorvastatin Calcium (LIPITOR) 40 MG DAILY 1700 PO Fentanyl Citrate (SUBLIMAZE) 100 MCG ASDIR PRN IV Flumazenil (ROMAZICON) 0.2 MG ASDIR PRN IV Midazolam HCl (VERSED) 2 MG ASDIR PRN IV Naloxone HCl (NARCAN) 0.4 MG ASDIR PRN IV Phenol (Chloraseptic [place]) 1 SPRAY ASDIR PRN MM Insulin Human Lispro (HUMALOG) S/SCALE LOW AC HS SUBQ Aspirin (ASPIRIN CHEWABLE) 81 MG DAILY PO Albumin Human (OPTISON) 3 ML ONCE PRN IV Dextrose/Water (Dextrose 50% W SYRINGE) 50 ML ASDIR PRN IV (CKD) Acetaminophen (TYLENOL EXTRA STRENGTH) 500 MG Q8H PRN PO Physical Exam General appearance: alert, awake Head/Eyes: atraumatic, clear cornea, EOMI, normal conjunctiva/sclera, normal eyelids/periorb., normocephalic, PERRL ENT: normal dentition, normal ear left, normal ear right, normal nose, normal pharynx, normal sinus Neck: full range of motion, non-tender, normal thyroid, supple/no meningismus, no bruit/NL carotids, no JVD, no masses or swelling Cardiovascular: normal capillary refill, normal heart sounds Respiratory: clear to auscultation, no distress Abdomen: non-tender, normal bowel sounds, soft, no distention, no guarding, no hernia, no mass/organomegaly, no rebound Extremities: moves all, normal capillary refill, normal range of motion, no edema Musculoskeletal: normal inspection, painless range of motion Neuro/RN PRIMARY CARE: abnormal speech, alert, oriented X 3 Skin: dry, intact Psychiatry: normal affect, normal judgment/insight, normal mood, not homicidal, not suicidal Results Findings/Data: Laboratory Tests 03/16 03/16 03/16 03/16 03/15 0723 0450 0450 0450 2040 Chemistry Sodium (134 - 147 mmol/L) 133 L Potassium (3.4 - 5.0 mmol/L) 4.5 Chloride (100 - 108 mmol/L) 101 Carbon Dioxide (21 - 32 mmol/L) 23 Anion Gap (4.0 - 15.0 GAP calc) 9.0 BUN (7 - 18 MG/DL) 20 H Creatinine (0.6 - 1.0 MG/DL) 1.5 H Glomerular Filtr Rate (>60 estGFR) 37 L Glucose (70 - 110 MG/DL) 230 H POC Glucose (70 - 110 mg/dL) 207 H 223 H Hemoglobin A1c (0.0 - 5.7 % A1C) 9.2 H Estim Average Glucose (MG/DLest) 217 Calcium (8.5 - 10.1 MG/DL) 9.3 Magnesium (1.8 - 2.4 MG/DL) 1.4 L NT-Pro-B Natriuret Pep (0 - 100 PG/ML) 75 Triglycerides (0 - 150 MG/DL) 372 H Cholesterol (133 - 200 MG/DL) 178 LDL Cholesterol Measurd (0 - 129 102 MG/DL) Non-HDL Cholesterol (<130 mg/dL) 153 H HDL Cholesterol (40 - 59 MG/DL) 25 L LDL/HDL Ratio (1.48 - 3.22 Avg Ratio) 4.08 H Cholesterol/HDL Ratio (0 RATIO) 7.12 03/15 03/15 1632 1043 Chemistry POC Glucose (70 - 110 mg/dL) 272 H 135 H Laboratory Tests 03/16 0450 Hematology WBC (3.5 - 11.0 K/mm3) 6.6 RBC (4.70 - 6.10 M/mm3) 3.63 L Hgb (10.4 - 14.9 G/DL) 11.2 Hct (31.5 - 44.1 %) 32.9 MCV (84.5 - 98.6 Fl) 90.6 MCH (27.0 - 34.2 pg) 30.9 MCHC (31.5 - 34.0 G/DL) 34.0 RDW (11.5 - 14.5 SD) 12.9 Plt Count (150 - 450 K/mm3) 203 MPV (7.0 - 10.5 fL) 11.80 H Neut % (Auto) (40 - 76 %) 54.3 Lymph % (Auto) (20.5 - 51.1 %) 29.7 Bartholomew % (Auto) (1.7 - 9.3 %) 9.2 Eos % (Auto) (0.0 - 6.0 %) 5.4 Baso % (Auto) (0.0 - 2.0 %) 0.8 Neut # (Auto) (1.8 - 7.6 K/mm3) 3.6 Lymph # (Auto) (0.6 - 3.2 K/mm3) 2.0 Bartholomew # (Auto) (0.3 - 1.1 K/mm3) 0.6 Eos # (Auto) (0.0 - 0.4 K/mm3) 0.4 Baso # (Auto) (0.0 - 0.1 K/mm3) 0.1 Abs Immat Gran (auto) (0.00 - 0.03 x10 3/uL) 0.04 H Add Manual Diff (CRITERIA DIFF/SCN) NO Immature Gran % (0.0 - 5.0 %) 0.6 Nucleated RBC % (0.0 - 1.0 /100WBC%) 0.0 Radiology data: Recent Impressions: MAGNETIC RESONANCE IMAGING - MRI BRAIN W/O CONTRAST 03/15 1100 Report Impression - Status: SIGNED Entered: 03/15/2022 1147 IMPRESSION: No acute intracranial process seen. Impression By: [email or web address] Greg Lance M.D. Diagnosis, Assessment Plan Orders: Procedure Date/time Status REGULAR DIET 03/16 L Active THER ACTIVIT DIR 15 MIN 03/16 1554 Active GAIT TRAINING 15 MIN 03/16 155 Active EKG 03/14 2146 Active Free Text DxA P Notes Free text DxA P notes: Ms. Claros is 71-year-old female who presented to the hospital with expressive aphasia and dysarthria. #Suspected stroke-CT headWith small vascular insult in the left parietal lobe posteriorly medially, possibly subacute in nature. -MRI of the brain with no infarct -Neurologist consulted. tPA not given due to questionable acute/subacute stroke. -CTA head and neck completed. -Speech therapy, PT/OT. -Echocardiogram with PFO. COURT planned for today -Aspirin, statin. Permissive hypertension. #Diabetes mellitus- hemoglobin A1c 9.2. -Check lipid panel. #Hypertension-blood pressure will be controlled appropriately. For now, allow permissive hypertension. #Fever-unknown etiology. No overt infection. Will monitor closely. #CKD 3-creatinine close to baseline. Avoid nephrotoxin. DVT prophylaxis-SCD GI prophylaxis-Pepcid Patient is full code. Discussed with patient and daughter at bedside. at 1601 RPT #: [id number] END OF REPORT [facility] 2022-03-16 08:43:00 [facility] ([facility] Cardiology Progress Note REPORT#:[id number] REPORT STATUS: Signed DATE:03/16/22 TIME:0843 PATIENT: ANNIE CLAROS UNIT #: [id number] ROOM/BED: [place] [address] : 52 AGE: 72 SEX: F ATTEND: Rosalinda Cr MD ADM AUTHOR: Daria Muhammad * ALL edits or amendments must be made on the electronic/computer document * Subjective Patient reports: No: complaints. Objective General VS/I O: 24 hour I O ending at 0700: 03/16 0700 03/15 1900 Intake Total 100 Output Total Balance 100 Intake, Oral 100 Patient 81.818 kg Weight Weight Stated/Reported Measurement Method Vital Signs: Date Time Temp Pulse Resp B/P B/P Pulse O2 O2 Flow FiO2 Mean Ox Delivery Rate 03/16 727 36.7 64 15 117/72 86.8 97 Room air 03/16 0434 36.5 70 20 125/77 93.1 94 03/16 0003 36.7 79 20 127/80 95.7 95 03/15 1957 97 Room air 21 03/158 36.8 75 19 122/76 91.6 97 03/15 1600 96 Room air 21 03/15 1513 36.7 80 18 131/74 93 97 03/15 0916 36.6 86 18 112/74 86 97 PATIENT WEIGHT: Weight (lb): 180 Weight (oz): 6.04 Weight (kg): 81.818 Medications: Active Meds + DC'd Last 24 Hrs Atorvastatin Calcium (LIPITOR) 40 MG DAILY 1700 PO Fentanyl Citrate (SUBLIMAZE) 100 MCG ASDIR PRN IV Flumazenil (ROMAZICON) 0.2 MG ASDIR PRN IV Midazolam HCl (VERSED) 2 MG ASDIR PRN IV Naloxone HCl (NARCAN) 0.4 MG ASDIR PRN IV Phenol (Chloraseptic [place]) 1 SPRAY ASDIR PRN MM Insulin Human Lispro (HUMALOG) S/SCALE LOW AC HS SUBQ Aspirin (ASPIRIN CHEWABLE) 81 MG DAILY PO Albumin Human (OPTISON) 3 ML ONCE PRN IV Dextrose/Water (Dextrose 50% W SYRINGE) 50 ML ASDIR PRN IV (CKD) Acetaminophen (TYLENOL EXTRA STRENGTH) 500 MG Q8H PRN PO Physical Exam General appearance: obese, alert, awake, oriented, no acute distress Neck: full range of motion, non-tender, no JVD Cardiovascular: CV assessment: regular rate and rhythm Respiratory: clear to auscultation, no distress Abdomen: soft, non-tender, normal bowel sounds, no distention Genitourinary: no burden Lower extremity: LE assessment: no edema Musculoskeletal: normal inspection Neuro/RN PRIMARY CARE: alert, oriented X 3 Skin: dry, intact Psychiatry: normal affect, normal judgment/insight, normal mood Results Findings/Data: Laboratory Tests 03/16 03/16 03/16 03/16 03/15 0723 0450 0450 0450 2040 Chemistry Sodium (134 - 147 mmol/L) 133 L Potassium (3.4 - 5.0 mmol/L) 4.5 Chloride (100 - 108 mmol/L) 101 Carbon Dioxide (21 - 32 mmol/L) 23 Anion Gap (4.0 - 15.0 GAP calc) 9.0 BUN (7 - 18 MG/DL) 20 H Creatinine (0.6 - 1.0 MG/DL) 1.5 H Glomerular Filtr Rate (>60 estGFR) 37 L Glucose (70 - 110 MG/DL) 230 H POC Glucose (70 - 110 mg/dL) 207 H 223 H Hemoglobin A1c (0.0 - 5.7 % A1C) 9.2 H Estim Average Glucose (MG/DLest) 217 Calcium (8.5 - 10.1 MG/DL) 9.3 Magnesium (1.8 - 2.4 MG/DL) 1.4 L NT-Pro-B Natriuret Pep (0 - 100 PG/ML) 75 Triglycerides (0 - 150 MG/DL) 372 H Cholesterol (133 - 200 MG/DL) 178 LDL Cholesterol Measurd (0 - 129 MG/DL) 102 Non-HDL Cholesterol (<130 mg/dL) 153 H HDL Cholesterol (40 - 59 MG/DL) 25 L LDL/HDL Ratio (1.48 - 3.22 Avg Ratio) 4.08 H Cholesterol/HDL Ratio (0 RATIO) 7.12 03/15 03/15 1632 1043 Chemistry POC Glucose (70 - 110 mg/dL) 272 H 135 H Laboratory Tests 03/16 0450 Hematology WBC (3.5 - 11.0 K/mm3) 6.6 RBC (4.70 - 6.10 M/mm3) 3.63 L Hgb (10.4 - 14.9 G/DL) 11.2 Hct (31.5 - 44.1 %) 32.9 MCV (84.5 - 98.6 Fl) 90.6 MCH (27.0 - 34.2 pg) 30.9 MCHC (31.5 - 34.0 G/DL) 34.0 RDW (11.5 - 14.5 SD) 12.9 Plt Count (150 - 450 K/mm3) 203 MPV (7.0 - 10.5 fL) 11.80 H Neut % (Auto) (40 - 76 %) 54.3 Lymph % (Auto) (20.5 - 51.1 %) 29.7 Bartholomew % (Auto) (1.7 - 9.3 %) 9.2 Eos % (Auto) (0.0 - 6.0 %) 5.4 Baso % (Auto) (0.0 - 2.0 %) 0.8 Neut # (Auto) (1.8 - 7.6 K/mm3) 3.6 Lymph # (Auto) (0.6 - 3.2 K/mm3) 2.0 Bartholomew # (Auto) (0.3 - 1.1 K/mm3) 0.6 Eos # (Auto) (0.0 - 0.4 K/mm3) 0.4 Baso # (Auto) (0.0 - 0.1 K/mm3) 0.1 Abs Immat Gran (auto) (0.00 - 0.03 x10 3/uL) 0.04 H Add Manual Diff (CRITERIA DIFF/SCN) NO Immature Gran % (0.0 - 5.0 %) 0.6 Nucleated RBC % (0.0 - 1.0 /100WBC%) 0.0 Laboratory Tests 03/16 0450 Chemistry Magnesium (1.8 - 2.4 MG/DL) 1.4 L Radiology data: Recent Impressions: MAGNETIC RESONANCE IMAGING - MRI BRAIN W/O CONTRAST 03/15 1100 Report Impression - Status: SIGNED Entered: 03/15/2022 1147 IMPRESSION: No acute intracranial process seen. Impression By: [email or web address] Greg Lance M.D. Telemetry Interpretation: sinus rhythm Diagnosis, Assessment Plan Plan discussed with: patient, daughter Free Text DxA P Notes Free Text DxA P Notes: This is a 71-year-old female with past medical history of hypertension, diabetes mellitus, hyperlipidemia, obesity presenting to ED with acute onset of speech difficulty. tPA was not given per neurology recommendation because of inconclusive CT scan finding and low NIH stroke score. MRI brain done and did not show finding of acute stroke. An echocardiogram with bubble contrast was done as part of a stroke work-up and it showed that there is a possible patent ly ovale. Cardiology is consulted for further cardiac evaluation. The patient reports normal stress test 5 years ago. She reported having some chest discomfort and shortness of breath with physical exertion like during exercise. She denies history of atrial fibrillation but does report that sometimes she wakes up at night with off-and-on palpitation. She had history of wearing Holter monitor in the past but mostly benign findings. 1. Speech difficulty Neurology work-up ongoing Bubble study showed possible PFO Telemetry monitoring - look for A. fib, atrial flutter COURT confirmed PFO, no intracardiac thrombus -follow outpatient defer antiplatelet recommendation to neurology per neuro note "no acute stroke, chronic ischemia, symptoms 2/2 hypertensive encephalopathy" from our end we recommend event monitor like Zio patch to r/o atrial fibrillation. If there is confirmed afib then will initiate anticoagulation. 2. Exertional dyspnea - ? Anginal equivalent Echo with preserved EF, normal wall motion Check hemoglobin A1c and lipid panel BNP normal stress test outpatient 3. Hypertension need tight control of blood pressure start carvedilol 3.125 mg BID once creatinine normalized, recommend ACEi or ARB given diabetes 4. Hypomagnesemia Mag 1.4 - replace with Magnesium sulfate 4G IV x1 5. MEGHAN creatinine 1.7->1.5 6. Diabetes mellitus A1c 9.2 manage per attending at 1334 at 1120 RPT #: [id number] END OF REPORT [facility] 2022-03-15 15:10:00 [facility] ([facility]) Neurology Consultation Note REPORT#:[id number] REPORT STATUS: Signed DATE:03/15/22 TIME:151 PATIENT: ANNIE CLAROS UNIT #: [id number] ROOM/BED: [place] [address] : 52 AGE: 71 SEX: F ATTEND: Rosalinda Cr MD ADM AUTHOR: Preeti Crowell HAND TOOL FILER * ALL edits or amendments must be made on the electronic/computer document * Preeti Crowell 03/15/22 1510: History of Present Illness HPI Reason for consult: Speech difficulty HPI: 71-year-old female with a past medical history significant for diabetes mellitus , hypertension and chronic kidney disease who presented to the emergency room with complaints of headache and dysarthria. Patient is accompanied by the daughter present at the bedside she states her symptoms began at 6 PM with a headache. At 6:19 she started having numbness in her right arm and later on difficulty speaking. They got to the emergency room by 10 PM. Patient states that she could not see on the right side. Daughter reports that she just had recent cataract surgery and was using eyedrops. Patient states she is feeling better now and denies any more headaches. Her speech and vision have improved. Daughter reports that her blood pressure has been elevated in the past but she does not check her blood pressure regularly at home. She also reports that 1 to 2 weeks ago her mom was not feeling well but she was unsure what was wrong. Denies any smoking or alcohol use. History - Adult longitudinal Past medical history: Reports: Diabetes mellitus, Hypertension, Dyslipidemia. Additional medical history: Hypertension CKD 3 Glaucoma Diabetes mellitus Additional surgical history: Hysterectomy Breast lumpectomy And surgery Family history: Reports: Hypertension. Alcohol use: Denies EtOH use Drug use: Denies recreational drugs Smoking status: Smoking status for patients 13 years old or older: Never Smoker Allergies: Coded Allergies: Penicillins (Intermediate, RASH 05/13/17) Review of Systems Neuro: Reports: headache, slurred speech, vision change. All systems rev neg: except as marked Objective General VS: Last Documented: Result Date Time Pulse Ox 97 / 1513 B/P 131/74 03/15 1513 B/P Mean 93 03/15 1513 Temp 98.0 03/15 1513 Pulse 80 03/15 1513 Resp 18 03/15 1513 O2 Delivery Room air 03/15 0000 PATIENT WEIGHT: Weight (lb): Weight (oz): Weight (kg): 77.100 Medications Current Home Medications SUCRALFATE (CARAFATE) 1 GM PO AC HS LEVOTHYROXINE (SYNTHROID) 50 MCG PO DAILY GLIMEPIRIDE (AMARYL) 1 MG PO DAILY traMADol (ULTRAM) 50 MG PO Q6H PRN PRN PAIN LISINOPRIL (ZESTRIL) 5 MG PO DAILY ALLOPURINOL (ZYLOPRIM) 200 MG PO DAILY METOPROLOL TARTRATE (LOPRESSOR) 12.5 MG PO BID LOVASTATIN (MEVACOR) 20 MG PO BID ASPIRIN 81 MG PO DAILY Active Meds + DC'd Last 24 Hrs Atorvastatin Calcium (LIPITOR) 40 MG DAILY 1700 PO Fentanyl Citrate (SUBLIMAZE) 100 MCG ASDIR PRN IV Flumazenil (ROMAZICON) 0.2 MG ASDIR PRN IV Midazolam HCl (VERSED) 2 MG ASDIR PRN IV Naloxone HCl (NARCAN) 0.4 MG ASDIR PRN IV Phenol (Chloraseptic [place]) 1 SPRAY ASDIR PRN MM Insulin Human Lispro (HUMALOG) S/SCALE LOW AC HS SUBQ Aspirin (ASPIRIN CHEWABLE) 81 MG DAILY PO Albumin Human (OPTISON) 3 ML ONCE PRN IV Dextrose/Water (Dextrose 50% W SYRINGE) 50 ML ASDIR PRN IV (CKD) Lorazepam (ATIVAN) 0.5 MG ONCE ONE PO (DC) Acetaminophen (TYLENOL EXTRA STRENGTH) 500 MG Q8H PRN PO Acetaminophen (TYLENOL EXTRA STRENGTH) 500 MG ONCE ONE PO (DC) Aspirin (ASPIRIN) 325 MG ONCE ONE PO (DC) Lorazepam (ATIVAN) 0.5 MG ONCE ONE PO (DC) Labetalol HCl (TRANDATE) 10 MG ONCE ONE IV (DC) Sodium Chloride (SODIUM CHLORIDE 0.9%) 100 ML .STK-MED ONE IV (DC) Iopamidol (ISOVUE-370) 0 .STK-MED ONE .ROUTE (DC) Physical Exam General appearance: alert, awake, oriented, no acute distress Head/Eyes: atraumatic, clear cornea Neck: no masses or swelling Respiratory: aerating well, no distress Extremities: moves all, no edema Musculoskeletal: painless range of motion Neuro/RN PRIMARY CARE: alert, oriented X 4, normal speech, EOMI Speech Speech: normal Mental Status Orientation: Yes: to time, to place, to person, to situation. LOC: alert Sensory Exam Sensory comments: Wider right palpebral fissure. Mild right NL flattening Motor Testing Motor testing 1: Normal: bulk, tone, fine movements, strength. Cerebellar Test Cerebellar test: Normal R finger/nose/finger, Normal L finger/nose/finger Nystagmus: absent Reflexes Plantar reflexes: Up: Right. Down: Left. Gait Gait comments: Deferred Results Findings/Data: Laboratory Tests 03/15 03/14 1043 2145 Chemistry Sodium (134 - 147 mmol/L) 130 L Potassium (3.4 - 5.0 mmol/L) 4.5 Chloride (100 - 108 mmol/L) 100 Carbon Dioxide (21 - 32 mmol/L) 22 Anion Gap (4.0 - 15.0 GAP calc) 8.0 BUN (7 - 18 MG/DL) 21 H Creatinine (0.6 - 1.0 MG/DL) 1.7 H Glomerular Filtr Rate (>60 estGFR) 32 L Glucose (70 - 110 MG/DL) 231 H POC Glucose (70 - 110 mg/dL) 135 H Calcium (8.5 - 10.1 MG/DL) 9.1 Troponin I High Sens (0 - 34 ng/L) 3.4 Laboratory Tests 03/14 2145 Coagulation INR (0.8 - 1.2 INR Unit) 0.88 PTT (Nolberto) (26 - 35 SECONDS) 31.1 PT Patient/Control Mix (9.3 - 12.9 SECONDS) 10.0 Laboratory Tests 03/145 Hematology WBC (3.5 - 11.0 K/mm3) 9.7 RBC (4.70 - 6.10 M/mm3) 4.07 L Hgb (10.4 - 14.9 G/DL) 12.5 Hct (31.5 - 44.1 %) 36.4 MCV (84.5 - 98.6 Fl) 89.4 MCH (27.0 - 34.2 pg) 30.7 MCHC (31.5 - 34.0 G/DL) 34.3 H RDW (11.5 - 14.5 SD) 12.8 Plt Count (150 - 450 K/mm3) 233 MPV (7.0 - 10.5 fL) 11.00 H Laboratory Tests 03/14 2227 Serology SARS-CoV-2 Ag (Rapid) (Negative) NEGATIVE Laboratory Tests 03/15 0530 Urines Urine Color (YEL/STRAW discript) YELLOW Urine Appearance (CLEAR discript) CLEAR Urine pH (5.0 - 7.0 pH UNITS) 6.0 Ur Specific [place] (1.005 - 1.030 SG) <=1.005 Urine Protein (NEG mg/dL) NEGATIVE Urine Glucose (UA) (NEG mg/dL) NEGATIVE Urine Ketones (NEG mg/dL) NEGATIVE Urine Blood (NEG mg/DL) NEGATIVE Urine Nitrite (NEG SCREEN) NEGATIVE Urine Bilirubin (NEG mg/dL) NEGATIVE Urine Urobilinogen (<2.0 mg/dL) 0.2 Ur Leukocyte Esterase (NEGATIVE Leuk/mcL) NEGATIVE Radiology Data: Recent Impressions: CAT SCAN - CT HEAD/BRAIN W/O CONT 03/14 2149 Report Impression - Status: SIGNED Entered: 03/14/20222202 IMPRESSION: No territorial infarction or space-occupying process. No intracranial hemorrhage Difficult to age characterize small vascular insult in the left parietal lobe posteriorly medially somewhat in a watershed distribution possibly subacute in age. I have discussed the findings of this code stroke case with Dr. Starks on 03/14/22 at 9:57 PM FOR INTERNAL CODING PURPOSES ONLY RESULT CODE: CVRMD Impression By: Brodie Hicks M.D. CAT SCAN - CT ANGIO NECK 03/14 2156 Report Impression - Status: SIGNED Entered: 03/14/20222225 IMPRESSION: 1. Normal CTA head. 2. Mild [...] technique. DLP: 3040 mGy-cm CTDI: 132 mGy Impression By: Melissa Watts M.D. CAT SCAN - CT ANGIO HEAD 03/14 2156 Report Impression - Status: SIGNED Entered: 03/14/20222225 IMPRESSION: 1. Normal CTA head. 2. Mild [...] technique. DLP: 3040 mGy-cm CTDI: 132 mGy Impression By: Melissa Watts M.D. RADIOLOGY - XR CHEST 1 V 03/14 2205 Report Impression - Status: SIGNED Entered: 03/14/20222231 IMPRESSION: No evidence of acute abnormality. Impression By: Melissa Watts M.D. MAGNETIC RESONANCE IMAGING - MRI BRAIN W/O CONTRAST 03/15 1100 Report Impression - Status: SIGNED Entered: 03/15/2022 1147 IMPRESSION: No acute intracranial process seen. Impression By: AlphonsoAHEmerita Lance M.D. Results: labs reviewed, vital signs reviewed, current med profile rev'd Diagnosis, Assessment Plan Free Text DxA P Notes: 71-year-old female admitted with complaints of speech difficulties, headaches and vision changes. CT of the brain -negative for acute infarct - No territorial infarction or space-occupying process. No intracranial hemorrhage Difficult to age characterize small vascular insult in the left parietal lobe posteriorly medially somewhat in a watershed distribution possibly subacute in age. MRI of the brain -negative for acute infarct. CT head and neck - Normal CTA head. Mild calcified plaque at the proximal right ICA and at the left carotid bulb, resulting in up to 10% stenosis on each side. otherwise, unremarkable CTA neck. Diagnosis: 1. Hypertensive encephalopathy 2. Chronic ischemic infarct 3. Diabetes mellitus 4. CKD 4. Hyponatremia Plan: Telemetry Reviewed imaging results Optimize blood pressure control Discussed with patient and patient's daughter Supportive care. Neurology to follow Thank you very much for the consult at 1447 at 1540 RPT #: [id number] END OF REPORT [facility] 2022-03-15 13:23:00 [facility] ([facility]) Cardiology Consultation REPORT#:[id number] REPORT STATUS: Signed DATE:03/15/22 TIME:1323 PATIENT: ANNIE CLAROS UNIT #: [id number] ROOM/BED: [address] : [birth year] AGE: 71 SEX: F ATTEND: Rosalinda Cr MD ADM AUTHOR: Daria Muhammad * ALL edits or amendments must be made on the electronic/computer document * History of Present Illness HPI Requesting Clinician: Dr. Cr Reason for consult: PFO in TTE Chief complaint: Speech difficulty PCP: PCP: Jihan Calixto DO HPI: This is a 71-year-old female with past medical history of hypertension, diabetes mellitus, hyperlipidemia, obesity presenting to ED with acute onset of speech difficulty. tPA was not given per neurology recommendation because of inconclusive CT scan finding and low NIH stroke score. MRI brain done and did not show finding of acute stroke. An echocardiogram with bubble contrast was done as part of a stroke work-up and it showed that there is a possible patent ly ovale. Cardiology is consulted for further cardiac evaluation. The patient reports normal stress test 5 years ago. She reported having some chest discomfort and shortness of breath with physical exertion like during exercise. She denies history of atrial fibrillation but does report that sometimes she wakes up at night with off-and-on palpitation. She had history of wearing Holter monitor in the past but mostly benign findings. History - Adult longitudinal Past medical history: Reports: Diabetes mellitus, Hypertension, Dyslipidemia. Alcohol use: Denies EtOH use Drug use: Denies recreational drugs Smoking status: Smoking status for patients 13 years old or older: Never Smoker Allergies: Coded Allergies: Penicillins (Intermediate, RASH 05/13/17) Review of Systems Additional notes: As stated in HPI Objective General VS/I O: Vital Signs: Date Time Temp Pulse Resp B/P B/P Pulse O2 O2 Flow FiO2 Mean Ox Delivery Rate 03/15 0916 36.6 86 18 112/74 86 97 / 0515 38.2 107 14 113/55 74 96 / 0400 37.2 95 14 122/60 80 99 08/03 0000 36.9 82 16 188/81 116 100 Room air 03/14 2218 161/74 103 08/02 2213 181/84 116 / 2205 99 03/14 2141 36.7 82 18 211/89 129 99 Room air 24 hour I O ending at 0700: 03/15 0700 03/14 1900 Intake Total Output Total Balance Patient 77.1 kg Weight Weight Bed scale Measurement Method PATIENT WEIGHT: Weight (lb): Weight (oz): Weight (kg): 77.100 Medications: Active Meds + DC'd Last 24 Hrs Atorvastatin Calcium (LIPITOR) 40 MG DAILY 1700 PO Insulin Human Lispro (HUMALOG) S/SCALE LOW AC HS SUBQ Aspirin (ASPIRIN CHEWABLE) 81 MG DAILY PO Albumin Human (OPTISON) 3 ML ONCE PRN IV Dextrose/Water (Dextrose 50% W SYRINGE) 50 ML ASDIR PRN IV (CKD) Lorazepam (ATIVAN) 0.5 MG ONCE ONE PO (DC) Acetaminophen (TYLENOL EXTRA STRENGTH) 500 MG Q8H PRN PO Acetaminophen (TYLENOL EXTRA STRENGTH) 500 MG ONCE ONE PO (DC) Aspirin (ASPIRIN) 325 MG ONCE ONE PO (DC) Lorazepam (ATIVAN) 0.5 MG ONCE ONE PO (DC) Labetalol HCl (TRANDATE) 10 MG ONCE ONE IV (DC) Sodium Chloride (SODIUM CHLORIDE 0.9%) 100 ML .STK-MED ONE IV (DC) Iopamidol (ISOVUE-370) 0 .STK-MED ONE .ROUTE (DC) Physical Exam General appearance: obese, alert, awake, oriented, no acute distress, pleasant, conversational, mental status normal, no respiratory distress Neck: non-tender, no JVD Cardiovascular: CV assessment: regular rate and rhythm Respiratory: clear to auscultation, no distress Abdomen: soft, non-tender, normal bowel sounds, no distention Genitourinary: no urinary catheter Lower extremity: LE assessment: no calf tenderness, no edema Musculoskeletal: normal inspection Neuro/RN PRIMARY CARE: alert, oriented X 3 Skin: dry, intact, normal color Psychiatry: normal affect, normal mood Results Findings/Data: Laboratory Tests 03/15 03/14 1043 2145 Chemistry Sodium (134 - 147 mmol/L) 130 L Potassium (3.4 - 5.0 mmol/L) 4.5 Chloride (100 - 108 mmol/L) 100 Carbon Dioxide (21 - 32 mmol/L) 22 Anion Gap (4.0 - 15.0 GAP calc) 8.0 BUN (7 - 18 MG/DL) 21 H Creatinine (0.6 - 1.0 MG/DL) 1.7 H Glomerular Filtr Rate (>60 estGFR) 32 L Glucose (70 - 110 MG/DL) 231 H POC Glucose (70 - 110 mg/dL) 135 H Calcium (8.5 - 10.1 MG/DL) 9.1 Troponin I High Sens (0 - 34 ng/L) 3.4 Laboratory Tests 03/14 2145 Coagulation INR (0.8 - 1.2 INR Unit) 0.88 PTT ([place]) (26 - 35 SECONDS) 31.1 PT Patient/Control Mix (9.3 - 12.9 SECONDS) 10.0 Laboratory Tests 03/14 2145 Hematology WBC (3.5 - 11.0 K/mm3) 9.7 RBC (4.70 - 6.10 M/mm3) 4.07 L Hgb (10.4 - 14.9 G/DL) 12.5 Hct (31.5 - 44.1 %) 36.4 MCV (84.5 - 98.6 Fl) 89.4 MCH (27.0 - 34.2 pg) 30.7 MCHC (31.5 - 34.0 G/DL) 34.3 H RDW (11.5 - 14.5 SD) 12.8 Plt Count (150 - 450 K/mm3) 233 MPV (7.0 - 10.5 fL) 11.00 H Laboratory Tests 03/14 2227 Serology SARS-CoV-2 Ag (Rapid) (Negative) NEGATIVE Laboratory Tests 03/15 0530 Urines Urine Color (YEL/STRAW discript) YELLOW Urine Appearance (CLEAR discript) CLEAR Urine pH (5.0 - 7.0 pH UNITS) 6.0 Ur Specific [place] (1.005 - 1.030 SG) <=1.005 Urine Protein (NEG mg/dL) NEGATIVE Urine Glucose (UA) (NEG mg/dL) NEGATIVE Urine Ketones (NEG mg/dL) NEGATIVE Urine Blood (NEG mg/DL) NEGATIVE Urine Nitrite (NEG SCREEN) NEGATIVE Urine Bilirubin (NEG mg/dL) NEGATIVE Urine Urobilinogen (<2.0 mg/dL) 0.2 Ur Leukocyte Esterase (NEGATIVE Leuk/mcL) NEGATIVE Radiology Data: Recent Impressions: CAT SCAN - CT HEAD/BRAIN W/O CONT 03/14 2149 Report Impression - Status: SIGNED Entered: 03/14/20222202 IMPRESSION: No territorial infarction or space-occupying process. No intracranial hemorrhage Difficult to age characterize small vascular insult in the left parietal lobe posteriorly medially somewhat in a watershed distribution possibly subacute in age. I have discussed the findings of this code stroke case with Dr. Starks on 03/14/22 at 9:57 PM FOR INTERNAL CODING PURPOSES ONLY RESULT CODE: CVRMD Impression By: [email or web address] - Adri Hicks M.D. CAT SCAN - CT ANGIO NECK 03/14 2156 Report Impression - Status: SIGNED Entered: 03/14/20222225 IMPRESSION: 1. Normal CTA head. 2. Mild [...] technique. DLP: 3040 mGy-cm CTDI: 132 mGy Impression By: Melissa Watts M.D. CAT SCAN - CT ANGIO HEAD 03/14 2156 Report Impression - Status: SIGNED Entered: 03/14/20222225 IMPRESSION: 1. Normal CTA head. 2. Mild [...] technique. DLP: 3040 mGy-cm CTDI: 132 mGy Impression By: Melissa Watts M.D. RADIOLOGY - XR CHEST 1 V 03/14 2205 Report Impression - Status: SIGNED Entered: 03/14/2022 2232 IMPRESSION: No evidence of acute abnormality. Impression By: Melissa Watts M.D. MAGNETIC RESONANCE IMAGING - MRI BRAIN W/O CONTRAST 03/15 1100 Report Impression - Status: SIGNED Entered: 03/15/2022 1147 IMPRESSION: No acute intracranial process seen. Impression By: [email or web address] Greg Lance M.D. EKG Interpretation: normal sinus rhythm, 1st degree AV block Diagnosis, Assessment Plan Plan discussed with: patient, daughter, primary care physician Free Text DxA P Notes Free Text DxA P Notes: This is a 71-year-old female with past medical history of hypertension, diabetes mellitus, hyperlipidemia, obesity presenting to ED with acute onset of speech difficulty. tPA was not given per neurology recommendation because of inconclusive CT scan finding and low NIH stroke score. MRI brain done and did not show finding of acute stroke. An echocardiogram with bubble contrast was done as part of a stroke work-up and it showed that there is a possible patent ly ovale. Cardiology is consulted for further cardiac evaluation. The patient reports normal stress test 5 years ago. She reported having some chest discomfort and shortness of breath with physical exertion like during exercise. She denies history of atrial fibrillation but does report that sometimes she wakes up at night with off-and-on palpitation. She had history of wearing Holter monitor in the past but mostly benign findings. 1. Speech difficulty Neurology work-up ongoing Bubble study showed possible PFO Telemetry monitoring -later for A. fib, atrial flutter Recommend COURT for better PFO evaluation and to assess for presence of intracardiac thrombus-discussed with patient and daughter and both agreeable to proceed with COURT tomorrow. 2. Exertional dyspnea - ? Anginal equivalent Echo with preserved EF, normal wall motion Check hemoglobin A1c and lipid panel Check BNP in a.m. stress test outpatient 3. Hypertension Permissive hypertension will slowly normalize blood pressure once okay with neurology Appreciate the referral. at 1530 at 1015 RPT #: [id number] END OF REPORT [facility] 2022-03-15 12:48:00 [id number] [facility] [address] [place] [address] PATIENT NAME: ANNIE CLAROS ADMIT DATE: 03/14/22 ACCOUNT NO: [id number] ROOM NO: [facility] AGE: 71 REPORT TYPE: eECHOCARDIOGRAM REPORT SEX: F ADMITTING PHYSICIAN: Rosalinda Cr MD ATTENDING PHYSICIAN: Rosalinda Cr MD *[facility]* [address] [place], [place] [address] Transthoracic Echocardiogram Patient: Annie Claros Study Date: 03/15/2022 BP: 133 / 55 Location: [facility] URN: [id number] : 1950 Age: 71 Height: 65 in / 165 cm Gender: F Weight: 169 lb / 76.8 kg BMI/BSA: 28.2 kg/m 2 / 1.9 m 2 *Ordering Physician: Rosalinda MarinInterpreting Physician: * Caitlin Wood MD *Hydrodynamics Professor: * Allison Cedeño Indications: STROKE. Study data: Transthoracic echocardiogram. Procedure: Transthoracic echocardiography was performed. Image quality was adequate. Complete 2D, complete spectral Doppler, and color Doppler. Location: Emergency department. Patient status: Inpatient. Patient room number: ER-5. Study status: Routine. Findings Left ventricle: The cavity size is normal. Wall thickness is normal. Systolic function is normal. The estimated ejection fraction is 60-64%. Wall motion is normal; there are no regional wall motion abnormalities. Doppler parameters are consistent with abnormal left ventricular relaxation (grade 1 diastolic dysfunction). Right ventricle: The cavity size is normal. Systolic function is normal. PATIENT NAME: ANNIE CLAROS Left atrium: The atrium is normal in size. Right atrium: The atrium is normal in size. Atrial septum: There is a possible patent foramen ovale. Agitated saline contrast study shows a qplil-gy-duqg shunt. Aortic valve: The valve is structurally normal. The valve is trileaflet. There is no evidence of stenosis. There is no regurgitation. Mitral valve: The valve is structurally normal. There is no evidence of stenosis. There is no regurgitation. Tricuspid valve: The valve is structurally normal. There is trivial regurgitation. Pulmonic valve: The valve is structurally normal. There is no regurgitation. Pericardium: There is no pericardial effusion. Systemic veins: Inferior vena cava: The vessel is normal in size. Measurements Left ventricle Value Ref ALISON, LAX 4.6 cm 3.8 - 5.2 ESD, LAX 3.1 cm 2.2 - 3.5 ESD/bsa, LAX 1.7 cm/m 2 1.3 - 2.1 FS, LAX 33 % 27 - 45 PW, ED 1.0 cm 0.6 - 0.9 IVS/PW, ED 0.97 --------- EF 61 % 54 - 74 IVRT 131 ms --------- LVOT Value Ref Diam, S 1.97 cm --------- Area 3.1 cm 2 --------- Peak nathan, S 0.86 m/sec --------- Mean nathan, S 0.62 m/sec --------- VTI, S 15.9 cm --------- Peak grad, S 3 mm Hg --------- Mean grad, S 2 mm Hg --------- SV 49 ml --------- SV/bsa 26 ml/m 2 --------- Ventricular septum Value Ref IVS, ED 1.0 cm 0.6 - 0.9 Right ventricle Value Ref Pressure, S 28 mm Hg --------- Left atrium Value Ref AP dim, ES MM 4.0 cm 2.7 - 3.8 LA/Ao root ratio, MM 1.41 --------- Aortic valve Value Ref Leaflet sep, MM 1.70 cm --------- Peak v, S 1.56 m/sec --------- PATIENT NAME: ANNIE CLAROS Mean v, S 1.14 m/sec --------- VTI, S 28.6 cm --------- Mean grad, S 5.6 mm Hg --------- Peak grad, S 9.7 mm Hg --------- LVOT/AV, VTI ratio 0.56 --------- GARCIA, VTI 1.70 cm 2 --------- LVOT/AV, Vpeak ratio 0.55 --------- GARCIA, Vmax 1.69 cm 2 --------- Mitral valve Value Ref Peak E 0.5 m/sec --------- Peak A 0.83 m/sec --------- Decel time 158 ms --------- PHT 53 ms --------- Peak E/A ratio 0.6 --------- MVA, PHT 4.2 cm 2 --------- Tricuspid valve Value Ref TR peak v 2.42 m/sec <=2.8 Peak RV-RA grad, S 23 mm Hg --------- Aortic root Value Ref Root diam, ED MM 2.81 cm --------- Pulmonary artery Value Ref Pressure, S 24.5 mm Hg --------- Systemic veins Value Ref Estimated CVP 5 mm Hg --------- Pulmonary veins Value Ref A rev duration 131 ms --------- Conclusions Summary: 1. Left ventricle: The cavity size is normal. Wall thickness is normal. Systolic function is normal. The estimated ejection fraction is 60-64%. Wall motion is normal; there are no regional wall motion abnormalities. Doppler parameters are consistent with abnormal left ventricular relaxation (grade 1 diastolic dysfunction). 2. Right ventricle: The RV pressure during systole by Doppler is 28 mm Hg. 3. Atrial septum: There is a possible patent foramen ovale. Agitated saline contrast study shows a slwjy-he-drmv shunt. Impressions: Bubble study is positive for intracardiac shunt possibly a PFO. COURT is recommended. Prepared and electronically signed by PATIENT NAME: ANNIE CLAROS Caitlin Wood MD 03/15/2022 12:47 at 1248 PATIENT NAME: ANNIE CLAROS [facility] 2022-03-15 07:45:00 [facility] ([facility] Hospitalist History Physical REPORT#:[id number] REPORT STATUS: Signed DATE:03/15/22 TIME:0745 PATIENT: ANNIE CLAROS UNIT #: [id number] ROOM/BED: [place] [id number] : [birth year] AGE: 71 SEX: F ATTEND: Rosalinda Cr MD ADM AUTHOR: Rosalinda Cr MD * ALL edits or amendments must be made on the electronic/computer document * History of Present Illness HPI Chief complaint: Dysarthria PCP: PCP: Jihan Calixto DO HPI: Ms. Claros is 71 year old female with history of hypertension, CKD III who presented to the hospital with complaints of dysarthria and expressive aphasia. Symptoms started around 6:15pm until presentation to the hospital. She denied any focal weakness including upper and lower extremity weakness. She did report some mild blurry vision. tPA was not given upon presentation given CT findings with suspected subacute infarct. Patient was seen and examined this morning, dysarthria and expressive aphasia is improving. Informant/historian: patient, family/other at bedside History Past Medical Surgical Hx Additional medical history: Hypertension CKD 3 Glaucoma Diabetes mellitus Additional surgical history: Hysterectomy Breast lumpectomy And surgery Family History Family history: Reports: Hypertension. Social History Alcohol use: Denies EtOH use Drug use: Denies recreational drugs Smoking status: Smoking status for patients 13 years old or older: Never Smoker Medication/Allergy-Vaccine Hx Medications: Home Medications: SUCRALFATE (CARAFATE) 1 GM PO AC HS LEVOTHYROXINE (SYNTHROID) 50 MCG PO DAILY GLIMEPIRIDE (AMARYL) 1 MG PO DAILY traMADol (ULTRAM) 50 MG PO Q6H PRN PRN PAIN LISINOPRIL (ZESTRIL) 5 MG PO DAILY ALLOPURINOL (ZYLOPRIM) 200 MG PO DAILY METOPROLOL TARTRATE (LOPRESSOR) 12.5 MG PO BID LOVASTATIN (MEVACOR) 20 MG PO BID ASPIRIN 81 MG PO DAILY Allergies: Coded Allergies: Penicillins (Intermediate, RASH 05/13/17) Review of Systems Neuro: Reports: slurred speech. All systems rev neg: except as noted Physical Exam VS/I O: Vital Signs Date Temp Pulse Resp B/P B/P Mean Pulse Ox FiO2 /-03/15 98.1-100.8 82-107 14-18 113-211/55-89 74-129 96-100 Last Documented: Result Date Time Pulse Ox 96 08/ 0515 B/P 113/55 08/03 0515 B/P Mean 74 /03 0515 Temp 100.8 08/ 0515 Pulse 107 08/03 0515 Resp 14 / 0515 O2 Delivery Room air 08/03 0000 24 hour I O ending at 0700: 03 0700 08/02 1900 Intake Total Output Total Balance Patient 77.1 kg Weight Weight Bed scale Measurement Method Patient Weight and BMI Weight (kg): 77.100 BMI: 28.3 General appearance: obese, alert, awake Head/Eyes: atraumatic, clear cornea, EOMI, normal conjunctiva/sclera, normal eyelids/periorb., normocephalic, PERRL ENT: normal dentition, normal ear left, normal ear right, normal nose, normal pharynx, normal sinus Neck: full range of motion, non-tender, normal thyroid, supple/no meningismus, no bruit/NL carotids, no JVD, no masses or swelling Cardiovascular: normal capillary refill, normal heart sounds Respiratory: clear to auscultation, no distress Abdomen: non-tender, normal bowel sounds, soft, no distention, no guarding, no hernia, no mass/organomegaly, no rebound Extremities: moves all, normal capillary refill, normal range of motion, no edema Musculoskeletal: normal inspection, painless range of motion Neuro/RN PRIMARY CARE: abnormal speech, alert, oriented X 3 Skin: dry, intact Psychiatry: normal affect, normal judgment/insight, normal mood, not homicidal, not suicidal Results Findings/Data: Laboratory Tests: 03/15 03/14 03/14 0530 2227 2145 Chemistry Sodium (134 - 147 mmol/L) 130 L Potassium (3.4 - 5.0 mmol/L) 4.5 Chloride (100 - 108 mmol/L) 100 Carbon Dioxide (21 - 32 mmol/L) 22 Anion Gap (4.0 - 15.0 GAP calc) 8.0 BUN (7 - 18 MG/DL) 21 H Creatinine (0.6 - 1.0 MG/DL) 1.7 H Glomerular Filtr Rate (>60 estGFR) 32 L Glucose (70 - 110 MG/DL) 231 H Calcium (8.5 - 10.1 MG/DL) 9.1 Troponin I High Sens (0 - 34 ng/L) 3.4 Coagulation INR (0.8 - 1.2 INR Unit) 0.88 PTT ([place]) (26 - 35 SECONDS) 31.1 PT Patient/Control Mix (9.3 - 12.9 SECONDS) 10.0 Hematology WBC (3.5 - 11.0 K/mm3) 9.7 RBC (4.70 - 6.10 M/mm3) 4.07 L Hgb (10.4 - 14.9 G/DL) 12.5 Hct (31.5 - 44.1 %) 36.4 MCV (84.5 - 98.6 Fl) 89.4 MCH (27.0 - 34.2 pg) 30.7 MCHC (31.5 - 34.0 G/DL) 34.3 H RDW (11.5 - 14.5 SD) 12.8 Plt Count (150 - 450 K/mm3) 233 MPV (7.0 - 10.5 fL) 11.00 H Serology SARS-CoV-2 Ag (Rapid) (Negative) NEGATIVE Urines Urine Color (YEL/STRAW discript) YELLOW Urine Appearance (CLEAR discript) CLEAR Urine pH (5.0 - 7.0 pH UNITS) 6.0 Ur Specific [place] (1.005 - 1.030 SG) <=1.005 Urine Protein (NEG mg/dL) NEGATIVE Urine Glucose (UA) (NEG mg/dL) NEGATIVE Urine Ketones (NEG mg/dL) NEGATIVE Urine Blood (NEG mg/DL) NEGATIVE Urine Nitrite (NEG SCREEN) NEGATIVE Urine Bilirubin (NEG mg/dL) NEGATIVE Urine Urobilinogen (<2.0 mg/dL) 0.2 Ur Leukocyte Esterase (NEGATIVE Leuk/mcL) NEGATIVE Laboratory Tests 03/14/225: [Embedded Image Not Available] Radiology data: Recent Impressions: CAT SCAN - CT HEAD/BRAIN W/O CONT 03/14 2149 Report Impression - Status: SIGNED Entered: 03/14/20222202 IMPRESSION: No territorial infarction or space-occupying process. No intracranial hemorrhage Difficult to age characterize small vascular insult in the left parietal lobe posteriorly medially somewhat in a watershed distribution possibly subacute in age. I have discussed the findings of this code stroke case with Dr. Starks on 03/14/22 at 9:57 PM FOR INTERNAL CODING PURPOSES ONLY RESULT CODE: CVRMD Impression By: [email or web address] - Adri Hicks M.D. CAT SCAN - CT ANGIO NECK 03/14 2156 Report Impression - Status: SIGNED Entered: 03/14/20222225 IMPRESSION: 1. Normal CTA head. 2. Mild [...] technique. DLP: 3040 mGy-cm CTDI: 132 mGy Impression By: [email or web address] Greg Watts M.D. CAT SCAN - CT ANGIO HEAD 03/14 2156 Report Impression - Status: SIGNED Entered: 03/14/20222225 IMPRESSION: 1. Normal CTA head. 2. Mild [...] technique. DLP: 3040 mGy-cm CTDI: 132 mGy Impression By: Melissa Watts M.D. RADIOLOGY - XR CHEST 1 V 03/14 2205 Report Impression - Status: SIGNED Entered: 03/14/20222231 IMPRESSION: No evidence of acute abnormality. Impression By: Melissa Watts M.D. Diagnosis, Assessment Plan Free Text A P: Ms. Claros is 71-year-old female who presented to the hospital with expressive aphasia and dysarthria. #Suspected stroke-CT headWith small vascular insult in the left parietal lobe posteriorly medially, possibly subacute in nature. -MRI of the brain ordered. -Neurologist consulted. tPA not given due to questionable acute/subacute stroke. -CTA head and neck completed. -Speech therapy, PT/OT. -Echocardiogram -Aspirin, statin. Permissive hypertension. #Diabetes mellitus-check hemoglobin A1c. -Check lipid panel. #Hypertension-blood pressure will be controlled appropriately. For now, allow permissive hypertension. #Fever-unknown etiology. No overt infection. Will monitor closely. #CKD 3-creatinine close to baseline. Avoid nephrotoxin. DVT prophylaxis-SCD GI prophylaxis-Pepcid Patient is full code. Discussed with patient and daughter at bedside. Plan discussed with: patient, daughter Resuscitation discussion: Discussed with: patient and family Code status: full code at 1355 RPT #: [id number] END OF REPORT [facility] 2022-03-14 22:11:00 [facility] ([facility]) EMERGENCY PROVIDER REPORT REPORT#:[id number] REPORT STATUS: Signed DATE:03/14/22 TIME:2210 PATIENT: ANNIE CLAROS UNIT #: [id number] ROOM/BED: [place] [address] : [birth year] AGE: 71 SEX: F PCP PHYS: No Primary or Family Physician SERVICE AUTHOR: Elina Starks DO * ALL edits or amendments must be made on the electronic/computer document * HPI-Stroke/CVA General Initial Greet Date/Time 03/14/227 Presentation )( Progression since Onset Gradually improving Free Text HPI Notes Free Text HPI Notes The patient is a 71-year-old female with a past medical history significant for diabetes mellitus, hypertension and chronic kidney disease who is presenting with headache, dysarthria and expressive aphasia. Her daughter states her symptoms began between 6 and 630 this evening. The patient has not experienced similar symptoms in the past. It was associated with an episode of blurry vision. She denies experiencing paresthesias or focal weakness in her upper or lower extremities bilaterally. No fever, runny nose, cough, chest pain, shortness of breath, abdominal pain, nausea, vomiting or diarrhea Risk-Stroke/CVA Risk Stratification )( Initial NIH Stroke Scale )( Initial NIH Stroke Scale Response Value NIHSS Applicable? Yes 0 Level of Consciousness Alert and responsive (0) 0 Ask Month Age 1 question right (1) 1 Blink Eyes/Squeeze Hands Performs both tasks (0) 0 Horizontal EOM NL side/side eye mvmt (0) 0 Visual Diaz No visual loss (0) 0 Facial Palsy Normal symmetry (0) 0 Right Arm Motor Drift (10s) No drift 10 sec (0) 0 Left Arm Motor Drift (10s) No drift 10 sec (0) 0 Right Leg Motor Drift (5s) No drift 5 sec (0) 0 Left Leg Motor Drift (5s) No drift 5 sec (0) 0 Limb Ataxia FNF/Heel-Boss No ataxia (0) 0 Sensation (Arms/Legs/Face) No sensory loss (0) 0 Language Aphasia Mild loss fluency (1) 1 Dysarthria Slur but intelligible (1) 1 Extinction/Inattention No extinct/inattent (0) 0 Total 3 Review of Systems ROS Statements All systems rev neg except as marked. PMH-Stroke/CVA Stated Complaint HEADACHE X2 HRS Allergies Coded Allergies: Penicillins (Intermediate, RASH 05/13/17) Home Medications Reported Medications SUCRALFATE (CARAFATE) 1 GM PO AC HS LEVOTHYROXINE (SYNTHROID) 50 MCG PO DAILY GLIMEPIRIDE (AMARYL) 1 MG PO DAILY traMADol (ULTRAM) 50 MG PO Q6H PRN PRN PAIN LISINOPRIL (ZESTRIL) 5 MG PO DAILY ALLOPURINOL (ZYLOPRIM) 200 MG PO DAILY METOPROLOL TARTRATE (LOPRESSOR) 12.5 MG PO BID LOVASTATIN (MEVACOR) 20 MG PO BID ASPIRIN 81 MG PO DAILY Past Medical History: Reports: Diabetes mellitus, Hypertension, Dyslipidemia. Alcohol Use Denies EtOH use Drug Use Denies recreational drugs Smoking status for patients 13 years old or older: Never Smoker Physical Exam Vital Signs Vital Signs First Documented: Result Date Time Pulse Ox 99 03/14 2141 B/P 211/89 03/14 2141 B/P Mean 129 03/14 2141 O2 Delivery Room air 03/14 2141 Temp 36.7 03/14 2141 Pulse 82 03/14 2141 Resp 18 03/14 2141 Last Documented: Result Date Time B/P 161/74 03/14 2218 B/P Mean 103 03/14 2218 Pulse Ox 99 03/14 2205 O2 Delivery Room air 03/14 2141 Temp 36.7 03/14 2141 Pulse 82 03/14 2141 Resp 03/14 Review of Vital Signs Reviewed Free Text PE Notes Free Text PE Notes Focused PE General/Const General/Const Awake, Alert, No acute distress MS Head Head Atraumatic, Normocephalic Eyes Eyes Atraumatic, No scleral icterus Ears/Nose/Throat Ears/Nose/Throat Atraumatic, Airway patent, Mucous membranes moist, Pharynx NL MS Neck Neck Atraumatic, Supple Resp/Chest Respiratory/Chest Atraumatic, Breath sounds NL, Breath sounds = bilat, No respiratory distress Cardiovascular Cardiovascular Heart rate NL, Regular rhythm, Heart sounds NL, No gallop Abdomen/GI Abdomen/GI Atraumatic, Soft, Non-tender, McBurney's non-tender MS Upper Extrem Upper Extremity/MS Atraumatic, No deformity MS Lower Extrem Lower Ext/Pelvis/MS Atraumatic, Neurologic intact Skin Skin Atraumatic, No swelling Neurologic Neurologic Oriented X3. Mild dysarthria is present. Mild expressive aphasia is present sensation is intact to touch in her upper and lower extremities bilaterally. No focal motor deficits are present in her upper and lower extremities bilaterally. Unable to assess gait. Interpretation Diagnostics Lab Results Interpretation Results Laboratory Tests 03/14/222144: [Embedded Image Not Available] Laboratory Tests: 03/14 Chemistry Sodium (134 - 147 mmol/L) 130 L Potassium (3.4 - 5.0 mmol/L) 4.5 Chloride (100 - 108 mmol/L) 100 Carbon Dioxide (21 - 32 mmol/L) 22 Anion Gap (4.0 - 15.0 GAP calc) 8.0 BUN (7 - 18 MG/DL) 21 H Creatinine (0.6 - 1.0 MG/DL) 1.7 H Glomerular Filtr Rate (>60 estGFR) 32 L Glucose (70 - 110 MG/DL) 231 H Calcium (8.5 - 10.1 MG/DL) 9.1 Troponin I High Sens (0 - 34 ng/L) 3.4 Coagulation INR (0.8 - 1.2 INR Unit) 0.88 PTT ([place]) (26 - 35 SECONDS) 31.1 PT Patient/Control Mix (9.3 - 12.9 SECONDS) 10.0 Hematology WBC (3.5 - 11.0 K/mm3) 9.7 RBC (4.70 - 6.10 M/mm3) 4.07 L Hgb (10.4 - 14.9 G/DL) 12.5 Hct (31.5 - 44.1 %) 36.4 MCV (84.5 - 98.6 Fl) 89.4 MCH (27.0 - 34.2 pg) 30.7 MCHC (31.5 - 34.0 G/DL) 34.3 H RDW (11.5 - 14.5 SD) 12.8 Plt Count (150 - 450 K/mm3) 233 MPV (7.0 - 10.5 fL) 11.00 H Serology SARS-CoV-2 Ag (Rapid) (Negative) NEGATIVE Microbiology: Date/Time Procedure - Status Source Growth 03/14 2314 MRSA Screen - ORD NASAL Recent Impressions: CAT SCAN - CT HEAD/BRAIN W/O CONT 03/14 2149 Report Impression - Status: SIGNED Entered: 03/14/20222202 IMPRESSION: No territorial infarction or space-occupying process. No intracranial hemorrhage Difficult to age characterize small vascular insult in the left parietal lobe posteriorly medially somewhat in a watershed distribution possibly subacute in age. I have discussed the findings of this code stroke case with Dr. Starks on 03/14/22 at 9:57 PM FOR INTERNAL CODING PURPOSES ONLY RESULT CODE: CVRMD Impression By: [email or web address] Greg Hicks M.D. CAT SCAN - CT ANGIO NECK 03/14 2156 Report Impression - Status: SIGNED Entered: 03/14/20222225 IMPRESSION: 1. Normal CTA head. 2. Mild [...] technique. DLP: 3040 mGy-cm CTDI: 132 mGy Impression By: Melissa Watts M.D. CAT SCAN - CT ANGIO HEAD 03/14 2156 Report Impression - Status: SIGNED Entered: 03/14/20222225 IMPRESSION: 1. Normal CTA head. 2. Mild [...] technique. DLP: 3040 mGy-cm CTDI: 132 mGy Impression By: Melissa Watts M.D. RADIOLOGY - XR CHEST 1 V 03/14 2205 Report Impression - Status: SIGNED Entered: 03/14/20222231 IMPRESSION: No evidence of acute abnormality. Impression By: Melissa Watts M.D. ECG #1 Interpretation Date 03/14/22 Time 2211 Interpreted by ED physician [email or web address] ECG Interpretation Normal rate, Normal sinus rhythm, No acute ischemic changes, No STEMI, Normal QRS Rate 89 MDM-Stroke/CVA Re-Evaluation/Progress #1 Text/Dict Note The patient's repeat NIH stroke scale is 2. Case was discussed with the neurologist. She reviewed the patient's imaging results. She recommends no tPA given her low NIH stroke scale and due to the results of her CT head without contrast. She will be admitted to the hospital. Time of Re-Eval 2229 Re-Eval Status Improved Stroke Thrombolytic Therapy Administered IV Thrombolytic? No, exclusion criteria ED Course Medication(s) Ordered Medication(s) Ordered: Cardiovascular Drugs Sig/Ivan Start time Last Medication Dose Route Stop Time Status Admin Labetalol HCl 10 MG ONCE ONE 03/14 2315 DC 03/14 IV 03/14 2316 215 Diagnostic Agents Sig/Ivan Start time Last Medication Dose Route Stop Time Status Admin Iopamidol 0 .STK-MED ONE 03/14 2149 DC 03/14 .ROUTE 2202 Electrolytic, Caloric, And [place] Sig/Ivan Start time Last Medication Dose Route Stop Time Status Admin Sodium Chloride 100 ML .STK-MED ONE 03/14 2204 DC 03/14 IV 03/14 Consultation Consultation 1 Referral/Consult Name Amelia Deshpande MD Videotape Recording Engineer Called Neurology Requested Call Time 2146 Requested Call Date 03/14/22 Call Returned Call returned Call Returned Time 2146 Call Returned Date 03/14/22 Free Text Consult Notes Recommends waiting for her CT results prior to administering TPA Consultation 2 Referral/Consult Name ; Amelia Deshpande MD Videotape Recording Engineer Called Neurology Requested Call Time 2222 Requested Call Date 03/14/22 Call Returned Call returned Call Returned Time 2223 Call Returned Date 03/14/22 Videotape Recording Engineer Will see patient Free Text Consult Notes Recommends no tpa. Patient Discharge Departure Vital Signs/Condition Vital Signs First Documented: Result Date Time Pulse Ox 99 03/14 2141 B/P 211/89 03/14 2141 B/P Mean 129 03/14 2141 O2 Delivery Room air 03/14 2141 Temp 36.7 03/14 2141 Pulse 82 03/14 2141 Resp 03/14 Last Documented: Result Date Time B/P 161/74 03/14 2218 B/P Mean 103 03/14 2218 Pulse Ox 99 03/14 2205 O2 Delivery Room air 03/14 2141 Temp 36.7 03/14 2141 Pulse 82 03/14 2141 Resp 03/14 All vital signs available at the time of this entry have been reviewed. Clinical Impression Clinical Impression Primary Impression: Stroke Disposition Decision Admit Admit Physician Name Rosalinda Cr MD Admit Physician Hospitalist Request Time 2311 Request Date 03/14/22 )( Admission Accepts Yes )( Accepted Time 2311 )( Accepted Date 03/14/22 Call Information will see patient at 0429 RPT #: [id number] END OF REPORT [facility]CAPM
[2024-09-24 16:30] LABS: Absolute Basophils 0.1 K/uL (0-0.5); Absolute Eosinophils 0.1 K/uL (0-0.5); Absolute Lymphocytes (CBC) 1.8 K/uL (0.7-4.9); Absolute Monocytes 0.5 K/uL (0.1-1.3); Absolute Neutrophil 5.3 K/uL (1.8-8.0); Basophils % 1.4 % (0-1.3); Eosinophils % 1.6 % (0-4.4); Hematocrit 40.5 % (36.0-45.0); Lymphocytes % 22.6 % (15.3-44.8); MCH 34.3 pg (27.0-35.0); MCHC 34.6 g/dL (32.0-36.0); MCV 99.1 fL (80-100); Monocytes % 6.8 % (3.3-12.3); Neutrophils % 67.6 % (41.7-73.7); Platelets 256 thou/uL (152-406); RBC Red Blood Cell Count 4.08 M/uL (3.86-4.86); Red Cell Distribution Width 13.6 % (12.1-15.2)
--- NOTE | 2024-09-24 16:40 | RAD REPORT ---
EXAM: CT brain without contrast HISTORY: STROKE ALERT COMPARISON: 12/28/2022 TECHNIQUE: Multiple contiguous axial images were obtained and a CT of the brain without contrast. Sag ittal and coronal reformats were performed. One or more of the following dose reduction techniques were used: Automated exposure control, adjust ment of the mA and/or kV according to patient size, and/or iterative reconstruction. FINDINGS: No evidence of hydrocephalus, intracranial hemorrhage, or extra-axial fluid collection. The brain is normal in morphology. No evidence of midline shift or areas of brain edema. Left verteb ral atherosclerosis. The calvarium is intact. The visualized paranasal sinuses and mastoid air cells are essentially clear . IMPRESSION: No evidence of acute intracranial abnormality. The findings were communicated with Hernandez Smith MD at 09/24/2024 4:37 PM by text message.
[2024-09-24] MEDS ORDERED: FOLIC ACID 5 MG/ML VIAL ONE (16:46)
[2024-09-24] MEDS ORDERED: ONDANSETRON 4 MG/2 ML VIAL ONE (16:46)
[2024-09-24] MEDS ORDERED: ACETAMINOPHEN 325 MG TABLET ONE (16:46)
[2024-09-24] MEDS ORDERED: NA CHLORIDE 0.9% 1,000 ML ONE ×2 (16:47→18:31)
[2024-09-24 16:48] LABS: Albumin/Globulin Ratio 0.9 (1.1-1.8); Anion Gap 8.4 mEq/L (5.0-15.0); Bilirubin Direct 0.2 mg/dL (0-0.2); Bilirubin Indirect, Calculated 0.8 mg/dL (0.2-0.8); Globulin 4.3 g/dL (2.3-3.5); Magnesium 1.7 mg/dL (1.6-2.4); Potassium 4.4 mEq/L (3.5-5.1); Protein, Total 8.3 g/dL (6.4-8.2); Troponin High Sensitivity 3.1 pg/mL (<58.9)
[2024-09-24 16:53] LABS: PT Prothrombin Time 12.2 SECONDS (9.4-12.5); Protime INR 1.16
--- NOTE | 2024-09-24 16:58 | RAD REPORT ---
EXAMINATION: CTA HEAD CLINICAL INDICATION: APHASIA TECHNIQUE: Axial CT images were obtained through the head after intravenous contrast utilizing angiog raphic protocol with 3D post-processing (maximum intensity projection images, volume rendered images and/or shaded surface rendered images). One or more of the following dose reduction technique s were used: Automated exposure control, adjustment of the mA and/or kV according to patient size, and/or iterative reconstruction. Unless otherwise specified, incidental findings do not require dedic ated imaging follow-up. COMPARISON: No prior exam. FINDINGS: ICA: The petrous, cavernous, and supraclinoid segments of the bilateral internal carotid arteries are normal. The ophthalmic artery origins are visualized and normal. The posterior communicating arteries are patent. LILLY: Anterior cerebral arteries are normal bilaterally. The anterior communicating artery is patent. MCA: Middle cerebral arteries are normal bilaterally. TENSION WORKER: Posterior cerebral arteries are normal bilaterally. Vertebrobasilar: The left vertebral artery is dominant with focal hard plaque left V4 segment. Diminu tive right vertebral artery which may terminate in PICA. Basilar artery appears patent. 3D images confirm these findings. IMPRESSION: No significant flow abnormality is identified.
[2024-09-24] MEDS ORDERED: PROMETHAZINE INJ 25 MG/ML AMP ONE (16:59)
[2024-09-24] MEDS ORDERED: FENTANYL CITR 100 MCG/2 ML ONE (17:00)
--- NOTE | 2024-09-24 17:09 | RAD REPORT ---
EXAMINATION: CTA NECK CLINICAL INDICATION: PAIN TECHNIQUE: Axial CT images were obtained from the aortic arch to the skull base after intravenous con trast utilizing angiographic protocol with 3D post-processing (maximum intensity projection images, volume rendered images and/or shaded surface rendered images). One or more of the following dose redu ction techniques were used: Automated exposure control, adjustment of the mA and/or kV according to patient size, and/or iterative reconstruction. Unless otherwise specified, incidental findings do not require dedicated imaging follow-up. COMPARISON: No prior exam. FINDINGS: AORTA: The imaged aortic arch is normal. Bovine configuration. CCA: The common carotid arteries are patent and normal in caliber. ICA/ECA: Mild focal hard plaque is seen left carotid bulb resulting in stenosis less than 50%. Mild p laque noted post bulbar right ICA resulting in stenosis of less than 50%. VERTEBRAL: The cervical vertebral arteries are patent. Left vertebral artery appears dominant. SOFT TISSUE: No significant neck soft tissue abnormalities. The visualized lung apices are clear. 3D images confirm these findings. IMPRESSION: No significant carotid stenosis identified. NASCET criteria used. Mild 0-49% stenosis Moderate 50-69% stenosis Severe 70-99% stenosis
--- NOTE | 2024-09-24 17:14 | RAD REPORT ---
EXAMINATION: ONE VIEW CHEST XR CLINICAL INDICATION: COUGH TECHNIQUE: Frontal chest projection is submitted. Examination is limited by patient positioning and t echnique. COMPARISON: 08/02/2024 FINDINGS: Lungs are mildly fibrotic but grossly clear. The heart is upper limit of normal in size. No displaced fractures identified. IMPRESSION: No acute intrathoracic abnormalities.
--- NOTE | 2024-09-24 18:14 | RAD REPORT ---
EXAMINATION: MRI BRAIN WITHOUT CONTRAST CLINICAL INDICATION: TIA TECHNIQUE: Multiplanar multisequence MR images of the brain were obtained without intravenous contras t. Unless otherwise specified, incidental findings do not require dedicated imaging follow-up. COMPARISON: Recent [facility] imaging FINDINGS: INTRACRANIAL: There is significant artifact from dental hardware limiting the study. No evidence of C VA seen within the limitations. No space-occupying lesion or midline shift. No hydrocephalus. No hemorrhage. Small focus of gliosis left occipital lobe likely remote infarct. VASCULATURE: Normal signal voids in the larger intracranial arteries and dural venous sinuses. SINUSES: Not well visualized due to artifact. BONE: The marrow signal pattern is within normal limits. IMPRESSION: There is significant anterior blooming artifact present limiting the study, within this limitation, n o gross CVA or other gross acute intracranial findings seen.
--- NOTE | 2024-09-24 18:20 | ER ---
Nurse's Notes [facility] Name: Annie Zuñiga Age: 74 yrs Sex: Female : 1950 Arrival Date: 09/24/2024 Time: 16:06 Bed 16 Private MD: Diagnosis: Altered mental status, unspecified;Aphasia;Headache;Unspecified kidney failure Presentation: 09/24 16:10 Chief complaint: Patient states: Fatigue and sleepy all day. Awoke at 3 PM with bad LION ll1 and trouble finding words. Last known well 09/23 10 PM. Coronavirus screen: Client denies travel out of the [place] in the last 14 days. At this time, the client does not indicate any symptoms associated with coronavirus-19. Ebola Screen: Patient denies travel to an Ebola-affected area in the 21 days before illness onset. Initial Sepsis Screen: Does the patient meet any 2 criteria? No. Patient's initial sepsis screen is negative. Does the patient have a suspected source of infection? No. Patient's initial sepsis screen is negative. Risk Assessment: Do you want to hurt yourself or someone else? Patient reports no desire to harm self or others. Onset of symptoms was September 24, 2024. 16:10 Method Of Arrival: Ambulatory ll1 16:10 Acuity: BONI 2 ll1 16:18 An acute neurological deficit is present. ll1 16:18 Pre-hospital glucose is not applicable to this patient. ld1 Triage Assessment: 16:10 General: Appears uncomfortable, Behavior is calm, cooperative, appropriate for age. ll1 Pain: Complains of pain in head Pain currently is 8 out of 10 on a pain scale. Quality of pain is described as aching, throbbing. Neuro: Reports headache expressive aphasia. 16:18 The onset of the patients symptoms was September 23, 2024 at 22:00. Headache History: ld1 Denies prior headaches. General: Appears in no apparent distress. uncomfortable, Behavior is cooperative, anxious, fussy. Pain: Complains of pain in face, back, chest and neck Pain does not radiate. Pain currently is 9 out of 10 on a pain scale. Quality of pain is described as aching, heavy, throbbing, Pain began 1 day ago. Is intermittent. EENT: No signs and/or symptoms were reported regarding the EENT system. Neuro: Level of Consciousness is awake, alert, obeys commands, Oriented to person, place, time, situation, Appropriate for age Reports dizziness, headache aphasia. Cardiovascular: Capillary refill < 3 seconds Patient's skin is warm and dry. Rhythm is sinus rhythm. Respiratory: Airway is patent Respiratory effort is even, unlabored. GI: Abdomen is round non-distended, Reports nausea. : No signs and/or symptoms were reported regarding the genitourinary system. Derm: No signs and/or symptoms reported regarding the dermatologic system. Musculoskeletal: No signs and/or symptoms reported regarding the musculoskeletal system. 16:18 Pain: Also complains of no other associated symptoms. ld1 Stroke Activation: Symptom onset > 6 hours Physician: ED Attending; Name: ; Notified At: ; Arrived At: Physician: Mid-Level Provider; Name: ; Notified At: ; Arrived At: Physician: [not used]; Name: ; Notified At: ; Arrived At: Physician: [not used]; Name: ; Notified At: ; Arrived At: Physician: [not used]; Name: ; Notified At: ; Arrived At: Historical: - Allergies: 16:09 PENICILLINS; ll1 - PMHx: 16:09 CVA; Hypertension; kidney failure; ULCER; High Cholesterol; Gout; Thyroid problem; ll1 Diabetes - NIDDM; - PSHx: 16:09 hysterectomy; loop recorder; ll1 - Immunization history:: Adult Immunizations up to date. - Infectious Disease History:: Denies. - Social history:: Smoking status: Patient denies any tobacco usage or history of. Screenin:19 [facility] ED Fall Risk Assessment (Adult) History of falling in the last 3 months, ld1 including since admission No falls in past 3 months (0 pts) Confusion or Disorientation Yes (5 pts) Intoxicated or Sedated No (0 pts) Impaired Gait No (0 pts) Mobility Assist Device Used No (0 pt) Altered Elimination No (0 pt) Score/Fall Risk Level 0 - 2 = Low Risk Oriented to surroundings, Hourly rounding (assess needs \\T\\ fall precautionary measures) done. Abuse screen: Denies threats or abuse. Denies injuries from another. Nutritional screening: No deficits noted. Tuberculosis screening: No symptoms or risk factors identified. Assessment: 16:16 Reassessment: Code stroke called at 1616. ld1 16:19 Alma Swallow Protocol Brief Cognitive Screen What is your name? Normal, Where are you ld1 right now? Normal, What year is it? Normal. Oral Mechanism Examination Facial Symmetry: Normal, Motion: Normal, Lip Closure: Normal, Oral Mechanism Result: Normal. 3 oz Water Swallow Challenge: Pt able to drink all water without stopping, coughing, choking or throat clearing: Yes Result: PASS Notified: Hernandez Smith MD. 16:19 TNKase (Tenecteplase) Screening: Indications: Treatment will start within 4.5 hours ld1 onset of symptoms: No. General: Appears in no apparent distress. uncomfortable, Behavior is cooperative, anxious. Pain: Complains of pain in chest Pain does not radiate. Pain currently is 9 out of 10 on a pain scale. Quality of pain is described as heavy, pressure, throbbing, Pain began suddenly, Is continuous. Neuro: Level of Consciousness is awake, alert, obeys commands, Oriented to person, place, time, situation, Appropriate for age Reports headache. Cardiovascular: Capillary refill < 3 seconds Patient's skin is warm and dry. Rhythm is sinus rhythm. Respiratory: Airway is patent Respiratory effort is even, unlabored. GI: Abdomen is round non-distended. : No signs and/or symptoms were reported regarding the genitourinary system. EENT: No signs and/or symptoms were reported regarding the EENT system. Derm: No signs and/or symptoms reported regarding the dermatologic system. Musculoskeletal: No signs and/or symptoms reported regarding the musculoskeletal system. 16:19 VAN Scoring: Arm Drift: Patients demonstrates NO arm weakness. Patient is VAN Negative. ld1 Alma Swallow Protocol Exclusion Criteria: NPO for medical/surgical reason by provider order No. 16:20 Reassessment: Pt to CT. ld1 16:45 Reassessment: Pt C/O headache and nausea. Pt vomiting at this time. Notified ERP. See ld1 MAR for orders. 16:50 Reassessment: Pt refusing to go to MRI without pain medication. C/O pain to head, neck ld1 and back. Notified ERP. See MAR for orders. 17:08 Reassessment: Patient appears in no apparent distress at this time. Resting in bed ld1 waiting on MRI at this time. States nausea is better and pain is tolerable for MRI. Pt states "I don't know whats wrong with me, I feel like I am slurring my words." Patient states feeling better. 17:18 Reassessment: Pt to MRI at this time. ld1 18:45 Reassessment: Pt disoriented from pain medication, unable to stay alert. Pt not taking ld1 PO meds at this time. Notified ERP. 19:05 General: Appears in no apparent distress. Behavior is calm, drowsy. rg5 19:05 Pain: Denies pain. Neuro: Level of Consciousness is confused, Oriented to person, time, rg5 Reports headache. Cardiovascular: Capillary refill is > 3 seconds Patient's skin is warm and dry. Respiratory: Airway is patent Respiratory effort is even, unlabored, Breath sounds are clear bilaterally. GI: Abdomen is round non-distended, Abd is soft and non tender. : No signs and/or symptoms were reported regarding the genitourinary system. EENT: No signs and/or symptoms were reported regarding the EENT system. Derm: No signs and/or symptoms reported regarding the dermatologic system. Musculoskeletal: Circulation, motion, and sensation intact. Range of motion: intact in all extremities. 20:20 Reassessment: No changes from previously documented assessment. Patient and/or family rg5 updated on plan of care and expected duration. Pain level reassessed. Vital Signs: 16:10 BP 175 / 109; Pulse 78; Resp 16; Temp 97.6; Pulse Ox 99% on R/A; Height 5 ft. 2 in. ; ll1 Pain 8/10; 16:16 Weight 70.31 kg; ld1 16:18 BP 179 / 91; Pulse 75; Resp 19; Pulse Ox 98% on R/A; ld1 16:55 BP 173 / 94; Pulse 72; Resp 18; Pulse Ox 100% on R/A; ld1 17:08 BP 152 / 99; Pulse 96; Resp 18; Pulse Ox 98% on R/A; ld1 18:45 BP 134 / 96; Pulse 95; Resp 18; Pulse Ox 100% on R/A; ld1 19:15 BP 112 / 83; Pulse 84; Resp 17; Temp 97.9(O); Pain 0/10; rg5 20:00 BP 115 / 90; Pulse 89; Resp 18; Pulse Ox 97% on R/A; Pain 0/10; rg5 16:10 Pain Scale: Adult ll1 19:15 Pain Scale: Adult rg5 20:00 Pain Scale: Adult rg5 Joceline Coma Score: 18:14 Eye Response: spontaneous(4). Motor Response: obeys commands(6). Verbal Response: katie oriented(5). Total: 15. NIH Stroke Scale Scores: 16:19 NIHSS Score: 1 ld1 18:11 NIHSS Score: 2 [facility] ED Course: 16:06 Patient arrived in ED. mr 16:11 Triage completed. ll1 16:11 Arm band placed on Patient placed in an exam room, on a stretcher. ll1 16:12 Elina Gray, IRINEO is Primary Nurse. ld1 16:13 Hernandez Smith MD is Attending Physician. [facility] 16:18 Inserted saline lock: 20 gauge in left antecubital area, using aseptic technique. Blood ld1 collected. Flushed with 10 mL NS. 16:18 No provider procedures requiring assistance completed. ld1 16:19 Patient has correct armband on for positive identification. Placed in gown. Bed in low ld1 position. Call light in reach. Side rails up X2. quality assurance monitor on. Pulse ox on. NIBP on. Door closed. Noise minimized. Warm blanket given. 16:19 EKG completed in triage. Results shown to MD. ld1 16:34 CT Stroke Brain w/o Contrast In Process Unspecified. EDMS 16:42 CT Head Angio In Process Unspecified. EDMS 16:42 CT Neck Angio In Process Unspecified. EDMS 17:01 XRAY Chest (1 view) In Process Unspecified. EDMS 17:23 Provided Education on: Stroke symptoms . ld1 17:42 MRI - Brain Wo Cont In Process Unspecified. EDMS 18:19 Prince Castillo MD is Hospitalizing Provider. [facility] 19:06 Urinalysis w/ reflexes Sent. ld1 19:15 Patient admitted, IV remains in place. intact, No redness/swelling at site. rg5 20:04 Warm blanket given. rk3 Administered Medications: 16:18 CANCELLED (Duplicate Order): ns 0.9% 1000 ml IV at 1000 ml once; to be given as a bolus [facility] over 60 minutes 16:50 Drug: Ondansetron IVP 4 mg IVP once; over 2 minutes Route: IVP; Site: left antecubital; ld1 16:58 Follow up: Response: No adverse reaction ld1 16:55 Drug: foLIC Acid IVPB 1 mg IVPB once Route: IVPB; Site: left antecubital; ld1 17:04 Follow up: Response: No adverse reaction; IV Status: Completed infusion ld1 16:55 Drug: NS 0.9% IV 500 ml 500 ml IV at 1 bolus once; to be given as a bolus over 30 ld1 minutes Volume: 500 ml; Route: IV; Rate: 1 bolus; Site: left antecubital; 17:04 Follow up: Response: No adverse reaction; IV Status: Completed infusion; IV Intake: ld1 500ml 17:03 Drug: fentaNYL (PF) IVP 25 mcg IVP once Route: IVP; Site: left antecubital; ld1 17:19 Follow up: Response: No adverse reaction ld1 17:03 Drug: Promethazine IVP 12.5 mg IVP once Route: IVP; Site: left antecubital; ld1 17:19 Follow up: Response: No adverse reaction ld1 19:06 Drug: NS 0.9% IV 500 ml 500 ml IV at 1 bolus once; to be given as a bolus over 30 ld1 minutes Volume: 500 ml; Route: IV; Rate: 1 bolus; Site: left antecubital; 19:18 Follow up: IV Status: Completed infusion; IV Intake: 500ml rg5 19:18 Drug: NS 0.9% IV 1000 ml IV at 125 ml/hr once Route: IV; Rate: 125 ml/hr; Site: left rg5 antecubital; 19:59 Drug: Rocephin IV 1 grams IV at per protocol once; Given slow IV push per pharmacy rg5 instructions Route: IV; Rate: per protocol; Site: left antecubital; 21:15 Follow up: IV Status: Completed infusion; IV Intake: 50ml rg5 20:13 Drug: Aspirin PO Chewable Tablet 324 mg PO once; 81 mg tablets x 4 Route: PO; rg5 21:16 Follow up: Response: No adverse reaction rg5 20:13 Drug: Clopidogrel PO 75 mg PO once Route: PO; rg5 21:15 Follow up: Response: No adverse reaction rg5 20:13 Drug: Mucomyst - Acetylcysteine PO 600 mg PO once Route: PO; rg5 21:15 Follow up: Response: No adverse reaction rg5 Medication: 16:19 VIS not applicable for this client. ld1 Point of Care Testing: Blood Glucose: 16:17 Blood Glucose: 110 mg/dL; ld1 Ranges: Intake: 17:04 IV: 500ml; Total: 500ml. ld1 19:18 IV: 500ml; Total: 1000ml. rg5 21:15 IV: 50ml; Total: 1050ml. rg5 Outcome: 18:20 Decision to Hospitalize by Provider. katie 22:40 Condition: stable rg5 22:40 Admitted to Med/surg accompanied by tech, via stretcher, rg5 22:40 Instructed on the need for admit, 22:40 Patient left the ED. rg5 NIH Stroke Scale - NIH Stroke Score Date: 09/24/2024 Time: 16:19 Total Score = 1 10. Dysarthria (speech clarity - read or repeat words) - 1(Mild to Moderate) 11. Extinction and Inattention (visual/tactile/auditory/spatial/personal) - 0(No abnormality) 1a. Level of Consciousness (LOC) - 0(Alert) 1b. Level of Consciousness (LOC) (Month \\T\\ Age) - 0(Both) 1c. LOC Commands (Open \\T\\ Closes Eyes/Motel Keeper) - 0(Both) 2. Best Gaze (Lateral Gaze Paresis) - 0(Normal) 3. Visual Field Loss - 0(No visual loss) 4. Facial Palsy - 0(Normal) 5a. Left Arm: Motor (10-second hold) - 0(No drift) 5b. Right Arm: Motor (10-second hold) - 0(No drift) 6a. Left Leg: Motor (5-second hold - always test supine) - 0(No drift) 6b. Right Leg: Motor (5-second hold - always test supine) - 0(No drift) 7. Limb Ataxia (finger/nose \\T\\ heel/partida - test with eyes open) - 0(Absent) 8. Sensory Loss (pinprick arms/legs/face) - 0(Normal) 9. Best Language: Aphasia (description/naming/reading) - 0(No aphasia) Initials: ld1 NIH Stroke Scale - NIH Stroke Score Date: 09/24/2024 Time: 18:11 Total Score = 2 10. Dysarthria (speech clarity - read or repeat words) - 1(Mild to Moderate) 11. Extinction and Inattention (visual/tactile/auditory/spatial/personal) - 0(No abnormality) 1a. Level of Consciousness (LOC) - 0(Alert) 1b. Level of Consciousness (LOC) (Month \\T\\ Age) - 0(Both) 1c. LOC Commands (Open \\T\\ Closes Eyes/Motel Keeper) - 0(Both) 2. Best Gaze (Lateral Gaze Paresis) - 0(Normal) 3. Visual Field Loss - 0(No visual loss) 4. Facial Palsy - 0(Normal) 5a. Left Arm: Motor (10-second hold) - 0(No drift) 5b. Right Arm: Motor (10-second hold) - 0(No drift) 6a. Left Leg: Motor (5-second hold - always test supine) - 0(No drift) 6b. Right Leg: Motor (5-second hold - always test supine) - 0(No drift) 7. Limb Ataxia (finger/nose \\T\\ heel/partida - test with eyes open) - 0(Absent) 8. Sensory Loss (pinprick arms/legs/face) - 0(Normal) 9. Best Language: Aphasia (description/naming/reading) - 1(Mild to moderate aphasia) Initials: katie Signatures: Dispatcher [employer] EDMS Hernandez Smith MD MD cha Rivera Libia, [facility] Reg mr Ailyn Joseph, RN RN ll1 Elina Gray RN RN ld1 Minh Jackson RN RN rg5 Mary Kay Agudelo rk3 Corrections: (The following items were deleted from the chart) 16:18 16:10 Chief complaint: Patient states: Fatigue and sleepy all day. Awoke at 3 ll1 PM with bad LION and trouble finding words. ll1 16:27 16:26 Reassessment: Code stroke called at 1616 ld1 ld1 17:15 17:08 BP 152 / 99; Pulse 113bpm; Resp 18bpm; Pulse Ox 98% RA; ld1 ld1
--- NOTE | 2024-09-24 18:20 | EDPHYS ---
Physician Documentation [facility] Name: Annie Zuñiga Age: 74 yrs Sex: Female : 1950 Arrival Date: 09/24/2024 Time: 16:06 Bed 16 Private MD: ED Physician Hernandez Smith HPI: 09/24 18:08 This 74 yrs old Female presents to ER via Ambulatory with complaints of katie Headache, Blurred Vision. 18:08 The patient complains of pain to the top of head, forehead, left frontal area, left katie side of the back of head, left occipital area, left base of the skull, right frontal area, right side of the back of head, right occipital area and right base of the skull. The patient describes the headache as aching. Onset: The symptoms/episode began/occurred just prior to arrival. Associated signs and symptoms: Pertinent positives: weakness, aphasia. Severity of symptoms: At its worst the pain was mild, in the emergency department the pain is unchanged. Headache History: The patient has had previous headaches and this one is similar to previous episodes. The symptoms are alleviated by nothing. the symptoms are aggravated by nothing. It is unknown whether or not the patient has had similar symptoms in the past. Historical: - Allergies: 16:09 PENICILLINS; ll1 - PMHx: 16:09 CVA; Hypertension; kidney failure; ULCER; High Cholesterol; Gout; Thyroid problem; ll1 Diabetes - NIDDM; - PSHx: 16:09 hysterectomy; loop recorder; ll1 - Immunization history:: Adult Immunizations up to date. - Infectious Disease History:: Denies. - Social history:: Smoking status: Patient denies any tobacco usage or history of. ROS: 18:11 Constitutional: Negative for fever, chills, and weight loss, Eyes: Negative for injury, katie pain, redness, and discharge, ENT: Negative for injury, pain, and discharge, Neck: Negative for injury, pain, and swelling, Cardiovascular: Negative for chest pain, palpitations, and edema, Respiratory: Negative for shortness of breath, cough, wheezing, and pleuritic chest pain, Abdomen/GI: Negative for abdominal pain, nausea, vomiting, diarrhea, and constipation, Back: Negative for injury and pain, : Negative for injury, bleeding, discharge, and swelling, MS/Extremity: Negative for injury and deformity, Skin: Negative for injury, rash, and discoloration, Psych: Negative for depression, anxiety, suicide ideation, homicidal ideation, and hallucinations, Allergy/Immunology: Negative for hives, rash, and allergies, Endocrine: Negative for neck swelling, polydipsia, polyuria, polyphagia, and marked weight changes, Hematologic/Lymphatic: Negative for swollen nodes, abnormal bleeding, and unusual bruising, 18:11 Neuro: Positive for aphasia, Exam: 18:11 Constitutional: This is a well developed, well nourished patient who is awake, alert, katie and in no acute distress. Head/Face: Normocephalic, atraumatic. Eyes: Pupils equal round and reactive to light, extra-ocular motions intact. Lids and lashes normal. Conjunctiva and sclera are non-icteric and not injected. Cornea within normal limits. Periorbital areas with no swelling, redness, or edema. ENT: Nares patent. No nasal discharge, no septal abnormalities noted. Tympanic membranes are normal and external auditory canals are clear. Oropharynx with no redness, swelling, or masses, exudates, or evidence of obstruction, uvula midline. Mucous membranes moist. Neck: Trachea midline, no thyromegaly or masses palpated, and no cervical lymphadenopathy. Supple, full range of motion without nuchal rigidity, or vertebral point tenderness. No Meningismus. Chest/axilla: Normal chest wall appearance and motion. Nontender with no deformity. No lesions are appreciated. Cardiovascular: Regular rate and rhythm with a normal S1 and S2. No gallops, murmurs, or rubs. Normal PMI, no JVD. No pulse deficits. Respiratory: Lungs have equal breath sounds bilaterally, clear to auscultation and percussion. No rales, rhonchi or wheezes noted. No increased work of breathing, no retractions or nasal flaring. Abdomen/GI: Soft, non-tender, with normal bowel sounds. No distension or tympany. No guarding or rebound. No evidence of tenderness throughout. Back: No spinal tenderness. No costovertebral tenderness. Full range of motion. Female : Normal external genitalia. Skin: Warm, dry with normal turgor. Normal color with no rashes, no lesions, and no evidence of cellulitis. MS/ Extremity: Pulses equal, no cyanosis. Neurovascular intact. Full, normal range of motion., bilateral aka Psych: Awake, alert, with orientation to person, place and time. Behavior, mood, and affect are within normal limits. 18:11 Neuro: Orientation: is normal, Mentation: slow to respond, Memory: unable to test, Cranial nerves: grossly normal, is grossly normal based on the patient's age, no acute changes, Cerebellar function: no acute changes, Motor: moves all fours, strength is normal, Sensation: is normal, no obvious gross deficits, appropriate no acute changes, Gait: not tested. seizure activity, is not displayed by the patient, 18:21 ECG was reviewed by the Attending Physician. katie Vital Signs: 16:10 BP 175 / 109; Pulse 78; Resp 16; Temp 97.6; Pulse Ox 99% on R/A; Height 5 ft. 2 in. ; ll1 Pain 8/10; 16:16 Weight 70.31 kg; ld1 16:18 BP 179 / 91; Pulse 75; Resp 19; Pulse Ox 98% on R/A; ld1 16:55 BP 173 / 94; Pulse 72; Resp 18; Pulse Ox 100% on R/A; ld1 17:08 BP 152 / 99; Pulse 96; Resp 18; Pulse Ox 98% on R/A; ld1 18:45 BP 134 / 96; Pulse 95; Resp 18; Pulse Ox 100% on R/A; ld1 19:15 BP 112 / 83; Pulse 84; Resp 17; Temp 97.9(O); Pain 0/10; rg5 20:00 BP 115 / 90; Pulse 89; Resp 18; Pulse Ox 97% on R/A; Pain 0/10; rg5 16:10 Pain Scale: Adult ll1 19:15 Pain Scale: Adult rg5 20:00 Pain Scale: Adult rg5 NIH Stroke Scale Scores: 16:19 NIHSS Score: 1 ld1 18:11 NIHSS Score: 2 katie [place] Coma Score: 18:14 Eye Response: spontaneous(4). Motor Response: obeys commands(6). Verbal Response: katie oriented(5). Total: 15. MDM: 16:13 Medical Screening Exam initiated katie 18:14 Differential diagnosis: cerebral abscess, cervical epidural bleed, cervical perispinal katie abcess, cluster headache, cerebral vascular accident, hypoglycemia, hyponatremia, meningitis, migraine, neoplasm, subarachnoid bleed, subdural hematoma, temporal arteritis, tension headache, traumatic injuries, trigeminal neuralgia, uremia, vasomotor headache. Data reviewed: vital signs, nurses notes, lab test result(s), EKG, radiologic studies, CT scan, MRI, plain films. Consideration of Admission/Observation Patient was admitted/placed on observation. Escalation of care including admission/observation considered. I considered the following discharge prescriptions or medication management in the emergency department Medications were administered in the Emergency Department. See MAR. Independent interpretation of the following test(s) in the Emergency Department EKG: See my EKG interpretation above. Test considered but Not performed: MRI: brain. Historians other than the Patient: EMS: ems well informed. Care significantly affected by the following chronic conditions: Diabetes, Hypertension, Obesity, Chronic Kidney Disease, crf, cva x 2, pud. Counseling: I had a detailed discussion with the patient and/or guardian regarding the historical points, exam findings, and any diagnostic results supporting the discharge/admit diagnosis, lab results, radiology results, the need for further work-up and treatment in the hospital. ED course: not a tpa/tnk candidate last normal 10pm last night. 09/24 16:18 Order name: Basic Metabolic Panel; Complete Time: 18:03 [facility] 09/24 16:18 Order name: CBC with Diff; Complete Time: 18:03 [facility] 09/24 16:18 Order name: LFT's; Complete Time: 18:03 [facility] 09/24 16:18 Order name: Magnesium; Complete Time: 18:03 [facility] 09/24 16:18 Order name: NT PRO-BNP; Complete Time: 18:03 [facility] 09/24 16:18 Order name: PT-INR; Complete Time: 18:03 [facility] 09/24 16:18 Order name: Troponin HS; Complete Time: 18:03 [facility] 09/24 16:18 Order name: Urinalysis w/ reflexes; Complete Time: 20:34 [facility] 09/24 16:30 Order name: Glucose, Ancillary Testing; Complete Time: 18:03 [facility] 09/24 19:23 Order name: Magnesium [facility] 09/24 19:23 Order name: Phosphorus [facility] 09/24 19:23 Order name: Urinalysis w/ reflexes [facility] 09/24 19:23 Order name: Basic Metabolic Panel [facility] 09/24 19:23 Order name: Basic Metabolic Panel [facility] 09/24 19:23 Order name: CBC with Automated Diff [facility] 09/24 19:23 Order name: CBC with Automated Diff [facility] 09/24 16:18 Order name: XRAY Chest (1 view); Complete Time: 18:03 [facility] 09/24 16:18 Order name: CT Stroke Brain w/o Contrast; Complete Time: 18:03 [facility] 09/24 16:18 Order name: CT Head Angio; Complete Time: 18:03 [facility] 09/24 16:18 Order name: CT Neck Angio; Complete Time: 18:03 [facility] 09/24 16:18 Order name: MRI - Brain Wo Cont; Complete Time: 18:20 [facility] 09/24 16:18 Order name: Cardiac monitoring; Complete Time: 16:20 [facility] 09/24 16:18 Order name: EKG - Nurse/Tech; Complete Time: 16:20 [facility] 09/24 16:18 Order name: IV Saline Lock; Complete Time: 16:20 [facility] 09/24 16:18 Order name: Labs collected and sent; Complete Time: 16:20 [facility] 09/24 16:18 Order name: O2 Per Protocol; Complete Time: 16:20 [facility] 09/24 16:18 Order name: O2 Sat Monitoring; Complete Time: 16:20 [facility] 09/24 18:06 Order name: Misc. Order: get ua; Complete Time: 19:06 [facility] EC:21 Rate is 71 beats/min. Rhythm is regular. QRS Mcclure is Normal. TN interval is normal. QRS katie interval is normal. QT interval is normal. No Q waves. T waves are Normal. No ST changes noted. Clinical impression: Normal ECG and No evidence of ischemia. Interpreted by me. Reviewed by me. Administered Medications: 16:18 CANCELLED (Duplicate Order): ns 0.9% 1000 ml IV at 1000 ml once; to be given as a bolus katie over 60 minutes 16:50 Drug: Ondansetron IVP 4 mg IVP once; over 2 minutes Route: IVP; Site: left antecubital; ld1 16:58 Follow up: Response: No adverse reaction ld1 16:55 Drug: foLIC Acid IVPB 1 mg IVPB once Route: IVPB; Site: left antecubital; ld1 17:04 Follow up: Response: No adverse reaction; IV Status: Completed infusion ld1 16:55 Drug: NS 0.9% IV 500 ml 500 ml IV at 1 bolus once; to be given as a bolus over 30 ld1 minutes Volume: 500 ml; Route: IV; Rate: 1 bolus; Site: left antecubital; 17:04 Follow up: Response: No adverse reaction; IV Status: Completed infusion; IV Intake: ld1 500ml 17:03 Drug: fentaNYL (PF) IVP 25 mcg IVP once Route: IVP; Site: left antecubital; ld1 17:19 Follow up: Response: No adverse reaction ld1 17:03 Drug: Promethazine IVP 12.5 mg IVP once Route: IVP; Site: left antecubital; ld1 17:19 Follow up: Response: No adverse reaction ld1 19:06 Drug: NS 0.9% IV 500 ml 500 ml IV at 1 bolus once; to be given as a bolus over 30 ld1 minutes Volume: 500 ml; Route: IV; Rate: 1 bolus; Site: left antecubital; 19:18 Follow up: IV Status: Completed infusion; IV Intake: 500ml rg5 19:18 Drug: NS 0.9% IV 1000 ml IV at 125 ml/hr once Route: IV; Rate: 125 ml/hr; Site: left rg5 antecubital; 19:59 Drug: Rocephin IV 1 grams IV at per protocol once; Given slow IV push per pharmacy rg5 instructions Route: IV; Rate: per protocol; Site: left antecubital; 21:15 Follow up: IV Status: Completed infusion; IV Intake: 50ml rg5 20:13 Drug: Aspirin PO Chewable Tablet 324 mg PO once; 81 mg tablets x 4 Route: PO; rg5 21:16 Follow up: Response: No adverse reaction rg5 20:13 Drug: Clopidogrel PO 75 mg PO once Route: PO; rg5 21:15 Follow up: Response: No adverse reaction rg5 20:13 Drug: Mucomyst - Acetylcysteine PO 600 mg PO once Route: PO; rg5 21:15 Follow up: Response: No adverse reaction rg5 Point of Care Testing: Blood Glucose: 16:17 Blood Glucose: 110 mg/dL; ld1 Ranges: Critical Glucose Levels:Adult <50 mg/dl or >400 mg/dl <40 mg/dl or >180 mg/dl Disposition Summary: 09/24/24 18:20 Hospitalization Ordered Notes: Hospitalization Status: Inpatient Admission katie Provider: Prince katie Castillo Location: Telemetry/MedSurg (Inpatient) katie Condition: Fair katie Problem: new katie Symptoms: have improved katie Bed/Room Type: Standard katie Room Assignment: 212(09/24/24 21:41) kmf Diagnosis - Altered mental status, unspecified katie - Aphasia katie - Headache katie - Unspecified kidney failure katie Forms: - Medication Reconciliation Form katie - SBAR form katie - Leadership Thank You Letter katie NIH Stroke Scale - NIH Stroke Score Date: 09/24/2024 Time: 16:19 Total Score = 1 10. Dysarthria (speech clarity - read or repeat words) - 1(Mild to Moderate) 11. Extinction and Inattention (visual/tactile/auditory/spatial/personal) - 0(No abnormality) 1a. Level of Consciousness (LOC) - 0(Alert) 1b. Level of Consciousness (LOC) (Month \T\ Age) - 0(Both) 1c. LOC Commands (Open \T\ Closes Eyes/Agency Operator) - 0(Both) 2. Best Gaze (Lateral Gaze Paresis) - 0(Normal) 3. Visual Field Loss - 0(No visual loss) 4. Facial Palsy - 0(Normal) 5a. Left Arm: Motor (10-second hold) - 0(No drift) 5b. Right Arm: Motor (10-second hold) - 0(No drift) 6a. Left Leg: Motor (5-second hold - always test supine) - 0(No drift) 6b. Right Leg: Motor (5-second hold - always test supine) - 0(No drift) 7. Limb Ataxia (finger/nose \T\ heel/partida - test with eyes open) - 0(Absent) 8. Sensory Loss (pinprick arms/legs/face) - 0(Normal) 9. Best Language: Aphasia (description/naming/reading) - 0(No aphasia) Initials: ld1 NIH Stroke Scale - NIH Stroke Score Date: 09/24/2024 Time: 18:11 Total Score = 2 10. Dysarthria (speech clarity - read or repeat words) - 1(Mild to Moderate) 11. Extinction and Inattention (visual/tactile/auditory/spatial/personal) - 0(No abnormality) 1a. Level of Consciousness (LOC) - 0(Alert) 1b. Level of Consciousness (LOC) (Month \T\ Age) - 0(Both) 1c. LOC Commands (Open \T\ Closes Eyes/Agency Operator) - 0(Both) 2. Best Gaze (Lateral Gaze Paresis) - 0(Normal) 3. Visual Field Loss - 0(No visual loss) 4. Facial Palsy - 0(Normal) 5a. Left Arm: Motor (10-second hold) - 0(No drift) 5b. Right Arm: Motor (10-second hold) - 0(No drift) 6a. Left Leg: Motor (5-second hold - always test supine) - 0(No drift) 6b. Right Leg: Motor (5-second hold - always test supine) - 0(No drift) 7. Limb Ataxia (finger/nose \T\ heel/partida - test with eyes open) - 0(Absent) 8. Sensory Loss (pinprick arms/legs/face) - 0(Normal) 9. Best Language: Aphasia (description/naming/reading) - 1(Mild to moderate aphasia) Initials: [facility] Signatures: Dispatcher [employer] EDHernandez Ward MD MD cha Lewis, Lynsay, RN RN ll1 Elina Gray RN RN ld1 Adrianna Cho [facility] Minh Jackson, RN RN rg5 Corrections: (The following items were deleted from the chart) 16:18 16:18 NS 0.9% IV 1000 ml IV at 1000 ml once; to be given as a bolus over 60 katie minutes ordered. [facility] 16:18 16:18 Chest Single View+RAD.RAD.BRZ ordered. EDOR EDMS 16:18 16:18 CT-STROKE BRAIN W/O CONTRAST+CT.RAD.BRZ ordered. EDMS EDMS 16:18 16:18 Head Angio+CT.RAD.BRZ ordered. EDMS EDMS 16:18 16:18 Neck Angio+CT.RAD.BRZ ordered. EDMS EDMS 16:18 16:18 Brain Wo Cont+MRI.RAD.BRZ ordered. EDMS EDMS 21:41 18:20 katie [facility]
[2024-09-24] MEDS ORDERED: CEFTRIAXONE 1000 MG/VIAL ONE (18:30)
[2024-09-24] MEDS ORDERED: ACETYLCYST 6,000 MG/30 ML VIAL ONE (18:31)
[2024-09-24] MEDS ORDERED: ASPIRIN 81 MG CHEWABLE TABLET ONE (18:31)
[2024-09-24] MEDS ORDERED: NA CHLORIDE 0.9% 500 ML ONE (18:31)
[2024-09-24] MEDS ORDERED: CLOPIDOGREL 75 MG TABLET ONE (18:31)
[2024-09-24 19:09] LABS: Specific Gravity > 1.030 (1.005-1.030); Sqamous Epithelial <5 /HPF (None Seen); Urine Bacteria None Seen /HPF (<20); Urine Bilirubin NEGATIVE (Negative); Urine Blood Negative (Negative); Urine Clarity Clear (Clear); Urine Color Colorless (Yellow); Urine Culture Reflex Order NOT NEEDED; Urine Glucose NEGATIVE (Negative); Urine Ketones 1+ (Negative); Urine Microscopic Reflex YN ORDER UMIC; Urine Nitrite NEGATIVE (Negative); Urine Protein NEGATIVE (Negative); Urine RBC <5 /HPF (None Seen); Urine Urobilinogen Normal (Normal); Urine WBC <5 /HPF (<5); Urine pH 5.5 (5.0-7.0)
[2024-09-24] MEDS ORDERED: ONDANSETRON 4 MG/2 ML VIAL IV PRN (19:19)
--- NOTE | 2024-09-24 19:27 | P.HP ---
Certification for Inpatient Patient admitted to: Observation With expected LOS: <2 Midnights Practitioner: I am a practitioner with admitting privileges, knowledge of patient current condition, hospital course, and medical plan of care. Services: Services provided to patient in accordance with Admission requirements found in Title 42 Section 412.3 of the Code of Federal Regulations Patient History Date of Service: 09/24/24 Reason for admission: aphasia History of Present Illness: Patient is a 74-year-old female with a past medical history of diabetes and obesity and CKD stage III. She is currently on Ozempic. She presented to the ER with aphasia. She was reportedly seen normal last night around 10 PM. Workup in the ER has been negative including CT head, CTA head and neck and brain MRI. ER has consulted neurology who has recommended dual antiplatelet therapy and folic acid. During my evaluation, patient had just been medicated with fentanyl. He was extremely drowsy. Cool open the eyes with difficulty. Daughter was at bedside. Questions answered. Allergies Penicillins Allergy (Intermediate, Verified 08/28/12 23:49) Hives/Rash Home Medications: Glimepiride 1 mg PO DAILY 10/13/18 Lovastatin 20 mg PO DAILY 10/13/18 Metoprolol Tartrate 25 mg PO DAILY 10/13/18 allopurinoL [Allopurinol] 100 mg PO DAILY 10/13/18 lisinopriL [Prinivil*] 5 mg PO DAILY 10/13/18 Aspirin [Aspirin EC 81 MG] 81 mg PO DAILY 06/16/20 Famotidine [Acid Controller] 20 mg PO DAILY 06/16/20 Insulin Glargine,Hum.rec.anlog [Lantus Solostar] 40 units SQ DAILY 06/16/20 Levothyroxine Sodium [Euthyrox] 50 mcg PO 0630 06/16/20 Sitagliptin Phosphate [Januvia*] 100 mg PO DAILY 06/16/20 Apixaban [Eliquis *] 2.5 mg PO BID #60 tab 07/26/22 Clopidogrel Bisulfate [Plavix*] 75 mg PO DAILY #30 tab 07/26/22 - Past Medical/Surgical History Diabetic: Yes -: Insulin Dependent Type 2 DM -: HTN -: CKD -: Gout -: hyperlipidemia -: hypothyroidism -: CVAs -: hysterectomy -: tonsillectomy -: Cardiac cath with 2 sents Psychosocial/ Personal History: Patient lives at home with her daughter. - Family History Father -: Heart disease, Stroke Notes: History of heart disease Sister -: Heart disease Mother -: Heart disease, Stroke - Social History Alcohol use: No CD- Drugs: No Caffeine use: No Physical Examination - Physical Exam General: Other (Somnolent) HEENT: Atraumatic, Normocephalic Respiratory: Clear to auscultation bilaterally, Normal air movement Cardiovascular: No edema, Normal pulses, Regular rate/rhythm, Normal S1 S2 - Studies Laboratory Data (last 24 hrs) 09/24/24 09/24/24 09/24/24 16:40 16:20 16:20 WBC 7.80 Hgb 14.0 Hct 40.5 Plt Count 256 PT 12.2 INR 1.16 Sodium 135 L Potassium 4.4 BUN 20 H Creatinine 1.70 H Glucose 106 Magnesium 1.7 Total Bilirubin 1.0 AST 24 ALT 36 Alkaline Phosphatase 110 Assessment and Plan - Problems (Diagnosis) (1) CKD stage 3 due to type 2 diabetes mellitus Current Visit: Yes Status: Acute (2) History of CVA (cerebrovascular accident) Current Visit: No Status: Acute (3) TIA (transient ischemic attack) Current Visit: No Status: Acute (4) CAD (coronary artery disease) Current Visit: No Status: Chronic Qualifiers: (5) Diabetes Current Visit: No Status: Chronic Qualifiers: (6) Dyslipidemia Current Visit: No Status: Chronic (7) Hypertension Current Visit: No Status: Chronic Qualifiers: - Plan Patient is a 74-year-old female with a past medical history of hypertension, hyperlipidemia, coronary disease and CVA. She presented to the ER for evaluation of acute aphasia. Patient was last seen normal yesterday around 10 PM. Workup in the ER included CTA head and neck, CT head and brain MRI. They were all without acute pathology. TIA History of CVA Coronary disease CKD stage III Hypertension Type 2 diabetes mellitus Hyperlipidemia Plan: Will admit under observation with telemetry Neurochecks Continue patient on dual antiplatelet therapy and folic acid. Will also had high intensity statin No need to repeat echocardiogram. Recent echo from 2 months ago was normal PT/OT/DIRECTOR OF PHYSICAL THERAPY when patient is more awake Resume rest of home medications upon reconciliation - Advance Directives Does patient have a Living Will: No Does patient have a Durable POA for Healthcare: No
[2024-09-24] MEDS ORDERED: NA CHLORIDE 0.9% 50 ML ONE (20:03)
[2024-09-24 22:01] VITALS: BMI 28.3
[2024-09-24 22:57] VITALS: O2SAT 97
[2024-09-24] MEDS: ATORVASTATIN 40 MG TAB PO SCH (23:26)
[2024-09-24] MEDS: FOLIC ACID 1 MG TABLET PO SCH (23:26)
[2024-09-25 05:32] LABS: Absolute Basophils 0.1 K/uL (0-0.5); Absolute Lymphocytes (CBC) 1.8 K/uL (0.7-4.9); Absolute Neutrophil 9.8 K/uL (1.8-8.0); Basophils % 0.6 % (0-1.3); Hematocrit 35.7 % (36.0-45.0); Hemoglobin 12.4 g/dL (12.0-15.0); Lymphocytes % 13.9 % (15.3-44.8); MCH 34.3 pg (27.0-35.0); MCHC 34.8 g/dL (32.0-36.0); MCV 98.7 fL (80-100); MPV 9.5 fL (7.6-11.3); Monocytes % 7.6 % (3.3-12.3); Neutrophils % 77.9 % (41.7-73.7); Platelets 240 thou/uL (152-406); RBC Red Blood Cell Count 3.61 M/uL (3.86-4.86); Red Cell Distribution Width 13.7 % (12.1-15.2)
[2024-09-25] MEDS: NA CHLORIDE 0.9% 1,000 ML IV SCH (06:00)
[2024-09-25 06:05] LABS: Anion Gap 12.2 mEq/L (5.0-15.0); Magnesium 1.5 mg/dL (1.6-2.4); Phosphorus 2.1 mg/dL (2.5-4.9); Potassium 4.2 mEq/L (3.5-5.1)
--- NOTE | 2024-09-25 07:19 | P.PN ---
Date of Service: 09/25/24 Subjective: ROS: 10 point ROS as noted above, otherwise negative Physical Exam: GEN: Somnolent CV: Regular rate and rhythm, no edema Pulm: Nonlabored respirations on room air, clear bilaterally ABD: soft, nontender, nondistended Neuro: expressive aphasia Problem List: Expressive Aphasia Headache Hx of prior CVA/TIA CKD3 IDDM2 Hypertension Hyperlipidemia Hypothyroidism Hx of CAD s/p PCI x2 Expressive Aphasia Headache Hx of prior CVA/TIA on admission, presents with severe headache, difficulty findings words. Last known normal: 09/23 ~10 pm given aspirin, plavix, folic acid, IVF, Rocephin in ED CT brain negative, CXR negative, CTA neck negative. MRI brain limited secondary to dental hardware. No gross CVA or other acute findings allowing for limitations. Noted small focus of gliosis left occipital lobe likely remote infarct. Dr. Figueroa, Neuro consult PT/OT/ST evals continue DAPT with aspirin/plavix continue folic acid, statin CKD3 contineue to monitor renal function ~baseline compared to past hospitalizations Sees Dr. Rowe IV fluids IDDM2 accu-cheks, SSI confirm home insulin regimen Hypertension Hyperlipidemia Hypothyroidism Hx of CAD s/p PCI x2 confirm home meds, restart as appropriate VTE: Lovenox Code: Full Dispo: Home Time Spent Managing Pts Care (In Minutes): 55
[2024-09-25 08:07] LABS: Thyroid Stimulating Hormone 0.701 uIU/mL (0.358-3.740)
[2024-09-25] MEDS: CLOPIDOGREL 75 MG TABLET PO SCH (09:50)
[2024-09-25] MEDS: ENOXAPARIN 30 MG/0.3 ML SQ SCH (09:50)
[2024-09-25] MEDS: ASPIRIN EC 81 MG TAB PO SCH (09:50)
[2024-09-25 12:02] VITALS: BP 109/67; TEMP 98.2
--- NOTE | 2024-09-26 08:18 | ECHO ---
HEIGHT: 5 ft 2 in WEIGHT: 154 lb 9.6 oz DATE OF STUDY: 09/25/[address]: Prince Viola Castillo MD 2-DIMENSIONAL: YES M.MODE: YES DOPPLER: YES COLOR FLOW: YES TDS: PORTABLE: YES DEFINITY: BUBBLE STUDY: DIAGNOSIS: TRANSIENT ISCHEMIC ATTACK CARDIAC HISTORY: CATHERIZATION: YES SURGERY: NO PROSTHETIC VALVE: NO PACEMAKER: NO MEASUREMENTS (cm) DIASTOLIC (NORMALS) SYSTOLIC (NORMALS) IVSd 1.3 (0.6-1.2) LA Diam 2.8 (1.9-4.0) LVEF 25-30% LVIDd 5.6 (3.5-5.7) LVIDs 4.7 (2.0-3.5) %FS 15% LVPWd 1.3 (0.6-1.2) Ao Diam 2.6 (2.0-3.7) 2 DIMENSIONAL ASSESSMENT: RIGHT ATRIUM: NORMAL LEFT ATRIUM: NORMAL RIGHT VENTRICLE: NORMAL LEFT VENTRICLE: DEPRESSED EJECTION FRACTION TRICUSPID VALVE: MILD TRICUSPID REGURGITATION MITRAL VALVE: MILD MITRAL REGURGITATION PULMONIC VALVE: NORMAL AORTIC VALVE: NORMAL PERICARDIAL EFFUSION: NONE AORTIC ROOT: NORMAL LEFT VENTRICULAR WALL MOTION: TIANNA SEPTAL/ ANTERIOR WALL DYSKINESIS DOPPLER/COLOR FLOW: SEE BELOW COMMENTS: 1. SEVERELY DEPRESSED LEFT VENTRICULAR EJECTION FRACTION 25-30% 2. APICAL BALLOONING WITH TIANNA SEPTAL AND ANTERIOR DYSKINESIS, AND APICAL LEFT VENTRICULAR ANEURYSM 3. MILD TRICUSPID REGURGITATION 4. MILD MITRAL REGURGITATION TECHNOLOGIST: NADER SINGH
== END 2024-09-25 13:31 | disposition home or self-care (01) ==
LOC: ER 16:06 → ERHOLD 19:19 → 2ND 22:25
PROVIDERS: ADMIT Internal Medicine; ATTEND Hospitalist
DX: R47.01 Aphasia (principal); R41.82 Altered mental status, unspecified; E66.9 Obesity, unspecified; N18.30 Chronic kidney disease, stage 3 unspecified; I25.10 Atherosclerotic heart disease of native coronary artery without angina pectoris; E78.5 Hyperlipidemia, unspecified; E11.22 Type 2 diabetes mellitus with diabetic chronic kidney disease; I12.9 Hypertensive chronic kidney disease with stage 1 through stage 4 chronic kidney disease, or unspecified chronic kidney disease; R51.9 Headache, unspecified; E03.9 Hypothyroidism, unspecified; N17.9 Acute kidney failure, unspecified; Z86.73 Personal history of transient ischemic attack (TIA), and cerebral infarction without residual deficits; Z88.0 Allergy status to penicillin
CPT/HCPCS: 96365; 93005; 93306; 85025 ×2; 81001; 80048 ×2; 36415 ×2; 83735 ×2; 84100; 85610; 80061; 82565; 82947 ×3; 80076; 84443; 83036; 84484; 84439; 83880; 70496; 70498; 70450; 71045; 70551; 97161; 97165; 97535; 96375; 99285; Q9967; J2550; J7608; J1650; J3010; J2405; J7040; J7030 ×3; J0696; G0378

== ENCOUNTER 2024-09-27 15:58 | Emergency (ER) | payer OTHER ==
--- OUTSIDE RECORDS SUMMARY | 2024-09-27 16:04 | XMS REPORT | Continuity of Care Document ---
Author Name Unknown Address [address] [facility] [address] [place] [address] [facility] thconnect Address [address] [facility] [address] [place] [address] Care Team Providers Care Geomagnetist Name Role Phone JIHAN CALIXTO Primary Care Physician Unavailab Jihan Anguiano Attending Clinician Unavailable NICOLAS CAMPA Attending Clinician Unavailab Toño Ch Attending Clinician Unavailable Hollie Cheung Attending Clinician Unavailable Zia Recio Attending Clinician Unavailable Caitlin Wood Attending Clinician Unavailab NELY Hernandez Attending Clinician Unavailable Nely Scott NP Attending Clinician [phone] Doctor Unassigned, [place] Attending Clinician U Rosalinda Richard Attending Clinician Unavailable Nicolas Campa MD Attending Clinician [phone] Only, Ad[facility] Test Attending Clinician Unavailable Pob, [facility] Main Attending Clinician UnavailSylvia Mcfadden CRNA Attending Clinician SYLVIA IGLESIAS Attending Clinician UnavailMirian El MD Attending Clinician [phone] MIRIAN MONTALVO Attending Clinician Unavailpriscilla schaeffer RADIOLOGY Attending Clinician Unavailable Radiology Attending Clinician Unavailable NICOLAS CAMPA Admitting Clinician Unavailab Jihan Anguiano Admitting Clinician Unavailable Rosalinda Cr Admitting Clinician Unavailable NELY SCOTT Admitting Clinician Unavailable Physician, No Primary or Family Admitting Clinic giovanny Unavailable Nicolas Campa MD Admitting Clinician JIHAN CALIXTO Admitting Clinician Unavailable Payers Payer Name Policy Type Policy Number Effective Date Expirati on Date Source [facility] [employer] [place] [id number] 2021 00:00:00 [facility] MEDICARE ADVANTAGE [employer] [id number] 2020 00:00:00 [facility] Problems Condition Name Condition Details Condition Category Status Onset Date Resolution Date Last Treatment Date Treating Clinician Comments Source Primary hypothyroi dism Primary hypothyroi dism Disease Active 01-22 00:00: 00 [facility] Arm laceration Arm laceration Disease Active 12-06 00:00: 00 [facility] Obesity (BMI 30-39.9) Obesity (BMI 30-39.9) Disease Active 12-06 00:00: 00 [facility] Hypokalemi a Hypokalemi a Disease Active 05-03 00:00: 00 [facility] Sleep disorder breathing Sleep disorder breathing Disease Active 04-06 00:00: 00 [facility] Atypical chest pain Atypical chest pain Disease Active 04-06 00:00: 00 [facility] Gouty arthritis Gouty arthritis Disease Active 03-30 00:00: 00 [facility] Hyperurice jatin Hyperurice jatin Disease Active 03-30 00:00: 00 [facility] Encounter for long-term (current) use of other high-risk medication s Encounter for long-term (current) use of other high-risk medication s Disease Active 03-30 00:00: 00 [facility] Osteoarthr itis, generalize d Osteoarthr itis, generalize d Disease Active 03-30 00:00: 00 [facility] CKD (chronic kidney disease) stage 3, GFR 30-59 ml/min CKD (chronic kidney disease) stage 3, GFR 30-59 ml/min Disease Active 03-30 00:00: 00 [facility] Hypernatre jatin Hypernatre jatin Disease Active 03-02 00:00: 00 [facility] Chronic kidney disease (CKD) stage G3b/A3, moderately decreased glomerular filtration rate (GFR) between 30-44 mL/min/1.7 3 square meter and albuminuri a creatinine ratio greater than 300 mg/g Chronic kidney disease (CKD) stage G3b/A3, moderately decreased glomerular filtration rate (GFR) between 30-44 mL/min/1.7 3 square meter and albuminuri a creatinine ratio greater than 300 mg/g Disease Active 12-26 00:00: 00 [facility] [id number] Chronic gout without tophus, unspecifie d cause, unspecifie d site Problem [facility] [id number] Hypertensi on, unspecifie d type Problem [facility] Impaired memory Impaired memory Problem [facility] Osteoporos is Other osteoporos is Problem [facility] Sinus problem Sinus problem Problem [facility] [id number] Chronic kidney disease, unspecifie d CKD stage Problem [facility] [id number] 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 Problem [facility] [id number] Skin lesions Problem [facility] [id number] Constipati on, unspecifie d constipati on type Problem [facility] [id number] Gastroesop hageal reflux disease, esophagiti s presence not specified Problem [facility] [id number] Abnormal kidney function Problem [facility] [id number] Chest pain, unspecifie d type Problem [facility] [id number] Status post fall Problem [facility] [id number] HDL deficiency Problem [facility] [id number] Mastalgia Problem [facility] [id number] Coccygeal pain Problem [facility] [id number] Left leg pain Problem [facility] Abnormal mammogram Abnormal mammogram Problem [facility] [id number] Abnormalit y on screening test Problem [facility] [id number] Peripheral edema Problem [facility] [id number] Left arm pain Problem [facility] [id number] Watery eyes Problem [facility] [id number] Shortness of breath Problem [facility] [id number] Acute pain of left shoulder Problem [facility] [id number] Acute pharyngiti s, unspecifie d etiology Problem [facility] [id number] Swelling Problem [facility] Dyspepsia Dyspepsia Problem Comm on [facility] [id number] Chronic kidney disease, stage 4 (severe) Problem [facility] [id number] Postmenopa usal atrophic vaginitis Problem [facility] [id number] Hypomagnes emia Problem [facility] [id number] Suprapubic abdominal pain Problem [facility] [id number] Type 2 diabetes mellitus with diabetic chronic kidney disease Problem [facility] [id number] Seasonal allergies Problem [facility] [id number] History of colon polyps Problem [facility] [id number] Bello's esophagus without dysplasia Problem [facility] [id number] Other chronic pain Problem [facility] [id number] Type 2 diabetes mellitus with hyperglyce jatin Problem [facility] Hyperlipid aemia Hyperlipem ia Problem [facility] [id number] Hypothyroi dism, unspecifie d type Problem [facility] [id number] Sea sickness, initial encounter Problem [facility] [id number] rn long term care (current) use of insulin Problem [facility] [id number] Cough Problem [facility] Allergic rhinitis Allergic rhinitis Problem [facility] Diabetes mellitus without complicati on Diabetes DMII without complicati ons Problem [facility] Essential hypertensi on Essential hypertensi on Problem [facility] Edema Edema Problem [facility] [id number] Hypercalce jatin Problem [facility] Allergies, Adverse Reactions, Alerts Allergy Name Allergy Type Status Severity Reaction(s) Onset Date Inactive Date Treating Clinician Comments Source Penicill ins DA Active MO RASH 2016-08 00:00: 00 [facility] Penicill ins Propensi ty to adverse reaction s Active Rash 02-07 00:00: 00 [facility] PENICILL INS Drug Class Active Rash 02-07 00:00: 00 [facility] Penicill ins Propensi ty to adverse reaction s Active Rash 02-07 00:00: 00 [facility] 0 Drug allergy Active Unknown [facility] Social History Social Habit Start Date Stop Date Quantity Comments Source History of Tobacco Use [facility] Sex Assigned At [facility] Exposure to SARS-CoV-2 (event) 2022-03-30 00:00:00 2022-04-09 12:54:00 Not sure [facility] Alcohol intake 2022-04-09 00:00:00 2022-04-09 00:00:00 Current non-drinker of alcohol (finding) [facility] Tobacco use and exposure 2016-03-07 00:00:00 2016-03-07 00:00:00 Smokeless tobacco non-user [facility] Smoking Status Start Date Stop Date Source Never Smoker [facility] Medications Ordered Medication Name Filled Medication Name Start Date Stop Date Current Medication? Ordering Clinician Indication Dosage Frequency Signature (SIG) Comments Components Source atorvastati n 40 mg tablet 04-09 13:05: 04 Yes 40mg Take 40 mg by mouth at bedtime. [facility] SITagliptin 100 mg tablet 04-09 13:02: 31 Yes 1 tablet [facility] sulfamethox azole-trime thoprim (BACTRIM DS) 800-160 mg per tablet 04-09 12:47: 20 04-09 00:00 :00 No 1 tablet [facility] aspirin (ASPIR-81) 81 mg EC tablet 04-09 12:46: 30 Yes 1 tablet [facility] neomycin-po lymyxin-dex amethasone (MAXITROL) 3.5 mg/g-10,000 unit/g-0.1 % ophthalmic ointment 03-01 14:10: 00 03-01 14:22 :00 No PRN, Starting on Sun03/01/22 at 0910, Until Sun03/01/22 at 09, Routine, Intra-op [facility] dexamethaso ne (DECADRON PHOSPHATE) injection 03-01 14:09: 00 03-01 14:22 :00 No PRN, Starting on Sun03/01/22 at 0909, Until Sun03/01/22 at 0922, Routine, Intra-op [facility] ceFAZolin (ANCEF) injection 03-01 14:09: 00 03-01 14:22 :00 No PRN, Starting on Sun03/01/22 at 0909, Until Sun03/01/22 at 09, JEFF, Intra-op [facility] carbachoL (MIOSTAT) 0.01 % intraocular injection 03-01 14:08: 00 03-01 14:22 :00 No PRN, Starting on Sun03/01/22 at 0908, Until Sun03/01/22 at 09, Routine, Intra-op [facility] chondroitin sulf-sod hyaluronate (DUOVISC VISCO ELASTIC) intraocular injection 03-01 14:08: 00 03-01 14:22 :00 No PRN, Starting on Sun03/01/22 at 0908, Until Sun03/01/22 at 09, Routine, Intra-op [facility] EPINEPHrine 1:1,000 (1 mg/mL) (ADRENALIN) injection 03-01 14:05: 00 03-01 14:22 :00 No PRN, Starting on Sun03/01/22 at 0905, Until Sun03/01/22 at 09, Routine, Intra-op [facility] balanced salt irrig soln comb1 (BSS PLUS) ophthalmic solution 500 mL bag 03-01 14:05: 00 03-01 14:22 :00 No PRN, Starting on Sun03/01/22 at 0905, Until Sun03/01/22 at 09, Routine, Intra-op [facility] sodium chloride (NS) injection 03-01 14:05: 00 03-01 14:22 :00 No PRN, Starting on Sun03/01/22 at 0905, Until Sun03/01/22 at 09, Routine, Intra-op [facility] water for irrigation irrigation solution 03-01 14:02: 00 03-01 14:22 :00 No PRN, Starting on Sun03/01/22 at 0902, Until Sun03/01/22 at 09, Routine, Intra-op [facility] Hyaluronida se, Human Recomb. (HYLENEX) injection 03-01 13:58: 00 03-01 14:22 :00 No PRN, Starting on Sun03/01/22 at 0858, Until Sun03/01/22 at 0922, Routine, Intra-op [facility] eye block syringe 11 mL 03-01 13:58: 00 03-01 14:22 :00 No PRN, Starting on Sun03/01/22 at 0858, Until Sun03/01/22 at 0922, Intra-op [facility] cyclopent 1%-tropic 1%-phenyl 2.5%-ketor 0.5% (MYDRIATIC #5) ophthalmic solution syringe 0.5 mL 03-01 13:00: 00 03-01 12:49 :00 No .5mL 0.5 mL, Right Eye, ONCE, 1 dose, On Sun03/01/22 at 0800, Routine, DSU Pre-op [facility] lactated ringers IV infusion 1,000 mL 03-01 13:00: 00 03-01 12:52 :00 No 1000mL at 42 mL/hr, 1,000 mL, IV Infusion, ONCE, 1 dose, On Sun03/01/22 at 0800, Routine, DSU Pre-op [facility] ASPIRIN 81 MG ORAL TAB 03-01 09:55: 29 Yes 81mg Take 81 mg by mouth daily. [facility] insulin glarginejovananlog (LANTUS SC) 03-01 09:55: 29 Yes 50U inject 50 Units under the skin daily. Each morning [facility] neomycin-po lymyxin-dex amethasone (MAXITROL) 3.5 mg/g-10,000 unit/g-0.1 % ophthalmic ointment 02-15 14:31: 00 02-15 14:34 :14 No PRN, Starting on Sun02/15/22 at 0931, Until Sun02/15/22 at 0934, Routine, Intra-op [facility] sodium chloride (NS) injection 02-15 14:28: 00 02-15 14:34 :14 No PRN, Starting on Sun02/15/22 at 0928, Until Sun02/15/22 at 0934, Routine, Intra-op [facility] dexamethaso ne (DECADRON PHOSPHATE) injection 02-15 14:28: 00 02-15 14:34 :14 No PRN, Starting on Sun02/15/22 at 0928, Until Sun02/15/22 at 0934, Routine, Intra-op [facility] ceFAZolin (ANCEF) injection 02-15 14:28: 00 02-15 14:34 :14 No PRN, Starting on Sun02/15/22 at 0928, Until Sun02/15/22 at 0934, JEFF, Intra-op [facility] carbachoL (MIOSTAT) 0.01 % intraocular injection 02-15 14:26: 00 02-15 14:34 :14 No PRN, Starting on Sun02/15/22 at 0926, Until Sun02/15/22 at 0934, Routine, Intra-op [facility] EPINEPHrine 1:1,000 (1 mg/mL) (ADRENALIN) injection 02-15 14:14: 00 02-15 14:34 :14 No PRN, Starting on Sun02/15/22 at 0914, Until Sun02/15/22 at 09, Routine, Intra-op [facility] chondroitin sulf-sod hyaluronate (DUOVISC VISCO ELASTIC) intraocular injection 02-15 14:14: 00 02-15 14:34 :14 No PRN, Starting on Sun02/15/22 at 0914, Until Sun02/15/22 at 0934, Routine, Intra-op [facility] balanced salt irrig soln comb1 (BSS PLUS) ophthalmic solution 500 mL bag 02-15 14:14: 00 02-15 14:34 :14 No PRN, Starting on Sun02/15/22 at 0914, Until Sun02/15/22 at 0934, Routine, Intra-op [facility] water for irrigation irrigation solution 02-15 14:11: 00 02-15 14:34 :14 No PRN, Starting on Sun02/15/22 at 0911, Until Sun02/15/22 at 0934, Routine, Intra-op [facility] Hyaluronida se, Human Recomb. (HYLENEX) injection 02-15 14:07: 00 02-15 14:34 :14 No PRN, Starting on Sun02/15/22 at 0907, Until Sun02/15/22 at 0934, Routine, Intra-op [facility] eye block syringe 11 mL 02-15 14:07: 00 02-15 14:34 :14 No PRN, Starting on Sun02/15/22 at 0907, Until Sun02/15/22 at 0934, Intra-op [facility] cyclopent 1%-tropic 1%-phenyl 2.5%-ketor 0.5% (MYDRIATIC #5) ophthalmic solution syringe 0.5 mL 02-15 12:45: 00 02-15 12:48 :00 No .5mL 0.5 mL, Left Eye, ONCE, 1 dose, On Sun02/15/22 at 0745, Routine, DSU Pre-op [facility] lactated ringers IV infusion 1,000 mL 02-15 12:45: 00 02-15 12:59 :00 No 1000mL at 42 mL/hr, 1,000 mL, IV Infusion, ONCE, 1 dose, On Sun02/15/22 at 0745, Routine, DSU Pre-op [facility] ASPIRIN 81 MG ORAL TAB 02-15 10:11: 36 Yes 81mg Take 81 mg by mouth daily. [facility] insulin glargine,jovan pandeyrecGretaanlog (LANTUS SC) 02-15 10:11: 36 Yes 50U inject 50 Units under the skin daily. Each morning [facility] omeprazole 20 mg capsule 02-09 00:00: 00 Yes 20mg Take 20 mg by mouth in the morning and 20 mg in the evening. [facility] Omeprazole 20 MG Omeprazole 20 [...] Units under the skin daily. Each morning [facility] ASPIRIN 81 MG ORAL TAB 02-08 11:06: 37 Yes 81mg Take 81 mg by mouth daily. [facility] Magnesium Oxide 500 mg Cap 2022-0 02-08 00:00: 00 Yes as directed [facility] Magnesium Oxide 500 MG Magnesium Oxide 500 [...] area(s) 2 (two) times daily as needed. [facility] Acyclovir 5 % Acyclovir 5 [...] 00 Yes 2 gram per vaginal [facility] Estrace 0.1 MG/GM Estrace 0.1 MG/GM 2020-0 [...] 11-07 00:00: 00 No Lancets - Pen Tad 32G X 4 MM Pen Tad 32G X 4 MM 0 08-29 00:00: 00 No Pen Tad 32G X 4 MM Pen Tad 32G X 4 MM Pen Tad 32G X 4 MM 0 08-29 00:00: 00 No Pen Tad 32G X 4 MM Pen Tad 32G X 4 MM Pen Tad 32G X 4 MM 0 08-29 00:00: 00 No Pen Tad 32G X 4 MM Pen Tad 32G X 4 MM Pen Tad 32G X 4 MM 0 08-29 00:00: 00 No Pen Tad 32G X 4 MM Pen Tad 32G X 4 MM Pen Tad 32G X 4 MM 0 08-29 00:00: 00 No Pen Tad 32G X 4 MM Pen Tad 32G X 4 MM Pen Tad 32G X 4 MM 0 08-29 00:00: 00 No Pen Tad 32G X 4 MM Pen Tad 32G X 4 MM Pen Tad 32G X 4 MM 0 08-29 00:00: 00 No Pen Tad 32G X 4 MM Pen Tad 32G X 4 MM Pen Tad 32G X 4 MM 0 08-29 00:00: 00 No Pen Tad 32G X 4 MM Pen Tad 32G X 4 MM Pen Tad 32G X 4 MM 0 08-29 00:00: 00 No Pen Tad 32G X 4 MM Pen Tad 32G X 4 MM Pen Tad 32G X 4 MM 0 08-29 00:00: 00 No Pen Tad 32G X 4 MM Pen Tad 32G X 4 MM 0 08-29 00:00: 00 No Pen Tad 32G X 4 MM Pen Tad 32G X 4 MM Pen Tad 32G X 4 MM 0 08-29 00:00: 00 No Pen Tad 32G X 4 MM Pen Tad 32G X 4 MM Pen Tad 32G X 4 MM 0 08-29 00:00: 00 No Pen Tad 32G X 4 MM Pen Tad 32G X 4 MM Pen Tad 32G X 4 MM 0 08-29 00:00: 00 No Pen Tad 32G X 4 MM Pen Tad 32G X 4 MM Pen Tad 32G X 4 MM 0 08-29 00:00: 00 No Pen Tad 32G X 4 MM Pen Tad 32G X 4 MM Pen Tad 32G X 4 MM 0 08-29 00:00: 00 No Pen Tad 32G X 4 MM Pen Tad 32G X 4 MM Pen Tad 32G X 4 MM 0 08-29 00:00: 00 No Pen Tad 32G X 4 MM colchicine (COLCRYS) 0.6 mg tablet 08-13 00:00: 00 Yes .6mg Take 1 tablet [facility] mouth [facility]. [facility] (FREESTYLE LITE METER) Kit 01-29 00:00: 00 Yes Use as directed, DX:E11.9 [facility] blood sugar diagnostic (FREESTYLE LITE STRIPS) strip 01-29 00:00: 00 Yes Use as directed, BID, Dx;E11.9 [facility] traMADOL (ULTRAM) 50 mg tablet 10-01 00:00: 00 Yes 50mg Take 1 tablet by mouth every 6 (six) hours as needed for Pain (scale 4-6). Davin Bowling PA-C / Eliel Bejarano MD JOLANTA# [id number] DPS# [id number] Lic.# [id number] NPI# [id number] [facility] lisinopril (PRINIVIL,Z ESTRIL) 5 mg tablet 2015-08 00:00: 00 Yes [id number] 5mg Take 1 tablet by mouth daily. [facility] acetaminoph en-codeine (TYLENOL #3) 300-30 mg tablet 01-10 00:00: 00 Yes 1{tbl} Take 1 tablet by mouth at bedtime. [facility] Lantus SoloStar Lantus SoloStar Yes Hollie Millender 45 units [facility] Aspir-81 81 MG Aspir-81 81 [...] No 1{table t} Cetirizine HCl 10 MG Allopurinol 100 MG Allopurinol 100 MG [...] HIGH DOSE OVER 65 2021-06-02 15:49:00 Completed [facility] FLUZONE HIGH DOSE OVER 65 FLUZONE HIGH DOSE OVER 65 2021-06-02 15:49:00 Completed [facility] FLUZONE HIGH DOSE OVER 65 FLUZONE HIGH DOSE OVER 65 2021-06-02 15:49:00 Completed [facility] FLUZONE HIGH DOSE OVER 65 FLUZONE HIGH DOSE OVER 65 2021-06-02 15:49:00 Completed [facility] FLUZONE HIGH DOSE OVER 65 FLUZONE HIGH DOSE OVER 65 2021-06-02 15:49:00 Completed [facility] FLUZONE HIGH DOSE OVER 65 FLUZONE HIGH DOSE OVER 65 2021-06-02 15:49:00 Completed [facility] FLUZONE HIGH DOSE OVER 65 FLUZONE HIGH DOSE OVER 65 2021-06-02 15:49:00 Completed [facility] FLUZONE HIGH DOSE OVER 65 FLUZONE HIGH DOSE OVER 65 2021-06-02 15:49:00 Completed [facility] FLUZONE HIGH DOSE OVER 65 FLUZONE HIGH DOSE OVER 65 2021-06-02 15:49:00 Completed [facility] FLUZONE HIGH DOSE OVER 65 FLUZONE HIGH DOSE OVER 65 2021-06-02 15:49:00 Completed [facility] FLUZONE HIGH DOSE OVER 65 FLUZONE HIGH DOSE OVER 65 2021-06-02 15:49:00 Completed [facility] FLUZONE HIGH DOSE OVER 65 FLUZONE HIGH DOSE OVER 65 2021-06-02 15:49:00 Completed [facility] FLUZONE HIGH DOSE OVER 65 FLUZONE HIGH DOSE OVER 65 2021-06-02 15:49:00 Completed [facility] Moderna COVID-19 Vaccine Moderna COVID-19 Vaccine 2021-01-18 15:42:00 Completed [facility] Moderna COVID-19 Vaccine Moderna COVID-19 Vaccine 2021-01-18 15:42:00 Completed [facility] Moderna COVID-19 Vaccine Moderna COVID-19 Vaccine 2021-01-18 15:42:00 Completed [facility] Moderna COVID-19 Vaccine Moderna COVID-19 Vaccine 2021-01-18 15:42:00 Completed [facility] Moderna COVID-19 Vaccine Moderna COVID-19 Vaccine 2021-01-18 15:42:00 Completed [facility] Moderna COVID-19 Vaccine Moderna COVID-19 Vaccine 2021-01-18 15:42:00 Completed [facility] Moderna COVID-19 Vaccine Moderna COVID-19 Vaccine 2021-01-18 15:42:00 Completed [facility] Moderna COVID-19 Vaccine Moderna COVID-19 Vaccine 2021-01-18 15:42:00 Completed [facility] Moderna COVID-19 Vaccine Moderna COVID-19 Vaccine 2021-01-18 15:42:00 Completed [facility] Moderna COVID-19 Vaccine Moderna COVID-19 Vaccine 2021-01-18 15:42:00 Completed [facility] Moderna COVID-19 Vaccine Moderna COVID-19 Vaccine 2021-01-18 15:42:00 Completed [facility] Moderna COVID-19 Vaccine Moderna COVID-19 Vaccine 2021-01-18 15:42:00 Completed [facility] Moderna COVID-19 Vaccine Moderna COVID-19 Vaccine 2020-12-30 08:59:00 Completed [facility] Moderna COVID-19 Vaccine Moderna COVID-19 Vaccine 2020-12-30 08:59:00 Completed [facility] Moderna COVID-19 Vaccine Moderna COVID-19 Vaccine 2020-12-30 08:59:00 Completed [facility] Moderna COVID-19 Vaccine Moderna COVID-19 Vaccine 2020-12-30 08:59:00 Completed [facility] Moderna COVID-19 Vaccine Moderna COVID-19 Vaccine 2020-12-30 08:59:00 Completed [facility] Moderna COVID-19 Vaccine Moderna COVID-19 Vaccine 2020-12-30 08:59:00 Completed [facility] Moderna COVID-19 Vaccine Moderna COVID-19 Vaccine 2020-12-30 08:59:00 Completed [facility] Moderna COVID-19 Vaccine Moderna COVID-19 Vaccine 2020-12-30 08:59:00 Completed [facility] Moderna COVID-19 Vaccine Moderna COVID-19 Vaccine 2020-12-30 08:59:00 Completed [facility] Moderna COVID-19 Vaccine Moderna COVID-19 Vaccine 2020-12-30 08:59:00 Completed [facility] Moderna COVID-19 Vaccine Moderna COVID-19 Vaccine 2020-12-30 08:59:00 Completed [facility] [facility] Moderna COVID-19 Vaccine Moderna COVID-19 Vaccine 2020-12-30 08:59:00 Completed [facility] Moderna COVID-19 Vaccine Moderna COVID-19 Vaccine 2020-12-30 08:59:00 Completed [facility] Moderna COVID-19 Vaccine Moderna COVID-19 Vaccine 2020-12-30 08:59:00 Completed [facility] Moderna COVID-19 Vaccine Moderna COVID-19 Vaccine 2020-12-28 15:42:00 Completed [facility] Moderna COVID-19 Vaccine Moderna COVID-19 Vaccine 2020-12-28 15:42:00 Completed [facility] Influenza Virus Vaccine Quad IM 3+ YRS 2016-05-17 00:00:00 Completed [facility] Influenza Virus Vaccine Quad IM 3+ YRS 2016-05-17 00:00:00 Completed [facility] Influenza Virus Vaccine Quad IM 3+ YRS 2016-05-17 00:00:00 Completed [facility] Influenza Virus Vaccine Quad IM 3+ YRS 2016-05-17 00:00:00 Completed [facility] Influenza Virus Vaccine Quad IM 3+ YRS 2016-05-17 00:00:00 Completed [facility] Influenza Virus Vaccine Quad IM 3+ YRS 2016-05-17 00:00:00 Completed [facility] Influenza Virus Vaccine Quad IM 3+ YRS 2016-05-17 00:00:00 Completed [facility] Influenza Virus Vaccine Quad IM 3+ YRS 2016-05-17 00:00:00 Completed [facility] Influenza Virus Vaccine Quad IM 3+ YRS 2016-05-17 00:00:00 Completed [facility] Influenza Virus Vaccine Quad IM 3+ YRS 2016-05-17 00:00:00 Completed [facility] Influenza Virus Vaccine Quad IM 3+ YRS 2016-05-17 00:00:00 Completed [facility] Influenza Virus Vaccine Quad IM 3+ YRS 2016-05-17 00:00:00 Completed [facility] Influenza Virus Vaccine Quad IM 3+ YRS 2015-05-11 00:00:00 Completed [facility] Pneumococcal Polysaccharide, PPSV23 (PNEUMOVAX) 2015-05-11 00:00:00 Completed [facility] Influenza Virus Vaccine Quad IM 3+ YRS 2015-05-11 00:00:00 Completed [facility] Pneumococcal Polysaccharide, PPSV23 (PNEUMOVAX) 2015-05-11 00:00:00 Completed [facility] Influenza Virus Vaccine Quad IM 3+ YRS 2015-05-11 00:00:00 Completed [facility] Pneumococcal Polysaccharide, PPSV23 (PNEUMOVAX) 2015-05-11 00:00:00 Completed [facility] Influenza Virus Vaccine Quad IM 3+ YRS 2015-05-11 00:00:00 Completed [facility] Pneumococcal Polysaccharide, PPSV23 (PNEUMOVAX) 2015-05-11 00:00:00 Completed [facility] Influenza Virus Vaccine Quad IM 3+ YRS 2015-05-11 00:00:00 Completed [facility] Pneumococcal Polysaccharide, PPSV23 (PNEUMOVAX) 2015-05-11 00:00:00 Completed [facility] Influenza Virus Vaccine Quad IM 3+ YRS 2015-05-11 00:00:00 Completed [facility] Pneumococcal Polysaccharide, PPSV23 (PNEUMOVAX) 2015-05-11 00:00:00 Completed [facility] Influenza Virus Vaccine Quad IM 3+ YRS 2015-05-11 00:00:00 Completed [facility] Pneumococcal Polysaccharide, PPSV23 (PNEUMOVAX) 2015-05-11 00:00:00 Completed [facility] Influenza Virus Vaccine Quad IM 3+ YRS 2015-05-11 00:00:00 Completed [facility] Pneumococcal Polysaccharide, PPSV23 (PNEUMOVAX) 2015-05-11 00:00:00 Completed [facility] Influenza Virus Vaccine Quad IM 3+ YRS 2015-05-11 00:00:00 Completed [facility] Pneumococcal Polysaccharide, PPSV23 (PNEUMOVAX) 2015-05-11 00:00:00 Completed [facility] Influenza Virus Vaccine Quad IM 3+ YRS 2015-05-11 00:00:00 Completed [facility] Pneumococcal Polysaccharide, PPSV23 (PNEUMOVAX) 2015-05-11 00:00:00 Completed [facility] Influenza Virus Vaccine Quad IM 3+ YRS 2015-05-11 00:00:00 Completed [facility] Pneumococcal Polysaccharide, PPSV23 (PNEUMOVAX) 2015-05-11 00:00:00 Completed [facility] Influenza Virus Vaccine Quad IM 3+ YRS 2015-05-11 00:00:00 Completed [facility] Pneumococcal Polysaccharide, PPSV23 (PNEUMOVAX) 2015-05-11 00:00:00 Completed [facility] Zoster(Zostavax)( ingles) 2015-02-11 00:00:00 Completed [facility] Zoster(Zostavax)( ingles) 2015-02-11 00:00:00 Completed [facility] Zoster(Zostavax)( ingles) 2015-02-11 00:00:00 Completed [facility] Zoster(Zostavax)( ingles) 2015-02-11 00:00:00 Completed [facility] Zoster(Zostavax)([facility]) 2015-02-11 00:00:00 Completed [facility] Zoster(Zostavax)([facility]) 2015-02-11 00:00:00 Completed [facility] Zoster(Zostavax)([facility]) 2015-02-11 00:00:00 Completed [facility] Zoster(Zostavax)([facility]) 2015-02-11 00:00:00 Completed [facility] Zoster(Zostavax)([facility]) 2015-02-11 00:00:00 Completed [facility] Zoster(Zostavax)([facility]) 2015-02-11 00:00:00 Completed [facility] Zoster(Zostavax)([facility]) 2015-02-11 00:00:00 Completed [facility] Zoster(Zostavax)([facility]) 2015-02-11 00:00:00 Completed [facility] Moderna COVID-19 Vaccine Moderna COVID-19 Vaccine Unknown Completed [facility] FLUZONE HIGH DOSE OVER 65 FLUZONE HIGH DOSE OVER 65 Unknown Completed [facility] Vital Signs Vital Name Observation Time Observation Value Comments S ource Systolic blood pressure 2022-04-09 18:00:00 140 mm[Hg] [facility] Diastolic blood pressure 2022-04-09 18:00:00 82 mm[Hg] [facility] Heart rate 2022-04-09 18:00:00 63 /min [facility] Respiratory rate 2022-04-09 18:00:00 18 /min [facility] Oxygen saturation in Arterial blood by Pulse oximetry 2022-04-09 18:00:00 98 /min [facility] Body temperature 2022-04-09 17:41:00 36.56 Seda [facility] Body weight 2022-04-09 17:41:00 78.472 kg [facility] BMI 2022-04-09 17:41:00 31.63 kg/m2 [facility] height 2022-03-27 09:40:00 63.50 [in_i] Com [facility] weight 2022-03-27 09:40:00 175.0 [lb_av] Co [facility] temperature 2022-03-27 09:40:00 97.3 [degF] Com [facility] bmi 2022-03-27 09:40:00 30.51 kg/m2 Comm on [facility] oximetry 2022-03-27 09:40:00 98 % Commo n [facility] respiratory rate 2022-03-27 09:40:00 16 /min [facility] blood pressure systolic 2022-03-27 09:40:00 132 mm[Hg] [facility] blood pressure diastolic 2022-03-27 09:40:00 68 mm[Hg] [facility] height 2022-03-14 10:00:00 64.00 [in_i] Com [facility] weight 2022-03-14 10:00:00 174.4 [lb_av] Co [facility] temperature 2022-03-14 10:00:00 97.2 [degF] Com [facility] bmi 2022-03-14 10:00:00 29.93 kg/m2 Comm on [facility] oximetry 2022-03-14 10:00:00 96 % Commo n [facility] respiratory rate 2022-03-14 10:00:00 16 /min [facility] blood pressure systolic 2022-03-14 10:00:00 136 mm[Hg] [facility] blood pressure diastolic 2022-03-14 10:00:00 79 mm[Hg] [facility] Respiratory rate 2022-03-01 14:42:00 18 /min [facility] Heart rate 2022-03-01 14:41:00 70 /min [facility] Oxygen saturation in Arterial blood by Pulse oximetry 2022-03-01 14:41:00 99 /min [facility] Systolic blood pressure 2022-03-01 14:40:00 152 mm[Hg] [facility] Diastolic blood pressure 2022-03-01 14:40:00 80 mm[Hg] [facility] Body temperature 2022-03-01 14:25:00 36.83 Seda [facility] Body height 2022-02-22 18:55:00 157.5 cm [facility] Body weight 2022-02-22 18:55:00 78.9 kg [facility] BMI 2022-02-22 18:55:00 31.81 kg/m2 [facility] Systolic blood pressure 2022-03-01 12:51:00 161 mm[Hg] [facility] Diastolic blood pressure 2022-03-01 12:51:00 93 mm[Hg] [facility] Heart rate 2022-03-01 12:51:00 75 /min [facility] Body temperature 2022-03-01 12:51:00 36.33 Seda [facility] Respiratory rate 2022-03-01 12:51:00 14 /min [facility] Oxygen saturation in Arterial blood by Pulse oximetry 2022-03-01 12:51:00 98 /min [facility] Body height 2022-02-22 18:55:00 157.5 cm [facility] Body weight 2022-02-22 18:55:00 78.9 kg [facility] BMI 2022-02-22 18:55:00 31.81 kg/m2 [facility] Systolic blood pressure 2022-02-15 14:49:00 164 mm[Hg] [facility] Diastolic blood pressure 2022-02-15 14:49:00 89 mm[Hg] [facility] Heart rate 2022-02-15 14:49:00 70 /min [facility] Respiratory rate 2022-02-15 14:49:00 10 /min [facility] Oxygen saturation in Arterial blood by Pulse oximetry 2022-02-15 14:49:00 99 /min [facility] Body temperature 2022-02-15 12:46:00 36.56 Seda [facility] Body height 2022-02-03 15:18:00 157.5 cm [facility] Body weight 2022-02-03 15:18:00 78.9 kg [facility] BMI 2022-02-03 15:18:00 31.81 kg/m2 [facility] Systolic blood pressure 2022-02-15 12:53:00 160 mm[Hg] [facility] Diastolic blood pressure 2022-02-15 12:53:00 89 mm[Hg] [facility] Heart rate 2022-02-15 12:46:00 80 /min [facility] Body temperature 2022-02-15 12:46:00 36.56 Seda [facility] Respiratory rate 2022-02-15 12:46:00 15 /min [facility] Oxygen saturation in Arterial blood by Pulse oximetry 2022-02-15 12:46:00 99 /min [facility] Body height 2022-02-03 15:18:00 157.5 cm [facility] Body weight 2022-02-03 15:18:00 78.9 kg [facility] BMI 2022-02-03 15:18:00 31.81 kg/m2 [facility] height 2022-01-02 09:00:00 64.00 [in_i] Com mon [facility] weight 2022-01-02 09:00:00 172.2 [lb_av] Co mmon [facility] temperature 2022-01-02 09:00:00 97.2 [degF] Com mon [facility] bmi 2022-01-02 09:00:00 29.55 kg/m2 Comm on [facility] oximetry 2022-01-02 09:00:00 98 % Commo n [facility] respiratory rate 2022-01-02 09:00:00 16 /min [facility] blood pressure systolic 2022-01-02 09:00:00 117 mm[Hg] [facility] blood pressure diastolic 2022-01-02 09:00:00 72 mm[Hg] [facility] height 2021-11-08 13:00:00 64.00 [in_i] Com [facility] weight 2021-11-08 13:00:00 170.6 [lb_av] Co mmon [facility] temperature 2021-11-08 13:00:00 97.7 [degF] Com [facility] bmi 2021-11-08 13:00:00 29.28 kg/m2 Comm on [facility] oximetry 2021-11-08 13:00:00 98 % Commo n [facility] respiratory rate 2021-11-08 13:00:00 18 /min [facility] blood pressure systolic 2021-11-08 13:00:00 139 mm[Hg] [facility] blood pressure diastolic 2021-11-08 13:00:00 80 mm[Hg] [facility] height 2021-10-07 14:20:00 64.00 [in_i] Com [facility] weight 2021-10-07 14:20:00 170.2 [lb_av] Co mmon [facility] temperature 2021-10-07 14:20:00 97.3 [degF] Com [facility] bmi 2021-10-07 14:20:00 29.21 kg/m2 Comm on [facility] oximetry 2021-10-07 14:20:00 100 % Commo n [facility] respiratory rate 2021-10-07 14:20:00 16 /min [facility] blood pressure systolic 2021-10-07 14:20:00 121 mm[Hg] [facility] blood pressure diastolic 2021-10-07 14:20:00 86 mm[Hg] [facility] height 2021-10-07 14:00:00 64.00 [in_i] Com [facility] weight 2021-10-07 14:00:00 170.2 [lb_av] Co [facility] temperature 2021-10-07 14:00:00 97.3 [degF] Com [facility] bmi 2021-10-07 14:00:00 29.21 kg/m2 Comm on [facility] oximetry 2021-10-07 14:00:00 100 % Commo n [facility] respiratory rate 2021-10-07 14:00:00 16 /min [facility] blood pressure systolic 2021-10-07 14:00:00 121 mm[Hg] [facility] blood pressure diastolic 2021-10-07 14:00:00 86 mm[Hg] [facility] height 2021-07-14 13:00:00 64.00 [in_i] Com [facility] weight 2021-07-14 13:00:00 170.4 [lb_av] Co [facility] temperature 2021-07-14 13:00:00 98.0 [degF] Com [facility] bmi 2021-07-14 13:00:00 29.25 kg/m2 Comm on [facility] oximetry 2021-07-14 13:00:00 97 % Commo n [facility] respiratory rate 2021-07-14 13:00:00 17 /min [facility] blood pressure systolic 2021-07-14 13:00:00 139 mm[Hg] [facility] blood pressure diastolic 2021-07-14 13:00:00 79 mm[Hg] [facility] height 2021-06-06 16:20:00 64.00 [in_i] Com [facility] weight 2021-06-06 16:20:00 173.0 [lb_av] Co on [facility] temperature 2021-06-06 16:20:00 97.2 [degF] Com [facility] bmi 2021-06-06 16:20:00 29.69 kg/m2 Comm on [facility] oximetry 2021-06-06 16:20:00 97 % Commo n [facility] respiratory rate 2021-06-06 16:20:00 18 /min [facility] blood pressure systolic 2021-06-06 16:20:00 120 mm[Hg] [facility] blood pressure diastolic 2021-06-06 16:20:00 85 mm[Hg] [facility] height 2021-06-02 15:40:00 64.00 [in_i] Com [facility] weight 2021-06-02 15:40:00 170.8 [lb_av] Co [facility] temperature 2021-06-02 15:40:00 97.1 [degF] Com [facility] bmi 2021-06-02 15:40:00 29.31 kg/m2 Comm on [facility] oximetry 2021-06-02 15:40:00 96 % Commo n [facility] respiratory rate 2021-06-02 15:40:00 18 /min [facility] blood pressure systolic 2021-06-02 15:40:00 124 mm[Hg] [facility] blood pressure diastolic 2021-06-02 15:40:00 80 mm[Hg] [facility] height 2021-04-13 11:00:00 64.00 [in_i] Com [facility] weight 2021-04-13 11:00:00 174 [lb_av] Comm on [facility] bmi 2021-04-13 11:00:00 29.86 kg/m2 Comm on [facility] Procedures Procedure Date / Time Performed Performing Clinician Source CT TRAUMA HEAD WO CONTRAST 2022-04-09 18:18:44 Nely Scott [facility] CT TRAUMA CERVICAL SPINE WO CONTRAST 2022-04-09 18:18:44 Nely Scott [facility] CONSENT/REFUSAL FOR DIAGNOSI S AND TREATMENT 2022-04-09 17:37:03 Doctor Unassigned, [place] [facility] PHACOEMULSIFICATION OF CATARACT WITH INTRAOCULAR LENS IMPLANT 2022-03-01 13:48:00 Nicolas Campa [facility] POCT GLUCOSE (AUTOMATED) 2022-03-01 12:47:00 Nicolas Campa [facility] POCT GLUCOSE (AUTOMATED) 2022-03-01 12:47:00 Nicolas Campa [facility] PATIENT QUESTIONNAIRE 2022-03-01 05:01:00 Doctor Unassigned, [place] [facility] DAY SURGERY - ADC 2022-03-01 05:01:00 Doctor Unassigned, [place] [facility] CONSENT/REFUSAL FOR DIAGNOSI S AND TREATMENT 2022-02-27 20:46:38 Doctor Unassigned, [place] [facility] CONSENT/REFUSAL FOR DIAGNOSI S AND TREATMENT 2022-02-27 20:46:38 Doctor Unassigned, [place] [facility] ASSIGNMENT OF BENEFITS 2022-02-27 20:46:13 Doctor Unassigned, [place] [facility] ASSIGNMENT OF BENEFITS 2022-02-27 20:46:13 Doctor Unassigned, [place] [facility] PHACOEMULSIFICATION OF CATARACT WITH INTRAOCULAR LENS IMPLANT 2022-02-15 13:55:00 Nicolas Campa [facility] POCT GLUCOSE (AUTOMATED) 2022-02-15 12:58:00 Nicolas Campa [facility] POCT GLUCOSE (AUTOMATED) 2022-02-15 12:58:00 Nicolas Campa [facility] ASSIGNMENT OF BENEFITS 2022-02-11 13:57:55 Doctor Unassigned, [place] [facility] CBC WITH DIFF 2022-02-08 18:45:00 Nicolas Campa [facility] Encounters Start Date/Time End Date/Time Encounter Type Admission Type Attending [facility] Facility Care Department Encounter ID Source 2024-09-19 15:51:00 Outpatient Claudio Rowe [facility] [id number] [facility] 2023-11-13 15:47:00 Outpatient CALIXTO, Na STLMLC STLMLC [id number] [facility] 2022-07-28 08:19:00 Outpatient Calixto, Na STLMLC STLMLC [id number] [facility] 2022-06-21 10:56:01 Outpatient [place], Na STLMLC STLMLC [id number] [facility] 2022-06-12 10:53:02 Outpatient [place], Na STLMLC STLMLC [id number] [facility] 2022-03-23 09:00:00 Outpatient [place], Na STLMLC STLMLC [id number] [facility] 2022-01-25 09:23:50 Outpatient NICOLAS FARIAS [facility] OPH [id number] [facility] 2021-12-29 07:59:00 Outpatient Cali[place], Na STLMLC STLMLC [id number] [facility] 2021-12-08 11:16:00 Outpatient [place], Na STLMLC STLMLC [id number] [facility] 2021-11-07 11:56:01 Outpatient [place], Na STLMLC STLMLC [id number] [facility] 2021-10-25 15:44:01 Outpatient [place], Na STLMLC STLMLC [id number] [facility] 2021-10-06 10:20:01 Outpatient [place], Na STLMLC STLMLC [id number] [facility] 2021-09-07 12:58:36 Outpatient Cali[place]o, Na STLMLC STLMLC [id number] [facility] 2021-09-07 12:50:14 Outpatient Sahara Na STLMLC STLMLC [id number] [facility] 2021-09-07 12:45:37 Outpatient Sahara Na STLMLC STLMLC [id number] [facility] 2021-09-07 12:36:24 Outpatient Sahara Na STLMLC STLMLC [id number] [facility] 2021-09-07 12:30:55 Outpatient Sahara Na STLMLC STLMLC [id number] [facility] 2021-09-07 12:16:19 Outpatient Jihan Calixto STLMLC STLMLC [id number] [facility] 2021-09-07 12:11:08 Outpatient Toño Álvarez STLMLC STLMLC [id number] [facility] 2021-09-07 12:09:44 Outpatient Toño Álvarez STLMLC STLMLC [id number] [facility] 2021-09-07 12:04:25 Outpatient Toño Álvarez STLMLC STLMLC [id number] [facility] 2021-09-07 12:03:00 Outpatient Toño Álvarez STLMLC STLMLC [id number] [facility] 2021-09-07 11:59:43 Outpatient STLMLC STLMLC [id number] [facility] 2021-09-07 11:25:13 Outpatient Hollie Cheung STLMLC STLMLC [id number] [facility] 2021-09-07 11:02:15 Outpatient Hollie Cheung STLMLC STLMLC [id number] [facility] 2021-09-07 11:01:49 Outpatient Hollie Cheung STLMLC STLMLC [id number] [facility] 2023-11-13 00:00:2023-11-13 00:00:00 (TEL) STLMLC STLMLC [id number] [facility] 2023-03-06 14:09:00 2023-03-06 18:00:00 Emergency Zia Garrison [facility] [id number] [facility] 2022-07-24 00:00:00 2022-07-24 00:00:00 (TEL) STLMLC STLMLC [id number] [facility] 2022-07-19 14:04:03 2022-07-19 14:04:03 Outpatient SFA SFA [id number] Damion Pompa Alcides 2022-07-12 06:31:00 2022-07-13 10:41:00 Inpatient Caitlin Esquivel [facility] [id number].01 [id number] [facility] 2022-07-04 00:00:00 2022-07-04 00:00:00 (TEL) STLMLC STLMLC [id number] [facility] 2022-05-30 00:00:00 2022-05-30 00:00:00 (TEL) STLMLC STLMLC [id number] [facility] 2022-05-26 00:00:00 2022-05-26 00:00:00 (TEL) STLMLC STLMLC [id number] [facility] [facility] 2022-04-10 00:00:00 2022-04-10 00:00:00 (TEL) STLMLC STLMLC [id number] [facility] 2022-04-09 12:43:00 2022-04-09 14:01:00 Emergency X NELY SCOTT [facility] ERT [id number] [facility] 2022-04-09 12:43:00 2022-04-09 14:01:00 Emergency Nely Scott [facility] 1.2.840.114 350.1.13.10 4.2.7.2.686 [id number] [facility] 2022-04-09 00:00:00 2022-04-09 00:00:00 Orders Only Doctor Unassigned, [place] [facility] 1..840.114 350.1.13.10 4.2.7.2.686 [id number] [facility] 2022-03-27 00:00:00 2022-03-27 00:00:00 OFFICE VISIT ESTAB PT LEVEL 4 STLMLC STLMLC [id number] [facility] 2022-03-20 00:00:00 2022-03-20 00:00:00 (TEL) STLMLC STLMLC [id number] [facility] 2022-03-14 23:14:00 2022 14:48:00 Inpatient EM TayoRosalinda HCAPM INTE.02 [id number] [facility] 2022-03-14 23:14:00 2022 14:48:00 Inpatient EM LinaRosalinda shields HCAPM INTE.02 [id number] [facility] 2022-03-15 06:33:00 2022-03-15 06:33:00 Outpatient Rosalinda Cr HCACL LABO [id number] [facility] 2022-03-14 00:00:00 2022-03-14 00:00:00 OFFICE VISIT ESTAB PT LEVEL 4 STLMLC STLMLC [id number] [facility] 2022-03-01 07:39:00 2022-03-01 09:47:00 Outpatient R NICOLAS CAMPA [facility] OPH [id number] [facility] 2022-03-01 07:39:00 2022-03-01 09:47:00 Hospital Encounter Nicolas Campa [facility] 1.2.840.114 350.1.13.10 4.2.7.2.686 [id number] [facility] 2022-03-01 08:25:00 2022-03-01 08:59:00 Surgery Nicolas Campa [facility] 1.2840.114 350.1.13.10 4.2.7.2.686 [id number] [facility] 2022-02-27 15:00:00 2022-02-27 15:15:00 Laboratory Only Only, Adc Test Nicolas Campa [facility] 1.840.114 350.1.13.10 4.2.7.2.686 [id number] [facility] 2022-02-27 15:00:00 2022-02-27 15:00:00 Outpatient R NICOLAS CAMPA [facility] [id number] [facility] 2022-02-15 07:36:00 2022-02-15 09:56:00 Outpatient R NICOLAS CAMPA [facility] OPH [id number] [facility] 2022-02-15 07:36:00 2022-02-15 09:56:00 Hospital Encounter Nicolas Campa [facility] 1.2840.114 350.1.13.10 4.2.7.2.686 [id number] [facility] 2022-02-15 08:25:00 2022-02-15 08:59:00 Surgery Nicolas Campa [facility] 1.2.840.114 350.1.13.10 4.2.7.2.686 [id number] [facility] 2022-02-14 14:15:00 2022-02-14 14:15:00 Outpatient R NICOLAS CAMPA [facility] [id number] [facility] 2022-02-14 14:15:00 2022-02-14 14:15:00 Outpatient R NICOLAS CAMPA [facility] [id number] [facility] 2022-02-14 11:30:00 2022-02-14 11:45:00 Vamp Creaser Visit Pob, Adc Lab Main Nicolas Campa [facility] 1.84.114 350.1.13.10 4.2.7.2.686 [id number] [facility] 2022-02-14 11:30:00 2022-02-14 11:30:00 Outpatient NICOLAS FARIAS [facility] [id number] [facility] 2022-02-11 09:00:00 2022-02-11 09:15:00 Vamp Creaser Visit Pob, Adc Lab Main Sylvia Iglesias [facility] 1.84.114 350.1.13.10 4.2.7.2.686 [id number] [facility] 2022-02-11 09:00:00 2022-02-11 09:00:00 Outpatient SYLVIA MALDONADO [facility] [id number] [facility] 2022-02-11 08:45:00 2022-02-11 09:00:00 Laboratory Only Only, Adc Test Mirian Montalvo [facility] 1.114 350.1.13.10 4.2.7.2.686 [id number] [facility] 2022-02-11 00:00:00 2022-02-11 00:00:00 Orders Only Doctor Unassigned, [place] [facility] 1.114 350.1.13.10 4.2.7.2.686 [id number] [facility] 2022-02-09 00:00:00 2022-02-09 00:00:00 (TEL) STLMLC STLMLC [id number] [facility] 2022-02-08 07:45:00 2022-02-08 08:00:00 Vamp Creaser Visit Pob, Adc Lab Main Nicolas Campa [facility] 1.84.114 350.1.13.10 4.2.7.2.686 [id number] [facility] 2022-02-08 07:45:00 2022-02-08 07:45:00 Outpatient R STONENICOLAS [facility] [id number] [facility] 2022-02-08 00:00:00 2022-02-08 00:00:00 (TEL) STLMLC STLMLC [id number] [facility] 2022-02-08 00:00:00 2022-02-08 00:00:00 (TEL) STLMLC STLMLC [id number] [facility] 2022-01-30 15:15:00 2022-01-30 15:15:00 Outpatient R STONENICOLAS [facility] [id number] [facility] 2022-01-30 00:00:00 2022-01-30 00:00:00 Orders Only Doctor Unassigned, [place] [facility] 1.2.840.114 350.1.13.10 4.2.7.2.686 [id number] [facility] 2022-01-27 00:00:00 2022-01-27 00:00:00 (TEL) STLC STLC [id number] [facility] 2022-01-23 13:00:00 2022-01-23 13:15:00 Vamp Creaser Visit Pob, Adc Lab Main Mirian Montalvo [facility] 1..840.114 350.1.13.10 4.2.7.2.686 [id number] [facility] 2022-01-23 13:00:00 2022-01-23 13:00:00 Outpatient R MIRIAN MONTALVO [facility] [id number] [facility] 2022-01-17 12:05:18 2022-01-17 23:59:00 Outpatient R RADIOLOGY [facility] [id number] [facility] 2022-01-17 12:05:18 2022-01-17 23:59:00 Hospital Encounter Radiology [facility] 1.2.840.114 350.1.13.10 4.2.7.2.686 [id number] [facility] 2022-01-17 12:00:00 2022-01-17 12:15:00 Vamp Creaser Visit Pob, Adc Lab Main Mirian Montalvo [facility] 1.2.840.114 350.1.13.10 4.2.7.2.686 [id number] [facility] 2022-01-06 00:00:00 2022-01-06 00:00:00 (TEL) STLMLC STLMLC [id number] [facility] 2022-01-03 11:52:59 2022-01-03 23:59:00 Outpatient R RADIOLOGY [facility] [id number] [facility] 2022-01-03 11:52:59 2022-01-03 23:59:00 Hospital Encounter Radiology [facility] 1.2840.114 350.1.13.10 4.2.7.2.686 [id number] [facility] 2022-01-02 00:00:00 2022-01-02 00:00:00 (TEL) STLMLC STLMLC [id number] [facility] 2022-01-02 00:00:00 2022-01-02 00:00:00 OFFICE VISIT ESTAB PT LEVEL 4 STLMLC STLMLC [id number] [facility] 2021-12-27 00:00:00 2021-12-27 00:00:00 (TEL) STLMLC STLMLC [id number] [facility] 2021-12-23 14:17:19 2021-12-23 23:59:00 Hospital Encounter Radiology [facility] 1.2.840.114 350.1.13.10 4.2.7.2.686 [id number] [facility] 2021-12-23 14:16:57 2021-12-23 14:16:57 Outpatient R RADIOLOGY [facility] [id number] [facility] 2021-12-23 14:16:57 2021-12-23 14:16:57 Hospital Encounter Radiology [facility] 1.2.840.114 350.1.13.10 4.2.7.2.686 [id number] [facility] 2021-12-06 00:00:00 2021-12-06 00:00:00 (TEL) STLMLC STLMLC [id number] [facility] 2021-11-17 13:17:58 2021-11-17 23:59:00 Hospital Encounter Radiology [facility] 1.2.840.114 350.1.13.10 4.2.7.2.686 [id number] [facility] 2021-11-17 13:17:06 2021-11-17 23:59:00 Hospital Encounter Radiology [facility] 1.2.840.114 350.1.13.10 4.2.7.2.686 [id number] [facility] 2021-11-17 13:17:06 2021-11-17 23:59:00 Outpatient R RADIOLOGY [facility] RAD [id number] [facility] 2021-11-11 00:00:00 2021-11-11 00:00:00 (TEL) STLMLC STLMLC [id number] [facility] 2021-11-08 00:00:00 2021-11-08 00:00:00 OFFICE VISIT EST PT LEVEL 3 STLMLC STLMLC [id number] [facility] 2021-11-03 14:15:00 2021-11-03 14:30:00 Vamp Creaser Visit Pob, Adc Lab Main [facility] 1.2.840.114 350.1.13.10 4.2.7.2.686 [id number] [facility] 2021-11-03 14:15:00 2021-11-03 14:15:00 Outpatient MIRIAN FELIZ [facility] [id number] [facility] 2021-11-03 00:00:00 2021-11-03 00:00:00 Orders Only Doctor Unassigned, [place] [facility] 1.2.840.114 350.1.13.10 4.2.7.2.686 [id number] [facility] 2021-10-24 00:00:00 2021-10-24 00:00:00 (TEL) STLMLC STLMLC [id number] [facility] 2021-10-10 00:00:00 2021-10-10 00:00:00 (TEL) STLMLC STLMLC [id number] [facility] 2021-10-07 00:00:00 2021-10-07 00:00:00 SUB ANNUAL [facility] WELLNESS VISIT STLMLC STLMLC [id number] [facility] 2021-10-07 00:00:00 2021-10-07 00:00:00 OFFICE VISIT EST PT LEVEL 3 STLMLC STLMLC [id number] [facility] 2021-07-25 00:00:00 2021-07-25 00:00:00 (TEL) STLMLC STLMLC [id number] [facility] 2021-07-14 00:00:00 2021-07-14 00:00:00 OFFICE VISIT ESTAB PT LEVEL 4 STLMLC STLMLC [id number] [facility] 2021-06-20 00:00:00 2021-06-20 00:00:00 (TEL) STLMLC STLMLC [id number] [facility] 2021-06-10 00:00:00 2021-06-10 00:00:00 (TEL) STLMLC STLMLC [id number] [facility] 2021-06-06 00:00:00 2021-06-06 00:00:00 (TEL) STLMLC STLMLC [id number] [facility] 2021-06-06 00:00:00 2021-06-06 00:00:00 OFFICE VISIT EST PT LEVEL 3 STLMLC STLMLC [id number] [facility] 2021-06-02 00:00:00 2021-06-02 00:00:00 OFFICE VISIT EST PT LEVEL 3 STLMLC STLMLC [id number] [facility] 2021-04-13 00:00:00 2021-04-13 00:00:00 OFFICE VISIT ESTAB PT LEVEL 4 STLMLC STLMLC [id number] [facility] 2021-04-05 00:00:00 2021-04-05 00:00:00 Outpatient STLMLC STLMLC [id number] [facility] 2021-03-01 00:00:00 2021-03-01 00:00:00 Outpatient STLMLC STLMLC [id number] [facility] 2020-12-13 00:00:00 2020-12-13 00:00:00 Outpatient STLMLC STLMLC [id number] [facility] 2020-11-21 00:00:00 2020-11-21 00:00:00 Outpatient STLMLC STLMLC [id number] [facility] 2020-11-08 00:00:00 2020-11-08 00:00:00 Outpatient STLMLC STLMLC [id number] [facility] 2020-10-14 00:00:00 2020-10-14 00:00:00 Outpatient STLMLC STLMLC [id number] [facility] 2020-07-21 00:00:00 2020-07-21 00:00:00 Outpatient STLMLC STLMLC [id number] [facility] 2020-06-29 00:00:00 2020-06-29 00:00:00 Outpatient STLMLC STLMLC [id number] [facility] 2020-06-22 00:00:00 2020-06-22 00:00:00 [facility] [id number] [facility] 2020-04-27 15:47:00 2020-04-27 15:47:00 [facility] [id number] [facility] 2020-04-12 11:12:00 2020-04-12 11:12:00 [facility]patient [facility] [id number] [facility] 2020-04-06 08:16:00 2020-04-06 08:16:00 Outpatient [facility] [id number] [facility] 2020-03-11 09:40:00 2020-03-11 09:40:[address] [facility] [facility] [id number] [facility] 2020-01-16 15:20:00 2020-01-16 15:20:[address] [facility] [id number] [facility] 2019-11-27 10:51:00 2019-11-27 10:51:00 [address] [facility] [id number] [facility] 2019-11-20 08:43:00 2019-11-20 08:43:[address] [facility] [id number] [facility] 2019-11-18 14:00:00 2019-11-18 14:00:00 [facility] [facility] [id number] [facility] 2019-11-18 10:06:00 2019-11-18 10:06:00 [address] [facility] [id number] [facility] 2019-10-28 16:14:00 2019-10-28 16:14:[address] [facility] [id number] [facility] 2019-10-26 23:58:00 2019-10-26 23:58:00 [address] [facility] [id number] [facility] 2019-10-23 08:30:00 2019-10-23 08:30:00 [facility] [facility] [id number] [facility] 2019-09-07 02:09:00 2019-09-07 02:09:00 [facility] [id number] [facility] 2019-09-04 08:39:00 2019-09-04 08:39:[address] [facility] [id number] [facility] 2019-09-03 15:00:00 2019-09-03 15:00:[address] [facility] [id number] [facility] 2019-08-05 08:20:00 2019-08-05 08:20:00 [address] [facility] [address] [facility] [id number] [facility] 2019-07-23 11:48:00 2019-07-23 11:48:[address] [facility] [id number] [facility] 2019-07-04 11:00:00 2019-07-04 11:00:[address] [facility] [id number] [facility] 2019-06-16 14:52:00 2019-06-16 14:52:00 Outpatient Porfirio Morelos DO Porfirio Morelos DO [id number] [facility] 2019-06-05 12:07:00 2019-06-05 12:07:00 [address] [facility] [id number] [facility] 2019-04-23 09:47:00 2019-04-23 09:47:00 Outpatient [facility] [id number] [facility] 2019-04-15 13:00:00 2019-04-15 13:00:00 Outpatient [facility] [id number] [facility] Results Test Description Test Time Test Comments Results Result Co mments Source PROTHROMBIN [id number] 15:52:00* Test Item Value Reference Range Interpretation [...] Infarction (to prevent recurrent infarct). THROMBOPLASTIN TIME [id number] 15:52:00* Test Item Value Reference Range Interpretation Comme nts THROMBOPLASTIN TIME PARTIAL (test code = PTT) 36.9 SECONDS 26-35 H CBC W/AUTO [id number] 15:47:00* Test Item Value Reference Range Interpretation [...] = MDIFF) NO DIFF/SCN CRITERIA COAGULATION TIME [id number] 17:42:00* Test Item Value Reference Range Interpretation Comme nts COAGULATION TIME ACTIVATED ( test code = ACT) 292 SECistat 74-125 H BASIC METABOLIC [id number] 09:30:00* Test Item Value Reference Range Interpretation [...] CA) 8.9 MG/DL 8.5-10.1 N GLUCOSE BEDSIDE [id number] 08:19:00* Test Item Value Reference Range Interpretation Comme nts GLUCOSE BEDSIDE TESTING (latrice t code = GLUBED) 159 mg/dL 70-110 H GLUCOSE BEDSIDE [id number] 17:09:00* Test Item Value Reference Range Interpretation Comme nts GLUCOSE BEDSIDE TESTING (latrice t code = GLUBED) 166 mg/dL 70-110 H COAGULATION TIME [id number] 10:57:00* Test Item Value Reference Range Interpretation Comme nts COAGULATION TIME ACTIVATED ( test code = ACT) 305 SECistat 74-125 H - XR CHEST 1 [id number] 07:51:00 [facility] : 1950 Sex: F Name: ANNIE CLAROS [facility] : 1950 Age/S: 72 / F [id number] Unit #: [id number] Loc: [place] [address] Phys: Caitlin Wood MD Acct: [id number] Dis Date: Status: REG [facility] PHONE #: [phone] Exam Date: 07/12/2022 0740 FAX #: Reason: PRE OP EXAMS: CPT: [id number] XR CHEST 1 V 05943 Fluoro Time: DAP (Gy m2): Air Kerma [...] Wood MD PAGE 1 Signed Report Name: ANNIE CLAROS [facility] : 1950 Age/S: 72 / F [id number] [place] [address] Unit #: [id number] Loc: [place] [address] Phys: Caitlin Leblanc MD Acct: [id number] Dis Date: Status: REG [facility] PHONE #: [phone] Exam Date: 07/12/2022 0740 FAX #: Reason: PRE OP EXAMS: CPT: [id number] XR CHEST 1 V 55707 Fluoro Time: DAP (Gy m2): Air Kerma (mGy): (Continued) Technologist: Asley Lebouf, RT,(R),(CT) Trnscb Date/Time: 07/12/2022 (0751) [email or web address] Orig Print D/T: S: 07/12/2022 (0048) PAGE 2 Signed ReportPROTHROMBIN [id number] 14:37:00* Test Item Value Reference Range Interpretation [...] Infarction (to prevent recurrent infarct). THROMBOPLASTIN TIME [id number] 14:37:00* Test Item Value Reference Range Interpretation Comme nts THROMBOPLASTIN TIME PARTIAL (test code = PTT) 31.4 SECONDS 26-35 N BASIC METABOLIC [id number] 13:58:00* Test Item Value Reference Range Interpretation [...] CA) 9.7 MG/DL 8.5-10.1 N CBC W/AUTO [id number] 13:57:00* Test Item Value Reference Range Interpretation [...] = MDIFF) NO DIFF/SCN CRITERIA GLUCOSE BEDSIDE [id number] 11:36:00* Test Item Value Reference Range Interpretation Comme nts GLUCOSE BEDSIDE TESTING (latrice t code = GLUBED) 258 mg/dL 70-110 H BASIC METABOLIC [id number] 09:00:00* Test Item Value Reference Range Interpretation [...] code = CA) 9.8 MG/DL 8.5-10.1 N [id number] 09:00:00* Test Item Value Reference Range Interpretation Comme nts MAGNESIUM (test code = MAG) 1.8 MG/DL 1.8-2.4 N GLUCOSE BEDSIDE [id number] 08:04:00* Test Item Value Reference Range Interpretation Comme nts GLUCOSE BEDSIDE TESTING (latrice t code = GLUBED) 240 mg/dL 70-110 H GLUCOSE BEDSIDE [id number] 20:51:00* Test Item Value Reference Range Interpretation Comme nts GLUCOSE BEDSIDE TESTING (latrice t code = GLUBED) 232 mg/dL 70-110 H GLUCOSE BEDSIDE [id number] 08:24:00* Test Item Value Reference Range Interpretation Comme nts GLUCOSE BEDSIDE TESTING (latrice t code = GLUBED) 207 mg/dL 70-110 H GLYCOSYLATED HEMOGLOBIN [id number] 06:51:00* Test Item Value Reference Range Interpretation Comme nts GLYCOSYLATED HEMOGLOBIN (HA1 C) (test code = GLYHGB) 9.2 % A1C 0.0-5.7 H ESTIMATED AVERAGE GLUCOSE (t est code = EAG) 217 MG/DLest BASIC METABOLIC [id number] 06:42:00* Test Item Value Reference Range Interpretation [...] = LDL) 102 MG/DL 0-129 N <100 MPCQYXV85 0 - 129 NEAR OPTIMAL/ABOVE [id number] - 159 [id number] - 189 HIGH>OR= 190 VERY HIGHNOTE THAT GUIDELINES ARE PROVIDED BY NATIONAL CHOLESTEROLEDUCATION PROGRAM ADULT TREATMENT PANEL III LDL/HDL (test code = LDL/HDL) 4.08 Ratio See_Comment H [Automated messa ge] The system which generated this result transmitted reference range: 1.48-3.22 Avg. The reference range was not used to interpret this result as normal/abnormal. [id number] 06:42:00* Test Item Value Reference Range Interpretation Comme nts MAGNESIUM (test code = MAG) 1.4 MG/DL 1.8-2.4 L NT PRO-BRAIN NATRIURETIC [id number] 06:38:00* Test Item Value Reference Range Interpretation Comme nts NT PRO-BRAIN NATRIURETIC PEP TI (test code = PROBNP) 75 PG/ML 0-100 N CBC W/AUTO [id number] 06:23:00* Test Item Value Reference Range Interpretation [...] = MDIFF) NO DIFF/SCN CRITERIA GLUCOSE BEDSIDE [id number] 20:50:00* Test Item Value Reference Range Interpretation Comme nts GLUCOSE BEDSIDE TESTING (latrice t code = GLUBED) 223 mg/dL 70-110 H GLUCOSE BEDSIDE [id number] 16:40:00* Test Item Value Reference Range Interpretation Comme nts GLUCOSE BEDSIDE TESTING (latrice t code = GLUBED) 272 mg/dL 70-110 H - MRI BRAIN W/O [id number] 11:44:00 [facility] : 1950 Sex: F FAX: Rosalinda Cr MD Camps: PM St: ADM Name: ANNIE CLAROS [facility] : 1950 Age/S: 71/F [id number] Unit #:[id number] Loc: [place] [address] Phys: Rosalinda Cr MD Acct: [id number] Dis Date: Status: ADM IN PHONE #: [phone] Exam Date: 03/15/2022 1139 FAX #: Reason: acute stroke EXAMS: CPT: [id number] MRI BRAIN W/O CONTRAST [id number] EXAM: - MRI BRAIN W/O CONTRAST INDICATION: [...] Technologist: Maxine Mcgraw, RT(R)(MR) Transcribed Date/Time/By: 03/15/2022 (3613) :[email or web address] Orig Print D/T: S: 03/15/2022 (2817) PAGE 1 Signed Report GLUCOSE BEDSIDE [id number] 10:51:00* Test Item Value Reference Range Interpretation Comme nts GLUCOSE BEDSIDE TESTING (latrice t code = GLUBED) 135 mg/dL 70-110 H UA RFLX MICR CULT IF [id number] 06:07:00* Test Item Value Reference Range Interpretation [...] OF URINE: CLEAN CATCHCOVID 19 Asymptomatic IH [id number] 23:03:00* Test Item Value Reference Range Interpretation Comme nts COVID 19 Asymptomatic IH AG (test code = COVNONPUIAG) NEGATIVE Negative Per customer account manager , negative results should be treated aspresumptive [...] consistent with COVID-19. - XR CHEST 1 [id number] 22:28:00 [facility] : 1950 Sex: F Name: ANNIE CLAROS [facility] : 1950 Age/S: 71 / F [id number] Unit #: [id number] Loc: [place] [address] Phys: Elina Starks DO Acct: [id number] Dis Date: Status: REG ER PHONE #: [phone] Exam Date: 03/14/20222208 FAX #: Reason: Code Stroke EXAMS: CPT: [id number] XR CHEST 1 V 02670 Fluoro Time: DAP (Gy m2): Air Kerma (mGy): EXAM: Chest x-ray, 1 view Dictation location: [id number]: None INDICATION: Code Stroke DISCUSSION: No consolidation, pneumothorax, or pleural effusion is seen. The cardiomediastinal silhouette is within normal limits. No acute bony abnormalitiesare identified. IMPRESSION: No evidence of acute abnormality. at 2228 Reported and signed by: Lm Watts M.D. CC: Elina Starks DO PAGE 1 Signed Report Name: ANNIE CLAROS [facility] : 1950 Age/S: 71 / F [address] Unit #: [id number] Loc: [place] [address] Phys: Elina Starks DO Acct: [id number] Dis Date: Status: REG ER PHONE #: [phone] Exam Date: 03/14/20222208 FAX #: Reason: Code Stroke EXAMS: CPT: [id number] XR CHEST 1 V 93467 Fluoro Time: DAP (Gy m2): Air Kerma (mGy): (Continued)Technologist: Socrates Boone, RT(R) Trnscb Date/Time: 03/14/2022 (2227) tTOM.BC0 Orig Print D/T: S: 03/14/2022 (2231) PAGE 2 Signed Report- CT ANGIO [id number] 22:23:00 [facility] : 1950 Sex: F Name: ANNIE CLAROS [facility] : 1950 Age/S: 71 / F [id number] [address] Unit #: [id number] Loc: [place] [address] Phys: Elina Starks DO Acct: [id number] Dis Date: Status: REG ER PHONE #: [phone] Exam Date: 03/14/20222199 FAX #: Reason: expressive aphasia EXAMS: CPT: [id number] CT ANGIO NECK [address]97[address] EXAM: CTA head with contrast and CTA [...] 1 Signed Report (CONTINUED) Name: ANNIE CLAROS [facility] Emma : 1950 Age/S: 71 / F [address] [facility] Unit #: [id number] Loc: [place] [address] Phys: Elina Starks DO Acct: [id number] Dis Date: Status: REG ER PHONE #: [phone] Exam Date: 03/14/2022 2200 FAX #: Reason: expressive aphasia EXAMS: CPT: [id number] CT ANGIO NECK 48839 (Continued) Other findings: There is no cervical [...] Date/Time: 03/14/2022 (2222) t.BENJAMÍNR.BC0 Orig Print D/T: S:03/14/2022 (2225) PAGE 2 Signed Report- CT ANGIO [id number] 22:23:00 [facility] : 1950 Sex: F Name:ANNIE CLAROS [facility] : 1950 Age/S: 71 / F [address] [address] Unit #: [id number] Loc: [place] [address] Phys: Elina Starks DO Acct: [id number] Dis Date: Status: REG ER PHONE #: [phone] Exam Date: 03/14/20222199 FAX #: Reason: expressive aphasia EXAMS: CPT: [id number] CT ANGIO HEAD [address] EXAM: CTA head with contrast and CTA [...] 1 Signed Report (CONTINUED) Name: ANNIE CLAROS [facility] : 1950 Age/S: 71 / F [address] [address] Unit #: [id number] Loc: [place] [address] Phys: Elina Starks DO Acct: [id number] Dis Date: Status: REG ER PHONE #: [phone] Exam Date: 03/14/20222199 FAX #: Reason: e xpressive aphasia EXAMS: CPT: [id number] CT ANGIO HEAD [address] (Continued) Other findings: There is no cervical [...] (2222) t.BENJAMÍNR.BC0 Orig Print D/T: S: 03/14/2022 (1845) PAGE 2 Signed ReportBASIC METABOLIC [id number] 22:15:00* Test Item Value Reference Range Interpretation [...] 8.5-10.1 N Completed by Nursing: NOTROP-I HIGH [id number] 22:15:00* Test Item Value Reference Range Interpretation [...] may varyby method. Completed by Nursing: NOPROTHROMBIN [id number] 22:11:00* Test Item Value Reference Range Interpretation [...] Infarction (to prevent recurrent infarct). THROMBOPLASTIN TIME [id number] 22:11:00* Test Item Value Reference Range Interpretation Comme nts THROMBOPLASTIN TIME PARTIAL (test code = PTT) 31.1 SECONDS 26-35 N CBC W/O [id number] 22:02:00* Test Item Value Reference Range Interpretation [...] fL 7.0-10.5 H - CT HEAD/BRAIN W/O [id number] 22:00:00 [facility] : 1950 Sex: F Name: ANNIE CLAROS [facility] : 1950 Age/S: 71 / F [address] [facility] [place] Unit #: [id number] Loc: [place] [address] Phys: Elina Starks DO Acct: [id number] Dis Date: Status: PRE ER PHONE #: [phone] Exam Date: 03/14/20222149 FAX #: Reason: expressive aphasia EXAMS: CPT: [id number] CT HEAD/BRAIN W/O CONT 00809 Location: CT head, 03/14/22 COMPARISON EXAMS:None of [...] subarachnoid hemorrhage is identified. No intra or extra-axialmasses. Bone windows unremarkable. No significant sinus disease [...] in a watershed distribution between the left BACK TENDER PAPER MACHINE and MCA territory. No other findings of [...] CLAROS : 1950 Age/S: 71 / F [address] [address] Unit #: [id number] Loc: [place] [address] Phys: Elina Starks DO Acct: [id number] Dis Date: Status: PRE ER PHONE #: [phone] Exam Date: 03/14/2022 2150 FAX #: Reason: expressive aphasia EXAMS: CPT: [id number] CT HEAD/BRAIN W/O CONT 63303 (Continued) FOR INTERNAL CODING PURPOSES ONLY RESULT CODE: CVRMD at 2200 Reported and signed by: Adri Hicks M.D. CC: Elina Starks DO Technologist:Socrates Boone, RT(R); Esperanza CTDI: DLP: Trnscb Date/Time: 03/14/2022 (2199) t.SDR.DAS6 Orig Print D/T: S: 03/14/2022 (2202) PAGE 2 [facility] GLUCOSE (AUTOMATED)2022-03-01 13:03:23* Test Item Value Reference Range Interpretation Comme nts POCT GLU (test code = 6057866881) 321 mg/dL 70-110 H Lab Interpretation (test cod e = 27840-7) Abnormal [facility] GLUCOSE (AUTOMATED)2022-03-01 13:03:23* Test Item Value Reference Range Interpretation Comme nts POCT GLU (test code = 3268212891) 321 mg/dL 70-110 H Lab Interpretation (test cod e = 62298-9) Abnormal [facility] [id number] 12:47:00* Test Item Value Reference Range Interpretation Comme nts POCT Glu (age>30days) (test code = 3342) 321 mg/dL 70-110 A Lab Interpretation (test cod e = 00726-0) Abnormal [facility] Pkjwdpy1841-07-77 12:47:00* Test Item Value Reference Range Interpretation Comme nts POCT Glu (age>30days) (test code = 3342) 321 mg/dL 70-110 A Lab Interpretation (test cod e = 71859-4) Abnormal [facility] GLUCOSE (AUTOMATED)2022-02-15 13:02:47* Test Item Value Reference Range Interpretation Comme nts POCT GLU (test code = 9730600084) 152 mg/dL 70-110 H Lab Interpretation (test cod e = 93726-5) Abnormal [facility] GLUCOSE (AUTOMATED)2022-02-15 13:02:47* Test Item Value Reference Range Interpretation Comme nts POCT GLU (test code = 5505761099) 152 mg/dL 70-110 H Lab Interpretation (test cod e = 69344-7) Abnormal [facility] [id number] 12:58:00* Test Item Value Reference Range Interpretation Comme nts POCT Glu (age>30days) (test code = 3342) 152 mg/dL 70-110 A Lab Interpretation (test cod e = 55518-6) Abnormal [facility] [id number] 12:58:00* Test Item Value Reference Range Interpretation Comme nts POCT Glu (age>30days) (test code = 3342) 152 mg/dL 70-110 A Lab Interpretation (test cod e = 70417-1) Abnormal [facility],Krmvzubralgok1816-64-87 00:00:00 * Test Item Value Reference Range Interpretation Comme nts Urine Culture,Comprehensive (test code = 630-4) Final report Notes Date/Time Note Provider Source 2023-03-06 15:09:00 [facility]) EMERGENCY PROVIDER REPORT REPORT#:[id number] REPORT STATUS: Signed DATE:03/06/23 TIME:1509 PATIENT: ANNIE CLAROS UNIT #: [id number] ROOM/BED: : 52 AGE: 73 SEX: F [...] 75 MG PO DAILY #30 TAB Prov: 12/01/22 Reported Medications SUCRALFATE (CARAFATE) 1 GM PO [...] - 1.2 INR Unit) 1.48 H PTT ([place]) (26 - 35 SECONDS) 36.9 H PT [...] (Auto) (20.5 - 51.1 %) 18.4 L [place] % (Auto) (1.7 - 9.3 %) 7.1 Eos % (Auto) (0.0 - 6.0 %) 1.2 Baso % (Auto) (0.0 - 2.0 %) 1.0 Neut # (Auto) (1.8 - 7.6 K/mm3) 5.5 Lymph # (Auto) (0.6 - 3.2 K/mm3) 1.4 [place] # (Auto) (0.3 - 1.1 K/mm3) 0.5 [...] Apixaban Oral Tablet at 1042 RPT #: [id number] END OF REPORT [facility] 2022-07-13 10:12:00 [facility] ([facility]) Hospitalist Discharge Summary REPORT#:[id number] REPORT STATUS: Signed DATE:07/13/22 TIME:1012 PATIENT: ANNIE CLAROS UNIT #: [id number] ROOM/BED: [facility] : [birth year] AGE: 72 SEX: F [...] Musculoskeletal: normal inspection, painless range of motion Neuro/COPING MACHINE OPERATOR: alert, oriented X 3 Skin: dry, intact [...] Home/Self Care Additional Discharge Routines: PCP Follow-Up, Trader Follow-Up Diet: Cardiac Activity: As Tolerated Follow-up [...] of my knowledge. at 2058 RPT #: [id number] END OF REPORT [facility] 2022-07-13 09:24:00 [facility] Cardiology Progress Note REPORT#:[id number] REPORT STATUS: Signed DATE:07/13/22 TIME:923 PATIENT: ANNIE CLAROS UNIT #: [id number] ROOM/BED: [place] [address] : [birth year] AGE: 72 SEX: F ATTEND: [...] Sodium Chloride (0.9% Sodium Chloride) 1,000 ML .[id number] IV Status post: pci to RCA Physical [...] LE assessment: no edema Musculoskeletal: normal inspection Neuro/COPING MACHINE OPERATOR: alert, oriented X 3 Skin: dry, intact, [...] Wood in 1-2 weeks at 1511 at 1488 RPT #: [id number] END OF REPORT [facility] 2022-07-12 12:06:00 [facility] ([facility]) Hospitalist History Physical REPORT#:[id number] REPORT STATUS: Signed DATE:07/12/22 TIME:1206 PATIENT: ANNIE CLAROS UNIT #: [id number] ROOM/BED: [place] [address] : [birth year] AGE: 72 SEX: F ATTEND: [...] Musculoskeletal: normal inspection, painless range of motion Neuro/COPING MACHINE OPERATOR: alert, oriented X 3 Skin: dry, intact [...] -PATRICK initiated, educated on need for compliance. -Livestock Agent following. -continue OMT #CKDIII- post contrast exposure [...] of my knowledge. at 1501 RPT #: [id number] END OF REPORT [facility] 2022-07-12 12:01:00 [facility] ([facility] DT Operative Note REPORT#:[id number] REPORT STATUS: Signed DATE:07/12/22 TIME:1201 PATIENT: ANNIE CLAROS UNIT #: [id number] ROOM/BED: : 52 AGE: 72 SEX: F ATTEND: Caitlin Wood MD ADM AUTHOR: Caitlin Wood MD * ALL edits or amendments must be made on the electronic/computer document * Operative Report Operative Note Note: Cardiac catheterization procedure note Location: [facility] catheterization Lab Date of service: July 12, 2022 Attending physician: Caitlin Wood MD Pre-operative diagnosis: Angina despite medical therapy with abnormal stress test Post-operative diagnosis: Same as above in addition to: 1. Severe single-vessel coronary disease of the mid LCx status post IVUS guided PCI with 2 PATRICK 2. Uncontrolled hypertension elevated LVEDP Procedure: - Moderate sedation -Right radial artery access, 5/6 [place]i slender sheath -Selective coronary angiography -Left heart catheterization -IVUS of the LCx -Successful PCI to the LCx with 3.0 x 28 mm and 2.25 x 24 mm Synergy XD PATRICK -27872 Moderate sedation, initial 15 minutes -52803 CAG+LHC -19892 PATRICK LCx -06369(+) IVUS LCx Findings: Coronary Anatomy: -Left main: [...] moderate sedation was ordered and monitored by me. The right radial artery site was draped and prepped in the usual sterile fashion. Local anesthesia with 1% lidocaine was used to anesthetize the right radial artery access site. Using Seldinger technique a 5/6 [place]i slender sheath was introduced over the wire into the right radial artery without difficulty. A cocktail of verapamil and nitroglycerin was given IA as above. A 5 Bahraini Jim Thorpe 4.0 catheter was introduced through the RRA [...] was focal 80 -90%. Utilizing the 6 Bahraini XB 3.0 guiding catheter, I selectively engaged the left. IV heparin was used for anticoagulation and ACT was measured periodically throughout theprocedure to maintain an ACT of 200-300 seconds. After adequate anticoagulation a run-through coronary wire was used to cross the lesion into the distal segment. I then introduced a Atco IVUS Ritchie eye over the wire and examined the [...] concerns were addressed. Caitlin Wood MD Attending Livestock Agent [facility] Cardiology at 1208 [facility] #: [id number] END OF REPORT [facility] 2022 13:39:00 [facility] ([facility]) Hospitalist Discharge Summary REPORT#:[id number] REPORT STATUS: Signed DATE:03/17/22 TIME:1339 PATIENT: ANNIE CLAROS UNIT #: [id number] ROOM/BED: [place] [address] : [birth year] AGE: 72 SEX: F ATTEND: [...] PFO management. She was followed closely by fly setter. Patient has a history of diabetes mellitus with hemoglobin A1c of 9.2 and hypertension. She also had a CKD 3 and the creatinine remained at baseline. She remained hemodynamically stable for discharge and will follow up with her PCP, neurologist and fly setter outpatient. Pt. condition on discharge: stable Free [...] Room air 03/17 1109 Temp 97.9 03/17 110 Pulse 72 03/17 1109 Resp 16 03/17 110 FiO2 21 03/17 08 Head/Eyes: atraumatic, clear [...] Musculoskeletal: normal inspection, painless range of motion Neuro/COPING MACHINE OPERATOR: abnormal speech, alert, oriented X 3 Skin: dry, intact Psychiatry: normal affect, normal judgment/insight, normal mood, not homicidal, not suicidal Results Findings/Data: Laboratory Tests: 03/17 03/17 03/17 03/16 1108 0814 7004 2024 Chemistry Sodium (134 - 147 mmol/L) [...] Home/Self Care Additional Discharge Routines: PCP Follow-Up, Trader Follow-Up Diet: Cardiac Activity: Resume Normal Activity, As Tolerated Follow-up Appointments PCP follow-up: PCP: Jihan Calixto DO PCP follow up timeframe: In 1-2 weeks Consulting provider 1: Provider 1: Erick Barrios MD Specialty: Neurology Consult follow up timeframe: In 1-2 weeks at 1632 RPT #: [id number] END OF REPORT [facility] 2022 07:57:00 [facility] Cardiology Progress Note REPORT#:[id number] REPORT STATUS: Signed DATE:03/17/22 TIME:756 PATIENT: ANNIE CLAROS UNIT #: [id number] ROOM/BED: [place] [address] : [birth year] AGE: 72 SEX: F ATTEND: Rosalinda Cr MD ADM AUTHOR: Daria Muhammad AGACNP * ALL edits or amendments must be made on the electronic/computer document * Subjective Patient reports: No: complaints. Objective General VS/I O: Vital Signs: Date Time Temp Pulse Resp B/P B/P Pulse O2 O2 Flow FiO2 Mean Ox Delivery Rate 03/17 728 36.6 76 16 152/77 102.2 97 Room air 03/17 0520 36.6 80 16 132/79 96.9 98 Room air 03/16 2353 36.8 81 17 120/71 87.1 98 Room air 03/16 1918 36.7 79 16 178/81 113.3 99 03/16 1904 97 Room air 21 03/16 1550 [...] LE assessment: no edema Musculoskeletal: normal inspection Neuro/COPING MACHINE OPERATOR: alert, oriented X 3 Skin: dry, intact [...] weeks at 1121 at 1706 RPT #: [id number] END OF REPORT [facility] 2022-03-16 14:49:00 [facility] Neurology Progress Note REPORT#:[id number] REPORT STATUS: Signed DATE:03/16/22 TIME:1449 PATIENT: ANNIE CLAROS UNIT #: [id number] ROOM/BED: [place] [address] : [birth year] AGE: 72 SEX: F ATTEND: [...] THE MORN; #5 - [facility] SUCRALFATE (CARAFATE) 1 GM PO AC HS [...] 0.4 MG ASDIR PRN IV Phenol (Chloraseptic [place]) 1 SPRAY ASDIR PRN MM Insulin Human [...] % (Auto) (20.5 - 51.1 %) 29.7 [place] % (Auto) (1.7 - 9.3 %) 9.2 Eos % (Auto) (0.0 - 6.0 %) 5.4 Baso % (Auto) (0.0 - 2.0 %) 0.8 Neut # (Auto) (1.8 - 7.6 K/mm3) 3.6 Lymph # (Auto) (0.6 - 3.2 K/mm3) 2.0 [place] # (Auto) (0.3 - 1.1 K/mm3) 0.6 [...] for the consult at 1309 RPT #: [id number] END OF REPORT [facility] 2022-03-16 13:02:00 [id number] [facility] [id number] [place] [address] PATIENT NAME: ANNIE CLAROS ADMIT DATE: 03/14/22 ACCOUNT NO: [id number] ROOM NO: [facility] AGE: 71 REPORT TYPE: eTRANSESOPHAGEL REPORT SEX: F ADMITTING PHYSICIAN: Rosalinda Cr MD ATTENDING PHYSICIAN: Rosalinda Cr MD *[facility] [address] [place], [place] [address] Transesophageal Echocardiogram Patient: Annie Claros Study Date: 03/16/2022 BP: Location: [facility] URN: [id number] : 1950 Age: 71 Height: 65 in / 165 cm Gender: F Weight: 169 lb / 76.8 kg BMI/BSA: 28.2 kg/m 2 / 1.9 m 2 *Ordering Physician: * Daria Muhammad *Interpreting Physician: * Caitlin Wood MD *Cytology Laboratory Manager: * Allison Cedeño Indications: CVA, PFO. Study data: Procedure: Transesophageal echocardiography was performed. An adult multiplane transesophageal probe was inserted by the attending fly setter without difficulty. Image quality was adequate. The [...] NAME: ANNIE CLAROS baseline state, shows a qgjr-vg-qlekc atrial level shunt. Aorta: The aortic root [...] Doppler in the baseline state, shows a qniq-jy-xwhzm atrial level shunt. Prepared and electronically signed by Caitlin Wood MD 03/16/2022 13:02 at 1302 PATIENT NAME: ANNIE CLAROS [facility] 2022-03-16 09:08:00 [facility] ([facility]) Hospitalist Progress Note REPORT#:[id number] REPORT STATUS: Signed DATE:03/16/22 TIME:907 PATIENT: ANNIE CLAROS UNIT #: [id number] ROOM/BED: S203-1 : [birth year] AGE: 71 SEX: [...] 1948 98.2 75 19 122/76 91.6 97 / 1600 96 Room air 21 03/15 1513 [...] 0.4 MG ASDIR PRN IV Phenol (Chloraseptic [place]) 1 SPRAY ASDIR PRN MM Insulin Human [...] Musculoskeletal: normal inspection, painless range of motion Neuro/COPING MACHINE OPERATOR: abnormal speech, alert, oriented X 3 Skin: [...] % (Auto) (20.5 - 51.1 %) 29.7 [place] % (Auto) (1.7 - 9.3 %) 9.2 Eos % (Auto) (0.0 - 6.0 %) 5.4 Baso % (Auto) (0.0 - 2.0 %) 0.8 Neut # (Auto) (1.8 - 7.6 K/mm3) 3.6 Lymph # (Auto) (0.6 - 3.2 K/mm3) 2.0 [place] # (Auto) (0.3 - 1.1 K/mm3) 0.6 [...] Active THER ACTIVIT DIR 15 MIN 03/16 155 Active GAIT TRAINING 15 MIN 03/16 155 [...] daughter at bedside. at 1601 RPT #: [id number] END OF REPORT [facility] 2022-03-16 08:43:00 [facility] ([facility] Cardiology Progress Note REPORT#:[id number] REPORT STATUS: Signed DATE:03/16/22 TIME:0843 PATIENT: ANNIE CLAROS UNIT #: [id number] ROOM/BED: [place] [address] : [birth year] AGE: 72 SEX: F ATTEND: [...] 1957 97 Room air 21 03/15 1948 36.8 75 19 122/76 91.6 97 03/15 [...] 0.4 MG ASDIR PRN IV Phenol (Chloraseptic [place]) 1 SPRAY ASDIR PRN MM Insulin Human [...] LE assessment: no edema Musculoskeletal: normal inspection Neuro/COPING MACHINE OPERATOR: alert, oriented X 3 Skin: dry, intact [...] % (Auto) (20.5 - 51.1 %) 29.7 [place] % (Auto) (1.7 - 9.3 %) 9.2 Eos % (Auto) (0.0 - 6.0 %) 5.4 Baso % (Auto) (0.0 - 2.0 %) 0.8 Neut # (Auto) (1.8 - 7.6 K/mm3) 3.6 Lymph # (Auto) (0.6 - 3.2 K/mm3) 2.0 [place] # (Auto) (0.3 - 1.1 K/mm3) 0.6 [...] process seen. Impression By: AlphonsoAHEmerita Lance M.D. Telemetry Interpretation: sinus rhythm Diagnosis, [...] attending at 1334 at 1120 RPT #: [id number] END OF REPORT [facility] 2022-03-15 15:10:00 [facility] ([facility]) Neurology Consultation Note REPORT#:[id number] REPORT STATUS: Signed DATE:03/15/22 TIME:1509 PATIENT: ANNIE CLAROS UNIT #: [id number] ROOM/BED: [place] [address] : [birth year] AGE: 71 SEX: F ATTEND: Rosalinda Cr MD ADM AUTHOR: Preeti Crowell HYDRAULIC SPINNER * ALL edits or amendments must be [...] Documented: Result Date Time Pulse Ox 97 03/15 1513 B/P 131/74 03/15 1513 B/P Mean [...] 0.4 MG ASDIR PRN IV Phenol (Chloraseptic [place]) 1 SPRAY ASDIR PRN MM Insulin Human [...] no edema Musculoskeletal: painless range of motion Neuro/COPING MACHINE OPERATOR: alert, oriented X 4, normal speech, EOMI [...] (0.8 - 1.2 INR Unit) 0.88 PTT ([place]) (26 - 35 SECONDS) 31.1 PT Patient/Control [...] - 7.0 pH UNITS) 6.0 Ur Specific [place] (1.005 - 1.030 SG) <=1.005 Urine Protein [...] consult at 1447 at 1540 RPT #: [id number] END OF REPORT [facility] 2022-03-15 13:23:00 [facility] ([facility]) Cardiology Consultation REPORT#:[id number] REPORT STATUS: Signed DATE:03/15/22 TIME:1323 PATIENT: ANNIE CLAROS UNIT #: [id number] ROOM/BED: [place] [address] : [birth year] AGE: 71 SEX: F ATTEND: Roaslinda Cr MD ADM AUTHOR: Daria Muhammad * [...] 2218 161/74 103 08/02 2213 181/84 116 /02 2205 99 / 2141 36.7 82 18 211/89 129 99 Room air 24 hour I O ending at 0700: 03/15 0700 / 1900 Intake Total Output Total Balance Patient [...] calf tenderness, no edema Musculoskeletal: normal inspection Neuro/COPING MACHINE OPERATOR: alert, oriented X 3 Skin: dry, intact, [...] (0.8 - 1.2 INR Unit) 0.88 PTT ([place]) (26 - 35 SECONDS) 31.1 PT Patient/Control [...] - 7.0 pH UNITS) 6.0 Ur Specific [place] (1.005 - 1.030 SG) <=1.005 Urine Protein [...] M.D. CAT SCAN - CT ANGIO NECK 08/02 2156 Report Impression - Status: SIGNED Entered: [...] referral. at 1530 at 1015 RPT #: [id number] END OF REPORT [facility] 2022-03-15 12:48:00 [id number] [facility] [address] [place] [address] PATIENT NAME: ANNIE CLAROS ADMIT DATE: 03/14/22 ACCOUNT NO: [id number] ROOM NO: [facility] AGE: 71 REPORT TYPE: eECHOCARDIOGRAM REPORT SEX: F ADMITTING PHYSICIAN: Rosalinda Cr MD ATTENDING PHYSICIAN: Rosalinda Cr MD *[facility]* [address] [place], [place] [address] Transthoracic Echocardiogram Patient: Annie Claros Study Date: 03/15/2022 BP: 133 / 55 Location: [facility] URN: [id number] : 1950 Age: 71 Height: 65 in / 165 cm Gender: F Weight: 169 lb / 76.8 kg BMI/BSA: 28.2 kg/m 2 / 1.9 m 2 *Ordering Physician: Rosalinda Marin I *Interpreting Physician: * Caitlin Wood MD *Cytology Laboratory Manager: * Allison Cedeño Indications: STROKE. Study data: [...] ovale. Agitated saline contrast study shows a ozokx-yd-ipav shunt. Aortic valve: The valve is structurally [...] ovale. Agitated saline contrast study shows a wquwu-tr-dial shunt. Impressions: Bubble study is positive for intracardiac shunt possibly a PFO. COURT is recommended. Prepared and electronically signed by PATIENT NAME: ANNIE CLAROS Caitlin Wood MD 03/15/2022 12:47 at 1248 PATIENT NAME: ANNIE CLAROS [facility] 2022-03-15 07:45:00 [facility] Hospitalist History Physical REPORT#:[id number] REPORT STATUS: Signed DATE:03/15/22 TIME:0745 PATIENT: ANNIE CLAROS UNIT #: [id number] ROOM/BED: [place] [address] : [birth year] AGE: 71 SEX: F ATTEND: [...] B/P 113/55 08/03 0515 B/P Mean 74 08/03 0515 Temp 100.8 08/03 0515 Pulse 107 08/03 0515 Resp 14 / 0515 O2 Delivery Room air 08/03 0000 24 hour I O ending at 0700: 08/03 0700 08/02 1900 Intake Total Output Total [...] Musculoskeletal: normal inspection, painless range of motion 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 CAT SCAN - CT ANGIO [...] status: full code at 1355 RPT #: [id number] END OF REPORT [facility] 2022-03-14 22:11:00 [facility] ([facility]) EMERGENCY PROVIDER REPORT REPORT#:[id number] REPORT STATUS: Signed DATE:03/14/22 TIME:2210 PATIENT: ANNIE CLAROS UNIT #: [id number] ROOM/BED: [place] [address] : 52 AGE: 71 SEX: F PCP PHYS: No Primary or Family Physician SERVICE AUTHOR: Elina Starks DO * ALL edits or amendments must be made on the electronic/computer document * HPI-Stroke/CVA General Initial Greet Date/Time 03/14/22 2137 Presentation )( Progression since Onset Gradually improving [...] (0.8 - 1.2 INR Unit) 0.88 PTT ([place]) (26 - 35 SECONDS) 31.1 PT Patient/Control [...] Consultation 1 Referral/Consult Name Amelia Deshpande MD Trader Called Neurology Requested Call Time 2146 Requested Call Date 03/14/22 Call Returned Call returned Call Returned Time 2146 Call Returned Date 03/14/22 Free Text Consult Notes Recommends waiting for her CT results prior to administering TPA Consultation 2 Referral/Consult Name ; Amelia Deshpande MD Trader Called Neurology Requested Call Time 2222 Requested Call Date 03/14/22 Call Returned Call returned Call Returned Time 2223 Call Returned Date 03/14/22 Trader Will see patient Free Text Consult Notes [...] 82 03/14 2141 Resp 18 03/14 2141 All vital signs available at the time of this entry have been reviewed. Clinical Impression Clinical Impression Primary Impression: Stroke Disposition Decision Admit Admit Physician Name Rosalinda Cr MD Admit Physician Hospitalist Request Time 2311 Request Date 03/14/22 )( Admission Accepts Yes )( Accepted Time 2311 )( Accepted Date 03/14/22 Call Information will see patient at 0429 RPT #: [id number] END OF REPORT HCAPM
[2024-09-27] MEDS ORDERED: METOCLOPRAMIDE 10 MG/2mL INJ ONE (16:35)
[2024-09-27 17:00] LABS: Absolute Basophils 0.1 K/uL (0-0.5); Absolute Eosinophils 0.1 K/uL (0-0.5); Absolute Lymphocytes (CBC) 2.1 K/uL (0.7-4.9); Absolute Neutrophil 7.1 K/uL (1.8-8.0); Basophils % 0.8 % (0-1.3); Eosinophils % 1.2 % (0-4.4); Hematocrit 31.1 % (36.0-45.0); Hemoglobin 11.1 g/dL (12.0-15.0); Lymphocytes % 20.3 % (15.3-44.8); MCH 34.9 pg (27.0-35.0); MCHC 35.5 g/dL (32.0-36.0); MCV 98.2 fL (80-100); MPV 9.4 fL (7.6-11.3); Monocytes % 9.2 % (3.3-12.3); Neutrophils % 68.5 % (41.7-73.7); Platelets 180 thou/uL (152-406); RBC Red Blood Cell Count 3.17 M/uL (3.86-4.86); Red Cell Distribution Width 13.2 % (12.1-15.2)
[2024-09-27 17:21] LABS: Troponin High Sensitivity 2942.6 pg/mL (<58.9)
--- NOTE | 2024-09-27 17:32 | ER ---
Nurse's Notes [facility] Name: Annie Zuñiga Age: 74 yrs Sex: Female : 1950 Arrival Date: 09/27/2024 Time: 15:58 Bed 7 Private MD: Diagnosis: NSTEMI Presentation: 09/27 16:16 Chief complaint: Patient states: chest tightness, blurry vision, and tingling to david aa5 hands that is intermittent. Pt reports she was admitted to hospital with same complaints and released Sep.25. Coronavirus screen: At this time, the client does not indicate any symptoms associated with coronavirus-19. Ebola Screen: Patient denies travel to an Ebola-affected area in the 21 days before illness onset. Initial Sepsis Screen: Does the patient meet any 2 criteria? No. Patient's initial sepsis screen is negative. Does the patient have a suspected source of infection? No. Patient's initial sepsis screen is negative. Risk Assessment: Do you want to hurt yourself or someone else? Patient reports no desire to harm self or others. Onset of symptoms was September 2024. 16:16 Acuity: BONI 3 aa5 16:16 Method Of Arrival: Ambulatory aa5 Triage Assessment: 16:15 General: Appears in no apparent distress. Behavior is cooperative, appropriate for age, bp anxious. Pain: Denies pain. EENT: Reports blurred vision. Neuro: No deficits noted. Cardiovascular: No deficits noted. Respiratory: No deficits noted. GI: No signs and/or symptoms were reported involving the gastrointestinal system. : No signs and/or symptoms were reported regarding the genitourinary system. Derm: No deficits noted. Musculoskeletal: No deficits noted. Historical: - Allergies: 16:15 PENICILLINS; aa5 - PMHx: 16:15 CVA; Diabetes - NIDDM; Gout; High Cholesterol; Hypertension; kidney failure; Thyroid aa5 problem; ULCER; - PSHx: 16:15 hysterectomy; loop recorder; aa5 - Immunization history:: Adult Immunizations unknown. - Infectious Disease History:: Denies. - Social history:: Smoking status: Patient denies any tobacco usage or history of. Screenin:47 [facility] ED Fall Risk Assessment (Adult) History of falling in the last 3 months, bp including since admission No falls in past 3 months (0 pts) Confusion or Disorientation No (0 pts) Intoxicated or Sedated No (0 pts) Impaired Gait No (0 pts) Mobility Assist Device Used No (0 pt) Altered Elimination No (0 pt) Score/Fall Risk Level 0 - 2 = Low Risk Oriented to surroundings. Abuse screen: Denies threats or abuse. Denies injuries from another. Nutritional screening: No deficits noted. Tuberculosis screening: No symptoms or risk factors identified. Assessment: 16:15 General: Appears in no apparent distress. Behavior is cooperative, appropriate for age, bp anxious. 18:19 Reassessment: REPORT TO [facility] CABELLO FOR [place] [id number]. TRANSPORT PENDING. bp 18:51 Reassessment: EMS AT B/S FOR TRANSPORT. bp Vital Signs: 16:16 BP 110 / 69; Pulse 87; Resp 16 S; Temp 97.8(TE); Pulse Ox 100% on R/A; Weight 72.57 kg aa5 (R); Height 5 ft. 2 in. (R); 17:15 BP 107 / 72; Pulse 83; Resp 16; Pulse Ox 93% ; bp 18:10 BP 109 / 75; Pulse 83; Resp 19; Pulse Ox 91% ; bp 18:52 BP 111 / 75; Pulse 79; Resp 16; Pulse Ox 97% ; bp 16:16 Body Mass Index 29.26 (72.57 kg, 157.48 cm) aa5 ED Course: 15:59 Patient arrived in ED. [id number] 16:07 Davin Carrillo MD is Attending Physician. ec2 16:15 Arm band placed on. aa5 16:17 Triage completed. aa5 16:30 Lm Rdz, IRINEO is Primary Nurse. bp 16:47 Patient has correct armband on for positive identification. bp 16:47 Initial lab(s) drawn, by nm, sent to lab. EKG done, by ED staff, reviewed by Davin Carrillo MD. Inserted saline lock: 22 gauge in right wrist, using aseptic technique. Blood collected. Flushed with 10 mL NS. 17:32 XRAY Chest (1 view) In Process Unspecified. EDMS 17:35 [facility] talked to Angelita. sp 18:[address] Rojas Wick [facility] 06[facility] Admin approval Angelita Acosta report sp number [phone] faxed demographics to transfer center. 18:31 called [facility] unable to due only having 2 trucks and both cash application representative. called [facility] talked to Nikki. 18:52 No provider procedures requiring assistance completed. Patient transferred, IV remains bp in place. Administered Medications: 16:46 Drug: metoCLOPramide IVP 10 mg IVP once; over 1 to 2 minutes Route: IVP; Site: right bp wrist; 17:33 Follow up: Response: No adverse reaction bp 17:54 Drug: Aspirin PO Chewable Tablet 324 mg PO once; 81 mg tablets x 4 Route: PO; bp 18:53 Follow up: Response: No adverse reaction bp 17:54 Drug: Clopidogrel PO 300 mg PO once Route: PO; bp 18:52 Follow up: Response: No adverse reaction bp 17:55 Drug: Heparin ([place] Drip) 12 units/kg/[place] - ([place] [address] units, D5W IV 500 ml) IV at ko1 calculated rate Per protocol; Max initial rate 1000 units/hr {Co-Signature: (Lm Rdz RN).} Route: IV; Rate: calculated rate; Site: right wrist; 18:53 Follow up: IV Status: Infusion continued upon transfer bp 17:55 Drug: Heparin (ME-Bolus No thrombolytic) - HEParin IVP 60 units/kg IVP once; Max 5000 ko1 units {Co-Signature: (Lm Rdz RN).} Route: IVP; Site: right wrist; 18:53 Follow up: Response: No adverse reaction bp Medication: 16:15 VIS not applicable for this client. bp Outcome: 17:32 ER care complete, transfer ordered by . ec2 18:52 Transferred by ground EMS to [facility], bp 18:52 Condition: stable 18:52 Instructed on the need for transfer, 18:53 Patient left the ED. bp Signatures: Dispatcher [employer] EDShawnee Hutton Audri, RN RN aa5 Lm Rdz RN RN bp Daria [id number] Marion Sarah RN RN ko1 Davin Carrillo MD MD ec2 Lm Rdz RN bp
--- NOTE | 2024-09-27 17:32 | EDPHYS ---
Physician Documentation [facility] Name: Annie Zuñiga Age: 74 yrs Sex: Female : 1950 Arrival Date: 09/27/2024 Time: 15:58 Bed 7 Private MD: ED Physician Davin Carrillo HPI: 09/27 16:38 This 74 yrs old Female presents to ER via Ambulatory with complaints of ec2 Blurred Vision. 16:38 Patient arrives today for evaluation of blurred vision as well as bilateral hand ec2 tingling. Patient reports she was recently here and admitted for the same complaints. External records indicate that she had imaging including CT scans of the head, CT angio of the head and neck as well as MRI which were ultimately nonactionable and patient subsequently discharged. Patient expressed concern that her occasional blurred vision and paresthesias are secondary to previously taking Ozempic. Denies any chest pain or difficulty breathing, denies abdominal pain. Reports that she occasionally has upper abdominal pain that worsens at night.. Historical: - Allergies: 16:15 PENICILLINS; aa5 - PMHx: 16:15 CVA; Diabetes - NIDDM; Gout; High Cholesterol; Hypertension; kidney failure; Thyroid aa5 problem; ULCER; - PSHx: 16:15 hysterectomy; loop recorder; aa5 - Immunization history:: Adult Immunizations unknown. - Infectious Disease History:: Denies. - Social history:: Smoking status: Patient denies any tobacco usage or history of. ROS: 16:39 Constitutional: as per hpi ec2 Exam: 16:39 Constitutional: GEN: NAD Head: atraumatic Eyes: EOMI Ears: External ears are ec2 normal. CV: regular rate LUNGS: no respiratory distress ABD: non-distended SKIN: no evidence of rashes MSK: no evidence of trauma. Neuro: Cranial nerves II through XII intact, strength intact upper extremities, no pronator drift, appropriate sensation throughout. Vital Signs: 16:16 BP 110 / 69; Pulse 87; Resp 16 S; Temp 97.8(TE); Pulse Ox 100% on R/A; Weight 72.57 kg aa5 (R); Height 5 ft. 2 in. (R); 17:15 BP 107 / 72; Pulse 83; Resp 16; Pulse Ox 93% ; bp 18:10 BP 109 / 75; Pulse 83; Resp 19; Pulse Ox 91% ; bp 18:52 BP 111 / 75; Pulse 79; Resp 16; Pulse Ox 97% ; bp 16:16 Body Mass Index 29.26 (72.57 kg, 157.48 cm) aa5 MDM: 16:10 Medical Screening Exam initiated ec2 16:39 Data reviewed: vital signs, nurses notes. ED course: Patient arrives today for blurred ec2 vision and paresthesias. Examination yields intact neuroexam. Will obtain lab work, EKG. Differential includes neuropathy, electrolyte disturbances, renal dysfunction.. 16:41 ED course: EKG independently reviewed and interpreted by me, shows normal sinus rhythm, ec2 rate of 85, no acute ST segment elevations, intervals are nonactionable, T-wave inversions noted. 17:21 ED course: compared to previous ekg, t-wave inversions new. ec2 17:31 ED course: Patient with marked troponin elevation. Patient with new EKG changes ec2 compared to several days ago with T wave inversions. Will transfer patient to cardiac catheterization capable facility as we have no cardiac cath available. On the weekend. 17:36 ED course: Patient with specific request to transfer to [facility]. ec2 17:47 ED course: I discussed the case w/ cardiology at [facility] who agrees to accept ec2 the pt for transfer, pt updated regarding plan of care and is agreeable. 09/27 16:29 Order name: Basic Metabolic Panel; Complete Time: 17:22 ec2 09/27 16:29 Order name: CBC with Diff; Complete Time: 17:22 ec2 09/27 16:29 Order name: Troponin HS; Complete Time: 17:22 ec2 09/27 17:48 Order name: Protime (+inr) bp 09/27 17:48 Order name: Ptt, Activated bp 09/27 16:29 Order name: XRAY Chest (1 view); Complete Time: 17:50 ec2 09/27 16:29 Order name: EKG; Complete Time: 16:30 ec2 09/27 16:29 Order name: Cardiac monitoring; Complete Time: 16:34 ec2 09/27 16:29 Order name: EKG - Nurse/Tech; Complete Time: 16:38 ec2 09/27 16:29 Order name: IV Saline Lock; Complete Time: 16:46 ec2 09/27 16:29 Order name: Labs collected and sent; Complete Time: 16:46 ec2 09/27 16:29 Order name: O2 Per Protocol; Complete Time: 16:34 ec2 09/27 16:29 Order name: O2 Sat Monitoring; Complete Time: 16:34 ec2 Administered Medications: 16:46 Drug: metoCLOPramide IVP 10 mg IVP once; over 1 to 2 minutes Route: IVP; Site: right bp wrist; 17:33 Follow up: Response: No adverse reaction bp 17:54 Drug: Aspirin PO Chewable Tablet 324 mg PO once; 81 mg tablets x 4 Route: PO; bp 18:53 Follow up: Response: No adverse reaction bp 17:54 Drug: Clopidogrel PO 300 mg PO once Route: PO; bp 18:52 Follow up: Response: No adverse reaction bp 17:55 Drug: Heparin ([place] Drip) 12 units/kg/[place] - ([place] [address] units, D5W IV 500 ml) IV at ko1 calculated rate Per protocol; Max initial rate 1000 units/hr {Co-Signature: (Lm Rdz RN).} Route: IV; Rate: calculated rate; Site: right wrist; 18:53 Follow up: IV Status: Infusion continued upon transfer bp 17:55 Drug: Heparin (MN-Bolus No thrombolytic) - HEParin IVP 60 units/kg IVP once; Max 5000 ko1 units {Co-Signature: (Lm Rdz RN).} Route: IVP; Site: right wrist; 18:53 Follow up: Response: No adverse reaction bp Disposition Summary: 09/27/24 17:32 Transfer Ordered Notes: Transfer Location: [facility] ec2 Reason: Higher level of care ec2 Condition: Stable ec2 Problem: new ec2 Symptoms: are unchanged ec2 Accepting Physician: transferring doc(09/27/24 18:53) bp Diagnosis - NSTEMI ec2 Forms: - Medication Reconciliation Form ec2 - SBAR form ec2 Critical care time excluding procedures: 17:31 Critical care time: Bedside Care: 30 minutes, Consultation: 5 minutes. Total time: 35 ec2 minutes Signatures: Dispatcher [employer] EDGloria Colunga RN RN aa5 Lm Rdz RN RN bp Marion Sarah RN RN ko1 Davin Carrillo MD MD ec2 Lm Rdz RN bp Corrections: (The following items were deleted from the chart) 17:21 16:41 ED course: EKG independently reviewed and interpreted by me, shows normal sinus ec2 rhythm, rate of 85, no acute ST segment elevations, intervals are nonactionable.. ec2 18:53 17:32 transferring doc ec2 bp
[2024-09-27] MEDS ORDERED: HEPARIN/D5W 25,000 UNIT/500 ML BAG IV ONE (17:43)
[2024-09-27] MEDS ORDERED: ASPIRIN 81 MG CHEWABLE TABLET ONE (17:43)
[2024-09-27] MEDS ORDERED: HEPARIN 5000 UNIT/ML 1 ML VIAL ONE (17:43)
--- NOTE | 2024-09-27 17:46 | RAD REPORT ---
EXAMINATION: ONE VIEW CHEST XR CLINICAL INDICATION: CHEST PAIN TECHNIQUE: Frontal chest projection is submitted. Examination is limited by patient positioning and t echnique. COMPARISON: 09/24/2014, 08/02/2024 FINDINGS: The lungs are well inflated and clear. The heart is upper limit of normal in size. No displaced fract ures identified. IMPRESSION: No acute intrathoracic abnormalities.
[2024-09-27] MEDS ORDERED: CLOPIDOGREL 75 MG TABLET ONE (17:48)
[2024-09-27 18:17] LABS: PT Prothrombin Time 12.8 SECONDS (9.4-12.5); PTT, Activated Partial Thromb 28.9 SECONDS (24.3-36.9); Protime INR 1.22
[2024-09-27 18:58] VITALS: TEMP 97.8
[2024-09-27 19:01] VITALS: BP 111/75; O2SAT 97
== END 2024-09-27 18:53 | disposition short-term general hospital (02) ==
LOC: ER 15:58
DX: I21.4 Non-ST elevation (NSTEMI) myocardial infarction (principal); I10 Essential (primary) hypertension; E78.00 Pure hypercholesterolemia, unspecified; Z86.73 Personal history of transient ischemic attack (TIA), and cerebral infarction without residual deficits
CPT/HCPCS: 96365; 93005; 85025; 80048; 36415; 85610; 85730; 84484; 71045; 96375; 99285; J1644; J2765

== ENCOUNTER 2024-12-06 10:17 | Emergency (ER) | payer OTHER ==
--- OUTSIDE RECORDS SUMMARY | 2024-12-06 10:28 | XMS REPORT | Continuity of Care Document ---
Author Name Unknown Address [address] [facility] [place] [address] [facility] Address [address] [facility] [address] [place] [address] Care Team Providers Care Digital Printer Name Role Phone JOSE E ROWE Primary Care Physician UnavailJihan Green Attending Clinician Unavailable NICOLAS RITTER Attending Clinician UnavailToño Hunt Attending Clinician Unavailable Hollie Cheung Attending Clinician Unavailable NATALIE SUAREZ Attending Clinician Unavailable NATALIE SUAREZ Attending Clinician Unavailable Natalie Suarez MD Attending Clinician [phone] Heaven CABELLO, Alma Delia Zheng Attending Clinician Unavail able HEVER RICCI Attending Clinician Unavailab HEVER Sims Attending Clinician Unavailab kyara Oh MD, Rosalva Mejai Attending Clinician + [phone] Nichole FLORES, Jay Attending Clinician [phone] Keith Baker MD, Hever Attending Clinician [phone] Tracy FLORES, Jeremiah Attending Clinician [phone] Zia Recio Attending Clinician Unavailable Caitlin Wood Attending Clinician Unavailab ENLY Hernandez Attending Clinician Unavailable Nely Scott NP Attending Clinician [phone] Doctor Unassigned, [place] Attending Clinician U navailable Rosalinda Cr Attending Clinician Unavailable Nicolas Ritter MD Attending Clinician [phone] Only, Adc Test Attending Clinician Unavailable Pob, [facility] Main Attending Clinician Unavailabl e Estefany Iglesias CRNAnyl T Attending Clinician + [phone] SYLVIA IGLESIAS T Attending Clinician UnavailMirian El MD Attending Clinician [phone] MIRIAN SEO Attending Clinician Unavailpriscilla e RADIOLOGY Attending Clinician Unavailable Radiology Attending Clinician Unavailable NICOLAS RITTER Admitting Clinician Unavailab ROSALVA Estrella Admitting Clinician Doc Oh MD, Rosalva Mejia Admitting Clinician + [phone] Jihan Calixto Admitting Clinician Unavailable Rosalinda Cr Admitting Clinician Unavailable NELY SCOTT Admitting Clinician Unavailable Physician, No Primary or Family Admitting Clinic giovanny Unavailable Nicolas Ritter MD Admitting Clinician [phone] JIHAN CALIXTO Admitting Clinician Unavailable Payers Payer Name Policy Type Policy Number Effective Date Expirati on Date Source [facility] [id number] 2021 00:00:00 AARP MEDICARE ADVANTAGE [facility] 53 [id number] 2020 00:00:00 [facility] Problems Condition Name Condition Details Condition Category Status Onset Date Resolution Date Last Treatment Date Treating Clinician Comments Source NSTEMI (non-ST elevated myocardial infarction ) NSTEMI (non-ST elevated myocardial infarction ) Disease Active 2-15 00:00: 00 [facility] Primary hypothyroi dism Primary hypothyroi dism Disease Active 612 00:00: 00 [facility] Arm laceration Arm laceration Disease Active 12-06 00:00: 00 [facility] Obesity (BMI 30-39.9) Obesity (BMI 30-39.9) Disease Active 12-06 00:00: 00 [facility] Hypokalemi a Hypokalemi a Disease Active 05-03 00:00: 00 [facility] Type 2 diabetes mellitus with diabetic chronic kidney disease Type 2 diabetes mellitus with diabetic chronic kidney disease Disease Active 05-03 00:00: 00 [facility] Sleep disorder breathing Sleep disorder breathing Disease Active 04-06 00:00: 00 [facility] Atypical chest pain Atypical chest pain Disease Active 04-06 00:00: 00 [facility] Gouty arthritis Gouty arthritis Disease Active 03-30 00:00: 00 [facility] Hyperurice jatin Hyperurice jatin Disease Active 03-30 00:00: 00 [facility] Encounter for long-term (current) use of other high-risk medication s Encounter for long-term (current) use of other high-risk medication s Disease Active 03-30 00:00: 00 [facility] Osteoarthr itis, generalize d Osteoarthr itis, generalize d Disease Active 03-30 00:00: 00 [facility] CKD (chronic kidney disease) stage 3, GFR 30-59 ml/min CKD (chronic kidney disease) stage 3, GFR 30-59 ml/min Disease Active 03-30 00:00: 00 [facility] Gouty arthritis Gouty arthritis Disease Active 03-30 00:00: 00 [facility] Encounter for long-term (current) use of other high-risk medication s Encounter for long-term (current) use of other high-risk medication s Disease Active 03-30 00:00: 00 [facility] Hypernatre jatin Hypernatre jatin Disease Active 03-02 00:00: 00 [facility] Chronic kidney disease (CKD) stage G3b/A3, moderately decreased glomerular filtration rate (GFR) between 30-44 mL/min/1.7 3 square meter and albuminuri a creatinine ratio greater than 300 mg/g Chronic kidney disease (CKD) stage G3b/A3, moderately decreased glomerular filtration rate (GFR) between 30-44 mL/min/1.7 3 square meter and albuminuri a creatinine ratio greater than 300 mg/g Disease Active 12-26 00:00: 00 [facility] [id number] Chronic gout without tophus, unspecifie d cause, unspecifie d site Problem [facility] [place] [id number] Hypertensi on, unspecifie d type Problem [facility] Impaired memory Impaired memory Problem [facility] Osteoporos is Other osteoporos is Problem [facility] Sinus problem Sinus problem Problem [facility] [id number] Chronic kidney disease, unspecifie d CKD stage Problem [facility] [place] [id number] 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 [facility] [place] [id number] Skin lesions Problem [facility] [place] [id number] Constipati on, unspecifie d constipati on type Problem [facility] [place] [id number] Gastroesop hageal reflux disease, esophagiti s presence not specified Problem [facility] [place] [id number] Abnormal kidney function Problem [facility] [place] [id number] Chest pain, unspecifie d type Problem [facility] [place] [id number] Status post fall [facility] [place] [id number] HDL deficiency Problem [facility] [place] [id number] Mastalgia Problem [facility] [id number] Coccygeal pain Problem [facility] [place] [id number] Left leg pain [facility] [place] Abnormal mammogram Abnormal mammogram Problem [facility] [id number] Abnormalit y on screening test Problem [facility] [place] [id number] Peripheral edema [facility] [place] [id number] Left arm pain [facility] [place] [id number] Watery eyes [facility] [place] [id number] Shortness of breath [facility] [place] [id number] Acute pain of left shoulder [facility] [place] [id number] Acute pharyngiti s, unspecifie d etiology [facility] [place] [id number] Swelling Problem [facility] Dyspepsia Dyspepsia Problem [facility] [id number] Chronic kidney disease, stage 4 (severe) [facility] [place] [id number] Postmenopa usal atrophic vaginitis [facility] [place] [id number] Hypomagnes emia [facility] [place] [id number] Suprapubic abdominal pain [facility] [place] 31359681 Type 2 diabetes mellitus with diabetic chronic kidney disease Problem [facility] [place] [id number] Seasonal allergies Problem [facility] [place] [id number] History of colon polyps [facility] [place] [id number] Bello's esophagus without dysplasia [facility] [place] 11793715 Other chronic pain Problem [facility] [place] [id number] Type 2 diabetes mellitus with hyperglyce jatin [facility] [place] Hyperlipid aemia Hyperlipem ia Problem [facility] [place] [id number] Hypothyroi dism, unspecifie d type Problem [facility] [place] [id number] Sea sickness, initial encounter Problem [facility] [place] [id number] 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 Problem [facility] [id number] Cough Problem [facility] [place] Allergic rhinitis Allergic rhinitis [facility] [place] Diabetes mellitus without complicati on Diabetes DMII without complicati ons [facility] Essential hypertensi on Essential hypertensi on [facility] Edema Edema [facility] [place] 13553131 Hypercalce jatin [facility] Hyperkalem ia Hyperkalem ia Disease Resolve d 12-26 00:00: 00 2016-01-29 00:00:00 2016-01-29 11:00:06 [facility] Allergies, Adverse Reactions, Alerts Allergy Name Allergy Type Status Severity Reaction(s) Onset Date Inactive Date Treating Clinician Comments Source Penicill ins DA Active MO RASH 2016-08 00:00: 00 [facility] Penicill ins Propensi ty to adverse reaction s Active Rash 02-07 00:00: 00 [facility] PENICILL INS Drug Class Active Rash 02-07 00:00: 00 [facility] Penicill ins Propensi ty to adverse reaction s Active Rash 02-07 00:00: 00 [facility] Penicill ins Propensi ty to adverse reaction s Active Rash 02-07 00:00: 00 [facility] 0 Drug allergy Active Unknown [facility] [place] Social History Social Habit Start Date Stop Date Quantity Comments Source History of Tobacco Use [facility] Sex Assigned [facility] intake 2024-09-29 00:00:00 2024-09-29 00:00:00 Current non-drinker of alcohol (finding) [facility] Exposure to SARS-CoV-2 (event) 2022-03-30 00:00:00 2022-04-09 12:54:00 Not sure [facility] Alcohol intake 2022-04-09 00:00:00 2022-04-09 00:00:00 Current non-drinker of alcohol (finding) [facility] History of Social function 2022-03-01 00:00:00 2022-03-01 00:00:00 [facility] Tobacco use and exposure 2016-03-07 00:00:00 2016-03-07 00:00:00 Smokeless tobacco non-user [facility] Smoking Status Start Date Stop Date Source Never smoked tobacco [facility] Medications Ordered Medication Name Filled Medication Name Start Date Stop Date Current Medication? Ordering Clinician Indication Dosage Frequency Signature (SIG) Comments Components Source metoprolol succinate XL 25 mg 24 hr tablet 10-02 00:00: 00 10-01 00:00 :00 Yes [id number] 12.5mg Take 0.5 tablets by mouth in the morning. [facility] levothyroxi ne 50 mcg tablet 10-01 16:05: 40 Yes [id number] 50ug Take 1 tablet by mouth every morning. [facility] glipiZIDE 2.5 mg Tab 10-01 16:05: 40 Yes 2.5mg Take 2.5 mg by mouth in the morning. [facility] ergocalcife rol, vitamin D2, (VITAMIN D ORAL) 10-01 16:05: 40 10-01 00:00 :00 Yes 1000mg Take 1,000 mg by mouth in the morning. [facility] metoprolol succinate XL (TOPROL XL) tablet 12.5 mg 10-01 15:00: 00 10-02 00:05 :51 No 12.5mg 12.5 mg, Oral, DAILY, First dose on Sun10/01/24 at 0900, Until Discontinu ed, Routine [facility] apixaban (ELIQUIS) tablet 5 mg 10-01 15:00: 00 10-01 22:05 :40 No 5mg 5 mg, Oral, BID, First dose on Sun10/01/24 at 0900, Until Discontinu ed, Routine, Indication s: DVT/PE [facility] iodixanoL (VISIPAQUE 320-50 mL) injection 10-01 14:08: 13 10-01 14:20 :52 No ONCE INTRA PROCEDURE, Starting on Sun10/01/24 at 0808, Until Sun10/01/24 at 0820, Routine, CV Intraproce dure [facility] nitroglycer in (TRIDIL) 2 mg in 10 mL D5W for Cardiac Cath 10-01 13:40: 00 10-01 14:20 :52 No ONCE INTRA PROCEDURE, Starting on Sun10/01/24 at 0740, Until Sun10/01/24 at 08, Routine, CV Intraproce dure [facility] heparin 1,000 unit/mL injection 10-01 13:40: 00 10-01 14:20 :52 No ONCE INTRA PROCEDURE, Starting on Sun10/01/24 at 0740, Until Sun10/01/24 at 08, Routine, CV Intraproce dure [facility] lidocaine 1% (XYLOCAINE) 10 mg/mL (1 %) injection 10-01 13:38: 00 10-01 14:20 :52 No ONCE INTRA PROCEDURE, Starting on Sun10/01/24 at 0738, Until Sun10/01/24 at 0820, Routine, CV Intraproce dure [facility] fentanyl PF (SUBLIMAZE (PF)) injection 10-01 13:37: 30 10-01 14:20 :52 No ONCE INTRA PROCEDURE, Starting on Sun10/01/24 at 0737, Until Sun10/01/24 at 0820, Routine, CV Intraproce dure [facility] midazolam (VERSED) injection 10-01 13:37: 00 10-01 14:20 :52 No ONCE INTRA PROCEDURE, Starting on Sun10/01/24 at 0737, Until Sun10/01/24 at 0820, Routine, CV Intraproce dure [facility] ASPIRIN 81 MG ORAL TAB 10-01 12:26: 03 10-01 00:00 :00 No 81mg Take 1 tablet by mouth in the morning. [facility] carvediloL 6.25 mg tablet 10-01 12:26: 03 10-01 00:00 :00 No 1 tablet with food [facility] clopidogreL (PLAVIX) 75 mg tablet 10-01 12:26: 03 10-01 00:00 :00 No 75mg Take 1 tablet by mouth in the morning. [facility] ibuprofen (MOTRIN IB) tablet 200 mg 10-01 06:49: 28 10-01 22:05 :40 No 200mg 200 mg, Oral, Q8HPRN, 2 doses, Starting on Sun10/01/24 at 0049, Until Sun10/01/24 at 1605, Routine, Pain (scale 1-3) [facility] allopurinoL 100 mg tablet 10-01 00:00: 00 Yes [id number] 100mg Take 1 tablet by mouth in the morning. [facility] apixaban (ELIQUIS) 5 mg tablet 10-01 00:00: 00 10-01 00:00 :00 Yes [id number] 5mg Take 1 tablet by mouth in the morning and 1 tablet in the evening. Indication s: DVT prevention , LV Thrombus [facility] atorvastati n 80 mg tablet 10-01 00:00: 00 10-01 00:00 :00 Yes [id number] 80mg Take 1 tablet by mouth at bedtime. [facility] polyethylen e glycol 3350 powder 17 g 09-30 18:00: 00 10-01 22:05 :40 No 17g 17 g, Oral, DAILY, First dose on Sun09/30/24 at 1200, Until Discontinu ed, Routine [facility] magnesium sulfate in water 2 gram/50 mL (4 %) infusion 2 g 09-30 14:30: 00 09-30 15:32 :00 No 2g 2 g, IV Piggyback, Administer over 60 Minutes, ONCE, 1 dose, On Sun09/30/24 at 0830, Routine [facility] apixaban (ELIQUIS) 5 mg tablet 09-30 00:00: 00 10-01 00:00 :00 No [id number] 5mg Take 1 tablet by mouth in the morning and 1 tablet in the evening. Indication s: DVT prevention , LV Thrombus [facility] iopamidol (ISOVUE 370-500 mL) injection 80 mL 09-29 21:30: 00 09-29 20:35 :00 No [id number] 80mL 80 mL, Intravenou s, ONCE, 1 dose, On Sun09/29/24 at 1530, Routine [facility] LORazepam (ATIVAN) tablet 0.5 mg 09-29 16:34: 31 10-01 22:05 :40 No .5mg 0.5 mg, Oral, PRN, 2 doses, Starting on Sun09/29/24 at 1034, Until Sun10/01/24 at 1605, Routine, Anxiety [facility] NaCl 0.9% (NS) bolus infusion 250 mL 09-29 16:30: 00 09-29 18:10 :00 No 250mL at 100 mL/hr, 250 mL, IV Piggyback, ONCE, 1 dose, On Sun09/29/24 at 1030, STAT [facility] metoprolol tartrate (LOPRESSOR) tablet 50 mg 09-29 16:30: 00 09-29 17:03 :00 No 50mg 50 mg, Oral, ONCE, 1 dose, On Sun09/29/24 at 1030, Routine [facility] heparin 25,000 Units/250 mL (Premixed Bag) in 0.45 % NS 09-29 15:30: 00 10-01 14:55 :48 No 0U/h 0-2,150 Units/hr (0-21.5 mL/hr), IV Infusion, CONTINUOUS , Starting on Sun09/29/24 at 0930, Initiate infusion at 1,000 Units/hr (calculate d at 12 units/kg/h r, rounded to the closest 50 units) DO NOT Exceed the MAXIMUM 1,000 units/hr for initiation of heparin infusion. CAUTION - If LMWH given in ER, AVOID bolus and start next dose/drip 12 hrs after ER dosage. Must program rate using programmab le infusion pump. Check with the ordering provider first prior to any administra tion should the patient be on existing/a dditional anticoagul ant therapy. Range, Dosing and Testing: FOR [facility], AND [facility] ONLY - aPTT < 35: Bolus 5000 units, increase rate 300 units/hr - aPTT 35-44: Bolus 3000 units, increase rate 200 units/hr - aPTT 45-54: Increase rate 100 units/hr - aPTT 55-85: NO CHANGE - aPTT 86-95: Decrease rate 100 units/hr - aPTT 96-120: Hold 30 minutes, decrease rate 150 units/hr - aPTT > 120: Hold 60 minutes, decrease rate 200 units/hr Check aPTT 6 hours after initiation , then Q6H after every change, aPTT Q12H once therapeuti c levels are reached. FOR [facility] ONLY - aPTT < 40: Bolus 5000 units, increase rate 300 units/hr - aPTT 40-49: Bolus 3000 units, increase rate 200 units/hr - aPTT 50-59: Increase rate 100 units/hr - aPTT 60-85: NO CHANGE - aPTT 86-95: Decrease rate 100 units/hr - aPTT 96-120: Hold 30 minutes, decrease rate 150 units/hr - aPTT > 120: Hold 60 minutes, decrease rate 200 units/hr Check aPTT 6 hours after initiation , then Q6H after every change, aPTT Q12H once therapeuti c levels are reached. DO NOT ADJUST INITIAL BOLUS OR INITIAL INFUSION RATE. [facility] aspirin chewable tablet 81 mg 09-29 15:00: 00 10-01 22:05 :40 No 81mg 81 mg, Oral, DAILY, First dose on Sun09/29/24 at 0900, Until Discontinu ed, Routine [facility] sennosides (SENOKOT) tablet 8.6 mg 09-29 15:00: 00 10-01 22:05 :40 No 8.6mg 8.6 mg, Oral, DAILY, First dose on Sun09/29/24 at 0900, Until Discontinu ed, Routine [facility] insulin glargine (LANTUS U-100) injection 20 Units 09-29 15:00: 00 10-01 22:05 :40 No 20U 20 Units, Subcutaneo us, DAILY, First dose (after last modificati on) on Sun09/29/24 at 0900, Until Discontinu ed [facility] magnesium sulfate in water 2 gram/50 mL (4 %) infusion 2 g 09-29 14:30: 00 09-29 15:18 :00 No 2g 2 g, IV Piggyback, Administer over 60 Minutes, ONCE, 1 dose, On Sun09/29/24 at 0830, Routine [facility] NaCl 0.9% (NS) bolus infusion 250 mL 09-29 13:31: 00 09-29 14:21 :05 No 250mL at 999 mL/hr, 250 mL, IV Piggyback, ONCE, 1 dose, On Sun09/29/24 at 0745, STAT [facility] atorvastati n (LIPITOR) tablet 80 mg 09-29 03:00: 00 10-02 00:05 :51 No 80mg 80 mg, Oral, QHS, First dose on Sun09/28/24 at 2100, Until Discontinu ed, Routine [facility] perflutren protein-A microsphr (OPTISON) injection 3 mL 09-28 22:45: 00 09-28 22:45 :00 No [id number] 3mL 3 mL, IV Push, ONCE, 1 dose, On Sun09/28/24 at 1645, Routine [facility] Saline Bubble Study 09-28 22:31: 20 10-01 22:05 :40 No [id number] 6mL 6 mL, Injection, SEE-INSTRU CTIONS, Starting on Sun09/28/24 at 1631, Until Sun10/01/24 at 1605, Routine [facility] NaCl 0.9% (NS) IV infusion 500 mL 09-28 17:30: 00 09-29 12:22 :56 No 500mL at 100 mL/hr, IV Infusion, CONTINUOUS , Starting on Sun09/28/24 at 1130, Until Sun09/29/24 at 0622, Routine [facility] iopamidol (ISOVUE 370-500 mL) injection 70 mL 09-28 15:20: 00 09-28 15:20 :00 No [id number] 70mL 70 mL, Intravenou s, ONCE, 1 dose, On Sun09/28/24 at 0930, Routine [facility] NaCl 0.9% (NS) injection 5 mL 09-28 15:08: 22 10-01 22:05 :40 No 5mL 5 mL, Slow IV Push, PRN - SEE INSTRUCTIO NS, Starting on Sun09/28/24 at 0908, Until Sun10/01/24 at 1605, 10 mL [facility] allopurinoL (ZYLOPRIM) tablet 100 mg 09-28 15:00: 00 10-01 22:05 :40 No 100mg 100 mg, Oral, DAILY, First dose on Sun09/28/24 at 0900, Until Discontinu ed, Routine [facility] isosorbide mononitrate (IMDUR) 24 hr tablet 30 mg 09-28 15:00: 00 09-30 14:21 :46 No 30mg 30 mg, Oral, DAILY, First dose on Sun09/28/24 at 0900, Until Discontinu ed [facility] insulin glargine (LANTUS U-100) injection 24 Units 09-28 15:00: 00 09-29 12:32 :22 No 24U 24 Units, Subcutaneo us, DAILY, First dose on 09/28/24 at 0900, Until Discontinu ed [facility] lisinopriL (PRINIVIL,Z ESTRIL) tablet 10 mg 09-28 15:00: 00 09-29 14:03 :40 No 10mg 10 mg, Oral, DAILY, First dose on 09/28/24 at 0900, Until Discontinu ed, Routine [facility] clopidogreL (PLAVIX) 75 mg tablet 75 mg 09-28 15:00: 00 09-29 22:06 :02 No 75mg 75 mg, Oral, DAILY, First dose on 09/28/24 at 0900, Until Discontinu ed, Routine [facility] aspirin EC tablet 81 mg 09-28 15:00: 00 09-29 14:27 :09 No 81mg 81 mg, Oral, DAILY, First dose on 09/28/24 at 0900, Until Discontinu ed [facility] Sliding Scale Insulin - Lispro (HumaLOG) 09-28 14:00: 00 10-01 22:05 :40 No Subcutaneo us, TID MEALS+HS, First dose on 09/28/24 at 0800, Until Discontinu ed, Routine [facility] carvediloL (COREG) tablet 6.25 mg 09-28 14:00: 00 09-29 14:03 :40 No 6.25mg 6.25 mg, Oral, BID MEALS, First dose on 09/28/24 at 0800, Until Discontinu ed, Routine [facility] levothyroxi ne (SYNTHROID) tablet 50 mcg 09-28 12:00: 00 10-01 22:05 :40 No 50ug 50 mcg, Oral, QAM-0600, First dose on 09/28/24 at 0600, Until Discontinu ed, Routine [facility] magnesium sulfate in water 4 gram/50 mL (8 %) IV Piggyback 4 g 09-28 07:45: 00 09-28 09:19 :00 No 4g 4 g, IV Piggyback, at 25 mL/hr Administer over 120 Minutes, ONCE, 1 dose, On 09/28/24 at 0145, [facility] 25,[facility] Units/250 mL (Premixed Bag) in 0.45 % NS 09-28 03:30: 00 09-28 15:02 :50 No 0U/h 0-2,150 Units/hr (0-21.5 mL/hr), IV Infusion, CONTINUOUS , Starting on 09/27/24 at 2130, Initiate infusion at 1,000 Units/hr (calculate d at 12 units/kg/h r, rounded to the closest 50 units) DO NOT Exceed the MAXIMUM 1,000 units/hr for initiation of heparin infusion. CAUTION - If LMWH given in ER, AVOID bolus and start next dose/drip 12 hrs after ER dosage. Must program rate using programmab le infusion pump. Check with the ordering provider first prior to any administra tion should the patient be on existing/a dditional anticoagul ant therapy. Range, Dosing and Testing: FOR [facility], AND [facility] ONLY - aPTT < 35: Bolus 5000 units, increase rate 300 units/hr - aPTT 35-44: Bolus 3000 units, increase rate 200 units/hr - aPTT 45-54: Increase rate 100 units/hr - aPTT 55-85: NO CHANGE - aPTT 86-95: Decrease rate 100 units/hr - aPTT 96-120: Hold 30 minutes, decrease rate 150 units/hr - aPTT > 120: Hold 60 minutes, decrease rate 200 units/hr Check aPTT 6 hours after initiation , then Q6H after every change, aPTT Q12H once therapeuti c levels are reached. FOR [facility] ONLY - aPTT < 40: Bolus 5000 units, increase rate 300 units/hr - aPTT 40-49: Bolus 3000 units, increase rate 200 units/hr - aPTT 50-59: Increase rate 100 units/hr - aPTT 60-85: NO CHANGE - aPTT 86-95: Decrease rate 100 units/hr - aPTT 96-120: Hold 30 minutes, decrease rate 150 units/hr - aPTT > 120: Hold 60 minutes, decrease rate 200 units/hr Check aPTT 6 hours after initiation , then Q6H after every change, aPTT Q12H once therapeuti c levels are reached. DO NOT ADJUST INITIAL BOLUS OR INITIAL INFUSION RATE. [facility] heparin (1,000 unit/mL, 10 mL vial) for Rebolusing 09-28 03:21: 48 10-01 22:05 :40 No 3000U FOR REBOLUSING , Starting on 09/27/24 at 2121, Until 10/01/24 at 1605, Routine, Dosing based on aPTT testing parameters (refer to continuous heparin drip order). [facility] nitroglycer in (NITROSTAT) sublingual tablet 0.4 mg 09-28 03:19: 48 10-01 22:05 :40 No .4mg 0.4 mg, Sublingual , Q5MIN PRN, Starting on 09/27/24 at 2119, Until 10/01/24 at 1605, Routine, Chest pain [facility] glucagon HCL injection 1 mg 09-28 03:12: 00 10-01 22:05 :40 No 1mg 1 mg, Intramuscu lar, PRN, Starting on 09/27/24 at 2112, Until 10/01/24 at 1605, JEFF, Low blood sugar, Blood Glucose < or = 70 mg/dL and patient is NPO, unable to swallow or has mental changes. [facility] dextrose 50 % in water (D50W) injection 25 mL 09-28 03:12: 00 10-01 22:05 :40 No 25mL 25 mL, Slow IV Push, PRN, Starting on 09/27/24 at 2112, Until Sun10/01/24 at 1605, JEFF, Blood Glucose < or = 70 mg/dL and patient is NPO, unable to swallow or has mental status changes. [facility] acetaminoph en (TYLENOL) tablet 650 mg 16 03:06: 43 10-01 22:05 :40 No 650mg 650 mg, Oral, Q6HPRN, Starting on 09/27/24 at 2106, Until Sun10/01/24 at 1605, Routine, Pain (scale 1-3) [facility] atorvastati n 40 mg tablet 09-27 21:20: 32 09-27 00:00 :00 No 40mg Take 1 tablet by mouth at bedtime. [facility] aspirin (ASPIR-81) 81 mg EC tablet 09-27:: 09-27 00:00 :00 No 1 tablet [facility] linaGLIPtin (TRADJENTA) 5 mg tablet 09-27 21:20: 09-27 00:00 :00 No 1 tablet [facility] pantoprazol e 40 mg EC tablet 09-27:: 09-27 00:00 :00 No 1 tablet [facility] prednisoLON E acetate 1 % ophthalmic suspension drops 09-27:: 09-27 00:00 :00 No 1 drop into affected eye [facility] SITagliptin 100 mg tablet 09-27:20: 09-27 00:00 :00 No 1 tablet [facility] atorvastati n 40 mg tablet 04-09 13:05: 04 Yes 40mg Take 40 mg by mouth at bedtime. [facility] SITagliptin 100 mg tablet 04-09 13:02: 31 Yes 1 tablet [facility] sulfamethox azole-trime thoprim (BACTRIM DS) 800-160 mg per tablet 04-09 12:47: 20 04-09 00:00 :00 No 1 tablet [facility] aspirin (ASPIR-81) 81 mg EC tablet 04-09 12:46: 30 Yes 1 tablet [facility] neomycin-po lymyxin-dex amethasone (MAXITROL) 3.5 mg/g-10,000 unit/g-0.1 % ophthalmic ointment 03-01 14:10: 00 03-01 14:22 :00 No PRN, Starting on Sun03/01/22 at 0910, Until Sun03/01/22 at 09, Routine, Intra-op [facility] dexamethaso ne (DECADRON PHOSPHATE) injection 03-01 14:09: 00 03-01 14:22 :00 No PRN, Starting on Sun03/01/22 at 0909, Until Sun03/01/22 at 09, Routine, Intra-op [facility] ceFAZolin (ANCEF) injection 03-01 14:09: 00 03-01 14:22 :00 No PRN, Starting on Sun03/01/22 at 0909, Until Sun03/01/22 at 09, JEFF, Intra-op [facility] carbachoL (MIOSTAT) 0.01 % intraocular injection 03-01 14:08: 00 03-01 14:22 :00 No PRN, Starting on Sun03/01/22 at 0908, Until Sun03/01/22 at 09, Routine, Intra-op [facility] chondroitin sulf-sod hyaluronate (DUOVISC VISCO ELASTIC) intraocular injection 03-01 14:08: 00 03-01 14:22 :00 No PRN, Starting on Sun03/01/22 at 0908, Until Sun03/01/22 at 09, Routine, Intra-op [facility] EPINEPHrine 1:1,000 (1 mg/mL) (ADRENALIN) injection 03-01 14:05: 00 03-01 14:22 :00 No PRN, Starting on Sun03/01/22 at 0905, Until Sun03/01/22 at 09, Routine, Intra-op [facility] balanced salt irrig soln comb1 (BSS PLUS) ophthalmic solution 500 mL bag 03-01 14:05: 00 03-01 14:22 :00 No PRN, Starting on Sun03/01/22 at 0905, Until Sun03/01/22 at 09, Routine, Intra-op [facility] sodium chloride (NS) injection 03-01 14:05: 00 03-01 14:22 :00 No PRN, Starting on Sun03/01/22 at 0905, Until Sun03/01/22 at 09, Routine, Intra-op [facility] water for irrigation irrigation solution 03-01 14:02: 00 03-01 14:22 :00 No PRN, Starting on Sun03/01/22 at 0902, Until Sun03/01/22 at 09, Routine, Intra-op [facility] Hyaluronida se, Human Recomb. (HYLENEX) injection 03-01 13:58: 00 03-01 14:22 :00 No PRN, Starting on Sun03/01/22 at 0858, Until Sun03/01/22 at 09, Routine, Intra-op [facility] eye block syringe 11 mL 03-01 13:58: 00 03-01 14:22 :00 No PRN, Starting on Sun03/01/22 at 0858, Until Sun03/01/22 at 09, Intra-op [facility] cyclopent 1%-tropic 1%-phenyl 2.5%-ketor 0.5% (MYDRIATIC #5) ophthalmic solution syringe 0.5 mL 03-01 13:00: 00 03-01 12:49 :00 No .5mL 0.5 mL, Right Eye, ONCE, 1 dose, On Sun03/01/22 at 0800, Routine, DSU Pre-op [facility] lactated ringers IV infusion 1,000 mL 03-01 13:00: 00 03-01 12:52 :00 No 1000mL at 42 mL/hr, 1,000 mL, IV Infusion, ONCE, 1 dose, On Sun03/01/22 at 0800, Routine, DSU Pre-op [facility] ASPIRIN 81 MG ORAL TAB 03-01 09:55: 29 Yes 81mg Take 81 mg by mouth daily. [facility] insulin glargine,jovan [email or web address] (LANTUS SC) 03-01 09:55: 29 Yes 50U inject 50 Units under the skin daily. Each morning [facility] neomycin-po lymyxin-dex amethasone (MAXITROL) 3.5 mg/g-10,000 unit/g-0.1 % ophthalmic ointment 02-15 14:31: 00 02-15 14:34 :14 No PRN, Starting on Sun02/15/22 at 0931, Until Sun02/15/22 at 0934, Routine, Intra-op [facility] sodium chloride (NS) injection 02-15 14:28: 00 02-15 14:34 :14 No PRN, Starting on Sun02/15/22 at 0928, Until Sun02/15/22 at 0934, Routine, Intra-op [facility] dexamethaso ne (DECADRON PHOSPHATE) injection 02-15 14:28: 00 02-15 14:34 :14 No PRN, Starting on Sun02/15/22 at 0928, Until Sun02/15/22 at 0934, Routine, Intra-op [facility] ceFAZolin (ANCEF) injection 02-15 14:28: 00 02-15 14:34 :14 No PRN, Starting on Sun02/15/22 at 0928, Until Sun02/15/22 at 0934, JEFF, Intra-op [facility] carbachoL (MIOSTAT) 0.01 % intraocular injection 02-15 14:26: 00 02-15 14:34 :14 No PRN, Starting on Sun02/15/22 at 0926, Until Sun02/15/22 at 0934, Routine, Intra-op Univers y [facility] EPINEPHrine 1:1,000 (1 mg/mL) (ADRENALIN) injection 02-15 14:14: 00 02-15 14:34 :14 No PRN, Starting on Sun02/15/22 at 0914, Until Sun02/15/22 at 0934, Routine, Intra-op [facility] chondroitin sulf-sod hyaluronate (DUOVISC VISCO ELASTIC) intraocular injection 02-15 14:14: 00 02-15 14:34 :14 No PRN, Starting on Sun02/15/22 at 0914, Until Sun02/15/22 at 09, Routine, Intra-op [facility] balanced salt irrig soln comb1 (BSS PLUS) ophthalmic solution 500 mL bag 02-15 14:14: 00 02-15 14:34 :14 No PRN, Starting on Sun02/15/22 at 0914, Until Sun02/15/22 at 0934, Routine, Intra-op [facility] water for irrigation irrigation solution 02-15 14:11: 00 02-15 14:34 :14 No PRN, Starting on Sun02/15/22 at 0911, Until Sun02/15/22 at 0934, Routine, Intra-op [facility] Hyaluronida se, Human Recomb. (HYLENEX) injection 02-15 14:07: 00 02-15 14:34 :14 No PRN, Starting on Sun02/15/22 at 0907, Until Sun02/15/22 at 0934, Routine, Intra-op [facility] eye block syringe 11 mL 02-15 14:07: 00 02-15 14:34 :14 No PRN, Starting on Sun02/15/22 at 0907, Until Sun02/15/22 at 0934, Intra-op [facility] cyclopent 1%-tropic 1%-phenyl 2.5%-ketor 0.5% (MYDRIATIC #5) ophthalmic solution syringe 0.5 mL 02-15 12:45: 00 02-15 12:48 :00 No .5mL 0.5 mL, Left Eye, ONCE, 1 dose, On Sun02/15/22 at 0745, Routine, DSU Pre-op [facility] lactated ringers IV infusion 1,000 mL 02-15 12:45: 00 02-15 12:59 :00 No 1000mL at 42 mL/hr, 1,000 mL, IV Infusion, ONCE, 1 dose, On Sun02/15/22 at 0745, Routine, DSU Pre-op [facility] ASPIRIN 81 MG ORAL TAB 02-15 10:11: 36 Yes 81mg Take 81 mg by mouth daily. [facility] insulin glargine,jovan [email or web address] (LANTUS SC) 02-15 10:11: 36 Yes 50U inject 50 Units under the skin daily. Each morning [facility] Omeprazole 20 MG Omeprazole 20 MG [...] No 1{capsu le} BID Omeprazole 20 MG omeprazole 20 mg capsule 02-09 00:00: 00 09-27 00:00 :00 No 20mg Take 20 mg by mouth in the morning and 20 mg in the evening. [facility] Clarithromy marciano 500 MG Clarithromy marciano 500 [...] Units under the skin daily. Each morning [facility] ASPIRIN 81 MG ORAL TAB 02-08 11:06: 37 Yes 81mg Take 81 mg by mouth daily. [facility] Magnesium Oxide 500 MG Magnesium Oxide 500 MG 02-08 00:00: 00 No Magnesium Oxide 500 MG Fish Oil 500 MG Fish Oil 500 MG 02-08 00:00: 00 No 1{capsu le} BID Fish Oil 500 MG Magnesium Oxide 500 MG Magnesium Oxide 500 MG 2022-0 6-29 00:00: 00 No Magnesium Oxide 500 MG Fish Oil 500 MG Fish Oil 500 MG 2022-0 6-29 00:00: 00 No 1{capsu le} BID Fish Oil 500 MG Magnesium Oxide 500 MG Magnesium Oxide 500 MG 2022-0 6-29 00:00: 00 No Magnesium Oxide 500 MG Fish Oil 500 MG Fish Oil 500 MG 2022-0 6-29 00:00: 00 No 1{capsu le} BID Fish Oil 500 MG Magnesium Oxide 500 MG Magnesium Oxide 500 MG 2022-0 6-29 00:00: 00 No Magnesium Oxide 500 MG Fish Oil 500 MG Fish Oil 500 MG 2022-0 6-29 00:00: 00 No 1{capsu le} BID Fish Oil 500 MG Magnesium Oxide 500 MG Magnesium Oxide 500 MG 2022-0 6-29 00:00: 00 No Magnesium Oxide 500 MG Fish Oil 500 MG Fish Oil 500 MG 2022-0 6-29 00:00: 00 No 1{capsu le} BID Fish Oil 500 MG Magnesium Oxide 500 MG Magnesium Oxide 500 MG 2022-0 6-29 00:00: 00 No Magnesium Oxide 500 MG Fish Oil 500 MG Fish Oil 500 MG 2022-0 6-29 00:00: 00 No 1{capsu le} BID Fish Oil 500 MG Magnesium Oxide 500 MG Magnesium Oxide 500 MG 2022-0 6-29 00:00: 00 No Magnesium Oxide 500 MG Fish Oil 500 MG Fish Oil 500 MG 2022-0 6-29 00:00: 00 No 1{capsu le} BID Fish Oil 500 MG Magnesium Oxide 500 MG Magnesium Oxide 500 MG 2022-0 6-29 00:00: 00 No Magnesium Oxide 500 MG Fish Oil 500 MG Fish Oil 500 MG 2022-0 6-29 00:00: 00 No 1{capsu le} BID Fish Oil 500 MG Magnesium Oxide 500 MG Magnesium Oxide 500 MG 2022-0 6-29 00:00: 00 No Magnesium Oxide 500 MG Fish Oil 500 MG Fish Oil 500 MG 2022-0 6-29 00:00: 00 No 1{capsu le} BID Fish Oil 500 MG Magnesium Oxide 500 mg Cap 2022-0 6-29 00:00: 00 15 00:00 :00 No as directed [facility] Cypressotidine 20 mg tablet 01-23 00:00: 00 Yes 20mg Take 1 tablet by mouth in the morning. [facility] triamcinolo ne acetonide 0.1 % cream 01-23 00:00: 00 09-27 00:00 :00 No 1{appli cator} Apply 1 Applicator to area(s) 2 (two) times daily as needed. [facility] Diclofenac Sodium 1 % gel 01-02 00:00: 00 Yes 1{appli cator} Apply 1 Applicator to area(s) as needed. [facility] cetirizine 10 mg tablet 01-02 00:00: 00 09-27 00:00 :00 No 10mg Take 10 mg by mouth daily. [facility] fluticasone propionate 50 mcg/actuati on nasal spray 12-05 00:00: 00 09-27 00:00 :00 No 2{spray } Use 2 Sprays in each nostril daily. [facility] Acyclovir 5 % Acyclovir 5 % 0 3-02 00:00: 00 No 6xD Acyclovir 5 % Acyclovir 5 % Acyclovir 5 % 0 3-02 00:00: 00 No 6xD Acyclovir 5 [...] % Cipro 500 MG Cipro 500 MG 2020-08 1-19 00:00: 00 07-06 00:00 :00 No 1{table t} BID Cipro 500 MG valACYclovi r HCl 500 MG valACYclovi r HCl 500 MG 2020-08 0-25 00:00: 00 06-25 00:00 :00 No 1{table t} QD valACYclov ir HCl 500 MG valACYclovi r HCl 500 MG valACYclovi r HCl 500 MG 2020-08 0- 00:00: 00 06-25 00:00 :00 No 1{table t} QD Bactrim DS 800-160 MG Bactrim DS 800-160 MG 2020-08 0-25 00:00: 00 06-11 00:00 :00 No 1{table t} BID Bactrim DS 800-160 MG Estrace 0.1 MG/GM Estrace 0.1 MG/GM 2020-0 04-13 00:00: 00 No Estrace 0.1 MG/GM Estrace 0.1 MG/GM Estrace 0.1 MG/GM 2020-0 04-13 00:00: 00 No Estrace 0.1 MG/GM Estrace 0.1 MG/GM Estrace 0.1 MG/GM 2020-0 - 00:00: 00 No Estrace 0.1 MG/GM Estrace 0.1 MG/GM Estrace 0.1 MG/GM 2020-0 04-13 00:00: 00 No Estrace 0.1 MG/GM Estrace 0.1 MG/GM Estrace 0.1 MG/GM 2020-0 - 00:00: 00 No Estrace 0.1 MG/GM Estrace [...] No Estrace 0.1 MG/GM Estrace 0.1 MG/GM 1-0 [...] 04-13 00:00: 00 No Estrace 0.1 MG/GM estradioL (ESTRACE) 0.01 % (0.1 mg/gram) vaginal cream 04-13 00:00: 00 09-27 00:00 :00 No 2 gram per vaginal [facility] Bactrim DS 800-160 MG Bactrim DS 800-160 MG 04-13 00:00: 00 04-23 00:00 :00 No 1{table t} BID Bactrim DS 800-160 MG Lancets - Lancets - 2018-0 - 00:00: 00 No Lancets - Lancets - Lancets - 0 11-07 00:00: 00 No Lancets - Lancets - Lancets - 2018-0 11-07 00:00: 00 No Lancets - Lancets - Lancets - 0 11-07 00:00: 00 No Lancets - Lancets - Lancets - 0 11-07 00:00: 00 No Lancets - Lancets - Lancets - 0 11-07 00:00: 00 No Lancets - Blood Glucose Test Strip Blood Glucose Test Strip 0 11-07 00:00: 00 No 1{table t} QD Blood Glucose Test Strip Lancets - Lancets - 0 11-07 00:00: 00 No Lancets - Blood Glucose Monitor Blood Glucose Monitor 11-07 00:00: 00 No Blood Glucose Monitor Lancets - Lancets - 0 11-07 00:00: 00 No Lancets - Lancets - Lancets - 0 11-07 00:00: 00 No Lancets - Blood Glucose Monitor Blood Glucose Monitor 11-07 00:00: 00 No Lancets - Lancets - 0 11-07 00:00: 00 No Lancets - Lancets - 0 11-07 00:00: 00 No Lancets - Blood Glucose Monitor Blood Glucose Monitor 11-07 00:00: 00 No Blood Glucose Monitor Lancets - Lancets - 0 11-07 00:00: 00 No Lancets - Lancets - Lancets - 0 11-07 00:00: 00 No Lancets - Lancets - Lancets - 0 11-07 00:00: 00 No Lancets - Lancets - Lancets - 0 11-07 00:00: 00 No Lancets - Blood Glucose Monitor Blood Glucose Monitor 0 11-07 00:00: 00 No Blood Glucose Monitor Lancets - Lancets - 0 11-07 00:00: 00 No Lancets - Lancets - Lancets - 0 11-07 00:00: 00 No Lancets - Lancets - Lancets - 0 11-07 00:00: 00 No Lancets - Lancets - Lancets - 0 11-07 00:00: 00 No Lancets - [place] 32G X 4 MM [place] 32G X 4 MM 0 08-29 00:00: 00 No [place] 32G X 4 MM [place] 32G X 4 MM [place] 32G X 4 MM 2018-0 08-29 00:00: 00 No [place] 32G X 4 MM [place] 32G X 4 MM [place] 32G X 4 MM 2018-0 08-29 00:00: 00 No [place] 32G X 4 MM [place] 32G X 4 MM [place] 32G X 4 MM 2018-0 08-29 00:00: 00 No [place] 32G X 4 MM [place] 32G X 4 MM [place] 32G X 4 MM 2018-0 08-29 00:00: 00 No [place] 32G X 4 MM [place] 32G X 4 MM [place] 32G X 4 MM 2018-0 08-29 00:00: 00 No [place] 32G X 4 MM [place] 32G X 4 MM [place] 32G X 4 MM 2018-0 08-29 00:00: 00 No [place] 32G X 4 MM [place] 32G X 4 MM [place] 32G X 4 MM 2018-0 08-29 00:00: 00 No [place] 32G X 4 MM [place] 32G X 4 MM [place] 32G X 4 MM 2018-0 08-29 00:00: 00 No [place] 32G X 4 MM [place] 32G X 4 MM [place] 32G X 4 MM 2018-0 08-29 00:00: 00 No [place] 32G X 4 MM [place] 32G X 4 MM 2018-0 08-29 00:00: 00 No [place] 32G X 4 MM [place] 32G X 4 MM [place] 32G X 4 MM 2018-0 08-29 00:00: 00 No [place] 32G X 4 MM [place] 32G X 4 MM [place] 32G X 4 MM 2018-0 08-29 00:00: 00 No [place] 32G X 4 MM [place] 32G X 4 MM [place] 32G X 4 MM 2018-0 08-29 00:00: 00 No [place] 32G X 4 MM [place] 32G X 4 MM [place] 32G X 4 MM 2018-0 08-29 00:00: 00 No [place] 32G X 4 MM [place] 32G X 4 MM [place] 32G X 4 MM 2018-0 08-29 00:00: 00 No [place] 32G X 4 MM [place] 32G X 4 MM [place] 32G X 4 MM 08-29 00:00: 00 No [place] 32G X 4 MM metoprolol tartrate 25 mg tablet 10-16 00:00: 00 09-27 00:00 :00 No [id number] 12.5mg Take 0.5 tablets by mouth 2 (two) times daily. [facility] colchicine (COLCRYS) 0.6 mg tablet 08-13 00:00: 00 09-27 00:00 :00 No .6mg Take 1 tablet by mouth daily. [facility] SUCRALFATE 1 gram tablet 04-02 00:00: 00 09-27 00:00 :00 No [id number] TAKE ONE TABLET BY MOUTH BEFORE MEALS AND AT BEDTIME [facility] Blood-Gluco se Meter (FREESTYLE LITE METER) Kit 01-29 00:00: 00 Yes Use as directed, DX:E11.9 [facility] blood sugar diagnostic (FREESTYLE LITE STRIPS) strip 01-29 00:00: 00 Yes Use as directed, BID, Dx;E11.9 [facility] Blood-Gluco se Meter (FREESTYLE LITE METER) Kit 01-29 00:00: 00 Yes Use as directed, DX:E11.9 [facility] blood sugar diagnostic (FREESTYLE LITE STRIPS) strip 01-29 00:00: 00 Yes Use as directed, BID, Dx;E11.9 [facility] glimepiride 1 mg tablet 01-22 00:00: 00 09-27 00:00 :00 No [id number] 1mg Take 1 tablet by mouth daily with breakfast. [facility] traMADOL (ULTRAM) 50 mg tablet 10-01 00:00: 00 09-27 00:00 :00 No 50mg Take 1 tablet by mouth every 6 (six) hours as needed for Pain (scale 4-6). Davin Bowling PA-C / Eliel Bejarano MD [place]# [id number] [facility]# [id number] x Lic.# [id number] [facility]# [id number] [facility] lisinopril (PRINIVIL,Z ESTRIL) 5 mg tablet 2015-08 00:00: 10-01 00:00 :00 No [id number] 5mg Take 1 tablet by mouth daily. [facility] allopurinol (ZYLOPRIM) 100 mg tablet 2015-08 00:00: 10-01 00:00 :00 No [id number] 200mg Take 2 tablets by mouth daily. [facility] lovastatin (MEVACOR) 20 mg tablet 2015-08 00:00: 00 09-27 00:00 :00 No [id number] 40mg Take 2 tablets by mouth at bedtime. [facility] nitroglycer in (NITROSTAT) 0.4 mg sublingual tablet 03-08 00:00: [address] 1 tablet under the tongue every 5 (five) minutes as needed for Chest pain. [facility] acetaminoph en-codeine (TYLENOL #3) 300-30 mg tablet 01-10 00:00: 00 09-27 00:00 :00 No 1{tbl} Take 1 tablet by mouth at bedtime. [facility] chlorhexidi ne (PERIDEX) 0.12 % mouthwash 12-26 00:00: 00 09-27 00:00 :00 No [id number] 15mL Swish and spit out 15 mL 2 (two) times daily. [facility] albuterol (VENTOLIN HFA) 90 mcg/actuati on inhaler 2014-08 00:00: 00 09-27 00:00 :00 No 2{puff} Inhale 2 Puffs every 6 (six) hours as needed for Wheezing or Shortness of Breath. [facility] Albuterol Sulfate HFA 108 (90 Base) MCG/ACT Albuterol Sulfate HFA 108 (90 Base) MCG/ACT No 2{puffs _as_nee ded} QID Lantus SoloStar 100 UNIT/ML Lantus SoloStar 100 UNIT/ML No QD Flonase 50 MCG/ACT Flonase 50 MCG/ACT No 2{spray _in_eac h_nostr il} QD Flonase 50 MCG/ACT Januvia 100 MG Januvia 100 MG No 1{table t} QD Januvia 100 MG Glimepiride 1 MG Glimepiride 1 MG No 1{table t} QD Glimepirid e 1 MG Fluticasone Propionate 50 MCG/ACT Fluticasone Propionate 50 MCG/ACT No Fluticason e Propionate 50 MCG/ACT Albuterol Sulfate HFA 108 (90 Base) MCG/ACT Albuterol Sulfate HFA 108 (90 Base) MCG/ACT No 2{puffs _as_nee ded} QID Albuterol Sulfate HFA 108 (90 Base) MCG/ACT Lisinopril 5 MG Lisinopril 5 MG No [...] No 1{table t} QD Januvia 100 MG Famotidine 20 MG Famotidine 20 MG No 1{table t} Famotidine 20 MG Lovastatin 20 mg Lovastatin 20 mg No QD Lovastatin 20 mg Sucralfate 1 GM Sucralfate 1 GM No 1{table t_as_ne eded} Sucralfate 1 GM Chlorhexidi ne Gluconate 0.12 [...] Test Strip No Blood Glucose Test Strip Lovastatin 20 mg Lovastatin 20 mg No QD Lovastatin 20 mg Januvia 100 MG Januvia 100 MG No 1{table t} QD Januvia 100 MG Cetirizine HCl 10 MG Cetirizine HCl 10 MG No 1{table t} Cetirizine HCl 10 MG Bactrim DS 800-160 MG Bactrim DS 800-160 MG No 1{table t} BID Bactrim DS 800-160 MG Famotidine 20 MG Famotidine 20 MG [...] Test Strip No Blood Glucose Test Strip Januvia 100 MG Januvia 100 MG No 1{table t} QD Januvia 100 MG Cetirizine HCl 10 MG Cetirizine HCl 10 MG No 1{table t} Cetirizine HCl 10 MG Bactrim DS 800-160 MG Bactrim DS 800-160 MG No 1{table t} BID Bactrim DS 800-160 MG Famotidine 20 MG Famotidine 20 MG No 1{table t} Famotidine 20 MG Lantus SoloStar 100 UNIT/ML Lantus SoloStar 100 UNIT/ML No QD Lantus SoloStar 100 UNIT/ML Lisinopril 5 MG Lisinopril 5 MG No 1{table t} QD Lisinopril 5 MG Januvia 100 MG Januvia 100 MG No 1{table t} QD Januvia 100 MG Bactrim DS 800-160 MG Bactrim DS [...] UNIT/ML No QD Lantus SoloStar 100 UNIT/ML Januvia 100 MG Januvia 100 MG No 1{table t} QD Januvia 100 MG Flonase 50 MCG/ACT Flonase 50 MCG/ACT [...] Hollie Millender 45 units [facility] Aspir-81 81 MG Aspir-81 81 MG No 1{table t} QD Aspir-81 81 MG Cetirizine HCl 10 MG Cetirizine HCl 10 MG No 1{table t} Cetirizine HCl 10 MG Sucralfate 1 GM Sucralfate 1 GM No Sucralfate 1 GM Bactrim DS 800-160 MG Bactrim DS 800-160 MG No 1{table t} BID Bactrim DS 800-160 MG Lantus SoloStar 100 UNIT/ML Lantus SoloStar 100 UNIT/ML No QD Lantus SoloStar 100 UNIT/ML Chlorhexidi ne Gluconate 0.12 % Chlorhexidi ne Gluconate 0.12 % No Chlorhexid ine Gluconate 0.12 % Fluticasone Propionate 50 MCG/ACT Fluticasone Propionate 50 MCG/ACT No Fluticason e Propionate 50 MCG/ACT Januvia 100 MG Januvia 100 MG No 1{table t} QD Januvia 100 MG Atorvastati n Calcium 40 MG Atorvastati n Calcium 40 MG No 1{table t} QD Atorvastat in Calcium 40 MG Glimepiride 1 MG Glimepiride 1 MG No 1{table t} QD Glimepirid e 1 MG Flonase 50 MCG/ACT Flonase 50 MCG/ACT No 2{spray _in_eac h_nostr il} QD Flonase 50 MCG/ACT Famotidine 20 MG Famotidine 20 MG No 1{table t} Famotidine 20 MG Albuterol Sulfate HFA 108 (90 Base) MCG/ACT Albuterol Sulfate HFA 108 (90 Base) MCG/ACT No 2{puffs _as_nee ded} QID Albuterol Sulfate HFA 108 (90 Base) MCG/ACT Lisinopril 5 MG Lisinopril 5 MG No [...] No 1{table t} QD Aspir-81 81 MG Tradjenta 5 MG Tradjenta 5 MG [...] No 1{table t} QD Aspir-81 81 MG Tradjenta 5 MG Tradjenta 5 MG [...] 1{table t} QD Glimepirid e 1 MG Tradjenta 5 MG Tradjenta 5 MG [...] MG No 1{table t} Famotidine 20 MG Atorvastati n Calcium 40 MG Atorvastati n Calcium 40 MG No 1{table t} QD Atorvastat in Calcium 40 MG Lantus SoloStar 100 UNIT/ML Lantus SoloStar 100 UNIT/ML No QD Lantus SoloStar 100 UNIT/ML Aspir-81 81 MG Aspir-81 81 MG No 1{table t} QD Aspir-81 81 MG Flonase 50 MCG/ACT Flonase 50 MCG/ACT No 2{spray _in_eac h_nostr il} QD Flonase 50 MCG/ACT Glimepiride 1 MG Glimepiride 1 [...] % No TID Diclofenac Sodium 1 % Atorvastati n Calcium 40 MG Atorvastati n Calcium 40 MG No 1{table t} QD Atorvastat in Calcium 40 MG Lantus SoloStar 100 UNIT/ML Lantus SoloStar 100 UNIT/ML No QD Lantus SoloStar 100 UNIT/ML Aspir-81 81 MG Aspir-81 81 MG No 1{table t} QD Aspir-81 81 MG Flonase 50 MCG/ACT Flonase 50 MCG/ACT No 2{spray _in_eac h_nostr il} QD Flonase 50 MCG/ACT Glimepiride 1 MG Glimepiride 1 [...] 1{table t} BID Bactrim DS 800-160 MG Famotidine 20 MG Famotidine 20 MG [...] % No TID Diclofenac Sodium 1 % Atorvastati n Calcium 40 MG Atorvastati n Calcium 40 MG No 1{table t} QD Atorvastat in Calcium 40 MG Lantus SoloStar 100 UNIT/ML Lantus SoloStar 100 UNIT/ML No QD Lantus SoloStar 100 UNIT/ML Flonase 50 MCG/ACT Flonase 50 MCG/ACT No 2{spray _in_eac h_nostr il} QD Flonase 50 MCG/ACT Glimepiride 1 MG Glimepiride 1 [...] 1{table t} BID Bactrim DS 800-160 MG Famotidine 20 MG Famotidine 20 MG No Famotidine 20 MG Januvia 100 MG Januvia 100 MG No 1{table t} QD Januvia 100 MG Sucralfate 1 GM Sucralfate 1 GM No Sucralfate 1 GM Chlorhexidi ne Gluconate 0.12 % Chlorhexidi ne Gluconate 0.12 % No Chlorhexid ine Gluconate 0.12 % Lisinopril 5 MG Lisinopril 5 MG No 1{table t} QD Lisinopril 5 MG Fluticasone Propionate 50 MCG/ACT Fluticasone Propionate 50 MCG/ACT No Fluticason e Propionate 50 MCG/ACT Diclofenac Sodium 1 % Diclofenac Sodium 1 % No TID Diclofenac Sodium 1 % Atorvastati n Calcium 40 MG Atorvastati n Calcium 40 MG No 1{table t} QD Atorvastat in Calcium 40 MG Cetirizine HCl 10 MG Cetirizine HCl 10 MG No 1{table t} Cetirizine HCl 10 MG Albuterol Sulfate HFA 108 (90 [...] No 1{table t_as_ne eded} Sucralfate 1 GM Lantus SoloStar 100 UNIT/ML Lantus SoloStar 100 [...] 20 mg No QD Lovastatin 20 mg Blood Glucose Test Strip Blood Glucose Test [...] MG No 1{table t} Famotidine 20 MG Lovastatin 20 mg Lovastatin 20 mg [...] No 1{table t_as_ne eded} Sucralfate 1 GM Chlorhexidi ne Gluconate 0.12 % Chlorhexidi ne Gluconate 0.12 % No EQ Allergy Relief (Cetirizine ) 10 MG EQ Allergy Relief (Cetirizine ) 10 MG No Lisinopril 5 MG Lisinopril 5 MG No 1{table t} QD Famotidine 20 MG Famotidine 20 MG No 1{table t} Allopurinol 100 MG Allopurinol 100 MG 05-07 [...] HIGH DOSE OVER 65 2021-06-02 15:49:00 Completed [facility] [place] FLUZONE HIGH DOSE OVER 65 FLUZONE HIGH DOSE OVER 65 2021-06-02 15:49:00 Completed [facility] [facility] [place] FLUZONE HIGH DOSE OVER 65 FLUZONE HIGH DOSE OVER 65 2021-06-02 15:49:00 [facility]pleted [facility] [place] FLUZONE HIGH DOSE OVER 65 FLUZONE HIGH DOSE OVER 65 2021-06-02 15:49:00 Completed [facility] [place] FLUZONE HIGH DOSE OVER 65 FLUZONE HIGH DOSE OVER 65 2021-06-02 15:49:00 Completed [facility] [place] FLUZONE HIGH DOSE OVER 65 FLUZONE HIGH DOSE OVER 65 2021-06-02 15:49:00 Completed [facility] [place] FLUZONE HIGH DOSE OVER 65 FLUZONE HIGH DOSE OVER 65 2021-06-02 15:49:00 Completed [facility] [place] FLUZONE HIGH DOSE OVER 65 FLUZONE HIGH DOSE OVER 65 2021-06-02 15:49:00 Completed [facility] [place] FLUZONE HIGH DOSE OVER 65 FLUZONE HIGH DOSE OVER 65 2021-06-02 15:49:00 Completed [facility] [place] FLUZONE HIGH DOSE OVER 65 FLUZONE HIGH DOSE OVER 65 2021-06-02 15:49:00 Completed [facility] [place] FLUZONE HIGH DOSE OVER 65 FLUZONE HIGH DOSE OVER 65 2021-06-02 15:49:00 Completed [facility] [place] FLUZONE HIGH DOSE OVER 65 FLUZONE HIGH DOSE OVER 65 2021-06-02 15:49:00 Completed [facility] [place] FLUZONE HIGH DOSE OVER 65 FLUZONE HIGH DOSE OVER 65 2021-06-02 15:49:00 Completed [facility] [place] Moderna COVID-19 Vaccine Moderna COVID-19 Vaccine 2021-01-18 15:42:00 Completed [facility] [place] Moderna COVID-19 Vaccine Moderna COVID-19 Vaccine 2021-01-18 15:42:00 Completed [facility] [place] Moderna COVID-19 Vaccine Moderna COVID-19 Vaccine 2021-01-18 15:42:00 Completed [facility] [place] Moderna COVID-19 Vaccine Moderna COVID-19 Vaccine 2021-01-18 15:42:00 Completed [facility] [place] Moderna COVID-19 Vaccine Moderna COVID-19 Vaccine 2021-01-18 15:42:00 Completed [facility] Moderna COVID-19 Vaccine Moderna COVID-19 Vaccine 2021-01-18 15:42:00 Completed [facility] [place] Moderna COVID-19 Vaccine Moderna COVID-19 Vaccine 2021-01-18 15:42:00 Completed [facility] [place] Moderna COVID-19 Vaccine Moderna COVID-19 Vaccine 2021-01-18 15:42:00 Completed [facility] [place] Moderna COVID-19 Vaccine Moderna COVID-19 Vaccine 2021-01-18 15:42:00 Completed [facility] [place] Moderna COVID-19 Vaccine Moderna COVID-19 Vaccine 2021-01-18 15:42:00 Completed [facility] [place] Moderna COVID-19 Vaccine Moderna COVID-19 Vaccine 2021-01-18 15:42:00 Completed [facility] [place] Moderna COVID-19 Vaccine Moderna COVID-19 Vaccine 2021-01-18 15:42:00 Completed [facility] [place] Moderna COVID-19 Vaccine Moderna COVID-19 Vaccine 2020-12-30 08:59:00 Completed [facility] [place] Moderna COVID-19 Vaccine Moderna COVID-19 Vaccine 2020-12-30 08:59:00 Completed [facility] [place] Moderna COVID-19 Vaccine Moderna COVID-19 Vaccine 2020-12-30 08:59:00 Completed [facility] [place] Moderna COVID-19 Vaccine Moderna COVID-19 Vaccine 2020-12-30 08:59:00 Completed [facility] [place] Moderna COVID-19 Vaccine Moderna COVID-19 Vaccine 2020-12-30 08:59:00 Completed [facility] [place] Moderna COVID-19 Vaccine Moderna COVID-19 Vaccine 2020-12-30 08:59:00 Completed [facility] [place] Moderna COVID-19 Vaccine Moderna COVID-19 Vaccine 2020-12-30 08:59:00 Completed [facility] [place] Moderna COVID-19 Vaccine Moderna COVID-19 Vaccine 2020-12-30 08:59:00 Completed [facility] [place] Moderna COVID-19 Vaccine Moderna COVID-19 Vaccine 2020-12-30 08:59:00 Completed [facility] [place] Moderna COVID-19 Vaccine Moderna COVID-19 Vaccine 2020-12-30 08:59:00 Completed [facility] [place] Moderna COVID-19 Vaccine Moderna COVID-19 Vaccine 2020-12-30 08:59:00 Completed [facility] [place] Moderna COVID-19 Vaccine Moderna COVID-19 Vaccine 2020-12-30 08:59:00 Completed [facility] [place] Moderna COVID-19 Vaccine Moderna COVID-19 Vaccine 2020-12-30 08:59:00 Completed [facility] [place] Moderna COVID-19 Vaccine Moderna COVID-19 Vaccine 2020-12-30 08:59:00 Completed [facility] [place] Moderna COVID-19 Vaccine Moderna COVID-19 Vaccine 2020-12-28 15:42:00 Completed [facility] [place] Moderna COVID-19 Vaccine Moderna COVID-19 Vaccine 2020-12-28 15:42:00 Completed [facility] [place] Influenza Virus Vaccine Quad IM 3+ YRS 2016-05-17 00:00:00 Completed [facility] Influenza Virus Vaccine Quad IM 3+ YRS 2016-05-17 00:00:00 Completed [facility] Influenza Virus Vaccine Quad IM 3+ YRS 2016-05-17 00:00:00 Completed [facility] Influenza Virus Vaccine Quad IM 3+ YRS 2016-05-17 00:00:00 Completed [facility] Influenza Virus Vaccine Quad IM 3+ YRS 2016-05-17 00:00:00 Completed [facility] Influenza Virus Vaccine Quad IM 3+ YRS 2016-05-17 00:00:00 Completed [facility] Influenza Virus Vaccine Quad IM 3+ YRS 2016-05-17 00:00:00 Completed [facility] Influenza Virus Vaccine Quad IM 3+ YRS 2016-05-17 00:00:00 Completed [facility] Influenza Virus Vaccine Quad IM 3+ YRS 2016-05-17 00:00:00 Completed [facility] Influenza Virus Vaccine Quad IM 3+ YRS 2016-05-17 00:00:00 Completed [facility] Influenza Virus Vaccine Quad IM 3+ YRS 2016-05-17 00:00:00 Completed [facility] Influenza Virus Vaccine Quad IM 3+ YRS 2016-05-17 00:00:00 Completed [facility] Influenza Virus Vaccine Quad IM 3+ YRS 2016-05-17 00:00:00 Completed [facility] Influenza Virus Vaccine Quad IM 3+ YRS 2015-05-11 00:00:00 Completed Pneumococcal Polysaccharide, PPSV23 (PNEUMOVAX) 2015-05-11 00:00:00 Completed Influenza Virus Vaccine Quad IM 3+ YRS 2015-05-11 00:00:00 Completed [facility] Pneumococcal Polysaccharide, PPSV23 (PNEUMOVAX) 2015-05-11 00:00:00 Completed [facility] Influenza Virus Vaccine Quad IM 3+ YRS 2015-05-11 00:00:00 Completed [facility] Pneumococcal Polysaccharide, PPSV23 (PNEUMOVAX) 2015-05-11 00:00:00 Completed [facility] Influenza Virus Vaccine Quad IM 3+ YRS 2015-05-11 00:00:00 Completed [facility] Pneumococcal Polysaccharide, PPSV23 (PNEUMOVAX) 2015-05-11 00:00:00 Completed [facility] Influenza Virus Vaccine Quad IM 3+ YRS 2015-05-11 00:00:00 Completed [facility] Pneumococcal Polysaccharide, PPSV23 (PNEUMOVAX) 2015-05-11 00:00:00 Completed [facility] Influenza Virus Vaccine Quad IM 3+ YRS 2015-05-11 00:00:00 Completed [facility] Pneumococcal Polysaccharide, PPSV23 (PNEUMOVAX) 2015-05-11 00:00:00 Completed [facility] Influenza Virus Vaccine Quad IM 3+ YRS 2015-05-11 00:00:00 Completed [facility] Pneumococcal Polysaccharide, PPSV23 (PNEUMOVAX) 2015-05-11 00:00:00 Completed [facility] Influenza Virus Vaccine Quad IM 3+ YRS 2015-05-11 00:00:00 Completed [facility] Pneumococcal Polysaccharide, PPSV23 (PNEUMOVAX) 2015-05-11 00:00:00 Completed [facility] Influenza Virus Vaccine Quad IM 3+ YRS 2015-05-11 00:00:00 Completed [facility] Pneumococcal Polysaccharide, PPSV23 (PNEUMOVAX) 2015-05-11 00:00:00 Completed [facility] Influenza Virus Vaccine Quad IM 3+ YRS 2015-05-11 00:00:00 Completed [facility] Pneumococcal Polysaccharide, PPSV23 (PNEUMOVAX) 2015-05-11 00:00:00 Completed [facility] Influenza Virus Vaccine Quad IM 3+ YRS 2015-05-11 00:00:00 Completed [facility] Pneumococcal Polysaccharide, PPSV23 (PNEUMOVAX) 2015-05-11 00:00:00 Completed [facility] Influenza Virus Vaccine Quad IM 3+ YRS 2015-05-11 00:00:00 Completed [facility] Pneumococcal Polysaccharide, PPSV23 (PNEUMOVAX) 2015-05-11 00:00:00 Completed [facility] Influenza Virus Vaccine Quad IM 3+ YRS 2015-05-11 00:00:00 Completed [facility] Pneumococcal Polysaccharide, PPSV23 (PNEUMOVAX) 2015-05-11 00:00:00 Completed [facility] Zoster(Zostavax)( ingles) 2015-02-11 00:00:00 Completed [facility] Zoster(Zostavax)( ingles) 2015-02-11 00:00:00 Completed [facility] Zoster(Zostavax)( ingles) 2015-02-11 00:00:00 Completed [facility] Zoster(Zostavax)( ingles) 2015-02-11 00:00:00 Completed [facility] Zoster(Zostavax)([facility]) 2015-02-11 00:00:00 Completed [facility] Zoster(Zostavax)([facility]) 2015-02-11 00:00:00 Completed [facility] Zoster(Zostavax)([facility]) 2015-02-11 00:00:00 Completed [facility] Zoster(Zostavax)([facility]) 2015-02-11 00:00:00 Completed [facility] Zoster(Zostavax)([facility]) 2015-02-11 00:00:00 Completed [facility] Zoster(Zostavax)([facility]) 2015-02-11 00:00:00 Completed [facility] Zoster(Zostavax)([facility]) 2015-02-11 00:00:00 Completed [facility] Zoster(Zostavax)([facility]) 2015-02-11 00:00:00 Completed [facility] Zoster(Zostavax)([facility]) 2015-02-11 00:00:00 Completed [facility] Moderna COVID-19 Vaccine Moderna COVID-19 Vaccine Unknown Completed [facility] [place] FLUZONE HIGH DOSE OVER 65 FLUZONE HIGH DOSE OVER 65 Unknown Completed [facility] [place] Vital Signs Vital Name Observation Time Observation Value Comments S ource Systolic blood pressure 2024-10-15 20:27:00 136 mm[Hg] [facility] Diastolic blood pressure 2024-10-15 20:27:00 77 mm[Hg] [facility] Heart rate 2024-10-15 20:15:00 84 /min [facility] Respiratory rate 2024-10-15 20:15:00 16 /min [facility] Body height 2024-10-15 20:15:00 157.5 cm [facility] Body weight 2024-10-15 20:15:00 74.571 kg [facility] BMI 2024-10-15 20:15:00 30.07 kg/m2 [facility] Oxygen saturation in Arterial blood by Pulse oximetry 2024-10-15 20:15:00 98 /min [facility] Systolic blood pressure 2024-10-01 18:06:00 120 mm[Hg] [facility] Diastolic blood pressure 2024-10-01 18:06:00 77 mm[Hg] [facility] Heart rate 2024-10-01 18:06:00 83 /min [facility] Body temperature 2024-10-01 18:06:00 36.67 Seda [facility] Respiratory rate 2024-10-01 18:06:00 16 /min [facility] Oxygen saturation in Arterial blood by Pulse oximetry 2024-10-01 18:06:00 96 /min [facility] Body height 2024-10-01 13:19:00 157.5 cm [facility] Body weight 2024-10-01 13:19:00 74.844 kg [facility] BMI 2024-10-01 13:19:00 30.18 kg/m2 [facility] Systolic blood pressure 2024-10-01 14:25:00 113 mm[Hg] [facility] Diastolic blood pressure 2024-10-01 14:25:00 72 mm[Hg] [facility] Heart rate 2024-10-01 14:25:00 97 [facility] Oxygen saturation in Arterial blood by Pulse oximetry 2024-10-01 14:25:00 95 /min [facility] Respiratory rate 2024-10-01 13:36:00 18 /min [facility] Body height 2024-10-01 13:19:00 157.5 cm [facility] Body weight 2024-10-01 13:19:00 74.844 kg [facility] BMI 2024-10-01 13:19:00 30.18 kg/m2 [facility] Body temperature 2024-10-01 10:44:00 37.06 Seda [facility] Systolic blood pressure 2022-04-09 18:00:00 140 mm[Hg] [facility] Diastolic blood pressure 2022-04-09 18:00:00 82 mm[Hg] [facility] Heart rate 2022-04-09 18:00:00 63 /min [facility] Respiratory rate 2022-04-09 18:00:00 18 /min [facility] Oxygen saturation in Arterial blood by Pulse oximetry 2022-04-09 18:00:00 98 /min [facility] Body temperature 2022-04-09 17:41:00 36.56 Seda [facility] Body weight 2022-04-09 17:41:00 78.472 kg [facility] BMI 2022-04-09 17:41:00 31.63 kg/m2 [facility] height 2022-03-27 09:40:00 63.50 [in_i] Com [facility] weight 2022-03-27 09:40:00 175.0 [lb_av] Co [facility] temperature 2022-03-27 09:40:00 97.3 [degF] Com [facility] bmi 2022-03-27 09:40:00 30.51 kg/m2 [facility] oximetry 2022-03-27 09:40:00 98 % [facility] respiratory rate 2022-03-27 09:40:00 16 /min [facility] [place] blood pressure systolic 2022-03-27 09:40:00 132 mm[Hg] [facility] blood pressure diastolic 2022-03-27 09:40:00 68 mm[Hg] [facility] height 2022-03-14 10:00:00 64.00 [in_i] Com [facility] weight 2022-03-14 10:00:00 174.4 [lb_av] Co [facility] temperature 2022-03-14 10:00:00 97.2 [degF] Com [facility] bmi 2022-03-14 10:00:00 29.93 kg/m2 [facility] oximetry 2022-03-14 10:00:00 96 % [facility] respiratory rate 2022-03-14 10:00:00 16 /min [facility] blood pressure systolic 2022-03-14 10:00:00 136 mm[Hg] [facility] blood pressure diastolic 2022-03-14 10:00:00 79 mm[Hg] [facility] Respiratory rate 2022-03-01 14:42:00 18 /min [facility] Heart rate 2022-03-01 14:41:00 70 /min [facility] Oxygen saturation in Arterial blood by Pulse oximetry 2022-03-01 14:41:00 99 /min [facility] Systolic blood pressure 2022-03-01 14:40:00 152 mm[Hg] [facility] Diastolic blood pressure 2022-03-01 14:40:00 80 mm[Hg] [facility] Body temperature 2022-03-01 14:25:00 36.83 Seda [facility] Body height 2022-02-22 18:55:00 157.5 cm [facility] Body weight 2022-02-22 18:55:00 78.9 kg [facility] BMI 2022-02-22 18:55:00 31.81 kg/m2 [facility] Systolic blood pressure 2022-03-01 12:51:00 161 mm[Hg] [facility] Diastolic blood pressure 2022-03-01 12:51:00 93 mm[Hg] [facility] Heart rate 2022-03-01 12:51:00 75 /min [facility] Body temperature 2022-03-01 12:51:00 36.33 Seda [facility] Respiratory rate 2022-03-01 12:51:00 14 /min [facility] Oxygen saturation in Arterial blood by Pulse oximetry 2022-03-01 12:51:00 98 /min [facility] Body height 2022-02-22 18:55:00 157.5 cm [facility] Body weight 2022-02-22 18:55:00 78.9 kg [facility] BMI 2022-02-22 18:55:00 31.81 kg/m2 [facility] Systolic blood pressure 2022-02-15 14:49:00 164 mm[Hg] [facility] Diastolic blood pressure 2022-02-15 14:49:00 89 mm[Hg] [facility] Heart rate 2022-02-15 14:49:00 70 /min [facility] Respiratory rate 2022-02-15 14:49:00 10 /min [facility] Oxygen saturation in Arterial blood by Pulse oximetry 2022-02-15 14:49:00 99 /min [facility] Body temperature 2022-02-15 12:46:00 36.56 [facility] Body height 2022-02-03 15:18:00 157.5 cm [facility] Body weight 2022-02-03 15:18:00 78.9 kg [facility] BMI 2022-02-03 15:18:00 31.81 kg/m2 [facility] Systolic blood pressure 2022-02-15 12:53:00 160 mm[Hg] [facility] Diastolic blood pressure 2022-02-15 12:53:00 89 mm[Hg] [facility] Heart rate 2022-02-15 12:46:00 80 /min [facility] Body temperature 2022-02-15 12:46:00 36.56 Seda [facility] Respiratory rate 2022-02-15 12:46:00 15 /min [facility] Oxygen saturation in Arterial blood by Pulse oximetry 2022-02-15 12:46:00 99 /min [facility] Body height 2022-02-03 15:18:00 157.5 cm [facility] Body weight 2022-02-03 15:18:00 78.9 kg [facility] BMI 2022-02-03 15:18:00 31.81 kg/m2 [facility] height 2022-01-02 09:00:00 64.00 [in_i] Com [facility] weight 2022-01-02 09:00:00 172.2 [lb_av] [facility] temperature 2022-01-02 09:00:00 97.2 [degF] Com [facility] bmi 2022-01-02 09:00:00 29.55 kg/m2 [facility] oximetry 2022-01-02 09:00:00 98 % [facility] respiratory rate 2022-01-02 09:00:00 16 /min [facility] [place] blood pressure systolic 2022-01-02 09:00:00 117 mm[Hg] [facility] blood pressure diastolic 2022-01-02 09:00:00 72 mm[Hg] [facility] height 2021-11-08 13:00:00 64.00 [in_i] Com [facility] weight 2021-11-08 13:00:00 170.6 [lb_av] [facility] temperature 2021-11-08 13:00:00 97.7 [degF] Com [facility] bmi 2021-11-08 13:00:00 29.28 kg/m2 [facility] oximetry 2021-11-08 13:00:00 98 % [facility] respiratory rate 2021-11-08 13:00:00 18 /min [facility] blood pressure systolic 2021-11-08 13:00:00 139 mm[Hg] [facility] blood pressure diastolic 2021-11-08 13:00:00 80 mm[Hg] [facility] height 2021-10-07 14:20:00 64.00 [in_i] Com [facility] weight 2021-10-07 14:20:00 170.2 [lb_av] [facility] temperature 2021-10-07 14:20:00 97.3 [degF] Com [facility] bmi 2021-10-07 14:20:00 29.21 kg/m2 [facility] oximetry 2021-10-07 14:20:00 100 % [facility] respiratory rate 2021-10-07 14:20:00 16 /min [facility] blood pressure systolic 2021-10-07 14:20:00 121 mm[Hg] [facility] blood pressure diastolic 2021-10-07 14:20:00 86 mm[Hg] Common [facility] height 2021-10-07 14:00:00 64.00 [in_i] Com [facility] weight 2021-10-07 14:00:00 170.2 [lb_av] Co [facility] temperature 2021-10-07 14:00:00 97.3 [degF] Com [facility] bmi 2021-10-07 14:00:00 29.21 kg/m2 [facility] oximetry 2021-10-07 14:00:00 100 % [facility] respiratory rate 2021-10-07 14:00:00 16 /min [facility] [place] blood pressure systolic 2021-10-07 14:00:00 121 mm[Hg] [facility] blood pressure diastolic 2021-10-07 14:00:00 86 mm[Hg] Common [facility] height 2021-07-14 13:00:00 64.00 [in_i] Com [facility] weight 2021-07-14 13:00:00 170.4 [lb_av] Co [facility] temperature 2021-07-14 13:00:00 98.0 [degF] Com [facility] bmi 2021-07-14 13:00:00 29.25 kg/m2 [facility] oximetry 2021-07-14 13:00:00 97 % [facility] respiratory rate 2021-07-14 13:00:00 17 /min [facility] [place] blood pressure systolic 2021-07-14 13:00:00 139 mm[Hg] [facility] blood pressure diastolic 2021-07-14 13:00:00 79 mm[Hg] [facility] height 2021-06-06 16:20:00 64.00 [in_i] Com [facility] weight 2021-06-06 16:20:00 173.0 [lb_av] Co [facility] temperature 2021-06-06 16:20:00 97.2 [degF] Com [facility] bmi 2021-06-06 16:20:00 29.69 kg/m2 [facility] oximetry 2021-06-06 16:20:00 97 % [facility] respiratory rate 2021-06-06 16:20:00 18 /min [facility] [place] blood pressure systolic 2021-06-06 16:20:00 120 mm[Hg] [facility] blood pressure diastolic 2021-06-06 16:20:00 85 mm[Hg] Common [facility] height 2021-06-02 15:40:00 64.00 [in_i] Com [facility] weight 2021-06-02 15:40:00 170.8 [lb_av] Co [facility] temperature 2021-06-02 15:40:00 97.1 [degF] Com [facility] bmi 2021-06-02 15:40:00 29.31 kg/m2 [facility] oximetry 2021-06-02 15:40:00 96 % [facility] respiratory rate 2021-06-02 15:40:00 18 /min [facility] blood pressure systolic 2021-06-02 15:40:00 124 mm[Hg] [facility] blood pressure diastolic 2021-06-02 15:40:00 80 mm[Hg] Common [facility] height 2021-04-13 11:00:00 64.00 [in_i] Com [facility] weight 2021-04-13 11:00:00 174 [lb_av] Comm [facility] bmi 2021-04-13 11:00:00 29.86 kg/m2 [facility] Procedures Procedure Date / Time Performed Performing Clinician Source POCT GLUCOSE (AUTOMATED) 2024-10-01 18:43:00 Keith Baker [facility] POCT GLUCOSE (AUTOMATED) 2024-10-01 18:43:00 Keith Baker [facility] ACTIVATED PARTIAL THRMPLAS EARLENE 2024-10-01 16:36:00 [facility] ACTIVATED PARTIAL THRMPLAS EARLENE 2024-10-01 16:36:00 [facility] ACTIVATED PARTIAL THRMPLAS EARLENE 2024-10-01 15:44:00 [facility] ACTIVATED PARTIAL THRMPLAS EARLENE 2024-10-01 15:44:00 [facility] POCT GLUCOSE (AUTOMATED) 2024-10-01 15:15:00 Keith Baker [facility] POCT GLUCOSE (AUTOMATED) 2024-10-01 15:15:00 Keith Baker [facility] CATH PROCEDURE LOG 2024-10-01 14:26:23 Keith Baker [facility] CATH PROCEDURE LOG 2024-10-01 14:26:23 Keith Baker [facility] CARDIAC CATHETERIZATION 2024-10-01 14:00:00 Keith aBker [facility] CARDIAC CATHETERIZATION 2024-10-01 14:00:00 Keith SamuelHever [facility] MAGNESIUM 2024-10-01 10:31:00 Giuliano Olsen [facility] BASIC METABOLIC PANEL (NA, K , CL, CO2, GLUCOSE, BUN, CREATININE, CA) 2024-10-01 10:31:00 [facility]24-10-01 10:31:00 Giuliano Olsen [facility] BASIC METABOLIC PANEL (NA, K , CL, CO2, GLUCOSE, BUN, CREATININE, CA) 2024-10-01 10:31:00 Giuliano Olsen [facility] CBC WITH DIFF 2024-10-01 07:47:00 Pretty Giuliano [facility] ACTIVATED PARTIAL THRMPLAS EARLENE 2024-10-01 07:47:00 Radha [facility] CBC WITH DIFF 2024-10-01 07:47:00 Giuliano Olsen [facility] ACTIVATED PARTIAL THRMPLAS EARLENE 2024-10-01 07:47:00 Radha [facility] POCT GLUCOSE (AUTOMATED) 2024-10-01 02:20:00 Nichole [facility] POCT GLUCOSE (AUTOMATED) 2024-10-01 02:20:00 [facility] ACTIVATED PARTIAL THRMPLAS EARLENE 2024-09-30 23:57:00 Radha [facility] ACTIVATED PARTIAL THRMPLAS EARLENE 2024-09-30 23:57:00 Radha [facility] POCT GLUCOSE (AUTOMATED) 2024-09-30 23:17[facility] 2024-09-30 23:17:00 Nichole [facility] POCT GLUCOSE (AUTOMATED) 2024-09-30 19:22:00 [facility]ole [facility] POCT GLUCOSE (AUTOMATED) 2024-09-30 19:22:00 Nichole [facility] ACTIVATED PARTIAL THRMPLAS EARLENE 2024-09-30 14:29:00 Radha [facility] ACTIVATED PARTIAL THRMPLAS EARLENE 2024-09-30 14:29:00 Radha [facility] POCT GLUCOSE (AUTOMATED) 2024-09-30 14:10:00 Nichole [facility] POCT GLUCOSE (AUTOMATED) 2024-09-30 14:10:00 Nichole [facility] BASIC METABOLIC PANEL (NA, K , CL, CO2, GLUCOSE, BUN, CREATININE, CA) 2024-09-30 11:35:00 Pretty Giuliano [facility] CBC WITH DIFF 2024-09-30 11:35:00 Pretty Giuliano [facility] MAGNESIUM 2024-09-30 11:35:00 Pretty [facility] BASIC METABOLIC PANEL (NA, K , CL, CO2, GLUCOSE, BUN, CREATININE, CA) 2024-09-30 11:35:00 Giuliano Olsen [facility] CBC WITH DIFF 2024-09-30 11:35:00 Giuliano Olsen [facility] MAGNESIUM 2024-09-30 11:35:00 Giuliano Olsen [facility] ACTIVATED PARTIAL THRMPLAS EARLENE 2024-09-30 02:18:00 Radha [facility] ACTIVATED PARTIAL THRMPLAS EARLENE 2024-09-30 02:18:00 Radha [facility] POCT GLUCOSE (AUTOMATED) 2024-09-30 02:17:00 Nichole [facility] POCT GLUCOSE (AUTOMATED) 2024-09-30 02:17:00 Nichole [facility] POCT GLUCOSE (AUTOMATED) 2024-09-29 22:36:00 Nichole [facility] POCT GLUCOSE (AUTOMATED) 2024-09-29 22:36:00 Nichole [facility] CT HEART W CONTRAST STRUCTURES AND CARDIAC FUNCTION (NON CORONARY) 2024-09-29 20:43:26 Sanya Johnson [facility] CT HEART W CONTRAST STRUCTURES AND CARDIAC FUNCTION (NON CORONARY) 2024-09-29 20:43:26 Sanya Johnson [facility] POCT GLUCOSE (AUTOMATED) 2024-09-29 19:38:00 Nichole [facility] POCT GLUCOSE (AUTOMATED) 2024-09-29 19:38:00 [facility] THRMPLAS EARLENE 2024-09-29 18:39:00 Radha [facility] ACTIVATED PARTIAL THRMPLAS EARLENE 2024-09-29 18:39:00 Radha [facility] MR BRAIN WO CONTRAST 2024-09-29 17:50:58 Pretty Giuliano [facility] MR BRAIN WO CONTRAST 2024-09-29 17:50:58 Pretty Giuliano [facility] POCT GLUCOSE (AUTOMATED) 2024-09-29 15:42:00 Nichole [facility] POCT GLUCOSE (AUTOMATED) 2024-09-29 15:42:00 Nichole [facility] HB ECG ROUTINE & RHYTHM STRIP 2024-09-29 13:59:21 Radha [facility] HB ECG ROUTINE & RHYTHM STRIP 2024-09-29 13:59:21 Jatin [facility] BASIC METABOLIC PANEL (NA, K , CL, CO2, GLUCOSE, BUN, CREATININE, CA) 2024-09-29 11:15:00 Vu, [facility] CBC WITH DIFF 2024-09-29 11:15:00 Vu, [facility] MAGNESIUM 2024-09-29 11:15:00 Vu, [facility] BASIC METABOLIC PANEL (NA, K , CL, CO2, GLUCOSE, BUN, CREATININE, CA) 2024-09-29 11:15:00 Vu, [facility] CBC WITH DIFF 2024-09-29 11:15:00 Vu [facility] MAGNESIUM 2024-09-29 11:15:00 Vu, [facility] POCT GLUCOSE (AUTOMATED) 2024-09-29 02:48:00 Rosalva Oh [facility] POCT GLUCOSE (AUTOMATED) 2024-09-29 02:48:00 [facility] POCT GLUCOSE (AUTOMATED) 2024-09-28 23:36:00 Rosalva Oh [facility] POCT GLUCOSE (AUTOMATED) 2024-09-28 23:36:00 [facility]TTE) COMPLETE W/ CONTRAST 2024-09-28 22:30:48 Radha [facility] TRANSTHORACIC ECHO (TTE) COMPLETE W/ CONTRAST 2024-09-28 22:30:[address] [facility] POCT GLUCOSE (AUTOMATED) 2024-09-28 21:43:00 Rosalva Oh [facility] POCT GLUCOSE (AUTOMATED) 2024-09-28 21:43:00 [facility] CT STROKE ANGIOGRAM HEAD 2024-09-28 15:26:51 Olivia, [facility] CT STROKE ANGIOGRAM NECK 2024-09-28 15:26:51 Olivia, [facility] CT STROKE ANGIOGRAM HEAD 2024-09-28 15:26:51 Olivia, [facility] CT STROKE ANGIOGRAM NECK 2024-09-28 15:26:51 Olivia, [facility] CT STROKE HEAD WO CONTRAST 2024-09-28 15:26:13 Olivia, [facility] CT STROKE HEAD WO CONTRAST 2024-09-28 15:26:13 Olivia, [facility] TROPONIN I 2024-09-28 15:09:00 Terri [facility] BASIC METABOLIC PANEL (NA, K , CL, CO2, GLUCOSE, BUN, CREATININE, CA) 2024-09-28 15:09:00 Terri [facility] Bab[facility] CBC WITHOUT DIFF 2024-09-28 15:09:00 Elmelyssa [facility] PROTHROMBIN TIME / INR 2024-09-28 15:09:00 Elnaeem [facility] ACTIVATED PARTIAL THRMPLAS EARLENE 2024-09-28 15:09:00 Elnaeem [facility] EXTRA TUBE SST 2024-09-28 15:09:00 [facility] 2024-09-28 15:09:00 Ellarry [facility] BASIC METABOLIC PANEL (NA, K , CL, CO2, GLUCOSE, BUN, CREATININE, CA) 2024-09-28 15:09:00 melyssa [facility] CBC WITHOUT DIFF 2024-09-28 15:09:00 Ellarry [facility] PROTHROMBIN TIME / INR 2024-09-28 15:09:00 Elmelyssa [facility] ACTIVATED PARTIAL THRMPLAS EARLENE 2024-09-28 15:09:00 Elmelyssa [facility] EXTRA TUBE SST 2024-09-28 15:09:00 [facility] PO[facility]UCOSE (AUTOMATED) 2024-09-28 14:51:00 Rosalva Oh [facility] POCT GLUCOSE (AUTOMATED) 2024-09-28 14:51:00 Rosalva Oh [facility] TROPONIN I 2024-09-28 12:05:00 Radha [facility] BASIC METABOLIC PANEL (NA, K , CL, CO2, GLUCOSE, BUN, CREATININE, CA) 2024-09-28 12:05:00 Radha [facility] CBC WITH DIFF 2024-09-28 12:05:00 Radha [facility] ACTIVATED PARTIAL THRMPLAS EARLENE 2024-09-28 12:05:00 Radha [facility] MAGNESIUM 2024-09-28 12:05:00 Radha [facility] TROPONIN I 2024-09-28 12:05:00 Radha [facility] BASIC METABOLIC PANEL (NA, K , CL, CO2, GLUCOSE, BUN, CREATININE, CA) 2024-09-28 12:05:00 Radha [facility] CBC WITH DIFF 2024-09-28 12:05:00 Radha [facility] ACTIVATED PARTIAL THRMPLAS EARLENE 2024-09-28 12:05:00 Radha [facility] MAGNESIUM 2024-09-28 12:05:00 Radha [facility] MICROALBUMIN URINE 2024-09-28 09:08:00 Jatin [facility] CREATININE, URINE RANDOM 2024-09-28 09:08:00 Jatin [facility] TOTAL PROTEIN, URINE RANDOM 2024-09-28 09:08:00 Jatin [facility] MICROALBUMIN URINE 2024-09-28 09:08:00 Radha [facility] CREATININE, URINE RANDOM 2024-09-28 09:08:00 Radha [facility] TOTAL PROTEIN, URINE RANDOM 2024-09-28 09:08:00 Radha [facility] LACTIC ACID WHOLE BLOOD 2024-09-28 06:21:[address] [facility] LACTIC ACID WHOLE BLOOD 2024-09-28 06:21:00 Jatin [facility] HB ECG ROUTINE & RHYTHM STRIP 2024-09-28 04:17:58 Jatin [facility] HB ECG ROUTINE & RHYTHM STRIP 2024-09-28 04:17:58 Jatin [facility] TROPONIN I 2024-09-28 04:05:00 Radha [facility] INTACT PTH CALCIUM GROUP 2024-09-28 04:05:00 Radha [facility] PHOSPHORUS 2024-09-28 04:05:00 Jatin [facility] TROPONIN I 2024-09-28 04:05:00 Radha [facility] INTACT PTH CALCIUM GROUP 2024-09-28 04:05:00 [facility] PHOSPHORUS 2024-09-28 04:05:00 [facility] FERRITIN SERUM 2024-09-28 03:48:00 [facility] TROPONIN I 2024-09-28 03:48:00 [facility] FREE T4 2024-09-28 03:48:00 [facility]ORMONE 2024-09-28 03:48:00 [facility] COMP. METABOLIC PANEL (56036) 2024-09-28 03:48:00 [facility] LIPID PANEL (46933)(TOTAL CHOLESTEROL, TRIGLYCERIDES, HDL) 2024-09-28 03:48:00 [facility] IRON PANEL 2024-09-28 03:48:00 [facility] WITH DIFF 2024-09-28 03:48:00 [facility] GLYCOSYLATED HEMOGLOBIN (A1C) 2024-09-28 03:48:00 [facility] PROTHROMBIN TIME / INR 2024-09-28 03:48:00 [facility] ACTIVATED PARTIAL THRMPLAS EARLENE 2024-09-28 03:48:00 [facility] N-TERMINAL PRO-BNP 2024-09-28 03:48:[address] [facility] MAGNESIUM 2024-09-28 03:48:00 [facility] FERRITIN SERUM 2024-09-28 03:48:00 [facility] TROPONIN I 2024-09-28 03:48:00 [facility] FREE T4 2024-09-28 03:48:00 [facility] THYROID STIMULATING HORMONE 2024-09-28 03:48:00 Harmouch, [facility] COMP. METABOLIC PANEL (52559) 2024-09-28 03:48:[address] [facility] LIPID PANEL (35880)(TOTAL CHOLESTEROL, TRIGLYCERIDES, HDL) 2024-09-28 03:48:00 Jatin [facility] IRON PANEL 2024-09-28 03:48:[address] [facility] CBC WITH DIFF 2024-09-28 03:48:00 [facility] GLYCOSYLATED HEMOGLOBIN (A1C) 2024-09-28 03:48:00 [facility] PROTHROMBIN TIME / INR 2024-09-28 03:48:00 [facility] ACTIVATED PARTIAL THRMPLAS EARLENE 2024-09-28 03:48:00 [facility] N-TERMINAL PRO-BNP 2024-09-28 03:48:[address] [facility] MAGNESIUM 2024-09-28 03:48:[address] [facility] XR CHEST 1 VW 2024-09-28 03:47:00 [facility] XR CHEST 1 VW 2024-09-28 03:47:00 [facility] CT TRAUMA HEAD WO CONTRAST 2022-04-09 18:18:44 Nely Scott [facility] CT TRAUMA CERVICAL SPINE WO CONTRAST 2022-04-09 18:18:44 Nely Scott [facility] CONSENT/REFUSAL FOR DIAGNOSI S AND TREATMENT 2022-04-09 17:37:03 Doctor Unassigned, [place] [facility] PHACOEMULSIFICATION OF CATARACT WITH INTRAOCULAR LENS IMPLANT 2022-03-01 13:48:00 Nicolas Ritter [facility] POCT GLUCOSE (AUTOMATED) 2022-03-01 12:47:00 Nicolas Ritter [facility] POCT GLUCOSE (AUTOMATED) 2022-03-01 12:47:00 Nicolas Ritter [facility] PATIENT QUESTIONNAIRE 2022-03-01 05:01:00 Doctor Unassigned, [place] [facility] DAY SURGERY - ADC 2022-03-01 05:01:00 Doctor Unassigned, [place] [facility] CONSENT/REFUSAL FOR DIAGNOSI S AND TREATMENT 2022-02-27 20:46:38 Doctor Unassigned, [place] [facility] CONSENT/REFUSAL FOR DIAGNOSI S AND TREATMENT 2022-02-27 20:46:38 Doctor Unassigned, [place] [facility] ASSIGNMENT OF BENEFITS 2022-02-27 20:46:13 Doctor Unassigned, [place] [facility] ASSIGNMENT OF BENEFITS 2022-02-27 20:46:13 Doctor Unassigned, [place] [facility] PHACOEMULSIFICATION OF CATARACT WITH INTRAOCULAR LENS IMPLANT 2022-02-15 13:55:00 Nicolas Ritter [facility] POCT GLUCOSE (AUTOMATED) 2022-02-15 12:58:00 Nicolas Ritter [facility] POCT GLUCOSE (AUTOMATED) 2022-02-15 12:58:00 Nicolas Ritter [facility] ASSIGNMENT OF BENEFITS 2022-02-11 13:57:55 Doctor Unassigned, [place] [facility] CBC WITH DIFF 2022-02-08 18:45:00 Nicolas Ritter [facility] Encounters Start Date/Time End Date/Time Encounter Type Admission Type Attending [facility] Care Department Encounter ID Source 2024-10-09 11:08:00 Outpatient Jose E Rowe [facility] [id number] [place] [facility] 2024-09-19 15:51:00 Outpatient Jose E Rowe [facility] [id number] [place] [facility] 2023-11-13 15:47:00 Outpatient CALIXTO, Na STLMLC STLMLC [id number] [facility] [place] 2022-07-28 08:19:00 Outpatient Calixto, Na STLMLC STLMLC [id number] [facility] [place] 2022-06-21 10:56:01 Outpatient Calixto, Na STLMLC STLMLC [id number] [facility] [place] 2022-06-12 10:53:02 Outpatient Calixto, Na STLMLC STLMLC [id number] [facility] 2022-03-23 09:00:00 Outpatient [place], Na STLMLC STLMLC [id number] [facility] 2022-01-25 09:23:50 Outpatient NICOLAS FARIAS [facility] OPH [id number] [facility] 2021-12-29 07:59:00 Outpatient Calixto, Na STLMLC STLMLC [id number] [facility] 2021-12-08 11:16:00 Outpatient Calixto, Na STLMLC STLMLC [id number] [facility] 2021-11-07 11:56:01 Outpatient Calixto, Na STLMLC STLMLC [id number] [facility] 2021-10-25 15:44:01 Outpatient Calixto, Na STLMLC STLMLC [id number] [facility] 2021-10-06 10:20:01 Outpatient Cali[place], Na STLMLC STLMLC [id number] [facility] 2021-09-07 12:58:36 Outpatient Sahara Na STLMLC STLMLC [id number] [facility] 2021-09-07 12:50:14 Outpatient Calixto, Na STLMLC STLMLC [id number] [facility] 2021-09-07 12:45:37 Outpatient Calixto, Na STLMLC STLMLC [id number] [facility] 2021-09-07 12:36:24 Outpatient Calixto, Na STLMLC STLMLC [id number] [facility] 2021-09-07 12:30:55 Outpatient Calixto, Na STLMLC STLMLC [id number] [facility] 2021-09-07 12:16:19 Outpatient Calixto, Na STLMLC STLMLC [id number] [facility] 2021-09-07 12:11:08 Outpatient Toño Álvarez STJARRED STLMLC [id number] [facility] [place] 2021-09-07 12:09:44 Outpatient Toño Álvarez STJARRED STLMLC [id number] [facility] [place] 2021-09-07 12:04:25 Outpatient Toño Álvarez STJARRED STLC [id number] [facility] [place] 2021-09-07 12:03:00 Outpatient Toño Álvarez STJARRED STLC [id number] [facility] [place] 2021-09-07 11:59:43 Outpatient STJARRED STLC [id number] [facility] [place] 2021-09-07 11:25:13 Outpatient Hollie Cheung STNIGELLC STLC [id number] [facility] [place] 2021-09-07 11:02:15 Outpatient Hollie Cheung STNIGELLC STLC [id number] [facility] [place] 2021-09-07 11:01:49 Outpatient Hollie Cheung STNIGELLC STLC [id number] [facility] [place] 2024-10-15 14:30:00 2024-10-15 15:24:57 Outpatient R NATALIE SUAREZ [facility] [id number] [facility] 2024-10-15 14:30:00 2024-10-15 15:00:00 Office Visit Natalie Suarez [facility] 1..840.114 350.1.13.10 4.2.7.2.686 [id number] [facility] 2024-10-02 00:00:00 2024-10-02 09:32:05 Transition of Care Alma Delia Collado Kristi L [address] 1..840.114 350.1.13.10 4.2.7.2.686 [id number] [facility] 2024-09-27 18:25:00 2024-10-01 16:00:00 Inpatient X HEVER RICCI HEMYUDI, [facility]EVER [facility] [id number] [facility] 2024-09-27 18:25:00 2024-10-01 16:00:00 Hospital Encounter Rosalva Oh Rizwan Al Samuel Hever [facility] ([facility] 1.2.840.114 350.1.13.10 4.2.7.2.686 [id number] [facility] 2024-10-01 07:30:00 2024-10-01 08:30:00 Surgery Jeremiah Molina [facility] ([facility] 1.2.840.114 350.1.13.10 4.2.7.2.686 [id number] [facility] 2023-11-13 00:00:00 2023-11-13 00:00:00 (TEL) STLMLC STLMLC [id number] [facility] 2023-03-06 14:09:00 2023-03-06 18:00:00 Emergency HARLAN Hemal Zia [facility] CAROLYN [id number] [facility] 2022-07-24 00:00:00 2022-07-24 00:00:00 (TEL) STLMLC STLMLC [id number] [facility] 2022-07-19 14:04:03 2022-07-19 14:04:03 Outpatient [facility] [id number] Damion Mcgrath 2022-07-12 06:31:00 2022-07-13 10:41:00 Inpatient Caitlin Esquivel [facility] MEDI.01 [id number] [facility] 2022-07-04 00:00:00 2022-07-04 00:00:00 (TEL) STLMLC STLMLC [id number] [facility] [place] 2022-05-30 00:00:00 2022-05-30 00:00:00 (TEL) STLMLC STLMLC [id number] [facility] [place] 2022-05-26 00:00:00 2022-05-26 00:00:00 (TEL) STLMLC STLMLC [id number] [facility] [place] 2022-04-10 00:00:00 2022-04-10 00:00:00 (TEL) STLMLC STLMLC [id number] [facility] [place] 2022-04-09 12:43:00 2022-04-09 14:01:00 Emergency X NELY SCOTT [facility] ERT [id number] [facility] 2022-04-09 12:43:00 2022-04-09 14:01:00 Emergency Nely Scott [facility] 1.2.840.114 350.1.13.10 4.2.7.2.686 [id number] [facility] 2022-04-09 00:00:00 2022-04-09 00:00:00 Orders Only Doctor Unassigned, [place] [facility] 1.2.840.114 350.1.13.10 4.2.7.2.686 [id number] [facility] 2022-03-27 00:00:00 2022-03-27 00:00:00 OFFICE VISIT ESTAB PT LEVEL 4 STLC STLC [id number] [facility] [place] 2022-03-20 00:00:00 2022-03-20 00:00:00 (TEL) STLC STLC [id number] [facility] [place] 2022-03-14 23:14:00 2022 14:48:00 Inpatient EM Rosalinda Cr [facility] INTE.02 [id number] [facility] 2022-03-14 23:14:00 2022 14:48:00 Inpatient EM Rosalinda Cr HCAPM INTE.02 [id number] [facility] 2022-03-15 06:33:00 2022-03-15 06:33:00 Outpatient Rosalinda Cr HCACL LABO [id number] [facility] 2022-03-14 00:00:00 2022-03-14 00:00:00 OFFICE VISIT ESTAB PT LEVEL 4 STLMLC STLMLC [id number] [facility] 2022-03-01 07:39:00 2022-03-01 09:47:00 Outpatient NICOLAS FARIAS [facility] OPH [id number] [facility] 2022-03-01 07:39:00 2022-03-01 09:47:00 Hospital Encounter Nicolas Ritter [facility] 1.2.840.114 350.1.13.10 4.2.7.2.686 [id number] [facility] 2022-03-01 08:25:00 2022-03-01 08:59:00 Surgery Nicolas Ritter [facility] 1.2.840.114 350.1.13.10 4.2.7.2.686 [id number] [facility] 2022-02-27 15:00:00 2022-02-27 15:15:00 Laboratory Only Only, Adc Test Nicolas Ritter [facility] 1.2.840.114 350.1.13.10 4.2.7.2.686 [id number] [facility] 2022-02-27 15:00:00 2022-02-27 15:00:00 Outpatient NICOLAS FARIAS [facility] [id number] [facility] 2022-02-15 07:36:00 2022-02-15 09:56:00 Outpatient NICOLAS FARIAS [facility] OPH [id number] [facility] 2022-02-15 07:36:00 2022-02-15 09:56:00 Hospital Encounter Nicolas Ritter [facility] 1.2.840.114 350.1.13.10 4.2.7.2.686 [id number] [facility] 2022-02-15 08:25:00 2022-02-15 08:59:00 Surgery Nicolas Ritter [facility] 1.2.840.114 350.1.13.10 4.2.7.2.686 [id number] [facility] 2022-02-14 14:15:00 2022-02-14 14:15:00 Outpatient NICOLAS FARIAS [facility] [id number] [facility] 2022-02-14 14:15:00 2022-02-14 14:15:00 Outpatient NICOLAS FARIAS [facility] [id number] [facility] 2022-02-14 11:30:00 2022-02-14 11:45:00 Movement Education Specialist Visit Pob, Adc Lab Main Nicolas Ritter [facility] 1.2.840.114 350.1.13.10 4.2.7.2.686 [id number] [facility] 2022-02-14 11:30:00 2022-02-14 11:30:00 Outpatient R NICOLAS RITTER [facility] [id number] [facility] 2022-02-11 09:00:00 2022-02-11 09:15:00 Movement Education Specialist Visit Pob, Adc Lab Main Sylvia Iglesias [facility] 1.2.840.114 350.1.13.10 4.2.7.2.686 [id number] [facility] 2022-02-11 09:00:00 2022-02-11 09:00:00 Outpatient SYLVIA MALDONADO [facility] [id number] [facility] 2022-02-11 08:45:00 2022-02-11 09:00:00 Laboratory Only Only, Adc Test Mirian Seo [facility] 1.840.114 350.1.13.10 4.2.7.2.686 [id number] [facility] 2022-02-11 00:00:00 2022-02-11 00:00:00 Orders Only Doctor Unassigned, [place] [facility] 1.840.114 350.1.13.10 4.2.7.2.686 [id number] [facility] 2022-02-09 00:00:00 2022-02-09 00:00:00 [facility] [id number] 2022-02-08 07:45:00 2022-02-08 08:00:00 Movement Education Specialist Visit Pob, Adc Lab Nicolas Bustamante [facility] 1.840.114 350.1.13.10 4.2.7.2.686 [id number] [facility] 2022-02-08 07:45:00 2022-02-08 07:45:00 Outpatient NICOLAS FARIAS [facility] [id number] [facility] 2022-02-08 00:00:00 2022-02-08 00:00:00 [facility]EL[facility] [id number] [facility] [place] 2022-02-08 00:00:00 2022-02-08 00:00:00 (TEL) STLC STLC [id number] [facility] [place] 2022-01-30 15:15:00 2022-01-30 15:15:00 Outpatient NICOLAS FARIAS [facility] [id number] [facility] 2022-01-30 00:00:00 2022-01-30 00:00:00 Orders Only Doctor Unassigned, [place] [facility] 1.840.114 350.1.13.10 4.2.7.2.686 [id number] [facility] 2022-01-27 00:00:00 2022-01-27 00:00:00 (TEL) STLMLC STLMLC [id number] [facility] 2022-01-23 13:00:00 2022-01-23 13:15:00 Movement Education Specialist Visit [place], [facility] 1.2.840.114 350.1.13.10 4.2.7.2.686 [id number] [facility] 2022-01-23 13:00:00 2022-01-23 13:00:00 Outpatient R [facility] [id number] [facility] 2022-01-17 12:05:18 2022-01-17 23:59:00 Outpatient R [facility] [id number] [facility] 2022-01-17 12:05:18 2022-01-17 23:59:00 Hospital Encounter Radiology [facility] 1.2.840.114 350.1.13.10 4.2.7.2.686 [id number] [facility] 2022-01-17 12:00:00 2022-01-17 12:15:00 Movement Education Specialist Visit [place], [facility] Main [facility] 1.2.840.114 350.1.13.10 4.2.7.2.686 [id number] [facility] 2022-01-06 00:00:00 2022-01-06 00:00:00 (TEL) STLMLC STLMLC [id number] [facility] [place] 2022-01-03 11:52:59 2022-01-03 23:59:00 Outpatient R RADIOLOGY [facility] [id number] [facility] 2022-01-03 11:52:59 2022-01-03 23:59:00 Hospital Encounter Radiology [facility] 1.2.840.114 350.1.13.10 4.2.7.2.686 [id number] [facility] 2022-01-02 00:00:00 2022-01-02 00:00:00 (TEL) STLMLC STLMLC [id number] [facility] [place] 2022-01-02 00:00:00 2022-01-02 00:00:00 OFFICE VISIT ESTAB PT LEVEL 4 STLMLC STLMLC [id number] [facility] [place] [place] 2021-12-27 00:00:00 2021-12-27 00:00:00 (TEL) STLMLC STLMLC [id number] [facility] [place] 2021-12-23 14:17:19 2021-12-23 23:59:00 Hospital Encounter Radiology [facility] [id number] 350.1.13.10 4.2.7.2.686 [id number] 800 [id number] [facility] 2021-12-23 14:16:57 2021-12-23 14:16:57 Outpatient R RADIOLOGY [facility] [id number] [facility] 2021-12-23 14:16:57 2021-12-23 14:16:57 Hospital Encounter Radiology [facility] [id number] 350.1.13.10 4.2.7.2.686 [id number] 800 [id number] [facility] 2021-12-06 00:00:00 2021-12-06 00:00:00 (TEL) STLMLC STLMLC [id number] [facility] [place] 2021-11-17 13:17:58 2021-11-17 23:59:00 Hospital Encounter Radiology [facility] [id number] 350.1.13.10 4.2.7.2.686 [id number] 800 [id number] [facility] 2021-11-17 13:17:06 2021-11-17 23:59:00 Hospital Encounter Radiology [facility] 1.2840.114 350.1.13.10 4.2.7.2.686 [id number] 800 [id number] [facility] 2021-11-17 13:17:06 2021-11-17 23:59:00 Outpatient R RADIOLOGY [facility] RAD [id number] [facility] 2021-11-11 00:00:00 2021-11-11 00:00:00 (TEL) STLMLC STLMLC [id number] [facility] [place] 2021-11-08 00:00:00 2021-11-08 00:00:00 OFFICE VISIT EST PT LEVEL 3 STLMLC STLMLC [id number] [facility] [place] 2021-11-03 14:15:00 2021-11-03 14:30:00 Movement Education Specialist Visit Pob, Adc Lab Main Mirian Seo [facility] 1.2.840.114 350.1.13.10 4.2.7.2.686 [id number] [facility] 2021-11-03 14:15:00 2021-11-03 14:15:00 Outpatient R [facility] [id number] [facility] 2021-11-03 00:00:00 2021-11-03 00:00:00 Orders Only Doctor Unassigned, [place] [facility] 1.2.840.114 350.1.13.10 4.2.7.2.686 [id number] [facility] 2021-10-24 00:00:00 2021-10-24 00:00:00 (TEL) STLMLC STLMLC [id number] [facility] [place] 2021-10-10 00:00:00 2021-10-10 00:00:00 (TEL) STLMLC STLMLC [id number] [facility] [place] 2021-10-07 00:00:00 2021-10-07 00:00:00 SUB ANNUAL MCR WELLNESS VISIT STLMLC STLMLC [id number] [facility] [place] 2021-10-07 00:00:00 2021-10-07 00:00:00 OFFICE VISIT EST PT LEVEL 3 STLMLC STLMLC [id number] [facility] [place] 2021-07-25 00:00:00 2021-07-25 00:00:00 (TEL) STLMLC STLMLC [id number] [facility] [place] 2021-07-14 00:00:00 2021-07-14 00:00:00 OFFICE VISIT ESTAB PT LEVEL 4 STLMLC STLMLC [id number] [facility] [place] 2021-06-20 00:00:00 2021-06-20 00:00:00 (TEL) STLMLC STLMLC [id number] [facility] [place] 2021-06-10 00:00:00 2021-06-10 00:00:00 (TEL) STLMLC STLMLC [id number] [facility] [place] 2021-06-06 00:00:00 2021-06-06 00:00:00 (TEL) STLMLC STLMLC [id number] [facility] [place] 2021-06-06 00:00:00 2021-06-06 00:00:00 OFFICE VISIT EST PT LEVEL 3 STLMLC STLMLC [id number] [facility] [place] 2021-06-02 00:00:00 2021-06-02 00:00:00 OFFICE VISIT EST PT LEVEL 3 STLMLC STLMLC [id number] [facility] [place] 2021-04-13 00:00:00 2021-04-13 00:00:00 OFFICE VISIT ESTAB PT LEVEL 4 STLMLC STLMLC [id number] [facility] [place] 2021-04-05 00:00:00 2021-04-05 00:00:00 Outpatient STLMLC STLMLC [id number] [facility] [place] 2021-03-01 00:00:00 2021-03-01 00:00:00 Outpatient STLMLC STLMLC [id number] [facility] [place] 2020-12-13 00:00:00 2020-12-13 00:00:00 Outpatient STLMLC STLMLC [id number] [facility] [place] 2020-11-21 00:00:00 2020-11-21 00:00:00 Outpatient STLMLC STLMLC [id number] [facility] [place] 2020-11-08 00:00:00 2020-11-08 00:00:00 Outpatient STLMLC STLMLC [id number] [facility] [place] 2020-10-14 00:00:00 2020-10-14 00:00:00 Outpatient STLMLC STLMLC [id number] [facility] [place] 2020-07-21 00:00:00 2020-07-21 00:00:00 Outpatient STLMLC STLMLC [id number] [facility] [place] 2020-06-29 00:00:00 2020-06-29 00:00:00 Outpatient STLMLC STLMLC [id number] [facility] [place] 2020-06-22 00:00:00 2020-06-22 00:00:00 Outpatient STLMLC STLMLC [id number] [facility] [place] 2020-04-27 15:47:00 2020-04-27 15:47:00 Outpatient [facility] [id number] [facility] [place] 2020-04-12 11:12:00 2020-04-12 11:12:00 Outpatient [facility] [id number] [facility] [place] 2020-04-06 08:16:00 2020-04-06 08:16:00 Outpatient [facility] [id number] [facility] [place] 2020-03-11 09:40:00 2020-03-11 09:40:[address] [facility] [id number] [facility] 2020-01-16 15:20:00 2020-01-16 15:20:[address] [facility] [id number] [facility] 2019-11-27 10:51:00 2019-11-27 10:51:00 [address] [facility] [id number] [facility] 2019-11-20 08:43:00 2019-11-20 08:43:00 [address] [facility] [id number] [facility] 2019-11-18 14:00:00 2019-11-18 14:00:00 [facility] [id number] [facility] [place] 2019-11-18 10:06:00 2019-11-18 10:06:[address] [facility] [id number] [facility] 2019-10-28 16:14:00 2019-10-28 16:14:[address] [facility] [id number] [facility] 2019-10-26 23:58:00 2019-10-26 23:58:[address] [facility] [id number] [facility] 2019-10-23 08:30:00 2019-10-23 08:30:[address] [facility] [facility] [id number] [facility] 2019-09-07 02:09:00 2019-09-07 02:09:00 [facility] [facility] [id number] [facility] 2019-09-04 08:39:00 2019-09-04 08:39:[address] [facility] [id number] [facility] 2019-09-03 15:00:00 2019-09-03 15:00:00 [facility] [id number] [facility] 2019-08-05 08:20:00 2019-08-05 08:20:00 [facility] [id number] [facility] 2019-07-23 11:48:00 2019-07-23 11:48:00 [facility] [id number] [facility] 2019-07-04 11:00:00 2019-07-04 11:00:00 [facility] Medicine [id number] [facility] [place] 2019-06-16 14:52:00 2019-06-16 14:52:00 Outpatient zzzAmy Schochler DO zzzAmy Schochler DO [id number] [facility] [place] 2019-06-05 12:07:00 2019-06-05 12:07:00 [facility] Medicine [id number] [facility] [place] 2019-04-23 09:47:00 2019-04-23 09:47:00 [facility] [id number] [facility] [place] 2019-04-15 13:00:00 2019-04-15 13:00:00 [facility] [id number] [facility] [place] Results Test Description Test Time Test Comments Results Result Co mments Source [facility] GLUCOSE (AUTOMATED)2024-10-01 18:44:21* Test Item Value Reference Range Interpretation Comme nts POCT GLU (test code = 9452118249) 114 mg/dL 70-110 H Lab Interpretation (test cod e = 23832-2) Abnormal [facility] GLUCOSE (AUTOMATED)2024-10-01 15:18:51* Test Item Value Reference Range Interpretation Comme nts POCT GLU (test code = 1917855762) 162 mg/dL 70-110 H Lab Interpretation (test cod e = 49776-7) [facility] 15:18:51* Test Item Value Reference Range Interpretation Comme nts POCT GLU (test code = 2378832169) 162 mg/dL 70-110 H Lab Interpretation (test cod e = 17656-4) [facility] Zqbtbpnslyjjbqb2454-54-32 14:23:10Coronary Angiography Annie Claros Date of Service: 10/01/2024 ?8:17 AM Attending Physician: Jeremiah Molinaow: Dr. Dupont and Dr. Burgos Physician: Davin Carrillo Procedures Performed:Coronary angiogram Indication/Diagnosis: ACS ([place]/NSTEMI) Consent: Risks, benefits, alternatives and complications of the procedure discussed with the patient, who understood and agreed to proceed. Aseptic technique: Chlorprep Local Anesthesia: 1% lidocaine without epinephrine Sedation: Moderate Access site: Right radial artery Closure Method: TR band Sterile dressing: yes Complications: none Proc edures: After patient identification/verification, the patient was thereafter transferred to the pathology laboratory aides teacher table. ?The access site was prepped and draped in usual sterile fashion. After administering sedation, time out was done. Under ultrasound guidance, using Seldinger technique, the Right radial artery was accessed and a 6 Fr Slender sheath was introduced into the artery. A5 Fr TIG 4.0 catheterwas used to cannulate the LM. Selective coronary angiography was done using several views. A 5 Fr JR 4.0 was used to cross the AV with the J wire and the catheter was advanced into the LV where selective LVEDP was measured. The catheter was then used to cannulate the RCA and selective coronary angiography was done using multiple views. The attending physician was present throughout the procedure and provided the highest level of supervision. Findings: Coronary dominance: left Left main: Angiographically normal LAD: Large, proximal mild 20- 30% disease. Mid to distal with diffuse mild LI D1: small D2: Patent RI: Patent with mild LI LCX: Large and dominant. Patent proximal to distal stent withno ISR. OM1: Patent with mild LI OM2: small and patent LPDA: Patent RCA: Non dominant. Proximal mild LI then severe 80% mid segment disease. Distal mild LI PDA: Small and patent LVEDP: We didn't cross the AV into the LV due to LV thrombus Post-Procedure Sedation AddendumImmediately prior to start of sedation, the patient was evaluated and there was no change from the pre-procedure evaluation. I was present and directed medical care.The patient underwent moderate sedation ?for the procedure. Themedications administered were recorded in the MAR; oxygenation, ventilation and circulation were monitored continuously and were recorded in the EMR. I evaluated the patient after the procedure.The patient was evaluated immediately as recovering from sedation. Complications: None Impression:Patent LCX stentLAD with mild non obstructive CADRCA non dominant with severe mid disease for medical managementLikely stress induced cardiomyopathy Plan:Aggressive medical management and risk factors modific ationsFindings discussed with Dr. Ricci and the patient Jeremiah Molina MD [facility] 11:10:28 * Test Item Value Reference Range Interpretation Comme nts MAGNESIUM (test code = 6512301625) 2.0 mg/dL 1.7-2.4 Lab Interpretation (test cod e = 40017-4) Normal [facility]2025-02-19 11:10:28* Test Item Value Reference Range Interpretation Comme nts MAGNESIUM (test code = 9126790012) 2.0 mg/dL 1.7-2.4 Lab Interpretation (test cod e = 32616-3) Normal [facility] Metabolic Panel (NA, K, CL, CO2, GLUCOSE, BUN, CREATININE, CA)2024-10-01 11:10:27* Test Item Value Reference Range Interpretation Comme nts NA (test code = 8253711277) 135 mmol/L 135-145 K (test code = 9773758200) 5.0 mmol/L 3.5-5.0 CL (test code = 4135235223) 108 mmol/L 98-108 CO2 TOTAL (test code = 6030107875) 22 mmol/L 23-31 L AGAP (test code = 5488221692) 5 2-16 BUN (test code = 4639629134) 18 mg/dL 7-23 GLUCOSE (test code = 1461107468) 104 mg/dL 70-110 CREATININE (test code = 2160-0) 1.40 mg/dL 0.50-1.04 H CALCIUM (test code = 3190169525) 9.7 mg/dL 8.6-10.6 eGFR (test code = 12704-8) 40.1 mL/min/1.73m2 CKD-EPI eGFR (2020). Assuming creatinine has been stable day-to-day for at least three months, the eGFR indicates Category G3b (30 - 44 mL/min/1.73 m2) Lab Interpretation (test code = 62738-9) Abnormal [facility] Metabolic Panel (NA, K, CL, CO2, GLUCOSE, BUN, CREATININE, CA)2024-10-01 11:10:27* Test Item Value Reference Range Interpretation Comme [facility] NA (test code = 1625381635) 135 mmol/L 135-145 K (test code = 9401034550) 5.0 mmol/L 3.5-5.0 CL (test code = 0369398076) 108 mmol/L 98-108 CO2 TOTAL (test code = 0979290294) 22 mmol/L 23-31 L AGAP (test code = 7004837871) 5 2-16 BUN (test code = 0172787256) 18 mg/dL 7-23 GLUCOSE (test code = 1853657690) 104 mg/dL 70-110 CREATININE (test code = 2160-0) 1.40 mg/dL 0.50-1.04 H CALCIUM (test code = 4169450867) 9.7 mg/dL 8.6-10.6 eGFR (test code = 69332-8) 40.1 mL/min/1.73m2 CKD-EPI eGFR (2020). Assuming creatinine has been stable day-to-day for at least three months, the eGFR indicates Category G3b (30 - 44 mL/min/1.73 m2) Lab Interpretation (test code = 73740-2) [facility]2024-10-01 08:18:08* Test Item Value Reference Range Interpretation Comme [facility] APTT Patient (test code = 3173-2) 72 26-36 H Lab Interpretation (test cod e = 11487-9) [facility]2024-10-01 08:18:08* Test Item Value Reference Range Interpretation Comme nts APTT Patient (test code = 3173-2) 72 26-36 H Lab Interpretation (test cod e = 79208-5) Abnormal [facility] with Wxti7318-46-34 08:12:26* Test Item Value Reference Range Interpretation Comme nts WBC (test code = 6690-2) 8.23 4.30-11.10 RBC (test code = 789-8) 2.67 3.93-5.25 L HGB (test code = 718-7) 9.1 g/dL 11.6-15.0 L HCT (test code = 4544-3) 26.2 % 35.7-45.2 L MCV (test code = 787-2) 98.1 fL 80.6-95.5 H MCH (test code = 785-6) 34.1 pg 25.9-32.8 H MCHC (test code = 786-4) 34.7 g/dL 31.6-35.1 RDW-SD (test code = 53382-9) 47.2 fL 39.0-49.9 RDW-CV (test code = 788-0) 13.2 % 12.0-15.5 PLT (test code = 777-3) 208 166-358 MPV (test code = 43211-1) 12.1 fL 9.5-12.9 NRBC/100 WBC (test code = 4085640353) 0.0 0.0-10.0 NRBC x10^3 (test code = 7100690699) See_Comment [Automated messa ge] The system which generated this result transmitted reference range: 10*3/?L. The reference range was not used to interpret this result as normal/abnormal. GRAN MAT (NEUT) % (test code = 770-8) 67.0 % IMM GRAN % (test code = 1360563739) 0.40 % LYMPH % (test code = 736-9) 22.4 % MONO % (test code = 5905-5) 6.9 % EOS % (test code = 713-8) 2.6 % BASO % (test code = 706-2) 0.7 % GRAN MAT x10^3(ANC) (test code = 8783597714) 5.52 10*3/uL 1.88-7.09 IMM GRAN x10^3 (test code = 7616509624) 0.03 10*3/uL 0.00-0.06 LYMPH x10^3 (test code = 731-0) 1.84 10*3/uL 1.32-3.29 MONO x10^3 (test code = 742-7) 0.57 10*3/uL 0.33-0.92 EOS x10^3 (test code = 711-2) 0.21 10*3/uL 0.03-0.39 BASO x10^3 (test code = 704-7) 0.06 10*3/uL 0.01-0.07 Lab Interpretation (test code = 48640-7) Abnormal [facility] with Cdng3026-37-14 08:12:26* Test Item Value Reference Range Interpretation Comme nts WBC (test code = 6690-2) 8.23 4.30-11.10 RBC (test code = 789-8) 2.67 3.93-5.25 L HGB (test code = 718-7) 9.1 g/dL 11.6-15.0 L HCT (test code = 4544-3) 26.2 % 35.7-45.2 L MCV (test code = 787-2) 98.1 fL 80.6-95.5 H MCH (test code = 785-6) 34.1 pg 25.9-32.8 H MCHC (test code = 786-4) 34.7 g/dL 31.6-35.1 RDW-SD (test code = 11938-5) 47.2 fL 39.0-49.9 RDW-CV (test code = 788-0) 13.2 % 12.0-15.5 PLT (test code = 777-3) 208 166-358 MPV (test code = 90733-5) 12.1 fL 9.5-12.9 NRBC/100 WBC (test code = 8719808517) 0.0 0.0-10.0 NRBC x10^3 (test code = 6660738514) See_Comment [Automated messa ge] The system which generated this result transmitted reference range: 10*3/?L. The reference range was not used to interpret this result as normal/abnormal. GRAN MAT (NEUT) % (test code = 770-8) 67.0 % IMM GRAN % (test code = 7777481111) 0.40 % LYMPH % (test code = 736-9) 22.4 % MONO % (test code = 5905-5) 6.9 % EOS % (test code = 713-8) 2.6 % BASO % (test code = 706-2) 0.7 % GRAN MAT x10^3(ANC) (test code = 0101202026) 5.52 10*3/uL 1.88-7.09 IMM GRAN x10^3 (test code = 0888908280) 0.03 10*3/uL 0.00-0.06 LYMPH x10^3 (test code = 731-0) 1.84 10*3/uL 1.32-3.29 MONO x10^3 (test code = 742-7) 0.57 10*3/uL 0.33-0.92 EOS x10^3 (test code = 711-2) 0.21 10*3/uL 0.03-0.39 BASO x10^3 (test code = 704-7) 0.06 10*3/uL 0.01-0.07 Lab Interpretation (test code = 45813-4) Abnormal [facility] GLUCOSE (AUTOMATED)2024-10-01 02:20:50* Test Item Value Reference Range Interpretation Comme nts POCT GLU (test code = 0930754755) 139 mg/dL 70-110 H Lab Interpretation (test cod e = 80436-0) Abnormal [facility] GLUCOSE (AUTOMATED)2024-10-01 02:20:50* Test Item Value Reference Range Interpretation Comme nts POCT GLU (test code = 1528272778) 139 mg/dL 70-110 H Lab Interpretation (test cod e = 40799-6) Abnormal [facility] GLUCOSE (AUTOMATED)2024-09-30 23:18:22* Test Item Value Reference Range Interpretation Comme nts POCT GLU (test code = 6685278003) 143 mg/dL 70-110 H Lab Interpretation (test cod e = 83036-1) Abnormal [facility] GLUCOSE (AUTOMATED)2024-09-30 23:18:22* Test Item Value Reference Range Interpretation Comme nts POCT GLU (test code = 3020120742) 143 mg/dL 70-110 H Lab Interpretation (test cod e = 74610-7) Abnormal [facility] GLUCOSE (AUTOMATED)2024-09-30 19:22:49* Test Item Value Reference Range Interpretation Comme nts POCT GLU (test code = 7426474397) 118 mg/dL 70-110 H Lab Interpretation (test cod e = 26423-9) Abnormal [facility] GLUCOSE (AUTOMATED)2024-09-30 19:22:49* Test Item Value Reference Range Interpretation Comme nts POCT GLU (test code = 6802992270) 118 mg/dL 70-110 H Lab Interpretation (test cod e = 17803-8) Abnormal [facility] GLUCOSE (AUTOMATED)2024-09-30 14:11:48* Test Item Value Reference Range Interpretation Comme nts POCT GLU (test code = 6641462316) 115 mg/dL 70-110 H Lab Interpretation (test cod e = 28724-3) Abnormal [facility] GLUCOSE (AUTOMATED)2024-09-30 14:11:48* Test Item Value Reference Range Interpretation Comme nts POCT GLU (test code = 9158463331) 115 mg/dL 70-110 H Lab Interpretation (test cod e = 39623-9) Abnormal [facility] with Khyl1034-04-51 12:06:52* Test Item Value Reference Range Interpretation Comme nts WBC (test code = 6690-2) 8.33 4.30-11.10 RBC (test code = 789-8) 2.88 3.93-5.25 L HGB (test code = 718-7) 10.0 g/dL 11.6-15.0 L HCT (test code = 4544-3) 28.7 % 35.7-45.2 L MCV (test code = 787-2) 99.7 fL 80.6-95.5 H MCH (test code = 785-6) 34.7 pg 25.9-32.8 H MCHC (test code = 786-4) 34.8 g/dL 31.6-35.1 RDW-SD (test code = 24998-2) 48.1 fL 39.0-49.9 RDW-CV (test code = 788-0) 13.2 % 12.0-15.5 PLT (test code = 777-3) 182 166-358 MPV (test code = 36426-9) 11.9 fL 9.5-12.9 NRBC/100 WBC (test code = 6450878792) 0.0 0.0-10.0 NRBC x10^3 (test code = 8565594831) See_Comment [Automated messa ge] The system which generated this result transmitted reference range: 10*3/?L. The reference range was not used to interpret this result as normal/abnormal. GRAN MAT (NEUT) % (test code = 770-8) 63.9 % IMM GRAN % (test code = 5752652605) 0.60 % LYMPH % (test code = 736-9) 23.5 % MONO % (test code = 5905-5) 8.2 % EOS % (test code = 713-8) 2.8 % BASO % (test code = 706-2) 1.0 % GRAN MAT x10^3(ANC) (test code = 8316345143) 5.33 10*3/uL 1.88-7.09 IMM GRAN x10^3 (test code = 4067485972) 0.05 10*3/uL 0.00-0.06 LYMPH x10^3 (test code = 731-0) 1.96 10*3/uL 1.32-3.29 MONO x10^3 (test code = 742-7) 0.68 10*3/uL 0.33-0.92 EOS x10^3 (test code = 711-2) 0.23 10*3/uL 0.03-0.39 BASO x10^3 (test code = 704-7) 0.08 10*3/uL 0.01-0.07 H Lab Interpretation (test code = 68331-1) Abnormal [facility] with Vsln2149-56-64 12:06:52* Test Item Value Reference Range Interpretation Comme nts WBC (test code = 6690-2) 8.33 4.30-11.10 RBC (test code = 789-8) 2.88 3.93-5.25 L HGB (test code = 718-7) 10.0 g/dL 11.6-15.0 L HCT (test code = 4544-3) 28.7 % 35.7-45.2 L MCV (test code = 787-2) 99.7 fL 80.6-95.5 H MCH (test code = 785-6) 34.7 pg 25.9-32.8 H MCHC (test code = 786-4) 34.8 g/dL 31.6-35.1 RDW-SD (test code = 38719-2) 48.1 fL 39.0-49.9 RDW-CV (test code = 788-0) 13.2 % 12.0-15.5 PLT (test code = 777-3) 182 166-358 MPV (test code = 03456-6) 11.9 fL 9.5-12.9 NRBC/100 WBC (test code = 0187486786) 0.0 0.0-10.0 NRBC x10^3 (test code = 2238514255) See_Comment [Automated messa ge] The system which generated this result transmitted reference range: 10*3/?L. The reference range was not used to interpret this result as normal/abnormal. GRAN MAT (NEUT) % (test code = 770-8) 63.9 % IMM GRAN % (test code = 8026626530) 0.60 % LYMPH % (test code = 736-9) 23.5 % MONO % (test code = 5905-5) 8.2 % EOS % (test code = 713-8) 2.8 % BASO % (test code = 706-2) 1.0 % GRAN MAT x10^3(ANC) (test code = 8352230659) 5.33 10*3/uL 1.88-7.09 IMM GRAN x10^3 (test code = 0805897739) 0.05 10*3/uL 0.00-0.06 LYMPH x10^3 (test code = 731-0) 1.96 10*3/uL 1.32-3.29 MONO x10^3 (test code = 742-7) 0.68 10*3/uL 0.33-0.92 EOS x10^3 (test code = 711-2) 0.23 10*3/uL 0.03-0.39 BASO x10^3 (test code = 704-7) 0.08 10*3/uL 0.01-0.07 H Lab Interpretation (test code = 37371-4) Abnormal [facility] Metabolic Panel (NA, K, CL, CO2, GLUCOSE, BUN, CREATININE, CA)2024-09-30 12:01:14* Test Item Value Reference Range Interpretation Comme nts NA (test code = 3107076670) 133 mmol/L 135-145 L K (test code = 4512216593) 4.8 mmol/L 3.5-5.0 CL (test code = 2344696864) 108 mmol/L 98-108 CO2 TOTAL (test code = 7837119188) 18 mmol/L 23-31 L AGAP (test code = 2786230887) 7 2-16 BUN (test code = 4153460202) 18 mg/dL 7-23 GLUCOSE (test code = 9555233960) 104 mg/dL 70-110 CREATININE (test code = 2160-0) 1.32 mg/dL 0.50-1.04 H CALCIUM (test code = 6896541525) 9.6 mg/dL 8.6-10.6 eGFR (test code = 41834-5) 43.0 mL/min/1.73m2 CKD-EPI eGFR (2020). Assuming creatinine has been stable day-to-day for at least three months, the eGFR indicates Category G3b (30 - 44 mL/min/1.73 m2) Lab Interpretation (test code = 78233-4) [facility]* Test Item Value Reference Range Interpretation Comme nts MAGNESIUM (test code = 6811534302) 1.9 mg/dL 1.7-2.4 Lab Interpretation (test cod e = 51111-0) Normal [facility] Metabolic Panel (NA, K, CL, CO2, GLUCOSE, BUN, CREATININE, [place])2024-09-30 12:01:14* Test Item Value Reference Range Interpretation Comme nts NA (test code = 1522285461) 133 mmol/L 135-145 L K (test code = 9241013930) 4.8 mmol/L 3.5-5.0 CL (test code = 6128981400) 108 mmol/L 98-108 CO2 TOTAL (test code = 2603105258) 18 mmol/L 23-31 L AGAP (test code = 8866711311) 7 2-16 BUN (test code = 3119061282) 18 mg/dL 7-23 GLUCOSE (test code = 0540947310) 104 mg/dL 70-110 CREATININE (test code = 2160-0) 1.32 mg/dL 0.50-1.04 H CALCIUM (test code = 6684953219) 9.6 mg/dL 8.6-10.6 eGFR (test code = 97962-1) 43.0 mL/min/1.73m2 CKD-EPI eGFR (2020). Assuming creatinine has been stable day-to-day for at least three months, the eGFR indicates Category G3b (30 - 44 mL/min/1.73 m2) Lab Interpretation (test code = 62236-4) [facility]* Test Item Value Reference Range Interpretation Comme nts MAGNESIUM (test code = 7785122651) 1.9 mg/dL 1.7-2.4 Lab Interpretation (test cod e = 83701-7) Normal [facility] GLUCOSE (AUTOMATED)2024-09-30 02:18:51* Test Item Value Reference Range Interpretation Comme nts POCT GLU (test code = 0995861979) 142 mg/dL 70-110 H Lab Interpretation (test cod e = 27282-1) Abnormal [facility] GLUCOSE (AUTOMATED)2024-09-30 02:18:51* Test Item Value Reference Range Interpretation Comme nts POCT GLU (test code = 5465107846) 142 mg/dL 70-110 H Lab Interpretation (test cod e = 92115-7) Abnormal [facility] GLUCOSE (AUTOMATED)2024-09-29 22:46:49* Test Item Value Reference Range Interpretation Comme nts POCT GLU (test code = 6910515721) 156 mg/dL 70-110 H Lab Interpretation (test cod e = 81087-4) Abnormal [facility] GLUCOSE (AUTOMATED)2024-09-29 22:46:49* Test Item Value Reference Range Interpretation Comme nts POCT GLU (test code = 8549102976) 156 mg/dL 70-110 H Lab Interpretation (test cod e = 75765-6) Abnormal [facility] Heart w contrast structures and cardiac function (non coronary)2024-09-29 22:01:25CLINICAL HISTORY: 74year old female, concern for left ventricular thrombusTECHNIQUE: Using a GE [place] scanner, following administration of intravenouscontrast, ECG gated images were obtained through the heart and a 60seconddelayed phase imaging was obtained. Image post- processing with 3Dreconstructions was performed using [employer] ([employer] Intuition Viewer)CT post-processing software.Acquisition: Prospective ECG triggering was used. [facility] function (non coronary)2024-09-29 22:01:25CLINICAL HISTORY: 74year old female, concern for left ventricular thrombusTECHNIQUE: Using a GE [place] scanner, following administration of intravenouscontrast, ECG gated images were obtained through the heart and a 60seconddelayed phase imaging was obtained. Image post-processing with 3Dreconstructions was performed using [employer] ([employer] Intuition Viewer)CT post-processing software.Acquisition: Prospective ECG triggering was used. TECHNICAL Quality: [facility]24-[facility]-29 19:39:50* Test Item Value Reference Range Interpretation Comme nts POCT GLU (test code = 6002360137) 141 mg/dL 70-110 H Lab Interpretation (test cod e = 58808-6) Abnormal [facility] GLUCOSE (AUTOMATED)2024-09-29 19:39:50* Test Item Value Reference Range Interpretation Comme nts POCT GLU (test code = 5716472646) 141 mg/dL 70-110 H Lab Interpretation (test cod e = 27346-2) [facility]2024-09-29 19:38:14* Test Item Value Reference Range Interpretation Comme nts APTT Patient (test code = 3173-2) 28 26-36 Lab Interpretation (test cod e = 75775-7) [facility]2024-09-29 19:38:14* Test Item Value Reference Range Interpretation Comme nts APTT Patient (test code = 3173-2) 28 36 Lab Interpretation (test cod e = 94470-2) [facility] wo [id number] 18:09:01MR BRAIN WO CONTRAST COMPARISON: CT head 09/28/2024 HISTORY: Stroke, follow up TECHNIQUE: Multisequence multiplanar MR images of the brain obtainedwithout IV contrast. FINDINGS: Area of restricted diffusion at the right occipital lobe with correspondingT2/FLAIR hyperintensity, compatible with acute infarct. Additional acutepunctate infarct at the right precentral gyrus. Small chronic infarct attheleft occipital lobe. Punctate chronic infarct at the right middlefrontal gyrus. No midline shift. No significant mass effect. No hemorrhagictransformation. No hydrocephalus or pathological extra-axial fluid collection is present.The basal cisterns are unremarkable. Scattered foci of T2/FLAIR white matter hyperintensities, likely reflectchronic microvessel ischemic changes. No abnormal gradient blooming. The T2 flow voids for the major intracranial vessels are unremarkable. Noabnormal fluid signal is present in the mastoid air cells or paranasal airsinuses.[facility] Brain wo [id number] 18:09:01MR BRAIN WO CONTRAST COMPARISON: CT head 09/28/2024 HISTORY: Stroke, follow up TECHNIQUE: Multisequence multiplanar MR images of the brain obtainedwithout IV contrast. FINDINGS: Area of restricted diffusion at the right occipital lobe with correspondingT2/FLAIR hyperintensity, compatible with acute infarct. Additional acutepunctate infarct at the right precentral gyrus. Small chronic infarct attheleft occipital lobe. Punctate chronic infarct at the right middlefrontal gyrus. No midline shift. No significant mass effect. No hemorrhagictransformation. No hydrocephalus or pathological extra-axial fluid collection is present.The basal cisterns are unremarkable. Scattered foci of T2/FLAIR white matter hyperintensities, likely reflectchronic microvessel ischemic changes. No abnormal gradient blooming. The T2 flow voids for the major intracranial vessels are unremarkable. Noabnormal fluid signal is present in the mastoid air cells or paranasal airsinuses. [facility] GLUCOSE (AUTOMATED)2024-09-29 15:44:48* Test Item Value Reference Range Interpretation Comme nts POCT GLU (test code = 0743026900) 124 mg/dL 70-110 H Lab Interpretation (test cod e = 99522-7) Abnormal [facility] GLUCOSE (AUTOMATED)2024-09-29 15:44:48* Test Item Value Reference Range Interpretation Comme nts POCT GLU (test code = 5276592377) 124 mg/dL 70-110 H Lab Interpretation (test cod e = 51137-1) Abnormal [facility] GLUCOSE (AUTOMATED)2024-09-29 02:49:15* Test Item Value Reference Range Interpretation Comme nts POCT GLU (test code = 5700873920) 118 mg/dL 70-110 H Lab Interpretation (test cod e = 50071-5) Abnormal [facility] GLUCOSE (AUTOMATED)2024-09-29 02:49:15* Test Item Value Reference Range Interpretation Comme nts POCT GLU (test code = 4965746850) 118 mg/dL 70-110 H Lab Interpretation (test cod e = 67242-9) Abnormal [facility] Center[facility] ([facility]E) [id number] 23:52:27* Test Item Value Reference Range Interpretation Comme nts Height (test code = 8872554261) 62 in Weight (test code = 5272099134) 164 lbs Systolic BP (test code = 8233888667) 105 mmHg Diastolic BP (test code = 3905252051) 72 mmHg Heart Rate (test code = 1025202526) 88 bpm BSA (test code = 6450388597) 1.76 m2 Radiology Study observation (narrative) (test code = 25109-9) MAGDA (test code = MAGDA) ?Left?Ventricle: Left ventricle size is normal. Normal wall thickness. Can not exclude LV thrombus. See diagram for wall motion findings (DD inlcudes myocardial infarction vs. stress takotsubo cardiomyopathy vs. other etiology). Severely reduced systolic function with a visually estimated EF of 20 - 25% (calculated at 25% by Ely Biplane Method). There is grade 2 diastolic dysfunction and pseudonormal diastolic dysfunction. Elevated left ventricular filling pressure with estimated LVEDP around 22 mmHg. ?Left?Atrium: Left atrium size is normal. Saline contrast shows no shunt. ?Right?Ventricle: Right ventricle size is normal. Normal systolic function. ?IVC/SVC: IVC diameter is less than or equal to 21 mm and decreases greater than 50% during inspiration; therefore the estimated right atrial pressure is normal (~0-5 mmHg). ?IVC normal in size and respiratory variation. ?Tricuspid?Valve: Mild transvalvular regurgitation. Right ventricular systolic pressure is 20-25 mmHg. ?Aorta: Mildly enlarged ascending aorta 3.5 cm, index 1.98 cm/m2 (normal in females 1.6 +/- 0.3 cm/m2), consider CT thorax for further evaluation of the aorta. Left VentricleLeft ventricle size is normal. Normal wall thickness. Can not exclude LV thrombus. See diagram for wall motion findings (DD inlcudes myocardial infarction vs. stress takotsubo cardiomyopathy vs. other etiology). Severely reduced systolic function with a visually estimated EF of 20 - 25% (calculated at 25% by Ely Biplane Method). There is grade 2 diastolic dysfunction and pseudonormal diastolic dysfunction. Elevated left ventricular filling pressure with estimated LVEDP around 22 mmHg.Right VentricleRight ventricle size is normal. Normal systolic function.Left AtriumLeft atrium size is normal. Saline contrast shows no shunt.Right AtriumRight atrium size is normal.IVC/SVCIVC diameter is less than or equal to 21 mm and decreases greater than 50% during inspiration; therefore the estimated right atrial pressure is normal (~0-5 mmHg). IVC normal in size and respiratory variation.Mitral ValveMitral valve structure is normal. Trace transvalvular regurgitation. No stenosis.Tricuspid ValveTricuspid valve structure is normal. Mild transvalvular regurgitation. Right ventricular systolic pressure is 20-25 mmHg. No stenosis.Aortic ValveMildly thickened cusps. Mildly calcified cusps. Mild annular calcification.Pulmonic ValveNot well visualized.Ascending AortaMildly enlarged ascending aorta 3.5 cm, index 1.98 cm/m2 (normal in females 1.6 +/- 0.3 cm/m2), consider CT thorax for further evaluation of the aorta.PericardiumThe pericardium is normal. No pericardial effusion.Study DetailsA complete echocardiogram was performed using 2D, color flow Doppler and spectral Doppler. 3 mL of Optison ultrasound enhancing agent used and saline contrast was performed.Wall Scoring BaselineScore Index: 2.35The following segments are akinetic: mid anteroseptal, mid inferoseptal, mid inferolateral, mid anterolateral, apical anterior, apical septal, apical inferior, apical lateral and apex.The following segments are hypokinetic: basal anteroseptal, basal inferoseptal, basal anterolateral, mid anterior and mid inferior.All other segments are normal. [facility] ([facility]E) [id number] 23:52:27* Test Item Value Reference Range Interpretation Comme nts Height (test code = 2974379395) 62 in Weight (test code = 1018029575) 164 lbs Systolic BP (test code = 2591017414) 105 mmHg Diastolic BP (test code = 0640083709) 72 mmHg Heart Rate (test code = 1251738208) 88 bpm BSA (test code = 0058936168) 1.76 m2 Radiology Study observation (narrative) (test code = 25166-6) MAGDA (test code = MAGDA) ?Left?Ventricle: Left ventricle size is normal. Normal wall thickness. Can not exclude LV thrombus. See diagram for wall motion findings (DD inlcudes myocardial infarction vs. stress takotsubo cardiomyopathy vs. other etiology). Severely reduced systolic function with a visually estimated EF of 20 - 25% (calculated at 25% by Ely Biplane Method). There is grade 2 diastolic dysfunction and pseudonormal diastolic dysfunction. Elevated left ventricular filling pressure with estimated LVEDP around 22 mmHg. ?Left?Atrium: Left atrium size is normal. Saline contrast shows no shunt. ?Right?Ventricle: Right ventricle size is normal. Normal systolic function. ?IVC/SVC: IVC diameter is less than or equal to 21 mm and decreases greater than 50% during inspiration; therefore the estimated right atrial pressure is normal (~0-5 mmHg). ?IVC normal in size and respiratory variation. ?Tricuspid?Valve: Mild transvalvular regurgitation. Right ventricular systolic pressure is 20-25 mmHg. ?Aorta: Mildly enlarged ascending aorta 3.5 cm, index 1.98 cm/m2 (normal in females 1.6 +/- 0.3 cm/m2), consider CT thorax for further evaluation of the aorta. Left VentricleLeft ventricle size is normal. Normal wall thickness. Can not exclude LV thrombus. See diagram for wall motion findings (DD inlcudes myocardial infarction vs. stress takotsubo cardiomyopathy vs. other etiology). Severely reduced systolic function with a visually estimated EF of 20 - 25% (calculated at 25% by Ely Biplane Method). There is grade 2 diastolic dysfunction and pseudonormal diastolic dysfunction. Elevated left ventricular filling pressure with estimated LVEDP around 22 mmHg.Right VentricleRight ventricle size is normal. Normal systolic function.Left AtriumLeft atrium size is normal. Saline contrast shows no shunt.Right AtriumRight atrium size is normal.IVC/SVCIVC diameter is less than or equal to 21 mm and decreases greater than 50% during inspiration; therefore the estimated right atrial pressure is normal (~0-5 mmHg). IVC normal in size and respiratory variation.Mitral ValveMitral valve structure is normal. Trace transvalvular regurgitation. No stenosis.Tricuspid ValveTricuspid valve structure is normal. Mild transvalvular regurgitation. Right ventricular systolic pressure is 20-25 mmHg. No stenosis.Aortic ValveMildly thickened cusps. Mildly calcified cusps. Mild annular calcification.Pulmonic ValveNot well visualized.Ascending AortaMildly enlarged ascending aorta 3.5 cm, index 1.98 cm/m2 (normal in females 1.6 +/- 0.3 cm/m2), consider CT thorax for further evaluation of the aorta.PericardiumThe pericardium is normal. No pericardial effusion.Study DetailsA complete echocardiogram was performed using 2D, color flow Doppler and spectral Doppler. 3 mL of Optison ultrasound enhancing agent used and saline contrast was performed.Wall Scoring BaselineScore Index: 2.35The following segments are akinetic: mid anteroseptal, mid inferoseptal, mid inferolateral, mid anterolateral, apical anterior, apical septal, apical inferior, apical lateral and apex.The following segments are hypokinetic: basal anteroseptal, basal inferoseptal, basal anterolateral, mid anterior and mid inferior.All other segments are normal. [facility] GLUCOSE (AUTOMATED)2024-09-28 23:37:17* Test Item Value Reference Range Interpretation Comme [facility] POCT GLU (test code = 5004116604) 143 mg/dL 70-110 H Lab Interpretation (test cod e = 04768-1) Abnormal [facility] GLUCOSE (AUTOMATED)2024-09-28 23:37:17* Test Item Value Reference Range Interpretation Comme nts POCT GLU (test code = 7668512660) 143 mg/dL 70-110 H Lab Interpretation (test cod e = 73580-8) Abnormal [facility] GLUCOSE (AUTOMATED)2024-09-28 21:44:17* Test Item Value Reference Range Interpretation Isabella nts POCT GLU (test code = 0764722961) 109 mg/dL 70-110 Lab Interpretation (test cod e = 41981-3) Normal [facility] GLUCOSE (AUTOMATED)2024-09-28 21:44:17* Test Item Value Reference Range Interpretation Isabella nts POCT GLU (test code = 0269028548) 109 mg/dL 70-110 Lab Interpretation (test cod e = 67700-4) Normal [facility] ACUTE STROKE ANGIOGRAM [id number] 17:45:42FULL RESULT: Examination: CT STROKE ANGIOGRAM NECK, CT STROKE ANGIOGRAM HEAD 09/28/2024 9:08 AM Clinical Indication: Left visual field defect, suspected right [employer] infarct Comparison: Concurrent CT Technique: Arterial phase postcontrast imaging was obtained through theintracranial and cervical vascu lature. Findings: Intracranially there was no high-grade stenosis or occlusion.Specifically the right [employer] OBJECTS CONS[employer]ANT appears unremarkable. With respect to the cervical vasculature, there was no occlusion orhigh-grade stenosis.[facility] ACUTE STROKE ANGIOGRAM [id number] 17:45:42FULL RESULT: Examination: CT STROKE ANGIOGRAM NECK, CT STROKE ANGIOGRAM HEAD 09/28/2024 9:08 AM Clinical Indication: Left visual field defect, suspected right [employer]ANT infarct Comparison: Concurrent CT Technique: Arterial phase postcontrast imaging was obtained through theintracranial and cervical vascu lature. Findings: Intracranially there was no high-grade stenosis or occlusion.Specifically the right [employer] OB[employer]S CONSULTANT appears unremarkable. With respect to the cervical vasculature, there was no occlusion orhigh-grade stenosis.[facility] ACUTE STROKE ANGIOGRAM [id number] 17:45:42FULL RESULT: Examination: CT STROKE ANGIOGRAM NECK, CT STROKE ANGIOGRAM HEAD 09/28/2024 9:08 AM Clinical Indication: Left visual field defect, suspected right [employer]ANT infarct Comparison: Concurrent CT Technique: Arterial phase postcontrast imaging was obtained through theintracranial and cervical vascu lature. Findings: Intracranially there was no high-grade stenosis or occlusion.Specifically the right [employer] OB[employer] CONSULTANT appears unremarkable. With respect to the cervical vasculature, there was no occlusion orhigh-grade stenosis.[facility] ACUTE STROKE ANGIOGRAM [id number] 17:45:42FULL RESULT: Examination: CT STROKE ANGIOGRAM NECK, CT STROKE ANGIOGRAM HEAD on09/28/2024 9:08 AM Clinical Indication: Left visual field defect, suspected right [employer]ANT infarct Comparison: Concurrent CT Technique: Arterial phase postcontrast imaging was obtained through theintracranial and cervical vascu lature. Findings: Intracranially there was no high-grade stenosis or occlusion.Specifically the right [employer] OB[employer] CONSULTANT appears unremarkable. With respect to the cervical vasculature, there was no occlusion orhigh-grade stenosis.[facility] ACUTE STROKE HEAD WO [id number] 16:37:57FULL RESULT: Examination: CT STROKE HEAD WO CONTRAST on 09/28/2024 9:08 AM Clinical Indication: Leftvisual field defect Comparison: None Technique: Noncontrast imaging was obtained from base to vertex. Findings: There is transcortical hypodensity in the right occipital lobewhich I've annotated on images 14-17 of series 2, indicating recentinfarct. Similar but perhaps more chronic findings are seen in the left PCAdistribution. There is no evidence of hemorrhage [facility] ACUTE STROKE HEAD WO [id number] 16:37:57FULL RESULT: Examination: CT STROKE HEAD WO CONTRAST on 09/28/2024 9:08 AM Clinical Indication: Leftvisual field defect Comparison: None Technique: Noncontrast imaging was obtained from base to vertex. Findings: There is transcortical hypodensity in the right occipital lobewhich I've annotated on im ages 14-17 of series 2, indicating recentinfarct. Similar but perhaps more chronic findings are seen in the left PCAdistribution. There is no evidence of hemorrhageUnK[facility]2024-09-28 14:52:46* Test Item Value Reference Range Interpretation Comme nts POCT GLU (test code = 3985213993) 184 mg/dL 70-110 H Lab Interpretation (test cod e = 72164-1) Abnormal [facility] GLUCOSE (AUTOMATED)2024-09-28 14:52:46* Test Item Value Reference Range Interpretation Comme nts POCT GLU (test code = 1396539018) 184 mg/dL 70-110 H Lab Interpretation (test cod e = 30534-5) [facility]normal [facility] 1 [id number] 14:37:17XR CHEST 1 VW HISTORY: ?NSTEMI COMPARISON: None FINDINGS: Loop recorder overlies the heart. ?There is no infiltrate orpleural effusion. ?The cardiomediastinal silhouette is within normallimits. ?There is no pneumothorax.[facility] Chest 1 [id number] 14:37:17XR CHEST 1 VW HISTORY: ?NSTEMI COMPARISON: None FINDINGS: Loop recorder overlies the heart. ?There is no infiltrate orpleural effusion. ?The cardiomediastinal silhouette is within normallimits. ?There is no pneumothorax.[facility] Whole [id number] 06:29:51* Test Item Value Reference Range Interpretation Comme nts LACTIC ACID (test code = 8975295813) 1.40 mmol/L 0.50-2.20 QUES Lab Interpretation (test cod e = 67404-1) Normal [facility] CenterLaoric Acid Whole [id number] 06:29:51* Test Item Value Reference Range Interpretation Comme nts LACTIC ACID (test code = 6481269035) 1.40 mmol/L 0.50-2.20 QUES Lab Interpretation (test cod e = 14852-8) Normal [facility] CenterCOMPREHENSIVE METABOLIC [id number] 15:58:00* Test Item Value Reference Range Interpretation Comme nts SODIUM (test code = NA) 133 mmol/L 134-147 L POTASSIUM (test code = K) 4.8 mmol/L 3.4-5.0 N CHLORIDE (test code = CL) 98 mmol/L 100-108 L CARBON DIOXIDE (test code = CO2) 26 mmol/L 21-32 N ANION GAP (test code = GAP) 9.0 GAP calc 4.0-15.0 N GLUCOSE (test code = GLU) 230 MG/DL 70-110 H BLOOD UREA NITROGEN (test code = BUN) 24 MG/DL 7-18 H GLOMERULAR FILTRATION RATE (test code = GFR) 34 estGFR >60 L The Glomerular Filtration Rate [...] <18 years. CREATININE (test code = CREAT) 1.6 MG/DL 0.6-1.0 H TOTAL PROTEIN (test code = PROT) 7.8 G/DL 6.4-8.2 N ALBUMIN (test code = ALB) 3.9 G/DL 3.4-5.0 N GLOBULIN (test code = GLOB) 3.9 GM/dL ALBUMIN/GLOBULIN RATIO (test code = A/G) 1.0 RATIO 1.2-2.2 L CALCIUM (test code = CA) 9.6 MG/DL 8.5-10.1 N BILIRUBIN TOTAL (test code = BILT) 0.50 MG/DL 0.2-1.2 N SGOT/AST (test code = AST) 25 Unit/L 15-37 N SGPT/ALT (test code = ALT) 37 Unit/L 12-78 N ALKALINE PHOSPHATASE TOTAL (test code = ALKP) 109 Unit/L 45-117 N PROTHROMBIN [id number] 15:52:00* Test Item Value Reference Range Interpretation [...] Infarction (to prevent recurrent infarct). THROMBOPLASTIN TIME [id number] 15:52:00* Test Item Value Reference Range Interpretation Comme nts THROMBOPLASTIN TIME PARTIAL (test code = PTT) 36.9 SECONDS 26-35 H CBC W/AUTO [id number] 15:47:00* Test Item Value Reference Range Interpretation [...] = MDIFF) NO DIFF/SCN CRITERIA COAGULATION TIME [id number] 17:42:00* Test Item Value Reference Range Interpretation Comme nts COAGULATION TIME ACTIVATED ( test code = ACT) 292 SECistat 74-125 H BASIC METABOLIC [id number] 09:30:00* Test Item Value Reference Range Interpretation [...] CA) 8.9 MG/DL 8.5-10.1 N GLUCOSE BEDSIDE [id number] 08:19:00* Test Item Value Reference Range Interpretation Comme nts GLUCOSE BEDSIDE TESTING (latrice t code = GLUBED) 159 mg/dL 70-110 H GLUCOSE BEDSIDE [id number] 17:09:00* Test Item Value Reference Range Interpretation Comme nts GLUCOSE BEDSIDE TESTING (latrice t code = GLUBED) 166 mg/dL 70-110 H COAGULATION TIME [id number] 10:57:00* Test Item Value Reference Range Interpretation Comme nts COAGULATION TIME ACTIVATED ( test code = ACT) 305 SECistat 74-125 H - XR CHEST 1 [id number] 07:51:00 [facility] 1950 Sex: F Name: ANNIE CLAROS [facility] : 1950 Age/S: 72 / F [address] [facility] [place] Unit #: [id number] Loc: [place] [address] Phys: Caitlin Wood MD Acct: [id number] Dis Date: Status[place] [facility] [place] #: [phone] Exam Date: 07/12/2022 5989 FAX #: Reason: PRE OP EXAMS: CPT: [id number] XR CHEST 1 V 31069 Fluoro Time: DAP (Gy m2): Air Kerma [...] CLAROS : 1950 Age/S: 72 / F [address] [address] [place] Unit #: [id number] Loc: [place] [address] Phys: Caitlin Leblanc MD Acct: [id number] Dis Date: Status: REG SDC PHONE #: [phone] Exam Date: 07/12/2022 0790 FAX #: Reason: PRE OP EXAMS: CPT: [id number] XR CHEST 1 V 08357 Fluoro Time: DAP (Gy m2): Air Kerma (mGy): (Continued) Technologist: Tata Serna, RT,(R),(CT) Trnscb Date/Time: 07/12/2022 (075) [email or web address] Orig Print D/T: S: 07/12/2022 (0754) PAGE 2 Signed Report PROTHROMBIN [id number] 14:37:00* Test Item Value Reference Range Interpretation [...] Infarction (to prevent recurrent infarct). THROMBOPLASTIN TIME [id number] 14:37:00* Test Item Value Reference Range Interpretation Comme nts THROMBOPLASTIN TIME PARTIAL (test code = PTT) 31.4 SECONDS 26-35 N BASIC METABOLIC [id number] 13:58:00* Test Item Value Reference Range Interpretation [...] CA) 9.7 MG/DL 8.5-10.1 N CBC W/AUTO [id number] 13:57:00* Test Item Value Reference Range Interpretation [...] = MDIFF) NO DIFF/SCN CRITERIA GLUCOSE BEDSIDE [id number] 11:36:00* Test Item Value Reference Range Interpretation Comme nts GLUCOSE BEDSIDE TESTING (latrice t code = GLUBED) 258 mg/dL 70-110 H BASIC METABOLIC [id number] 09:00:00* Test Item Value Reference Range Interpretation [...] code = CA) 9.8 MG/DL 8.5-10.1 N [id number] 09:00:00* Test Item Value Reference Range Interpretation Comme nts MAGNESIUM (test code = MAG) 1.8 MG/DL 1.8-2.4 N GLUCOSE BEDSIDE [id number] 08:04:00* Test Item Value Reference Range Interpretation Comme nts GLUCOSE BEDSIDE TESTING (latrice t code = GLUBED) 240 mg/dL 70-110 H GLUCOSE BEDSIDE [id number] 20:51:00* Test Item Value Reference Range Interpretation Comme nts GLUCOSE BEDSIDE TESTING (latrice t code = GLUBED) 232 mg/dL 70-110 H GLUCOSE BEDSIDE [id number] 08:24:00* Test Item Value Reference Range Interpretation Comme nts GLUCOSE BEDSIDE TESTING (latrice t code = GLUBED) 207 mg/dL 70-110 H GLYCOSYLATED HEMOGLOBIN [id number] 06:51:00* Test Item Value Reference Range Interpretation Comme nts GLYCOSYLATED HEMOGLOBIN (HA1 C) (test code = GLYHGB) 9.2 % A1C 0.0-5.7 H ESTIMATED AVERAGE GLUCOSE (t est code = EAG) 217 MG/DLest BASIC METABOLIC [id number] 06:42:00* Test Item Value Reference Range Interpretation [...] = LDL) 102 MG/DL 0-129 N <100 [id number] 0 - 129 NEAR OPTIMAL/ABOVE [id number] - 159 [id number] - 189 HIGH>OR= 190 VERY HIGHNOTE THAT GUIDELINES ARE PROVIDED BY NATIONAL CHOLESTEROLEDUCATION PROGRAM ADULT TREATMENT PANEL III LDL/HDL (test code = LDL/HDL) 4.08 Ratio See_Comment H [Automated messa ge] The system which generated this result transmitted reference range: 1.48-3.22 Avg. The reference range was not used to interpret this result as normal/abnormal. [id number] 06:42:00* Test Item Value Reference Range Interpretation Comme nts MAGNESIUM (test code = MAG) 1.4 MG/DL 1.8-2.4 L NT PRO-BRAIN NATRIURETIC [id number] 06:38:00* Test Item Value Reference Range Interpretation Comme nts NT PRO-BRAIN NATRIURETIC PEP TI (test code = PROBNP) 75 PG/ML 0-100 N CBC W/AUTO [id number] 06:23:00* Test Item Value Reference Range Interpretation [...] = MDIFF) NO DIFF/SCN CRITERIA GLUCOSE BEDSIDE [id number] 20:50:00* Test Item Value Reference Range Interpretation Comme nts GLUCOSE BEDSIDE TESTING (latrice t code = GLUBED) 223 mg/dL 70-110 H GLUCOSE BEDSIDE [id number] 16:40:00* Test Item Value Reference Range Interpretation Comme nts GLUCOSE BEDSIDE TESTING (latrice t code = GLUBED) 272 mg/dL 70-110 H - MRI BRAIN W/O [id number] 11:44:00 [facility] 1950 Sex: F FAX: Rosalinda Cr MD Camps: PM St: ADM Name: ANNIE CLAROS [facility] : 1950 Age/S: 71/F [address] Unit #: [id number] Loc: [place] [address] Phys: Rosalinda Cr MD Acct: [id number] Dis Date: Status: ADM IN PHONE #: [phone] Exam Date: 03/15/2022 1137 FAX #: Reason: acute stroke EXAMS: CPT: [id number] MRI BRAIN W/O CONTRAST 85770 EXAM: - MRI BRAIN W/O CONTRAST INDICATION: acute stroke T18 TECHNIQUE: Multiplanar multisequence MR images of the brain were obtained without intravenous contrast. FINDINGS: Intra-axial structures, and extra-axial fluid spaces: No acute or subacute infarct, or in tracranial hemorrhage seen. No mass effect, midline shift [...] MD Technologist: RT Toño(R)(MR) Transcribed Date/Time/By: 03/15/2022 (1144) :[email or web address] Orig Print D/T: S: 03/15/2022 (8314) PAGE 1 Signed Report GLUCOSE BEDSIDE [id number] 10:51:00* Test Item Value Reference Range Interpretation Comme nts GLUCOSE BEDSIDE TESTING (latrice t code = GLUBED) 135 mg/dL 70-110 H UA RFLX MICR CULT IF [id number] 06:07:00* Test Item Value Reference Range Interpretation [...] OF URINE: CLEAN CATCHCOVID 19 Asymptomatic IH [id number] 23:03:00* Test Item Value Reference Range Interpretation Comme nts COVID 19 Asymptomatic IH AG (test code = COVNONPUIAG) NEGATIVE Negative Per soda clerk , negative results should be treated aspresumptive [...] consistent with COVID-19. - XR CHEST 1 [id number] 22:28:00 [facility] 1950 Sex: F Name: ANNIE CLAROS [facility] : 1950 Age/S: 71 / F [address] Unit #: [id number] Loc: [place] [address] Phys: Elina Starks Tanya DO Acct: [id number] Dis Date: Status: REG ER PHONE #: [phone] Exam Date: 03/14/20222208 FAX #: Reason: Code Stroke EXAMS: CPT: [id number] XR CHEST 1V 54774 Fluoro Time: DAP (Gy m2): Air Kerma (mGy): EXAM: Chest x-ray, 1 view Dictation location: H10 COMPARISON: None INDICATION: Code Stroke DISCUSSION: No consolidation, pneumothorax, or pleural effusion is seen. The cardiomediastinal silhouette is within normal limits. No acute bony abnormalities are identified. IMPRESSION: No evidence of acute abnormality. at 8 Reported and signed by: Lm Watts M.D. CC: Elina Starks DO PAGE 1 Signed Report Name: ANNIE CLAROS [facility] : 1950 Age/S: 71 / F [address] [facility] Unit #: [id number] Loc: [place] [address] Phys: Denis Starkssharonda Martínez DO Acct: [id number] Dis Date: Status: REG ER PHONE #: [phone] Exam Date: 03/14/20222208 FAX #: Reason: Code Stroke EXAMS: CPT: [id number] XR CHEST 1 V 93965 Fluoro Time: DAP (Gy m2): Air Kerma (mGy): (Continued) Technologist: Socrates Boone, RT(R) Trnscb Date/Time: 03/14/2022 (2227) [email or web address] Orig Print D/T: S: 03/14/2022 (2231) PAGE 2 Signed Report- CT ANGIO [id number] 22:23:00 [facility] : 1950 Sex: F Name: ANNIE CLAROS [facility] : 1950 Age/S: 71 / F [address] Unit #: [id number] Loc: [place] [address] Phys: Elina Starks DO Acct: [id number] Dis Date: Status: REG ER PHONE #: [phone] Exam Date: 03/14/20222199 FAX #: Reason: expressive aphasia EXAMS: CPT: [id number] CT ANGIO NECK [address] EXAM: CTA head with contrast and CTA neck with contrast Dictation location: H10 INDICA TION: Expressive aphasia COMPARISON: CT head performed earlier the same day TECHNIQUE: Axial 2.5 mmimages of the head and neck were obtained during the arterial phase after the injection of 100 mL Isovue-370 IV contrast. Coronal and sagittal MIP reformats were performed. DISCUSSION: CTA HEAD: Anterior circulation: The upper cervical, petrous, cavernous, and supraclinoid internal carotid arteriesare widely patent. M1 arteries and branches are patent. The A1, anterior communicating, and A2 arteries are patent. No vascular malformation or aneurysm is seen. Posterior circulation: The left vertebral artery appears to be the sole supply to the basilar artery. The right vertebral artery appears d iminutive and terminates at the plica. The vertebral [...] CLAROS : 1950 Age/S: 71 / F [address] Unit #: [id number] Loc: [place] [address] Phys: Elina Starks DO Acct: [id number] Dis Date: Status: REG ER PHONE #: [phone] Exam Date: 03/14/20222199 FAX #: Reason: expressive aphasia EXAMS: CPT: [id number] CT ANGIO NECK [address] (Continued) Other findings: There is no cervical [...] Lm Watts M.D. CC: Elina Starks DO Technologist:RT Juliane(R) CTDI: DLP: Trnscb Date/Time: 03/14/2022 (222) [email or web address] Orig Print D/T: S: 03/14/2022 (6) PAGE 2 Signed Report- CT ANGIO [id number] 22:23:00 [facility] : 1950 Sex: F Name: ANNIE CLAROS [facility] : 1950 Age/S: 71 / F [address] Unit #: [id number] Loc: [place] [address] Phys: Elina Starks DO Acct: [id number] Dis Date: Status: REG ER PHONE #: [phone] Exam Date: 03/14/20222199 FAX #: Reason: expressive aphasia EXAMS: CPT: [id number] CT A NGIO HEAD 21989 EXAM: CTA head with contrast and CTA [...] patent. The A1, anterior communicating, and A2 a rteries are patent. No vascular malformation or aneurysm is seen. Posterior circulation: The left vertebral artery appears to be the sole supply to the basilar artery. The right vertebral artery appears diminutive and terminates at the plica. The vertebral arteries and branches, the basilar arteryand branches, and P1 and P2 arteries are [...] CLAROS : 1950 Age/S: 71 / F [address] Unit #: [id number] Loc: [place] [address] Phys: Elina Starks DO Acct: [id number] Dis Date: Status: REG ER PHONE #: [phone] Exam Date: 03/14/20222199 FAX #: Reason:expressive aphasia EXAMS: CPT: [id number] CT ANGIO HEAD [address]9613 (Continued) Other findings: There is no cervical [...] reduction techniques were used: Automated exposure control, adjustmentof the mA and/or kV according to patient size, and/or utilization of iterative reconstruction technique. DLP: 3040 mGy-cm CTDI: 132 mGy at 2223 Reported and signed by: Lm Watts M.D. CC: Elina Starks DO Technologist:Socrates Boone, RT(R) CTDI: DLP: Trnscb Date/Time: 03/14/2022 (222) [email or web address] Orig Print D/T: S: 03/14/2022 (2226) PAGE 2 Signed ReportBASIC METABOLIC PANEL 2022-03-14 22:15:00* Test Item Value Reference Range Interpretation [...] 8.5-10.1 N Completed by Nursing: NOTROP-I HIGH [id number] 22:15:00* Test Item Value Reference Range Interpretation [...] may varyby method. Completed by Nursing: NOPROTHROMBIN [id number] 22:11:00* Test Item Value Reference Range Interpretation [...] Infarction (to prevent recurrent infarct). THROMBOPLASTIN TIME [id number] 22:11:00* Test Item Value Reference Range Interpretation Comme nts THROMBOPLASTIN TIME PARTIAL (test code = PTT) 31.1 SECONDS 26-35 N CBC W/O [id number] 22:02:00* Test Item Value Reference Range Interpretation [...] fL 7.0-10.5 H - CT HEAD/BRAIN W/O [id number] 22:00:00 [facility] : 1950 Sex: F Name: ANNIE CLAROS [place] : 1950 Age/S: 71 / F [address] Unit #: [id number] Loc: [place] [address] Phys: StarksElina Tanya DO Acct: [id number] Dis Date: Status: PRE ER PHONE #: [phone] Exam Date: 03/14/2022 2150 FAX #: Reason: expressive aphasia EXAMS: CPT: [id number] CT H EAD/BRAIN W/O CONT 90839 Location: CT head, 03/14/22 COMPARISON EXAMS:None of [...] parietal region of concern for a small age- indeterminate vascular insult having a somewhat well-defined margins and more l ikely at least subacute in age. MRI imaging of the helpful for further assessment finding somewhat in a watershed distribution between the left BUSINESS OBJECTS CONSULTANT and MCA territory. No other findings of concern fora vascular insult. IMPRESSION: No territorial infarction or space-occupying process. No intracranial hemorrhage Difficult to age characterize small vascular insult in the left parietal lobe posteriorly medially somewhat in a watershed distribution possibly subacute in age. I have discussed the findings of this code stroke case with Dr. Starks on 03/14/22 at 9:57 PM PAGE 1 Signed Report (CONTINUED) Name: ANNIE CLAROS [place] : 1950 Age/S: 71 / F [address] Unit #: [id number] Loc: [place] [address] Phys: Elina Starks DO Acct: [id number] Dis Date: Status: PRE ERPHONE #: [phone] Exam Date: 03/14/20222149 FAX #: Reason: expressive aphasia EXAMS: CPT: [id number] CT HEAD/BRAIN W/O CONT 36949 (Continued) FOR INTERNAL CODING PURPOSES ONLY RESULT CODE: CVRMD at 2199 Reported and signed by: Adri Hicks M.D. CC: Elina Starks DO Technologist:Socrates Boone, RT(R); Kri CTDI: DLP: Trnscb Date/Time: 03/14/2022 (2199) [email or web address] Orig Print D/T: S: 03/14/2022 (2202) PAGE 2 Signed ReportPOCT GLUCOSE (AUTOMATED)2022-03-01 13:03:23* Test Item Value Reference Range Interpretation Comme nts POCT GLU (test code = 4332355646) 321 mg/dL 70-110 H Lab Interpretation (test cod e = 54297-4) Abnormal [facility] GLUCOSE (AUTOMATED)2022-03-01 13:03:23* Test Item Value Reference Range Interpretation Comme nts POCT GLU (test code = 0117647389) 321 mg/dL 70-110 H Lab Interpretation (test cod e = 31588-9) Abnormal [facility] [id number] 12:47:00* Test Item Value Reference Range Interpretation Comme nts POCT Glu (age>30days) (test code = 3342) 321 mg/dL 70-110 A Lab Interpretation (test cod e = 58792-0) Abnormal [facility] [id number] 12:47:00* Test Item Value Reference Range Interpretation Comme nts POCT Glu (age>30days) (test code = 3342) 321 mg/dL 70-110 A Lab Interpretation (test cod e = 55903-1) Abnormal [facility] GLUCOSE (AUTOMATED)2022-02-15 13:02:47* Test Item Value Reference Range Interpretation Comme nts POCT GLU (test code = 9440568623) 152 mg/dL 70-110 H Lab Interpretation (test cod e = 82290-5) Abnormal [facility] GLUCOSE (AUTOMATED)2022-02-15 13:02:47* Test Item Value Reference Range Interpretation Comme nts POCT GLU (test code = 3584276659) 152 mg/dL 70-110 H Lab Interpretation (test cod e = 37903-1) Abnormal [facility] [id number] 12:58:00* Test Item Value Reference Range Interpretation Comme nts POCT Glu (age>30days) (test code = 3342) 152 mg/dL 70-110 A Lab Interpretation (test cod e = 52755-3) Abnormal [facility] [id number] 12:58:00* Test Item Value Reference Range Interpretation Comme nts POCT Glu (age>30days) (test code = 3342) 152 mg/dL 70-110 A Lab Interpretation (test cod e = 02536-1) [facility],[id number] 00:00:00 * Test Item Value Reference Range Interpretation Comme nts Urine Culture,Comprehensive (test code = 630-4) Final report Consult Notes Date/Time Note Provider Source 2024-09-30 10:49:00 Associated Order(s): CONSULT ADULT PHYSICAL THERAPY Communicated with nurse prior to PT visit, RN cleared patient to participate in therapy. Team contact:IRINEO Mccann Identified patient: and name Patient agreeable to working with physical therapy. Patient in bathroom, brushing teeth, daughter at side. Recommend nursing staff utilize independent, No AD to safely assist patient with mobility out of the bed or chair. PHYSICAL THERAPY EVALUATION Consult received, chart reviewed and evaluation complete this date. Patient is referred to PT for evaluation and treatment. Patient is a 74 year old female who presents to hospital for NSTEMI (non-ST elevated myocardial infarction) [I21.4] . Discharge Recommendations: Therapy Needs and Potential: Patient without any skilled PT needs at this time. Will benefit from out patient PT to improve balance, as patient has h/o falls Challenges to Home Transition: increased risk of falls Equipment recommendations: no device Current Functional Status and/or Treatment: AM-PAC 6 Clicks (Raw Score 0=Dependent, 24=Independent; Low function Raw Score 0= Dependent, 32=Independent): Raw Score - Basic Mobility : 24 T-Scale Score - Basic Mobility : 57.68 Bed Mobility: Supine-sit: Independent Sit to supine: Independent Sitting balance Good Cued no cues required, patient completed the task with good safety Dizziness No Transfers: Sit to stand: Independent using no device Stand to sit: Independent using no device Cued no cues required, assessed the safety awareness, patient demonstrated good safety awareness Dizziness No Ambulation: Assisted patient with ambulation as follows: 600' feet using no device and Independent. Reciprocal gait pattern, no LOB noted Stairs: 2 steps: independent without rail Cued no cues required Dizziness No Therapeutic exercise: patient educated in Fall prevention and Safety awareness., instructed patient in the following: mini-squats, sit to stands, standing marching, standing hip abduction, standing hip extension, standing knee flexion, heel raises, which patient performed x 10 reps each with rest in-between patient/caregiver instructed to perform HEP 3 times per day, 2 x 10 repetitions., and patient/caregiver demonstrates understanding of instructions. Advised to ambulate x 3 daily. After session, patient in bed side chair, daughter at bed side. Call button provided. Notified RN. PLAN OF CARE: PT signs off. See below for complete details. Admit Date: 09/27/2024 Hospital Diagnosis:NSTEMI (non-ST elevated myocardial infarction) [I21.4] PT Diagnosis: none Weight Bearing Precaution: NA General Precautions: Fall, Lines/Tubes,IV peripheral Bracing/Cast present or required:N/A PMH: Past Medical History: Diagnosis Date Arthritis CKD stage G3b/A3, GFR 30 - 44 and albumin creatinine ratio >300 mg/g Diabetes 2010 Gout, arthritis 2010 HLD (hyperlipidemia) 2010 HTN (hypertension) 2009 Migraines Ulcer PSH: Past Surgical History: Procedure Laterality Date BREAST BIOPSY Left 01/03/2022 HYSTERECTOMY 2007 PHACOEMULSIFICATION OF CATARACT WITH INTRAOCULAR LENS IMPLANT Left 02/15/2022 Surgeon: Nicolas Ritter MD; Location: [facility] LOCATION PHACOEMULSIFICATION OF CATARACT WITH INTRAOCULAR LENS IMPLANT Right 03/01/2022 Surgeon: Nicolas Ritter MD; Location: [facility] OR [facility] RADICAL HYSTERECTOMY TONSILLECTOMY PRIOR LIVING SITUATION: in a single story house, with grandson, 2 TERRY DME: Single Point Cane Prior level of Mobility: community ambulation with cane, house hold ambulation Suspected ischemic or hemorraghic stroke:No Subjective: agreed for PT evaluation, Patient/Family Goals: to go home Patient/Family verbalizes understanding of condition: Yes PAIN: denies pain before and after session COMMUNICATION Primary Language: Libyan Able to Verbalize needs: Yes Vision:glasses Hearing:good; no issues reported ORIENTATION/COGNITION: Oriented to: person, place, date/time, and situation Awake: Yes Alert: Yes Dizzy: No Follows Commands: Yes 1-Step Yes Multi-Step Yes Inconsistent: No NEUROLOGICAL Light Touch: within functional limits bilateral LE Heel to partida: intact Tone: WNL BALANCE: Sitting: Static: Good Dynamic: Good Standing: Static: Good Dynamic: Good RANGE OF MOTION: within functional limits bilateral LE STRENGTH: 4-/5 (G-), bilateral LE ENDURANCE: Good, Room air SKIN INTEGRITY: Defer to nursing notes PROBLEM LIST:None ASSESSMENT: Patient is a 74 year old female seen secondary to the above listed diagnosis. No further inpatient PT needs identified at this time. Moderate complexity evaluation justification: Summary: History - 1-2 personal factors/co-morbidities, 3-5 deficits (age, sex, coping styles, social background, education, past and current experience, overall behavior pattern, character and perception of disability) Examination of body system (s) - 3 or more elements addressed (cardiovascular, neuromuscular, musculoskeletal and integumentary systems/elements) Clinical Presentation - Evolving Therefore, clinical decision making (complexity) - Moderate Rehabilitation Potential: NA as no further therapy needs Goals: The following goals are to maximize independence and safety with functional mobility to eventually return to prior living situation and prior functional status. Defer as no PT needs. Treatment Plan: Discharge from PT , Gait training, Gait training on stairs, Therapeutic exercise, Transfer training, Balance training, Bed mobility training, Equipment needs assessment, and Safety education, patient/caregiver education PATIENT EDUCATION: Patient provided with preferred teaching of verbal information on role of PT, plan of care. Shows readiness to learn. Verbal instruction teaching provided. Individual verbalizes understanding of teaching provided. Total Time Tx Codes in Minutes: 10 min Total Treatment Time in Minutes: 19 min Daily Salgado PT, MSPT. OR MOBILE WEB DEVELOPER Daily Salgado PT [facility] 2024-09-30 09:34:00 Associated Order(s): CONSULT ADULT OCCUPATIONAL THERAPY OT GENERAL EVALUATION Consult received via uControl, EMR reviewed and evaluation completed 09/30/24. Patient referred to occupational therapy for evaluation and treatment secondary to NSTEMI (non-ST elevated myocardial infarction). Patient agreeable to participate in occupational therapy. Patient found semireclining in bed and Heels offloaded? No: not required as patient is alert and oriented, as well as exhibits sufficient LE strength and ability to move/reposition LEs/heels throughout the day, Daughter present. Discharge Recommendations: Therapy Needs and Potential:Not applicable as no further skilled acute care OT needs at this time. Challenges to Home Transition:- Requires supervision or verbal cues for BADLS - Requires supervision or verbal cues for IADLS - Limited caregiver availability - Increased risk of falls - Environmental barriers -combo tub/shower Equipment Recommendations: Shower chair vs Tub transfer bench, and Grab bars PLAN OF CARE: Discharge from OT services Precautions: Weight bearing status: NA General: PPE Utilized: Gloves and Fall Bracing: N/A Subjective: Pt found alert and reclining in bed with daughter nearby. Pt very pleasant and willing to work with OT at this time. Current Occupational Performance and/or Treatment: AM-PAC 6 Clicks (Raw Score 0=Dependent, 24=Independent; Low function Raw Score 0= Dependent, 32=Independent): Raw Score - Daily Activity: 22 T-Scale Score - Daily Activity: 47.1 Feeding: Independent, pt reported eating breakfast without assistance. Grooming: Independent, pt washed her hands while standing at sink. Bathing: NT, educated pt on use of shower chair vs tube transfer bench (or built-in bench if able to remodel shower) to prevent falls in the shower. UB Dressing: NT, however pt demonstrated functional ROM to don pullover shirt. LB Dressing: Independent, pt used figure four technique while sitting EOB to don/doff socks. Toilet Transfer: Supervision, pt descended/ascended without assistive device. Functional Mobility: HOB elevated; supine<>sit Independent, sit<>stand Independent without assistive device, ambulation <>bathroom without assistive device. Patient/caregiver educated on: Adaptive equipment , Energy conservation (handout issued/reviewed), Fall prevention (handout issued/reviewed), and Role of OT Patient left semireclining in bed with call barriga in reach. Daughter present. Please, see full evaluation below for more detail. OT EVALUATION: 74 year old female Admit date: 09/27/2024 Date of onset: 09/27/2024 Admit Diagnosis: NSTEMI (non-ST elevated myocardial infarction) [I21.4] OT Diagnosis: Impaired BADL independence, Impaired IADL independence, Decreased endurance, and Impaired self-care mobility PMH: Past Medical History: Diagnosis Date Arthritis CKD stage G3b/A3, GFR 30 - 44 and albumin creatinine ratio >300 mg/g Diabetes 2009 Gout, arthritis 2009 HLD (hyperlipidemia) 2009 HTN (hypertension) 2009 Migraines Ulcer PSH: Past Surgical History: Procedure Laterality Date BREAST BIOPSY Left 01/03/2022 HYSTERECTOMY 2007 PHACOEMULSIFICATION OF CATARACT WITH INTRAOCULAR LENS IMPLANT Left 02/15/2022 Surgeon: Nicolas Ritter MD; Location: [facility] PHACOEMULSIFICATION OF CATARACT WITH INTRAOCULAR LENS IMPLANT Right 03/01/2022 Surgeon: Nicolas Ritter MD; Location: [facility] OR [facility] RADICAL HYSTERECTOMY TONSILLECTOMY PAIN: Denies pain before and after session. OCCUPATIONAL ROLES/HOME ENVIRONMENT: Home environment: Lives with grandson, 05/03 supervision/assistance is not available, and Single story home. She will be staying with daughter for a couple of days following discharge. Bathroom access: Yes Bathroom setup: Combo Occupation(s): Retired Function prior to admission: Household ambulation, Community ambulation, Independent with BADLs, and Independent with IADLs Suspected ischemic or hemorraghic stroke patient: No Equipment prior to admission: Straight Cane PERFORMANCE SKILLS/FACTORS: UE Muscle Tone: bilateral WNL UE ROM: bilateral AROM WFL UE Strength: SARAH UE 4/5 Hand dominance: right Dexterity/Coordination: bilateral Intact Endurance - Sitting: Good Standing: Good Sitting Balance - Static: Good Dynamic: Good Standing: Balance - Static Good Dynamic: Good Dizziness: No Skin Integrity: defer full skin assessment to nursing Sensation: Patient denies numbness and tingling. Oral Motor: WFL and Dentures (top only) Communication: Able to verbalize needs Yes Other: N/A Vision: WFL Yes Other: glasses or contacts Hearing: good; no issues reported COGNITION: Orientation: person, place, date/time, and situation Follows Commands: 1-step Yes Multi-step Yes Inconsistencies No Safety Awareness/Judgment: Good PROBLEM LIST: Decreased independence with I/ADL and Decreased strength/endurance for functional activity REHAB POTENTIAL/PROGNOSIS: NA as no further therapy needs PATIENT/FAMILY GOALS: To feel more balanced when walking TREATMENT/INTERVENTION PLAN: Discharge from OT PATIENT-FAMILY TEACHING Patient and Family member provided with preferred teaching of verbal information, written information, and demonstration on Adaptive equipment , Energy conservation (handout issued/reviewed), Fall prevention (handout issued/reviewed), and Role of OT. Shows readiness to learn. Verbal instruction, Written material, and Demonstration teaching provided. Individual verbalizes understanding of teaching provided. RAMO Thornton, MOT Total Timed Treatment Codes: 10 Min Total Treatment Time: 44 Min Patient Complexity Level Moderate - An occupational therapy evaluation of moderate complexity was completed using the above tests and measures. The following information was obtained: An occupational profile and medical and therapy history, including an expanded review of medical and/or therapy records and additional review of physical, cognitive, or psychosocial history related to current functional performance, Various standardized and non-standardized assessments were used to identify at least 3-5 performance deficits related to physical, cognitive, or psychosocial skills that result in activity limitations and/or participation restrictions, and Clinical decision making of moderate analytic complexity, which includes an analysis of the occupational profile, analysis of data from detailed assessment(s), and consideration of several treatment options. Patient may present with comorbidities that affect occupational performance. Minimal to moderate modification of tasks or assistance (e.g., physical or verbal) with assessment(s) is necessary to enable patient to complete evaluation component. OD Lambert OT [facility] 2024-09-29 16:24:24 Associated Order(s): CONSULT SPEECH Speech-Language Pathology Clinical Swallow Evaluation 09/29/2024 Annie Claros : 1950 Age/Sex: 74 year old female Time IN/OUT: 5814-6796 Referring Physician: Viola Olsen Date of Referral: 09/29/2024 Reason for Referral: dysphagia Date of Admission/Onset: 09/27/24 SUBJECTIVE: Patient awake/alert, agreeable to evaluation. Patient denies dysphagia and eats at regular-textured diet at home. Daughter at bedside. OBJECTIVE: is being seen for a clinical swallow evaluation. Per hospital course, "Annie Claros is a 74 year old female woman with PMHx of stroke (3 years ago), DM2, CKD-III, HTN, HLD, hypothyroidism, CAD, s/p PCI (2021) who was admitted to Cardiology on 09/27/2024 for NSTEMI. Stroke team activated while inpatient on 09/28/2024 for left hand numbness and left visual field defect intermittently for 2 days. LKN 09/26/2024. Exam did not show any visual filed deficits. NIHSS 0. CT Head showed acute/subacute R BUSINESS OBJECTS CONSULTANT and chronic L BUSINESS OBJECTS CONSULTANT infarct. CTA showed no LVO and showed mild bilateral CCA stenosis. MRI brain confirmed the subacute R BUSINESS OBJECTS CONSULTANT infarct along with small punctate R MCA infarct without HT. TTE showed EF of 25% and suspected LV thrombus. Likely etiology cardioembolic. Pending cardiac CT for further confirmation of LV thrombus. Patient has elevated trops and is undergoing LHC given the new onset HFrEF." See chart for further details. Pertinent Imaging: CT Heart w contrast structures and cardiac function (non coronary) Result Date: 09/29/2024 1. Left ventricle mural thrombus measuring 9.4mm in maximum size located in the apex extending into the apical septal wall and mid anteroseptal gómez 2. Left atrial dilation with a patent foramen ovale with left to right shunt without appendage thrombus 3. Coronary artery disease with stent in the left circumflex artery, non-obstructive disease in remaining vessels 4. Normal pericardial thickness with trivial effusion CORONARY ARTERIES: ?Note that this study is not optimized for coronary luminal evaluation Left main coronary artery: Originates off the left coronary cusp. Left anterior descending artery: Originates from the left main bifurcation, supplies diagonal branches Left Circumflex artery: Dominant vessel originating off the left main bifurcation,supplies obtuse marginal branches and posterior descending artery branch Right coronary artery: Originates off the right coronary cusp. Non-dominant vessel, supplies acute marginal branches VENTRICLES: LEFT VENTRICLE: Normal left ventricle size and wall thickness. There is no evidence of ventricular septal defect. Abnormal irregular mass at the apical septal wall extending into the mid anteroseptal wall that persists on delayed phase imaging consistent with left ventricular thrombus RIGHT VENTRICLE: Normal right ventricle size and wall thickness ? ATRIA: LEFT ATRIUM: Dilated size. Patent foramen ovale in the inter-atrial septum with left to right shunt. Wind-sock appendage morphology with no evidence of appendage thrombus. Lipomatous hypertrophy of the inter-atrial septum. Four pulmonary veins emptying into left atrium, no stenosis seen. RIGHT ATRIUM:Normal size with normal emptying of superior vena cava, inferior vena cava and coronary sinus ? VALVES: AORTIC VALVE: Trileaflet Aortic valve MITRAL VALVE: Normal morphology PULMONIC VALVE: Not well visualized TRICUSPID VALVE: Not well visualized ? PERICARDIUM: Normal pericardial thickness and contour with trivial effusion, no calcification ? GREAT VESSELS: AORTA: Normal sized thoracic aorta, calcified atherosclerotic plaques in the aortic arch, no dissection or aneurysms PULMONARY ARTERY: Normal pulmonary artery size without proximal filling defects Please note that this study is optimized with a limited field of view focused on the heart and interpreted by a board-certified Planning Specialist with specialized training in cardiac imaging. Any concern for extra-cardiovascular findings in available limited views of the lungs, mediastinum and upper abdomen should prompt a dedicated Radiology study or consult for that body part to be read by Radiology and an addendum may be added MR Brain wo contrast Result Date: 09/29/2024 Right occipital lobe acute infarct. No midline shift or significant mass effect. No hemorrhagic conversion. Acute punctate infarct at the right precentral gyrus. Small chronic infarct at the left occipital lobe. Punctate chronic infarct at the right middle frontal gyrus. CT ACUTE STROKE ANGIOGRAM HEAD Result Date: 09/28/2024 No definite vascular lesion CT ACUTE STROKE ANGIOGRAM NECK Result Date: 09/28/2024 No definite vascular lesion CT ACUTE STROKE HEAD WO CONTRAST Result Date: 09/28/2024 Subacute right BUSINESS OBJECTS CONSULTANT infarct XR Chest 1 vw Result Date: 09/28/2024 No radiologically significant acute abnormality of the chest. Loop recorder. Ordering physician: ROSALVA OH RL [id number] Previous [employer] Services/Swallow History: None documented. Past Medical History: Diagnosis Date Arthritis CKD stage G3b/A3, GFR 30 - 44 and albumin creatinine ratio >300 mg/g Diabetes 2009 Gout, arthritis 2009 HLD (hyperlipidemia) 2009 HTN (hypertension) 2009 Migraines Ulcer Past Surgical History: Procedure Laterality Date BREAST BIOPSY Left 01/03/2022 HYSTERECTOMY 2007 PHACOEMULSIFICATION OF CATARACT WITH INTRAOCULAR LENS IMPLANT Left 02/15/2022 Surgeon: Nicolas Ritter MD; Location: [facility] OR LOCATION PHACOEMULSIFICATION OF CATARACT WITH INTRAOCULAR LENS IMPLANT Right 03/01/2022 Surgeon: Nicolas Ritter MD; Location: [facility] OR LOCATION RADICAL HYSTERECTOMY TONSILLECTOMY General Behavior: Alert, Calm, and Cooperative Hearing: WFL for speech Respiratory Status: room air Orientation/Cognition: - Patient oriented to: person, place, time, and situation - Response type: verbal - Follows 1-step commands: Yes Current Diet Texture/Means of Nutrition: CLD prior to procedure Oral Motor Exam Dentition and Oral Cavity: natural dentition, moist oral mucosa, and clean oral cavity Face within normal limits and symmetrical Jaw within normal limits and symmetrical Lips within normal limits and symmetrical Tongue within normal limits and midline on protrusion Palate within normal limits and symmetrical Vocal Quality clear Speech clear/intelligible CLINICAL SWALLOW EVALUATION Swallows on command: Yes Handles Secretions: Yes Volitional Cough: Did not test Spontaneous Cough: Yes PO trials were administered by patient. Patient was provided with multiple bites/sips of thin liquid (0), pudding (4), and regular solid (7) consistencies with the following observations: Oral Stage Anterior leakage of bolus not observed Pocketing of bolus not observed Subjectively prolonged oral phase not observed Oral residue not observed Mastication WNL Pharyngeal Stage Subjectively reduced laryngeal elevation not observed Coughing or throat clearing not observed Change in voice quality not observed Multiple swallows subjectively not observed Respiratory sufficiency and coordination WFL - no increased work of breathing and/or oxygen sats and respiratory rate remained stable Report of globus sensation does not report 3 oz water challenge passed Patient/Family/Staff education: Provided verbally. Discussed findings of evaluation, recommendations and [employer] plan of care. Educated about swallow precautions. Patient/family verbalized understanding and is in agreement with plan of care. RN and referring provider notified of findings and recommendations. Patient/Family goal: safe PO intake ASSESSMENT/IMPRESSIONS: Annie Claros presents with: Diagnosis: suspected grossly safe and functional oropharyngeal swallow Etiology of suspected dysphagia/Risk factors for dysphagia: acute/subacute stroke Observations/Complaints: no overt s/sx of aspiration, functional oral stage, and no deficits observed Factors raising concern for aspiration or pharyngeal dysphagia: acute stroke Suspected risk for aspiration: low Factors increasing risk for aspiration-related respiratory complication such as pneumonia: none evident Risk for malnutrition/dehydration or not meeting nutritional needs: unknown Additional comments: Patient appears grossly safe to continue an oral diet. Of note, no dysarthria, aphasia, or cognitive-communication deficits reported by patient or observed by [employer]ING. SLE does not appear indicated at this time. No charge for this screening service d/t no apparent needs/evaluation deferred. *Note: aspiration cannot be ruled out nor confirmed without instrumental assessment/imaging. Prognosis: good for safe po intake due to above findings. RECOMMENDATIONS/GOALS: Diet: Recommend patient advance to a regular (IDDSI level 7)-textured diet with thin liquids (IDDSI level 0) Precautions: - Swallow Precautions: sit fully upright/in chair, remain upright after PO intake, and slow rate of intake - Recommend elevated head of bed and frequent, thorough oral hygiene care due to possible risk for aspiration. - Recommend patient be closely monitored for s/sx of aspiration or signs of a developing respiratory infection or worsening respiratory status (i.e. throat clearing/coughing with po, wet/gurgled voice, fever spikes 30-60 mins after meals, increased chest congestion, leukocytosis, increased O2 requirements, etc.). If observed or suspected, recommend pt be made NPO pending [employer] re-assessment. Instrumental Swallow Assessment: - Not indicated at this time. Additional Referrals: - None evident at this time. Continued LAB[employer]ER [employer] services: No further acute LAB[employer]ER CHEM[employer]ESSING services indicated at this time, so service is signing off. Please re-consult if indicated. Thank you. Discharge Recommendations: - Defer to PT/OT and/or medical team. Yajaira Day MA, [facility]-LAB[employer]ER [employer] PROCESSING Speech-Language Pathologist Office [phone] Pager: [phone] [facility] 2024-09-28 09:45:08 STROKE SERVICE CONSULT DATE OF SERVICE: 09/28/2024 10:10 REASON FOR CONSULT: left vision field defect and left finger numbness. HISTORY OF PRESENT ILLNESS Annie Claros is a 74 year old woman with PMHX of stroke (3 years ago), DM-II, CKD-III, HTN, HLD, hypothyroidism, CAD s/p PCI (2021), who was admitted to cardiology on 09/27/2024 for NSTEMI. Stroke activated while inpatient on 09/28/2024 for left hand numbness and left visual field defect intermittently for 2 days (LSN >4.5 hours). The patient and her daughter report she visited [facility] on Sunday09/26/2024 for the same symptoms (left hand numbness and "fuzzy vision" over whole visual field). [facility]. The patient reports she got the MRI while she still had symptoms but was told it was negative. Reports she was sent home on her home meds (aspirin 81 mg, plavix 75 mg, lipitor 40 mg). She started having the symptoms again yesterday and presented to the ER where she was found to have NSTEMI and admitted to cardiology and started on heparin drip. Today morning, she complained that the fuzzy vision is now on the left visual field only as a back spot, prompting the stroke activation but reports she already had it since symptom onset. Antiplatelets: Yes aspirin 81 mg and plavix 75 mg daily Anticoagulations: No (was on heparin drip since admission yesterday but not on AC at home) Tobacco abuse: No Alcohol abuse: No Drug abuse: No Previous stroke: Yes MRI 09/26/2024 at [facility] showed remote left occipital stroke. Body mass index is 29.99 kg/m?. STROKE DOCUMENTATION Stroke Activation - Date: 09/28/24 Stroke Activation - Time: 903 Physician arrival at bedside - Date: 09/28/24 Physician arrival at bedside - Time: 909 CT-Head without contrast read by Neurology: 0920 Last seen normal: Last known well - Date: 09/26/24 Last known well - Time: 1300 Wake up stroke: No NIH STROKE SCALE NIHSS TOTAL: 0 NIHSS Interval: Admission LOC: 0 Alert: Keenly Responsive LOC QUESTIONS: 0 Answers Both Questions Correctly LOC COMMANDS: 0 Performs Both Tasks Correctly BEST GAZE: 0 Normal VISUAL: 0 No Visual Loss (Complains of a left VF black spot when she looks at her phone but VF testing with confrontation negative.) FACIAL PALSY: 0 Normal MOTOR ARM-LEFT: 0 No Drift MOTOR ARM-RIGHT: 0 No Drift MOTOR LEG-LEFT: 0 No Drift MOTOR LEG-RIGHT: 0 No Drift LIMB ATAXIA: 0 Absent SENSORY: 0 Normal BEST LANGUAGE: 0 No Aphasia DYSARTHRIA: 0 Normal EXTINCTION AND INATTENTION (FORMERLY NEGLECT): 0 No Abnormalty Dysphagia Screen: IV Tenecteplase: Was IV thrombolytic therapy given?: No Reason no IV thrombolytic therapy initiated: Arrival > 4.5 hours from symptom onset If IV Thrombolytic therapy was indicated and given as a standard of care was the patient/family informed of benefits of treatment and risk such as hemorrhage and/or angioedema?: (not recorded) Was there a delay in door to IV thrombolytic over 30 minutes?: (not recorded) Reason (s): (not recorded) ICH/SAH ICH/SAH: No Endovascular Intervention: Was Endovascular Intervention Performed?: No Reason patient is not a candidate for endovascular intervention: Imaging: no large vessel occlusion PRE- ADMISSION MODIFIED REID SCORE 0 - No symptoms at all PAST MEDICAL HISTORY Past Medical History: Diagnosis Date Arthritis CKD stage G3b/A3, GFR 30 - 44 and albumin creatinine ratio >300 mg/g Diabetes 2010 Gout, arthritis 2009 HLD (hyperlipidemia) 2009 HTN (hypertension) 2009 Migraines Ulcer PAST SURGICAL HISTORY Past Surgical History: Procedure Laterality Date BREAST BIOPSY Left 01/03/2022 HYSTERECTOMY 2007 PHACOEMULSIFICATION OF CATARACT WITH INTRAOCULAR LENS IMPLANT Left 02/15/2022 Surgeon: Nicolas Ritter MD; Location: [facility] OR [facility] PHACOEMULSIFICATION OF CATARACT WITH INTRAOCULAR LENS IMPLANT Right 03/01/2022 Surgeon: Nicolas Ritter MD; Location: [facility] OR [facility] RADICAL HYSTERECTOMY TONSILLECTOMY FAMILY HISTORY Family History Problem Relation Age of Onset Diabetes Sister Diabetes Sister Arthritis Maternal Uncle Coronary Heart Disease Father , 60's Coronary Heart Disease Sister , 62 Hypertension Sister Hypertension Sister Stroke Father Other - see comments Mother , 54 head injury SOCIAL HISTORY Social History Socioeconomic History Marital status: Occupational History 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 She"s retired. She doesn't get routine exercise. Reviewed patient's family, surgical and social hx. HOME MEDICATIONS Medications Prior to Admission Medication Sig Dispense Refill Last Dose clopidogreL (PLAVIX) 75 mg tablet Take 1 tablet by mouth in the morning. ergocalciferol, vitamin D2, (VITAMIN D ORAL) Take 1,000 mg by mouth in the morning. glipiZIDE 2.5 mg Tab Take 2.5 mg by mouth in the morning. isosorbide mononitrate (IMDUR ORAL) Take 30 mg by mouth in the morning. carvediloL 6.25 mg tablet 1 tablet with food Diclofenac Sodium 1 % gel Apply 1 Applicator to area(s) as needed. famotidine 20 mg tablet Take 1 tablet by mouth in the morning. insulin glargine,hum.rec.anlog (LANTUS SC) inject 30 Units under the skin every morning. Each morning blood sugar diagnostic (FREESTYLE LITE STRIPS) strip Use as directed, BID, Dx;E11.9 150 Strip 1 Blood-Glucose Meter (FREESTYLE LITE METER) Kit Use as directed, DX:E11.9 1 Kit 0 allopurinol (ZYLOPRIM) 100 mg tablet Take 2 tablets by mouth daily. (Patient taking differently: Take 1 tablet by mouth in the morning.) 180 tablet 3 lisinopril (PRINIVIL,ZESTRIL) 5 mg tablet Take 1 tablet by mouth daily. (Patient taking differently: Take 2 tablets by mouth in the morning.) 90 tablet 3 nitroglycerin (NITROSTAT) 0.[address] 1 tablet under the tongue every 5 (five) minutes as needed for Chest pain. 1 Bottle 1 ASPIRIN 81 MG ORAL TAB Take 1 tablet by mouth in the morning. [DISCONTINUED] aspirin (ASPIR-81) 81 mg EC tablet 1 tablet [DISCONTINUED] atorvastatin 40 mg tablet Take 1 tablet by mouth at bedtime. [DISCONTINUED] estradioL (ESTRACE) 0.01 % (0.1 mg/gram) vaginal cream 2 gram per vaginal [DISCONTINUED] linaGLIPtin (TRADJENTA) 5 mg tablet 1 tablet [DISCONTINUED] Magnesium Oxide 500 mg Cap as directed [DISCONTINUED] pantoprazole 40 mg EC tablet 1 tablet [DISCONTINUED] prednisoLONE acetate 1 % ophthalmic suspension drops 1 drop into affected eye (Patient not taking: Reported on 04/09/2022) Not Taking [DISCONTINUED] SITagliptin 100 mg tablet 1 tablet (Patient not taking: Reported on 04/09/2022) Not Taking [DISCONTINUED] omeprazole 20 mg capsule Take 20 mg by mouth in the morning and 20 mg in the evening. [DISCONTINUED] cetirizine 10 mg tablet Take 10 mg by mouth daily. [DISCONTINUED] fluticasone propionate 50 mcg/actuation nasal spray Use 2 Sprays in each nostril daily. [DISCONTINUED] triamcinolone acetonide 0.1 % cream Apply 1 Applicator to area(s) 2 (two) times daily as needed. [DISCONTINUED] metoprolol tartrate 25 mg tablet Take 0.5 tablets by mouth 2 (two) times daily. (Patient not taking: Reported on 04/09/2022) 90 tablet 0 Not Taking [DISCONTINUED] colchicine (COLCRYS) 0.6 mg tablet Take 1 tablet by mouth daily. (Patient taking differently: Take 0.6 mg by mouth in the morning. As needed) 6 tablet 0 [DISCONTINUED] SUCRALFATE 1 gram tablet TAKE ONE TABLET BY MOUTH BEFORE MEALS AND AT BEDTIME 60 tablet 0 levothyroxine 50 mcg tablet Take 50 mcg by mouth every morning. 03/01/2022 [DISCONTINUED] glimepiride 1 mg tablet Take 1 tablet by mouth daily with breakfast. 90 tablet 1 not taking [DISCONTINUED] traMADOL (ULTRAM) 50 mg tablet Take 1 tablet by mouth every 6 (six) hours as needed for Pain (scale 4-6). Davin Bowling PA-C / Eliel Bejarano MD JOLANTA# [id number] DPS# [id number] Ma Lic.# [id number] NPI# [id number] 20 tablet 0 not taking [DISCONTINUED] lovastatin (MEVACOR) 20 mg tablet Take 2 tablets by mouth at bedtime. (Patient not taking: Reported on 04/09/2022) 180 tablet 3 Not Taking [DISCONTINUED] acetaminophen-codeine (TYLENOL #3) 300-30 mg tablet Take 1 tablet by mouth at bedtime. 30 tablet 3 not taking [DISCONTINUED] chlorhexidine (PERIDEX) 0.12 % mouthwash Swish and spit out 15 mL 2 (two) times daily. 480 mL 5 [DISCONTINUED] albuterol (VENTOLIN HFA) 90 mcg/actuation inhaler Inhale 2 Puffs every 6 (six) hours as needed for Wheezing or Shortness of Breath. 8.5 g 0 not taking HOSPITAL MEDICATIONS Current Facility-Administered Medications Medication Dose Route Frequency Last Rate Last Admin NaCl 0.9% (NS) injection 5 mL 5 mL Slow IV Push PRN - SEE INSTRUCTIONS acetaminophen (TYLENOL) tablet 650 mg 650 mg Oral Q6HPRN allopurinoL (ZYLOPRIM) tablet 100 mg 100 mg Oral DAILY 100 mg at 09/28/24 0900 aspirin EC tablet 81 mg 81 mg Oral DAILY 81 mg at 09/28/24 0900 atorvastatin (LIPITOR) tablet 80 mg 80 mg Oral QHS carvediloL (COREG) tablet 6.25 mg 6.25 mg Oral BID MEALS 6.25 mg at 09/28/24 0900 clopidogreL (PLAVIX) 75 mg tablet 75 mg 75 mg Oral DAILY 75 mg at 09/28/24 09 dextrose 50 % in water (D50W) injection 25 mL 25 mL Slow IV Push PRN glucagon HCL injection 1 mg 1 mg Intramuscular PRN heparin (1,000 unit/mL, 10 mL vial) for Rebolusing 3,000-5,000 Units Slow IV Push FOR REBOLUSING insulin glargine (LANTUS U-100) injection 24 Units 24 Units Subcutaneous DAILY 24 Units at 09/28/24 0859 isosorbide mononitrate (IMDUR) 24 hr tablet 30 mg 30 mg Oral DAILY 30 mg at 09/28/24 0900 levothyroxine (SYNTHROID) tablet 50 mcg 50 mcg Oral QAM-0600 50 mcg at 09/28/24 0606 lisinopriL (PRINIVIL,ZESTRIL) tablet 10 mg 10 mg Oral DAILY 10 mg at 09/28/24 0900 nitroglycerin (NITROSTAT) sublingual tablet 0.4 mg 0.4 mg Sublingual Q5MIN PRN Sliding Scale Insulin - Lispro (HumaLOG) Subcutaneous TID MEALS+HS 1 Units at 09/28/24 0800 ALLERGY Allergies Allergen Reactions Penicillin [Penicillins] Rash REVIEW OF SYSTEMS General: (-) fever, (-) chills, (-) weight change, (-) dizziness, (-) fatigue, (-) change in appetite Skin: (-) rash, (-) lesion HEENT: (-) headache, (-) change in hearing, (-) change in vision, (-) nasal discharge, (-) sore throat Neck: (-) pain, (-) difficulty swallowing, (-) mass Heme: (-) bleeding disorder Resp: (-) cough, (-) shortness of breath, (-) dyspnea on exertion Cardio: (-) chest pain, (-) palpitations, (-) syncope GI: (-) abdominal pain, (-) nausea, (-) vomiting, (-) diarrhea, (-) constipation, (-) melena, (-) hematochezia, (-) hematemesis : (-) dysuria, (-) hematuria, (-) increased frequency, (-) difficulty urinating, (-) difficulty initiating Endo: (-) heat intolerance, (-) diabetes, (-) cold intolerance, (-) polyuria, (-) polydipsia, (-) renal insufficiency, (-) thyroid disease Neuro: (-) numbness, (-) tingling, (-) weakness Back: (-) pain, (-) spasms CESAR: (-) muscle pain, (-) joint pain, (-) claudication Psych: (-) anxiety, (-) depression, (-) psychiatric disorder PHYSICAL EXAM Vitals: 09/28/24 0718 09/28/24 0910 09/28/24 0920 09/28/24 0930 BP: 119/81 135/88 130/71 BP Location: Left arm Patient Position: Supine Pulse: 87 101 94 98 Resp: Temp: 36.9 ?C (98.5 ?F) TempSrc: SpO2: 96% 98% 98% 98% Weight: General: Well appearing. Dressed in hospital gowns. No apparent distress. Mental Status: Alert and oriented x4 (person, place, time, and situation). Consciousness, attention, concentration: normal, Stays focused and on task while being questioned. Language: intact to comprehension, fluency, repetition and naming. Fund of knowledge: is congruent with level of education. Remote and recent memory: normal. Cranial Nerves: I. Not tested. II. Symmetric, equally reactive pupils. Field of vision intact to confrontation in either of the four quadrants. Complains of a black spot in her left visual field. III. IV., . Extraocular movements intact without nystagmus . V. Normal sensation bilaterally in V1-3 distributions. VII. No facial droop noted. VIII. Hearing intact to finger rubbing in either ear. IX., X. Palatal elevation normal symmetrically. XI. Normal strength of sternocleidomastoid and trapezius muscles bilaterally. XII. Tongue in midline. Motor system: Tone: normal Bulk: normal Strength Right Left Deltoid 5 5 Biceps 5 5 Triceps 5 5 Wrist extensors 5 5 Interossei 5 5 Hip flexors 5 5 Knee flexors (hamstring) 5 5 Knee extensors (quadriceps) 5 5 Ankle dorsiflexors 5 5 Ankle plantar flexors 5 5 Deep Tendon Reflexes Right Left Biceps 2+ 2+ Triceps 2+ 2+ Brachioradialis 2+ 2+ Patella 2+ 2+ Achilles 1+ 1+ Pathologic reflexes and signs: Ankle clonus: absent Reese's sign: negative bilaterally. Plantar response: mute bilaterally Cerebellum: Negative: tremors, nystagmus, rapid alternating movements, [id number] testing, mysd-lk-[id number] testing Sensory system: Light touch: Intact Pinprick/temperature: Intact Joint position/vibration: Intact Pattern of sensory impairment: Intact Gait: Deferred. General examination: HEENT: moist mucus membranes. Clear oropharynx. Lungs: normal breath sounds. No abnormal sounds. Cardio: normal heart sounds. No added sounds. Extremities: no cyanosis, clubbing or edema. Neck: supple. No carotid bruit or JVD. Abdomen: normal contour. Soft, non-tender to palpation. Normoactive bowel sounds. LABS, RADIOLOGY, ELECTROPHYSIOLOGY Relevant labs: Troponin 2.15, Na 134, K 4.6, Cr 1.5, GFR 36.9, WBC 8.76, HGB 10.3, PLT 174. MRI brain ([facility]): MRI BRAIN WITHOUT CONTRAST CLINICAL INDICATION: TIA TECHNIQUE: Multiplanar multisequence MR images of the brain were obtained without intravenous contrast. Unless otherwise specified, incidental findings do not require dedicated imaging follow- up. COMPARISON: Recent FINANCE SPECIALIST imaging FINDINGS: INTRACRANIAL: There is significant artifact from dental hardware limiting the study. No evidence of CVA seen within the limitations. No space-occupying lesion or midline shift. No hydrocephalus. No hemorrhage. Small focus of gliosis left occipital lobe likely remote infarct. CT head (09/28/2024): Pending read. Acute/subacute right occipital infarct. Remote left occipital infarct. CTA head and neck (date): Pending read. No LVO. Mild bilateral CCA stenosis with hard plaque. ASSESSMENT AND PLAN Annie Claros is a 74 year old woman with PMHX of stroke (3 years ago), DM-II, CKD-III, HTN, HLD, hypothyroidism, CAD s/p PCI (2021), who was admitted to cardiology on 09/27/2024 for NSTEMI. Stroke activated while inpatient on 09/28/2024 for left hand numbness and left visual field defect intermittently for 2 days. The new symptom is left black spot but she already had fuzziness of all her vision for 2 days. The black spot started >4.5 hours ago as well. She is not a candidate for TNK or thrombectomy. CTH showed acute/subacute right occipital small stroke and remote left occipital stroke. CTA showed no LVO and showed mild bilateral CCA stenosis with a hard plaque. She was on heparin ggt that was held d/t concern for stroke. Her symptoms started 2 days ago and the stroke is small and supratentorial on CTH. Obtaining an MRI to confirm the true size of the stroke is ideal but the risk and benefit of resuming heparin for her NSTEMI should be weighed if need to resume early (before the MRI). The stroke etiology is likely NSTEMI but she had a prior left occipital stroke so, would like to rule out other cardioembolic causes such as LV thrombus or Afib. Anatomic localization: right occipital, likely also thalamic (sensory changes) Stroke etiology: Cardio-embolic Acute/subacute right occipital ischemic stroke NSTEMI requiring heparin treatment Remote left occipital stroke - Q4H Neurochecks - Obtain MRI brain without contrast - It is likely safe to resume heparin if needed before MRI brain - Continue aspirin 81 mg and plavix 75 mg daily - Continue lipitor 40 mg nightly - <220/110 for ischemic stroke first 24h, then resume home anti-hypertensive medications for goal normo-tension - Obtain CBC, BMP, fasting Lipid panel, HgA1c, TSH, PT, PTT, Troponin x 1, EKG - Telemetry monitoring - Sliding scale of insulin - Avoid hyperthermia, pain and constipation - Fall precautions - Consult PT/OT/ Speech pathology/Primary swallowing screen - Wharf Builder on stroke education, smoking cessation, healthy diet, physical activity, weight loss Imaging: - TTE w/ bubble study Case seen and discussed with John Coto MD, Vascular Neurology Faculty Hang Murray MD Neurology resident OR MOBILE WEB DEVELOPER Associated attestation - John Coto MD - 09/28/2024 12:31 PM SENIOR MOBILE WEB DEVELOPER I personally examined the patient and agree with the history, physical, assessment and plan as documented in Dr. Murray's resident note, including any changes or additions that the resident may have made to the medical student's note, with the following highlights, additions and addendums. 74 year old female with PMH of stroke 3 years ago, DM II, HTN, HLD, CKD, CAD s/p PCI who presented to the hospital on 09/27/24 and was found to have an NSTEMI. Workup also showed a R occipital lobe infarct after CT head w/o contrast was done due to some R peripheral vision issues patient was complaining about. Etiology of stroke suspicious for being cardioembolic in nature. NIH is currently 0. Recommend TTE with bubble as well as interrogation of ILR as patient states she had one placed a while back. John Coto MD Vascular Neurology NEUROLOGY [facility] - Health History and Physical Notes Date/Time Note Provider Source 2024-10-01 07:19:31 Pre-Procedure Sedation Evaluation H&P from admission reviewed. No changes noted.Allergies were reviewed. NPO Status Solids: >8 hours Clear liquids: >2 hours History History of anesthesia/sedation complications: No History of difficult airway: No History of neck problems, craniofacial abnormalities, head/neck surgery: No Increased risk for airway obstruction, sleep apnea, morbid obesity: No Focused Physical Exam Heart: documented in H&P Normal Lung: documented in H&P Normal Airway Mallampati: III (only soft palate and only base of uvula) Mouth opening: Normal Range of motion neck: Normal Dentition: Dentures Assessment: ASA 3 Plan: Moderate sedation The risks, benefits, and treatment options of sedation were discussed with the patient/guardian and they desire to proceed. The consent form was completed and signed. Sukh Dupont MD Fellow, Cardiovascular Disease [facility] OR MOBILE WEB DEVELOPER Associated attestation - Jeremiah Molina MD - 10/01/2024 7:25 AM SENIOR MOBILE WEB DEVELOPER Agree CARDIOVASCULAR DISEASE [facility] 2024-09-27 21:05:08 White Team Admit H&P Date of Service: 09/27/2024 23:36 Name: Annie Claros : 1950 Chief Complaint: Chest Pressure History of Present Illness: Annie Claros is a 74 year old female with a PMH of unspecified CVA 3 years ago, insulin-dependent type 2 DM, CKD stage III, hyperlipidemia, gout, hypothyroidism, and CAD s/p PCI Lcx w 2 PATRICK (07/13/2022) d/t Stable Angina and positive stress test who presented as a transfer from [facility] with CC of chest pressure. Patient initially presented to [facility] with numbness and tingling in her left upper extremity where an MRI brain and CT angiogram of her head and neck were obtained to rule out an acute CVA; however, these imaging modalities did not reveal an acute stroke. During her stay at [facility], she complained of a chest pressure that was substernally located and did not radiate that was a 5 out of 10 in intensity. It woke her up from rest. 1 week prior to her hospitalization, she was ambulatory without any dyspnea on exertion chest pressure, palpitations, abdominal pain, or presyncopal symptoms. She further denies any orthopnea, PND, or lower extremity edema. She has a history of PCI in 2021 due to a positive stress test. PATRICK x 2 were placed in her circumflex. She has been on Plavix and aspirin which she states he is compliant with. Labs at [facility] were significant for creatinine 1.83 (eGFR 29), hemoglobin 11.1, platelets 180, troponin high-sensitivity 2942.6 (reference range normal <58.9). CXR was obtained and was normal. ECG showed NSR ~75bpm, nml axis, GRWP, no ST depressions/eelvations or TWI, no q-waves. She was loaded with aspirin, heparin, Plavix 300 mg, and continued on a heparin drip while transferred to [facility]. Upon arrival to [facility], she was AF, BP 132/84 mmHg, P 85 bpm regular, RR 20, SpO2 100% on RA. EKG revealed NSR, nml axis, GWRP, no acute ST/T wave changes. She did not have any chest pressure since her occurrence at OSH. 07/13/2022:Coronary Anatomy -Left main: Angiographically normal -LAD: Patent with minimal luminal irregularities -Left circumflex: Large dominant vessel, OM1 is patent. At the ostium of the OM there is a focal 80-90% stenosis. OM 2 is patent. RPDA is patent. -Right coronary artery: Small nondominant. Paten 03/16/2022 COURT: Left ventricle: The cavity size is normal. Right ventricle: The cavity size is normal. Left atrium: There is no evidence of a thrombus in the atrial cavity or appendage. Right atrium: The atrium is normal in size. Atrial septum: There is a small patent foramen ovale. Doppler in the Aorta: The aortic root is not dilated. [...] regurgitation. Pericardium: There is no pericardial effusion. TTE: 03/15/2022: Left atrium: The atrium is normal in size. Right atrium: The atrium is normal in size. Atrial septum: There is a possible patent foramen ovale. Agitated saline contrast study shows a [id number] shunt. Aortic valve: The valve is structurally [...] The vessel is normal in size. Measurements in TTE: Left ventricle Value Ref ALISON, LAX 4.6 [...] --------- Peak v, S 1.56 m/sec --------- Mean v, S 1.14 m/sec --------- VTI, [...] Value Ref A rev duration 131 ms ------- Past Medical History: Past Medical History: Diagnosis Date Arthritis CKD stage G3b/A3, GFR 30 - 44 and albumin creatinine ratio >300 mg/g Diabetes 2010 Gout, arthritis 2010 HLD (hyperlipidemia) 2010 HTN (hypertension) 2010 Migraines Ulcer Past Surgical History: Past Surgical History: Procedure Laterality Date BREAST BIOPSY Left 01/03/2022 HYSTERECTOMY 2007 PHACOEMULSIFICATION OF CATARACT WITH INTRAOCULAR LENS IMPLANT Left 02/15/2022 Surgeon: Nicolas Ritter MD; Location: [facility] [place] PHACOEMULSIFICATION OF CATARACT WITH INTRAOCULAR LENS IMPLANT Right 03/01/2022 Surgeon: Nicolas Ritter MD; Location: [facility] [place] RADICAL HYSTERECTOMY TONSILLECTOMY Family History: Family History Problem Relation Age of Onset Diabetes Sister Diabetes Sister Arthritis Maternal Uncle Coronary Heart Disease Father , 60's Coronary Heart Disease Sister , 62 Hypertension Sister Hypertension Sister Stroke Father Other - see comments Mother , 54 head injury Social History: Social History Socioeconomic History Marital status: Occupational History 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 She"s retired. She doesn't get routine exercise. Allergies: Allergies Allergen Reactions Penicillin [Penicillins] Rash Review of Systems: (-)=Negative, (+)=Positive See HPI Physical Examination: Temp: [36.6 ?C (97.9 ?F)] Pulse: [85] Resp: [20] BP: (132)/(84) MAP (mmHg): [100] General: NAD HEENT: NCAT, moist mucus membranes Neck: no JVD Cardio: RRR, no mgr Resp: Clear bilaterally Abd: flat, NABS, no TTP Extremities: warm, no edema, 2+ distal pulses Neuro: No focal deficits Psych: Nml affect and speech Labs (reviewed): reviewed EKG (reviewed): See HPI Imaging (reviewed): reviewed Old Studies: See HPI Chart Review: See HPI Assessment and Plan: Annie Claros is a 74 year old female with a past medical history as listed above admitted with the following problems: NSTEMI likely Type I (LAKHWINDER 5, KIP 119) CAD s/p PCI Lcx w 2 PATRICK H/o CVA (3 years ago) Insulin-dependent type 2 DM CKD stage III HTN/HLD Presenting with chest pressure with significantly elevated troponin likely type I NSTEMI with high LAKHWINDER score, in the setting of risk factors, including PCI in 2021 of left circumflex, insulin-dependent type 2, and CKD, older age, and female sex. Patient will need angiography, will need to give continuous fluid prior and post cath given CKD. Will continue to trend troponin while given AC via UFH drip. Urine studies to assess for proteinuria. - White Team - Trop Trend q4h - ECG q4h + continuous Tele - cw ASA 81 + Plavix 75mg daily + hep gtt - increase home statin to 80mg daily - NTproBNP + Lactic - TTE - U protein, U Cr, U microalbumin, SGLT2i on dc (decreases proteinuria) - cw home Coreg Gout Hypothyroidism Stable. -cw home meds Pain: NA Prophylaxis: DVT - UFH gtt Stress Ulcer: NA Code Status: Full Edurada Garcia MD Internal Medicine Scheduled meds: [START ON 09/28/2024] allopurinoL, 100 mg, DAILY [START ON 09/28/2024] aspirin, 81 mg, DAILY [START ON 09/28/2024] atorvastatin, 80 mg, QHS [START ON 09/28/2024] carvediloL, 6.25 mg, BID MEALS [START ON 09/28/2024] clopidogreL, 75 mg, DAILY [START ON 09/28/2024] insulin glargine, 24 Units, DAILY [START ON 09/28/2024] isosorbide mononitrate, 30 mg, DAILY [START ON 09/28/2024] levothyroxine, 50 mcg, QAM-0600 [START ON 09/28/2024] lisinopriL, 10 mg, DAILY [START ON 09/28/2024] insulin lispro (human), , TID MEALS+HS IV meds: heparin 25,000 Units/250 mL IV infusion (NON-WEIGHT BASED), Last Rate: 1,000 Units/hr (09/27/242) PRN meds: acetaminophen, 650 mg, Q6HPRN dextrose 50 % in water (D50W), 25 mL, PRN glucagon, 1 mg, PRN heparin 1000 unit/mL, 3,000-5,000 Units, FOR REBOLUSING nitroglycerin, 0.4 mg, Q5MIN PRN OR MOBILE WEB DEVELOPER Associated attestation - Rosalva Oh MD - 09/28/2024 3:45 PM SENIOR MOBILE WEB DEVELOPER I personally saw and examined the patient, reviewed labs, imaging, and procedure results. I actively participated in the decision-making process. Patient with past medical history of CVA, diabetes mellitus, occlusive coronary artery disease status post PCI to left circumflex in July 2022, CKD IIIb, who presented with chest pain was found to have NSTEMI with troponin of 2 started on heparin drip loaded with aspirin with the initial plan to get TTE to evaluate cardiac structure and function and proceed with coronary angiography plus minus stenting on 09/29/2024. During the morning of 09/28/2024 the patient reported visual impairment, code stroke was activated, CT scan of the brain showed subacute infarction, heparin drip was discontinued, neurology on board, we will need completion of stroke workup (including brain MRI) and neurological risk assessment for benefit/risks of being back on heparin drip and/or DAPT before proceeding with coronary angiography plus minus stenting. Also give 500 cc NS in case the patient goes for procedure given her CKD. Medical impression and management recommendations were explained to the patient who verbalized understanding and agreeing to proceed with the plan as outlined above. Please see the resident's note for additional details. I saw the patient on 09/28/2024. Rosalva Oh MD Lining Cleaner Department of Internal Medicine Division of Cardiovascular Medicine [facility] Notes Date/Time Note Provider Source 2024-10-01 14:42:39 Problem: Falls, Risk of Goal: Absence of falls Outcome: Adequate for discharge Problem: Bleeding, Risk of Goal: Absence of impaired coagulation signs and symptoms Outcome: Adequate for discharge Goal: Absence of active bleeding Outcome: Adequate for discharge Problem: Discharge Planning Goal: Adequate for discharge Outcome: Adequate for discharge Goal: Effective communication Outcome: Adequate for discharge Problem: Cardiac Output - Decreased Goal: Absence of signs and symptoms of decreased cardiac output Outcome: Adequate for discharge Problem: Skin integrity Impaired (Risk or Actual) Goal: Wound healing Outcome: Adequate for discharge Goal: Prevention of new skin breakdown Outcome: Adequate for discharge Problem: Tissue Perfusion, Cardiopulmonary - Altered Goal: Circulatory function within specified parameters Outcome: Adequate for discharge [facility] 2024-10-01 08:18:52 Report to 9B. OR MOBILE WEB DEVELOPER Rosa Hough RN [facility] 2024-10-01 08:16:56 Coronary Angiography Annie Claros Date of Service: 10/01/2024 8:17 AM Attending Physician: Jeremiah Molina MD Fellow: Dr. Dupont and Dr. Tucker Referring Physician: Davin Carrillo Procedures Performed: Coronary angiogram Indication/Diagnosis: ACS ([place]/NSTEMI) Consent: Risks, benefits, alternatives and complications of the procedure discussed with the patient, who understood and agreed to proceed. Aseptic technique: Chlorprep Local Anesthesia: 1% lidocaine without epinephrine Sedation: Moderate Access site: Right radial artery Closure Method: TR band Sterile dressing: yes Complications: none Procedures: After patient identification/verification, the patient was thereafter transferred to the pathology laboratory aides teacher table. The access site was prepped and draped in usual sterile fashion. After administering sedation, time out was done. Under ultrasound guidance, using Seldinger technique, the Right radial artery was accessed and a 6 Fr Slender sheath was introduced into the artery. A5 Fr TIG 4.0 catheter was used to cannulate the LM. Selective coronary angiography was done using several views. A 5 Fr JR 4.0 was used to cross the AV with the J wire and the catheter was advanced into the LV where selective LVEDP was measured. The catheter was then used to cannulate the RCA and selective coronary angiography was done using multiple views. The attending physician was present throughout the procedure and provided the highest level of supervision. Findings: Coronary dominance: left Left main: Angiographically normal LAD: Large, proximal mild 20-30% disease. Mid to distal with diffuse mild LI D1: small D2: Patent RI: Patent with mild LI LCX: Large and dominant. Patent proximal to distal stent with no ISR. OM1: Patent with mild LI OM2: small and patent LPDA: Patent RCA: Non dominant. Proximal mild LI then severe 80% mid segment disease. Distal mild LI PDA: Small and patent LVEDP: We didn't cross the AV into the LV due to LV thrombus Post-Procedure Sedation Addendum Immediately prior to start of sedation, the patient was evaluated and there was no change from the pre-procedure evaluation. I was present and directed medical care. The patient underwent moderate sedation for the procedure. The medications administered were recorded in the MAR; oxygenation, ventilation and circulation were monitored continuously and were recorded in the EMR. I evaluated the patient after the procedure. The patient was evaluated immediately as recovering from sedation. 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 Ricci and the patient Jeremiah Molina MD 10/01/2024 8:17 AM [facility] [email or web address]] IM-CARDIOVASCULAR DISEASE STAFF [facility] 2024-10-01 00:03:59 Problem: Falls, Risk of Goal: Absence of falls Outcome: Progressing as expected Problem: Bleeding, Risk of Goal: Absence of impaired coagulation signs and symptoms Outcome: Progressing as expected Goal: Absence of active bleeding Outcome: Progressing as expected Problem: Discharge Planning Goal: Adequate for discharge Outcome: Progressing as expected Goal: Effective communication Outcome: Progressing as expected Problem: Cardiac Output - Decreased Goal: Absence of signs and symptoms of decreased cardiac output Outcome: Progressing as expected Problem: Skin integrity Impaired (Risk or Actual) Goal: Wound healing Outcome: Progressing as expected Goal: Prevention of new skin breakdown Outcome: Progressing as expected Problem: Tissue Perfusion, Cardiopulmonary - Altered Goal: Circulatory function within specified parameters Outcome: Progressing as expected OD Mohr RN [facility] 2024-09-30 16:58:44 Problem: Falls, Risk of Goal: Absence of falls Outcome: Progressing as expected Problem: Bleeding, Risk of Goal: Absence of impaired coagulation signs and symptoms Outcome: Progressing as expected Goal: Absence of active bleeding Outcome: Progressing as expected Problem: Discharge Planning Goal: Adequate for discharge Outcome: Progressing as expected Goal: Effective communication Outcome: Progressing as expected Problem: Cardiac Output - Decreased Goal: Absence of signs and symptoms of decreased cardiac output Outcome: Progressing as expected Problem: Skin integrity Impaired (Risk or Actual) Goal: Wound healing Outcome: Progressing as expected Goal: Prevention of new skin breakdown Outcome: Progressing as expected Problem: Tissue Perfusion, Cardiopulmonary - Altered Goal: Circulatory function within specified parameters Outcome: Progressing as expected [facility] 2024-09-30 02:39:16 Problem: Falls, Risk of Goal: Absence of falls Outcome: Progressing as expected Problem: Bleeding, Risk of Goal: Absence of impaired coagulation signs and symptoms Outcome: Progressing as expected Goal: Absence of active bleeding Outcome: Progressing as expected Problem: Discharge Planning Goal: Adequate for discharge Outcome: Progressing as expected Goal: Effective communication Outcome: Progressing as expected Problem: Cardiac Output - Decreased Goal: Absence of signs and symptoms of decreased cardiac output Outcome: Progressing as expected Problem: Skin integrity Impaired (Risk or Actual) Goal: Wound healing Outcome: Progressing as expected Goal: Prevention of new skin breakdown Outcome: Progressing as expected Problem: Tissue Perfusion, Cardiopulmonary - Altered Goal: Circulatory function within specified parameters Outcome: Progressing as expected [facility] [email or web address]] Chucky Egan RN [facility] 2024-09-29 16:38:00 Problem: Falls, Risk of Goal: Absence of falls Outcome: Progressing as expected Problem: Bleeding, Risk of Goal: Absence of impaired coagulation signs and symptoms Outcome: Progressing as expected Goal: Absence of active bleeding Outcome: Progressing as expected Problem: Discharge Planning Goal: Adequate for discharge Outcome: Progressing as expected Goal: Effective communication Outcome: Progressing as expected Problem: Cardiac Output - Decreased Goal: Absence of signs and symptoms of decreased cardiac output Outcome: Progressing as expected Problem: Skin integrity Impaired (Risk or Actual) Goal: Wound healing Outcome: Progressing as expected Goal: Prevention of new skin breakdown Outcome: Progressing as expected Problem: Tissue Perfusion, Cardiopulmonary - Altered Goal: Circulatory function within specified parameters Outcome: Progressing as expected [facility] 2024-09-28 23:02:12 Problem: Falls, Risk of Goal: Absence of falls Outcome: Progressing as expected Problem: Bleeding, Risk of Goal: Absence of impaired coagulation signs and symptoms Outcome: Progressing as expected Goal: Absence of active bleeding Outcome: Progressing as expected Problem: Discharge Planning Goal: Adequate for discharge Outcome: Progressing as expected Goal: Effective communication Outcome: Progressing as expected Problem: Cardiac Output - Decreased Goal: Absence of signs and symptoms of decreased cardiac output Outcome: Progressing as expected Problem: Skin integrity Impaired (Risk or Actual) Goal: Wound healing Outcome: Progressing as expected Goal: Prevention of new skin breakdown Outcome: Progressing as expected Problem: Tissue Perfusion, Cardiopulmonary - Altered Goal: Circulatory function within specified parameters Outcome: Progressing as expected [facility] 2024-09-28 09:57:20 Location of Patient: [address] [place] [address] 923 Name of Responding NCCU RN: Aundrea Miller RN Name of Primary RN: Armin Turpin RN Name of Responding Provider (Neurology): Hang LEÓN CT Arrival Time: 919 ALTEPLASE IV BOLUS FOR STROKE PROTOCOL has not been administered. TENECTEPLASE 50 MG IV SOLR FOR ACUTE ISCHEMIC STROKE has not been administered. Disposition of Patient: Back to room Relevant/Brief History of Events and Presentation of Symptoms: Upon arriving in the patient's room, the patient was accompanied by primary MD, primary RN, and neurology doctor. Primary RN stated that the patient began having visual changes which included blurred vision as well as seeing "black spots." Patient stated this was a new change that had happened within the hour. Upon assessment, patient was AOx4, equal strength in upper and lower extremities bilaterally, pupils were round, equal, and briskly reactive, no pronator drift, and could see in all visual diaz. Labs were obtained as well as blood sugar which was 184. Patient was taken to CT with RNx3, neurology dr, RT and transportation where Dr. Murray stated that throbolytic was not indicated. Patient was taken back to her room with vital signs stable. OR MOBILE WEB DEVELOPER Aundrea Miller RN [facility] 2024-09-28 07:29:04 Problem: Falls, Risk of Goal: Absence of falls Outcome: Progressing as expected Problem: Bleeding, Risk of Goal: Absence of impaired coagulation signs and symptoms Outcome: Progressing as expected Goal: Absence of active bleeding Outcome: Progressing as expected Problem: Discharge Planning Goal: Adequate for discharge Outcome: Progressing as expected Goal: Effective communication Outcome: Progressing as expected Problem: Cardiac Output - Decreased Goal: Absence of signs and symptoms of decreased cardiac output Outcome: Progressing as expected Problem: Skin integrity Impaired (Risk or Actual) Goal: Wound healing Outcome: Progressing as expected Goal: Prevention of new skin breakdown Outcome: Progressing as expected Problem: Tissue Perfusion, Cardiopulmonary - Altered Goal: Circulatory function within specified parameters Outcome: Progressing as expected OR MOBILE WEB DEVELOPER Armin Turpin RN [facility] 2024-09-28 02:50:25 Problem: Falls, Risk of Goal: Absence of falls 09/28/2024249 by Chucky Egan RN Outcome: Progressing as expected 09/28/2024249 by Chucky Egan RN Outcome: Progressing as expected Problem: Bleeding, Risk of Goal: Absence of impaired coagulation signs and symptoms 09/28/2024249 by Chucky Egan RN Outcome: Progressing as expected 09/28/2024249 by Chucky Egan RN Outcome: Progressing as expected Goal: Absence of active bleeding 09/28/2024249 by Chucky Egan RN Outcome: Progressing as expected 09/28/2024249 by Chucky Egan RN Outcome: Progressing as expected Problem: Discharge Planning Goal: Adequate for discharge 09/28/2024249 by Chucky Egan RN Outcome: Progressing as expected 09/28/2024249 by Chucky Egan RN Outcome: Progressing as expected Goal: Effective communication 09/28/2024249 by Chucky Egan RN Outcome: Progressing as expected 09/28/2024249 by Chucky Egan RN Outcome: Progressing as expected Problem: Cardiac Output - Decreased Goal: Absence of signs and symptoms of decreased cardiac output 09/28/2024249 by Chucky Egan RN Outcome: Progressing as expected 09/28/2024249 by Chucky Egan RN Outcome: Progressing as expected Problem: Skin integrity Impaired (Risk or Actual) Goal: Wound healing 09/28/2024249 by Chucky Egan RN Outcome: Progressing as expected 09/28/2024249 by Chucky Egan RN Outcome: Progressing as expected Goal: Prevention of new skin breakdown 09/28/2024249 by Chucky Egan RN Outcome: Progressing as expected 09/28/2024249 by Chucky Egan RN Outcome: Progressing as expected Problem: Tissue Perfusion, Cardiopulmonary - Altered Goal: Circulatory function within specified parameters 09/28/2024249 by Chucky Egan RN Outcome: Progressing as expected 09/28/2024249 by Chucky Egan RN Outcome: Progressing as expected [facility] 2023-03-06 15:09:00 [facility] ([facility]) EMERGENCY PROVIDER REPORT REPORT#:[id number] REPORT STATUS: Signed DATE:03/06/23 TIME:150 PATIENT: ANNIE CLAROS UNIT #: [id number] ROOM/BED: : 52 AGE: 73 SEX: F [...] 1700 ATORVASTATIN (LIPITOR) 40 MG PO DAILY 1699 #30 TAB Prov: 03/17/22 CARVEDILOL (COREG) 6.25 [...] (Auto) (20.5 - 51.1 %) 18.4 L [place] % (Auto) (1.7 - 9.3 %) 7.1 Eos % (Auto) (0.0 - 6.0 %) 1.2 Baso % (Auto) (0.0 - 2.0 %) 1.0 Neut # (Auto) (1.8 - 7.6 K/mm3) 5.5 Lymph # (Auto) (0.6 - 3.2 K/mm3) 1.4 [place] # (Auto) (0.3 - 1.1 K/mm3) 0.5 [...] Apixaban Oral Tablet at 1042 RPT #: [id number] END OF REPORT [facility] 2022-07-13 10:12:00 [facility] ([facility]) Hospitalist Discharge Summary REPORT#:[id number] REPORT STATUS: Signed DATE:07/13/22 TIME:1012 PATIENT: ANNIE CLAROS UNIT #: [id number] ROOM/BED: [place] [address] : [birth year] AGE: 72 SEX: F ATTEND: [...] Musculoskeletal: normal inspection, painless range of motion Neuro/FINANCE SPECIALIST: alert, oriented X 3 Skin: dry, intact [...] Home/Self Care Additional Discharge Routines: PCP Follow-Up, Lighting Director Follow-Up Diet: Cardiac Activity: As Tolerated Follow-up [...] of my knowledge. at 2058 RPT #: [id number] END OF REPORT [facility] 2022-07-13 09:24:00 [facility] ([facility]) Cardiology Progress Note REPORT#:[id number] REPORT STATUS: Signed DATE:07/13/22 TIME:923 PATIENT: ANNIE CLAROS UNIT #: [id number] ROOM/BED: [facility] : 52 AGE: 72 SEX: F ATTEND: Caitlin Wood MD ADM AUTHOR: Daria Muhammad * ALL [...] Sodium Chloride (0.9% Sodium Chloride) 1,000 ML .[id number] IV Status post: pci to RCA Physical [...] LE assessment: no edema Musculoskeletal: normal inspection Neuro/FINANCE SPECIALIST: alert, oriented X 3 Skin: dry, intact, [...] Wood in 1-2 weeks at 1511 at 1718 RPT #: [id number] END OF REPORT [facility] 2022-07-12 12:06:00 [facility]) Hospitalist History Physical REPORT#:[id number] REPORT STATUS: Signed DATE:07/12/22 TIME:1206 PATIENT: ANNIE CLAROS UNIT #: [id number] ROOM/BED: [place] [address] : 52 AGE: 72 SEX: F ATTEND: [...] Result Date Time Pulse Ox 100 07/12 726 B/P 194/70 07/12 07 Temp 97.5 07/12 07 Pulse 73 07/12 07 Resp 20 07/12 07 O2 Delivery Room air 07/12 07 Patient Weight and BMI Weight (kg): 82.273 [...] Musculoskeletal: normal inspection, painless range of motion Neuro/FINANCE SPECIALIST: alert, oriented X 3 Skin: dry, intact [...] -PATRICK initiated, educated on need for compliance. -Planning Specialist following. -continue OMT #CKDIII- post contrast [...] of my knowledge. at 1501 RPT #: [id number] END OF REPORT [facility] 2022-07-12 12:01:00 [facility] ([facility]) DT Operative Note REPORT#:[id number] REPORT STATUS: Signed DATE:07/12/22 TIME:1201 PATIENT: ANNIE CLAROS UNIT #: [id number] ROOM/BED: : 52 AGE: 72 SEX: F ATTEND: Caitlin Wood MD ADM AUTHOR: Caitlin Wood MD * ALL edits or amendments must be made on the electronic/computer document * Operative Report Operative Note Note: Cardiac catheterization procedure note Location: [facility] catheterization Lab Date of service: [...] Moderate sedation -Right radial artery access, 5/6 Citizen [place] slender sheath -Selective coronary angiography -Left heart catheterization -IVUS of the LCx -Successful PCI to the LCx with 3.0 x 28 mm and 2.25 x 24 mm Synergy XD PATRICK -54992 Moderate sedation, initial 15 minutes -33193 CAG+LHC -34534 PATRICK LCx -53888(+) IVUS LCx Findings: Coronary Anatomy: -Left main: [...] access site. Using Seldinger technique a 5/6 Citizen [place] slender sheath was introduced over the wire into the right radial artery without difficulty. A cocktail of verapamil and nitroglycerin was given IA as above. A 5 Citizen [place] Alto 4.0 catheter was introduced through the RRA [...] was focal 80 -90%. Utilizing the 6 Citizen [place] XB 3.0 guiding catheter, I selectively engaged the left. IV heparin was used for anticoagulation and ACT was measured periodically throughout theprocedure to maintain an ACT of 200-300 seconds. After adequate anticoagulation a run-through coronary wire was used to cross the lesion into the distal segment. I then introduced a [place]on IVUS Jerome eye over the wire and examined the [...] concerns were addressed. Caitlin Wood MD Attending Planning Specialist [facility] Cardiology at 1208 RPT #: [id number] END OF REPORT [facility] 2022 13:39:00 [facility] ([facility]) Hospitalist Discharge Summary REPORT#:[id number] REPORT STATUS: Signed DATE:03/17/22 TIME:1339 PATIENT: ANNIE CLAROS UNIT #: [id number] ROOM/BED: [place] [address] : 52 AGE: 72 SEX: F ATTEND: [...] PFO management. She was followed closely by talent development manager. Patient has a history of diabetes mellitus with hemoglobin A1c of 9.2 and hypertension. She also had a CKD 3 and the creatinine remained at baseline. She remained hemodynamically stable for discharge and will follow up with her PCP, neurologist and talent development manager outpatient. Pt. condition on discharge: stable Free [...] Result Date Time Pulse Ox 94 03/17 110 B/P 153/82 03/17 1109 B/P Mean 105.7 [...] Musculoskeletal: normal inspection, painless range of motion Neuro/FINANCE SPECIALIST: abnormal speech, alert, oriented X 3 Skin: dry, intact Psychiatry: normal affect, normal judgment/insight, normal mood, not homicidal, not suicidal Results Findings/Data: Laboratory Tests: 03/17 03/17 03/17 03/16 1108 0826 6966 2024 Chemistry Sodium (134 - 147 mmol/L) [...] Home/Self Care Additional Discharge Routines: PCP Follow-Up, Lighting Director Follow-Up Diet: Cardiac Activity: Resume Normal Activity, As Tolerated Follow-up Appointments PCP follow-up: PCP: Jihan Calixto DO PCP follow up timeframe: In 1-2 weeks Consulting provider 1: Provider 1: Erick Barrios MD Specialty: Neurology Consult follow up timeframe: In 1-2 weeks at 1632 RPT #: [id number] END OF REPORT [facility] 2022 07:57:00 [facility] Cardiology Progress Note REPORT#:[id number] REPORT STATUS: Signed DATE:03/17/22 TIME:756 PATIENT: ANNIE CLAROS UNIT #: [id number] ROOM/BED: [place] [address] : 52 AGE: 72 SEX: F ATTEND: [...] air 03/16 1212 64 134/82 99.5 97 03/16 1138 64 18 128/81 96.4 97 03/16 [...] LE assessment: no edema Musculoskeletal: normal inspection Neuro/FINANCE SPECIALIST: alert, oriented X 3 Skin: dry, intact [...] weeks at 1121 at 1706 RPT #: [id number] END OF REPORT [facility] 2022-03-16 14:49:00 [facility] ([facility] Neurology Progress Note REPORT#:[id number] REPORT STATUS: Signed DATE:03/16/22 TIME:1449 PATIENT: ANNIE CLAROS UNIT #: [id number] ROOM/BED: [facility]03-1 : 52 AGE: 72 SEX: F ATTEND: [...] 03/16 0810 O2 Delivery Room air 03/16 810 Temp 36.7 03/16 07 PATIENT WEIGHT: Weight (lb): 180 Weight (oz): [...] 0.4 MG ASDIR PRN IV Phenol (Chloraseptic Williams) 1 SPRAY ASDIR PRN MM Insulin Human [...] % (Auto) (20.5 - 51.1 %) 29.7 [place] % (Auto) (1.7 - 9.3 %) 9.2 Eos % (Auto) (0.0 - 6.0 %) 5.4 Baso % (Auto) (0.0 - 2.0 %) 0.8 Neut # (Auto) (1.8 - 7.6 K/mm3) 3.6 Lymph # (Auto) (0.6 - 3.2 K/mm3) 2.0 [place] # (Auto) (0.3 - 1.1 K/mm3) 0.6 [...] for the consult at 1309 RPT #: [id number] END OF REPORT [facility] 2022-03-16 13:02:00 [id number] [facility] [address] [place] [address] PATIENT NAME: ANNIE CLAROS ADMIT DATE: 03/14/22 ACCOUNT NO: [id number] ROOM NO: L.S203 AGE: 71 REPORT TYPE: eTRANSESOPHAGEL REPORT SEX: F ADMITTING PHYSICIAN: Rosalinda Cr MD ATTENDING PHYSICIAN: Rosalinda Cr MD *[facility]* [address] [place], [place] [address] Transesophageal Echocardiogram Patient: Annie Claros Study Date: 03/16/2022 BP: Location: [facility] URN: [id number] : 1950 Age: 71 Height: 65 in / 165 cm Gender: F Weight: 169 lb / 76.8 kg BMI/BSA: 28.2 kg/m 2 / 1.9 m 2 *Ordering Physician: * Daria Muhammad *Interpreting Physician: * Caitlin Wood MD *Motor Grader Operator: * Allison Cedeño ---- Indications: CVA, PFO. ---- Study data: Procedure: Transesophageal echocardiography was performed. An adult multiplane transesophageal probe was inserted by the attending talent development manager without difficulty. Image quality was adequate. The transesophageal probe was removed. Transthoracic echocardiography was performed. Image quality was excellent. Complete 2D, complete spectral Doppler, and color Doppler. No complications. ---- Findings Left ventricle: The cavity size is normal. Right ventricle: The cavity size is normal. Left atrium: There is no evidence of a thrombus in the atrial cavity or appendage. Right atrium: The atrium is normal in size. Atrial septum: There is a small patent foramen ovale. Doppler in the PATIENT NAME: ANNIE CLAROS baseline state, shows a olmx-en-bdyov atrial level shunt. Aorta: The aortic root [...] regurgitation. Pericardium: There is no pericardial effusion. ---- Conclusions Summary: 1. Left ventricle: The cavity size is normal. 2. Left atrium: There is no evidence of a thrombus in the atrial cavity or appendage. 3. Atrial septum: There is a small patent foramen ovale. Doppler in the baseline state, shows a lqzf-te-ckawh atrial level shunt. Prepared and electronically signed by Caitlin Wood MD 03/16/2022 13:02 at 1302 PATIENT NAME: ANNIE CLAROS [facility] 2022-03-16 09:08:00 [facility] ([facility]) Hospitalist Progress Note REPORT#:[id number] REPORT STATUS: Signed DATE:03/16/22 TIME:907 PATIENT: ANNIE CLAROS UNIT #: [id number] ROOM/BED: [place] [address] : 52 AGE: 71 SEX: F ATTEND: Rosalinda Cr MD ADM AUTHOR: Rosalinda Cr MD * ALL edits or amendments must be made on the electronic/computer document * Subjective Chief complaint: Speech is improving. for COURT Objective General VS/I O: Vital Signs: Date Time Temp Pulse Resp B/P B/P Pulse O2 O2 Flow FiO2 Mean Ox Delivery Rate 03/16 727 98.1 64 15 117/72 86.8 97 Room [...] 0.4 MG ASDIR PRN IV Phenol (Chloraseptic Williams) 1 SPRAY ASDIR PRN MM Insulin Human [...] Musculoskeletal: normal inspection, painless range of motion Neuro/FINANCE SPECIALIST: abnormal speech, alert, oriented X 3 Skin: [...] % (Auto) (20.5 - 51.1 %) 29.7 [place] % (Auto) (1.7 - 9.3 %) 9.2 Eos % (Auto) (0.0 - 6.0 %) 5.4 Baso % (Auto) (0.0 - 2.0 %) 0.8 Neut # (Auto) (1.8 - 7.6 K/mm3) 3.6 Lymph # (Auto) (0.6 - 3.2 K/mm3) 2.0 [place] # (Auto) (0.3 - 1.1 K/mm3) 0.6 [...] 1554 Active GAIT TRAINING 15 MIN 03/16 1554 Active EKG 03/14 2146 Active Free Text [...] daughter at bedside. at 1601 RPT #: [id number] END OF REPORT [facility] 2022-03-16 08:43:00 [facility] ([facility]) Cardiology Progress Note REPORT#:[id number] REPORT STATUS: Signed DATE:03/16/22 TIME:08 PATIENT: ANNIE CLAROS UNIT #: [id number] ROOM/BED: [address] : [birth year] AGE: 72 SEX: F ATTEND: [...] 0434 36.5 70 20 125/77 93.1 94 08 0003 36.7 79 20 127/80 95.7 95 08/ 1957 97 Room air 21 03/15 1948 [...] 0.4 MG ASDIR PRN IV Phenol (Chloraseptic Williams) 1 SPRAY ASDIR PRN MM Insulin Human [...] LE assessment: no edema Musculoskeletal: normal inspection Neuro/FINANCE SPECIALIST: alert, oriented X 3 Skin: dry, intact [...] % (Auto) (20.5 - 51.1 %) 29.7 [place] % (Auto) (1.7 - 9.3 %) 9.2 Eos % (Auto) (0.0 - 6.0 %) 5.4 Baso % (Auto) (0.0 - 2.0 %) 0.8 Neut # (Auto) (1.8 - 7.6 K/mm3) 3.6 Lymph # (Auto) (0.6 - 3.2 K/mm3) 2.0 [place] # (Auto) (0.3 - 1.1 K/mm3) 0.6 [...] attending at 1334 at 1120 RPT #: [id number] END OF REPORT [facility] 2022-03-15 15:10:00 [facility] ([facility]) Neurology Consultation Note REPORT#:[id number] REPORT STATUS: Signed DATE:03/15/22 TIME:151 PATIENT: ANNIE CLAROS UNIT #: [id number] ROOM/BED: [facility]03-1 : 52 AGE: 71 SEX: F ATTEND: Rosalinda Cr MD ADM AUTHOR: Preeti Crowell PROPELLER ENGINEER * ALL edits or amendments must be [...] 0.4 MG ASDIR PRN IV Phenol (Chloraseptic Williams) 1 SPRAY ASDIR PRN MM Insulin Human [...] no edema Musculoskeletal: painless range of motion Neuro/FINANCE SPECIALIST: alert, oriented X 4, normal speech, EOMI [...] - 7.0 pH UNITS) 6.0 Ur Specific [place] (1.005 - 1.030 SG) <=1.005 Urine Protein [...] PURPOSES ONLY RESULT CODE: CVRMD Impression By: AlphonsoDASLuis Hicks M.D. CAT SCAN - CT ANGIO [...] No evidence of acute abnormality. Impression By: [email or web address] - Lm Watts M.D. MAGNETIC [facility]ONANCE IMAGING - MRI BRAIN W/O CONTRAST 03/15 1100 Report Impression - Status: SIGNED Entered: 03/15/2022 1147 IMPRESSION: No acute intracranial process seen. Impression By: [email or web address] - Delbert Lance M.D. Results: labs reviewed, vital signs [...] consult at 1447 at 1540 RPT #: [id number] END OF REPORT [facility] 2022-03-15 13:23:00 [facility] ([facility]) Cardiology Consultation REPORT#:[id number] REPORT STATUS: Signed DATE:03/15/22 TIME:1323 PATIENT: ANNIE CLAROS UNIT #: [id number] ROOM/BED: [facility]03-1 : 54 AGE: 71 SEX: F ATTEND: [...] 0916 36.6 86 18 112/74 86 97 03/15 0515 38.2 107 14 113/55 74 96 / 0400 37.2 95 14 122/60 80 99 / 0000 36.9 82 16 188/81 116 100 Room air 03/14 2218 161/74 103 08/ 2213 181/84 116 / 2205 99 03/14 [...] calf tenderness, no edema Musculoskeletal: normal inspection Neuro/FINANCE SPECIALIST: alert, oriented X 3 Skin: dry, intact, [...] (0.8 - 1.2 INR Unit) 0.88 PTT (Shannon) (26 - 35 SECONDS) 31.1 PT Patient/Control [...] - 7.0 pH UNITS) 6.0 Ur Specific [place] (1.005 - 1.030 SG) <=1.005 Urine Protein [...] acute intracranial process seen. Impression By: [email or web address] - Delbert Lance M.D. EKG Interpretation: normal sinus rhythm, [...] Appreciate the referral. at 1530 at 1015 [facility] #: [id number] END OF REPORT [facility] 2022-03-15 12:48:00 [id number] [facility] [id number] [place] [id number] PATIENT NAME: ANNIE CLAROS ADMIT DATE: 03/14/22 ACCOUNT NO: [id number] ROOM NO: GLEN[place] AGE: 71 REPORT TYPE: eECHOCARDIOGRAM REPORT SEX: F ADMITTING PHYSICIAN: Rosalinda Cr MD ATTENDING PHYSICIAN: Rosalinda Cr MD *[facility]* [address] [place] [address] Transthoracic Echocardiogram Patient: Annie Claros Study Date: 03/15/2022 BP: 133 / 55 Location: [facility] URN: [id number] : 1950 Age: 71 Height: 65 in / 165 cm Gender: F Weight: 169 lb / 76.8 kg BMI/BSA: 28.2 kg/m 2 / 1.9 m 2 *Ordering Physician: Rosalinda Marin I *Interpreting Physician: * Caitlin Wood MD *Motor Grader Operator: * Allison Cedeño ---- Indications: STROKE. ---- Study data: Transthoracic echocardiogram. Procedure: Transthoracic echocardiography was performed. Image quality was adequate. Complete 2D, complete spectral Doppler, and color Doppler. Location: Emergency department. Patient status: Inpatient. Patient room number: ER-5. Study status: Routine. ---- Findings Left ventricle: The cavity size is [...] ovale. Agitated saline contrast study shows a bobrm-fs-dppn shunt. Aortic valve: The valve is structurally [...] cava: The vessel is normal in size. ---- Measurements Left ventricle Value Ref ALISON, LAX [...] Ref A rev duration 131 ms --------- ---- Conclusions Summary: 1. Left ventricle: The cavity [...] ovale. Agitated saline contrast study shows a pmtll-vi-cjek shunt. Impressions: Bubble study is positive for intracardiac shunt possibly a PFO. COURT is recommended. Prepared and electronically signed by PATIENT NAME: ANNIE CLAROS Caitlin Wood MD 03/15/2022 12:47 at 1248 PATIENT NAME: ANNIE CLAROS [facility] 2022-03-15 07:45:00 [facility] ([facility]) [facility] Hospitalist History Physical REPORT#:[id number] REPORT STATUS: Signed DATE:03/15/22 TIME:0745 PATIENT: ANNIE CLAROS UNIT #: [id number] ROOM/BED: [place] [address] : [birth year] AGE: 71 SEX: F ATTEND: [...] Documented: Result Date Time Pulse Ox 96 03/15 0515 B/P 113/55 / 0515 B/P Mean 74 / 0515 Temp 100.8 / 0515 Pulse 107 / 0515 Resp 14 03/15 0515 O2 Delivery Room air 03/15 0000 24 hour I O ending at [...] Musculoskeletal: normal inspection, painless range of motion Neuro/FINANCE SPECIALIST: abnormal speech, alert, oriented X 3 Skin: [...] (0.8 - 1.2 INR Unit) 0.88 PTT (Shannon) (26 - 35 SECONDS) 31.1 PT Patient/Control [...] - 7.0 pH UNITS) 6.0 Ur Specific [place] (1.005 - 1.030 SG) <=1.005 Urine Protein (NEG mg/dL) NEGATIVE Urine Glucose (UA) (NEG mg/dL) NEGATIVE Urine Ketones (NEG mg/dL) NEGATIVE Urine Blood (NEG mg/DL) NEGATIVE Urine Nitrite (NEG SCREEN) NEGATIVE Urine Bilirubin (NEG mg/dL) NEGATIVE Urine Urobilinogen (<2.0 mg/dL) 0.2 Ur Leukocyte Esterase (NEGATIVE Leuk/mcL) NEGATIVE Laboratory Tests 03/14/22 2145: [Embedded Image Not Available] Radiology data: Recent [...] status: full code at 1355 RPT #: [id number] END OF REPORT [facility] 2022-03-14 22:11:00 [facility] ([facility]) EMERGENCY PROVIDER REPORT REPORT#:[id number] REPORT STATUS: Signed DATE:03/14/22 TIME:2210 PATIENT: ANNIE CLAROS UNIT #: [id number] [place]BED: [place] : 54 AGE: 71 SEX: F PCP PHYS: No Primary or Family Physician SERVICE AUTHOR: Elina Starks DO * ALL edits or amendments must be made on the electronic/computer document * HPI-Stroke/CVA General Initial Greet Date/Time 03/14/222136 Presentation )( Progression since Onset Gradually improving [...] drift 5 sec (0) 0 Limb Ataxia FNF/Heel-Partida No ataxia (0) 0 Sensation (Arms/Legs/Face) No [...] Temp 36.7 03/14 2141 Pulse 82 03/14 214 Resp 18 03/14 2141 Last Documented: Result Date Time B/P 161/74 03/14 2218 B/P Mean 103 03/14 2218 Pulse Ox 99 03/14 2205 O2 Delivery Room air 03/14 2141 Temp 36.7 03/14 2141 Pulse 82 03/14 2141 Resp 18 03/14 2141 Review of Vital Signs Reviewed Free Text [...] (0.8 - 1.2 INR Unit) 0.88 PTT (Shannon) (26 - 35 SECONDS) 31.1 PT Patient/Control [...] Consultation 1 Referral/Consult Name Amelia Deshpande MD Lighting Director Called Neurology Requested Call Time 2146 Requested Call Date 03/14/22 Call Returned Call returned Call Returned Time 2146 Call Returned Date 03/14/22 Free Text Consult Notes Recommends waiting for her CT results prior to administering TPA Consultation 2 Referral/Consult Name ; Amelia Deshpande MD Lighting Director Called Neurology Requested Call Time 2222 Requested Call Date 03/14/22 Call Returned Call returned Call Returned Time 2223 Call Returned Date 03/14/22 Lighting Director Will see patient Free Text Consult Notes [...] will see patient at 0429 RPT #: [id number] END OF REPORT [facility]
[2024-12-06] MEDS ORDERED: ONDANSETRON 4 MG (ODT) TAB ONE (10:42)
--- NOTE | 2024-12-06 11:23 | RAD REPORT ---
EXAM: Hand Right 3 View HISTORY: PAIN COMPARISON: None FINDINGS: Bones: No acute fracture identified. Alignment:No significant malalignment. Degenerative changes:Mild degenerative changes are present at the first MCP joint. Other: n/a IMPRESSION: No evidence of acute osseous abnormality involving the imaged hand.
--- NOTE | 2024-12-06 11:27 | RAD REPORT ---
EXAMINATION: Head C Spine Mpr Wo Con CLINICAL INDICATION: Female, 74 years old. PAIN TECHNIQUE: Axial CT images from the skull base to the vertex without intravenous contrast. Axial CT i mages through the cervical spine were obtained without intravenous contrast. Sagittal and coronal reformatted images were created from the data set. Coronal and sagittal reformatted images were creat ed from the data set. One or more of the following dose reduction techniques were used: Automated exposure control, adjustment of the mA and/or kV according to patient size, and/or iterative reconstr uction. Unless otherwise specified, incidental findings do not require dedicated imaging follow-up. [id number]. COMPARISON: 09/24/2024 FINDINGS: Head: INTRACRANIAL: No acute intracranial hemorrhage. No hydrocephalus. No mass effect or midline shift. Sm all remote left occipital lobe cortical infarct. Small right occipital lobe cortical infarct is new since 09/24/2024 and favored subacute. VASCULATURE: No visualized abnormalities in the arteries or dural venous sinuses. SCALP/SKULL: No calvarial fracture identified. No acute soft tissue abnormality. SINUSES: The visualized paranasal sinuses are mostly clear. Trace mastoid fluid. Cervical spine: ALIGNMENT: The cervical spine has normal alignment without scoliosis or spondylolisthesis. BONE: Vertebral body heights are maintained. No aggressive osseous lesions. DEGENERATIVE: No significant focal degenerative changes. SOFT TISSUE: No significant abnormalities in the soft tissue of the neck. The visualized lung apices are clear. IMPRESSION: No definite acute intracranial abnormality. Interval development of a small right cortical occipital infarct that is favored subacute. Remote left occipital lobe cortical infarct. No acute fracture or traumatic malalignment of the cervical spine.
--- NOTE | 2024-12-06 11:52 | EDPHYS ---
Physician Documentation [facility] Name: Annie Zuñiga Age: 74 yrs Sex: Female : 1950 Arrival Date: 12/06/2024 Time: 10:17 Bed 8 Private MD: ED Physician Rodriguez Castellon HPI: 12/06 10:40 This 74 yrs old Female presents to ER via Ambulatory with complaints of Head Injury kb Without LOC-Adult, Hand Injury. 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 Denies loc. States she hit the left side of her head and tried to catch herself with right hand. Pt is on Eliquis. . Historical: - Allergies: 10:29 PENICILLINS; iw - PMHx: 10:29 Hypertension; Thyroid problem; Diabetes - NIDDM; CVA; High Cholesterol; Gout; kidney iw failure; ULCER; - PSHx: 10:29 hysterectomy; loop recorder; cardiac stents; iw - Immunization history:: Adult Immunizations not up to date. - Infectious Disease History:: Denies. - Social history:: Smoking status: Patient denies any tobacco usage or history of. ROS: 10:41 Constitutional: As per HPI kb Exam: 10:41 Constitutional: This is a well developed, well nourished patient who is awake, alert, kb and in no acute distress. Head/Face: Normocephalic, atraumatic. Eyes: Pupils equal round and reactive to light, extra-ocular motions intact. Lids and lashes normal. Conjunctiva and sclera are non-icteric and not injected. Cornea within normal limits. Periorbital areas with no swelling, redness, or edema. ENT: Moist Mucous membranes Cardiovascular: Regular rate Respiratory: Respirations even and unlabored. No increased work of breathing. Talking in full sentences Skin: Warm, dry with normal turgor. Normal color. Neuro: Awake and alert, GCS 15, oriented to person, place, time, and situation. 10:41 Musculoskeletal/extremity: Extremities: grossly normal except: noted in the medial aspect of right hand: pain, tenderness, ROM: intact in all extremities, Circulation is intact in all extremities. Sensation intact. Vital Signs: 10:28 BP 183 / 79; Pulse 83; Resp 16; Temp 97.8; Pulse Ox 97% on R/A; Weight 72.57 kg; Height iw 5 ft. 2 in. ; Pain 2/10; 11:30 BP 137 / 74; Pulse 78; Resp 16; Pulse Ox 98% ; Pain 2/10; cm10 10:28 Body Mass Index 29.26 (72.57 kg, 157.48 cm) iw 10:28 Pain Scale: Adult iw 11:30 Pain Scale: Adult cm10 Joceline Coma Score: 11:49 Eye Response: spontaneous(4). Motor Response: obeys commands(6). Verbal Response: kb oriented(5). Total: 15. MDM: 10:20 Medical Screening Exam initiated kb 11:49 Differential diagnosis: Contusion of Hematoma on Intracranial bleed- subdural. Data kb reviewed: vital signs, nurses notes. Management of patient was discussed with the following: Dr Castellon. Counseling: I had a detailed discussion with the patient and/or guardian regarding the historical points, exam findings, and any diagnostic results supporting the discharge/admit diagnosis, radiology results, the need for outpatient follow up, a family practitioner, a neurologist, to return to the emergency department if symptoms worsen or persist or if there are any questions or concerns that arise at home. ED course: Discussed CT findings with pt including subacute infarct. Recommended follow up with her neurologist for further evaluation. Pt states she had a stroke in September then a second one at the [facility] since then. Will follow up with neuro. 12/06 10:24 Order name: Hand Right 3 View XRAY; Complete Time: 11:26 kb 12/06 10:24 Order name: CT Head C Spine; Complete Time: 11:30 kb Administered Medications: 10:57 Drug: Ondansetron Oral Disintegrating Tablet Oral Disintegrating Tablet 4 mg PO once cm10 Route: PO; 11:27 Follow up: Response: No adverse reaction; Nausea is decreased cm10 Disposition Summary: 12/06/24 11:51 Discharge Ordered Notes: Location: Home kb Condition: Stable kb Diagnosis - Fall on same level, unspecified kb - Unspecified injury of head, initial encounter kb - Subacute infarct - incidental finding, asymptomatic kb - Pain in right hand kb Followup: kb - With: Emergency Department - When: As needed - Reason: Worsening of condition Followup: kb - With: Private Physician - When: 2 - 3 days - Reason: Recheck today's complaints, Continuance of care, Re-evaluation by your physician Discharge Instructions: - Discharge Summary Sheet kb - Head Injury, Adult, [id number] kb Forms: - Medication Reconciliation Form kb - Antibiotic Education kb - Prescription Opioid Use kb - Patient Portal Instructions kb - Leadership Thank You Letter kb Addendum: 12/08/2024 09:01 Co-signature as Attending Physician, Rodriguez Castellon MD I reviewed the patient's care r n provided by the Advanced Practice Provider and agree with the diagnosis and treatment plan. Signatures: Dispatcher [employer] EDMS Mary Kate Medina, PRINCIPAL BIOINFORMATICS SPECIALIST-C PRINCIPAL BIOINFORMATICS SPECIALIST-Ckb Cher Silverman, RN RN Rodriguez Alevs MD MD rn Martinez, Clarissa RN RN cm10 Corrections: (The following items were deleted from the chart) 12/06 10:25 10:25 Hand Right 3 View+RAD.RAD.BRZ ordered. EDMS EDMS 10:25 10:25 Head C Spine MPR Wo Con+CT.RAD.BRZ ordered. EDMS EDMS
--- NOTE | 2024-12-06 11:52 | ER ---
Nurse's Notes [facility] Name: Annie Zuñiga Age: 74 yrs Sex: Female : 1950 Arrival Date: 12/06/2024 Time: 10:17 Bed 8 Private MD: Diagnosis: Fall on same level, unspecified;Unspecified injury of head, initial encounter;Subacute infarct - incidental finding, asymptomatic;Pain in right hand Presentation: 12/06 10:27 Chief complaint: Patient states: tripped and fell while helping her friend move , hit iw her head on door frame, no LOC, on Eliquis , also has pain to right hand from trying to catch herself. 10:27 Acuity: BONI 4 iw 10:28 Coronavirus screen: At this time, the client does not indicate any symptoms associated iw with coronavirus-19. Ebola Screen: No symptoms or risks identified at this time. Initial Sepsis Screen: Does the patient meet any 2 criteria? No. Patient's initial sepsis screen is negative. Does the patient have a suspected source of infection? No. Patient's initial sepsis screen is negative. Risk Assessment: Do you want to hurt yourself or someone else? Patient reports no desire to harm self or others. Onset of symptoms was December 06, 2024. 10:28 Method Of Arrival: Ambulatory iw Historical: - Allergies: 10:29 PENICILLINS; iw - PMHx: 10:29 Hypertension; Thyroid problem; Diabetes - NIDDM; CVA; High Cholesterol; Gout; kidney iw failure; ULCER; - PSHx: 10:29 hysterectomy; loop recorder; cardiac stents; iw - Immunization history:: Adult Immunizations not up to date. - Infectious Disease History:: Denies. - Social history:: Smoking status: Patient denies any tobacco usage or history of. Screenin:30 [facility] ED Fall Risk Assessment (Adult) History of falling in the last 3 months, cm10 including since admission Yes- single mechanical fall (1 pt) Confusion or Disorientation No (0 pts) Intoxicated or Sedated No (0 pts) Impaired Gait No (0 pts) Mobility Assist Device Used No (0 pt) Altered Elimination No (0 pt) Score/Fall Risk Level 0 - 2 = Low Risk Oriented to surroundings, Maintained a safe environment, Hourly rounding (assess needs \T\ fall precautionary measures) done. Abuse screen: Denies threats or abuse. Denies injuries from another. Nutritional screening: No deficits noted. Tuberculosis screening: No symptoms or risk factors identified. Assessment: 11:30 General: Appears in no apparent distress. comfortable, Behavior is calm, cooperative. cm10 Pain: Complains of pain in head Pain does not radiate. Pain currently is 2 out of 10 on a pain scale. Neuro: No deficits noted. Level of Consciousness is awake, alert, obeys commands, Oriented to person, place, time, situation, Appropriate for age Reports headache. Respiratory: No deficits noted. Airway is patent Respiratory effort is even, unlabored, Respiratory pattern is regular, symmetrical. GI: Reports nausea. Vital Signs: 10:28 BP 183 / 79; Pulse 83; Resp 16; Temp 97.8; Pulse Ox 97% on R/A; Weight 72.57 kg; Height iw 5 ft. 2 in. ; Pain 2/10; 11:30 BP 137 / 74; Pulse 78; Resp 16; Pulse Ox 98% ; Pain 2/10; cm10 10:28 Body Mass Index 29.26 (72.57 kg, 157.48 cm) iw 10:28 Pain Scale: Adult iw 11:30 Pain Scale: Adult cm10 Joceline Coma Score: 11:49 Eye Response: spontaneous(4). Motor Response: obeys commands(6). Verbal Response: kb oriented(5). Total: 15. ED Course: 10:20 Patient arrived in ED. im 10:20 Mary Kate Medina FNP-C is [facility]. kb 10:20 Rodriguez Castellon MD is Attending Physician. kb 10:28 Triage completed. iw 10:29 Arm band placed on. iw 10:34 Margot Diaz, IRINEO is Primary Nurse. cm10 11:12 Hand Right 3 View XRAY In Process Unspecified. EDMS 11:15 CT Head C Spine In Process Unspecified. EDMS 11:30 Patient has correct armband on for positive identification. Bed in low position. Call cm10 light in reach. Side rails up X 1. Pulse ox on. NIBP on. 11:40 No provider procedures requiring assistance completed. Patient did not have IV access cm10 during this emergency room visit. 12:05 Provided Education on: follow-up. cm10 Administered Medications: 10:57 Drug: Ondansetron Oral Disintegrating Tablet Oral Disintegrating Tablet 4 mg PO once cm10 Route: PO; 11:27 Follow up: Response: No adverse reaction; Nausea is decreased cm10 Medication: 11:30 VIS not applicable for this client. cm10 Outcome: 11:51 Discharge ordered by . karlos 12:05 Discharged to home ambulatory, cm10 12:05 Condition: good 12:05 Discharge instructions given to patient, Instructed on discharge instructions, follow up and referral plans. Demonstrated understanding of instructions, follow-up care, 12:06 Patient left the ED. cm10 Signatures: Dispatcher [employer] EDMary Kate Winston, IP LITIGATION PARALEGAL-C WILBUR-Cher Peralta, IRINEO CABELLO Theresa Chris Clarissa RN RN cm10
[2024-12-08 16:53] VITALS: TEMP 97.8
[2024-12-08 16:55] VITALS: BP 137/74; O2SAT 98
== END 2024-12-06 12:06 | disposition home or self-care (01) ==
LOC: ER 10:17
DX: S09.90XA Unspecified injury of head, initial encounter (principal); M79.641 Pain in right hand; I63.9 Cerebral infarction, unspecified; W18.30XA Fall on same level, unspecified, initial encounter; Z95.818 Presence of other cardiac implants and grafts
CPT/HCPCS: 70450; 72125; 73130; 99283; Q0162

== ENCOUNTER 2024-12-19 19:03 | Emergency (ER) | payer OTHER ==
--- OUTSIDE RECORDS SUMMARY | 2024-12-19 19:14 | XMS REPORT | Continuity of Care Document ---
Author Name Unknown Address [address] [facility]. [address] [place] [address] [facility] Address [address] [facility] [address] [place] [address] Care Team Providers Care Top Case Assembler Name Role Phone JOSE E ROWE Primary Care Physician UnavailJihan Green Attending Clinician Unavailable NICOLAS RITTER Attending Clinician UnavailToño Hunt Attending Clinician Unavailable Hollie Cheung Attending Clinician Unavailable NATALIE SUAREZ Attending Clinician Unavailable NATALIE SUAREZ Attending Clinician Unavailable Natalie Suarez MD Attending Clinician [phone] Heaven CABELLO, Alma Delia Zheng Attending Clinician Unavail able HEVER RICCI Attending Clinician Unavailab HEVER Sims Attending Clinician Unavailab kyara Oh MD, Rosalva Mejia Attending Clinician + [phone] Nichole FLORES, Jay Attending Clinician [phone] Keith Baker MD, Hever Attending Clinician [phone] Tracy FLORES, Jeremiah Attending Clinician [phone] Zia Recio Attending Clinician Unavailable Caitlin Wood Attending Clinician Unavailab NELY Hernandez Attending Clinician Unavailable Nely Scott NP Attending Clinician [phone] Doctor Unassigned, Gro[place] Attending Clinician U navailable Rosalinda Cr Attending Clinician Unavailable Nicolas Ritter MD Attending Clinician [phone] Only, Adc Test Attending Clinician Unavailable Pob, [facility] Main Attending Clinician Unavailabl e Estefany Iglesias CRNAnyl T Attending Clinician + [phone] SYLVIA IGLESIAS T Attending Clinician UnavailMirian El MD Attending Clinician [phone] MIRIAN SEO Attending Clinician Unavailpriscilla e RADIOLOGY Attending Clinician Unavailable Radiology Attending Clinician Unavailable NICOLAS RITTER Admitting Clinician Unavailab ROSALVA Estrella Admitting Clinician Doc Oh MD, Rosalva Mejia Admitting Clinician + [phone] Jihan Calixto Admitting Clinician Unavailable Rosalinda Cr Admitting Clinician Unavailable NELY SCOTT Admitting Clinician Unavailable Physician, No Primary or Family Admitting Clinic giovanny Unavailable Nicolas Ritter MD Admitting Clinician [phone] JIHAN CALIXTO Admitting Clinician Unavailable Payers Payer Name Policy Type Policy Number Effective Date Expirati on Date Source [facility] [id number] 2021 00:00:00 [employer] MEDICARE ADVANTAGE [facility] 53 [id number] 2020 00:00:00 [facility] Problems Condition Name Condition Details Condition Category Status Onset Date Resolution Date Last Treatment Date Treating Clinician Comments Source NSTEMI (non-ST elevated myocardial infarction ) NSTEMI (non-ST elevated myocardial infarction ) Disease Active 2-15 00:00: 00 [facility] Primary hypothyroi dism Primary hypothyroi dism Disease Active 612 00:00: 00 [facility] Arm laceration Arm laceration Disease Active 12-06 00:00: 00 [facility] Obesity (BMI 30-39.9) Obesity (BMI 30-39.9) Disease Active 12-06 00:00: 00 [facility] Hypokalemi a Hypokalemi a Disease Active 05-03 00:00: 00 [facility] Type 2 diabetes mellitus with diabetic chronic kidney disease Type 2 diabetes mellitus with diabetic chronic kidney disease Disease Active 05-03 00:00: 00 [facility] Sleep disorder breathing Sleep disorder breathing Disease Active 04-06 00:00: 00 [facility] Atypical chest pain Atypical chest pain Disease Active 04-06 00:00: 00 [facility] Gouty arthritis Gouty arthritis Disease Active 03-30 00:00: 00 [facility] Hyperurice jatin Hyperurice jatin Disease Active 03-30 00:00: 00 [facility] Encounter for long-term (current) use of other high-risk medication s Encounter for long-term (current) use of other high-risk medication s Disease Active 03-30 00:00: 00 [facility] Osteoarthr itis, generalize d Osteoarthr itis, generalize d Disease Active 03-30 00:00: 00 [facility] CKD (chronic kidney disease) stage 3, GFR 30-59 ml/min CKD (chronic kidney disease) stage 3, GFR 30-59 ml/min Disease Active 03-30 00:00: 00 [facility] Gouty arthritis Gouty arthritis Disease Active 03-30 00:00: 00 [facility] Encounter for long-term (current) use of other high-risk medication s Encounter for long-term (current) use of other high-risk medication s Disease Active 03-30 00:00: 00 [facility] Hypernatre jatin Hypernatre jatin Disease Active 03-02 00:00: 00 [facility] Chronic kidney disease (CKD) stage G3b/A3, moderately decreased glomerular filtration rate (GFR) between 30-44 mL/min/1.7 3 square meter and albuminuri a creatinine ratio greater than 300 mg/g Chronic kidney disease (CKD) stage G3b/A3, moderately decreased glomerular filtration rate (GFR) between 30-44 mL/min/1.7 3 square meter and albuminuri a creatinine ratio greater than 300 mg/g Disease Active 12-26 00:00: 00 [facility] [id number] Chronic gout without tophus, unspecifie d cause, unspecifie d site Problem [facility] [id number] Hypertensi on, unspecifie d type Problem [facility] Impaired memory Impaired memory Problem [facility] Osteoporos is Other osteoporos is Problem [facility] Sinus problem Sinus problem Problem [facility] [id number] Chronic kidney disease, unspecifie d CKD stage Problem [facility] [id number] 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 Problem [facility] [id number] Skin lesions Problem [facility] [id number] Constipati on, unspecifie d constipati on type Problem [facility] [id number] Gastroesop hageal reflux disease, esophagiti s presence not specified Problem [facility] [id number] Abnormal kidney function Problem [facility] [id number] Chest pain, unspecifie d type Problem [facility] [id number] Status post fall Problem [facility] [id number] HDL deficiency Problem [facility] [id number] Mastalgia Problem [facility] [id number] Coccygeal pain Problem [facility] [id number] Left leg pain Problem [facility] Abnormal mammogram Abnormal mammogram Problem [facility] [id number] Abnormalit y on screening test Problem [facility] [id number] Peripheral edema Problem [facility] [id number] Left arm pain Problem [facility] [id number] 91828 Watery eyes Problem [facility] [id number] Shortness of breath Problem [facility] [id number] Acute pain of left shoulder Problem [facility] [id number] Acute pharyngiti s, unspecifie d etiology Problem [facility] [id number] Swelling Problem [facility] Dyspepsia Dyspepsia Problem [facility] [id number] Chronic kidney disease, stage 4 (severe) Problem [facility] [id number] Postmenopa usal atrophic vaginitis Problem [facility] [id number] Hypomagnes emia Problem [facility] 255851851 Suprapubic abdominal pain Problem [facility] [id number] Type 2 diabetes mellitus with diabetic chronic kidney disease Problem [facility] 384407632 Seasonal allergies Problem [facility] 251961123 History of colon polyps Problem [facility] [id number] Bello's esophagus without dysplasia Problem [facility] 04486874 Other chronic pain Problem [facility] [id number] Type 2 diabetes mellitus with hyperglyce jatin Problem [facility] Hyperlipid aemia Hyperlipem ia Problem [facility] 36992927 Hypothyroi dism, unspecifie d type Problem [facility] 30691753 Sea sickness, initial encounter Problem [facility] [id number] 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 Problem [facility] [id number] Cough Problem [facility] Allergic rhinitis Allergic rhinitis Problem [facility] Diabetes mellitus without complicati on Diabetes DMII without complicati ons Problem [facility] Essential hypertensi on Essential hypertensi on Problem [facility] Edema Edema Problem [facility] 41927434 Hypercalce jatin Problem [facility] Hyperkalem ia Hyperkalem ia Disease Resolve d 12-26 00:00: 00 2016-01-29 00:00:00 2016-01-29 11:00:06 [facility] Allergies, Adverse Reactions, Alerts Allergy Name Allergy Type Status Severity Reaction(s) Onset Date Inactive Date Treating Clinician Comments Source Penicill ins DA Active MO RASH 2016-08 00:00: 00 [facility] Penicill ins Propensi ty to adverse reaction s Active Rash 02-07 00:00: 00 [facility] PENICILL INS Drug Class Active Rash 02-07 00:00: 00 [facility] Penicill ins Propensi ty to adverse reaction s Active Rash 02-07 00:00: 00 [facility] Penicill ins Propensi ty to adverse reaction s Active Rash 02-07 00:00: 00 [facility] 0 Drug allergy Active Unknown [facility] Social History Social Habit Start Date Stop Date Quantity Comments Source History of Tobacco Use [facility] intake 2024-09-29 00:00:00 2024-09-29 00:00:00 Current non-drinker of alcohol (finding) [facility] Exposure to SARS-CoV-2 (event) 2022-03-30 00:00:00 2022-04-09 12:54:00 Not sure [facility] Alcohol intake 2022-04-09 00:00:00 2022-04-09 00:00:00 Current non-drinker of alcohol (finding) [facility] History of Social function 2022-03-01 00:00:00 2022-03-01 00:00:00 [facility] Tobacco use and exposure 2016-03-07 00:00:00 2016-03-07 00:00:00 Smokeless tobacco non-user [facility] Smoking Status Start Date Stop Date Source Never smoked tobacco [facility] Medications Ordered Medication Name Filled Medication Name Start Date Stop Date Current Medication? Ordering Clinician Indication Dosage Frequency Signature (SIG) Comments Components Source metoprolol succinate XL 25 mg 24 hr tablet 10-02 00:00: 00 10-01 00:00 :00 Yes [id number] 12.5mg Take 0.5 tablets by mouth in the morning. [facility] levothyroxi ne 50 mcg tablet 10-01 16:05: 40 Yes [id number] 50ug Take 1 tablet by mouth every morning. [facility] glipiZIDE 2.5 mg Tab 10-01 16:05: 40 Yes 2.5mg Take 2.5 mg by mouth in the morning. [facility] ergocalcife rol, vitamin D2, (VITAMIN D ORAL) 10-01 16:05: 40 10-01 00:00 :00 Yes 1000mg Take 1,000 mg by mouth in the morning. [facility] metoprolol succinate XL (TOPROL XL) tablet 12.5 mg 10-01 15:00: 00 10-02 00:05 :51 No 12.5mg 12.5 mg, Oral, DAILY, First dose on Sun10/01/24 at 0900, Until Discontinu ed, Routine [facility] apixaban (ELIQUIS) tablet 5 mg 10-01 15:00: 00 10-01 22:05 :40 No 5mg 5 mg, Oral, BID, First dose on Sun10/01/24 at 0900, Until Discontinu ed, Routine, Indication s: DVT/PE [facility] iodixanoL (VISIPAQUE 320-50 mL) injection 10-01 14:08: 13 10-01 14:20 :52 No ONCE INTRA PROCEDURE, Starting on Sun10/01/24 at 0808, Until Sun10/01/24 at 0820, Routine, CV Intraproce dure [facility] nitroglycer in (TRIDIL) 2 mg in 10 mL D5W for Cardiac Cath 10-01 13:40: 00 10-01 14:20 :52 No ONCE INTRA PROCEDURE, Starting on Sun10/01/24 at 0740, Until Sun10/01/24 at 08, Routine, CV Intraproce dure [facility] heparin 1,000 unit/mL injection 10-01 13:40: 00 10-01 14:20 :52 No ONCE INTRA PROCEDURE, Starting on Sun10/01/24 at 0740, Until Sun10/01/24 at 08, Routine, CV Intraproce dure [facility] lidocaine 1% (XYLOCAINE) 10 mg/mL (1 %) injection 10-01 13:38: 00 10-01 14:20 :52 No ONCE INTRA PROCEDURE, Starting on Sun10/01/24 at 0738, Until Sun10/01/24 at 0820, Routine, CV Intraproce dure [facility] fentanyl PF (SUBLIMAZE (PF)) injection 10-01 13:37: 30 10-01 14:20 :52 No ONCE INTRA PROCEDURE, Starting on Sun10/01/24 at 0737, Until Sun10/01/24 at 0820, Routine, CV Intraproce dure [facility] midazolam (VERSED) injection 10-01 13:37: 00 10-01 14:20 :52 No ONCE INTRA PROCEDURE, Starting on Sun10/01/24 at 0737, Until Sun10/01/24 at 0820, Routine, CV Intraproce dure [facility] ASPIRIN 81 MG ORAL TAB 10-01 12:26: 03 10-01 00:00 :00 No 81mg Take 1 tablet by mouth in the morning. [facility] carvediloL 6.25 mg tablet 10-01 12:26: 03 10-01 00:00 :00 No 1 tablet with food [facility] clopidogreL (PLAVIX) 75 mg tablet 10-01 12:26: 03 10-01 00:00 :00 No 75mg Take 1 tablet by mouth in the morning. [facility] ibuprofen (MOTRIN IB) tablet 200 mg 10-01 06:49: 28 10-01 22:05 :40 No 200mg 200 mg, Oral, Q8HPRN, 2 doses, Starting on Sun10/01/24 at 0049, Until Sun10/01/24 at 1605, Routine, Pain (scale 1-3) [facility] allopurinoL 100 mg tablet 10-01 00:00: 00 Yes [id number] 100mg Take 1 tablet by mouth in the morning. [facility] apixaban (ELIQUIS) 5 mg tablet 10-01 00:00: 00 10-01 00:00 :00 Yes [id number] 5mg Take 1 tablet by mouth in the morning and 1 tablet in the evening. Indication s: DVT prevention , LV Thrombus [facility] atorvastati n 80 mg tablet 10-01 00:00: 00 10-01 00:00 :00 Yes [id number] 80mg Take 1 tablet by mouth at bedtime. [facility] polyethylen e glycol 3350 powder 17 g 09-30 18:00: 00 10-01 22:05 :40 No 17g 17 g, Oral, DAILY, First dose on Sun09/30/24 at 1200, Until Discontinu ed, Routine [facility] magnesium sulfate in water 2 gram/50 mL (4 %) infusion 2 g 09-30 14:30: 00 09-30 15:32 :00 No 2g 2 g, IV Piggyback, Administer over 60 Minutes, ONCE, 1 dose, On Sun09/30/24 at 0830, Routine [facility] apixaban (ELIQUIS) 5 mg tablet 09-30 00:00: 00 10-01 00:00 :00 No [id number] 5mg Take 1 tablet by mouth in the morning and 1 tablet in the evening. Indication s: DVT prevention , LV Thrombus [facility] iopamidol (ISOVUE 370-500 mL) injection 80 mL 09-29 21:30: 00 09-29 20:35 :00 No [id number] 80mL 80 mL, Intravenou s, ONCE, 1 dose, On Sun09/29/24 at 1530, Routine [facility] LORazepam (ATIVAN) tablet 0.5 mg 09-29 16:34: 31 10-01 22:05 :40 No .5mg 0.5 mg, Oral, PRN, 2 doses, Starting on Sun09/29/24 at 1034, Until Sun10/01/24 at 1605, Routine, Anxiety [facility] NaCl 0.9% (NS) bolus infusion 250 mL 09-29 16:30: 00 09-29 18:10 :00 No 250mL at 100 mL/hr, 250 mL, IV Piggyback, ONCE, 1 dose, On Sun09/29/24 at 1030, STAT [facility] metoprolol tartrate (LOPRESSOR) tablet 50 mg 09-29 16:30: 00 09-29 17:03 :00 No 50mg 50 mg, Oral, ONCE, 1 dose, On Sun09/29/24 at 1030, Routine [facility] heparin 25,000 Units/250 mL (Premixed Bag) in [...] ant therapy. Range, Dosing and Testing: FOR [facility], AND [facility] ONLY - aPTT < 35: Bolus 5000 [...] once therapeuti c levels are reached. FOR [facility] ONLY - aPTT < 40: Bolus 5000 [...] ADJUST INITIAL BOLUS OR INITIAL INFUSION RATE. [facility] aspirin chewable tablet 81 mg 09-29 15:00: 00 10-01 22:05 :40 No 81mg 81 mg, Oral, DAILY, First dose on Sun09/29/24 at 0900, Until Discontinu ed, Routine [facility] sennosides (SENOKOT) tablet 8.6 mg 09-29 15:00: 00 10-01 22:05 :40 No 8.6mg 8.6 mg, Oral, DAILY, First dose on Sun09/29/24 at 0900, Until Discontinu ed, Routine [facility] insulin glargine (LANTUS U-100) injection 20 Units 09-29 15:00: 00 10-01 22:05 :40 No 20U 20 Units, Subcutaneo us, DAILY, First dose (after last modificati on) on Sun09/29/24 at 0900, Until Discontinu ed [facility] magnesium sulfate in water 2 gram/50 mL (4 %) infusion 2 g 09-29 14:30: 00 09-29 15:18 :00 No 2g 2 g, IV Piggyback, Administer over 60 Minutes, ONCE, 1 dose, On Sun09/29/24 at 0830, Routine [facility] NaCl 0.9% (NS) bolus infusion 250 mL 09-29 13:31: 00 09-29 14:21 :05 No 250mL at 999 mL/hr, 250 mL, IV Piggyback, ONCE, 1 dose, On Sun09/29/24 at 0745, STAT [facility] atorvastati n (LIPITOR) tablet 80 mg 09-29 03:00: 00 10-02 00:05 :51 No 80mg 80 mg, Oral, QHS, First dose on Sun09/28/24 at 2100, Until Discontinu ed, Routine [facility] perflutren protein-A microsphr (OPTISON) injection 3 mL 09-28 22:45: 00 09-28 22:45 :00 No [id number] 3mL 3 mL, IV Push, ONCE, 1 dose, On Sun09/28/24 at 1645, Routine [facility] Saline Bubble Study 09-28 22:31: 20 10-01 22:05 :40 No [id number] 6mL 6 mL, Injection, SEE-INSTRU CTIONS, Starting on Sun09/28/24 at 1631, Until Sun10/01/24 at 1605, Routine [facility] NaCl 0.9% (NS) IV infusion 500 mL 09-28 17:30: 00 09-29 12:22 :56 No 500mL at 100 mL/hr, IV Infusion, CONTINUOUS , Starting on Sun09/28/24 at 1130, Until Sun09/29/24 at 0622, Routine [facility] iopamidol (ISOVUE 370-500 mL) injection 70 mL 09-28 15:20: 00 09-28 15:20 :00 No [id number] 70mL 70 mL, Intravenou s, ONCE, 1 dose, On Sun09/28/24 at 0930, Routine [facility] NaCl 0.9% (NS) injection 5 mL 09-28 15:08: 22 10-01 22:05 :40 No 5mL 5 mL, Slow IV Push, PRN - SEE INSTRUCTIO NS, Starting on Sun09/28/24 at 0908, Until Sun10/01/24 at 1605, 10 mL [facility] allopurinoL (ZYLOPRIM) tablet 100 mg 09-28 15:00: 00 10-01 22:05 :40 No 100mg 100 mg, Oral, DAILY, First dose on Sun09/28/24 at 0900, Until Discontinu ed, Routine [facility] isosorbide mononitrate (IMDUR) 24 hr tablet 30 mg 09-28 15:00: 00 09-30 14:21 :46 No 30mg 30 mg, Oral, DAILY, First dose on Sun09/28/24 at 0900, Until Discontinu ed [facility] insulin glargine (LANTUS U-100) injection 24 Units 09-28 15:00: 00 09-29 12:32 :22 No 24U 24 Units, Subcutaneo us, DAILY, First dose on 09/28/24 at 0900, Until Discontinu ed [facility] lisinopriL (PRINIVIL,Z ESTRIL) tablet 10 mg 09-28 15:00: 00 09-29 14:03 :40 No 10mg 10 mg, Oral, DAILY, First dose on 09/28/24 at 0900, Until Discontinu ed, Routine [facility] clopidogreL (PLAVIX) 75 mg tablet 75 mg 09-28 15:00: 00 09-29 22:06 :02 No 75mg 75 mg, Oral, DAILY, First dose on 09/28/24 at 0900, Until Discontinu ed, Routine [facility] aspirin EC tablet 81 mg 09-28 15:00: 00 09-29 14:27 :09 No 81mg 81 mg, Oral, DAILY, First dose on 09/28/24 at 0900, Until Discontinu ed [facility] Sliding Scale Insulin - Lispro (HumaLOG) 09-28 14:00: 00 10-01 22:05 :40 No Subcutaneo us, TID MEALS+HS, First dose on 09/28/24 at 0800, Until Discontinu ed, Routine [facility] carvediloL (COREG) tablet 6.25 mg 09-28 14:00: 00 09-29 14:03 :40 No 6.25mg 6.25 mg, Oral, BID MEALS, First dose on 09/28/24 at 0800, Until Discontinu ed, Routine [facility] levothyroxi ne (SYNTHROID) tablet 50 mcg 09-28 12:00: 00 10-01 22:05 :40 No 50ug 50 mcg, Oral, QAM-0600, First dose on 09/28/24 at 0600, Until Discontinu ed, Routine [facility] magnesium sulfate in water 4 gram/50 mL (8 %) IV Piggyback 4 g 09-28 07:45: 00 09-28 09:19 :00 No 4g 4 g, IV Piggyback, at 25 mL/hr Administer over 120 Minutes, ONCE, 1 dose, On 09/28/24 at 0145, [facility] 25,000 Units/250 mL (Premixed Bag) in [...] ant therapy. Range, Dosing and Testing: FOR [facility], AND [facility] ONLY - aPTT < 35: Bolus 5000 [...] once therapeuti c levels are reached. FOR [facility] ONLY - aPTT < 40: [...] INITIAL BOLUS OR INITIAL INFUSION RATE. [facility] heparin (1,000 unit/mL, 10 mL vial) for Rebolusing 09-28 03:21: 48 10-01 22:05 :40 No 3000U FOR REBOLUSING , Starting on 09/27/24 at 2121, Until 10/01/24 at 1605, Routine, Dosing based on aPTT testing parameters (refer to continuous heparin drip order). [facility] nitroglycer in (NITROSTAT) sublingual tablet 0.4 mg 09-28 03:19: 48 10-01 22:05 :40 No .4mg 0.4 mg, Sublingual , Q5MIN PRN, Starting on 09/27/24 at 2119, Until 10/01/24 at 1605, Routine, Chest pain [facility] glucagon HCL injection 1 mg 09-28 03:12: 00 10-01 22:05 :40 No 1mg 1 mg, Intramuscu lar, PRN, Starting on 09/27/24 at 2112, Until 10/01/24 at 1605, JEFF, Low blood sugar, Blood Glucose < or = 70 mg/dL and patient is NPO, unable to swallow or has mental changes. [facility] dextrose 50 % in water (D50W) injection 25 mL 09-28 03:12: 00 10-01 22:05 :40 No 25mL 25 mL, Slow IV Push, PRN, Starting on 09/27/24 at 2112, Until Sun10/01/24 at 1605, JEFF, Blood Glucose < or = 70 mg/dL and patient is NPO, unable to swallow or has mental status changes. [facility] acetaminoph en (TYLENOL) tablet 650 mg 16 03:06: 43 10-01 22:05 :40 No 650mg 650 mg, Oral, Q6HPRN, Starting on 09/27/24 at 2106, Until Sun10/01/24 at 1605, Routine, Pain (scale 1-3) [facility] atorvastati n 40 mg tablet 09-27 21:20: 32 09-27 00:00 :00 No 40mg Take 1 tablet by mouth at bedtime. [facility] prednisoLON E acetate 1 % ophthalmic suspension drops 09-27:: 09-27 00:00 :00 No 1 drop into affected eye [facility] SITagliptin 100 mg tablet 09-27:20: 09-27 00:00 :00 No 1 tablet [facility] aspirin (ASPIR-81) 81 mg EC tablet 09-27:: 09-27 00:00 :00 No 1 tablet [facility] linaGLIPtin (TRADJENTA) 5 mg tablet 09-27:: 09-27 00:00 :00 No 1 tablet [facility] pantoprazol e 40 mg EC tablet 09-27:: 09-27 00:00 :00 No 1 tablet [facility] atorvastati n 40 mg tablet 04-09 13:05: 04 Yes 40mg Take 40 mg by mouth at bedtime. [facility] SITagliptin 100 mg tablet 04-09 13:02: 31 Yes 1 tablet [facility] sulfamethox azole-trime thoprim (BACTRIM DS) 800-160 mg per tablet 04-09 12:47: 20 04-09 00:00 :00 No 1 tablet [facility] aspirin (ASPIR-81) 81 mg EC tablet 04-09 12:46: 30 Yes 1 tablet [facility] neomycin-po lymyxin-dex amethasone (MAXITROL) 3.5 mg/g-10,000 unit/g-0.1 % ophthalmic ointment 03-01 14:10: 00 03-01 14:22 :00 No PRN, Starting on Sun03/01/22 at 0910, Until Sun03/01/22 at 09, Routine, Intra-op [facility] dexamethaso ne (DECADRON PHOSPHATE) injection 03-01 14:09: 00 03-01 14:22 :00 No PRN, Starting on Sun03/01/22 at 0909, Until Sun03/01/22 at 09, Routine, Intra-op [facility] ceFAZolin (ANCEF) injection 03-01 14:09: 00 03-01 14:22 :00 No PRN, Starting on Sun03/01/22 at 0909, Until Sun03/01/22 at 09, JEFF, Intra-op [facility] carbachoL (MIOSTAT) 0.01 % intraocular injection 03-01 14:08: 00 03-01 14:22 :00 No PRN, Starting on Sun03/01/22 at 0908, Until Sun03/01/22 at 09, Routine, Intra-op [facility] chondroitin sulf-sod hyaluronate (DUOVISC VISCO ELASTIC) intraocular injection 03-01 14:08: 00 03-01 14:22 :00 No PRN, Starting on Sun03/01/22 at 0908, Until Sun03/01/22 at 09, Routine, Intra-op [facility] EPINEPHrine 1:1,000 (1 mg/mL) (ADRENALIN) injection 03-01 14:05: 00 03-01 14:22 :00 No PRN, Starting on Sun03/01/22 at 0905, Until Sun03/01/22 at 09, Routine, Intra-op [facility] balanced salt irrig soln comb1 (BSS PLUS) ophthalmic solution 500 mL bag 03-01 14:05: 00 03-01 14:22 :00 No PRN, Starting on Sun03/01/22 at 0905, Until Sun03/01/22 at 09, Routine, Intra-op [facility] sodium chloride (NS) injection 03-01 14:05: 00 03-01 14:22 :00 No PRN, Starting on Sun03/01/22 at 0905, Until Sun03/01/22 at 09, Routine, Intra-op [facility] [facility] water for irrigation irrigation solution 03-01 14:02: 00 03-01 14:22 :00 No PRN, Starting on Sun03/01/22 at 0902, Until Sun03/01/22 at 09, Routine, Intra-op [facility] Hyaluronida se, Human Recomb. (HYLENEX) injection 03-01 13:58: 00 03-01 14:22 :00 No PRN, Starting on Sun03/01/22 at 0858, Until Sun03/01/22 at 09, Routine, Intra-op [facility] eye block syringe 11 mL 03-01 13:58: 00 03-01 14:22 :00 No PRN, Starting on Sun03/01/22 at 0858, Until Sun03/01/22 at 09, Intra-op [facility] cyclopent 1%-tropic 1%-phenyl 2.5%-ketor 0.5% (MYDRIATIC #5) ophthalmic solution syringe 0.5 mL 03-01 13:00: 00 03-01 12:49 :00 No .5mL 0.5 mL, Right Eye, ONCE, 1 dose, On Sun03/01/22 at 0800, Routine, DSU Pre-op [facility] lactated ringers IV infusion 1,000 mL 03-01 13:00: 00 03-01 12:52 :00 No 1000mL at 42 mL/hr, 1,000 mL, IV Infusion, ONCE, 1 dose, On Sun03/01/22 at 0800, Routine, DSU Pre-op [facility] ASPIRIN 81 MG ORAL TAB 03-01 09:55: 29 Yes 81mg Take 81 mg by mouth daily. [facility] insulin glargine,jovan juarezanlog (LANTUS SC) 03-01 09:55: 29 Yes 50U inject 50 Units under the skin daily. Each morning [facility] neomycin-po lymyxin-dex amethasone (MAXITROL) 3.5 mg/g-10,000 unit/g-0.1 % ophthalmic ointment 02-15 14:31: 00 02-15 14:34 :14 No PRN, Starting on Sun02/15/22 at 0931, Until Sun02/15/22 at 0934, Routine, Intra-op [facility] sodium chloride (NS) injection 02-15 14:28: 00 02-15 14:34 :14 No PRN, Starting on Sun02/15/22 at 0928, Until Sun02/15/22 at 0934, Routine, Intra-op [facility] dexamethaso ne (DECADRON PHOSPHATE) injection 02-15 14:28: 00 02-15 14:34 :14 No PRN, Starting on Sun02/15/22 at 0928, Until Sun02/15/22 at 0934, Routine, Intra-op [facility] ceFAZolin (ANCEF) injection 02-15 14:28: 00 02-15 14:34 :14 No PRN, Starting on Sun02/15/22 at 0928, Until Sun02/15/22 at 0934, JEFF, Intra-op [facility] carbachoL (MIOSTAT) 0.01 % intraocular injection 02-15 14:26: 00 02-15 14:34 :14 No PRN, Starting on Sun02/15/22 at 0926, Until Sun02/15/22 at 0934, Routine, Intra-op [facility] EPINEPHrine 1:1,000 (1 mg/mL) (ADRENALIN) injection 02-15 14:14: 00 02-15 14:34 :14 No PRN, Starting on Sun02/15/22 at 0914, Until Sun02/15/22 at 0934, Routine, Intra-op [facility] chondroitin sulf-sod hyaluronate (DUOVISC VISCO ELASTIC) intraocular injection 02-15 14:14: 00 02-15 14:34 :14 No PRN, Starting on Sun02/15/22 at 0914, Until Sun02/15/22 at 09, Routine, Intra-op [facility] balanced salt irrig soln comb1 (BSS PLUS) ophthalmic solution 500 mL bag 02-15 14:14: 00 02-15 14:34 :14 No PRN, Starting on Sun02/15/22 at 0914, Until Sun02/15/22 at 0934, Routine, Intra-op [facility] water for irrigation irrigation solution 02-15 14:11: 00 02-15 14:34 :14 No PRN, Starting on Sun02/15/22 at 0911, Until Sun02/15/22 at 0934, Routine, Intra-op [facility] Hyaluronida se, Human Recomb. (HYLENEX) injection 02-15 14:07: 00 02-15 14:34 :14 No PRN, Starting on Sun02/15/22 at 0907, Until Sun02/15/22 at 0934, Routine, Intra-op [facility] eye block syringe 11 mL 02-15 14:07: 00 02-15 14:34 :14 No PRN, Starting on Sun02/15/22 at 0907, Until Sun02/15/22 at 0934, Intra-op [facility] cyclopent 1%-tropic 1%-phenyl 2.5%-ketor 0.5% (MYDRIATIC #5) ophthalmic solution syringe 0.5 mL 02-15 12:45: 00 02-15 12:48 :00 No .5mL 0.5 mL, Left Eye, ONCE, 1 dose, On Sun02/15/22 at 0745, Routine, DSU Pre-op [facility] lactated ringers IV infusion 1,000 mL 02-15 12:45: 00 02-15 12:59 :00 No 1000mL at 42 mL/hr, 1,000 mL, IV Infusion, ONCE, 1 dose, On Sun02/15/22 at 0745, Routine, DSU Pre-op [facility] ASPIRIN 81 MG ORAL TAB 02-15 10:11: 36 Yes 81mg Take 81 mg by mouth daily. [facility] insulin glargine,jovan [email or web address] (LANTUS SC) 02-15 10:11: 36 Yes 50U inject 50 Units under the skin daily. Each morning [facility] Omeprazole 20 MG Omeprazole 20 MG [...] morning and 20 mg in the evening. [facility] Clarithromy marciano 500 MG Clarithromy marciano [...] Units under the skin daily. Each morning [facility] ASPIRIN 81 MG ORAL TAB 02-08 11:06: 37 Yes 81mg Take 81 mg by mouth daily. [facility] Magnesium Oxide 500 MG Magnesium Oxide [...] 00 15 00:00 :00 No [facility] tablet 01-23 00:00: 00 Yes 20mg Take 1 tablet by mouth in the morning. [facility] triamcinolo ne acetonide 0.1 % cream 01-23 00:00: 00 09-27 00:00 :00 No 1{appli cator} Apply 1 Applicator to area(s) 2 (two) times daily as needed. [facility] Diclofenac Sodium 1 % gel 01-02 00:00: 00 Yes 1{appli cator} Apply 1 Applicator to area(s) as needed. [facility] cetirizine 10 mg tablet 01-02 00:00: 00 09-27 00:00 :00 No 10mg Take 10 mg by mouth daily. [facility] fluticasone propionate 50 mcg/actuati on nasal spray 12-05 00:00: 00 09-27 00:00 :00 No 2{spray } Use 2 Sprays in each nostril daily. [facility] Acyclovir 5 % Acyclovir 5 % [...] :00 No 2 gram per vaginal [facility] Bactrim DS 800-160 MG Bactrim DS 800-160 [...] 11-07 00:00: 00 No Lancets - [place] 32G X 4 MM [place] 32G X 4 MM 0 08-29 00:00: 00 No [place] 32G X 4 MM [place] 32G X 4 MM [place] 32G X 4 MM 2018-0 08-29 00:00: 00 No [place] 32G X 4 MM [place] 32G X 4 MM [place] 32G X 4 MM 2018-0 08-29 00:00: 00 No [place] 32G X 4 MM [place] 32G X 4 MM [place] 32G X 4 MM 2018-0 08-29 00:00: 00 No [place] 32G X 4 MM [place] 32G X 4 MM [place] 32G X 4 MM 2018-0 08-29 00:00: 00 No [place] 32G X 4 MM [place] 32G X 4 MM [place] 32G X 4 MM 2018-0 08-29 00:00: 00 No [place] 32G X 4 MM [place] 32G X 4 MM [place] 32G X 4 MM 2018-0 08-29 00:00: 00 No [place] 32G X 4 MM [place] 32G X 4 MM [place] 32G X 4 MM 2018-0 08-29 00:00: 00 No [place] 32G X 4 MM [place] 32G X 4 MM [place] 32G X 4 MM 2018-0 08-29 00:00: 00 No [place] 32G X 4 MM [place] 32G X 4 MM [place] 32G X 4 MM 2018-0 08-29 00:00: 00 No [place] 32G X 4 MM [place] 32G X 4 MM 2018-0 08-29 00:00: 00 No [place] 32G X 4 MM [place] 32G X 4 MM [place] 32G X 4 MM 2018-0 08-29 00:00: 00 No [place] 32G X 4 MM [place] 32G X 4 MM [place] 32G X 4 MM 2018-0 08-29 00:00: 00 No [place] 32G X 4 MM [place] 32G X 4 MM [place] 32G X 4 MM 2018-0 08-29 00:00: 00 No [place] 32G X 4 MM [place] 32G X 4 MM [place] 32G X 4 MM 2018-0 08-29 00:00: 00 No [place] 32G X 4 MM [place] 32G X 4 MM [place] 32G X 4 MM 2018-0 08-29 00:00: 00 No [place] 32G X 4 MM [place] 32G X 4 MM [place] 32G X 4 MM 08-29 00:00: 00 No [place] 32G X 4 MM metoprolol tartrate 25 mg tablet 10-16 00:00: 00 09-27 00:00 :00 No [id number] 12.5mg Take 0.5 tablets by mouth 2 (two) times daily. [facility] colchicine (COLCRYS) 0.6 mg tablet 08-13 00:00: 00 09-27 00:00 :00 No .6mg Take 1 tablet by mouth daily. [facility] SUCRALFATE 1 gram tablet 04-02 00:00: 00 09-27 00:00 :00 No [id number] TAKE ONE TABLET BY MOUTH BEFORE MEALS AND AT BEDTIME [facility] Blood-Gluco se Meter (FREESTYLE LITE METER) Kit 01-29 00:00: 00 Yes Use as directed, DX:E11.9 [facility] blood sugar diagnostic (FREESTYLE LITE STRIPS) strip 01-29 00:00: 00 Yes Use as directed, BID, Dx;E11.9 [facility] Blood-Gluco se Meter (FREESTYLE LITE METER) Kit 01-29 00:00: 00 Yes Use as directed, DX:E11.9 [facility] blood sugar diagnostic (FREESTYLE LITE STRIPS) strip 01-29 00:00: 00 Yes Use as directed, BID, Dx;E11.9 [facility] glimepiride 1 mg tablet 01-22 00:00: 00 09-27 00:00 :00 No [id number] 1mg Take 1 tablet by mouth daily with breakfast. [facility] traMADOL (ULTRAM) 50 mg tablet 10-01 00:00: 00 09-27 00:00 :00 No 50mg Take 1 tablet by mouth every 6 (six) hours as needed for Pain (scale 4-6). Davin Bowling PA-C / Eliel Bejarano MD [facility]# [id number] [facility]# [id number] x Lic.# [id number] [facility]# [id number] [facility] lisinopril (PRINIVIL,Z ESTRIL) 5 mg tablet 2015-08 00:00: 10-01 00:00 :00 No [id number] 5mg Take 1 tablet by mouth daily. [facility] allopurinol (ZYLOPRIM) 100 mg tablet 2015-08 00:00: 10-01 00:00 :00 No [id number] 200mg Take 2 tablets by mouth daily. [facility] lovastatin (MEVACOR) 20 mg tablet 2015-08 00:00: 09-27 00:00 :00 No [id number] 40mg Take 2 tablets by mouth at bedtime. [facility] nitroglycer in (NITROSTAT) 0.4 mg sublingual tablet 03-08 00:00: [address] 1 tablet under the tongue every 5 (five) minutes as needed for Chest pain. [facility] acetaminoph en-codeine (TYLENOL #3) 300-30 mg tablet 01-10 00:00: 00 09-27 00:00 :00 No 1{tbl} Take 1 tablet by mouth at bedtime. [facility] chlorhexidi ne (PERIDEX) 0.12 % mouthwash 12-26 00:00: 09-27 00:00 :00 No [id number] 15mL Swish and spit out 15 mL 2 (two) times daily. [facility] albuterol (VENTOLIN HFA) 90 mcg/actuati on inhaler 2014-08 00:00: 00 09-27 00:00 :00 No 2{puff} Inhale 2 Puffs every 6 (six) hours as needed for Wheezing or Shortness of Breath. [facility] Famotidine 20 MG Famotidine 20 MG No 1{table t} Famotidine 20 MG Chlorhexidi ne Gluconate 0.12 % Chlorhexidi ne Gluconate 0.12 % No Chlorhexid ine Gluconate 0.12 % Flonase 50 MCG/ACT Flonase 50 MCG/ACT No [...] No 1{table t} QD Lisinopril 5 MG Albuterol Sulfate HFA 108 (90 Base) MCG/ACT Albuterol Sulfate HFA 108 (90 Base) MCG/ACT No 2{puffs _as_nee ded} QID Albuterol Sulfate HFA 108 (90 Base) MCG/ACT Januvia 100 MG Januvia 100 MG No 1{table t} QD Januvia 100 MG Chlorhexidi ne Gluconate 0.12 % Chlorhexidi ne Gluconate 0.12 % No Chlorhexid ine Gluconate 0.12 % Sucralfate 1 GM Sucralfate 1 GM No 1{table t_as_ne eded} Sucralfate 1 GM Bactrim DS 800-160 MG Bactrim DS 800-160 MG No 1{table t} BID Bactrim DS 800-160 MG Lisinopril 5 MG Lisinopril 5 MG No 1{table t} QD Lisinopril 5 MG Famotidine 20 MG Famotidine 20 MG No 1{table t} Famotidine 20 MG Metoprolol Tartrate 25 MG Metoprolol Tartrate 25 [...] No 1{table t} QD Lisinopril 5 MG Lovastatin 20 MG Lovastatin 20 MG No Lovastatin 20 MG Bactrim DS 800-160 MG Bactrim DS 800-160 MG No 1{table t} BID Bactrim DS 800-160 MG Lantus SoloStar 100 UNIT/ML Lantus SoloStar 100 UNIT/ML No QD Lantus SoloStar 100 UNIT/ML Chlorhexidi ne Gluconate 0.12 % Chlorhexidi ne Gluconate 0.12 % No Chlorhexid ine Gluconate 0.12 % Januvia 100 MG Januvia 100 MG No [...] Millender 45 units [facility] Aspir-81 81 MG Aspir-81 81 MG No [...] % No TID Diclofenac Sodium 1 % Flonase 50 MCG/ACT Flonase 50 MCG/ACT No [...] 100 MG No Allopurino l 100 MG Januvia 100 MG Januvia 100 MG [...] Tradjenta 5 MG No 1{table t} QD Chlorhexidi ne Gluconate 0.12 % Chlorhexidi [...] Albuterol Sulfate HFA 108 (90 Base) MCG/ACT Tradjenta 5 MG Tradjenta 5 MG No [...] EQ Allergy Relief (Cetirizin e) 10 MG Allopurinol 100 MG Allopurinol 100 [...] HIGH DOSE OVER 65 2021-06-02 15:49:00 Completed [facility] FLUZONE HIGH DOSE OVER 65 FLUZONE HIGH DOSE OVER 65 2021-06-02 15:49:00 Completed [facility] FLUZONE HIGH DOSE OVER 65 FLUZONE HIGH DOSE OVER 65 2021-06-02 15:49:00 Completed [facility] FLUZONE HIGH DOSE OVER 65 FLUZONE HIGH DOSE OVER 65 2021-06-02 15:49:00 Completed [facility] FLUZONE HIGH DOSE OVER 65 FLUZONE HIGH DOSE OVER 65 2021-06-02 15:49:00 Completed [facility] FLUZONE HIGH DOSE OVER 65 FLUZONE HIGH DOSE OVER 65 2021-06-02 15:49:00 Completed [facility] FLUZONE HIGH DOSE OVER 65 FLUZONE HIGH DOSE OVER 65 2021-06-02 15:49:00 Completed [facility] FLUZONE HIGH DOSE OVER 65 FLUZONE HIGH DOSE OVER 65 2021-06-02 15:49:00 Completed [facility] FLUZONE HIGH DOSE OVER 65 FLUZONE HIGH DOSE OVER 65 2021-06-02 15:49:00 Completed [facility] FLUZONE HIGH DOSE OVER 65 FLUZONE HIGH DOSE OVER 65 2021-06-02 15:49:00 Completed [facility] FLUZONE HIGH DOSE OVER 65 FLUZONE HIGH DOSE OVER 65 2021-06-02 15:49:00 Completed [facility] FLUZONE HIGH DOSE OVER 65 FLUZONE HIGH DOSE OVER 65 2021-06-02 15:49:00 Completed [facility] FLUZONE HIGH DOSE OVER 65 FLUZONE HIGH DOSE OVER 65 2021-06-02 15:49:00 Completed [facility] Moderna COVID-19 Vaccine Moderna COVID-19 Vaccine 2021-01-18 15:42:00 Completed [facility] Moderna COVID-19 Vaccine Moderna COVID-19 Vaccine 2021-01-18 15:42:00 Completed [facility] Moderna COVID-19 Vaccine Moderna COVID-19 Vaccine 2021-01-18 15:42:00 Completed [facility] Moderna COVID-19 Vaccine Moderna COVID-19 Vaccine 2021-01-18 15:42:00 Completed [facility] Moderna COVID-19 Vaccine Moderna COVID-19 Vaccine 2021-01-18 15:42:00 Completed [facility] Moderna COVID-19 Vaccine Moderna COVID-19 Vaccine 2021-01-18 15:42:00 Completed [facility] Moderna COVID-19 Vaccine Moderna COVID-19 Vaccine 2021-01-18 15:42:00 Completed [facility] Moderna COVID-19 Vaccine Moderna COVID-19 Vaccine 2021-01-18 15:42:00 Completed [facility] Moderna COVID-19 Vaccine Moderna COVID-19 Vaccine 2021-01-18 15:42:00 Completed [facility] Moderna COVID-19 Vaccine Moderna COVID-19 Vaccine 2021-01-18 15:42:00 Completed [facility] Moderna COVID-19 Vaccine Moderna COVID-19 Vaccine 2021-01-18 15:42:00 Completed [facility] Moderna COVID-19 Vaccine Moderna COVID-19 Vaccine 2021-01-18 15:42:00 Completed [facility] Moderna COVID-19 Vaccine Moderna COVID-19 Vaccine 2020-12-30 08:59:00 Completed [facility] Moderna COVID-19 Vaccine Moderna COVID-19 Vaccine 2020-12-30 08:59:00 Completed [facility] Moderna COVID-19 Vaccine Moderna COVID-19 Vaccine 2020-12-30 08:59:00 Completed [facility] Moderna COVID-19 Vaccine Moderna COVID-19 Vaccine 2020-12-30 08:59:00 Completed [facility] Moderna COVID-19 Vaccine Moderna COVID-19 Vaccine 2020-12-30 08:59:00 Completed [facility] Moderna COVID-19 Vaccine Moderna COVID-19 Vaccine 2020-12-30 08:59:00 Completed [facility] Moderna COVID-19 Vaccine Moderna COVID-19 Vaccine 2020-12-30 08:59:00 Completed [facility] Moderna COVID-19 Vaccine Moderna COVID-19 Vaccine 2020-12-30 08:59:00 Completed [facility] Moderna COVID-19 Vaccine Moderna COVID-19 Vaccine 2020-12-30 08:59:00 Completed [facility] Moderna COVID-19 Vaccine Moderna COVID-19 Vaccine 2020-12-30 08:59:00 Completed [facility] Moderna COVID-19 Vaccine Moderna COVID-19 Vaccine 2020-12-30 08:59:00 Completed [facility] Moderna COVID-19 Vaccine Moderna COVID-19 Vaccine 2020-12-30 08:59:00 Completed [facility] Moderna COVID-19 Vaccine Moderna COVID-19 Vaccine 2020-12-30 08:59:00 Completed [facility] Moderna COVID-19 Vaccine Moderna COVID-19 Vaccine 2020-12-30 08:59:00 Completed [facility] Moderna COVID-19 Vaccine Moderna COVID-19 Vaccine 2020-12-28 15:42:00 Completed [facility] Moderna COVID-19 Vaccine Moderna COVID-19 Vaccine 2020-12-28 15:42:00 Completed [facility] Influenza Virus Vaccine Quad IM 3+ YRS 2016-05-17 00:00:00 Completed [facility] Influenza Virus Vaccine Quad IM 3+ YRS 2016-05-17 00:00:00 Completed [facility] Influenza Virus Vaccine Quad IM 3+ YRS 2016-05-17 00:00:00 Completed [facility] Influenza Virus Vaccine Quad IM 3+ YRS 2016-05-17 00:00:00 Completed [facility] Influenza Virus Vaccine Quad IM 3+ YRS 2016-05-17 00:00:00 Completed [facility] Influenza Virus Vaccine Quad IM 3+ YRS 2016-05-17 00:00:00 Completed [facility] Influenza Virus Vaccine Quad IM 3+ YRS 2016-05-17 00:00:00 Completed [facility] Influenza Virus Vaccine Quad IM 3+ YRS 2016-05-17 00:00:00 Completed [facility] Influenza Virus Vaccine Quad IM 3+ YRS 2016-05-17 00:00:00 Completed [facility] Influenza Virus Vaccine Quad IM 3+ YRS 2016-05-17 00:00:00 Completed [facility] Influenza Virus Vaccine Quad IM 3+ YRS 2016-05-17 00:00:00 Completed [facility] Influenza Virus Vaccine Quad IM 3+ YRS 2016-05-17 00:00:00 Completed [facility] Influenza Virus Vaccine Quad IM 3+ YRS 2016-05-17 00:00:00 Completed [facility] Influenza Virus Vaccine Quad IM 3+ YRS 2015-05-11 00:00:00 Completed Pneumococcal Polysaccharide, PPSV23 (PNEUMOVAX) 2015-05-11 00:00:00 Completed Influenza Virus Vaccine Quad IM 3+ YRS 2015-05-11 00:00:00 Completed [facility] Pneumococcal Polysaccharide, PPSV23 (PNEUMOVAX) 2015-05-11 00:00:00 Completed [facility] Influenza Virus Vaccine Quad IM 3+ YRS 2015-05-11 00:00:00 Completed [facility] Pneumococcal Polysaccharide, PPSV23 (PNEUMOVAX) 2015-05-11 00:00:00 Completed [facility] Influenza Virus Vaccine Quad IM 3+ YRS 2015-05-11 00:00:00 Completed [facility] Pneumococcal Polysaccharide, PPSV23 (PNEUMOVAX) 2015-05-11 00:00:00 Completed [facility] Influenza Virus Vaccine Quad IM 3+ YRS 2015-05-11 00:00:00 Completed [facility] Pneumococcal Polysaccharide, PPSV23 (PNEUMOVAX) 2015-05-11 00:00:00 Completed [facility] Influenza Virus Vaccine Quad IM 3+ YRS 2015-05-11 00:00:00 Completed [facility] Pneumococcal Polysaccharide, PPSV23 (PNEUMOVAX) 2015-05-11 00:00:00 Completed [facility] Influenza Virus Vaccine Quad IM 3+ YRS 2015-05-11 00:00:00 Completed [facility] Pneumococcal Polysaccharide, PPSV23 (PNEUMOVAX) 2015-05-11 00:00:00 Completed [facility] Influenza Virus Vaccine Quad IM 3+ YRS 2015-05-11 00:00:00 Completed [facility] Pneumococcal Polysaccharide, PPSV23 (PNEUMOVAX) 2015-05-11 00:00:00 Completed [facility] Influenza Virus Vaccine Quad IM 3+ YRS 2015-05-11 00:00:00 Completed [facility] Pneumococcal Polysaccharide, PPSV23 (PNEUMOVAX) 2015-05-11 00:00:00 Completed [facility] Influenza Virus Vaccine Quad IM 3+ YRS 2015-05-11 00:00:00 Completed [facility] Pneumococcal Polysaccharide, PPSV23 (PNEUMOVAX) 2015-05-11 00:00:00 Completed [facility] Influenza Virus Vaccine Quad IM 3+ YRS 2015-05-11 00:00:00 Completed [facility] Pneumococcal Polysaccharide, PPSV23 (PNEUMOVAX) 2015-05-11 00:00:00 Completed [facility] Influenza Virus Vaccine Quad IM 3+ YRS 2015-05-11 00:00:00 Completed [facility] Pneumococcal Polysaccharide, PPSV23 (PNEUMOVAX) 2015-05-11 00:00:00 Completed [facility] Influenza Virus Vaccine Quad IM 3+ YRS 2015-05-11 00:00:00 Completed [facility] Pneumococcal Polysaccharide, PPSV23 (PNEUMOVAX) 2015-05-11 00:00:00 Completed [facility] Zoster(Zostavax)( ingles) 2015-02-11 00:00:00 Completed [facility] Zoster(Zostavax)( ingles) 2015-02-11 00:00:00 Completed [facility] Zoster(Zostavax)( ingles) 2015-02-11 00:00:00 Completed [facility] Zoster(Zostavax)( ingles) 2015-02-11 00:00:00 Completed [facility] Zoster(Zostavax)([facility]) 2015-02-11 00:00:00 Completed [facility] Zoster(Zostavax)([facility]) 2015-02-11 00:00:00 Completed [facility] Zoster(Zostavax)([facility]) 2015-02-11 00:00:00 Completed [facility] Zoster(Zostavax)([facility]) 2015-02-11 00:00:00 Completed [facility] Zoster(Zostavax)([facility]) 2015-02-11 00:00:00 Completed [facility] Zoster(Zostavax)([facility]) 2015-02-11 00:00:00 Completed [facility] Zoster(Zostavax)([facility]) 2015-02-11 00:00:00 Completed [facility] Zoster(Zostavax)([facility]) 2015-02-11 00:00:00 Completed [facility] Zoster(Zostavax)([facility]) 2015-02-11 00:00:00 Completed [facility] Moderna COVID-19 Vaccine Moderna COVID-19 Vaccine Unknown Completed [facility] FLUZONE HIGH DOSE OVER 65 FLUZONE HIGH DOSE OVER 65 Unknown Completed [facility] Vital Signs Vital Name Observation Time Observation Value Comments S ource Systolic blood pressure 2024-10-15 20:27:00 136 mm[Hg] [facility] Diastolic blood pressure 2024-10-15 20:27:00 77 mm[Hg] [facility] Heart rate 2024-10-15 20:15:00 84 /min [facility] Respiratory rate 2024-10-15 20:15:00 16 /min [facility] Body height 2024-10-15 20:15:00 157.5 cm [facility] Body weight 2024-10-15 20:15:00 74.571 kg [facility] BMI 2024-10-15 20:15:00 30.07 kg/m2 [facility] Oxygen saturation in Arterial blood by Pulse oximetry 2024-10-15 20:15:00 98 /min [facility] Systolic blood pressure 2024-10-01 18:06:00 120 mm[Hg] [facility] Diastolic blood pressure 2024-10-01 18:06:00 77 mm[Hg] [facility] Heart rate 2024-10-01 18:06:00 83 /min [facility] Body temperature 2024-10-01 18:06:00 36.67 Seda [facility] Respiratory rate 2024-10-01 18:06:00 16 /min [facility] Oxygen saturation in Arterial blood by Pulse oximetry 2024-10-01 18:06:00 96 /min [facility] Body height 2024-10-01 13:19:00 157.5 cm [facility] Body weight 2024-10-01 13:19:00 74.844 kg [facility] BMI 2024-10-01 13:19:00 30.18 kg/m2 [facility] Systolic blood pressure 2024-10-01 14:25:00 113 mm[Hg] [facility] Diastolic blood pressure 2024-10-01 14:25:00 72 mm[Hg] [facility] Heart rate 2024-10-01 14:25:00 97 /min [facility] Oxygen saturation in Arterial blood by Pulse oximetry 2024-10-01 14:25:00 95 /min [facility] Respiratory rate 2024-10-01 13:36:00 18 /min [facility] Body height 2024-10-01 13:19:00 157.5 cm [facility] Body weight 2024-10-01 13:19:00 74.844 kg [facility] BMI 2024-10-01 13:19:00 30.18 kg/m2 [facility] Body temperature 2024-10-01 10:44:00 37.06 Seda [facility] Systolic blood pressure 2022-04-09 18:00:00 140 mm[Hg] [facility] Diastolic blood pressure 2022-04-09 18:00:00 82 mm[Hg] [facility] Heart rate 2022-04-09 18:00:00 63 /min [facility] Respiratory rate 2022-04-09 18:00:00 18 /min [facility] Oxygen saturation in Arterial blood by Pulse oximetry 2022-04-09 18:00:00 98 /min [facility] Body temperature 2022-04-09 17:41:00 36.56 Seda [facility] Body weight 2022-04-09 17:41:00 78.472 kg [facility] BMI 2022-04-09 17:41:00 31.63 kg/m2 [facility] height 2022-03-27 09:40:00 63.50 [in_i] Com [facility] weight 2022-03-27 09:40:00 175.0 [lb_av] Co [facility] temperature 2022-03-27 09:40:00 97.3 [degF] Com [facility] bmi 2022-03-27 09:40:00 30.51 kg/m2 Comm on [facility] oximetry 2022-03-27 09:40:00 98 % Commo n [facility] respiratory rate 2022-03-27 09:40:00 16 /min [facility] blood pressure systolic 2022-03-27 09:40:00 132 mm[Hg] [facility] blood pressure diastolic 2022-03-27 09:40:00 68 mm[Hg] [facility] height 2022-03-14 10:00:00 64.00 [in_i] Com [facility] weight 2022-03-14 10:00:00 174.4 [lb_av] Co [facility] temperature 2022-03-14 10:00:00 97.2 [degF] Com [facility] bmi 2022-03-14 10:00:00 29.93 kg/m2 Comm on [facility] oximetry 2022-03-14 10:00:00 96 % Commo n [facility] respiratory rate 2022-03-14 10:00:00 16 /min Common [facility] blood pressure systolic 2022-03-14 10:00:00 136 mm[Hg] Common [facility] blood pressure diastolic 2022-03-14 10:00:00 79 mm[Hg] [facility] Respiratory rate 2022-03-01 14:42:00 18 /min [facility] Heart rate 2022-03-01 14:41:00 70 /min Un[facility] Oxygen saturation in Arterial blood by Pulse oximetry 2022-03-01 14:41:00 99 /min [facility] Systolic blood pressure 2022-03-01 14:40:00 152 mm[Hg] [facility] Diastolic blood pressure 2022-03-01 14:40:00 80 mm[Hg] [facility] Body temperature 2022-03-01 14:25:00 36.83 Seda [facility] Body height 2022-02-22 18:55:00 157.5 cm [facility] Body weight 2022-02-22 18:55:00 78.9 kg [facility] BMI 2022-02-22 18:55:00 31.81 kg/m2 [facility] Systolic blood pressure 2022-03-01 12:51:00 161 mm[Hg] [facility] Diastolic blood pressure 2022-03-01 12:51:00 93 mm[Hg] [facility] Heart rate 2022-03-01 12:51:00 75 /min [facility] Body temperature 2022-03-01 12:51:00 36.33 Seda [facility] Respiratory rate 2022-03-01 12:51:00 14 /min [facility] Oxygen saturation in Arterial blood by Pulse oximetry 2022-03-01 12:51:00 98 /min [facility] Body height 2022-02-22 18:55:00 157.5 cm [facility] Body weight 2022-02-22 18:55:00 78.9 kg [facility] BMI 2022-02-22 18:55:00 31.81 kg/m2 [facility] Systolic blood pressure 2022-02-15 14:49:00 164 mm[Hg] [facility] Diastolic blood pressure 2022-02-15 14:49:00 89 mm[Hg] [facility] Heart rate 2022-02-15 14:49:00 70 /min Un[facility] Respiratory rate 2022-02-15 14:49:00 10 /min [facility] Oxygen saturation in Arterial blood by Pulse oximetry 2022-02-15 14:49:00 99 /min [facility] Body temperature 2022-02-15 12:46:00 36.56 Seda [facility] Body height 2022-02-03 15:18:00 157.5 cm [facility] Body weight 2022-02-03 15:18:00 78.9 kg [facility] BMI 2022-02-03 15:18:00 31.81 kg/m2 [facility] Systolic blood pressure 2022-02-15 12:53:00 160 mm[Hg] [facility] Diastolic blood pressure 2022-02-15 12:53:00 89 mm[Hg] [facility] Heart rate 2022-02-15 12:46:00 80 /min Unive [facility] Body temperature 2022-02-15 12:46:00 36.56 Seda [facility] Respiratory rate 2022-02-15 12:46:00 15 /min [facility] Oxygen saturation in Arterial blood by Pulse oximetry 2022-02-15 12:46:00 99 /min [facility] Body height 2022-02-03 15:18:00 157.5 cm [facility] Body weight 2022-02-03 15:18:00 78.9 kg [facility] BMI 2022-02-03 15:18:00 31.81 kg/m2 [facility] height 2022-01-02 09:00:00 64.00 [in_i] Com [facility] weight 2022-01-02 09:00:00 172.2 [lb_av] Co mmon [facility] temperature 2022-01-02 09:00:00 97.2 [degF] Com [facility] bmi 2022-01-02 09:00:00 29.55 kg/m2 Comm on [facility] oximetry 2022-01-02 09:00:00 98 % Commo n [facility] respiratory rate 2022-01-02 09:00:00 16 /min [facility] blood pressure systolic 2022-01-02 09:00:00 117 mm[Hg] [facility] blood pressure diastolic 2022-01-02 09:00:00 72 mm[Hg] [facility] height 2021-11-08 13:00:00 64.00 [in_i] Com [facility] weight 2021-11-08 13:00:00 170.6 [lb_av] Co mmon [facility] temperature 2021-11-08 13:00:00 97.7 [degF] Com [facility] bmi 2021-11-08 13:00:00 29.28 kg/m2 Comm on [facility] oximetry 2021-11-08 13:00:00 98 % Commo n [facility] respiratory rate 2021-11-08 13:00:00 18 /min Common [facility] blood pressure systolic 2021-11-08 13:00:00 139 mm[Hg] [facility] blood pressure diastolic 2021-11-08 13:00:00 80 mm[Hg] [facility] height 2021-10-07 14:20:00 64.00 [in_i] Com [facility] weight 2021-10-07 14:20:00 170.2 [lb_av] Co mmon [facility] temperature 2021-10-07 14:20:00 97.3 [degF] Com [facility] bmi 2021-10-07 14:20:00 29.21 kg/m2 Comm on [facility] oximetry 2021-10-07 14:20:00 100 % Commo n [facility] respiratory rate 2021-10-07 14:20:00 16 /min Common [facility] blood pressure systolic 2021-10-07 14:20:00 121 mm[Hg] [facility] blood pressure diastolic 2021-10-07 14:20:00 86 mm[Hg] Common [facility] height 2021-10-07 14:00:00 64.00 [in_i] Com [facility] weight 2021-10-07 14:00:00 170.2 [lb_av] Co mmon [facility] temperature 2021-10-07 14:00:00 97.3 [degF] Com [facility] bmi 2021-10-07 14:00:00 29.21 kg/m2 Comm on [facility] oximetry 2021-10-07 14:00:00 100 % Commo n [facility] respiratory rate 2021-10-07 14:00:00 16 /min [facility] blood pressure systolic 2021-10-07 14:00:00 121 mm[Hg] Common [facility] blood pressure diastolic 2021-10-07 14:00:00 86 mm[Hg] Common [facility] height 2021-07-14 13:00:00 64.00 [in_i] Com [facility] weight 2021-07-14 13:00:00 170.4 [lb_av] Co [facility] temperature 2021-07-14 13:00:00 98.0 [degF] Com [facility] bmi 2021-07-14 13:00:00 29.25 kg/m2 Comm on [facility] oximetry 2021-07-14 13:00:00 97 % Commo n [facility] respiratory rate 2021-07-14 13:00:00 17 /min Common [facility] blood pressure systolic 2021-07-14 13:00:00 139 mm[Hg] [facility] blood pressure diastolic 2021-07-14 13:00:00 79 mm[Hg] [facility] height 2021-06-06 16:20:00 64.00 [in_i] Com [facility] weight 2021-06-06 16:20:00 173.0 [facility]lb_av[facility] 2021-06-06 16:20:00 97.2 [degF] Com [facility] bmi 2021-06-06 16:20:00 29.69 kg/m2 Comm on [facility] oximetry 2021-06-06 16:20:00 97 % Commo n [facility] respiratory rate 2021-06-06 16:20:00 18 /min [facility] blood pressure systolic 2021-06-06 16:20:00 120 mm[Hg] [facility] blood pressure diastolic 2021-06-06 16:20:00 85 mm[Hg] [facility] height 2021-06-02 15:40:00 64.00 [in_i] Com [facility] weight 2021-06-02 15:40:00 170.8 [lb_av] [facility] 2021-06-02 15:40:00 97.1 [degF] Com [facility] bmi 2021-06-02 15:40:00 29.31 kg/m2 Comm on [facility] oximetry 2021-06-02 15:40:00 96 % Commo n [facility] respiratory rate 2021-06-02 15:40:00 18 /min Common [facility] blood pressure systolic 2021-06-02 15:40:00 124 mm[Hg] [facility] blood pressure diastolic 2021-06-02 15:40:00 80 mm[Hg] Common [facility] height 2021-04-13 11:00:00 64.00 [in_i] Com mon [facility] weight 2021-04-13 11:00:00 174 [lb_av] Comm on [facility] bmi 2021-04-13 11:00:00 29.86 kg/m2 Comm on [facility] Procedures Procedure Date / Time Performed Performing Clinician Source POCT GLUCOSE (AUTOMATED) 2024-10-01 18:43:00 Keith Baker [facility] POCT GLUCOSE (AUTOMATED) 2024-10-01 18:43:00 Keith Baker [facility] ACTIVATED PARTIAL THRMPLAS EARLENE 2024-10-01 16:36:00 [facility] ACTIVATED PARTIAL THRMPLAS EARLENE 2024-10-01 16:36:00 [facility] ACTIVATED PARTIAL THRMPLAS EARLENE 2024-10-01 15:44:00 [facility] ACTIVATED PARTIAL THRMPLAS EARLENE 2024-10-01 15:44:00 [facility] POCT GLUCOSE (AUTOMATED) 2024-10-01 15:15:00 Keith Baker [facility] POCT GLUCOSE (AUTOMATED) 2024-10-01 15:15:00 Keith Baker [facility] CATH PROCEDURE LOG 2024-10-01 14:26:23 Keith Baker [facility] CATH PROCEDURE LOG 2024-10-01 14:26:23 Keith Baker [facility] CARDIAC CATHETERIZATION 2024-10-01 14:00:00 Keith Baker [facility] CARDIAC CATHETERIZATION 2024-10-01 14:00:00 Hever Ricci [facility] MAGNESIUM 2024-10-01 10:31:00 [facility]OLIC [facility] (NA, K , CL, CO2, GLUCOSE, BUN, CREATININE, CA) 2024-10-01 10:31:00 Giuliano Olsen [facility] MAGNESIUM 2024-10-01 10:31:00 Giuliano Olsen [facility] BASIC METABOLIC PANEL (NA, K , CL, CO2, GLUCOSE, BUN, CREATININE, CA) 2024-10-01 10:31:00 Giuliano Olsen [facility] CBC WITH DIFF 2024-10-01 07:47:00 Pretty Giuliano [facility] ACTIVATED PARTIAL THRMPLAS EARLENE 2024-10-01 07:47:00 [facility] CBC WITH DIFF 2024-10-01 07:47:00 Giuliano Olsen [facility] ACTIVATED PARTIAL THRMPLAS EARLNEE 2024-10-01 07:47:00 [facility] POCT GLUCOSE (AUTOMATED) 2024-10-01 02:20:00 Nichole [facility] POCT GLUCOSE (AUTOMATED) 2024-10-01 02:20:00 Nichole [facility] ACTIVATED PARTIAL THRMPLAS EARLENE 2024-09-30 23:57:00 [facility] ACTIVATED PARTIAL THRMPLAS EARLENE 2024-09-30 23:57:00 [facility] POCT GLUCOSE (AUTOMATED) 2024-09-30 23:17:00 Nichole [facility] POCT GLUCOSE (AUTOMATED) 2024-09-30 23:17:00 Nichole [facility] POCT GLUCOSE (AUTOMATED) 2024-09-30 19:22:00 Nichole [facility] POCT GLUCOSE (AUTOMATED) 2024-09-30 19:22:00 Nichole [facility] ACTIVATED PARTIAL THRMPLAS EARLENE 2024-09-30 14:29:00 [facility] ACTIVATED PARTIAL THRMPLAS EARLENE 2024-09-30 14:29:00 [facility] POCT GLUCOSE (AUTOMATED) 2024-09-30 14:10:00 Nichole [facility] POCT GLUCOSE (AUTOMATED) 2024-09-30 14:10:00 Nichole [facility] BASIC METABOLIC PANEL (NA, K , CL, CO2, GLUCOSE, BUN, CREATININE, CA) 2024-09-30 11:35:00 Pretty Giuliano [facility] CBC WITH DIFF 2024-09-30 11:35:00 Pretty Giuliano [facility] MAGNESIUM 2024-09-30 11:35:00 Pretty [facility] BASIC METABOLIC PANEL (NA, K , CL, CO2, GLUCOSE, BUN, CREATININE, CA) 2024-09-30 11:35:00 Pretty Giuliano [facility] CBC WITH DIFF 2024-09-30 11:35:00 Pretty Giuliano [facility] MAGNESIUM 2024-09-30 11:35:00 Pretty Giuliano [facility] ACTIVATED PARTIAL THRMPLAS EARLENE 2024-09-30 02:18:00 [facility] ACTIVATED PARTIAL THRMPLAS EARLENE 2024-09-30 02:18:00 [facility] POCT GLUCOSE (AUTOMATED) 2024-09-30 02:17:00 Nichole [facility] POCT GLUCOSE (AUTOMATED) 2024-09-30 02:17:00 Nichole [facility] POCT GLUCOSE (AUTOMATED) 2024-09-29 22:36:00 Nichole [facility] POCT GLUCOSE (AUTOMATED) 2024-09-29 22:36:00 Nich[address] [facility] CT HEART W CONTRAST STRUCTURES AND CARDIAC FUNCTION (NON CORONARY) 2024-09-29 20:43:26 Alex, Sanya [facility] CT HEART W CONTRAST STRUCTURES AND CARDIAC FUNCTION (NON CORONARY) 2024-09-29 20:43:26 Sanya Johnson [facility] POCT GLUCOSE (AUTOMATED) 2024-09-29 19:38:00 [facility] 2024-09-29 19:38:00 [facility]IVATED PARTIAL THRMPLAS EARLENE 2024-09-29 18:39:00 [facility] ACTIVATED PARTIAL THRMPLAS EARLENE 2024-09-29 18:39:00 [facility] MR BRAIN WO CONTRAST 2024-09-29 17:50:58 Pretty Giuliano [facility] MR BRAIN WO CONTRAST 2024-09-29 17:50:58 Pretty Giuliano [facility] POCT GLUCOSE (AUTOMATED) 2024-09-29 15:42:00 [facility] 2024-09-29 15:42:00 [facility]OUT[facility] & RHYTHM STRIP 2024-09-29 13:59:21 [facility] HB ECG ROUTINE & RHYTHM STRIP 2024-09-29 13:59:21 [facility] BASIC METABOLIC PANEL (NA, K , CL, CO2, GLUCOSE, BUN, CREATININE, CA) 2024-09-29 11:15:00 Vu, [facility] CBC WITH DIFF 2024-09-29 11:15:00 Vu [facility] MAGNESIUM 2024-09-29 11:15:00 Vu, [facility] BASIC METABOLIC PANEL (NA, K , CL, CO2, GLUCOSE, BUN, CREATININE, CA) 2024-09-29 11:15:00 Vu, [facility] CBC WITH DIFF 2024-09-29 11:15:00 Vu [facility] MAGNESIUM 2024-09-29 11:15:00 Vu, [facility] POCT GLUCOSE (AUTOMATED) 2024-09-29 02:48:00 [facility] POCT GLUCOSE (AUTOMATED) 2024-09-29 02:48:00 [facility] POCT GLUCOSE (AUTOMATED) 2024-09-28 23:36:00 [facility] POCT GLUCOSE (AUTOMATED) 2024-09-28 23:36:00 Rosalva Oh [facility] TRANSTHORACIC ECHO (TTE) COMPLETE W/ CONTRAST 2024-09-28 22:30:48 [facility] TRANSTHORACIC ECHO (TTE) COMPLETE W/ CONTRAST 2024-09-28 22:30:48 [facility] PO[facility]SE (AUTOMATED) 2024-09-28 21:43[facility]00 [facility] 2024-09-28 21:43:00 Rosalva Oh [facility] CT STROKE ANGIOGRAM HEAD 2024-09-28 15:26:51 Olivia, [facility] CT STROKE ANGIOGRAM NECK 2024-09-28 15:26:51 Olivia, [facility] CT STROKE ANGIOGRAM HEAD 2024-09-28 15:26:51 Olivia, [facility] CT STROKE ANGIOGRAM NECK 2024-09-28 15:26:51 Olivia, [facility] CT STROKE HEAD WO CONTRAST 2024-09-28 15:26:13 Olivia, [facility] CT STROKE HEAD WO CONTRAST 2024-09-28 15:26:13 Olivia, [facility] TROPONIN I 2024-09-28 15:09:00 Terri [facility] BASIC METABOLIC PANEL (NA, K , CL, CO2, GLUCOSE, BUN, CREATININE, CA) 2024-09-28 15:09:00 Terri [facility] CBC WITHOUT DIFF 2024-09-28 15:09:00 Terri [facility] PROTHROMBIN TIME / INR 2024-09-28 15:09:00 Elnaeem [facility] ACTIVATED PARTIAL THRMPLAS EARLENE 2024-09-28 15:09:00 Ellarryem [facility] EXTRA TUBE SST 2024-09-28 15:09:00 [facility] 2024-09-28 15:09:00 Ellarry [facility] BASIC METABOLIC PANEL (NA, K , CL, CO2, GLUCOSE, BUN, CREATININE, CA) 2024-09-28 15:09:00 melyssa [facility] CBC WITHOUT DIFF 2024-09-28 15:09:00 melyssa [facility] PROTHROMBIN TIME / INR 2024-09-28 15:09:00 Elmelyssa [facility] ACTIVATED PARTIAL THRMPLAS EARLENE 2024-09-28 15:09:00 Elmelyssa [facility] EXTRA TUBE SST 2024-09-28 15:09:00 [facility]ATED) 2024-09-28 14:51:00 Rosalva Oh [facility] POCT GLUCOSE (AUTOMATED) 2024-09-28 14:51:00 Rosalva Oh [facility] TROPONIN I 2024-09-28 12:05:00 [facility] BASIC METABOLIC PANEL (NA, K , CL, CO2, GLUCOSE, BUN, CREATININE, CA) 2024-09-28 12:05:00 [facility] CBC WITH DIFF 2024-09-28 12:05:00 [facility] ACTIVATED PARTIAL THRMPLAS EARLENE 2024-09-28 12:05:00 [facility] MAGNESIUM 2024-09-28 12:05:00 [facility] TROPONIN I 2024-09-28 12:05:00 [facility] BASIC METABOLIC PANEL (NA, K , CL, CO2, GLUCOSE, BUN, CREATININE, CA) 2024-09-28 12:05:00 [facility] CBC WITH DIFF 2024-09-28 12:05:00 [facility] ACTIVATED PARTIAL THRMPLAS EARLENE 2024-09-28 12:05:00 [facility] MAGNESIUM 2024-09-28 12:05:00 [facility] MICROALBUMIN URINE 2024-09-28 09:08:00 [facility] CREATININE, URINE RANDOM 2024-09-28 09:08:00 [facility] TOTAL PROTEIN, URINE RANDOM 2024-09-28 09:08:00 [facility] MICROALBUMIN URINE 2024-09-28 09:08:00 [facility] CREATININE, URINE RANDOM 2024-09-28 09:08:00 [facility] TOTAL PROTEIN, URINE RANDOM 2024-09-28 09:08:00 [facility] LACTIC ACID WHOLE BLOOD 2024-09-28 06:21:[facility] WHOLE BLOOD 2024-09-28 06:21:00 [facility] HB ECG ROUTINE & RHYTHM STRIP 2024-09-28 04:17:58 [facility] HB ECG ROUTINE & RHYTHM STRIP 2024-09-28 [facility]17[facility]28 04:05:00 [facility] INTACT PTH CALCIUM GROUP 2024-09-28 04:05:00 [facility] PHOSPHORUS 2024-09-28 04:05:[facility] 2024-09-28 04:05:00 [facility] INTACT PTH CALCIUM GROUP 2024-09-28 04:05:00 [facility] PHOSPHORUS 2024-09-28 04:05:00 [facility] FERRITIN SERUM 2024-09-28 03:48:00 [facility] TROPONIN I 2024-09-28 03:48:00 [facility] FREE T4 2024-09-28 03:48:00 [facility] THYROID STIMULATING HORMONE 2024-09-28 03:48[facility] COMP. METABOLIC PANEL (66077) 2024-09-28 03:48:00 [facility] LIPID PANEL (71353)(TOTAL CHOLESTEROL, TRIGLYCERIDES, HDL) 2024-09-28 03:48:00 [facility] IRON PANEL 2024-09-28 03:48:00 [facility] CBC WITH DIFF 2024-09-28 03:48:00 [facility] GLYCOSYLATED HEMOGLOBIN (A1C) 2024-09-28 03:48:00 [facility] PROTHROMBIN TIME / INR 2024-09-28 03:48:00 [facility] ACTIVATED PARTIAL THRMPLAS EARLENE 2024-09-28 03:48:00 [facility] N-TERMINAL PRO-BNP 2024-09-28 03:48:00 [facility] MAGNESIUM 2024-09-28 03:48:00 [facility] FERRITIN SERUM 2024-09-28 03:48:00 [facility] TROPONIN I 2024-09-28 03:48:00 [facility] FREE T4 2024-09-28 03:48:00 [facility] THYROID STIMULATING HORMONE 2024-09-28 03:48[facility]00 [facility] COMP. METABOLIC PANEL (85414) 2024-09-28 03:48:00 [facility] LIPID PANEL (99765)(TOTAL CHOLESTEROL, TRIGLYCERIDES, HDL) 2024-09-28 03:48:00 [facility] IRON PANEL 2024-09-28 03:48:00 [facility] CBC WITH DIFF 2024-09-28 03:48:00 [facility] GLYCOSYLATED HEMOGLOBIN (A1C) 2024-09-28 03:48:00 [facility] PROTHROMBIN TIME / INR 2024-09-28 03:48:00 [facility] ACTIVATED PARTIAL THRMPLAS EARLENE 2024-09-28 03:48:00 [facility] N-TERMINAL PRO-BNP 2024-09-28 03:48:00 [facility] MAGNESIUM 2024-09-28 03:48:00 [facility] XR CHEST 1 VW 2024-09-28 03:47:00 [facility] XR CHEST 1 VW 2024-09-28 03:47:00 [facility] CT TRAUMA HEAD WO CONTRAST 2022-04-09 18:18:44 Nely Scott [facility] CT TRAUMA CERVICAL SPINE WO CONTRAST 2022-04-09 18:18:44 Nely Scott [facility] CONSENT/REFUSAL FOR DIAGNOSI S AND TREATMENT 2022-04-09 17:37:03 Doctor Unassigned, [facility] PHACOEMULSIFICATION OF CATARACT WITH INTRAOCULAR LENS IMPLANT 2022-03-01 13:48:00 Nicolas Ritter [facility] POCT GLUCOSE (AUTOMATED) 2022-03-01 12:47:00 Nicolas Ritter [facility] POCT GLUCOSE (AUTOMATED) 2022-03-01 12:47:00 Nicolas Ritter [facility] PATIENT QUESTIONNAIRE 2022-03-01 05:01:00 Doctor Unassigned, [facility] DAY SURGERY - ADC 2022-03-01 05:01:00 Doctor Unassigned, [facility] CONSENT/REFUSAL FOR DIAGNOSI S AND TREATMENT 2022-02-27 20:46:38 Doctor Unassigned, [facility] CONSENT/REFUSAL FOR DIAGNOSI S AND TREATMENT 2022-02-27 20:46:38 Doctor Unassigned, [facility] ASSIGNMENT OF BENEFITS 2022-02-27 20:46:13 Doctor Unassigned, [facility] ASSIGNMENT OF BENEFITS 2022-02-27 20:46:13 Doctor Unassigned, [facility] PHACOEMULSIFICATION OF CATARACT WITH INTRAOCULAR LENS IMPLANT 2022-02-15 13:55:00 Nicolas Ritter [facility] POCT GLUCOSE (AUTOMATED) 2022-02-15 12:58:00 Nicolas Ritter [facility] POCT GLUCOSE (AUTOMATED) 2022-02-15 12:58:00 Nicolas Ritter [facility] ASSIGNMENT OF BENEFITS 2022-02-11 13:57:55 Doctor Unassigned, [facility] CBC WITH DIFF 2022-02-08 18:45:00 Nicolas Ritter [facility] Encounters Start Date/Time End Date/Time Encounter Type Admission Type Attending [facility] Care Department Encounter ID Source 2024-10-09 11:08:00 Outpatient Jose E Rowe [facility] [id number] [place] [facility] 2024-09-19 15:51:00 Outpatient Jose E Rowe [facility] [id number] [place] [facility] 2023-11-13 15:47:00 Outpatient CALIXTO, Na [facility] [id number] [facility] 2022-07-28 08:19:00 Outpatient Calixto, Na STLMLC ST[facility] [id number] [facility] 2022-06-21 10:56:01 Outpatient Calixto, Na STLMLC ST[facility] [id number] [facility] 2022-06-12 10:53:02 Outpatient Calixto, Na STLML[facility] [id number] [facility] 2022-03-23 09:00:00 Outpatient Calixto, Na STLMLC ST[facility] [id number] [facility] 2022-01-25 09:23:50 Outpatient NICOLAS FARIAS [facility] OPH [id number] [facility] 2021-12-29 07:59:00 Outpatient Calixto, Na STLMLC ST[facility]C [id number] [facility] 2021-12-08 11:16:00 Outpatient Calixto, Na STLMLC ST[facility] [id number] [facility] 2021-11-07 11:56:01 Outpatient Calixto, Na STLMLC STL[facility]C [id number] [facility] 2021-10-25 15:44:01 Outpatient Sahara Na STLMLC STL[facility]C [id number] [facility] 2021-10-06 10:20:01 Outpatient Sahara Na STLMLC STL[facility]C [id number] [facility] [facility] 2021-09-07 12:58:36 Outpatient Jihan Calixto STLMLC STLMLC [id number] [facility] 2021-09-07 12:50:14 Outpatient Sahara Na STLMLC STLMLC [id number] [facility] 2021-09-07 12:45:37 Outpatient Calixto, Na STLMLC STLMLC [id number] [facility] 2021-09-07 12:36:24 Outpatient Calixto, Na STLMLC STLMLC [id number] [facility] 2021-09-07 12:30:55 Outpatient Calixto, Na STLMLC STLMLC [id number] [facility] 2021-09-07 12:16:19 Outpatient Calixto, Na STLMLC STLMLC [id number] [facility] 2021-09-07 12:11:08 Outpatient Toño Álvarez STJARRED STLMLC [id number] [facility] 2021-09-07 12:09:44 Outpatient Toño Álvarez STJARRED STLMLC [id number] [facility] 2021-09-07 12:04:25 Outpatient Toño Álvarez STJARRED STLC [id number] [facility] 2021-09-07 12:03:00 Outpatient Toño Álvarez STJARRED STLC [id number] [facility] 2021-09-07 11:59:43 Outpatient STJARRED STLC [id number] [facility] 2021-09-07 11:25:13 Outpatient Hollie Cheung STNIGELLC STLC [id number] [facility] 2021-09-07 11:02:15 Outpatient Hollie Cheung STLC [id number] [facility] 2021-09-07 11:01:49 Outpatient Hollie Cheung STNIGELLC STLC [id number] [facility] 2024-10-15 14:30:00 2024-10-15 15:24:57 Outpatient R NATALIE SUAREZ NATALIE [facility] [id number] [facility] 2024-10-15 14:30:00 2024-10-15 15:00:00 Office Visit Natalie Suarez [facility] 1.840.114 350.1.13.10 4.2.7.2.686 [id number] [facility] 2024-10-02 00:00:00 2024-10-02 09:32:05 Transition of Care Alma Delia Collado Kristi L [address] 1..840.114 350.1.13.10 4.2.7.2.686 [id number] [facility] 2024-09-27 18:25:00 2024-10-01 16:00:00 Inpatient X HEVER RICCI HEMFIONARI, HEVER [facility] [id number] [facility] 2024-09-27 18:25:00 2024-10-01 16:00:00 Hospital Encounter Rosalva Oh, Jay Parker Samuel Nakiaconor [facility] ([place] 1.2.840.114 350.1.13.10 4.2.7.2.686 [id number] [facility] 2024-10-01 07:30:00 2024-10-01 08:30:00 Surgery Jeremiah Molina [facility] ([place] 1.2.840.114 350.1.13.10 4.2.7.2.686 [id number] [facility] 2023-11-13 00:00:00 2023-11-13 00:00:00 (TEL) STLMLC STLMLC [id number] [facility] 2023-03-06 14:09:00 2023-03-06 18:00:00 Emergency HARLAN Zia Recio [facility] CAROLYN [id number] [facility] 2022-07-24 00:00:00 2022-07-24 00:00:00 (TEL) STLMLC STLMLC [id number] [facility] 2022-07-19 14:04:03 2022-07-19 14:04:03 Outpatient [facility] [id number] Damion Mcgrath 2022-07-12 06:31:00 2022-07-13 10:41:00 Inpatient Caitlin Esquivel [facility] MEDI.[id number] [facility] 2022-07-04 00:00:00 2022-07-04 00:00:00 (TEL) STLMLC STLMLC [id number] [facility] 2022-05-30 00:00:00 2022-05-30 00:00:00 (TEL) STLMLC STLMLC [id number] [facility] 2022-05-26 00:00:00 2022-05-26 00:00:00 (TEL) STLMLC STLMLC [id number] [facility] 2022-04-10 00:00:00 2022-04-10 00:00:00 (TEL) STLMLC STLMLC [id number] [facility] 2022-04-09 12:43:00 2022-04-09 14:01:00 Emergency X NELY SCOTT [facility] ERT [id number] [facility] 2022-04-09 12:43:00 2022-04-09 14:01:[address] [facility] 1.2.840.114 350.1.13.10 4.2.7.2.686 [id number] [facility] 2022-04-09 00:00:00 2022-04-09 00:00:00 Orders Only Doctor Unassigned, [place] [facility] 1.2.840.114 350.1.13.10 4.2.7.2.686 [id number] [facility] 2022-03-27 00:00:00 2022-03-27 00:00:00 OFFICE VISIT ESTAB PT LEVEL 4 STLMLC STLC [id number] [facility] 2022-03-20 00:00:00 2022-03-20 00:00:00 (TEL) STLC STLC [id number] [facility] 2022-03-14 23:14:00 2022 14:48:00 Inpatient EM Rosalinda Cr [id number] [facility] 2022-03-14 23:14:00 2022 14:48:00 Inpatient EM Iloanya, Nkoli HCAPM INTE.[id number] [facility] 2022-03-15 06:33:00 2022-03-15 06:33:00 Outpatient Rosalinda Cr HCACL LABO [id number] [facility] 2022-03-14 00:00:00 2022-03-14 00:00:00 OFFICE VISIT ESTAB PT LEVEL 4 STLMLC STLMLC [id number] [facility] 2022-03-01 07:39:00 2022-03-01 09:47:00 Outpatient NICOLAS FARIAS [facility] OPH [id number] [facility] 2022-03-01 07:39:00 2022-03-01 09:47:00 Hospital Encounter Nicolas Ritter [facility] 1.2.840.114 350.1.13.10 4.2.7.2.686 [id number] [facility] 2022-03-01 08:25:00 2022-03-01 08:59:00 Surgery Nicolas Ritter [facility] 1.2.840.114 350.1.13.10 4.2.7.2.686 [id number] [facility] 2022-02-27 15:00:00 2022-02-27 15:15:00 Laboratory Only Only, Adc Test Nicolas Ritter [facility] 1.2.840.114 350.1.13.10 4.2.7.2.686 [id number] [facility] 2022-02-27 15:00:00 2022-02-27 15:00:00 Outpatient NICOLAS FARIAS [facility] [id number] [facility] 2022-02-15 07:36:00 2022-02-15 09:56:00 Outpatient NICOLAS FARIAS [facility] OPH [id number] [facility] 2022-02-15 07:36:00 2022-02-15 09:56:00 Hospital Encounter Nicolas Ritter [facility] 1.2.840.114 350.1.13.10 4.2.7.2.686 [id number] [facility] 2022-02-15 08:25:00 2022-02-15 08:59:00 Surgery Nicolas Ritter [facility] 1.2.840.114 350.1.13.10 4.2.7.2.686 [id number] [facility] 2022-02-14 14:15:00 2022-02-14 14:15:00 Outpatient NICOLAS FARIAS [facility] [id number] [facility] 2022-02-14 14:15:00 2022-02-14 14:15:00 Outpatient NICOLAS FARIAS [facility] [id number] [facility] 2022-02-14 11:30:00 2022-02-14 11:45:00 Principal Administrative Clerk Visit Pob, Adc Lab Main Nicolas Ritter [facility] 1.2.840.114 350.1.13.10 4.2.7.2.686 [id number] [facility] 2022-02-14 11:30:00 2022-02-14 11:30:00 Outpatient NICOLAS FARIAS [facility] [id number] [facility] 2022-02-11 09:00:00 2022-02-11 09:15:00 Principal Administrative Clerk Visit Pob, Adc Lab Main Sylvia Iglesias [facility] 1.2.840.114 350.1.13.10 4.2.7.2.686 [id number] [facility] 2022-02-11 09:00:00 2022-02-11 09:00:00 Outpatient R SYLVIA IGLESIAS [facility] [id number] [facility] 2022-02-11 08:45:00 2022-02-11 09:00:00 Laboratory Only Only, Adc Test Mirian Seo [facility] 1.840.114 350.1.13.10 4.2.7.2.686 [id number] [facility] 2022-02-11 00:00:00 2022-02-11 00:00:00 Orders Only Doctor Unassigned, [place] [facility] 1.840.114 350.1.13.10 4.2.7.2.686 [id number] [facility] 2022-02-09 00:00:00 2022-02-09 00:00:00 [facility]EL[facility] [id number] [facility] 2022-02-08 07:45:00 2022-02-08 08:00:00 Principal Administrative Clerk Visit Pob, Adc Lab Nicolas Bustamante [facility] 1.840.114 350.1.13.10 4.2.7.2.686 [id number] [facility] 2022-02-08 07:45:00 2022-02-08 07:45:00 Outpatient NICOLAS FARIAS [facility] [id number] [facility] 2022-02-08 00:00:00 2022-02-08 00:00:00 [facility]EL[facility] [id number] [facility] 2022-02-08 00:00:00 2022-02-08 00:00:00 (TEL) STLC STLC [id number] [facility] 2022-01-30 15:15:00 2022-01-30 15:15:00 Outpatient NICOLAS FARIAS [facility] [id number] [facility] 2022-01-30 00:00:00 2022-01-30 00:00:00 Orders Only Doctor Unassigned, [place] [facility] 1.840.114 350.1.13.10 4.2.7.2.686 [id number] [facility] 2022-01-27 00:00:00 2022-01-27 00:00:00 (TEL) STLMLC STLMLC [id number] [facility] 2022-01-23 13:00:00 2022-01-23 13:15:00 Principal Administrative Clerk Visit Piper, Vicki Lab Main [facility] 1.2.840.114 350.1.13.10 4.2.7.2.686 [id number] [facility] 2022-01-23 13:00:00 2022-01-23 13:00:00 Outpatient R [facility] [id number] [facility] 2022-01-17 12:05:18 2022-01-17 23:59:00 Outpatient R RADIOLOGY [facility] [id number] [facility] 2022-01-17 12:05:18 2022-01-17 23:59:[address] [facility] 1.2.840.114 350.1.13.10 4.2.7.2.686 [id number] [facility] 2022-01-17 12:00:00 2022-01-17 12:15:00 Principal Administrative Clerk Visit Vicki Saldaña Lab [facility] 1.2.840.114 350.1.13.10 4.2.7.2.686 [id number] [facility] 2022-01-06 00:00:00 2022-01-06 00:00:00 (TEL) STLMLC STLMLC [id number] [facility] 2022-01-03 11:52:59 2022-01-03 23:59:00 Outpatient R RADIOLOGY [facility] [id number] [facility] 2022-01-03 11:52:59 2022-01-03 23:59:00 Hospital Encounter Radiology [facility] 1.2.840.114 350.1.13.10 4.2.7.2.686 [id number] [facility] 2022-01-02 00:00:00 2022-01-02 00:00:00 (TEL) STLMLC STLMLC [id number] [facility] 2022-01-02 00:00:00 2022-01-02 00:00:00 OFFICE VISIT ESTAB PT LEVEL 4 STLMLC STLMLC [id number] [facility] 2021-12-27 00:00:00 2021-12-27 00:00:00 (TEL) STLMLC STLMLC [id number] [facility] 2021-12-23 14:17:19 2021-12-23 23:59:00 Hospital Encounter Radiology [facility] 1.2.840.114 350.1.13.10 4.2.7.2.686 [id number] [facility] 2021-12-23 14:16:57 2021-12-23 14:16:57 Outpatient R RADIOLOGY [facility] [id number] [facility] 2021-12-23 14:16:57 2021-12-23 14:16:57 Hospital Encounter Radiology [facility] 1.2.840.114 350.1.13.10 4.2.7.2.686 [id number] [facility] 2021-12-06 00:00:00 2021-12-06 00:00:00 (TEL) STLMLC STLMLC [id number] [facility] 2021-11-17 13:17:58 2021-11-17 23:59:[address] [facility] 1.2.840.114 350.1.13.10 4.2.7.2.686 [id number] [facility] 2021-11-17 13:17:06 2021-11-17 23:59:[address] [facility] 1.2.840.114 350.1.13.10 4.2.7.2.686 [id number] [facility] 2021-11-17 13:17:06 2021-11-17 23:59:00 Outpatient R RADIOLOGY [facility] RAD [id number] [facility] 2021-11-11 00:00:00 2021-11-11 00:00:00 (TEL) STLMLC STLMLC [id number] [facility] 2021-11-08 00:00:00 2021-11-08 00:00:00 OFFICE VISIT EST PT LEVEL 3 STLMLC STLMLC [id number] [facility] 2021-11-03 14:15:00 2021-11-03 14:30:00 Principal Administrative Clerk Visit Pob, Adc Lab Mirian Joaquin [facility] 1.2.840.114 350.1.13.10 4.2.7.2.686 [id number] [facility] 2021-11-03 14:15:00 2021-11-03 14:15:00 Outpatient R MIRIAN SEO [facility] [id number] [facility] 2021-11-03 00:00:00 2021-11-03 00:00:00 Orders Only Doctor Unassigned, [place] [facility] 1..840.114 350.1.13.10 4.2.7.2.686 [id number] [facility] 2021-10-24 00:00:00 2021-10-24 00:00:00 (TEL) STLMLC STLMLC [id number] [facility] 2021-10-10 00:00:00 2021-10-10 00:00:00 (TEL) STLMLC STLMLC [id number] [facility] 2021-10-07 00:00:00 2021-10-07 00:00:00 SUB ANNUAL MCR WELLNESS VISIT STLMLC STLMLC [id number] [facility] 2021-10-07 00:00:00 2021-10-07 00:00:00 OFFICE VISIT EST PT LEVEL 3 STLMLC STLMLC [id number] [facility] 2021-07-25 00:00:00 2021-07-25 00:00:00 (TEL) STLMLC STLMLC [id number] [facility] 2021-07-14 00:00:00 2021-07-14 00:00:00 OFFICE VISIT ESTAB PT LEVEL 4 STLMLC STLMLC [id number] [facility] 2021-06-20 00:00:00 2021-06-20 00:00:00 (TEL) STLMLC STLMLC [id number] [facility] 2021-06-10 00:00:00 2021-06-10 00:00:00 (TEL) STLMLC STLMLC [id number] [facility] 2021-06-06 00:00:00 2021-06-06 00:00:00 (TEL) STLMLC STLMLC [id number] [facility] 2021-06-06 00:00:00 2021-06-06 00:00:00 OFFICE VISIT EST PT LEVEL 3 STLMLC STLMLC [id number] [facility] 2021-06-02 00:00:00 2021-06-02 00:00:00 OFFICE VISIT EST PT LEVEL 3 STLMLC STLMLC [id number] [facility] 2021-04-13 00:00:00 2021-04-13 00:00:00 OFFICE VISIT ESTAB PT LEVEL 4 STLMLC STLMLC [id number] [facility] 2021-04-05 00:00:00 2021-04-05 00:00:00 Outpatient STLMLC STLMLC [id number] [facility] 2021-03-01 00:00:00 2021-03-01 00:00:00 Outpatient STLMLC STLMLC [id number] [facility] 2020-12-13 00:00:00 2020-12-13 00:00:00 Outpatient STLMLC STLMLC [id number] [facility] 2020-11-21 00:00:00 2020-11-21 00:00:00 Outpatient STLMLC STLMLC [id number] [facility] 2020-11-08 00:00:00 2020-11-08 00:00:00 Outpatient STLMLC STLMLC [id number] [facility] 2020-10-14 00:00:00 2020-10-14 00:00:00 Outpatient STLMLC STLMLC [id number] [facility] 2020-07-21 00:00:00 2020-07-21 00:00:00 Outpatient STLMLC STLMLC [id number] [facility] 2020-06-29 00:00:00 2020-06-29 00:00:00 Outpatient STLMLC STLMLC [id number] [facility] 2020-06-22 00:00:00 2020-06-22 00:00:00 Outpatient STLMLC STLMLC [id number] [facility] 2020-04-27 15:47:00 2020-04-27 15:47:00 Outpatient [facility] [id number] [facility] 2020-04-12 11:12:00 2020-04-12 11:12:00 Outpatient [facility] [id number] [facility] 2020-04-06 08:16:00 2020-04-06 08:16:00 Outpatient [facility] [id number] [facility] 2020-03-11 09:40:00 2020-03-11 09:40:00 Outpatient [facility] [id number] [facility] 2020-01-16 15:20:00 2020-01-16 15:20:[address] [facility] [id number] [facility] 2019-11-27 10:51:00 2019-11-27 10:51:00 [address] [facility] [address] [facility] [id number] [facility] 2019-11-20 08:43:00 2019-11-20 08:43:00 [address] [facility] [address] [facility] [id number] [facility] 2019-11-18 14:00:00 2019-11-18 14:00:[address] [facility] [address] [facility] [id number] [facility] 2019-11-18 10:06:00 2019-11-18 10:06:00 [address] [facility] [address] [facility] [id number] [facility] 2019-10-28 16:14:00 2019-10-28 16:14:00 [address] [facility] [address] [facility] [id number] [facility] 2019-10-26 23:58:00 2019-10-26 23:58:00 [address] [facility] [address] [facility] [id number] [facility] 2019-10-23 08:30:00 2019-10-23 08:30:00 [address] [facility] [address] [facility] [id number] [facility] 2019-09-07 02:09:00 2019-09-07 02:09:00 [facility] [address] [facility] [id number] [facility] 2019-09-04 08:39:00 2019-09-04 08:39:00 [address] [facility] [address] [facility] [id number] [facility] 2019-09-03 15:00:00 2019-09-03 15:00:00 [facility] [address] [facility] [id number] [facility] 2019-08-05 08:20:00 2019-08-05 08:20:00 [facility] Medicine [id number] [facility] 2019-07-23 11:48:00 2019-07-23 11:48:00 [facility] [id number] [facility] 2019-07-04 11:00:00 2019-07-04 11:00:00 [facility] Medicine [id number] [facility] 2019-06-16 14:52:00 2019-06-16 14:52:00 Outpatient Porfirio Schochler DO zRandall Morelos DO [id number] [facility] 2019-06-05 12:07:00 2019-06-05 12:07:00 [facility] [id number] [facility] 2019-04-23 09:47:00 2019-04-23 09:47:00 [facility] [place] [facility] [id number] [facility] 2019-04-15 13:00:00 2019-04-15 13:00:00 [facility] [place] [facility] [id number] [facility] Results Test Description Test Time Test Comments Results Result Co mments Source [facility] GLUCOSE (AUTOMATED)2024-10-01 18:44:21* Test Item Value Reference Range Interpretation Comme nts POCT GLU (test code = 7576016661) 114 mg/dL 70-110 H Lab Interpretation (test cod e = 75982-6) Abnormal [facility] GLUCOSE (AUTOMATED)2024-10-01 15:18:51* Test Item Value Reference Range Interpretation Comme nts POCT GLU (test code = 8581186018) 162 mg/dL 70-110 H Lab Interpretation (test cod e = 39137-9) [facility] 15:18:51* Test Item Value Reference Range Interpretation Comme nts POCT GLU (test code = 0962570563) 162 mg/dL 70-110 H Lab Interpretation (test cod e = 09995-9) [facility]normal [facility] Zfdopjfxfkxbsdu5280-82-72 14:23:10Coronary Angiography Annie Claros Date of Service: 10/01/2024 ?8:17 AM Attending Physician: Jeremiah Molina: Dr. Dupont and Dr. Burgos Physician: Davin [...] the patient was thereafter transferred to the cardiac cath lab manager table. ?The access site was prepped and [...] the patient Jeremiah Molina MD [facility] 11:10:28 * Test Item Value Reference Range Interpretation Comme nts MAGNESIUM (test code = 3451769146) 2.0 mg/dL 1.7-2.4 Lab Interpretation (test cod e = 21636-5) Normal [facility]2025-02-19 11:10:28* Test Item Value Reference Range Interpretation Comme nts MAGNESIUM (test code = 9689179638) 2.0 mg/dL 1.7-2.4 Lab Interpretation (test cod e = 20562-4) [facility] (NA, K, CL, CO2, GLUCOSE, BUN, CREATININE, CA)2024-10-01 11:10:27* Test Item Value Reference Range Interpretation Comme nts NA (test code = 2284863567) 135 mmol/L 135-145 K (test code = 6439152962) 5.0 mmol/L 3.5-5.0 CL (test code = 4502360057) 108 mmol/L 98-108 CO2 TOTAL (test code = 2010631028) 22 mmol/L 23-31 L AGAP (test code = 3088759796) 5 2-16 BUN (test code = 1127845148) 18 mg/dL 7-23 GLUCOSE (test code = 6790193604) 104 mg/dL 70-110 CREATININE (test code = 2160-0) 1.40 mg/dL 0.50-1.04 H CALCIUM (test code = 4545418482) 9.7 mg/dL 8.6-10.6 eGFR (test code = 25616-5) 40.1 mL/min/1.73m2 CKD-EPI eGFR (2020). Assuming creatinine has been stable day-to-day for at least three months, the eGFR indicates Category G3b (30 - 44 mL/min/1.73 m2) Lab Interpretation (test code = 18589-2) Abnormal [facility] Metabolic Panel (NA, K, CL, CO2, GLUCOSE, BUN, CREATININE, CA)2024-10-01 11:10:27* Test Item Value Reference Range Interpretation Comme [facility] NA (test code = 8722741981) 135 mmol/L 135-145 K (test code = 7549932065) 5.0 mmol/L 3.5-5.0 CL (test code = 5048198431) 108 mmol/L 98-108 CO2 TOTAL (test code = 1879147840) 22 mmol/L 23-31 L AGAP (test code = 6365134988) 5 2-16 BUN (test code = 4105008861) 18 mg/dL 7-23 GLUCOSE (test code = 8246937137) 104 mg/dL 70-110 CREATININE (test code = 2160-0) 1.40 mg/dL 0.50-1.04 H CALCIUM (test code = 6911002391) 9.7 mg/dL 8.6-10.6 eGFR (test code = 95681-7) 40.1 mL/min/1.73m2 CKD-EPI eGFR (2020). Assuming creatinine has been stable day-to-day for at least three months, the eGFR indicates Category G3b (30 - 44 mL/min/1.73 m2) Lab Interpretation (test code = 12699-3) [facility] with [facility] Infusion)2024-10-01 08:18:08* Test Item Value Reference Range Interpretation Comme [facility] APTT Patient (test code = 3173-2) 72 26-36 H Lab Interpretation (test cod e = 16856-1) [facility]normal [facility]2024-10-01 08:18:08* Test Item Value Reference Range Interpretation Comme nts APTT Patient (test code = 3173-2) 72 26-36 H Lab Interpretation (test cod e = 87963-2) Abnormal [facility] with Fxvp9043-68-49 08:12:26* Test Item Value Reference Range Interpretation [...] 34.7 g/dL 31.6-35.1 RDW-SD (test code = 48966-4) 47.2 fL 39.0-49.9 RDW-CV (test code = 788-0) 13.2 % 12.0-15.5 PLT (test code = 777-3) 208 166-358 MPV (test code = 09727-2) 12.1 fL 9.5-12.9 NRBC/100 WBC (test code = 1389301808) 0.0 0.0-10.0 NRBC x10^3 (test code = 2348978332) See_Comment [Automated messa ge] The system which generated this result transmitted reference range: 10*3/?L. The reference range was not used to interpret this result as normal/abnormal. GRAN MAT (NEUT) % (test code = 770-8) 67.0 % IMM GRAN % (test code = 0339311459) 0.40 % LYMPH % (test code = 736-9) 22.4 % MONO % (test code = 5905-5) 6.9 % EOS % (test code = 713-8) 2.6 % BASO % (test code = 706-2) 0.7 % GRAN MAT x10^3(ANC) (test code = 8362270964) 5.52 10*3/uL 1.88-7.09 IMM GRAN x10^3 (test code = 5966720284) 0.03 10*3/uL 0.00-0.06 LYMPH x10^3 (test code = 731-0) 1.84 10*3/uL 1.32-3.29 MONO x10^3 (test code = 742-7) 0.57 10*3/uL 0.33-0.92 EOS x10^3 (test code = 711-2) 0.21 10*3/uL 0.03-0.39 BASO x10^3 (test code = 704-7) 0.06 10*3/uL 0.01-0.07 Lab Interpretation (test code = 86330-7) Abnormal [facility] with [id number] 08:12:26* Test Item Value Reference Range Interpretation [...] 34.7 g/dL 31.6-35.1 RDW-SD (test code = 12286-0) 47.2 fL 39.0-49.9 RDW-CV (test code = 788-0) 13.2 % 12.0-15.5 PLT (test code = 777-3) 208 166-358 MPV (test code = 79811-9) 12.1 fL 9.5-12.9 NRBC/100 WBC (test code = 7553384769) 0.0 0.0-10.0 NRBC x10^3 (test code = 1908307757) See_Comment [Automated messa ge] The system which generated this result transmitted reference range: 10*3/?L. The reference range was not used to interpret this result as normal/abnormal. GRAN MAT (NEUT) % (test code = 770-8) 67.0 % IMM GRAN % (test code = 0413623504) 0.40 % LYMPH % (test code = 736-9) 22.4 % MONO % (test code = 5905-5) 6.9 % EOS % (test code = 713-8) 2.6 % BASO % (test code = 706-2) 0.7 % GRAN MAT x10^3(ANC) (test code = 7550453008) 5.52 10*3/uL 1.88-7.09 IMM GRAN x10^3 (test code = 9978281297) 0.03 10*3/uL 0.00-0.06 LYMPH x10^3 (test code = 731-0) 1.84 10*3/uL 1.32-3.29 MONO x10^3 (test code = 742-7) 0.57 10*3/uL 0.33-0.92 EOS x10^3 (test code = 711-2) 0.21 10*3/uL 0.03-0.39 BASO x10^3 (test code = 704-7) 0.06 10*3/uL 0.01-0.07 Lab Interpretation (test code = 95215-8) Abnormal [facility] GLUCOSE (AUTOMATED)2024-10-01 02:20:50* Test Item Value Reference Range Interpretation Comme nts POCT GLU (test code = 8098194889) 139 mg/dL 70-110 H Lab Interpretation (test cod e = 48804-5) Abnormal [facility] GLUCOSE (AUTOMATED)2024-10-01 02:20:50* Test Item Value Reference Range Interpretation Comme nts POCT GLU (test code = 5349948702) 139 mg/dL 70-110 H Lab Interpretation (test cod e = 12896-8) Abnormal [facility] GLUCOSE (AUTOMATED)2024-09-30 23:18:22* Test Item Value Reference Range Interpretation Comme nts POCT GLU (test code = 2890272390) 143 mg/dL 70-110 H Lab Interpretation (test cod e = 89988-5) Abnormal [facility] GLUCOSE (AUTOMATED)2024-09-30 23:18:22* Test Item Value Reference Range Interpretation Comme nts POCT GLU (test code = 0464498502) 143 mg/dL 70-110 H Lab Interpretation (test cod e = 74555-5) Abnormal [facility] GLUCOSE (AUTOMATED)2024-09-30 19:22:49* Test Item Value Reference Range Interpretation Comme nts POCT GLU (test code = 0691667199) 118 mg/dL 70-110 H Lab Interpretation (test cod e = 32269-5) Abnormal [facility] GLUCOSE (AUTOMATED)2024-09-30 19:22:49* Test Item Value Reference Range Interpretation Comme nts POCT GLU (test code = 9697741799) 118 mg/dL 70-110 H Lab Interpretation (test cod e = 98197-3) Abnormal [facility] GLUCOSE (AUTOMATED)2024-09-30 14:11:48* Test Item Value Reference Range Interpretation Comme nts POCT GLU (test code = 2603942323) 115 mg/dL 70-110 H Lab Interpretation (test cod e = 75888-2) Abnormal [facility] GLUCOSE (AUTOMATED)2024-09-30 14:11:48* Test Item Value Reference Range Interpretation Comme nts POCT GLU (test code = 9121872022) 115 mg/dL 70-110 H Lab Interpretation (test cod e = 08733-7) Abnormal [facility] with Dptf6080-05-93 12:06:52* Test Item Value Reference Range Interpretation [...] 34.8 g/dL 31.6-35.1 RDW-SD (test code = 90327-3) 48.1 fL 39.0-49.9 RDW-CV (test code = 788-0) 13.2 % 12.0-15.5 PLT (test code = 777-3) 182 166-358 MPV (test code = 71554-6) 11.9 fL 9.5-12.9 NRBC/100 WBC (test code = 5550813449) 0.0 0.0-10.0 NRBC x10^3 (test code = 9528482462) See_Comment [Automated messa ge] The system which generated this result transmitted reference range: 10*3/?L. The reference range was not used to interpret this result as normal/abnormal. GRAN MAT (NEUT) % (test code = 770-8) 63.9 % IMM GRAN % (test code = 1136423596) 0.60 % LYMPH % (test code = 736-9) 23.5 % MONO % (test code = 5905-5) 8.2 % EOS % (test code = 713-8) 2.8 % BASO % (test code = 706-2) 1.0 % GRAN MAT x10^3(ANC) (test code = 0844163953) 5.33 10*3/uL 1.88-7.09 IMM GRAN x10^3 (test code = 9938492216) 0.05 10*3/uL 0.00-0.06 LYMPH x10^3 (test code = 731-0) 1.96 10*3/uL 1.32-3.29 MONO x10^3 (test code = 742-7) 0.68 10*3/uL 0.33-0.92 EOS x10^3 (test code = 711-2) 0.23 10*3/uL 0.03-0.39 BASO x10^3 (test code = 704-7) 0.08 10*3/uL 0.01-0.07 H Lab Interpretation (test code = 73721-9) Abnormal [facility] with Krei8994-51-79 12:06:52* Test Item Value Reference Range Interpretation [...] 34.8 g/dL 31.6-35.1 RDW-SD (test code = 20513-0) 48.1 fL 39.0-49.9 RDW-CV (test code = 788-0) 13.2 % 12.0-15.5 PLT (test code = 777-3) 182 166-358 MPV (test code = 81731-2) 11.9 fL 9.5-12.9 NRBC/100 WBC (test code = 7384244321) 0.0 0.0-10.0 NRBC x10^3 (test code = 3986341919) See_Comment [Automated messa ge] The system which generated this result transmitted reference range: 10*3/?L. The reference range was not used to interpret this result as normal/abnormal. GRAN MAT (NEUT) % (test code = 770-8) 63.9 % IMM GRAN % (test code = 4526976507) 0.60 % LYMPH % (test code = 736-9) 23.5 % MONO % (test code = 5905-5) 8.2 % EOS % (test code = 713-8) 2.8 % BASO % (test code = 706-2) 1.0 % GRAN MAT x10^3(ANC) (test code = 0707895217) 5.33 10*3/uL 1.88-7.09 IMM GRAN x10^3 (test code = 2861123893) 0.05 10*3/uL 0.00-0.06 LYMPH x10^3 (test code = 731-0) 1.96 10*3/uL 1.32-3.29 MONO x10^3 (test code = 742-7) 0.68 10*3/uL 0.33-0.92 EOS x10^3 (test code = 711-2) 0.23 10*3/uL 0.03-0.39 BASO x10^3 (test code = 704-7) 0.08 10*3/uL 0.01-0.07 H Lab Interpretation (test code = 65871-2) Abnormal [facility] Metabolic Panel (NA, K, CL, CO2, GLUCOSE, BUN, CREATININE, CA)2024-09-30 12:01:14* Test Item Value Reference Range Interpretation Comme nts NA (test code = 6401973009) 133 mmol/L 135-145 L K (test code = 1907798016) 4.8 mmol/L 3.5-5.0 CL (test code = 8920484825) 108 mmol/L 98-108 CO2 TOTAL (test code = 9435388469) 18 mmol/L 23-31 L AGAP (test code = 6714885726) 7 2-16 BUN (test code = 2939103447) 18 mg/dL 7-23 GLUCOSE (test code = 8954268533) 104 mg/dL 70-110 CREATININE (test code = 2160-0) 1.32 mg/dL 0.50-1.04 H CALCIUM (test code = 6326124228) 9.6 mg/dL 8.6-10.6 eGFR (test code = 75573-5) 43.0 mL/min/1.73m2 CKD-EPI eGFR (2020). Assuming creatinine has been stable day-to-day for at least three months, the eGFR indicates Category G3b (30 - 44 mL/min/1.73 m2) Lab Interpretation (test code = 78955-1) [facility]:01:14* Test Item Value Reference Range Interpretation Comme nts MAGNESIUM (test code = 8996394519) 1.9 mg/dL 1.7-2.4 Lab Interpretation (test cod e = 40823-4) Normal [facility] Metabolic Panel (NA, K, CL, CO2, GLUCOSE, BUN, CREATININE, CA)2024-09-30 12:01:14* Test Item Value Reference Range Interpretation Comme nts NA (test code = 8053090933) 133 mmol/L 135-145 L K (test code = 3558344145) 4.8 mmol/L 3.5-5.0 CL (test code = 3915765208) 108 mmol/L 98-108 CO2 TOTAL (test code = 0345182699) 18 mmol/L 23-31 L AGAP (test code = 8211901996) 7 2-16 BUN (test code = 1007288361) 18 mg/dL 7-23 GLUCOSE (test code = 4840555170) 104 mg/dL 70-110 CREATININE (test code = 2160-0) 1.32 mg/dL 0.50-1.04 H CALCIUM (test code = 4075981922) 9.6 mg/dL 8.6-10.6 eGFR (test code = 50448-2) 43.0 mL/min/1.73m2 CKD-EPI eGFR (2020). Assuming creatinine has been stable day-to-day for at least three months, the eGFR indicates Category G3b (30 - 44 mL/min/1.73 m2) Lab Interpretation (test code = 36006-1) [facility]:01:14* Test Item Value Reference Range Interpretation Comme nts MAGNESIUM (test code = 2049214701) 1.9 mg/dL 1.7-2.4 Lab Interpretation (test cod e = 82492-1) Normal [facility] GLUCOSE (AUTOMATED)2024-09-30 02:18:51* Test Item Value Reference Range Interpretation Comme nts POCT GLU (test code = 9244565397) 142 mg/dL 70-110 H Lab Interpretation (test cod e = 81923-4) Abnormal [facility] GLUCOSE (AUTOMATED)2024-09-30 02:18:51* Test Item Value Reference Range Interpretation Comme nts POCT GLU (test code = 7509233255) 142 mg/dL 70-110 H Lab Interpretation (test cod e = 40214-9) Abnormal [facility] GLUCOSE (AUTOMATED)2024-09-29 22:46:49* Test Item Value Reference Range Interpretation Comme nts POCT GLU (test code = 4487198475) 156 mg/dL 70-110 H Lab Interpretation (test cod e = 34681-1) Abnormal [facility] GLUCOSE (AUTOMATED)2024-09-29 22:46:49* Test Item Value Reference Range Interpretation Comme nts POCT GLU (test code = 2581317496) 156 mg/dL 70-110 H Lab Interpretation (test cod e = 45034-5) Abnormal [facility] Heart w contrast structures and cardiac function (non coronary)2024-09-29 22:01:25CLINICAL HISTORY: 74year old female, concern for left ventricular thrombusTECHNIQUE: Using a GE [place] scanner, following administration of intravenouscontrast, ECG gated images were obtained through the heart and a 60seconddelayed phase imaging was obtained. Image post- processing with 3Dreconstructions was performed using [employer] ([email or web address] Intuition Viewer)CT post-processing software.Acquisition: Prospective ECG triggering was used. TE[facility]NICAL [facility] and [facility] function (non coronary)2024-09-29 22:01:25CLINICAL HISTORY: 74year old female, concern for left ventricular thrombusTECHNIQUE: Using a GE [place] scanner, following administration of intravenouscontrast, ECG gated images were obtained through the heart and a 60seconddelayed phase imaging was obtained. Image post-processing with 3Dreconstructions was performed using [employer] ([employer] [email or web address] Intuition Viewer)CT post-processing software.Acquisition: Prospective ECG triggering was used. [facility]2024-09-29 19:39:50* Test Item Value Reference Range Interpretation Comme nts POCT GLU (test code = 5356192537) 141 mg/dL 70-110 H Lab Interpretation (test cod e = 98470-6) Abnormal [facility] GLUCOSE (AUTOMATED)2024-09-29 19:39:50* Test Item Value Reference Range Interpretation Comme nts POCT GLU (test code = 4180014647) 141 mg/dL 70-110 H Lab Interpretation (test cod e = 46824-5) [facility]normal [facility] with [facility] Infusion)2024-09-29 19:38:14* Test Item Value Reference Range Interpretation Comme nts APTT Patient (test code = 3173-2) 28 26-36 Lab Interpretation (test cod e = 29138-1) Normal [facility] with [facility] Infusion)2024-09-29 19:38:14* Test Item Value Reference Range Interpretation Comme nts APTT Patient (test code = 3173-2) 28 -36 Lab Interpretation (test cod e = 15373-9) [facility] fsefbwct5628-52-68 18:09:01MR BRAIN WO CONTRAST COMPARISON: CT head [...] in the mastoid air cells or paranasal airsinuses.[facility] Brain wo wdpirlsa3539-02-51 18:09:01MR BRAIN WO CONTRAST COMPARISON: CT head [...] the mastoid air cells or paranasal airsinuses. [facility] GLUCOSE (AUTOMATED)2024-09-29 15:44:48* Test Item Value Reference Range Interpretation Comme nts POCT GLU (test code = 0965171114) 124 mg/dL 70-110 H Lab Interpretation (test cod e = 69523-5) Abnormal [facility] GLUCOSE (AUTOMATED)2024-09-29 15:44:48* Test Item Value Reference Range Interpretation Comme nts POCT GLU (test code = 0069666218) 124 mg/dL 70-110 H Lab Interpretation (test cod e = 31125-0) Abnormal [facility] GLUCOSE (AUTOMATED)2024-09-29 02:49:15* Test Item Value Reference Range Interpretation Comme nts POCT GLU (test code = 5982332925) 118 mg/dL 70-110 H Lab Interpretation (test cod e = 00393-6) Abnormal [facility] GLUCOSE (AUTOMATED)2024-09-29 02:49:15* Test Item Value Reference Range Interpretation Comme nts POCT GLU (test code = 8656337023) 118 mg/dL 70-110 H Lab Interpretation (test cod e = 03310-4) [facility]normal [facility]E) Mcxvuhf6349-60-85 23:52:27* Test Item Value Reference Range Interpretation Comme nts Height (test code = 1367057649) 62 in Weight (test code = 4958110653) 164 lbs Systolic BP (test code = 6864227462) 105 mmHg Diastolic BP (test code = 5633047826) 72 mmHg Heart Rate (test code = 2328358045) 88 bpm BSA (test code = 4752731301) 1.76 m2 Radiology Study observation (narrative) (test code = 41718-2) MAGDA (test code = MAGDA) ?Left?Ventricle: Left [...] and mid inferior.All other segments are normal. [facility] (TTE) Trnkaai2607-50-99 23:52:27* Test Item Value Reference Range Interpretation Comme nts Height (test code = 8123368551) 62 in Weight (test code = 8835506575) 164 lbs Systolic BP (test code = 3073168029) 105 mmHg Diastolic BP (test code = 5681243373) 72 mmHg Heart Rate (test code = 9640485472) 88 bpm BSA (test code = 2979071559) 1.76 m2 Radiology Study observation (narrative) (test code = 25014-4) MAGDA (test code = MAGDA) ?Left?Ventricle: Left [...] and mid inferior.All other segments are normal. [facility] GLUCOSE (AUTOMATED)2024-09-28 23:37:17* Test Item Value Reference Range Interpretation Comme [facility] POCT GLU (test code = 8120491377) 143 mg/dL 70-110 H Lab Interpretation (test cod e = 42657-8) Abnormal [facility] GLUCOSE (AUTOMATED)2024-09-28 23:37:17* Test Item Value Reference Range Interpretation Comme [facility] POCT GLU (test code = 5515943203) 143 mg/dL 70-110 H Lab Interpretation (test cod e = 96511-6) Abnormal [facility] GLUCOSE (AUTOMATED)2024-09-28 21:44:17* Test Item Value Reference Range Interpretation Comme nts POCT GLU (test code = 6752585565) 109 mg/dL 70-110 Lab Interpretation (test cod e = 98229-2) Normal [facility] GLUCOSE (AUTOMATED)2024-09-28 21:44:17* Test Item Value Reference Range Interpretation Comme nts POCT GLU (test code = 7255802257) 109 mg/dL 70-110 Lab Interpretation (test cod e = 37741-9) Normal [facility] ACUTE STROKE ANGIOGRAM [id number] 17:45:42FULL RESULT: Examination: CT STROKE ANGIOGRAM NECK, CT STROKE ANGIOGRAM HEAD 09/28/2024 9:08 AM Clinical Indication: Left visual field defect, suspected right [employer] infarct Comparison: Concurrent CT Technique: Arterial phase postcontrast imaging was obtained through theintracranial and cervical vascu lature. Findings: Intracranially there was no high-grade stenosis or occlusion.Specifically the right [employer] INSURANCE COLLECTOR appears unremarkable. With respect to the cervical vasculature, there was no occlusion orhigh-grade stenosis.[facility] ACUTE STROKE ANGIOGRAM [id number] 17:45:42FULL RESULT: Examination: CT STROKE ANGIOGRAM NECK, CT STROKE ANGIOGRAM HEAD 09/28/2024 9:08 AM Clinical Indication: Left visual field defect, suspected right [employer] INS[employer]ANCE [employer]OR infarct Comparison: Concurrent CT Technique: Arterial phase postcontrast imaging was obtained through theintracranial and cervical vascu lature. Findings: Intracranially there was no high-grade stenosis or occlusion.Specifically the right MEDICAL INSURANCE COLLECTOR appears unremarkable. With respect to the cervical vasculature, there was no occlusion orhigh-grade stenosis.[facility] ACUTE STROKE ANGIOGRAM [id number] 17:45:42FULL RESULT: Examination: CT STROKE ANGIOGRAM NECK, CT STROKE ANGIOGRAM HEAD 09/28/2024 9:08 AM Clinical Indication: Left visual field defect, suspected right [employer]ICAL INSURANCE COL[employer]OR infarct Comparison: Concurrent CT Technique: Arterial phase postcontrast imaging was obtained through theintracranial and cervical vascu lature. Findings: Intracranially there was no high-grade stenosis or occlusion.Specifically the right MEDICAL INSURANCE COLLECTOR appears unremarkable. With respect to the cervical vasculature, there was no occlusion orhigh-grade stenosis.[facility] ACUTE STROKE ANGIOGRAM [id number] 17:45:42FULL RESULT: Examination: CT STROKE ANGIOGRAM NECK, CT STROKE ANGIOGRAM HEAD on09/28/2024 9:08 AM Clinical Indication: Left visual field defect, suspected right [employer]ICAL INSURANCE COLLECTOR infarct Comparison: Concurrent CT Technique: Arterial phase postcontrast imaging was obtained through theintracranial and cervical vascu lature. Findings: Intracranially there was no high-grade stenosis or occlusion.Specifically the right MEDICAL INSURANCE COLLECTOR appears unremarkable. With respect to the cervical vasculature, there was no occlusion orhigh-grade stenosis.[facility] ACUTE STROKE HEAD WO [id number] 16:37:57FULL RESULT: Examination: CT STROKE HEAD WO [...] PCAdistribution. There is no evidence of hemorrhage [facility] ACUTE STROKE HEAD WO [id number] 16:37:57FULL RESULT: Examination: CT STROKE HEAD WO [...] left PCAdistribution. There is no [facility]2024-09-28 14:52:46* Test Item Value Reference Range Interpretation Comme nts POCT GLU (test code = 3271108291) 184 mg/dL 70-110 H Lab Interpretation (test cod e = 92172-3) Abnormal [facility] GLUCOSE (AUTOMATED)2024-09-28 14:52:46* Test Item Value Reference Range Interpretation Comme nts POCT GLU (test code = 0790147901) 184 mg/dL 70-110 H Lab Interpretation (test cod e = 77789-5) [facility]normal [facility] 1 [id number] 14:37:17XR CHEST 1 VW HISTORY: ?NSTEMI COMPARISON: None FINDINGS: Loop recorder overlies the heart. ?There is no infiltrate orpleural effusion. ?The cardiomediastinal silhouette is within normallimits. ?There is no pneumothorax.[facility] 1 [id number] 14:37:17XR CHEST 1 VW HISTORY: ?NSTEMI COMPARISON: None FINDINGS: Loop recorder overlies the heart. ?There is no infiltrate orpleural effusion. ?The cardiomediastinal silhouette is within normallimits. ?There is no pneumothorax.[facility] HospitalLaaric Acid Whole Ljobb1616-29-84 06:29:51* Test Item Value Reference Range Interpretation Comme [facility] LACTIC ACID (test code = 4362422896) 1.40 mmol/L 0.50-2.20 QUES Lab Interpretation (test cod e = 11044-2) Normal [facility] Hospital[facility] Whole Pedjh3571-90-64 06:29:51* Test Item Value Reference Range Interpretation Comme nts LACTIC ACID (test code = 8476335703) 1.40 mmol/L 0.50-2.20 QUES Lab Interpretation (test cod e = 03192-2) Normal [facility] Hospital[facility]PREHENSIVE METABOLIC [id number] 15:58:00* Test Item Value Reference Range Interpretation [...] = ALKP) 109 Unit/L 45-117 N PROTHROMBIN [id number] 15:52:00* Test Item Value Reference Range Interpretation [...] Infarction (to prevent recurrent infarct). THROMBOPLASTIN TIME [id number] 15:52:00* Test Item Value Reference Range Interpretation Comme nts THROMBOPLASTIN TIME PARTIAL (test code = PTT) 36.9 SECONDS 26-35 H CBC W/AUTO [id number] 15:47:00* Test Item Value Reference Range Interpretation [...] = MDIFF) NO DIFF/SCN CRITERIA COAGULATION TIME [id number] 17:42:00* Test Item Value Reference Range Interpretation Comme nts COAGULATION TIME ACTIVATED ( test code = ACT) 292 SECistat 74-125 H BASIC METABOLIC WMPPO1996-27-18 09:30:00* Test Item Value Reference Range Interpretation [...] CA) 8.9 MG/DL 8.5-10.1 N GLUCOSE BEDSIDE [id number] 08:19:00* Test Item Value Reference Range Interpretation Comme nts GLUCOSE BEDSIDE TESTING (latrice t code = GLUBED) 159 mg/dL 70-110 H GLUCOSE BEDSIDE [id number] 17:09:00* Test Item Value Reference Range Interpretation Comme nts GLUCOSE BEDSIDE TESTING (latrice t code = GLUBED) 166 mg/dL 70-110 H COAGULATION TIME [id number] 10:57:00* Test Item Value Reference Range Interpretation Comme nts COAGULATION TIME ACTIVATED ( test code = ACT) 305 SECistat 74-125 H - XR CHEST 1 [id number] 07:51:00 [facility] : 1950 Sex: F Name: ANNIE CLAROS [facility] : 1950 Age/S: 72 / F [address] Unit #: [id number] Loc: [place] [address] Phys: Caitlin Wood MD Acct: [id number] Dis Date: Status: [facility] PHONE #: [phone] Exam Date: 07/12/2022 0740 FAX #: Reason: PRE OP EXAMS: CPT: [id number] XR CHEST 1 V 62437 Fluoro Time: DAP (Gy m2): Air Kerma [...] CLAROS : 1950 Age/S: 72 / F [address] Unit #: [id number] Loc: [place] [address] Phys: Caitlin Leblanc MD Acct: [id number] Dis Date: Status: REG SDC PHONE #: [phone] Exam Date: 07/12/2022 0743 FAX #: Reason: PRE OP EXAMS: CPT: [id number] XR CHEST 1 V 00454 Fluoro Time: DAP (Gy m2): Air Kerma (mGy): (Continued) Technologist: Tata Serna, RT,(R),(CT) Trnscb Date/Time: 07/12/2022 (075) [id number] Orig Print D/T: S: 07/12/2022 (0754) PAGE 2 Signed Report PROTHROMBIN [id number] 14:37:00* Test Item Value Reference Range Interpretation [...] Infarction (to prevent recurrent infarct). THROMBOPLASTIN TIME [id number] 14:37:00* Test Item Value Reference Range Interpretation Comme nts THROMBOPLASTIN TIME PARTIAL (test code = PTT) 31.4 SECONDS 26-35 N BASIC METABOLIC [id number] 13:58:00* Test Item Value Reference Range Interpretation [...] CA) 9.7 MG/DL 8.5-10.1 N CBC W/AUTO [id number] 13:57:00* Test Item Value Reference Range Interpretation [...] = MDIFF) NO DIFF/SCN CRITERIA GLUCOSE BEDSIDE [id number] 11:36:00* Test Item Value Reference Range Interpretation Comme nts GLUCOSE BEDSIDE TESTING (latrice t code = GLUBED) 258 mg/dL 70-110 H BASIC METABOLIC [id number] 09:00:00* Test Item Value Reference Range Interpretation [...] code = CA) 9.8 MG/DL 8.5-10.1 N [id number] 09:00:00* Test Item Value Reference Range Interpretation Comme nts MAGNESIUM (test code = MAG) 1.8 MG/DL 1.8-2.4 N GLUCOSE BEDSIDE [id number] 08:04:00* Test Item Value Reference Range Interpretation Comme nts GLUCOSE BEDSIDE TESTING (latrice t code = GLUBED) 240 mg/dL 70-110 H GLUCOSE BEDSIDE [id number] 20:51:00* Test Item Value Reference Range Interpretation Comme nts GLUCOSE BEDSIDE TESTING (latrice t code = GLUBED) 232 mg/dL 70-110 H GLUCOSE BEDSIDE [id number] 08:24:00* Test Item Value Reference Range Interpretation Comme nts GLUCOSE BEDSIDE TESTING (latrice t code = GLUBED) 207 mg/dL 70-110 H GLYCOSYLATED HEMOGLOBIN [id number] 06:51:00* Test Item Value Reference Range Interpretation Comme nts GLYCOSYLATED HEMOGLOBIN (HA1 C) (test code = GLYHGB) 9.2 % A1C 0.0-5.7 H ESTIMATED AVERAGE GLUCOSE (t est code = EAG) 217 MG/DLest BASIC METABOLIC [id number] 06:42:00* Test Item Value Reference Range Interpretation [...] = LDL) 102 MG/DL 0-129 N <100 YPVNCUH85 0 - 129 NEAR OPTIMAL/ABOVE VXNPEYT914 - 159 YYACQNFSUZ025 - 189 HIGH>OR= 190 VERY HIGHNOTE THAT GUIDELINES ARE PROVIDED BY NATIONAL CHOLESTEROLEDUCATION PROGRAM ADULT TREATMENT PANEL III LDL/HDL (test code = LDL/HDL) 4.08 Ratio See_Comment H [Automated messa ge] The system which generated this result transmitted reference range: 1.48-3.22 Avg. The reference range was not used to interpret this result as normal/abnormal. [id number] 06:42:00* Test Item Value Reference Range Interpretation Comme nts MAGNESIUM (test code = MAG) 1.4 MG/DL 1.8-2.4 L NT PRO-BRAIN NATRIURETIC [id number] 06:38:00* Test Item Value Reference Range Interpretation Comme nts NT PRO-BRAIN NATRIURETIC PEP TI (test code = PROBNP) 75 PG/ML 0-100 N CBC W/AUTO [id number] 06:23:00* Test Item Value Reference Range Interpretation [...] = MDIFF) NO DIFF/SCN CRITERIA GLUCOSE BEDSIDE [id number] 20:50:00* Test Item Value Reference Range Interpretation Comme nts GLUCOSE BEDSIDE TESTING (latrice t code = GLUBED) 223 mg/dL 70-110 H GLUCOSE BEDSIDE [id number] 16:40:00* Test Item Value Reference Range Interpretation Comme nts GLUCOSE BEDSIDE TESTING (latrice t code = GLUBED) 272 mg/dL 70-110 H - MRI BRAIN W/O [id number] 11:44:00 [facility] : 1950 Sex: F FAX: Rosalinda Cr MD Camps: PM St: ADM Name: ANNIE CLAROS [facility] : 1950 Age/S: 71/F [address] Unit #: [id number] Loc: [place] [address] Phys: Rosalinda Cr MD Acct: [id number] Dis Date: Status: ADM IN PHONE #: [phone] Exam Date: 03/15/2022 1137 FAX #: Reason: acute stroke EXAMS: CPT: [id number] MRI BRAIN W/O CONTRAST 37546 EXAM: - MRI BRAIN W/O CONTRAST INDICATION: acute stroke [id number]: Multiplanar multisequence MR images of the brain [...] (1144) :Angelia.AH26 Orig Print D/T: S: 03/15/2022 (1922) PAGE 1 Signed ReportGLUCOSE BEDSIDE [id number] 10:51:00* Test Item Value Reference Range Interpretation Comme nts GLUCOSE BEDSIDE TESTING (latrice t code = GLUBED) 135 mg/dL 70-110 H UA RFLX MICR CULT IF [id number] 06:07:00* Test Item Value Reference Range Interpretation [...] OF URINE: CLEAN CATCHCOVID 19 Asymptomatic IH [id number] 23:03:00* Test Item Value Reference Range Interpretation Comme nts COVID 19 Asymptomatic IH AG (test code = COVNONPUIAG) NEGATIVE Negative Per disaster recovery analyst , negative results should be treated aspresumptive [...] consistent with COVID-19. - XR CHEST 1 [id number] 22:28:00 [facility] 1950 Sex: F Name: ANNIE CLAROS [facility] : 1950 Age/S: 71 / F [address] Unit #: [id number] Loc: [place] [address] Phys: Elina Starks Tanya DO Acct: [id number] Dis Date: Status: REG ER PHONE #: [phone] Exam Date: 03/14/20222208 FAX #: Reason: Code Stroke EXAMS: CPT: [id number] XR CHEST 1 V 41387 Fluoro Time: DAP (Gy m2): Air Kerma [...] PAGE 1 Signed Report Name: ANNIE CLAROS [facility] : 1950 Age/S: 71 / F [address]: [id number] Loc: [place] [address] Phys: Elina Starks DO Acct: [id number] Dis Date: Status: REG ER PHONE #: [phone] Exam Date: 03/14/20222208 FAX #: Reason: Code Stroke EXAMS: CPT: [id number] XR CHEST 1 V 81841 Fluoro Time: DAP (Gy m2): Air Kerma (mGy): (Continued)Technologist: Socrates Boone, RT(R) Trnscb Date/Time: 03/14/2022 (2227) tCARLINEBC0 Orig Print D/T: S: 03/14/2022 (2231) PAGE 2 Signed Report- CT ANGIO [id number] 22:23:00 [facility] : 1950 Sex: F Name: ANNIE CLAROS : 1950 Age/S: 71 / F [address] Unit #: [id number] Loc: [place] [address] Phys: Elina Starks DO Acct: [id number] Dis Date: Status: REG ER PHONE #: [phone] Exam Date: 03/14/2022 2200 FAX #: Reason: expressive aphasia EXAMS: CPT: [id number] CT ANGIO NECK 99776 EXAM: CTA head with contrast and CTA [...] 1 Signed Report (CONTINUED) Name: ANNIE CLAROS [place] : 1950 Age/S: 71 / F [address] Unit #: [id number] Loc: [place] [address] Phys: Elina Starks DO Acct: [id number] Dis Date: Status: REG ER PHONE #: [phone] Exam Date: 03/14/20222199 FAX #: Reason: expressive aphasia EXAMS: CPT: [id number] CT ANGIO NECK 77434 (Continued) Other findings: There is no cervical [...] techniques were used: Automated exposure control, adjustment ofthe mA and/or kV according to patient size, and/or utilization of iterative reconstruction technique. DLP: 3040 mGy-cm CTDI: 132 mGy at 2223 Reported and signed by: Lm Watts M.D. CC: Elina Starks DO Technologist:Socrates Boone, RT(R) CTDI: DLP: Trnscb Date/Time: 03/14/2022 (222) t.BENJAMÍNR.BC0 Orig Print D/T: S: 03/14/2022 (6) PAGE 2 Signed Report- CT ANGIO [id number] 22:23:00 [facility] : 1950 Sex: F Name: ANNIE CLAROS [facility] : 1950 Age/S: 71 / F [address] Unit #: [id number] Loc: [place] [address] Phys: Elina Starks DO Acct: [id number] Dis Date: Status: REG ER PHONE #: [phone] Exam Date: 03/14/20222199 FAX #: Reason: expressive aphasia EXAMS: CPT: [id number] CT ANGIO HEAD 43971 EXAM: CTA head with contrast and CTA [...] ANNIE CLAROS : 1950 Age/S: 71 / [id number] Unit #: [id number] Loc: [place] [address] Phys: Elina Starks DO Acct: [id number] Dis Date: Status: REG ER PHONE #: [phone] Exam Date: 03/14/20222199 FAX #: Reason: expressive aphasia EXAMS: CPT: [id number] CT ANGIO HEAD 81404 (Continued) Other findings: There is no cervical [...] 03/14/2022 (2226) PAGE 2 Signed ReportBASIC METABOLIC [id number] 22:15:00* Test Item Value Reference Range Interpretation [...] 8.5-10.1 N Completed by Nursing: NOTROP-I HIGH PYCHPWVAQWF4816-04-13 22:15:00* Test Item Value Reference Range Interpretation [...] may varyby method. Completed by Nursing: NOPROTHROMBIN [id number] 22:11:00* Test Item Value Reference Range Interpretation [...] Infarction (to prevent recurrent infarct). THROMBOPLASTIN TIME [id number] 22:11:00* Test Item Value Reference Range Interpretation Comme nts THROMBOPLASTIN TIME PARTIAL (test code = PTT) 31.1 SECONDS 26-35 N CBC W/O [id number] 22:02:00* Test Item Value Reference Range Interpretation [...] fL 7.0-10.5 H - CT HEAD/BRAIN W/O [id number] 22:00:00 [facility] 1950 Sex: F Name: ANNIE CLAROS : 1950 Age/S: 71 / F [address] Unit #: [id number] Loc: [place] [address] Phys: RaudelElina C DO Acct: [id number] Dis Date: Status: PRE ER PHONE #: [phone] Exam Date: 03/14/2022 2150 FAX #: Reason: expressive aphasia EXAMS: CPT: [id number] CT HEAD/BRAIN W/O CONT 59046 Location: CT head, 03/14/22 COMPARISON EXAMS:None of [...] the helpful for further assessment finding somewhat alex watershed distribution between the left MEDICAL INSURANCE COLLECTOR and MCA territory. No other findings of concern for avascular insult. IMPRESSION: No territorial infarction or space-occupying [...] CLAROS : 1950 Age/S: 71 / F [address] Unit #: [id number] Loc: [place] [address] Phys: Elina Starks DO Acct: [id number] Dis Date: Status: PRE ER PHONE #: [phone] Exam Date: 03/14/20222149 FAX #: Reason: expressive aphasia EXAMS: CPT: [id number] CT HEAD/BRAIN W/O CONT 80749 (Continued) FOR INTERNAL CODING PURPOSES ONLY RESULT CODE: CVRMD at 0 Reported and signed by: Adri Hicks M.D. CC: Elina Starks DO Technologist:Socrates Boone, RT(R); Kri CTDI: DLP: Trnscb Date/Time: 03/14/2022 (2199) [email or web address] Orig Print D/T: S: 03/14/2022 (2202) PAGE 2 Signed ReportPOIN GLUCOSE (AUTOMATED)2022-03-01 13:03:23* Test Item Value Reference Range Interpretation Comme nts POCT GLU (test code = 2227339321) 321 mg/dL 70-110 H Lab Interpretation (test cod e = 27090-5) Abnormal [facility] GLUCOSE (AUTOMATED)2022-03-01 13:03:23* Test Item Value Reference Range Interpretation Comme nts POCT GLU (test code = 3675773306) 321 mg/dL 70-110 H Lab Interpretation (test cod e = 19785-9) Abnormal [facility] [id number] 12:47:00* Test Item Value Reference Range Interpretation Comme nts POCT Glu (age>30days) (test code = 3342) 321 mg/dL 70-110 A Lab Interpretation (test cod e = 39185-5) Abnormal [facility] [id number] 12:47:00* Test Item Value Reference Range Interpretation Comme nts POCT Glu (age>30days) (test code = 3342) 321 mg/dL 70-110 A Lab Interpretation (test cod e = 89536-3) Abnormal [facility] GLUCOSE (AUTOMATED)2022-02-15 13:02:47* Test Item Value Reference Range Interpretation Comme nts POCT GLU (test code = 0231958992) 152 mg/dL 70-110 H Lab Interpretation (test cod e = 19742-1) Abnormal [facility] GLUCOSE (AUTOMATED)2022-02-15 13:02:47* Test Item Value Reference Range Interpretation Comme nts POCT GLU (test code = 7533071945) 152 mg/dL 70-110 H Lab Interpretation (test cod e = 78751-2) Abnormal [facility] [id number] 12:58:00* Test Item Value Reference Range Interpretation Comme nts POCT Glu (age>30days) (test code = 3342) 152 mg/dL 70-110 A Lab Interpretation (test cod e = 05885-8) Abnormal [facility] [id number] 12:58:00* Test Item Value Reference Range Interpretation Comme nts POCT Glu (age>30days) (test code = 3342) 152 mg/dL 70-110 A Lab Interpretation (test cod e = 96849-9) [facility],Sdfxacovwanoc6988-66-06 00:00:00 * Test Item Value Reference Range [...] (hyperlipidemia) 2010 HTN (hypertension) 2010 Migraines Ulcer PSH: Past Surgical History: Procedure Laterality Date BREAST BIOPSY Left 01/03/2022 HYSTERECTOMY 2006 PHACOEMULSIFICATION OF CATARACT WITH INTRAOCULAR LENS IMPLANT Left 02/15/2022 Surgeon: Nicolas Ritter MD; Location: [facility] PHACOEMULSIFICATION OF CATARACT WITH INTRAOCULAR LENS IMPLANT Right 03/01/2022 Surgeon: Nicolas Ritter MD; Location: [facility] RADICAL HYSTERECTOMY TONSILLECTOMY PRIOR LIVING SITUATION: in a single story house, with grandson, 2 TERRY DME: Single Point Cane Prior level of Mobility: community ambulation with cane, house hold ambulation Suspected ischemic or hemorraghic stroke:No Subjective: agreed for PT evaluation, Patient/Family Goals: to go home Patient/Family verbalizes understanding of condition: Yes PAIN: denies pain before and after session COMMUNICATION Primary Language: [place] Able to Verbalize needs: Yes Vision:glasses Hearing:good; [...] Minutes: 19 min Daily Salgado PT, MSPT. OOM HOST Daily Salgado PT [facility] 2024-09-30 09:34:00 Associated Order(s): CONSULT ADULT OCCUPATIONAL THERAPY OT GENERAL EVALUATION Consult received via [employer] EMR reviewed and evaluation completed 09/30/24. Patient [...] Left 02/15/2022 Surgeon: Nicolas Ritter MD; Location: [facility] PHACOEMULSIFICATION OF CATARACT WITH INTRAOCULAR LENS IMPLANT Right 03/01/2022 Surgeon: Nicolas Ritter MD; Location: [facility] OR [facility] RADICAL HYSTERECTOMY TONSILLECTOMY PAIN: Denies pain before [...] to complete evaluation component. OD Lambert OT [facility] 2024-09-29 16:24:24 Associated Order(s): CONSULT SPEECH Speech-Language Pathology Clinical Swallow Evaluation 09/29/2024 Annie Claros : 1950 Age/Sex: 74 year old female Time IN/OUT: 3129-6763 Referring Physician: Viola Olsen Date of Referral: [...] NIHSS 0. CT Head showed acute/subacute R MEDICAL INSURANCE COLLECTOR and chronic L MEDICAL INSURANCE COLLECTOR infarct. CTA showed no LVO and showed mild bilateral CCA stenosis. MRI brain confirmed the subacute R MEDICAL INSURANCE COLLECTOR infarct along with small punctate R MCA [...] the heart and interpreted by a board-certified Bioinformatics Associate with specialized training in cardiac imaging. Any [...] WO CONTRAST Result Date: 09/28/2024 Subacute right MEDICAL INSURANCE COLLECTOR infarct XR Chest 1 vw Result Date: 09/28/2024 No radiologically significant acute abnormality of the chest. Loop recorder. Ordering physician: ROSALVA OH RL 9149 Previous MANAGER REAL ESTATE Services/Swallow History: None documented. Past Medical History: Diagnosis Date Arthritis CKD stage G3b/A3, GFR 30 - 44 and albumin creatinine ratio >300 mg/g Diabetes 2010 Gout, arthritis 2009 HLD (hyperlipidemia) 2009 HTN (hypertension) 2009 Migraines Ulcer Past Surgical History: Procedure Laterality Date BREAST BIOPSY Left 01/03/2022 HYSTERECTOMY 2007 PHACOEMULSIFICATION OF CATARACT WITH INTRAOCULAR LENS IMPLANT Left 02/15/2022 Surgeon: Nicolas Ritter MD; Location: [facility] OR LOCATION PHACOEMULSIFICATION OF CATARACT WITH INTRAOCULAR LENS IMPLANT Right 03/01/2022 Surgeon: Nicolas Ritter MD; Location: [facility] OR LOCATION RADICAL HYSTERECTOMY TONSILLECTOMY General Behavior: [...] verbally. Discussed findings of evaluation, recommendations and MANAGER REAL ESTATE plan of care. Educated about swallow precautions. [...] deficits reported by patient or observed by MANAGER REAL ESTATE. SLE does not appear indicated at this [...] suspected, recommend pt be made NPO pending MANAGER REAL ESTATE re-assessment. Instrumental Swallow Assessment: - Not indicated at this time. Additional Referrals: - None evident at this time. Continued MANAGER REAL ESTATE services: No further acute MANAGER REAL ESTATE services indicated at this time, so service is signing off. Please re-consult if indicated. Thank you. Discharge Recommendations: - Defer to PT/OT and/or medical team. Yajaira Day MA, [facility]-MANAGER REAL ESTATE Speech-Language Pathologist Office [phone] Pager: [phone] [facility] 2024-09-28 09:45:08 STROKE SERVICE CONSULT DATE OF [...] her daughter report she visited [facility] on Sunday09/26/2024 for the same symptoms (left hand numbness and "fuzzy vision" over whole visual field). MRI brain (per [facility]) showed no acute stroke. The patient reports [...] 909 CT-Head without contrast read by Neurology: 919 Last seen normal: Last known well - [...] Laterality Date BREAST BIOPSY Left 01/03/2022 HYSTERECTOMY 2006 PHACOEMULSIFICATION OF CATARACT WITH INTRAOCULAR LENS IMPLANT Left 02/15/2022 Surgeon: Nicolas Ritter MD; Location: [facility] PHACOEMULSIFICATION OF CATARACT WITH INTRAOCULAR LENS IMPLANT Right 03/01/2022 Surgeon: Nicolas Ritter MD; Location: [facility] RADICAL HYSTERECTOMY TONSILLECTOMY FAMILY HISTORY Family History Problem Relation Age of Onset Diabetes Sister Diabetes Sister Arthritis Maternal Uncle Coronary Heart Disease Father , 60's Coronary Heart Disease Sister , 62 Hypertension Sister Hypertension Sister Stroke Father Other - see comments Mother , 54 head injury SOCIAL HISTORY Social History Socioeconomic History Marital status: Occupational History 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 MRI brain ([facility]): MRI BRAIN WITHOUT CONTRAST CLINICAL INDICATION: TIA TECHNIQUE: Multiplanar multisequence MR images of the brain were obtained without intravenous contrast. Unless otherwise specified, incidental findings do not require dedicated imaging follow- up. COMPARISON: Recent CABIN OUTFITTER imaging FINDINGS: INTRACRANIAL: There is significant artifact [...] Consult PT/OT/ Speech pathology/Primary swallowing screen - Surface Supervisor on stroke education, smoking cessation, healthy diet, physical activity, weight loss Imaging: - TTE w/ bubble study Case seen and discussed with John Coto MD, Vascular Neurology Faculty Hang Murray MD Neurology resident OOM HOST Associated attestation - John oCto MD - 09/28/2024 12:31 PM TEAROOM HOST I personally examined the patient and agree [...] back. John Coto MD Vascular Neurology NEUROLOGY [facility] - Health History and Physical Notes Date/Time [...] signed. Sukh Dupont MD Fellow, Cardiovascular Disease [facility] OOM HOST Associated attestation - Jeremiah Molina MD - 10/01/2024 7:25 AM TEAROOM HOST Agree CARDIOVASCULAR DISEASE [facility] 2024-09-27 21:05:08 White Team Admit H&P [...] test who presented as a transfer from [facility] with CC of chest pressure. Patient initially presented to [facility] with numbness and tingling in her left upper extremity where an MRI brain and CT angiogram of her head and neck were obtained to rule out an acute CVA; however, these imaging modalities did not reveal an acute stroke. During her stay at [facility], she complained of a chest pressure that [...] states he is compliant with. Labs at [facility] were significant for creatinine 1.83 (eGFR 29), hemoglobin 11.1, platelets 180, troponin high-sensitivity 2942.6 (reference range normal <58.9). CXR was obtained and was normal. ECG showed NSR ~75bpm, nml axis, GRWP, no ST depressions/eelvations or TWI, no q-waves. She was loaded with aspirin, heparin, Plavix 300 mg, and continued on a heparin drip while transferred to [facility]. Upon arrival to [facility], she was AF, BP 132/84 mmHg, P [...] ovale. Agitated saline contrast study shows a ogokd-gg-cxkt shunt. Aortic valve: The valve is structurally [...] Left 02/15/2022 Surgeon: Nicolas Ritter MD; Location: [facility] OR LOCATION PHACOEMULSIFICATION OF CATARACT WITH INTRAOCULAR LENS IMPLANT Right 03/01/2022 Surgeon: Nicolas Rittre MD; Location: [facility] OR LOCATION RADICAL HYSTERECTOMY TONSILLECTOMY Family History: Family History Problem Relation Age of Onset Diabetes Sister Diabetes Sister Arthritis Maternal Uncle Coronary Heart Disease Father , 60's Coronary Heart Disease Sister , 62 Hypertension Sister Hypertension Sister Stroke Father Other - see comments Mother , 54 head injury Social History: Social History Socioeconomic History Marital status: Occupational History 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 Rosalva Oh MD [employer] Department of Internal Medicine Division of Cardiovascular Medicine [facility] Notes Date/Time Note Provider Source 2024-10-01 [...] within specified parameters Outcome: Adequate for discharge [facility] 2024-10-01 08:18:52 Report to 9B. OD Hough RN [facility] 2024-10-01 08:16:56 Coronary Angiography Annie Claros [...] the patient was thereafter transferred to the cardiac cath lab manager table. The access site was prepped and [...] patient Jeremiah Molina MD 10/01/2024 8:17 AM [facility]-CARDIOVASCULAR DISEASE STAFF [facility] 2024-10-01 00:03:59 Problem: Falls, Risk of [...] within specified parameters Outcome: Progressing as expected OOM HOST Kenroy Mohr RN [facility] 2024-09-30 16:58:44 Problem: Falls, Risk of [...] within specified parameters Outcome: Progressing as expected [facility] 2024-09-30 02:39:16 Problem: Falls, Risk of Goal: [...] within specified parameters Outcome: Progressing as expected [facility] Chucky Egan RN [facility] 2024-09-29 16:38:00 Problem: Falls, Risk of [...] within specified parameters Outcome: Progressing as expected [facility] 2024-09-28 23:02:12 Problem: Falls, Risk of Goal: [...] within specified parameters Outcome: Progressing as expected [facility] 2024-09-28 09:57:20 Location of Patient: Room 923 Name of Responding NCCU RN: Aundrea [...] to her room with vital signs stable. [facility] Aundrea Miller RN [facility] 2024-09-28 07:29:04 Problem: Falls, Risk of [...] within specified parameters Outcome: Progressing as expected OOM HOST Armin Turpin RN [facility] 2024-09-28 02:50:25 Problem: Falls, Risk of [...] Chucky Egan RN Outcome: Progressing as expected [facility] 2023-03-06 15:09:00 [facility] ([facility]) EMERGENCY PROVIDER REPORT REPORT#:[id number] REPORT STATUS: Signed DATE:03/06/23 TIME:150 PATIENT: ANNIE CLAROS UNIT #: [id number] ROOM/BED: : 52 AGE: 73 SEX: F [...] 1700 ATORVASTATIN (LIPITOR) 40 MG PO DAILY 0 #30 TAB Prov: 03/17/22 CARVEDILOL (COREG) 6.25 [...] (Auto) (20.5 - 51.1 %) 18.4 L [place] % (Auto) (1.7 - 9.3 %) 7.1 Eos % (Auto) (0.0 - 6.0 %) 1.2 Baso % (Auto) (0.0 - 2.0 %) 1.0 Neut # (Auto) (1.8 - 7.6 K/mm3) 5.5 Lymph # (Auto) (0.6 - 3.2 K/mm3) 1.4 [place] # (Auto) (0.3 - 1.1 K/mm3) 0.5 [...] Apixaban Oral Tablet at 1042 RPT #: [id number] END OF REPORT [facility] 2022-07-13 10:12:00 [facility] ([facility]) Hospitalist Discharge Summary REPORT#:[id number] REPORT STATUS: Signed DATE:07/13/22 TIME:1012 PATIENT: ANNIE CLAROS UNIT #: [id number] ROOM/BED: [place] [address] : [birth year] AGE: 72 SEX: F ATTEND: [...] Musculoskeletal: normal inspection, painless range of motion Neuro/CABIN OUTFITTER: alert, oriented X 3 Skin: dry, intact [...] Home/Self Care Additional Discharge Routines: PCP Follow-Up, Blemish Remover Follow-Up Diet: Cardiac Activity: As Tolerated Follow-up [...] of my knowledge. at 2058 RPT #: [id number] END OF REPORT [facility] 2022-07-13 09:24:00 [facility] ([facility] Cardiology Progress Note REPORT#:[id number] REPORT STATUS: Signed DATE:07/13/22 TIME:923 PATIENT: ANNIE CLAROS UNIT #: [id number] ROOM/BED: [place] [address] : [birth year] AGE: 72 SEX: F ATTEND: [...] Sodium Chloride (0.9% Sodium Chloride) 1,000 ML .[id number] IV Status post: pci to RCA Physical [...] LE assessment: no edema Musculoskeletal: normal inspection Neuro/CABIN OUTFITTER: alert, oriented X 3 Skin: dry, intact, [...] weeks at 1511 at 1718 RPT #: [id number] END OF REPORT [facility] 2022-07-12 12:06:00 [facility] ([facility]) Hospitalist History Physical REPORT#:[id number] REPORT STATUS: Signed DATE:07/12/22 TIME:1206 PATIENT: ANNIE CLAROS UNIT #: [id number] ROOM/BED: [place] [address] : [birth year] AGE: 72 SEX: F ATTEND: [...] Musculoskeletal: normal inspection, painless range of motion Neuro/CABIN OUTFITTER: alert, oriented X 3 Skin: dry, intact [...] -PATRICK initiated, educated on need for compliance. -Bioinformatics Associate following. -continue OMT #CKDIII- post contrast exposure [...] of my knowledge. at 1501 RPT #: [id number] END OF REPORT [facility] 2022-07-12 12:01:00 [facility] ([facility]) DT Operative Note REPORT#:[id number] REPORT STATUS: Signed DATE:07/12/22 TIME:1201 PATIENT: ANNIE CLAROS UNIT #: [id number] ROOM/BED: : 54 AGE: 72 SEX: F ATTEND: Caitlin Wood MD ADM AUTHOR: Caitlin Wood MD * ALL edits or amendments must be made on the electronic/computer document * Operative Report Operative Note Note: Cardiac catheterization procedure note Location: [facility] catheterization Lab Date of service: [...] Moderate sedation -Right radial artery access, 5/6 Ecuadorean slender sheath -Selective coronary angiography -Left heart catheterization -IVUS of the LCx -Successful PCI to the LCx with 3.0 x 28 mm and 2.25 x 24 mm Synergy XD PATRICK -22282 Moderate sedation, initial 15 minutes -71993 CAG+LHC -49456 PATRICK LCx -06311(+) IVUS LCx Findings: Coronary Anatomy: -Left main: [...] access site. Using Seldinger technique a 5/6 Ecuadorean slender sheath was introduced over the wire into the right radial artery without difficulty. A cocktail of verapamil and nitroglycerin was given IA as above. A 5 Ecuadorean [place] 4.0 catheter was introduced through the RRA [...] was focal 80 -90%. Utilizing the 6 Ecuadorean XB 3.0 guiding catheter, I selectively engaged the left. IV heparin was used for anticoagulation and ACT was measured periodically throughout theprocedure to maintain an ACT of 200-300 seconds. After adequate anticoagulation a run-through coronary wire was used to cross the lesion into the distal segment. I then introduced a [place] IVUS [place] eye over the wire and examined the [...] concerns were addressed. Caitlin Wood MD Attending Bioinformatics Associate [facility] Cardiology at 1208 RPT #: [id number] END OF REPORT [facility] 2022 13:39:00 [facility] ([facility]) Hospitalist Discharge Summary REPORT#:[id number] REPORT STATUS: Signed DATE:03/17/22 TIME:1339 PATIENT: ANNIE CLAROS UNIT #: [id number] ROOM/BED: [place] [address] : [birth year] AGE: 72 SEX: F ATTEND: [...] PFO management. 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 Patient has a history of diabetes mellitus with hemoglobin A1c of 9.2 and hypertension. She also had a CKD 3 and the creatinine remained at baseline. She remained hemodynamically stable for discharge and will follow up with her PCP, neurologist and high school computer science teacher outpatient. Pt. condition on discharge: stable Free [...] Musculoskeletal: normal inspection, painless range of motion Neuro/CABIN OUTFITTER: abnormal speech, alert, oriented X 3 Skin: dry, intact Psychiatry: normal affect, normal judgment/insight, normal mood, not homicidal, not suicidal Results Findings/Data: Laboratory Tests: 03/17 03/17 03/17 03/16 1108 0826 [id number] 2024 Chemistry Sodium (134 - 147 mmol/L) [...] Home/Self Care Additional Discharge Routines: PCP Follow-Up, [facility]ish Remover Follow-Up Diet: Cardiac Activity: Resume Normal Activity, As Tolerated Follow-up Appointments PCP follow-up: PCP: Jihan Calixto DO PCP follow up timeframe: In 1-2 weeks Consulting provider 1: Provider 1: Erick Barrios MD Specialty: Neurology Consult follow up timeframe: In 1-2 weeks at 1632 RPT #: [id number] END OF REPORT [facility] 2022 07:57:00 [facility] Cardiology Progress Note REPORT#:[id number] REPORT STATUS: Signed DATE:03/17/22 TIME:756 PATIENT: ANNIE CLAROS UNIT #: [id number] ROOM/BED: [place] [address] : 54 AGE: 72 SEX: F ATTEND: [...] LE assessment: no edema Musculoskeletal: normal inspection Neuro/CABIN OUTFITTER: alert, oriented X 3 Skin: dry, intact [...] weeks at 1121 at 1706 RPT #: [id number] END OF REPORT [facility] 2022-03-16 14:49:00 [facility] ([facility] Neurology Progress Note REPORT#:[id number] REPORT STATUS: Signed DATE:03/16/22 TIME:1449 PATIENT: ANNIE CLAROS UNIT #: [id number] ROOM/BED: [place] [address] : [birth year] AGE: 72 SEX: F ATTEND: [...] THE MORN; #5 - SIG Obtained From [facility] SUCRALFATE (CARAFATE) 1 GM PO AC [...] 0.4 MG ASDIR PRN IV Phenol (Chloraseptic [place]) 1 SPRAY ASDIR PRN MM Insulin Human [...] % (Auto) (20.5 - 51.1 %) 29.7 [place] % (Auto) (1.7 - 9.3 %) 9.2 Eos % (Auto) (0.0 - 6.0 %) 5.4 Baso % (Auto) (0.0 - 2.0 %) 0.8 Neut # (Auto) (1.8 - 7.6 K/mm3) 3.6 Lymph # (Auto) (0.6 - 3.2 K/mm3) 2.0 [place] # (Auto) (0.3 - 1.1 K/mm3) 0.6 [...] for the consult at 1309 RPT #: [id number] END OF REPORT [facility] 2022-03-16 13:02:00 [id number] [facility] [id number] [place] [id number] PATIENT NAME: ANNIE CLAROS ADMIT DATE: 03/14/22 ACCOUNT NO: [id number] ROOM NO: L.03 AGE: 71 REPORT TYPE: eTRANSESOPHAGEL REPORT SEX: F ADMITTING PHYSICIAN: Rosalinda Cr MD ATTENDING PHYSICIAN: Rosalinda Cr MD *[facility] [place]* [address] [place], [place] [address] Transesophageal Echocardiogram Patient: Annie Claros Study Date: 03/16/2022 BP: Location: [facility] URN: [id number] : 1950 Age: 71 Height: 65 in / 165 cm Gender: F Weight: 169 lb / 76.8 kg BMI/BSA: 28.2 kg/m 2 / 1.9 m 2 *Ordering Physician: * Daria Muhammad *Interpreting Physician: * Caitlin Wood MD *Jitney Driver: * Allison Cedeño ---- Indications: CVA, PFO. ---- Study data: Procedure: Transesophageal echocardiography was performed. An adult multiplane transesophageal probe was inserted by the attending high school computer science teacher without difficulty. Image quality was adequate. The [...] NAME: ANNIE CLAROS baseline state, shows a kqms-qw-sdutf atrial level shunt. Aorta: The aortic root [...] Doppler in the baseline state, shows a egmt-vp-xietv atrial level shunt. Prepared and electronically signed by Caitlin Wood MD 03/16/2022 13:02 at 1302 PATIENT NAME: ANNIE CLAROS [facility] 2022-03-16 09:08:00 [facility] ([facility]) Hospitalist Progress Note REPORT#:[id number] REPORT STATUS: Signed DATE:03/16/22 TIME:907 PATIENT: ANNIE CLAROS UNIT #: [id number] ROOM/BED: [place] [address] : [birth year] AGE: 71 SEX: F ATTEND: [...] 0.4 MG ASDIR PRN IV Phenol (Chloraseptic [place]) 1 SPRAY ASDIR PRN MM Insulin Human [...] Musculoskeletal: normal inspection, painless range of motion Neuro/CABIN OUTFITTER: abnormal speech, alert, oriented X 3 Skin: [...] % (Auto) (20.5 - 51.1 %) 29.7 [place] % (Auto) (1.7 - 9.3 %) 9.2 Eos % (Auto) (0.0 - 6.0 %) 5.4 Baso % (Auto) (0.0 - 2.0 %) 0.8 Neut # (Auto) (1.8 - 7.6 K/mm3) 3.6 Lymph # (Auto) (0.6 - 3.2 K/mm3) 2.0 [place] # (Auto) (0.3 - 1.1 K/mm3) 0.6 [...] daughter at bedside. at 1601 RPT #: [id number] END OF REPORT [facility] 2022-03-16 08:43:00 [facility] ([facility]) Cardiology Progress Note REPORT#:[id number] REPORT STATUS: Signed DATE:03/16/22 TIME:0843 PATIENT: ANNIE CLAROS UNIT #: [id number] ROOM/BED: [address] : [birth year] AGE: 72 SEX: F [...] 0.4 MG ASDIR PRN IV Phenol (Chloraseptic [place]) 1 SPRAY ASDIR PRN MM Insulin Human [...] LE assessment: no edema Musculoskeletal: normal inspection Neuro/CABIN OUTFITTER: alert, oriented X 3 Skin: dry, intact [...] % (Auto) (20.5 - 51.1 %) 29.7 [place] % (Auto) (1.7 - 9.3 %) 9.2 Eos % (Auto) (0.0 - 6.0 %) 5.4 Baso % (Auto) (0.0 - 2.0 %) 0.8 Neut # (Auto) (1.8 - 7.6 K/mm3) 3.6 Lymph # (Auto) (0.6 - 3.2 K/mm3) 2.0 [place] # (Auto) (0.3 - 1.1 K/mm3) 0.6 [...] Impression By: [email or web address] - Delbert Lance M.D. Telemetry Interpretation: sinus rhythm Diagnosis, [...] attending at 1334 at 1120 RPT #: [id number] END OF REPORT [facility] 2022-03-15 15:10:00 [facility] ([facility]) Neurology Consultation Note REPORT#:[id number] REPORT STATUS: Signed DATE:03/15/22 TIME:1509 PATIENT: ANNIE CLAROS UNIT #: [id number] ROOM/BED: [facility]03-1 : 52 AGE: 71 SEX: F ATTEND: Rosalinda Cr MD ADM AUTHOR: Preeti Crowell DRAFTING LAYOUT WORKER * ALL edits or amendments must be [...] 0.4 MG ASDIR PRN IV Phenol (Chloraseptic [place]) 1 SPRAY ASDIR PRN MM Insulin Human [...] no edema Musculoskeletal: painless range of motion Neuro/CABIN OUTFITTER: alert, oriented X 4, normal speech, EOMI [...] - 7.0 pH UNITS) 6.0 Ur Specific [place] (1.005 - 1.030 SG) <=1.005 Urine Protein [...] M.D. RADIOLOGY - XR CHEST 1 V 08/02 2205 Report Impression - Status: SIGNED Entered: 03/14/2022 2232 IMPRESSION: No evidence of acute abnormality. Impression By: [email or web address] Greg Watts M.D. MAGNETIC RESONANCE IMAGING - MRI BRAIN W/O CONTRAST 03/15 1100 Report Impression - Status: SIGNED Entered: 03/15/2022 1147 IMPRESSION: No acute intracranial process seen. Impression By: [email or web address] Greg Lance M.D. Results: labs reviewed, vital signs [...] consult at 1447 at 1540 RPT #: [id number] END OF REPORT [facility] 2022-03-15 13:23:00 [facility] ([facility]) Cardiology Consultation REPORT#:[id number] REPORT STATUS: Signed DATE:03/15/22 TIME:1323 PATIENT: ANNIE CLAROS UNIT #: [id number] ROOM/BED: [facility]03-1 : 52 AGE: 71 SEX: F ATTEND: [...] 0400 37.2 95 14 122/60 80 99 /03 0000 36.9 82 16 188/81 116 100 Room air 03/14 2218 161/74 103 08/02 2213 181/84 116 / 2205 99 / 2141 36.7 82 18 211/89 129 99 Room air 24 hour I O ending at 0700: 03 0700 08/ 1900 Intake Total Output Total Balance Patient [...] calf tenderness, no edema Musculoskeletal: normal inspection Neuro/CABIN OUTFITTER: alert, oriented X 3 Skin: dry, intact, [...] (0 - 34 ng/L) 3.4 Laboratory Tests 08/02 2145 Coagulation INR (0.8 - 1.2 INR Unit) 0.88 PTT ([place]) (26 - 35 SECONDS) 31.1 PT Patient/Control [...] - 7.0 pH UNITS) 6.0 Ur Specific [place] (1.005 - 1.030 SG) <=1.005 Urine Protein [...] Appreciate the referral. at 1530 at 1015 [facility] #: [id number] END OF REPORT [facility] 2022-03-15 12:48:00 [id number] [facility] [address] [place] [address] PATIENT NAME: ANNIE CLAROS ADMIT DATE: 03/14/22 ACCOUNT NO: [id number] ROOM NO: [facility] AGE: 71 REPORT TYPE: eECHOCARDIOGRAM REPORT SEX: F ADMITTING PHYSICIAN: Rosalinda Cr MD ATTENDING PHYSICIAN: Rosalinda Cr MD *[facility] [place]* [address] [address], [place] [address] Transthoracic Echocardiogram Patient: Annie Claros Study Date: 03/15/2022 BP: 133 / 55 Location: [facility] URN: [id number] : 1950 Age: 71 Height: 65 in / 165 cm Gender: F Weight: 169 lb / 76.8 kg BMI/BSA: 28.2 kg/m 2 / 1.9 m 2 *Ordering Physician: * Rosalinda CrInterpreting Physician: * Caitlin Wood MD *Jitney Driver: * Allison Cedeño ---- Indications: STROKE. ---- [...] ovale. Agitated saline contrast study shows a dbtyx-fh-aqpa shunt. Aortic valve: The valve is structurally [...] ovale. Agitated saline contrast study shows a ysimw-pi-orpt shunt. Impressions: Bubble study is positive for intracardiac shunt possibly a PFO. COURT is recommended. Prepared and electronically signed by PATIENT NAME: ANNIE CLAROS Caitlin Wood MD 03/15/2022 12:47 at 1248 PATIENT NAME: ANNIE CLAROS [facility] 2022-03-15 07:45:00 [facility] ([facility]) Hospitalist History Physical REPORT#:[id number] REPORT STATUS: Signed DATE:03/15/22 TIME:0745 PATIENT: ANNIE CLAROS UNIT #: [id number] ROOM/BED: [place] [address] : [birth year] AGE: 71 SEX: F ATTEND: [...] B/P Mean 74 / 0515 Temp 100.8 08/ 0515 Pulse 107 / 0515 Resp 14 03/15 0515 O2 Delivery Room air 08/ 0000 24 hour I O ending at 0700: 08/03 0700 / 1900 Intake Total Output Total [...] Musculoskeletal: normal inspection, painless range of motion Neuro/CABIN OUTFITTER: abnormal speech, alert, oriented X 3 Skin: [...] - 7.0 pH UNITS) 6.0 Ur Specific [place] (1.005 - 1.030 SG) <=1.005 Urine Protein [...] ONLY RESULT CODE: CVRMD Impression By: Brodie - Adri Hicks M.D. CAT SCAN - [...] status: full code at 1355 RPT #: [id number] END OF REPORT [facility] 2022-03-14 22:11:00 [facility] ([facility]) EMERGENCY PROVIDER REPORT REPORT#:[id number] REPORT STATUS: Signed DATE:03/14/22 TIME:2210 PATIENT: ANNIE CLAROS UNIT #: [id number] ROOM/BED: [place] : 54 AGE: 71 SEX: F PCP [...] (0.8 - 1.2 INR Unit) 0.88 PTT ([place]) (26 - 35 SECONDS) 31.1 PT Patient/Control [...] 03/14 2315 DC 03/14 IV 03/14 2316 2154 Diagnostic Agents Sig/Ivan Start time Last Medication Dose Route Stop Time Status Admin Iopamidol 0 .STK-MED ONE 03/14 2149 DC 03/14 .ROUTE 2202 Electrolytic, Caloric, And Inido Sig/Ivan Start time Last Medication Dose Route Stop Time Status Admin Sodium Chloride 100 ML .STK-MED ONE 03/14 2204 DC 03/14 IV 03/14 Consultation Consultation 1 Referral/Consult Name Amelia Deshpande MD Blemish Remover Called Neurology Requested Call Time 2146 Requested Call Date 03/14/22 Call Returned Call returned Call Returned Time 2146 Call Returned Date 03/14/22 Free Text Consult Notes Recommends waiting for her CT results prior to administering TPA Consultation 2 Referral/Consult Name ; Amelia Deshpande MD [facility]ish Remover Called Neurology Requested Call Time 2222 Requested Call Date 03/14/22 Call Returned Call returned Call Returned Time 2223 Call Returned Date 03/14/22 Blemish Remover Will see patient Free Text Consult Notes [...] will see patient at 0429 RPT #: [id number] END OF REPORT [facility]
[2024-12-19] MEDS ORDERED: TDAP (DIPHTH,PERTUSS(ACELL),TET VAC) 0.5 ML VIAL IMVAC ONE (19:36)
[2024-12-19 20:45] LABS: Absolute Basophils 0.1 K/uL (0-0.5); Absolute Eosinophils 0.1 K/uL (0-0.5); Absolute Lymphocytes (CBC) 1.9 K/uL (0.7-4.9); Absolute Monocytes 0.5 K/uL (0.1-1.3); Absolute Neutrophil 5.2 K/uL (1.8-8.0); Eosinophils % 1.6 % (0-4.4); Hematocrit 37.6 % (36.0-45.0); Hemoglobin 13.2 g/dL (12.0-15.0); Lymphocytes % 24.3 % (15.3-44.8); MCH 32.2 pg (27.0-35.0); MCHC 35.1 g/dL (32.0-36.0); MCV 91.5 fL (80-100); MPV 10.1 fL (7.6-11.3); Monocytes % 6.9 % (3.3-12.3); Neutrophils % 66.2 % (41.7-73.7); Nucleated Red Blood Cells % 0.1 % (0-0); Platelets 228 thou/uL (152-406); RBC Red Blood Cell Count 4.11 M/uL (3.86-4.86); Red Cell Distribution Width 12.8 % (12.1-15.2)
[2024-12-19 21:09] LABS: Anion Gap 12.1 mEq/L (5.0-15.0); Magnesium 1.1 mg/dL (1.6-2.4); Potassium 4.1 mEq/L (3.5-5.1)
[2024-12-19] MEDS ORDERED: NA CHLORIDE 0.9% 1,000 ML ONE (21:28)
[2024-12-19] MEDS ORDERED: Magnesium Sulfate 2gm IVPB 2 G/50 ML BAG IV ONE (21:28)
--- NOTE | 2024-12-19 22:11 | RAD REPORT ---
EXAM: CT brain without contrast HISTORY: TRAUMA COMPARISON: 12/06/2024 TECHNIQUE: Multiple contiguous axial images were obtained and a CT of the brain without contrast. Sag ittal and coronal reformats were performed. One or more of the following dose reduction techniques were used: Automated exposure control, adjustm ent of the mA and/or kV according to patient size, and/or iterative reconstruction. FINDINGS: No evidence of hydrocephalus, intracranial hemorrhage, or extra-axial fluid collection. Small areas of gliosis seen in both occipital lobes. No evidence of midline shift or areas of brain e alen. The calvarium is intact. The visualized paranasal sinuses and mastoid air cells are essentially clear . [Vertebral atherosclerosis. IMPRESSION: No evidence of acute intracranial abnormality. Electronically signed by: Anjum Pagan MD 12/19/2024 08:36 PM CDT Due to temporary technical issues with the PACS/[employer] reporting system, reports are being jaye d by the in-house radiologist without review as a courtesy to ensure prompt reporting the interpreting radiologist is fully responsible for the content of the report. Transcribed Date/Time: 12/19/2024 10:11 PM
--- NOTE | 2024-12-19 22:11 | RAD REPORT ---
EXAMINATION: CT MAXILLOFACIAL WITHOUT CONTRAST CLINICAL INDICATION: TRAUMA TECHNIQUE: Axial images were obtained through the facial bones and orbits without intravenous contras t. Sagittal and coronal reconstructions were created from the data. One or more of the following dose reduction techniques were used: Automated exposure control, adjustment of the mA and/or kV accor ding to patient size, and/or iterative reconstruction. Unless otherwise specified, incidental findings do not require dedicated imaging follow-up. COMPARISON: No prior exam. FINDINGS: SOFT TISSUE: No significant abnormalities. BONES: No evidence of fracture, dislocation, or aggressive osseous lesions. No lesion of the visual ized skull base or calvarium. ORBITS: The globes are intact. No intraorbital hemorrhage or mass. SINUSES: The visualized paranasal sinuses and mastoid air cells are essentially clear. IMPRESSION: No evidence of acute facial bone fracture. Electronically signed by: Anjum Pagan MD 12/19/2024 08:39 PM CDT Due to temporary technical issues with the PACS/[employer] reporting system, reports are being jaye d by the in-house radiologist without review as a courtesy to ensure prompt reporting the interpreting radiologist is fully responsible for the content of the report. Transcribed Date/Time: 12/19/2024 10:11 PM
[2024-12-19] MEDS ORDERED: LIDOCAINE 1% MPF 5 ML VIAL ONE (22:14)
--- NOTE | 2024-12-19 23:16 | EDPHYS ---
Physician Documentation [facility] Name: Annie Zuñiga Age: 74 yrs Sex: Female : 1950 Arrival Date: 12/19/2024 Time: 19:03 Bed 8 Private MD: ED Physician Desmond Gray HPI: 12/19 21:14 This 74 yrs old Female presents to ER via Ambulatory with complaints of Fall Injury. 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 sb4 Sustained an injury to her chin, upper lip, left pointer finger, left toe. Denies any loss of consciousness. Is on Eliquis. States that she has been experiencing recurrent falls over the past few weeks. States sometimes it secondary to dizziness, sometimes it secondary to clumsiness. Historical: - Allergies: 19:14 PENICILLINS; kd3 - PMHx: 19:14 CVA; Gout; Diabetes - NIDDM; High Cholesterol; Thyroid problem; Hypertension; kidney kd3 failure; ULCER; - PSHx: 19:14 cardiac stents; hysterectomy; loop recorder; kd3 - Immunization history:: Adult Immunizations up to date. - Infectious Disease History:: Denies. - Immunization history: Last tetanus immunization: unknown. - Social history:: Smoking status: Patient denies any tobacco usage or history of. ROS: 21:14 Constitutional: Negative for fever, chills, and weight loss, sb4 21:14 MS/extremity: Positive for injury or acute deformity, abrasion, pain, Per HPI, 21:14 All other systems are negative, Exam: 22:22 Constitutional: This is a well developed, well nourished patient who is awake, alert, sb4 and in no acute distress. Cardiovascular: Regular rate and rhythm with a normal S1 and S2. Respiratory: No increased work of breathing, no retractions or nasal flaring. Abdomen/GI: Soft, non-tender, no distension. 22:22 Head/face: Noted is abrasion(s), that are mild, of the chin and nose and left pointer finger, a laceration(s), that is superficial, of the upper lip, Vital Signs: 19:13 BP 192 / 100; Pulse 79; Resp 19; Temp 98.2(TE); Pulse Ox 99% on R/A; Weight 72.57 kg; kd3 Height 5 ft. 2 in. ; 20:19 BP 168 / 99; Pulse 74; Resp 16; Pulse Ox 98% on R/A; kd3 21:30 BP 175 / 82; Pulse 66; Resp 16; Pulse Ox 99% ; jj7 23:08 BP 168 / 73; Pulse 65; Resp 18; Temp 98.2; Pulse Ox 99% ; Pain 0/10; bm8 19:13 Body Mass Index 29.26 (72.57 kg, 157.48 cm) kd3 23:08 Pain Scale: Adult bm8 Joceline Coma Score: 19:13 Eye Response: spontaneous(4). Motor Response: obeys commands(6). Verbal Response: kd3 oriented(5). Total: 15. 23:08 Eye Response: spontaneous(4). Motor Response: obeys commands(6). Verbal Response: bm8 oriented(5). Total: 15. Trauma Score (Adult): 19:13 Eye Response: spontaneous(1); Verbal Response: oriented(1); Motor Response: obeys kd3 commands(2); Systolic BP: > 89 mm Hg(4); Respiratory Rate: 10 to 29 per min(4); Orrick Score: 15; Trauma Score: 12 Laceration: 23:16 Wound Repair of 2cm ( 0.8in ) subcutaneous laceration to upper lip. Distal sb4 neuro/vascular/tendon intact. Anesthesia: Wound infiltrated with 2 mls of 1% lidocaine. Wound prep: Wound irrigation with saline by me. Skin closed with 5-0 fast absorbing plain gut using simple sutures and sterile technique. Patient tolerated well. MDM: 19:15 Medical Screening Exam initiated sb4 23:17 Differential diagnosis: abrasion, closed head injury, contusion, fracture, laceration, sb4 multiple trauma, sprain, strain. Data reviewed: vital signs, nurses notes, lab test result(s), radiologic studies, and as a result, I will discharge patient. Counseling: I had a detailed discussion with the patient and/or guardian regarding the historical points, exam findings, and any diagnostic results supporting the discharge/admit diagnosis, lab results, radiology results, the need for outpatient follow up, for definitive care, to return to the emergency department if symptoms worsen or persist or if there are any questions or concerns that arise at home. 12/19 19:26 Order name: CBC with Diff; Complete Time: 20:55 sb4 12/19 19:26 Order name: BMP; Complete Time: 21:10 sb4 12/19 19:26 Order name: Magnesium; Complete Time: 21:10 sb4 12/19 19:26 Order name: Facial Bones W/O Con CT; Complete Time: 22:21 sb4 12/19 19:26 Order name: Head Brain Wo Cont CT; Complete Time: 22:21 sb4 12/19 19:26 Order name: IV Start; Complete Time: 19:33 sb4 12/19 19:26 Order name: Wound Care; Complete Time: 19:43 sb4 Administered Medications: 19:41 Drug: Boostrix Tdap IM 0.5 ml IM once; as a single dose Route: IM; Site: right deltoid; kd3 23:08 Follow up: Response: No adverse reaction bm8 21:30 Drug: Magnesium Sulfate IVPB 2 grams IVPB once over 1 hrs Route: IVPB; Infused Over: 1 jj7 hrs; Site: left antecubital; 22:30 Follow up: IV Status: Completed infusion jj7 23:08 Follow up: Response: No adverse reaction; IV Status: Completed infusion bm8 21:35 Drug: NS 0.9% IV 1000 ml IV at 1 bolus Per protocol; to be given as a bolus over 60 jj7 minutes Route: IV; Rate: 1 bolus; Site: left antecubital; 23:08 Follow up: Response: No adverse reaction; IV Status: Completed infusion bm8 23:07 Drug: Lidocaine Infiltration (1 %) 5 ml 5 ml Infiltration once; to bedside {Note: by 8 provider.} Volume: 5 ml; Route: Infiltration; Site: affected area; Disposition: 21:25 I was immediately available on-site in the Emergency Department for consultation in the ms3 care of the patient. Disposition Summary: 12/19/24 23:15 Discharge Ordered Notes: Location: Home sb4 Problem: new sb4 Symptoms: have improved sb4 Condition: Stable sb4 Diagnosis - Fall on same level, unspecified sb4 - Laceration without foreign body of lip sb4 - Hypomagnesemia sb4 Followup: sb4 - With: Claudio Rowe DO - When: 1 week - Reason: Recheck today's complaints, Re-evaluation by your physician Discharge Instructions: - Discharge Summary Sheet sb4 - Fall Prevention in the Home, Adult sb4 - Hypomagnesemia sb4 - Mouth Laceration, Rmbw-zr-Vxox sb4 Forms: - Patient Portal Instructions sb4 - Leadership Thank You Letter sb4 Prescriptions: - methocarbamol 750 mg Oral tablet - take 1 tablet ORAL route 3 times per day; 20 tablet; Refills: 0, Product sb4 Selection Permitted Signatures: Dispatcher [employer] EDDesmond Vick DO DO ms3 Sandrine Ross, RN RN kd3 Rebeka Campa RN RN jj7 Sameera Egan, PA-C PA-C sb4 Juan Luis Luis, RN RN bm8
--- NOTE | 2024-12-19 23:16 | ER ---
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 This is not the first time i have fallen doing door [employer]. PT is positive for blood thinners and has a notable laceration to the top lip with abrasions on the nose and chin. PT states she had he dentures in and the dentures broke when she fell. PT also had an abrasion to the left middle finger. Ebola Screen: No symptoms or risks identified at this time. 19:11 Method Of Arrival: Ambulatory [facility] 19:13 Coronavirus screen: Vaccine status: Patient reports receiving the 2nd dose of the covid kd3 vaccine. Initial Sepsis Screen: Does the patient meet any 2 criteria? No. Patient's initial sepsis screen is negative. Does the patient have a suspected source of infection? No. Patient's initial sepsis screen is negative. Risk Assessment: Do you want to hurt yourself or someone else? Patient reports no desire to harm self or others. Onset of symptoms was December 19, 2024. 19:13 Acuity: BONI 3 kd3 19:13 Care prior to arrival: None. kd3 19:13 Mechanism of Injury: Fall from standing position. Trauma event details: Injury occurred kd3 in the [facility]. Triage Assessment: 19:14 General: Appears in no apparent distress. Behavior is calm, cooperative. Pain: kd3 Complains of pain in nose, mouth and chin. Neuro: Level of Consciousness is awake, alert, obeys commands, Oriented to person, place, time, situation. Respiratory: Airway is patent Trachea midline Respiratory effort is even, unlabored. 19:16 Injury Description: Laceration sustained to nose, upper iona border, upper lip kd3 and chin. Historical: - Allergies: 19:14 PENICILLINS; kd3 - PMHx: 19:14 CVA; Gout; Diabetes - NIDDM; High Cholesterol; Thyroid problem; Hypertension; kidney kd3 failure; ULCER; - PSHx: 19:14 cardiac stents; hysterectomy; loop recorder; kd3 - Immunization history:: Adult Immunizations up to date. - Infectious Disease History:: Denies. - Immunization history: Last tetanus immunization: unknown. - Social history:: Smoking status: Patient denies any tobacco usage or history of. Screenin:13 [facility] ED Fall Risk Assessment (Adult) History of falling in the last 3 months, kd3 including since admission Yes- fall prone (multiple falls) (3 pts) Confusion or Disorientation No (0 pts) Intoxicated or Sedated No (0 pts) Impaired Gait No (0 pts) Mobility Assist Device Used No (0 pt) Altered Elimination No (0 pt) Score/Fall Risk Level 3 or more points = High Risk Maintained a safe environment, Hourly rounding (assess needs \T\ fall precautionary measures) done. Abuse screen: Denies threats or abuse. Denies injuries from another. 19:13 Nutritional screening: No deficits noted. Tuberculosis screening: No symptoms or risk kd3 factors identified. Primary Survey: 19:13 NO uncontrolled hemorrhage observed. kd3 19:13 Breathing/Chest: Spontaneous respiratory effort, equal unlabored respirations, breath kd3 sounds clear bilaterally, regular pattern, symmetrical chest rise and fall. Circulation: No external hemorrhage present. Regular and strong central pulse, skin warm/dry/normal color. Disability Pupils are equal, round, reactive to light and accommodation. Exposure/Environment: There is no evidence of uncontrolled external bleeding. Obvious injury(ies) are noted at this time: See triage note. 23:54 Reassessment Breathing:. jj7 Assessment: 21:30 Reassessment: ASSUMED CARE OF PT. PT SITTING IN BED. SMALL WOUND TO CHIN AND UPPER LIP. jj7 CALL K[place]OR IN REACH. General: Appears in no apparent distress. uncomfortable, Behavior is calm, cooperative, appropriate for age. Derm: Wound noted mouth and chin. 23:08 Reassessment: Patient appears in no apparent distress at this time. Patient and/or bm8 family updated on plan of care and expected duration. Pain level reassessed. Patient is alert, oriented x 3, equal unlabored respirations, skin warm/dry/pink. Patient states feeling better. Patient states symptoms have improved. Pain: Pain currently is 0 out of 10 on a pain scale. Vital Signs: 19:13 BP 192 / 100; Pulse 79; Resp 19; Temp 98.2(TE); Pulse Ox 99% on R/A; Weight 72.57 kg; kd3 Height 5 ft. 2 in. ; 20:19 BP 168 / 99; Pulse 74; Resp 16; Pulse Ox 98% on R/A; kd3 21:30 BP 175 / 82; Pulse 66; Resp 16; Pulse Ox 99% ; jj7 23:08 BP 168 / 73; Pulse 65; Resp 18; Temp 98.2; Pulse Ox 99% ; Pain 0/10; bm8 19:13 Body Mass Index 29.26 (72.57 kg, 157.48 cm) kd3 23:08 Pain Scale: Adult bm8 Bethel Coma Score: 19:13 Eye Response: spontaneous(4). Motor Response: obeys commands(6). Verbal Response: kd3 oriented(5). Total: 15. 23:08 Eye Response: spontaneous(4). Motor Response: obeys commands(6). Verbal Response: bm8 oriented(5). Total: 15. Trauma Score (Adult): 19:13 Eye Response: spontaneous(1); Verbal Response: oriented(1); Motor Response: obeys kd3 commands(2); Systolic BP: > 89 mm Hg(4); Respiratory Rate: 10 to 29 per min(4); Joceline Score: 15; Trauma Score: 12 ED Course: 19:06 Patient arrived in ED. al6 19:07 Sameera Egan PA-C is PHCP. sb4 19:07 Desmond Gray DO is Attending Physician. sb4 19:13 Patient has correct armband on for positive identification. kd3 19:14 Triage completed. kd3 19:14 Arm band placed on right wrist. kd3 19:20 Sandrine Ross, IRINEO is Primary Nurse. kd3 19:34 CBC with Diff Sent. kd3 19:34 BMP Sent. kd3 19:34 Magnesium Sent. kd3 20:22 Patient maintains SpO2 saturation greater than 95% on room air. kd3 20:26 Facial Bones W/O Con CT In Process Unspecified. EDMS 20:26 Head Brain Wo Cont CT In Process Unspecified. EDMS 23:08 Provided Education on: post er care, at home wound care. Client placed on continuous bm8 cardiac and pulse oximetry monitoring. NIBP monitoring applied. Pulse ox on. NIBP on. Door closed. Warm blanket given. Pillow given. Verbal reassurance given. Head of bed lowered. 23:08 Assist provider with laceration repair on mouth that was 2.5 cm. or less using sutures. bm8 Set up tray. Performed by Sameera Egan PA-C Patient tolerated well. Patient did not have IV access during this emergency room visit. 23:15 Claudio Rowe DO is Referral Physician. sb4 Administered Medications: 19:41 Drug: Boostrix Tdap IM 0.5 ml IM once; as a single dose Route: IM; Site: right deltoid; kd3 23:08 Follow up: Response: No adverse reaction bm8 21:30 Drug: Magnesium Sulfate IVPB 2 grams IVPB once over 1 hrs Route: IVPB; Infused Over: 1 jj7 hrs; Site: left antecubital; 22:30 Follow up: IV Status: Completed infusion jj7 23:08 Follow up: Response: No adverse reaction; IV Status: Completed infusion bm8 21:35 Drug: NS 0.9% IV 1000 ml IV at 1 bolus Per protocol; to be given as a bolus over 60 jj7 minutes Route: IV; Rate: 1 bolus; Site: left antecubital; 23:08 Follow up: Response: No adverse reaction; IV Status: Completed infusion bm8 23:07 Drug: Lidocaine Infiltration (1 %) 5 ml 5 ml Infiltration once; to bedside {Note: by bm8 provider.} Volume: 5 ml; Route: Infiltration; Site: affected area; Medication: 23:08 VIS not applicable for this client. bm8 Outcome: 23:15 Discharge ordered by MD. ortiz 23:55 Discharged to home ambulatory, with family, mina 23:55 Condition: improved 23:55 Discharge instructions given to patient, Instructed on discharge instructions, medication usage, wound care, Demonstrated understanding of instructions, medications, wound care, Prescriptions given X 1, 23:55 Patient left the ED. 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 This is not the first time i have fallen doing [employer]. PT is positive for blood thinners and has a notable laceration to the top lip with abrasions on the nose and chin. PT states she had he dentures in and the dentures broke when she fell. kd3 21:50 20:30 BP 175 / 82; Pulse 66bpm; Resp 16bpm; Pulse Ox 99%; jj7 j7 21:50 20:30 Reassessment: ASSUMED CARE OF PT. PT SITTING IN BED. SMALL WOUND TO CHIN AND jj7 UPPER LIP. CALL [place] IN REACH. jj7 21:50 20:30 General: Appears in no apparent distress. uncomfortable, Behavior is calm, jj7 cooperative, appropriate for age, jj7 21:50 20:30 Derm: Wound noted mouth and chin jj7 jj7 23:08 23:07 Lidocaine Infiltration (1 %) 5 ml 5 ml Infiltration in affected area bm8 bm8
[2024-12-19 23:59] VITALS: TEMP 98.2; O2SAT 99
[2024-12-20 00:19] VITALS: BP 168/73
== END 2024-12-19 23:55 | disposition home or self-care (01) ==
LOC: ER 19:03
DX: S01.511A Laceration without foreign body of lip, initial encounter (principal); W01.0XXA Fall on same level from slipping, tripping and stumbling without subsequent striking against object, initial encounter; E83.42 Hypomagnesemia; Z23 Encounter for immunization; Z86.73 Personal history of transient ischemic attack (TIA), and cerebral infarction without residual deficits; Z79.01 Long term (current) use of anticoagulants; Z95.818 Presence of other cardiac implants and grafts
CPT/HCPCS: 96365; 96361; 85025; 80048; 36415; 83735; 70450; 70486; 76377; 90715; 96372; 99284; 12011; J3475; J2003; J7030